=== PATIENT | female | born 1940 | race Caucasian/White ===

== ENCOUNTER 2018-03-11 23:50 | Emergency (ER) | payer OTHER, BC ==
--- OUTSIDE RECORDS SUMMARY | 2018-03-11 23:53 | XMS REPORT | Clinical Summary ---
:1940 Author Organization [facility] Address [address] [place] [address] Phone Care Team Providers Name Role Phone Unavailable Primary Care Provider Unavailable Allergies Active Allergy Reactions Severity Noted Date Comments Lisinopril Other (See Comments) 03/19/2017 Dry cough Current Medications Prescription Sig. Disp. Refills Start End Status Date Date CHOLECALCIFEROL, Take by mouth. Suspended VITAMIN D3, (VITAMIN D3 ORAL) insulin glargine Inject 10 Units Discontinued (LANTUS) 100 subcutaneously 017 unit/mL injection nightly Use as directed . levoFLOXacin Take 500 mg by Discontinued (LEVAQUIN) 500 MG mouth daily. 017 tablet levothyroxine Take 50 mcg by Discontinued (SYNTHROID, mouth Every 018 LEVOTHROID) 50 MCG morning on an tablet empty stomach. magnesium oxide Take 400 mg by Discontinued (MAG-OX) 400 mg mouth daily. 017 tablet sodium bicarbonate Take 1 tablet by Discontinued 650 MG tablet mouth 2 (two) 017 times daily. HYDROcodone-acetami Take 2 tablets by Suspended nophen (NORCO mouth every 6 10-325) 10-325 mg (six) hours as per tablet needed for Pain . anastrozole Take 1 mg by mouth Discontinued (ARIMIDEX) 1 mg daily. 018 tablet fLUoxetine (PROZAC) Take 10 mg by Suspended 10 MG capsule mouth daily. pravastatin Take 20 mg by Suspended (PRAVACHOL) 20 MG mouth nightly. tablet cyclobenzaprine Take 10 mg by Discontinued (FLEXERIL) 5 MG mouth 3 (three) 018 tablet times daily as needed for Muscle spasms . cephalexin (KEFLEX) Take 1 capsule 20 capsule 0 500 MG capsule (500 mg total) by 7 017 mouth 4 (four) times daily for 5 days. furosemide (LASIX) Take 20 mg by Suspended 20 MG tablet mouth 2 (two) times daily. potassium chloride Take 20 mEq by Suspended (KLOR-CON) 20 mEq mouth 2 (two) packet times daily. metoprolol Take 25 mg by Suspended (TOPROL-XL) 25 MG mouth daily. 24 hr tablet cefdinir (OMNICEF) Take 1 capsule 10 capsule 0 300 MG capsule (300 mg total) by 7 017 mouth 2 (two) times daily for 5 days. acetaminophen-codei Take 1 tablet by 15 tablet 0 Discontinued ne (TYLENOL #3) mouth every 6 7 018 300-30 mg per (six) hours as tablet needed for Pain (WARNING CAUSES SEDATION) for up to 15 doses. Max Daily Amount: 4 tablets omeprazole Take 40 mg by Suspended (PRILOSEC) 40 MG mouth daily. capsule levoFLOXacin Take 1 tablet (750 7 tablet 0 (LEVAQUIN) 750 MG mg total) by mouth 8 018 tablet daily for 7 days. Active Problems Problem Noted Date Hydronephrosis 08/06/2017 Nephrostomy tube displaced (HCC) 08/06/2017 Ureteral stricture 03/23/2017 History of cervical cancer 11/02/1987 Encounters Date Type Specialty Care Team Description 02/24/2018 Hospital Encounter Radiology Vince Buchanan HydronephrosisCaeasr MD unspecified hydronephrosis type 02/18/2018 Outside Orders Central Scheduling Vince BuchananphCaesar carvalho MD unspecified hydronephrosis type (Primary Dx) 12/28/2017 Emergency Emergency Medicine Leslie Wiseman Obstructed nephrostomy MD Yaya tube ([facility]) (Primary Dx);Right upper quadrant abdominal pain;Acute right-sided thoracic back pain;Hydronephrosis with ureteral stricture, not elsewhere classified;Nephrostomy tube displaced (HCC) 12/10/2017 Emergency Emergency Medicine Lselie Abraham Nephrostomy tube MD Drake displaced ([facility]) (Primary Dx);Acute pyelonephritis;Control led type 2 diabetes mellitus without complication, unspecified custodial insulin use status ([facility]);History of cervical cancer 11/19/2017 Hospital Encounter Radiology Vince Buchanan HydronephrosisCaesar MD unspecified hydronephrosis type 11/12/2017 Outside Orders Central Scheduling Vince Buchanan HydronephrosisCaesar MD unspecified hydronephrosis type (Primary Dx) 10/31/2017 Emergency Emergency Medicine Henry Barrett Nephlorie Payan MD complication ([facility]) (Primary Dx);Flank pain 08/05/2017 - Emergency General Internal Tj Roberts Hydronephrosis, 08/07/2017 Medicine MD Dilan unspecified Massumi Eneida hydronephrosis type MD Nikunj (Primary Dx);Nephrostomy tube displaced ([facility]) 07/07/2017 Emergency Emergency Medicine Augustine North Malfunction of MD Dilan nephrostomy tube ([facility]) (Primary Dx);Urinary tract infection without hematuria, site unspecified;Dehydratio n 06/16/2017 Procedure Pass 05/06/2017 Hospital Encounter Radiology Vince Buchanan Canceled (Patient) MD Caesar 05/01/2017 Emergency Emergency Medicine Leslie Abraham Nephrostomy tube MD Drake displaced ([facility]) (Primary Dx);Urinary tract infection associated with nephrostomy catheter, initial encounter ([facility]) 03/23/2017 - Hospital Encounter General Internal Vince Buchanan History of cervical 03/24/2017 Medicine MD Caesar cancer 03/23/2017 Procedure Pass 03/23/2017 Surgery Vince Buchanan CYSTOSCOPY,RETROGRADES MD Caesar 03/20/2017 Anesthesia Event Mariama Goff MD 03/19/2017 Orders Only Pre-Admission Lilian Fry Testing L after 03/10/2017 Family History Medical History Relation Name Comments Heart disease Daughter Cancer Father Diabetes Mother Heart disease Mother Diabetes Sister Relation Name Status Comments Daughter Father Mother Sister Social History Tobacco Use Types Packs/Day Years Used Date Never Smoker Smokeless Tobacco: Never Used Alcohol Use Drinks/Week oz/Week Comments Yes 14 Glasses of wine 8.4 Sex Assigned at Date Recorded Not on file Last Filed Vital Signs Vital Sign Reading Time Taken Blood Pressure 145/67 02/24/2018 11:55 AM CDT Pulse 71 02/24/2018 11:55 AM CDT Temperature 36.7 C (98 F) 02/24/2018 10:05 AM CDT Respiratory Rate 18 02/24/2018 11:55 AM CDT Oxygen Saturation 100% 02/24/2018 11:55 AM CDT Inhaled Oxygen Concentration - - Weight 59 kg (130 lb) 12/28/2017 8:41 AM HOOP FLARING MACHINE OPERATOR HELPER Height 157.5 cm (5' 2") 12/28/2017 8:41 AM HOOP FLARING MACHINE OPERATOR HELPER Body Mass Index 23.78 12/28/2017 8:41 AM HOOP FLARING MACHINE OPERATOR HELPER Plan of Treatment Not on file Procedures The patient is currently admitted. The information in this section might not be complete until the patient is discharged. Procedure Name Priority Date/Time Associated Diagnosis Comments CYSTOSCOPY,RETROGRADES 03/23/2017 10:55 AM Hydronephrosis, CDT bilateral after 03/10/2017 Results IR Nephrosotomy Tube Change Right (02/24/2018 11:50 AM)Only the most recent of7 resultswithin the time period is included. Specimen Performing Laboratory GE [facility] Narrative FINAL REPORT Left percutaneous nephroureterostomy and right percutaneous nephrostomy catheter exchange. History: 77-year-old female with history of ureteral strictures presents for routine catheter exchange. Modality: Fluoroscopy Sedation: None Car Wash Attendant:Gerald Baeza MD. Metal Weather Stripper:None. Approach: Bilateral flanks Estimated blood loss:< 5 cc. Specimen: None. Fluoroscopy Time: 1.4 min. Reference Air Kerma (Ka, r): 17.0 mGy. Technique: Informed written consent was obtained. Discussion of risks, benefits, and alternatives were made with the patient. The patient expressed understanding and agreed to proceed.A universal timeout was performed prior to starting the procedure.All elements maximal sterile barrier technique was utilized for this procedure, including utilization of sterile scrub solution for skin prep, a large sterile sheet to cover the areas of the patient that were not prepped, and hand hygiene, mask, head covering, and sterile gown for performing radiologist and scrub technologist. A pressroom foreman image images was obtained. Contrast was injected through the indwelling left percutaneous nephroureterostomy catheter confirming position. 2% lidocaine was used for local anesthesia. The indwelling catheter was cut and a 0.035 Bentson wire was advanced and coiled within the urinary bladder. The existing catheter was removed over wire and a new 8.5 [place] by 22 cm nephroureterostomy was advanced over wire with distal pigtail formed in the urinary bladder and proximal pigtail within the left renal pelvis. Contrast injection confirmed position. The catheter was fixed to the skin with silk suture. A sterile dressing was applied. Next, contrast was injected through the right particularly in his nephrostomy catheter confirming position. 2% lidocaine was used for local anesthesia. The indwelling catheter was cut and a 0.035 Bentson wire was advanced and coiled within the right renal pelvis. The existing catheter was removed the wire and a new 10.2 [place] pigtail catheter was advanced over wire with pigtail formed within the right renal pelvis. The catheter was fixed to the skin with silk suture and dressing was applied. The patient tolerated the procedure well without immediate complication. Impression: Successful fluoroscopic-guided left percutaneous nephroureterostomy and right percutaneous nephrostomy catheter exchange. Signed: Gerald Baeza MD Report Verified Date/Time:02/24/2018 16:05:12 Reading Location: [place] [address] Angio Body Reading Room Procedure Note Interface, External Ris In - 02/24/2018 4:07 PM CDT FINAL REPORT Left percutaneous nephroureterostomy and right percutaneous nephrostomy catheter exchange. History: 77-year-old female with history of ureteral strictures presents for routine catheter exchange. Modality: Fluoroscopy Sedation: None Car Wash Attendant: Gerald Baeza MD. Metal Weather Stripper: None. Approach: Bilateral flanks Estimated blood loss: < 5 cc. Specimen: None. Fluoroscopy Time: 1.4 min. Reference Air Kerma (Ka, r): 17.0 mGy. Technique: Informed written consent was obtained. Discussion of risks, benefits, and alternatives were made with the patient. The patient expressed understanding and agreed to proceed. A universal timeout was performed prior to starting the procedure. All elements maximal sterile barrier technique was utilized for this procedure, including utilization of sterile scrub solution for skin prep, a large sterile sheet to cover the areas of the patient that were not prepped, and hand hygiene, mask, head covering, and sterile gown for performing radiologist and scrub technologist. A pressroom foreman image images was obtained. Contrast was injected through the indwelling left percutaneous nephroureterostomy catheter confirming position. 2% lidocaine was used for local anesthesia. The indwelling catheter was cut and a 0.035 Bentson wire was advanced and coiled within the urinary bladder. The existing catheter was removed over wire and a new 8.5 [place] by 22 cm nephroureterostomy was advanced over wire with distal pigtail formed in the urinary bladder and proximal pigtail within the left renal pelvis. Contrast injection confirmed position. The catheter was fixed to the skin with silk suture. A sterile dressing was applied. Next, contrast was injected through the right particularly in his nephrostomy catheter confirming position. 2% lidocaine was used for local anesthesia. The indwelling catheter was cut and a 0.035 Bentson wire was advanced and coiled within the right renal pelvis. The existing catheter was removed the wire and a new 10.2 [place] pigtail catheter was advanced over wire with pigtail formed within the right renal pelvis. The catheter was fixed to the skin with silk suture and dressing was applied. The patient tolerated the procedure well without immediate complication. Impression: Successful fluoroscopic-guided left percutaneous nephroureterostomy and right percutaneous nephrostomy catheter exchange. Signed: Gerald Baeza MD Report Verified Date/Time: 02/24/2018 16:05:12 Reading Location: [place] [address] Angio Body Reading Room Nephrosotomy Tube Change Left (02/24/2018 11:30 AM)Only the most recent of3 resultswithin the time period is included. Specimen Performing Laboratory GE RIS Narrative FINAL REPORT Left percutaneous nephroureterostomy and right percutaneous nephrostomy catheter exchange. History: 77-year-old female with history of ureteral strictures presents for routine catheter exchange. Modality: Fluoroscopy Sedation: None Car Wash Attendant:Gerald Baeza MD. Metal Weather Stripper:None. Approach: Bilateral flanks Estimated blood loss:< 5 cc. Specimen: None. Fluoroscopy Time: 1.4 min. Reference Air Kerma (Ka, r): 17.0 mGy. Technique: Informed written consent was obtained. Discussion of risks, benefits, and alternatives were made with the patient. The patient expressed understanding and agreed to proceed.A universal timeout was performed prior to starting the procedure.All elements maximal sterile barrier technique was utilized for this procedure, including utilization of sterile scrub solution for skin prep, a large sterile sheet to cover the areas of the patient that were not prepped, and hand hygiene, mask, head covering, and sterile gown for performing radiologist and scrub technologist. A pressroom foreman image images was obtained. Contrast was injected through the indwelling left percutaneous nephroureterostomy catheter confirming position. 2% lidocaine was used for local anesthesia. The indwelling catheter was cut and a 0.035 Bentson wire was advanced and coiled within the urinary bladder. The existing catheter was removed over wire and a new 8.5 [place] by 22 cm nephroureterostomy was advanced over wire with distal pigtail formed in the urinary bladder and proximal pigtail within the left renal pelvis. Contrast injection confirmed position. The catheter was fixed to the skin with silk suture. A sterile dressing was applied. Next, contrast was injected through the right particularly in his nephrostomy catheter confirming position. 2% lidocaine was used for local anesthesia. The indwelling catheter was cut and a 0.035 Bentson wire was advanced and coiled within the right renal pelvis. The existing catheter was removed the wire and a new 10.2 [place] pigtail catheter was advanced over wire with pigtail formed within the right renal pelvis. The catheter was fixed to the skin with silk suture and dressing was applied. The patient tolerated the procedure well without immediate complication. Impression: Successful fluoroscopic-guided left percutaneous nephroureterostomy and right percutaneous nephrostomy catheter exchange. Signed: Gerald Baeza MD Report Verified Date/Time:02/24/2018 16:05:12 Reading Location: [facility] [address] Angio Body Reading Room Procedure Note Interface, External Ris In - 02/24/2018 4:07 PM CDT FINAL REPORT Left percutaneous nephroureterostomy and right percutaneous nephrostomy catheter exchange. History: 77-year-old female with history of ureteral strictures presents for routine catheter exchange. Modality: Fluoroscopy Sedation: None Car Wash Attendant: Gerald Baeza MD. Metal Weather Stripper: None. Approach: Bilateral flanks Estimated blood loss: < 5 cc. Specimen: None. Fluoroscopy Time: 1.4 min. Reference Air Kerma (Ka, r): 17.0 mGy. Technique: Informed written consent was obtained. Discussion of risks, benefits, and alternatives were made with the patient. The patient expressed understanding and agreed to proceed. A universal timeout was performed prior to starting the procedure. All elements maximal sterile barrier technique was utilized for this procedure, including utilization of sterile scrub solution for skin prep, a large sterile sheet to cover the areas of the patient that were not prepped, and hand hygiene, mask, head covering, and sterile gown for performing radiologist and scrub technologist. A pressroom foreman image images was obtained. Contrast was injected through the indwelling left percutaneous nephroureterostomy catheter confirming position. 2% lidocaine was used for local anesthesia. The indwelling catheter was cut and a 0.035 Bentson wire was advanced and coiled within the urinary bladder. The existing catheter was removed over wire and a new 8.5 [place] by 22 cm nephroureterostomy was advanced over wire with distal pigtail formed in the urinary bladder and proximal pigtail within the left renal pelvis. Contrast injection confirmed position. The catheter was fixed to the skin with silk suture. A sterile dressing was applied. Next, contrast was injected through the right particularly in his nephrostomy catheter confirming position. 2% lidocaine was used for local anesthesia. The indwelling catheter was cut and a 0.035 Bentson wire was advanced and coiled within the right renal pelvis. The existing catheter was removed the wire and a new 10.2 [place] pigtail catheter was advanced over wire with pigtail formed within the right renal pelvis. The catheter was fixed to the skin with silk suture and dressing was applied. The patient tolerated the procedure well without immediate complication. Impression: Successful fluoroscopic-guided left percutaneous nephroureterostomy and right percutaneous nephrostomy catheter exchange. Signed: Gerald Baeza MD Report Verified Date/Time: 02/24/2018 16:05:12 Reading Location: [place] [id number] Angio Body Reading Room /aPTT (12/28/2017 9:33 AM)Only the most recent of5 resultswithin the time period is included. Component Value Ref Range Protime 13.0 11.7 - 14.7 seconds INR 1.0 <=5.9 PTT 28.9 22.5 - 36.0 seconds Specimen Performing Laboratory Blood [address] [address] Narrative RECOMMENDED COUMADIN/WARFARIN INR THERAPY RANGES STANDARD DOSE: 2.0 - 3.0 Includes: PROPHYLAXIS for venous thrombosis, systemic embolization; TREATMENT for venous thrombosis and/or pulmonary embolus. HIGH RISK: Target INR is 2.5-3.5 for patients with mechanical heart valves. Urinalysis w/Microscopic (12/28/2017 9:32 AM)Only the most recent of6 resultswithin the time period is included. Component Value Ref Range Color, UA [place] Clarity, UA Cloudy Specific Flom, UA 1.021 1.001 - 1.035 pH, UA 8.5 (H) 5.0 - 8.0 Protein, UA >600 mg/dL (A) Negative Glucose, UA Negative Negative Ketones, UA Negative Negative Bilirubin, UA Positive (A) Negative Blood, UA Negative Negative Nitrite, UA Positive (A) Negative Leukocytes, UA Small (A) Negative Urobilinogen, UA 2.0 (H) 0.2 - 1.0 mg/dL RBC, UA 0 /HPF WBC, UA 94 /HPF Mucus Occasional Triple Phosphate Crystals Moderate Specimen Source Urine, Nephrostomy Specimen Performing Laboratory Urine - Urine, Nephrostomy [address] [address] Urine culture (12/28/2017 9:32 AM)Only the most recent of5 resultswithin the time period is included. Component Value Ref Range Result >100,000 col/mL skin thomas Specimen Performing Laboratory Urine - Urine, Nephrostomy [address] [address] CBC with platelet count + automated diff (12/28/2017 9:31 AM)Only the most recent of8 resultswithin the time period is included. Component Value Ref Range WBC 10.4 3.5 - 10.5 K/L RBC 3.48 (L) 3.93 - 5.22 M/L Hemoglobin 10.8 (L) 11.2 - 15.7 GM/DL Hematocrit 34.4 34.1 - 44.9 % MCV 98.9 (H) 79.4 - 94.8 fL MCH 31.0 25.6 - 32.2 pg MCHC 31.4 (L) 32.2 - 35.5 GM/DL RDW 14.0 11.7 - 14.4 % Platelets 255 150 - 450 K/CU MM MPV 10.6 9.4 - 12.3 fL nRBC 0 0 - 0 /100 WBC % Neutros 82 % % Lymphs 9 % % Monos 8 % % Eos 1 % % Baso 0 % # Neutros 8.58 (H) 1.56 - 6.13 K/L # Lymphs 0.95 (L) 1.18 - 3.74 K/L # Monos 0.79 (H) 0.24 - 0.36 K/L # Eos 0.05 0.04 - 0.36 K/L # Baso 0.02 0.01 - 0.08 K/L Immature Granulocytes-Relative 0 0 - 1 % Specimen Performing Laboratory Blood - Arm, [address] [address] CBC with platelet count + automated diff (12/28/2017 9:31 AM)Only the most recent of8 resultswithin the time period is included. Specimen Performing Laboratory Blood Narrative The following orders were created for panel order CBC with platelet count + automated diff. Procedure Abnormality Status --------- ------ CBC with platelet count ...[[id number]]AbnormalFinal result Please view results for these tests on the individual orders. Basic Metabolic Panel (12/28/2017 9:31 AM)Only the most recent of9 resultswithin the time period is included. Component Value Ref Range Sodium 137 136 - 145 meq/L Potassium 5.0 3.5 - 5.1 meq/L Chloride 104 98 - 107 meq/L CO2 25 22 - 29 meq/L BUN 39 (H) 7 - 21 mg/dL Creatinine 1.13 0.57 - 1.25 mg/dL Glucose 127 (H) 70 - 105 mg/dL Calcium 9.0 8.4 - 10.2 mg/dL EGFR 47Comment: ESTIMATED GFR IS NOT ACCURATE mL/min/1.73 sq m CREATININE CLEARANCE IN PREDICTING GLOMERULAR FILTRATION RATE. ESTIMATED GFR IS NOT APPLICABLE FOR DIALYSIS PATIENTS. Specimen Performing Laboratory Blood - Arm, Right [address] [address] XR abdomen 2 views flat and upright (10/31/2017 2:15 PM) Specimen Performing Laboratory GE [facility] Narrative FINAL REPORT Four views of the abdomen. IMPRESSION: None. IMPRESSION: Right nephrostomy and left nephroureterostomy catheters in position. Postsurgical changes are also seen in the lower lumbar spine and right hip. The bowel gas pattern is nonspecific. There are vascular calcifications. The osseous structures demonstrate degenerative change. No definite free intraperitoneal air. Signed: Haresh Juarez MD Report Verified Date/Time:10/31/2017 14:41:15 Reading Location: [address] Ortho Consult Reading Room Procedure Note Interface, External Ris In - 10/31/2017 2:43 PM HOOP FLARING MACHINE OPERATOR HELPER FINAL REPORT Four views of the abdomen. IMPRESSION: None. IMPRESSION: Right nephrostomy and left nephroureterostomy catheters in position. Postsurgical changes are also seen in the lower lumbar spine and right hip. The bowel gas pattern is nonspecific. There are vascular calcifications. The osseous structures demonstrate degenerative change. No definite free intraperitoneal air. Signed: Haresh Juarez MD Report Verified Date/Time: 10/31/2017 14:41:15 Reading Location: [address] Ortho Consult Reading Room -Glucose meter (08/07/2017 12:36 PM)Only the most recent of10 resultswithin the time period is included. Component Value Ref Range POC-Glucose Meter 120 (H)Comment: TESTED AT [address] 70 - 110 mg/[place] [id number] Specimen Performing Laboratory Blood [address] [address] Magnesium (08/07/2017 4:35 AM) Component Value Ref Range Magnesium 1.4 (L) 1.6 - 2.6 mg/dL Specimen Performing Laboratory Blood - Arm, Left [address] [address] Blood culture #2 (08/06/2017 6:02 AM)Only the most recent of2 resultswithin the time period is included. Component Value Ref Range Result No growth in 5 days Specimen Performing Laboratory Blood - Arm, Right [address] [address] Hemoglobin A1c (08/06/2017 5:54 AM) Component Value Ref Range Hemoglobin A1C 5.7 4.3 - 6.1 % Specimen Performing Laboratory Blood - Central Venous Line [address] [address] US renal complete (08/06/2017 3:32 AM) Specimen Performing Laboratory GE RIS Narrative FINAL REPORT U/S, RENAL, COMPLETE CLINICAL INDICATION:"ABDOMINAL PAIN" COMPARISON: None TECHNIQUE:The kidneys and urinary bladder were evaluated using real time melendez scale and color Doppler sonography. FINDINGS: Right kidney: There is severe hydronephrosis. A percutaneous nephrostomy tube is partially visualized within the renal pelvis. Left kidney: Normal renal morphology without hydronephrosis. A percutaneous nephrostomy tube is present in the left renal pelvis. Renal Vasculature: Doppler interrogation reveals preserved vascular flow in the main renal arteries and veins bilaterally. The visualized portions of the abdominal aorta and IVC are unremarkable. Urinary bladder: The bladder is decompressed and difficult to visualize. No nephroureterostomy tubing is visualized in the bladder. IMPRESSION: Severe right-sided hydronephrosis. Percutaneous nephrostomy tube is positioned in the right renal pelvis however. Correlate with tube output from this side. Decompressed left renal collecting system with a percutaneous nephrostomy tube. No tubes are visualized in the bladder and if the patient has nephroureterostomy tubes, distal positioning cannot be confirmed. CT can be obtained if there is persistent clinical concern. Signed: Sarina Mclean MD Report Verified Date/Time:08/06/2017 03:58:39 Reading Location: [address] Consult Reading Room Procedure Note Interface, External Ris In - 08/06/2017 4:00 AM CDT FINAL REPORT U/S, RENAL, COMPLETE CLINICAL INDICATION: "ABDOMINAL PAIN" COMPARISON: None TECHNIQUE: The kidneys and urinary bladder were evaluated using real time melendez scale and color Doppler sonography. FINDINGS: Right kidney: There is severe hydronephrosis. A percutaneous nephrostomy tube is partially visualized within the renal pelvis. Left kidney: Normal renal morphology without hydronephrosis. A percutaneous nephrostomy tube is present in the left renal pelvis. Renal Vasculature: Doppler interrogation reveals preserved vascular flow in the main renal arteries and veins bilaterally. The visualized portions of the abdominal aorta and IVC are unremarkable. Urinary bladder: The bladder is decompressed and difficult to visualize. No nephroureterostomy tubing is visualized in the bladder. IMPRESSION: Severe right-sided hydronephrosis. Percutaneous nephrostomy tube is positioned in the right renal pelvis however. Correlate with tube output from this side. Decompressed left renal collecting system with a percutaneous nephrostomy tube. No tubes are visualized in the bladder and if the patient has nephroureterostomy tubes, distal positioning cannot be confirmed. CT can be obtained if there is persistent clinical concern. Signed: Sarina Mclean MD Report Verified Date/Time: 08/06/2017 03:58:39 Reading Location: [facility] [id number] Ortho Consult Reading Room Lipase (08/05/2017 10:55 PM) Component Value Ref Range Lipase 31 8 - 78 U/L Specimen Performing Laboratory Blood - [address] [address] Amylase (08/05/2017 10:55 PM) Component Value Ref Range Amylase 71 25 - 125 U/L Specimen Performing Laboratory Blood - [address] [address] Hepatic function panel (08/05/2017 10:55 PM) Component Value Ref Range Protein, Total 7.3 6.0 - 8.3 gm/dL Albumin 3.5 3.5 - 5.0 g/dL Total Bilirubin <0.3 0.2 - 1.2 mg/dL Bilirubin, Direct 0.1 0.1 - 0.5 mg/dL Alkaline Phosphatase 92 40 - 150 U/L AST 17 5 - 34 U/L ALT 12 6 - 55 U/L Specimen Performing Laboratory Blood - [address] [address] IR Nephrostogram (03/24/2017 12:00 PM) Specimen Performing Laboratory [facility] Narrative FINAL REPORT Percutaneous Nephrostomy: Pertinent clinical information: Cervical cancer bilateral hydronephrosis Comparison: No comparison Modality: Sonography and fluoroscopy, 11 images were submitted for interpretation. Conscious Sedation: Versed 1 mg and fentanyl 50 mcg intravenously During the procedure with conscious sedation, the patient was monitored continuously with pulse oximetry and electrocardiography by the attending physician and registered nurse. Patient/Physician face to face intraservice time: 40 minutes Anesthesia:Two percent Lidocaine injected subcutaneously at the insertion site. Approach: Right and left flank Labs sent: Negative Antibiotics: Levaquin 500 mg intravenously For maximum sterile barrier protection a mask, cap, sterile gloves, sterile drape, sterile gown, and a cutaneous antiseptic was utilized. Fluoro time in minutes: 10.0 minutes. Total dose 136.3 mGy.11 images Technique:After informed written consent was obtained, the patient was prepped and draped in the usual sterile manner.Access was obtained using sonographic guidance.A 21-gauge Chiba needle was advanced into each upper collecting system.Subsequently, a wire was advanced through the needle.The tract was dilated to 8.5 Citizen [place]. A small bore catheter was advanced into the upper collecting system. A nephrostogram demonstrated bilateral hydronephrosis. The left upper collecting system was less distended. A left nephroureteral stent was placed measuring 22 cm in length. The right upper collecting system was moderately distended. A percutaneous nephrostomy was placed. Multiple attempts at traversing the UPJ were unsuccessful. Attempting the nephroureteral stent placement after the kidney has drained is recommended if clinically appropriate. A nurse was present and monitored blood pressure measurements, pulse oximetry and ECG tracings. The patient tolerated the procedure well. Impression: Successful, uncomplicated placement of a left nephroureteral stent and a right percutaneous nephrostomy catheter. Signed: Lee Ann Driscoll MD Report Verified Date/Time:03/24/2017 17:49:28 Reading Location: [facility] P048 Angio Body Reading Room Procedure Note Interface, External Ris In - 03/24/2017 5:51 PM CDT FINAL REPORT Percutaneous Nephrostomy: Pertinent clinical information: Cervical cancer bilateral hydronephrosis Comparison: No comparison Modality: Sonography and fluoroscopy, 11 images were submitted for interpretation. Conscious Sedation: Versed 1 mg and fentanyl 50 mcg intravenously During the procedure with conscious sedation, the patient was monitored continuously with pulse oximetry and electrocardiography by the attending physician and registered nurse. Patient/Physician face to face intraservice time: 40 minutes Anesthesia: Two percent Lidocaine injected subcutaneously at the insertion site. Approach: Right and left flank Labs sent: Negative Antibiotics: Levaquin 500 mg intravenously For maximum sterile barrier protection a mask, cap, sterile gloves, sterile drape, sterile gown, and a cutaneous antiseptic was utilized. Fluoro time in minutes: 10.0 minutes. Total dose 136.3 mGy.11 images Technique: After informed written consent was obtained, the patient was prepped and draped in the usual sterile manner. Access was obtained using sonographic guidance. A 21-gauge Chiba needle was advanced into each upper collecting system. Subsequently, a wire was advanced through the needle. The tract was dilated to 8.5 Citizen Of [place]. A small bore catheter was advanced into the upper collecting system. A nephrostogram demonstrated bilateral hydronephrosis. The left upper collecting system was less distended. A left nephroureteral stent was placed measuring 22 cm in length. The right upper collecting system was moderately distended. A percutaneous nephrostomy was placed. Multiple attempts at traversing the UPJ were unsuccessful. Attempting the nephroureteral stent placement after the kidney has drained is recommended if clinically appropriate. A nurse was present and monitored blood pressure measurements, pulse oximetry and ECG tracings. The patient tolerated the procedure well. Impression: Successful, uncomplicated placement of a left nephroureteral stent and a right percutaneous nephrostomy catheter. Signed: Lee Ann Driscoll MD Report Verified Date/Time: 03/24/2017 17:49:28 Reading Location: [facility] P048 Angio Body Reading Room Hemoglobin and hematocrit - in AM (03/24/2017 5:38 AM)Only the most recent of2 resultswithin the time period is included. Component Value Ref Range Hemoglobin 9.1 (L) 12.0 - 15.0 GM/DL Hematocrit 29.3 (L) 36.0 - 45.0 % Specimen Performing Laboratory Blood [facility] [address] [place] [address] Prothrombin time/INR (03/23/2017 2:26 PM) Component Value Ref Range Protime 15.6 (H) 11.7 - 14.7 seconds INR 1.3 <=5.9 Specimen Performing Laboratory Blood [address] [address] Narrative RECOMMENDED COUMADIN/WARFARIN INR THERAPY RANGES STANDARD DOSE: 2.0 - 3.0 Includes: PROPHYLAXIS for venous thrombosis, systemic embolization; TREATMENT for venous thrombosis and/or pulmonary embolus. HIGH RISK: Target INR is 2.5-3.5 for patients with mechanical heart valves. [place] [employer] radio presenter in or 30 minute increments (03/23/2017 1:00 PM) Specimen Performing Laboratory [facility] Narrative FINAL REPORT 16 abdomen images. Fluoroscopy time 0.17 minutes. Fluoroscopy was not performed by the undersigned. Refer to procedure notes for diagnostic and therapeutic detail. Signed: Leslie Morrissey MD Report Verified Date/Time:03/23/2017 16:49:30 Reading Location: [address] Consult Reading Room Procedure Note Interface, External Ris In - 03/23/2017 4:51 PM CDT FINAL REPORT 16 abdomen images. Fluoroscopy time 0.17 minutes. Fluoroscopy was not performed by the undersigned. Refer to procedure notes for diagnostic and therapeutic detail. Signed: Leslie Morrissey MD Report Verified Date/Time: 03/23/2017 16:49:30 Reading Location: [facility] C0[facility] Consult Reading Room and Creatinine (03/23/2017 11:13 AM) Component Value Ref Range BUN 38 (H) 7 - 21 mg/dL Creatinine 1.61 (H) 0.57 - 1.25 mg/dL EGFR 31Comment: ESTIMATED GFR IS NOT ACCURATE mL/min/1.73 sq m CREATININE CLEARANCE IN PREDICTING GLOMERULAR FILTRATION RATE. ESTIMATED GFR IS NOT APPLICABLE FOR DIALYSIS PATIENTS. Specimen Performing Laboratory Blood [address] [address] Electrolytes (03/23/2017 11:13 AM) Component Value Ref Range Sodium 141 136 - 145 meq/L Potassium 3.7 3.5 - 5.1 meq/L Chloride 107 98 - 107 meq/L CO2 24 22 - 29 meq/L Specimen Performing Laboratory Blood [facility] [address] [address] after 03/10/2017
--- OUTSIDE RECORDS SUMMARY | 2018-03-11 23:54 | XMS REPORT ---
:[address] [facility] Address [address] [place] [address] Care Team Providers Name Role Phone JESSICA LESLIE CHAPIN Unavailable Unavailable FRANCHESKALESLIE Ayala Unavailable Unavailable SAMLAURE CASTRO Unavailable Unavailable JOSUEYANA Unavailable Unavailable ARACELI, BRENDA DAYANA Unavailable Unavailable Problems This patient has no known problems. Allergies, Adverse Reactions, Alerts This patient has no known allergies or adverse reactions. Medications This patient has no known medications. Results Test Description Test Time Test Comments Text Results Atomic Results Result Comments CHELSI MULLINS 2018-02-24 Reason for FINAL REPORT PATIENT ID: TUBE CHANGE, LEFT 16:05:00 Exam:->n13.30 [id number] Left percutaneous nephroureterostomy and right percutaneous nephrostomy catheter exchange. History: 77-year-old female with history of ureteral strictures presents for routine catheter exchange. Modality: Fluoroscopy Sedation: None Refinery Operator Helper Cracking Unit: Gerald Baeza MD. Polisher And Sander: None. Approach: Bilateral flanks Estimated blood loss: < 5 cc. Specimen: None. Fluoroscopy Time: 1.4 min.Reference Air Kerma (Ka, r): 17.0 mGy. Technique: [...] for performing radiologist and scrub technologist. A director patient image images was obtained. Contrast was injected through the indwelling left percutaneous nephroureterostomy catheter confirming position. 2% lidocaine was used for local anesthesia. The indwelling catheter was cut and a 0.035 Bentson wire was advanced and coiled within the urinary bladder. The existing catheter was removed over wire and a new 8.5 [place] by 22 cm nephroureterostomy was advanced over [...] removed the wire and a new 10.2 [place] pigtail catheter was advanced over wire with pigtail formed within the right renal pelvis. The catheter was fixed to the skin with silk suture and dressing was applied. The patient tolerated the procedure well without immediate complication. Impression: Successful fluoroscopic-guided left percutaneous nephroureterostomy and right percutaneous nephrostomy catheter exchange. Signed: Gerald Baeza [facility] Verified Date/Time: 02/24/2018 16:05:12 Reading Location: [place] [address] Angio Body Reading Room REET, NEPHROSTOMY 2018-02-24 Reason for FINAL REPORT PATIENT ID: TUBE CHANGE, RIGHT 16:05:00 Exam:->n13.30 [id number] Left percutaneous nephroureterostomy and right percutaneous nephrostomy catheter exchange. History: 77-year-old female with history of ureteral strictures presents for routine catheter exchange. Modality: Fluoroscopy Sedation: None Refinery Operator Helper Cracking Unit: Gerald Baeza MD. Polisher And Sander: None. Approach: Bilateral flanks Estimated blood loss: < 5 cc. Specimen: None. Fluoroscopy Time: 1.4 min.Reference Air Kerma (Ka, r): 17.0 mGy. Technique: [...] for performing radiologist and scrub technologist. A director patient image images was obtained. Contrast was injected through the indwelling left percutaneous nephroureterostomy catheter confirming position. 2% lidocaine was used for local anesthesia. The indwelling catheter was cut and a 0.035 Bentson wire was advanced and coiled within the urinary bladder. The existing catheter was removed over wire and a new 8.5 [place] by 22 cm nephroureterostomy was advanced over [...] removed the wire and a new 10.2 [place] pigtail catheter was advanced over wire with pigtail formed within the right renal pelvis. The catheter was fixed to the skin with silk suture and dressing was applied. The patient tolerated the procedure well without immediate complication. Impression: Successful fluoroscopic-guided left percutaneous nephroureterostomy and right percutaneous nephrostomy catheter exchange. Signed: Gerald Baeza MDReport Verified Date/Time: 02/24/2018 16:05:12 Reading Location: [address] Body Reading Room , NEPHROSTOMY 2017-12-29 Reason for FINAL REPORT PATIENT ID: TUBE CHANGE, RIGHT 17:02:00 exam:->ABDOMINAL [id number] History: PAIN, flank pain, Malfunctioning right blockage nephrostomy tube, renal obstruction. PROCEDURE: Following informed written consent, the patient's existing right external nephrostomy catheter and surrounding skin site were prepped and draped in the usual sterile manner. 2% lidocaine was given locally for anesthesia. No conscious sedation was administered. Vital signs were monitored throughout the procedure by a registered nurse in the attending physician and remained stable. The patient received 500 mg of IV Levaquin prior to the procedure for antibiotic prophylaxis. Nephrostogram was performed through the pre-existing catheter. The catheter was then cut and removed over a Bentson wire. A new 10.2 [place] pigtail nephrostomy catheter was placed over the wire, through the existing access tract and into position under fluoroscopic control. The new catheter was injected with contrast under fluoroscopy, secured to the skin using 2-0 silk suture and placed to external gravity bag drainage. Overall, the patient tolerated the procedure well without immediate complications and was discharged from the department in stable condition. FINDINGS: Images obtained prior to and following nephrostomy tube exchange demonstrate both pre-existing and new nephrostomy catheters to lie in expected position within a moderately dilated right renal collecting system. IMPRESSION: 1. Successful uncomplicated fluoroscopically guided exchange of the patient's right external nephrostomy catheter. Total fluoroscopy time: 1.0 minutes. Estimated total patient dose reported as (Ka,r): 15.1 mGy. Signed: Leslie العراقي MDReport Verified Date/Time: 12/29/2017 17:02:02 Reading Location: [place] [address] Angio Body Reading Room E CULTURE 2017-12-29 12:00:00 Test Item Value Reference Range Comments CULTURE (BEAKER) (test arkf=6504) >100,000 col/mL skin thomas URINALYSIS W/ [id number] 10:15:00 Test Item Value Reference Range Comments COLOR (BEAKER) (test asep=682) [place]ba CLARITY (BEAKER) (test gmsw=838) Cloudy SPECIFIC GRAVITY UA (BEAKER) (test 1.021 1.001-1.035 dfec=896) PH UA (BEAKER) (test nsmq=972) 8.5 5.0-8.0 PROTEIN UA (BEAKER) (test uqnd=062) >600 mg/dL Negative GLUCOSE UA (BEAKER) (test rzlo=390) Negative Negative KETONES UA (BEAKER) (test rypr=332) Negative Negative BILIRUBIN UA (BEAKER) (test izni=602) Positive Negative BLOOD UA (BEAKER) (test rnxf=887) Negative Negative NITRITE UA (BEAKER) (test lghd=122) Positive Negative LEUKOCYTE ESTERASE UA (BEAKER) (test Small Negative nxtv=592) UROBILINOGEN UA (BEAKER) (test txnt=684) 2.0 mg/dL 0.2-1.0 RBC UA (BEAKER) (test totb=666) 0 /HPF WBC UA (BEAKER) (test vmmh=478) 94 /HPF MUCUS (BEAKER) (test tnyh=0064) Occasional TRIPLE PHOSPHATE CRYSTALS (BEAKER) (test Moderate rmqh=3808) SOURCE(BEAKER) (test pqqa=9919) Urine, Nephrostomy BASIC METABOLIC [id number] 10:04:00 Test Item Value Reference Range Comments SODIUM (BEAKER) (test 137 meq/L 136-145 rknn=027) POTASSIUM (BEAKER) (test 5.0 meq/L 3.5-5.1 tzap=924) CHLORIDE (BEAKER) (test 104 meq/L 98-107 yzuk=882) CO2 (BEAKER) (test 25 meq/L 22-29 opkk=486) BLOOD UREA NITROGEN 39 mg/dL 7-21 (BEAKER) (test tmsa=651) CREATININE (BEAKER) (test 1.13 mg/dL 0.57-1.25 nttn=697) GLUCOSE RANDOM (BEAKER) 127 mg/dL 70-105 (test mlkf=467) CALCIUM (BEAKER) (test 9.0 mg/dL 8.4-10.2 avyb=013) EGFR (BEAKER) (test 47 mL/min/1.73 sq m ESTIMATED GFR IS NOT yrts=0448) ACCURATE CREATININE CLEARANCE IN PREDICTING GLOMERULAR FILTRATION RATE. ESTIMATED GFR IS NOT APPLICABLE FOR DIALYSIS PATIENTS. [id number] 09:53:00 Test Item Value Reference Range Comments PROTIME (BEAKER) (test lnhr=789) 13.0 seconds 11.7-14.7 INR (BEAKER) (test hini=325) 1.0 <=5.9 PARTIAL THROMBOPLASTIN TIME (BEAKER) (test 28.9 seconds 22.5-36.0 bkzr=069) RECOMMENDED COUMADIN/WARFARIN INR THERAPY RANGESSTANDARD DOSE: 2.0 - 3.0 Includes: PROPHYLAXIS forvenous thrombosis, systemic embolization; TREATMENT for venous thrombosis and/or pulmonary embolus.HIGH RISK: Target INR is 2.5-3.5 for patients with mechanical heart valves.CBC W/PLT COUNT & AUTO [id number] 09:52:00 Test Item Value Reference Range Comments WHITE BLOOD CELL COUNT (BEAKER) (test gcfw=630) 10.4 K/ L 3.5-10.5 RED BLOOD CELL COUNT (BEAKER) (test jghr=404) 3.48 M/ L 3.93-5.22 HEMOGLOBIN (BEAKER) (test ikbj=458) 10.8 GM/DL 11.2-15.7 HEMATOCRIT (BEAKER) (test aaio=306) 34.4 % 34.1-44.9 MEAN CORPUSCULAR VOLUME (BEAKER) (test accw=689) 98.9 fL 79.4-94.8 MEAN CORPUSCULAR HEMOGLOBIN (BEAKER) (test 31.0 pg 25.6-32.2 bpzr=794) MEAN CORPUSCULAR HEMOGLOBIN CONC (BEAKER) (test 31.4 GM/DL 32.2-35.5 yxib=424) RED CELL DISTRIBUTION WIDTH (BEAKER) (test 14.0 % 11.7-14.4 jams=707) PLATELET COUNT (BEAKER) (test vkwn=272) 255 K/CU MM 150-450 MEAN PLATELET VOLUME (BEAKER) (test pfrc=245) 10.6 fL 9.4-12.3 NUCLEATED RED BLOOD CELLS (BEAKER) (test 0 /100 WBC 0-0 asjw=803) NEUTROPHILS RELATIVE PERCENT (BEAKER) (test 82 % yxep=783) LYMPHOCYTES RELATIVE PERCENT (BEAKER) (test 9 % ieuc=736) MONOCYTES RELATIVE PERCENT (BEAKER) (test 8 % cljr=954) EOSINOPHILS RELATIVE PERCENT (BEAKER) (test 1 % wgmp=642) BASOPHILS RELATIVE PERCENT (BEAKER) (test 0 % kjts=985) NEUTROPHILS ABSOLUTE COUNT (BEAKER) (test 8.58 K/ L 1.56-6.13 wgok=250) LYMPHOCYTES ABSOLUTE COUNT (BEAKER) (test 0.95 K/ L 1.18-3.74 tjdx=403) MONOCYTES ABSOLUTE COUNT (BEAKER) (test 0.79 K/ L 0.24-0.36 riaw=692) EOSINOPHILS ABSOLUTE COUNT (BEAKER) (test 0.05 K/ L 0.04-0.36 fonm=253) BASOPHILS ABSOLUTE COUNT (BEAKER) (test 0.02 K/ L 0.01-0.08 wwme=973) IMMATURE GRANULOCYTES-RELATIVE PERCENT (BEAKER) 0 % 0-1 (test jpoh=6158) URINE [id number] 09:49:00 Test Item Value Reference Range Comments CULTURE (BEAKER) (test hpcx=5787) Amikacin (test code=1) Susceptible 0-16 , Resistant <0 or >16 Aztreonam (test code=32) Susceptible 0-8 , Resistant <0 or >8 Cefepime (test code=51) Susceptible 0-8 , Resistant <0 or >8 Ceftazidime (test code=27) Susceptible 0-8 , Resistant <0 or >8 Ciprofloxacin (test code=7) Susceptible 0-1 , Resistant <0 or >1 Doripenem (test wpen=813) Susceptible 0-2 , Resistant <0 or >2 Gentamicin (test code=18) Susceptible 0-4 , Resistant <0 or >4 Imipenem (test code=19) Susceptible 0-2 , Resistant <0 or >2 Levofloxacin (test code=22) Susceptible 0-2 , Resistant <0 or >2 Meropenem (test code=34) Susceptible 0-2 , Resistant <0 or >2 Piperacillin (test code=24) Susceptible 0-16 , Resistant <0 or >16 Piperacillin + Tazobactam Susceptible 0-16 , (test code=29) Resistant <0 or >16 Tobramycin (test code=25) Susceptible 0-4 , Resistant <0 or >4 CULTURE (BEAKER) (test 80-89,000 col/mL xkip=1036) Pseudomonas aeruginosa >100,000 col/mL skin floraANG, NEPHROSTOMY TUBE CHANGE, [id number] 09:10: 00Reason for exam:->ABDOMINAL PAINFINAL REPORT Fluoroscopic guided bilateral nephrostomy tube exchange ClinicalHistory: Abdominal pain, bilateral percutaneous nephrostomy catheter. Modality: Sonography and fluoroscopy Refinery Operator Helper Cracking Unit: Star Brown MD. Polisher And Sander : None.. SEDATION: None. Estimated Blood Loss: Less than 5 cc. Specimen: None. Number spot images: 4 Fluoroscopy time: 2.6 min Technique: Informed written consent was obtained. Discussion [...] patient that were not prepped, and hand hygiene , mask, head covering,and sterile gown for performing radiologist and scrub technologist. Local anesthesia was achieved with 1% lidocaine. The existing left -sided nephroureteral catheter was injected demonstrating adequate positioning. The catheter was cut and a wire was advanced through the catheter into the bladder. A new 8.5 [place] by 24 cm nephroureteral catheter was placed. The wire was then removed, and the pigtail of the catheter was locked. Contrast injection confirmed positioning. The catheter was then secured onto the skin with 2-0 Prolene. Catheter was connected to bag drainage. Local anesthesia was achieved with 1% lidocaine. The existing right-sided percutaneous nephrostomy catheter was injected demonstrating adequate positioning. The catheter was cut and a wire was advanced through the catheter into the bladder. A new 10 [place] pigtail catheter was placed. The wire was then removed, and the pigtail ofthe catheter was locked. Contrast injection confirmed positioning. The catheter was then secured onto the skin with 2-0 Prolene. Catheter was connected to bag drainage. The patient tolerated the procedure well, without immediate complications. The patient's vital signs remained stable throughout theprocedure. Patient disposition: The patient was discharged from the department in stable condition. Impression: 1. Uncomplicated exchange of left 8.5 [place] by 24 cm nephroureteral catheter. 2. Uncomplicated exchange of right 10 [place] percutaneous nephrostomy catheter. Signed: Star Brown MDReportVerified Date/Time: 12/14/2017 09:10:40 Reading Location: [address] Body Reading Room Electronically signed by: STAR BROWN MD on 10/2018 09:10 AMANG, NEPHROSTOMY TUBE CHANGE, [id number] 09:10:00Reason for exam:->ABDOMINAL PAINFINAL REPORT Fluoroscopic guided bilateral nephrostomy tube exchange ClinicalHistory: Abdominal pain, bilateral percutaneous nephrostomy catheter. Modality: Sonography and fluoroscopy Refinery Operator Helper Cracking Unit: Star Brown MD. Polisher And Sander: None.. SEDATION: None. Estimated Blood Loss: Less than 5 cc. Specimen: None. Number spot images: 4 Fluoroscopy time: 2.6 min Technique: Informed written consent was obtained. Discussion [...] not prepped, and hand hygiene, mask, head covering,and sterile gown for performing radiologist and scrub technologist. Local anesthesia was achieved with 1% lidocaine. The existing left -sided nephroureteral catheter was injected demonstrating adequate positioning. The catheter was cut and a wire was advanced through the catheter into the bladder. A new 8.5 [place] by 24 cm nephroureteral catheter was placed. The wire was then removed, and the pigtail of the catheter was locked. Contrast injection confirmed positioning. The catheter was then secured onto the skin with 2-0 Prolene. Catheter was connected to bag drainage. Local anesthesia was achieved with 1% lidocaine. The existing right-sided percutaneous nephrostomy catheter was injected demonstrating adequate positioning. The catheter was cut and a wire was advanced through the catheter into the bladder. A new 10 [place] pigtail catheter was placed. The wire was then removed, and the pigtail ofthe catheter was locked. Contrast injection confirmed positioning. The catheter was then secured onto the skin with 2-0 Prolene. Catheter was connected to bag drainage. The patient tolerated the procedure well, without immediate complications. The patient's vital signs remained stable throughout theprocedure. Patient disposition: The patient was discharged from the department in stable condition. Impression: 1. Uncomplicated exchange of left 8.5 [place] by 24 cm nephroureteral catheter. 2. Uncomplicated exchange of right 10 [place] percutaneous nephrostomy catheter. Signed: Star Brown MDReportVerified Date/Time: 12/14/2017 09:10:40 Reading Location: [facility] C013Y CT Body Reading Room Electronically signed by: STAR BROWN MD on 10/2018 09:10 AMCBC W/PLT COUNT & AUTO [id number] 15:37:00 Test Item Value Reference Range Comments WHITE BLOOD CELL COUNT (BEAKER) (test selc=697) 11.1 K/ L 3.5-10.5 RED BLOOD CELL COUNT (BEAKER) (test uvku=554) 3.52 M/ L 3.93-5.22 HEMOGLOBIN (BEAKER) (test aukj=307) 11.2 GM/DL 11.2-15.7 HEMATOCRIT (BEAKER) (test uvgb=033) 35.3 % 34.1-44.9 MEAN CORPUSCULAR VOLUME (BEAKER) (test xpkr=637) 100.3 fL 79.4-94.8 MEAN CORPUSCULAR HEMOGLOBIN (BEAKER) (test 31.8 pg 25.6-32.2 stiq=560) MEAN CORPUSCULAR HEMOGLOBIN CONC (BEAKER) (test 31.7 GM/DL 32.2-35.5 wzhp=416) RED CELL DISTRIBUTION WIDTH (BEAKER) (test 13.2 % 11.7-14.4 jalo=343) PLATELET COUNT (BEAKER) (test ffob=897) 353 K/CU MM 150-450 MEAN PLATELET VOLUME (BEAKER) (test oblq=278) 10.6 fL 9.4-12.3 NUCLEATED RED BLOOD CELLS (BEAKER) (test 0 /100 WBC 0-0 vlny=359) NEUTROPHILS RELATIVE PERCENT (BEAKER) (test 83 % pyda=018) LYMPHOCYTES RELATIVE PERCENT (BEAKER) (test 8 % vqmt=462) MONOCYTES RELATIVE PERCENT (BEAKER) (test 8 % wnrm=860) EOSINOPHILS RELATIVE PERCENT (BEAKER) (test 1 % ykuy=030) BASOPHILS RELATIVE PERCENT (BEAKER) (test 0 % iqpg=414) NEUTROPHILS ABSOLUTE COUNT (BEAKER) (test 9.20 K/ L 1.56-6.13 izrf=169) LYMPHOCYTES ABSOLUTE COUNT (BEAKER) (test 0.87 K/ L 1.18-3.74 zimj=818) MONOCYTES ABSOLUTE COUNT (BEAKER) (test 0.91 K/ L 0.24-0.36 xcri=460) EOSINOPHILS ABSOLUTE COUNT (BEAKER) (test 0.07 K/ L 0.04-0.36 lozt=640) BASOPHILS ABSOLUTE COUNT (BEAKER) (test 0.03 K/ L 0.01-0.08 aarh=125) IMMATURE GRANULOCYTES-RELATIVE PERCENT (BEAKER) 1 % 0-1 (test ibsp=6105) BASIC METABOLIC [id number] 15:27:00 Test Item Value Reference Range Comments SODIUM (BEAKER) (test 132 meq/L 136-145 jwkl=992) POTASSIUM (BEAKER) (test 5.1 meq/L 3.5-5.1 piwp=541) CHLORIDE (BEAKER) (test 99 meq/L 98-107 kukt=148) CO2 (BEAKER) (test 24 meq/L 22-29 ghyk=668) BLOOD UREA NITROGEN 36 mg/dL 7-21 (BEAKER) (test prly=077) CREATININE (BEAKER) (test 1.25 mg/dL 0.57-1.25 lvtv=490) GLUCOSE RANDOM (BEAKER) 117 mg/dL 70-105 (test zkjv=182) CALCIUM (BEAKER) (test 9.4 mg/dL 8.4-10.2 sjai=352) EGFR (BEAKER) (test 42 mL/min/1.73 sq m ESTIMATED GFR IS NOT hfny=8167) ACCURATE CREATININE CLEARANCE IN PREDICTING GLOMERULAR FILTRATION RATE. ESTIMATED GFR IS NOT APPLICABLE FOR DIALYSIS PATIENTS. URINALYSIS W/ [id number] 15:22:00 Test Item Value Reference Range Comments COLOR (BEAKER) (test ktyx=715) Light Yellow CLARITY (BEAKER) (test ahzl=591) Hazy SPECIFIC GRAVITY UA (BEAKER) (test 1.007 1.001-1.035 artd=480) PH UA (BEAKER) (test rssl=510) 5.5 5.0-8.0 PROTEIN UA (BEAKER) (test bbik=092) 50 mg/dL Negative GLUCOSE UA (BEAKER) (test jnqj=829) Negative Negative KETONES UA (BEAKER) (test fubl=659) Negative Negative BILIRUBIN UA (BEAKER) (test fddq=178) Negative Negative BLOOD UA (BEAKER) (test ylcq=156) Small Negative NITRITE UA (BEAKER) (test kime=420) Positive Negative LEUKOCYTE ESTERASE UA (BEAKER) (test Large Negative rxtz=438) UROBILINOGEN UA (BEAKER) (test nlsi=853) 0.2 mg/dL 0.2-1.0 RBC UA (BEAKER) (test wtrb=568) 22 /HPF WBC UA (BEAKER) (test tcks=324) 24 /HPF MUCUS (BEAKER) (test zzeq=8962) Rare SQUAMOUS EPITHELIAL (BEAKER) (test < /HPF rxfu=496) HYALINE CASTS (BEAKER) (test bvyw=532) 2 /LPF SOURCE(BEAKER) (test cmgr=1250) Urine, Nephrostomy ANG, NEPHROSTOMY TUBE CHANGE, [id number] 18:37:00Reason for Exam:-> N13.30FINAL REPORT Procedure: Replacement of bilateral nephrostomy catheters, 11/19/2017 HISTORY: Partial obstructed nephrostomy catheters Anesthesia: 2% lidocaine Approach: Both flanksModality: Fluoroscopy, fluoroscopy time: 3.5 minutes, total dose: 47.2 mGy, reference air kerma method Sedation: None This procedure was performed after obtaining written informed consent using all elements maximal sterile barrier technique. The right nephrostomy catheter was evaluated. There was considerable hydronephrosis of right kidney with increased pressure noted related to partial obstruction of the catheter. The catheter was removed over guidewire and replaced with a fresh 8.5 [place] device with its tip in the renal pelvis. Approximately 80 cc of urine were removed. The left nephroureteral stent was removed over guidewire and a fresh 8.5 [place] by 24 cm nephroureteral stent placed with itstip in the bladder. Contrast was injected into each of the nephrostomy catheters confirming satisfactory positioning. CONCLUSION: Replacement of bilateral nephrostomy catheters. Signed: Tha Cheung MDReport Verified Date/Time: 11/19 18:37:20 Reading Location: [address] Body Reading Room ANG, NEPHROSTOMY TUBE CHANGE, [id number] 15:09:00Reason for exam:->FLANK PAINFINAL REPORT Exam: Right nephrostomy tube exchange Clinical History: Right nephrostomy tube occlusion Consent: Benefits and risks were explained to the patient who gave consent to the procedure. Sedation : The procedure was performed with conscious sedation. Continuous cardiorespiratory monitoring was performed by a registered nurse throughout the procedure. The total sedation time is 20 minutes. Fluoro Time: 1.0 Minutes Total Images: 2 Medication: Versed 1 mg IV, fentanyl 15 mcg IV Procedure: Sterile barrier technique was followed including cap, mask, sterile gown, sterile gloves, sterile sheet, hand hygiene and 2% chlorhexidine for cutaneous antisepsis. The right flank was prepped and draped in usual sterile fashion. 2% lidocaine was used as local anesthetic. Under fluoroscopic guidance, the indwelling right nephrostomy tube was exchanged for a new 8.5 [place] nephrostomy tube with the tip advanced to the renal pelvis. The position was confirmed by contrast injection. There is severe hydronephrosis and hydroureter. The catheter was secured using 2-0 silk and left to gravity drainage. Hemostasis was achieved. The patient tolerated the procedure well without any adverse reactions. She left the department in stable condition. Complication: None immediate Impression: 1. Right nephrostomy tube exchange as described. Signed: Manju Grove MDReport Verified Date/Time: 10/31/2017 15:09:40 Reading Location: [facility] P048 Angio Body Reading Room RAD, ABDOMEN, 2 OR MORE [id number] 14:41:00Reason for exam:->FLANK PAINFINAL REPORT Four views of the abdomen. IMPRESSION: None. IMPRESSION: Right nephrostomy and left nephroureterostomy catheters in position. Postsurgical changes are also seen in the lower lumbar spine and right hip. The bowel gas pattern is nonspecific. There are vascular calcifications. The osseous structures demonstrate degenerative change. No definite free intraperitoneal air. Signed: Haresh Juarez MDReport Verified Date/ Time: 10/31/2017 14:41:15 Reading Location: [facility] [id number] Consult Reading Room BASIC METABOLIC [id number] 12:03:00 Test Item Value Reference Range Comments SODIUM (BEAKER) (test 139 meq/L 136-145 dcpe=053) POTASSIUM (BEAKER) (test 4.8 meq/L 3.5-5.1 zspv=775) CHLORIDE (BEAKER) (test 106 meq/L 98-107 owpg=043) CO2 (BEAKER) (test 22 meq/L 22-29 ppnr=512) BLOOD UREA NITROGEN 34 mg/dL 7-21 (BEAKER) (test hyec=295) CREATININE (BEAKER) (test 1.03 mg/dL 0.57-1.25 wjdh=827) GLUCOSE RANDOM (BEAKER) 163 mg/dL 70-105 (test jhqf=058) CALCIUM (BEAKER) (test 9.5 mg/dL 8.4-10.2 afoz=035) EGFR (BEAKER) (test 52 mL/min/1.73 sq m ESTIMATED GFR IS NOT fgnu=7264) ACCURATE CREATININE CLEARANCE IN PREDICTING GLOMERULAR FILTRATION RATE. ESTIMATED GFR IS NOT APPLICABLE FOR DIALYSIS PATIENTS. CBC W/PLT COUNT & AUTO [id number] 11:30:00 Test Item Value Reference Range Comments WHITE BLOOD CELL COUNT (BEAKER) (test gcht=425) 9.1 K/ L 3.5-10.5 RED BLOOD CELL COUNT (BEAKER) (test mjde=445) 3.56 M/ L 3.93-5.22 HEMOGLOBIN (BEAKER) (test vtrh=956) 11.3 GM/DL 11.2-15.7 HEMATOCRIT (BEAKER) (test fyxx=777) 35.6 % 34.1-44.9 MEAN CORPUSCULAR VOLUME (BEAKER) (test loln=992) 100.0 fL 79.4-94.8 MEAN CORPUSCULAR HEMOGLOBIN (BEAKER) (test 31.7 pg 25.6-32.2 mpvp=476) MEAN CORPUSCULAR HEMOGLOBIN CONC (BEAKER) (test 31.7 GM/DL 32.2-35.5 lwas=488) RED CELL DISTRIBUTION WIDTH (BEAKER) (test 14.3 % 11.7-14.4 gwlf=559) PLATELET COUNT (BEAKER) (test xjsc=878) 323 K/CU MM 150-450 MEAN PLATELET VOLUME (BEAKER) (test nwro=171) 10.1 fL 9.4-12.3 NUCLEATED RED BLOOD CELLS (BEAKER) (test 0 /100 WBC 0-0 satu=630) NEUTROPHILS RELATIVE PERCENT (BEAKER) (test 86 % rico=540) LYMPHOCYTES RELATIVE PERCENT (BEAKER) (test 9 % pvsx=144) MONOCYTES RELATIVE PERCENT (BEAKER) (test 5 % wgna=727) EOSINOPHILS RELATIVE PERCENT (BEAKER) (test 0 % iwkw=366) BASOPHILS RELATIVE PERCENT (BEAKER) (test 0 % iemr=596) NEUTROPHILS ABSOLUTE COUNT (BEAKER) (test 7.75 K/ L 1.56-6.13 tjst=437) LYMPHOCYTES ABSOLUTE COUNT (BEAKER) (test 0.78 K/ L 1.18-3.74 vmsg=557) MONOCYTES ABSOLUTE COUNT (BEAKER) (test 0.47 K/ L 0.24-0.36 impp=001) EOSINOPHILS ABSOLUTE COUNT (BEAKER) (test 0.00 K/ L 0.04-0.36 krme=803) BASOPHILS ABSOLUTE COUNT (BEAKER) (test 0.02 K/ L 0.01-0.08 brxy=026) IMMATURE GRANULOCYTES-RELATIVE PERCENT (BEAKER) 0 % 0-1 (test tlcg=1254) [id number] 11:17:00 Test Item Value Reference Range Comments PROTIME (BEAKER) (test qcmk=632) 14.4 seconds 11.7-14.7 INR (BEAKER) (test ucss=224) 1.1 <=5.9 PARTIAL THROMBOPLASTIN TIME (BEAKER) (test 31.3 seconds 22.5-36.0 pbnp=038) RECOMMENDED COUMADIN/WARFARIN INR THERAPY RANGESSTANDARD DOSE: 2.0 - 3.0 Includes: PROPHYLAXIS forvenous thrombosis, systemic embolization; TREATMENT for venous thrombosis and/or pulmonary embolus.HIGH RISK: Target INR is 2.5-3.5 for patients with mechanical heart valves.BLOOD [id number] 11:00:00 Test Item Value Reference Range Comments CULTURE (BEAKER) (test nbpv=7306) No growth in 5 days BLOOD [id number] 11:00:00 Test Item Value Reference Range Comments CULTURE (BEAKER) (test lhyf=4216) No growth in 5 days URINE [id number] 10:04:00 Test Item Value Reference Range Comments CULTURE (BEAKER) (test udwd=2074) See comment >100,000 col/mL enteric organisms of >3 types including Pseudomonas species. No further workupperformed. Multiple organisms suggestive of colonization or contamination. Repeat collection recommended.URINE [id number] 13:38:00 Test Item Value Reference Range Comments CULTURE (BEAKER) (test kkzn=2043) >100,000 col/mL skin thomas POCT-GLUCOSE [id number] 12:45:00 Test Item Value Reference Range Comments POC-GLUCOSE METER (BEAKER) 120 mg/dL 70-[address] [facility] [address] [facility] (test secg=6424) [facility] [address] POCT-GLUCOSE [id number] 07:39:00 Test Item Value Reference Range Comments POC-GLUCOSE METER (BEAKER) 80 mg/dL 70-[address] [facility] [address] [facility] (test daqm=9589) [facility] [address] CBC W/PLT COUNT & AUTO [id number] 06:22:00 Test Item Value Reference Range Comments WHITE BLOOD CELL COUNT (BEAKER) (test sfdx=420) 12.7 K/ L 3.5-10.5 RED BLOOD CELL COUNT (BEAKER) (test sfup=716) 3.13 M/ L 3.93-5.22 HEMOGLOBIN (BEAKER) (test zwkw=942) 10.0 GM/DL 11.2-15.7 HEMATOCRIT (BEAKER) (test jybp=173) 31.2 % 34.1-44.9 MEAN CORPUSCULAR VOLUME (BEAKER) (test ubmb=532) 99.7 fL 79.4-94.8 MEAN CORPUSCULAR HEMOGLOBIN (BEAKER) (test 31.9 pg 25.6-32.2 hzfv=655) MEAN CORPUSCULAR HEMOGLOBIN CONC (BEAKER) (test 32.1 GM/DL 32.2-35.5 pwou=928) RED CELL DISTRIBUTION WIDTH (BEAKER) (test 14.4 % 11.7-14.4 srbj=553) PLATELET COUNT (BEAKER) (test iezx=096) 239 K/CU MM 150-450 MEAN PLATELET VOLUME (BEAKER) (test xadr=305) 10.5 fL 9.4-12.3 NUCLEATED RED BLOOD CELLS (BEAKER) (test 0 /100 WBC 0-0 ropg=848) NEUTROPHILS RELATIVE PERCENT (BEAKER) (test 81 % wmjd=840) LYMPHOCYTES RELATIVE PERCENT (BEAKER) (test 7 % jqqq=495) MONOCYTES RELATIVE PERCENT (BEAKER) (test 9 % avnr=434) EOSINOPHILS RELATIVE PERCENT (BEAKER) (test 1 % jlou=123) BASOPHILS RELATIVE PERCENT (BEAKER) (test 0 % qerx=345) NEUTROPHILS ABSOLUTE COUNT (BEAKER) (test 10.34 K/ L 1.56-6.13 hday=795) LYMPHOCYTES ABSOLUTE COUNT (BEAKER) (test 0.94 K/ L 1.18-3.74 aakc=562) MONOCYTES ABSOLUTE COUNT (BEAKER) (test 1.18 K/ L 0.24-0.36 izim=285) EOSINOPHILS ABSOLUTE COUNT (BEAKER) (test 0.11 K/ L 0.04-0.36 aadl=331) BASOPHILS ABSOLUTE COUNT (BEAKER) (test 0.03 K/ L 0.01-0.08 dcyd=888) IMMATURE GRANULOCYTES-RELATIVE PERCENT (BEAKER) 1 % 0-1 (test pugb=4188) [id number] 05:46:00 Test Item Value Reference Range Comments MAGNESIUM (BEAKER) (test oizp=507) 1.4 mg/dL 1.6-2.6 BASIC METABOLIC [id number] 05:46:00 Test Item Value Reference Range Comments SODIUM (BEAKER) (test 135 meq/L 136-145 wucj=867) POTASSIUM (BEAKER) (test 3.8 meq/L 3.5-5.1 rvxw=951) CHLORIDE (BEAKER) (test 104 meq/L 98-107 inhq=391) CO2 (BEAKER) (test 24 meq/L 22-29 blrm=660) BLOOD UREA NITROGEN 29 mg/dL 7-21 (BEAKER) (test tfdo=600) CREATININE (BEAKER) (test 1.00 mg/dL 0.57-1.25 dfzk=017) GLUCOSE RANDOM (BEAKER) 94 mg/dL 70-105 (test idbx=819) CALCIUM (BEAKER) (test 8.4 mg/dL 8.4-10.2 gqdn=975) EGFR (BEAKER) (test 54 mL/min/1.73 sq m ESTIMATED GFR IS NOT nxrh=3093) ACCURATE CREATININE CLEARANCE IN PREDICTING GLOMERULAR FILTRATION RATE. ESTIMATED GFR IS NOT APPLICABLE FOR DIALYSIS PATIENTS. POCT-GLUCOSE [id number] 21:07:00 Test Item Value Reference Range Comments POC-GLUCOSE METER (BEAKER) 170 mg/dL 70-[address] [facility] [address] [facility] (test nvcz=0006) [facility] [address] ANG, NEPHROSTOMY TUBE CHANGE, [id number] 20:09:00FINAL REPORT Right nephrostomy catheter exchange. History: Malfunctioning right nephrostomy catheter Modality: Fluoroscopy Sedation: Moderate sedation was administered. 0.5 mg of Versed and 25 mcg of fentanyl IV was used for moderate sedation monitored under my direction. Total intra- service time of sedation was 30 minutes.The patient's vital signs were monitored throughout the procedure and recorded in the patient's medical record by the nurse. Refinery Operator Helper Cracking Unit: Gerald Baeza MD. Polisher And Sander: MD Ulysses ( Fellow) Approach: Indwelling right nephrostomy catheter Estimated blood loss: < 5 cc. Specimen: None. Fluoroscopy Time: 0.6 min.Reference Air Kerma (Ka, r): 3.1 mGy. Technique: Informed written consent was obtained. Discussion of risks, benefits , and alternatives were made with the patient. [...] gown for performing radiologist and scrub technologist. 2% lidocaine was used for local anesthesia. Supply Analyst images were obtained demonstrating right nephrostomy catheter retracted to a renal calyx. The indwelling tube was cut and a 0.035 wire was advanced into the right renal pelvis. The existing catheter was removed over wire and a new 8.5 [place] percutaneous nephrostomy catheter was advanced over wire with pigtail formed within the renal pelvis. There was immediate return of urine. Contrast injection confirmed position. The catheter was fixed tothe skin with silk suture. A sterile dressing was applied. The patient tolerated procedure well without immediate complication. IMPRESSION: Successful right percutaneous nephrostomy catheter exchange. Signed: Gerald Baeza MDReport Verified Date/Time: 08/06/2017 20:09:03 Reading Location: [place] [address] Angio Body Reading Room Electronically signed by: GERALD BAEZA MD on 2016 08:09 PMURINALYSIS W/ [id number] 19:55:00 Test Item Value Reference Range Comments COLOR (BEAKER) (test gypa=766) Brittaney CLARITY (BEAKER) (test lcjk=924) Cloudy SPECIFIC GRAVITY UA (BEAKER) (test 1.016 1.001-1.035 etqm=795) PH UA (BEAKER) (test amgf=228) 8.0 5.0-8.0 PROTEIN UA (BEAKER) (test bwyx=256) 300 mg/dL Negative GLUCOSE UA (BEAKER) (test cojf=673) Negative Negative KETONES UA (BEAKER) (test hcmk=171) Negative Negative BILIRUBIN UA (BEAKER) (test sznf=165) Negative Negative BLOOD UA (BEAKER) (test wphw=585) Large Negative NITRITE UA (BEAKER) (test ukkr=131) Negative Negative LEUKOCYTE ESTERASE UA (BEAKER) (test Large Negative jsom=111) UROBILINOGEN UA (BEAKER) (test gueb=890) 0.2 mg/dL 0.2-1.0 RBC UA (BEAKER) (test bglf=817) > /HPF WBC UA (BEAKER) (test nqmc=755) > /HPF MUCUS (BEAKER) (test yqid=0932) Rare SOURCE(BEAKER) (test fckd=6513) Urine, Nephrostomy POCT-GLUCOSE [id number] 12:58:00 Test Item Value Reference Range Comments POC-GLUCOSE METER (BEAKER) 131 mg/dL 70-110 TESTED AT [address] (test kuav=2364) [facility] [address] HEMOGLOBIN [id number] 09:30:00 Test Item Value Reference Range Comments HEMOGLOBIN A1C (BEAKER) (test wiut=289) 5.7 % 4.3-6.1 POCT-GLUCOSE [id number] 07:08:00 Test Item Value Reference Range Comments POC-GLUCOSE METER (BEAKER) 137 mg/dL 70-110 TESTED AT [address] (test jcot=6339) [facility] [address] [id number] 04:00:00 Test Item Value Reference Range Comments PROTIME (BEAKER) (test tzuw=439) 13.4 seconds 11.7-14.7 INR (BEAKER) (test fuph=735) 1.0 <=5.9 PARTIAL THROMBOPLASTIN TIME (BEAKER) (test 30.1 seconds 22.5-36.0 esoj=394) RECOMMENDED COUMADIN/WARFARIN INR THERAPY RANGESSTANDARD DOSE: 2.0 - 3.0 Includes: PROPHYLAXIS forvenous thrombosis, systemic embolization; TREATMENT for venous thrombosis and/or pulmonary embolus.HIGH RISK: Target INR is 2.5-3.5 for patients with mechanical heart valves.U/S, RENAL, [id number] 03:58: 00Abdomen limited area? Add comment if clarification is needed.->Renal Reason for exam:->ABDOMINAL PAINFINAL REPORT U/S, RENAL, COMPLETE CLINICAL INDICATION: "ABDOMINAL PAIN" COMPARISON: None TECHNIQUE: The kidneys and urinary bladder were evaluated using real time melendez scale and color Doppler sonography. FINDINGS:Right kidney: There is severe hydronephrosis. A percutaneous nephrostomy tube is partially visualized within the renal pelvis. Left kidney: Normal renal morphology without hydronephrosis. A percutaneous nephrostomy tube is present in the left renal pelvis.Renal Vasculature: Doppler interrogation reveals preserved vascular flow in the main renal arteries and veins bilaterally. The visualized portions of the abdominal aorta and IVC are unremarkable. Urinary bladder: The bladder is decompressed and difficult to visualize. No nephroureterostomy tubing is visualized in the bladder. IMPRESSION: Severe right-sided hydronephrosis. Percutaneous nephrostomytube is positioned in the right renal pelvis however. Correlate with tube output from this side.Decompressed left renal collecting system with a percutaneous nephrostomy tube. No tubes are visualized in the bladder and if the patient has nephroureterostomy tubes, distal positioning cannot be confirmed. CT can be obtained if there is persistent clinical concern. Signed: Sarina Mclean MDReport Verified Date/Time: 08/06/2017 03:58: 39 Reading Location: [address] Consult Reading Room URINALYSIS W / [id number] 01:01:00 Test Item Value Reference Range Comments COLOR (BEAKER) (test ebtw=055) Light Yellow CLARITY (BEAKER) (test fuwd=108) Hazy SPECIFIC GRAVITY UA (BEAKER) (test fwjj=847) 1.011 1.001-1.035 PH UA (BEAKER) (test xost=880) 7.0 5.0-8.0 PROTEIN UA (BEAKER) (test bdku=102) 200 mg/dL Negative GLUCOSE UA (BEAKER) (test flzf=951) Negative Negative KETONES UA (BEAKER) (test vwru=846) Negative Negative BILIRUBIN UA (BEAKER) (test hmhb=069) Negative Negative BLOOD UA (BEAKER) (test nmsk=218) Moderate Negative NITRITE UA (BEAKER) (test ldyx=153) Negative Negative LEUKOCYTE ESTERASE UA (BEAKER) (test slwh=900) Moderate Negative UROBILINOGEN UA (BEAKER) (test qxex=722) 0.2 mg/dL 0.2-1.0 RBC UA (BEAKER) (test keak=078) 22 /HPF WBC UA (BEAKER) (test gbon=399) 26 /HPF BACTERIA (BEAKER) (test ddms=002) Occasional MUCUS (BEAKER) (test reko=4781) Rare SQUAMOUS EPITHELIAL (BEAKER) (test mddi=658) < /HPF HYALINE CASTS (BEAKER) (test uzqw=404) 6 /LPF TRIPLE PHOSPHATE CRYSTALS (BEAKER) (test Rare tpds=0313) AMORPHOUS CRYSTALS (BEAKER) (test spwb=2524) Rare SOURCE(BEAKER) (test yyyn=8838) Urine, Voided [id number] 23:21:00 Test Item Value Reference Range Comments LIPASE (BEAKER) (test yitc=355) 31 U/L 8-78 [id number] 23:21:00 Test Item Value Reference Range Comments AMYLASE (BEAKER) (test wkee=005) 71 U/L 25-125 BASIC METABOLIC [id number] 23:21:00 Test Item Value Reference Range Comments SODIUM (BEAKER) (test 139 meq/L 136-145 dufd=926) POTASSIUM (BEAKER) (test 3.8 meq/L 3.5-5.1 rsvl=335) CHLORIDE (BEAKER) (test 104 meq/L 98-107 ezye=141) CO2 (BEAKER) (test 22 meq/L 22-29 rovw=380) BLOOD UREA NITROGEN 29 mg/dL 7-21 (BEAKER) (test npba=736) CREATININE (BEAKER) (test 1.01 mg/dL 0.57-1.25 ffmr=655) GLUCOSE RANDOM (BEAKER) 104 mg/dL 70-105 (test tomg=372) CALCIUM (BEAKER) (test 9.2 mg/dL 8.4-10.2 qclu=696) EGFR (BEAKER) (test 54 mL/min/1.73 sq m ESTIMATED GFR IS NOT cvcw=5442) ACCURATE CREATININE CLEARANCE IN PREDICTING GLOMERULAR FILTRATION RATE. ESTIMATED GFR IS NOT APPLICABLE FOR DIALYSIS PATIENTS. HEPATIC FUNCTION [id number] 23:21:00 Test Item Value Reference Range Comments TOTAL PROTEIN (BEAKER) (test wvua=877) 7.3 gm/dL 6.0-8.3 ALBUMIN (BEAKER) (test ebcr=4100) 3.5 g/dL 3.5-5.0 BILIRUBIN TOTAL (BEAKER) (test qlqh=891) < mg/dL 0.2-1.2 BILIRUBIN DIRECT (BEAKER) (test eymc=611) 0.1 mg/dL 0.1-0.5 ALKALINE PHOSPHATASE (BEAKER) (test cxpx=540) 92 U/L 40-150 AST (SGOT) (BEAKER) (test lqfk=561) 17 U/L 5-34 ALT (SGPT) (BEAKER) (test wpxl=518) 12 U/L 6-55 CBC W/PLT COUNT & AUTO [id number] 23:15:00 Test Item Value Reference Range Comments WHITE BLOOD CELL COUNT (BEAKER) (test feqf=323) 13.0 K/ L 3.5-10.5 RED BLOOD CELL COUNT (BEAKER) (test lhlr=543) 3.64 M/ L 3.93-5.22 HEMOGLOBIN (BEAKER) (test ixrg=371) 11.6 GM/DL 11.2-15.7 HEMATOCRIT (BEAKER) (test bjwp=509) 36.0 % 34.1-44.9 MEAN CORPUSCULAR VOLUME (BEAKER) (test mjct=179) 98.9 fL 79.4-94.8 MEAN CORPUSCULAR HEMOGLOBIN (BEAKER) (test 31.9 pg 25.6-32.2 voyu=423) MEAN CORPUSCULAR HEMOGLOBIN CONC (BEAKER) (test 32.2 GM/DL 32.2-35.5 csaa=452) RED CELL DISTRIBUTION WIDTH (BEAKER) (test 13.7 % 11.7-14.4 svnr=155) PLATELET COUNT (BEAKER) (test ivxi=625) 284 K/CU MM 150-450 MEAN PLATELET VOLUME (BEAKER) (test cumj=982) 9.7 fL 9.4-12.3 NUCLEATED RED BLOOD CELLS (BEAKER) (test 0 /100 WBC 0-0 ywoc=377) NEUTROPHILS RELATIVE PERCENT (BEAKER) (test 80 % zudp=067) LYMPHOCYTES RELATIVE PERCENT (BEAKER) (test 10 % xyyo=493) MONOCYTES RELATIVE PERCENT (BEAKER) (test 7 % ecik=150) EOSINOPHILS RELATIVE PERCENT (BEAKER) (test 2 % fjmt=821) BASOPHILS RELATIVE PERCENT (BEAKER) (test 0 % aydp=098) NEUTROPHILS ABSOLUTE COUNT (BEAKER) (test 10.38 K/ L 1.56-6.13 gdui=259) LYMPHOCYTES ABSOLUTE COUNT (BEAKER) (test 1.27 K/ L 1.18-3.74 jiyh=699) MONOCYTES ABSOLUTE COUNT (BEAKER) (test 0.95 K/ L 0.24-0.36 cmlr=249) EOSINOPHILS ABSOLUTE COUNT (BEAKER) (test 0.26 K/ L 0.04-0.36 ixda=610) BASOPHILS ABSOLUTE COUNT (BEAKER) (test 0.05 K/ L 0.01-0.08 vbbg=048) IMMATURE GRANULOCYTES-RELATIVE PERCENT (BEAKER) 0 % 0-1 (test cuhx=8597) ANG, NEPHROSTOMY TUBE CHANGE, [id number] 11:25:00Reason for exam:->BACK PAINReason for exam:->FINAL REPORT Exchange of right percutaneous nephrostomy tube and left percutaneous nephroureteral stent. History: Back pain. Patient presented to the emergency department with a decreased drainage from the right nephrostomy catheter. Modality: Fluoroscopy Sedation: None Refinery Operator Helper Cracking Unit: Star Georges MD. Polisher And Sander: None. Approach: ] Is approximately catheter and left percutaneous nephroureteral stent Estimated blood loss: < 5 cc. Specimen: None. Fluoroscopy Time: 1.7 min.Reference Air Kerma (Ka, r): 20.9 mGy. Technique: Informed written consent was obtained. Discussion of risks, benefits, and alternatives were made with the patient. The patient expressed understanding and agreed to proceed. A universal timeout was performed prior tostarting the procedure. All elements maximal sterile barrier technique was utilized for this procedure, including utilization of sterile scrub solution for skin prep, a large sterile sheet to cover the areas of the patient that were not prepped, and hand hygiene, mask, head covering, and sterile gownfor performing radiologist and scrub technologist. Contrast was 1st injected through the patient's right nephrostomy tube which demonstrated that the pigtail was formed within the renal pelvis. The catheter was then severed and exchanged over guidewire for a new 8.5 [place] nephrostomy catheter. After the new catheter was placed contrast was injected which confirmed proper positioning. The catheter isin superior the patient's skin with 2-0 silk and connected to gravity drainage bag. The left nephroureteral stent was then exchanged over guidewire for a new 8.5 [place] by 22 cm nephroureteral stent. The distal pigtails formed in the bladder and the proximal pigtail was formed within the left renal pelvis. Contrast injection confirms proper positioning. The catheter secured the patient's skin with 2-0 silk and connected to gravity drainage bag. The patient tolerated the procedure well without evidence of immediate complication. Impression: Technically successful and uncomplicated exchange of right percutaneousnephrostomy catheter and left percutaneous left nephroureteral stent. Signed: Star Georges [facility] Verified Date/Time: 07/08/2017 11:25: 07 Reading Location: [place] [address] Angio Body Reading Room URINALYSIS W/ [id number] 09:16:00 Test Item Value Reference Range Comments COLOR (BEAKER) (test sucj=915) Yellow CLARITY (BEAKER) (test aqul=100) Hazy SPECIFIC GRAVITY UA (BEAKER) (test 1.018 1.001-1.035 viya=630) PH UA (BEAKER) (test eqbw=734) 7.5 5.0-8.0 PROTEIN UA (BEAKER) (test fjcl=379) 300 mg/dL Negative GLUCOSE UA (BEAKER) (test tcck=909) Negative Negative KETONES UA (BEAKER) (test hvlh=517) Negative Negative BILIRUBIN UA (BEAKER) (test pleq=914) Negative Negative BLOOD UA (BEAKER) (test caad=558) Small Negative NITRITE UA (BEAKER) (test btsq=489) Negative Negative LEUKOCYTE ESTERASE UA (BEAKER) (test Moderate Negative mrht=324) UROBILINOGEN UA (BEAKER) (test ofic=853) 0.2 mg/dL 0.2-1.0 RBC UA (BEAKER) (test syno=958) > /HPF WBC UA (BEAKER) (test pwyo=898) > /HPF SQUAMOUS EPITHELIAL (BEAKER) (test 1 /HPF qips=251) SOURCE(BEAKER) (test wldq=0309) Urine, Nephrostomy CBC W/PLT COUNT & AUTO [id number] 08:56:00 Test Item Value Reference Range Comments WHITE BLOOD CELL COUNT (BEAKER) (test kjid=317) 10.2 K/ L 3.5-10.5 RED BLOOD CELL COUNT (BEAKER) (test zvoq=213) 3.40 M/ L 3.93-5.22 HEMOGLOBIN (BEAKER) (test oatf=707) 10.9 GM/DL 11.2-15.7 HEMATOCRIT (BEAKER) (test lyvc=063) 33.7 % 34.1-44.9 MEAN CORPUSCULAR VOLUME (BEAKER) (test fmxx=464) 99.1 fL 79.4-94.8 MEAN CORPUSCULAR HEMOGLOBIN (BEAKER) (test 32.1 pg 25.6-32.2 wedp=594) MEAN CORPUSCULAR HEMOGLOBIN CONC (BEAKER) (test 32.3 GM/DL 32.2-35.5 cluq=832) RED CELL DISTRIBUTION WIDTH (BEAKER) (test 15.2 % 11.7-14.4 gcjb=349) PLATELET COUNT (BEAKER) (test ovgi=696) 317 K/CU MM 150-450 MEAN PLATELET VOLUME (BEAKER) (test wbrs=469) 9.8 fL 9.4-12.3 NUCLEATED RED BLOOD CELLS (BEAKER) (test 0 /100 WBC 0-0 nmvr=633) NEUTROPHILS RELATIVE PERCENT (BEAKER) (test 79 % ciml=338) LYMPHOCYTES RELATIVE PERCENT (BEAKER) (test 10 % dwfc=988) MONOCYTES RELATIVE PERCENT (BEAKER) (test 9 % lchn=124) EOSINOPHILS RELATIVE PERCENT (BEAKER) (test 2 % cguw=517) BASOPHILS RELATIVE PERCENT (BEAKER) (test 0 % jrrm=136) NEUTROPHILS ABSOLUTE COUNT (BEAKER) (test 8.07 K/ L 1.56-6.13 kuwr=704) LYMPHOCYTES ABSOLUTE COUNT (BEAKER) (test 1.06 K/ L 1.18-3.74 womx=753) MONOCYTES ABSOLUTE COUNT (BEAKER) (test 0.88 K/ L 0.24-0.36 dpfi=280) EOSINOPHILS ABSOLUTE COUNT (BEAKER) (test 0.16 K/ L 0.04-0.36 dmii=631) BASOPHILS ABSOLUTE COUNT (BEAKER) (test 0.02 K/ L 0.01-0.08 ymho=352) IMMATURE GRANULOCYTES-RELATIVE PERCENT (BEAKER) 1 % 0-1 (test iljl=5512) BASIC METABOLIC [id number] 08:48:00 Test Item Value Reference Range Comments SODIUM (BEAKER) (test 138 meq/L 136-145 hdxj=732) POTASSIUM (BEAKER) (test 4.6 meq/L 3.5-5.1 kibq=096) CHLORIDE (BEAKER) (test 104 meq/L 98-107 gfyb=746) CO2 (BEAKER) (test 23 meq/L 22-29 viox=679) BLOOD UREA NITROGEN 40 mg/dL 7-21 (BEAKER) (test ksma=269) CREATININE (BEAKER) (test 1.03 mg/dL 0.57-1.25 sfjb=178) GLUCOSE RANDOM (BEAKER) 140 mg/dL 70-105 (test dftv=107) CALCIUM (BEAKER) (test 9.1 mg/dL 8.4-10.2 ovfm=692) EGFR (BEAKER) (test 52 mL/min/1.73 sq m ESTIMATED GFR IS NOT yoon=5680) ACCURATE CREATININE CLEARANCE IN PREDICTING GLOMERULAR FILTRATION RATE. ESTIMATED GFR IS NOT APPLICABLE FOR DIALYSIS PATIENTS. URINE [id number] 08:09:00 Test Item Value Reference Range Comments CULTURE (BEAKER) (test STENOTROPHOMONAS >100,000 col/mL gjym=0083) MALTOPHILIA Stenotrophomonas maltophilia Amikacin (test code=1) Ampicillin (test code=26) Ampicillin + Sulbactam (test code=6) Aztreonam (test code=32) Cefazolin (test code=9) Cefepime (test code=51) Ceftazidime (test Susceptible 0-8 , code=27) Resistant <0 or >8 Ceftriaxone (test code=52) Ciprofloxacin (test code=7) Doripenem (test obhm=901) Ertapenem (test code=38) Gentamicin (test code=18) Imipenem (test code=19) Levofloxacin (test Susceptible 0-2 , code=22) Resistant <0 or >2 Meropenem (test code=34) Minocycline (test Susceptible 0-4 , code=35) Resistant <0 or >4 Nitrofurantoin (test code=23) Piperacillin (test code=24) Piperacillin + Tazobactam (test code=29) Tetracycline (test code=2) Ticarcillin + Clavulanic Acid (test code=80) Tigecycline (test jbep=191) Tobramycin (test code=25) Trimethoprim + Susceptible 0-40 Sulfamethoxazole (test , Resistant <0 or code=47) >40 CULTURE (BEAKER) (test COAGULASE NEGATIVE >100,000 col/mL gmab=7219) STAPHYLOCOCCUS Coagulase negative Staphylococcus Ampicillin (test kyzp=473) Ciprofloxacin (test code=72) Clindamycin (test code=10) Daptomycin (test code=59) Erythromycin (test code=4) Gentamicin (test fdmb=563) Gentamicin High Level Synergy (test xgzb=719) Levofloxacin (test code=22) Linezolid (test code=40) Moxifloxacin (test code=36) Nitrofurantoin (test code=23) Oxacillin (test code=14) Rifampin (test code=43) Streptomycin High Level Synergy (test wiho=348) Tetracycline (test code=2) Tigecycline (test vttp=6764) Trimethoprim + Sulfamethoxazole (test code=47) Vancomycin (test code=13) URINALYSIS W/ [id number] 10:28:00 Test Item Value Reference Range Comments COLOR (BEAKER) (test onbi=242) Yellow CLARITY (BEAKER) (test hwgu=732) Clear SPECIFIC GRAVITY UA (BEAKER) (test 1.014 1.001-1.035 byln=189) PH UA (BEAKER) (test idxc=426) 6.0 5.0-8.0 PROTEIN UA (BEAKER) (test acty=046) 50 mg/dL Negative GLUCOSE UA (BEAKER) (test vdon=026) Negative Negative KETONES UA (BEAKER) (test clcv=146) Negative Negative BILIRUBIN UA (BEAKER) (test ooyx=225) Negative Negative BLOOD UA (BEAKER) (test mjgd=576) Trace Negative NITRITE UA (BEAKER) (test ijyh=773) Positive Negative LEUKOCYTE ESTERASE UA (BEAKER) (test Large Negative yash=399) UROBILINOGEN UA (BEAKER) (test uabb=894) 0.2 mg/dL 0.2-1.0 RBC UA (BEAKER) (test trgf=948) 1 /HPF WBC UA (BEAKER) (test iclb=104) 15 /HPF BACTERIA (BEAKER) (test jikq=409) Rare HYALINE CASTS (BEAKER) (test zayn=595) 9 /LPF CRYSTALS, URINE (BEAKER) (test qdjm=3673) Rare SOURCE(BEAKER) (test gguy=0811) Urine, Nephrostomy BASIC METABOLIC [id number] 10:18:00 Test Item Value Reference Range Comments SODIUM (BEAKER) (test 136 meq/L 136-145 gnjb=485) POTASSIUM (BEAKER) (test 3.8 meq/L 3.5-5.1 hcqt=567) CHLORIDE (BEAKER) (test 100 meq/L 98-107 codo=905) CO2 (BEAKER) (test 24 meq/L 22-29 kheu=376) BLOOD UREA NITROGEN 26 mg/dL 7-21 (BEAKER) (test cewv=374) CREATININE (BEAKER) (test 0.89 mg/dL 0.57-1.25 qtnt=248) GLUCOSE RANDOM (BEAKER) 82 mg/dL 70-105 (test xcsf=638) CALCIUM (BEAKER) (test 9.3 mg/dL 8.4-10.2 jrha=250) EGFR (BEAKER) (test 62 mL/min/1.73 sq m ESTIMATED GFR IS NOT jbbr=9576) ACCURATE CREATININE CLEARANCE IN PREDICTING GLOMERULAR FILTRATION RATE. ESTIMATED GFR IS NOT APPLICABLE FOR DIALYSIS PATIENTS. CBC W/PLT COUNT & AUTO [id number] 10:12:00 Test Item Value Reference Range Comments WHITE BLOOD CELL COUNT (BEAKER) (test fnoi=281) 9.6 K/ L 4.0-10.0 RED BLOOD CELL COUNT (BEAKER) (test ydyr=890) 3.48 M/ L 4.00-5.00 HEMOGLOBIN (BEAKER) (test bpzz=631) 10.4 GM/DL 12.0-15.0 HEMATOCRIT (BEAKER) (test yjwb=470) 33.0 % 36.0-45.0 MEAN CORPUSCULAR VOLUME (BEAKER) (test mtuv=453) 94.8 fL 82.0-99.0 MEAN CORPUSCULAR HEMOGLOBIN (BEAKER) (test 29.9 pg 27.0-33.0 xhqy=082) MEAN CORPUSCULAR HEMOGLOBIN CONC (BEAKER) (test 31.5 GM/DL 32.0-36.0 wfck=050) RED CELL DISTRIBUTION WIDTH (BEAKER) (test 15.7 % 10.3-14.2 sjki=055) PLATELET COUNT (BEAKER) (test beem=353) 548 K/CU MM 150-430 MEAN PLATELET VOLUME (BEAKER) (test iluo=548) 6.2 fL 6.5-10.5 NUCLEATED RED BLOOD CELLS (BEAKER) (test 0 /100 WBC 0-0 pssb=517) NEUTROPHILS RELATIVE PERCENT (BEAKER) (test 70 % ulyq=696) LYMPHOCYTES RELATIVE PERCENT (BEAKER) (test 17 % lweg=821) MONOCYTES RELATIVE PERCENT (BEAKER) (test 12 % wgdj=315) EOSINOPHILS RELATIVE PERCENT (BEAKER) (test 2 % dplh=651) BASOPHILS RELATIVE PERCENT (BEAKER) (test 1 % dgna=346) NEUTROPHILS ABSOLUTE COUNT (BEAKER) (test 6.65 K/ L 1.80-8.00 febg=715) LYMPHOCYTES ABSOLUTE COUNT (BEAKER) (test 1.58 K/ L 1.48-4.50 psuq=370) MONOCYTES ABSOLUTE COUNT (BEAKER) (test 1.11 K/ L 0.00-1.30 fwco=863) EOSINOPHILS ABSOLUTE COUNT (BEAKER) (test 0.17 K/ L 0.00-0.50 kedn=483) BASOPHILS ABSOLUTE COUNT (BEAKER) (test 0.06 K/ L 0.00-0.20 abbw=349) 0.00PT/[id number] 10:12:00 Test Item Value Reference Range Comments PROTIME (BEAKER) (test bmuk=631) 13.4 seconds 11.7-14.7 INR (BEAKER) (test jngb=406) 1.0 <=5.9 PARTIAL THROMBOPLASTIN TIME (BEAKER) (test 36.3 seconds 22.5-36.0 gunp=502) RECOMMENDED COUMADIN/WARFARIN INR THERAPY RANGESSTANDARD DOSE: 2.0 - 3.0 Includes: PROPHYLAXIS forvenous thrombosis, systemic embolization; TREATMENT for venous thrombosis and/or pulmonary embolus.HIGH RISK: Target INR is 2.5-3.5 for patients with mechanical heart valves.POCT-GLUCOSE [id number] 13:22:00 Test Item Value Reference Range Comments POC-GLUCOSE METER (BEAKER) 136 mg/dL 70-110 TESTED AT [place] [id number] [facility] (test iaiv=2784) [place] [id number] POCT-GLUCOSE [id number] 07:56:00 Test Item Value Reference Range Comments POC-GLUCOSE METER (BEAKER) 185 mg/dL 70-110 TESTED AT [address] (test xhls=9230) [place] [id number] HEMOGLOBIN AND [id number] 06:36:00 Test Item Value Reference Range Comments HEMOGLOBIN (BEAKER) (test gmyz=091) 9.1 GM/DL 12.0-15.0 HEMATOCRIT (BEAKER) (test alqi=068) 29.3 % 36.0-45.0 BASIC METABOLIC [id number] 06:21:00 Test Item Value Reference Range Comments SODIUM (BEAKER) (test 142 meq/L 136-145 mvul=906) POTASSIUM (BEAKER) (test 3.8 meq/L 3.5-5.1 iaqt=874) CHLORIDE (BEAKER) (test 108 meq/L 98-107 dxaw=701) CO2 (BEAKER) (test 22 meq/L 22-29 pdbv=806) BLOOD UREA NITROGEN 30 mg/dL 7-21 (BEAKER) (test kbyg=700) CREATININE (BEAKER) (test 1.44 mg/dL 0.57-1.25 qldx=233) GLUCOSE RANDOM (BEAKER) 133 mg/dL 70-105 (test kzma=288) CALCIUM (BEAKER) (test 8.3 mg/dL 8.4-10.2 czxd=951) EGFR (BEAKER) (test 36 mL/min/1.73 sq m ESTIMATED GFR IS NOT pnni=4417) ACCURATE CREATININE CLEARANCE IN PREDICTING GLOMERULAR FILTRATION RATE. ESTIMATED GFR IS NOT APPLICABLE FOR DIALYSIS PATIENTS. [id number] 06:05:00 Test Item Value Reference Range Comments PROTIME (BEAKER) (test vdeu=618) 15.8 seconds 11.7-14.7 INR (BEAKER) (test uqtx=810) 1.3 <=5.9 PARTIAL THROMBOPLASTIN TIME (BEAKER) (test 39.7 seconds 22.5-36.0 duah=982) RECOMMENDED COUMADIN/WARFARIN INR THERAPY RANGESSTANDARD DOSE: 2.0 - 3.0 Includes: PROPHYLAXIS forvenous thrombosis, systemic embolization; TREATMENT for venous thrombosis and/or pulmonary embolus.HIGH RISK: Target INR is 2.5-3.5 for patients with mechanical heart valves.POCT-GLUCOSE [id number] 20:59:00 Test Item Value Reference Range Comments POC-GLUCOSE METER (BEAKER) 139 mg/dL 70-110 TESTED AT [address] (test nglo=8301) [place] [address] POCT-GLUCOSE [id number] 17:25:00 Test Item Value Reference Range Comments POC-GLUCOSE METER (BEAKER) 213 mg/dL 70-110 TESTED AT [address] (test zaal=7183) [place] [address] BASIC METABOLIC [id number] 15:09:00 Test Item Value Reference Range Comments SODIUM (BEAKER) (test 140 meq/L 136-145 cmza=333) POTASSIUM (BEAKER) (test 3.8 meq/L 3.5-5.1 ahxq=711) CHLORIDE (BEAKER) (test 106 meq/L 98-107 qdvy=689) CO2 (BEAKER) (test 24 meq/L 22-29 evkb=439) BLOOD UREA NITROGEN 35 mg/dL 7-21 (BEAKER) (test psld=716) CREATININE (BEAKER) (test 1.64 mg/dL 0.57-1.25 jhpa=171) GLUCOSE RANDOM (BEAKER) 181 mg/dL 70-105 (test uqrs=357) CALCIUM (BEAKER) (test 8.2 mg/dL 8.4-10.2 buyq=665) EGFR (BEAKER) (test 31 mL/min/1.73 sq m ESTIMATED GFR IS NOT cajm=2533) ACCURATE CREATININE CLEARANCE IN PREDICTING GLOMERULAR FILTRATION RATE. ESTIMATED GFR IS NOT APPLICABLE FOR DIALYSIS PATIENTS. PROTHROMBIN [id number] 14:53:00 Test Item Value Reference Range Comments PROTIME (BEAKER) (test anhv=466) 15.6 seconds 11.7-14.7 INR (BEAKER) (test scje=663) 1.3 <=5.9 RECOMMENDED COUMADIN/WARFARIN INR THERAPY RANGESSTANDARD DOSE: 2.0 - 3.0 Includes: PROPHYLAXIS forvenous thrombosis, systemic embolization; TREATMENT for venous thrombosis and/or pulmonary embolus.HIGH RISK: Target INR is 2.5-3.5 for patients with mechanical heart valves.HEMOGLOBIN AND [id number] 14 :50:00 Test Item Value Reference Range Comments HEMOGLOBIN (BEAKER) (test jogh=382) 10.4 GM/DL 12.0-15.0 HEMATOCRIT (BEAKER) (test wmry=095) 32.6 % 36.0-45.0 CBC W/PLT COUNT & AUTO [id number] 12:10:00 Test Item Value Reference Range Comments WHITE BLOOD CELL COUNT (BEAKER) (test komq=371) 11.7 K/ L 4.0-10.0 RED BLOOD CELL COUNT (BEAKER) (test leyx=382) 3.31 M/ L 4.00-5.00 HEMOGLOBIN (BEAKER) (test qthx=898) 9.9 GM/DL 12.0-15.0 HEMATOCRIT (BEAKER) (test xxbc=320) 31.3 % 36.0-45.0 MEAN CORPUSCULAR VOLUME (BEAKER) (test biyv=643) 94.5 fL 82.0-99.0 MEAN CORPUSCULAR HEMOGLOBIN (BEAKER) (test 30.0 pg 27.0-33.0 vtiu=282) MEAN CORPUSCULAR HEMOGLOBIN CONC (BEAKER) (test 31.7 GM/DL 32.0-36.0 onxj=517) RED CELL DISTRIBUTION WIDTH (BEAKER) (test 14.6 % 10.3-14.2 fref=155) PLATELET COUNT (BEAKER) (test slfq=068) 393 K/CU MM 150-430 MEAN PLATELET VOLUME (BEAKER) (test dnjw=445) 7.4 fL 6.5-10.5 NUCLEATED RED BLOOD CELLS (BEAKER) (test 0 /100 WBC 0-0 bkfj=336) NEUTROPHILS RELATIVE PERCENT (BEAKER) (test 76 % lbnz=628) LYMPHOCYTES RELATIVE PERCENT (BEAKER) (test 11 % apao=826) MONOCYTES RELATIVE PERCENT (BEAKER) (test 12 % chtu=700) EOSINOPHILS RELATIVE PERCENT (BEAKER) (test 2 % idex=662) BASOPHILS RELATIVE PERCENT (BEAKER) (test 0 % auah=924) NEUTROPHILS ABSOLUTE COUNT (BEAKER) (test 8.83 K/ L 1.80-8.00 fwph=938) LYMPHOCYTES ABSOLUTE COUNT (BEAKER) (test 1.23 K/ L 1.48-4.50 nvtb=437) MONOCYTES ABSOLUTE COUNT (BEAKER) (test 1.42 K/ L 0.00-1.30 wvan=551) EOSINOPHILS ABSOLUTE COUNT (BEAKER) (test 0.19 K/ L 0.00-0.50 hzmv=554) BASOPHILS ABSOLUTE COUNT (BEAKER) (test 0.00 K/ L 0.00-0.20 kpvf=705) [id number] 11:59:00 Test Item Value Reference Range Comments SODIUM (BEAKER) (test fkzd=893) 141 meq/L 136-145 POTASSIUM (BEAKER) (test ujfi=653) 3.7 meq/L 3.5-5.1 CHLORIDE (BEAKER) (test pvvk=379) 107 meq/L 98-107 CO2 (BEAKER) (test dylj=307) 24 meq/L 22-29 BUN AND [id number] 11:53:00 Test Item Value Reference Range Comments BLOOD UREA NITROGEN 38 mg/dL 7-21 (BEAKER) (test xyoa=684) CREATININE (BEAKER) (test 1.61 mg/dL 0.57-1.25 rnpk=623) EGFR (BEAKER) (test 31 mL/min/1.73 sq m ESTIMATED GFR IS NOT hbgb=7764) ACCURATE CREATININE CLEARANCE IN PREDICTING GLOMERULAR FILTRATION RATE. ESTIMATED GFR IS NOT APPLICABLE FOR DIALYSIS PATIENTS. POCT-GLUCOSE [id number] 10:51:00 Test Item Value Reference Range Comments POC-GLUCOSE METER (BEAKER) 52 mg/dL 70-110 Notified TASHA GRECO/TESTED AT [facility] (test mwmg=1640) [address] [facility] [place] [address]
[2018-03-12] MEDS ORDERED: CEFTRIAXONE/SWI 1gm 0 GM/0 ML SYR ONE (01:32)
[2018-03-12] MEDS ORDERED: CEFTRIAXONE 1000 MG/VIAL ONE (01:43)
--- NOTE | 2018-03-12 01:43 | ER ---
Nurse's Notes [facility] Name: Mary Archuleta Age: 77 yrs Sex: Female : 1940 Arrival Date: 03/12/2018 Time: 00:00 Bed 15 Private MD: Diagnosis: Malfunction of Right Urostomy Tube;Urinary tract infection, site not specified Presentation: 03/12 00:01 Presenting complaint: EMS states: "Patient c/o Right Flank pain that radiates to her bs1 right/left upper/lower abdomen, denies any nausea/vomiting, has Bilateral Nephrostomy tubes, vitals 162/78, 70 heart rate, 98% room air.". Transition of care: patient was not received from another setting of care. Onset of symptoms was March 11, 2018. Initial Sepsis Screen: Does the patient meet any 2 criteria? No. Patient's initial sepsis screen is negative. Does the patient have a suspected source of infection? No. Patient's initial sepsis screen is negative. Care prior to arrival: None. 00:01 Method Of Arrival: EMS: [facility] bs1 00:01 Acuity: SILVERIO 3 bs1 Historical: - Allergies: 00:15 Lisinopril; bs1 - Home Meds: 00:15 omeprazole 40 mg Oral cpDR 1 cap once daily [Active]; pravastatin 20 mg Oral tab 1 tab bs1 once daily [Active]; fluoxetine 10 mg Oral cap 1 caps once daily [Active]; metformin 500 mg Oral Tb24 1 tab once daily [Active]; hydrocodone-acetaminophen 10-325 mg Oral tab 2 tab twice a day [Active]; Furosemide Oral [Active]; vit d3 [Active]; metoprolol succinate oral oral [Active]; Potassium Chloride Oral [Active]; - PMHx: 00:15 Diabetes - NIDDM; Hyperlipidemia; Hypertension; Hypothyroidism; breast ca; cervical bs1 cancer; - PSHx: 00:15 back sx; Lumpectomy; Hysterectomy; Knee surgery; hip sx; bs1 00:16 nephrostomy tubes; bs1 - Immunization history:: Adult Immunizations up to date. - Social history:: Smoking status: Patient/guardian denies using tobacco. Screenin:10 Abuse screen: Denies threats or abuse. Denies injuries from another. Nutritional bs1 screening: No deficits noted. Tuberculosis screening: No symptoms or risk factors identified. 02:40 Fall Risk None identified. bs1 Assessment: 00:05 General: Appears uncomfortable, Behavior is calm, cooperative, appropriate for age. bs1 00:05 Pain: Complains of pain in right flank Pain radiates to right/left upper/lower abdomen. bs1 Neuro: Level of Consciousness is awake, alert, obeys commands, Oriented to person, place, time, situation, Appropriate for age Activity Director are equal bilaterally. Cardiovascular: Denies chest pain, palpitations, shortness of breath, Heart tones S1 S2 present Capillary refill < 3 seconds Patient's skin is warm and dry. Cardiovascular: Edema is 2+ to bilateral lower ext pitting to bilateral lower leg. Respiratory: Airway is patent Trachea midline Respiratory effort is even, unlabored, Respiratory pattern is regular, symmetrical, Breath sounds are clear bilaterally. GI: Abdomen is round non-distended, Bowel sounds present X 4 quads. Abdomen is tender to palpation X 4 quads. Reports lower abdominal pain, upper abdominal pain, Patient currently denies nausea, vomiting. : bilateral nephrostomy tubes Urine is cloudy, Reports right nephrostomy being blocked, needs to be flushed. EENT: No deficits noted. No signs and/or symptoms were reported regarding the EENT system. Derm: Skin is intact, Skin is pink, warm \\T\\ dry. Musculoskeletal: Circulation, motion, and sensation intact. Capillary refill < 3 seconds, Range of motion: intact in all extremities, Swelling present in bilateral lower ext. 00:40 Reassessment: Flushed Patients right nephrostomy tube with 10cc NS using sterile bs1 technique. Flushed easily, patient tolerated. Fluid noted to be draining in urine bag. 01:30 Reassessment: Patient and/or family updated on plan of care and expected duration. Pain bs1 level reassessed. Patient is alert, oriented x 3, equal unlabored respirations, skin warm/dry/pink. Patient states feeling better. 02:11 Reassessment: Nurse called for a taxi [phone]. bs1 Vital Signs: 00:07 BP 174 / 94; Pulse 70; Resp 16; Temp 98.2(O); Pulse Ox 99% on R/A; Weight 58.97 kg; bs1 Height 5 ft. 2 in. (157.48 cm); Pain 8/10; 01:00 BP 123 / 83; Pulse 65; Resp 14; Temp 98.0(O); Pulse Ox 100% ; Pain 0/10; bs1 02:00 BP 141 / 66; Pulse 61; Resp 16; Temp 97.8(O); Pulse Ox 99% on R/A; Pain 0/10; bs1 00:07 Body Mass Index 23.78 (58.97 kg, 157.48 cm) bs1 ED Course: 00:00 Patient arrived in ED. jd3 00:01 Ej Fischer PA is PHCP. cp 00:01 Tejas Matamoros MD is Attending Physician. cp 00:01 Emmanuelle Colon, TASHA is Primary Nurse. bs1 00:05 Triage completed. bs1 00:16 Patient has correct armband on for positive identification. Bed in low position. Call bs1 light in reach. Side rails up X 1. Pulse ox on. NIBP on. Warm blanket given. 00:17 Arm band placed on right wrist. bs1 02:40 No provider procedures requiring assistance completed. Patient did not have IV access bs1 during this emergency room visit. Administered Medications: 01:50 Drug: Rocephin (cefTRIAXone) 1 grams Route: IM; Site: right gluteus; bs1 02:45 Follow up: Response: No adverse reaction bs1 Outcome: 01:42 Discharge ordered by MD. cp 02:40 Discharged to taxi called bs1 02:40 Condition: stable 02:40 Discharge instructions given to patient, Instructed on discharge instructions, follow up and referral plans. medication usage, Demonstrated understanding of instructions, follow-up care, medications, Prescriptions given X 1. 02:42 Patient left the ED. bs1 Addendum: 03/15/2018 15:33 Addendum: Culture Results: Positive urine culture. Phone call Attempt #1 at 0934 a a5 Attempt #2 at 1532. 15:37 Addendum: Culture Results: Positive urine culture. Pt called back and notified of need a a5 to follow-up with PCP per Ciera Garcia NP, pt verbalized understanding. Signatures: Julissa Patten RN RN aa5 Ej Fischer PA PA cp Davies, Jonathon, RN RN jEmmanuelle Price RN RN bs1 Corrections: (The following items were deleted from the chart) 03/12 00:06 00:01 Presenting complaint: EMS states: "Patient c/o Right Flank pain that radiates to bs1 her right/left upper/lower abdomen, denies any nausea/vomiting, has Bilateral Nephrostomy tubes." bs1
--- NOTE | 2018-03-12 01:43 | EDPHYS ---
Physician Documentation [facility] Name: Mary Archuleta Age: 77 yrs Sex: Female : 1940 Arrival Date: 03/12/2018 Time: 00:00 Bed 15 Private MD: ED Physician Tejas Matamoros HPI: 03/12 01:00 This 77 yrs old Female presents to ER via EMS with complaints of right flank cp pain. 01:00 The patient complains of pain in the right mid back. The pain radiates to the abdomen. cp Onset: The symptoms/episode began/occurred yesterday. Associated signs and symptoms: Pertinent positives: right urostomy tube not draining, Pertinent negatives: diarrhea, fever, nausea, vomiting. Historical: - Allergies: 00:15 Lisinopril; bs1 - Home Meds: 00:15 omeprazole 40 mg Oral cpDR 1 cap once daily [Active]; pravastatin 20 mg Oral tab 1 tab bs1 once daily [Active]; fluoxetine 10 mg Oral cap 1 caps once daily [Active]; metformin 500 mg Oral Tb24 1 tab once daily [Active]; hydrocodone-acetaminophen 10-325 mg Oral tab 2 tab twice a day [Active]; Furosemide Oral [Active]; vit d3 [Active]; metoprolol succinate oral oral [Active]; Potassium Chloride Oral [Active]; - PMHx: 00:15 Diabetes - NIDDM; Hyperlipidemia; Hypertension; Hypothyroidism; breast ca; cervical bs1 cancer; - PSHx: 00:15 back sx; Lumpectomy; Hysterectomy; Knee surgery; hip sx; bs1 00:16 nephrostomy tubes; bs1 - Immunization history:: Adult Immunizations up to date. - Social history:: Smoking status: Patient/guardian denies using tobacco. ROS: 01:05 Constitutional: Negative for body aches, chills, fever, poor PO intake. cp 01:05 Eyes: Negative for injury, pain, redness, and discharge. cp 01:05 ENT: Negative for drainage from ear(s), ear pain, sore throat, difficulty swallowing, difficulty handling secretions. 01:05 Cardiovascular: Negative for chest pain, edema, palpitations. 01:05 Respiratory: Negative for cough, shortness of breath, wheezing. 01:05 Abdomen/GI: Negative for abdominal pain, nausea, vomiting, and diarrhea, black/tarry stool, rectal bleeding. 01:05 Back: Positive for flank pain, on the right, Negative for injury or acute deformity. 01:05 : Positive for bilateral urostomy tubes. 01:05 Skin: Negative for cellulitis, rash. 01:05 Neuro: Negative for altered mental status, headache, weakness. 01:05 All other systems are negative. Exam: 01:12 Constitutional: The patient appears in no acute distress, alert, awake, cp non-diaphoretic, non-toxic, well developed, well nourished. 01:12 Head/Face: Normocephalic, atraumatic. cp 01:12 Eyes: Periorbital structures: appear normal, Pupils: equal, round, and reactive to cp light and accomodation, Extraocular movements: intact throughout, Conjunctiva: normal, no exudate, no injection, Sclera: no appreciated abnormality, Lids and lashes: appear normal, bilaterally. 01:12 ENT: External ear(s): are unremarkable, Nose: is normal, Mouth: Lips: moist, Oral mucosa: pink and intact, moist, Posterior pharynx: is normal, airway is patent, no erythema, no exudate. 01:12 Neck: ROM/movement: is normal, is supple, without pain, no range of motions limitations, no nuchal rigidity. 01:12 Chest/axilla: Inspection: normal, Palpation: is normal, no crepitus, no tenderness. 01:12 Cardiovascular: Rate: normal, Rhythm: regular. 01:12 Respiratory: the patient does not display signs of respiratory distress, Respirations: cp normal, no use of accessory muscles, no retractions, no splinting, no tachypnea, labored breathing, is not present, Breath sounds: are clear throughout, no decreased breath sounds, no stridor, no wheezing. 01:12 Abdomen/GI: Inspection: abdomen appears normal, Bowel sounds: active, all quadrants, Palpation: abdomen is soft and non-tender, in all quadrants, rebound tenderness, is not appreciated, voluntary guarding, is not appreciated, involuntary guarding, is not appreciated. 01:12 Back: ROM is normal, CVA tenderness, that is moderate, is noted on the right, noted bilateral urostomy tubes in place. 01:12 Skin: cellulitis, is not appreciated, no rash present. 01:12 Neuro: Orientation: to person, place \T\ time. Mentation: is normal. Vital Signs: 00:07 BP 174 / 94; Pulse 70; Resp 16; Temp 98.2(O); Pulse Ox 99% on R/A; Weight 58.97 kg; bs1 Height 5 ft. 2 in. (157.48 cm); Pain 8/10; 01:00 BP 123 / 83; Pulse 65; Resp 14; Temp 98.0(O); Pulse Ox 100% ; Pain 0/10; bs1 02:00 BP 141 / 66; Pulse 61; Resp 16; Temp 97.8(O); Pulse Ox 99% on R/A; Pain 0/10; bs1 00:07 Body Mass Index 23.78 (58.97 kg, 157.48 cm) bs1 MDM: 00:02 Patient medically screened. cp 00:30 Differential diagnosis: nephrolithiasis, pyelonephritis, UTI, sepsis, obstructed cp urostomy tube. 01:40 Data reviewed: vital signs, nurses notes, lab test result(s), and as a result, I will cp discharge patient. 01:40 Counseling: I had a detailed discussion with the patient and/or guardian regarding: the cp historical points, exam findings, and any diagnostic results supporting the discharge/admit diagnosis, to return to the emergency department if symptoms worsen or persist or if there are any questions or concerns that arise at home. ED course: VSS. Right urostomy tube flushed by nursing staff and unobstructed. Will discharge to home for continued monitoring. 03/12 00:02 Order name: Urine Microscopic Only cp 03/12 00:23 Order name: Urine Dipstick--Ancillary (enter results) em1 03/12 00:02 Order name: Urine Dipstick-Ancillary (obtain specimen); Complete Time: 00:18 cp 03/12 00:02 Order name: Misc. Order: flush right urostomy tube; Complete Time: 01:00 cp 03/12 02:18 Order name: Urine Culture EDMS Administered Medications: 01:50 Drug: Rocephin (cefTRIAXone) 1 grams Route: IM; Site: right gluteus; bs1 02:45 Follow up: Response: No adverse reaction bs1 Disposition: 04:46 Co-signature as Attending Physician, Tejas Matamoros MD. rn Disposition: 03/12/18 01:42 Discharged to Home. Impression: Malfunction of Right Urostomy Tube, Urinary tract infection, site not specified. - Condition is Stable. - Discharge Instructions: Urinary Tract Infection. - Prescriptions for cefpodoxime 100 mg Oral Tablet - take 2 tablet by ORAL route every 12 hours for 10 days take with food; 40 tablet. - Medication Reconciliation Form, Thank You Letter, Antibiotic Education, Prescription Opioid Use form. - Follow up: Private Physician; When: 1 - 2 days; Reason: Recheck today's complaints. - Problem is new. - Symptoms have improved. Signatures: Dispatcher [employer] EDMS Tejas Matamoros MD MD rn Ej Fischer PA PA cp Salazar, Brittany RN RN bs1 Corrections: (The following items were deleted from the chart) 01:31 01:27 Constitutional: Negative for cp cp 01:47 01:42 03/12/2018 01:42 Discharged to Home. Impression: Malfunction of Right Urostomy cp Tube. Condition is Stable. Prescriptions for cefpodoxime 100 mg Oral Tablet - take 2 tablet by ORAL route every 12 hours for 10 days take with food; 40 tablet. and Forms are Medication Reconciliation Form, Thank You Letter, Antibiotic Education, Prescription Opioid Use. Follow up: Private Physician; When: 1 - 2 days; Reason: Recheck today's complaints. Problem is new. Symptoms have improved. cp 02:42 01:47 03/12/2018 01:42 Discharged to Home. Impression: Malfunction of Right Urostomy bs1 Tube; Urinary tract infection, site not specified. Condition is Stable. Discharge Instructions: Urinary Tract Infection. Prescriptions for cefpodoxime 100 mg Oral Tablet - take 2 tablet by ORAL route every 12 hours for 10 days take with food; 40 tablet. and Forms are Medication Reconciliation Form, Thank You Letter, Antibiotic Education, Prescription Opioid Use. Follow up: Private Physician; When: 1 - 2 days; Reason: Recheck today's complaints. Problem is new. Symptoms have improved. cp
[2018-03-12 02:17] LABS: Urine Amorphous Sediment 3+ /HPF (NONE SEEN); Urine Bacteria 20-50 /HPF (<20); Urine Culture Reflex Order REFLEXED; Urine Yeast FEW (NONE SEEN)
[2018-03-12 02:18] LABS: Urine Blood 2+ (NEG); Urine Glucose NEGATIVE (NEG); Urine Protein 3+ (NEG); Urine Specific Gravity 1.025 (1.005-1.030)
[2018-03-12 02:54] VITALS: BP 141/66; TEMP 97.8; O2SAT 99
== END 2018-03-12 02:42 | disposition home or self-care (01) ==
LOC: ER 23:50
DX: N39.0 Urinary tract infection, site not specified (principal); T83.098A Other mechanical complication of other urinary catheter, initial encounter; I10 Essential (primary) hypertension; E11.9 Type 2 diabetes mellitus without complications; E03.9 Hypothyroidism, unspecified; Z85.3 Personal history of malignant neoplasm of breast; Z85.41 Personal history of malignant neoplasm of cervix uteri; Z88.8 Allergy status to other drugs, medicaments and biological substances
CPT/HCPCS: 81003; 81015; 87077; 87086; 87088; 87186; 96372; 99284; J0696

== ENCOUNTER 2018-07-09 10:40 | Inpatient (IN) | payer OTHER, BC ==
--- OUTSIDE RECORDS SUMMARY | 2018-07-09 10:44 | XMS REPORT | Clinical Summary ---
:1940 Author Organization [facility] Address [address] [place] [address] Phone Care Team Providers Name Role Phone Unavailable Primary Care Provider Unavailable Allergies Active Allergy Reactions Severity Noted Date Comments Lisinopril Other (See Comments) 03/19/2017 Dry cough Current Medications Prescription Sig. Disp. Refills Start Date End Date Status CHOLECALCIFEROL, Take by Active VITAMIN D3, (VITAMIN mouth. D3 ORAL) HYDROcodone-acetamino Take 2 Active phen (NORCO 10-325) tablets by 10-325 mg per tablet mouth every 6 (six) hours as needed for Pain . fLUoxetine (PROZAC) Take 10 mg by Active 10 MG capsule mouth daily. pravastatin Take 20 mg by Active (PRAVACHOL) 20 MG mouth tablet nightly. furosemide (LASIX) 20 Take 20 mg by Active MG tablet mouth 2 (two) times daily. potassium chloride Take 20 mEq Active (KLOR-CON) 20 mEq by mouth 2 packet (two) times daily. metoprolol Take 25 mg by Active (TOPROL-XL) 25 MG 24 mouth daily. hr tablet omeprazole (PRILOSEC) Take 40 mg by Active 40 MG capsule mouth daily. levoFLOXacin Take 500 mg Discontinued (LEVAQUIN) 500 MG by mouth 7 tablet daily. levothyroxine Take 50 mcg Discontinued (SYNTHROID, by mouth 8 LEVOTHROID) 50 MCG Every morning tablet on an empty stomach. anastrozole Take 1 mg by Discontinued (ARIMIDEX) 1 mg mouth daily. 8 tablet cyclobenzaprine Take 10 mg by Discontinued (FLEXERIL) 5 MG mouth 3 8 tablet (three) times daily as needed for Muscle spasms . cephalexin (KEFLEX) Take 1 20 capsule 0 07/07/2017 500 MG capsule capsule (500 7 mg total) by mouth 4 (four) times daily for 5 days. cefdinir (OMNICEF) Take 1 10 capsule 0 08/07/2017 300 MG capsule capsule (300 7 mg total) by mouth 2 (two) times daily for 5 days. acetaminophen-codeine Take 1 tablet 15 tablet 0 10/31/2017 Discontinued (TYLENOL #3) 300-30 by mouth 8 mg per tablet every 6 (six) hours as needed for Pain (WARNING CAUSES SEDATION) for up to 15 doses. Max Daily Amount: 4 tablets levoFLOXacin Take 1 tablet 7 tablet 0 12/10/2017 (LEVAQUIN) 750 MG (750 mg 8 tablet total) by mouth daily for 7 days. ciprofloxacin HCl Take 1 tablet 20 tablet 0 03/12/2018 (CIPRO) 500 MG tablet (500 mg 8 total) by mouth 2 (two) times daily for 7 days. cefpodoxime (VANTIN) Take 1 tablet 20 tablet 0 05/06/2018 200 MG tablet (200 mg 8 total) by mouth 2 (two) times daily for 10 days. Active Problems Problem Noted Date Hydronephrosis 08/06/2017 Nephrostomy tube displaced (HCC) 08/06/2017 Ureteral stricture 03/23/2017 History of cervical cancer 11/02/1987 Encounters Date Type Specialty Care Team Description 05/06/2018 Emergency Emergency Medicine Ofordeme, Hydronephrosis with Kenechukwu ureteral stricture, MD Elie not elsewhere classified (Primary Dx);Nephrostomy complication (HCC);Urinary tract infection without hematuria, site unspecified 04/09/2018 Emergency Emergency Medicine Jong Abraham Nephrostomy tube MD Drake displaced (HCC) (Primary Dx) 03/12/2018 Emergency Emergency Medicine Shar Messina MD Nephrostomy tube displaced (HCC) (Primary Dx);Right flank pain 02/24/2018 [facility] Radiology Vince Buchanan Hydronephrosis, Encounter MD Caesar unspecified hydronephrosis type 02/18/2018 Outside Orders Central Scheduling Vince Buchanan Hydronephrosis, MD Caesar unspecified hydronephrosis type (Primary Dx) 12/28/2017 Emergency Emergency Medicine Jong Wiseman Obstructed MD Yaya nephrostomy tube (HCC) (Primary Dx);Right upper quadrant abdominal pain;Acute right-sided thoracic back pain;Hydronephrosis with ureteral stricture, not elsewhere classified;Nephrostom y tube displaced (HCC) 12/10/2017 Emergency Emergency Medicine Jong Abraham Nephrostomy tube MD Drake displaced (HCC) (Primary Dx);Acute pyelonephritis;Contro lled type 2 diabetes mellitus without complication, 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 (HCC);History of cervical cancer 11/19/2017 Hospital Radiology Vince Buchanan Hydronephrosis, Encounter MD Caesar unspecified hydronephrosis type 11/12/2017 Outside Orders Central Scheduling Vince Buchanan HydronephrosisCaesar MD unspecified hydronephrosis type (Primary Dx) 10/31/2017 Emergency Emergency Medicine Henry Barrett Nephrostmarianela Payan MD complication (HCC) (Primary Dx);Flank pain 08/05/2017 - Emergency General Internal Tj Roberts Hydronephrosis, 08/07/2017 Medicine MD Dilan unspecified Eneida Lovelace hydronephrosis type MD Nikunj (Primary Dx);Nephrostomy tube displaced (HCC) after 07/08/2017 Family History Medical History Relation Name Comments [...] Vital Sign Reading Time Taken Blood Pressure 154/67 05/06/2018 6:50 PM CDT Pulse 70 05/06/2018 6:50 PM CDT Temperature 36.6 C (97.9 F) 05/06/2018 5:25 PM CDT Respiratory Rate 18 05/06/2018 6:50 PM CDT Oxygen Saturation 98% 05/06/2018 6:50 PM CDT Inhaled Oxygen Concentration - - Weight 60.8 kg (134 lb) 04/09/2018 1:15 PM CDT Height 154.9 cm (5' 1") 04/09/2018 1:15 PM CDT Body Mass Index 25.32 04/09/2018 1:15 PM CDT Plan of Treatment Not on file Results PERMANENT LAB REPORT - SCAN (05/10/2018 2:51 PM)IR Removal of Nephrostomy Tube - Left (05/06/2018 6:50 PM) Specimen Performing Laboratory GE RIS Narrative FINAL REPORT Fluoroscopic guided bilateral nephrostomy tube exchange, 05/06/2018. Clinical History: Ureteral obstruction, clogged right PCN. Modality: Fluoroscopy. Edging Machine Feeder:Jenny. Payroll Auditor:Biju. Sedation: None. Estimated Blood Loss:Less than 5 cc. Specimen: None. Fluoro Time: 4.7 min.Dose (Ka,r): 75.2 mGy. Technique: Informed written consent was obtained. Discussion of risks, benefits, and alternatives were made with the patient. The patient expressed understanding and agreed to proceed.All elements maximal sterile barrier technique was utilized for this procedure, including utilization of sterile scrub solution for skin prep, a large sterile sheet to cover the areas of the patient that were not prepped, and hand hygiene, mask, head covering, and sterile gown for performing radiologist and scrub technologist. Local anesthesia was achieved with 1% lidocaine. Contrast was injected through the left nephroureterostomy catheter. A guidewire was advanced through the catheter and curled within the bladder. The old catheter was removed and a new 8 Armenian 24 cm nephroureterostomy catheter was advanced over the wire into the bladder. Pigtail was locked. Contrast was injected into the right PCN. A Glidewire was advanced through the catheter and curled within the right renal pelvis. The old catheter was removed and a new 12 Armenian pigtail catheter was placed into the right renal pelvis. The wire was then removed, and the pigtail of the catheter was locked. The catheters were then secured onto the skin with 2-0 silk. The patient tolerated the procedure well, without immediate complications. The patient's vital signs remained stable throughout the procedure. Patient disposition: The patient was discharged from the department in stable condition. Impression: Successful and uncomplicated fluoroscopic guided left nephroureterostomy catheter exchange and right nephrostomy catheter upsizing. Signed: Tray Alvarado MD Report Verified Date/Time:05/06/2018 19:42:30 Reading Location: [place] [address] Angio Body Reading Room Procedure Note Interface, External Ris In - 05/06/2018 7:50 PM CDT FINAL REPORT Fluoroscopic guided bilateral nephrostomy tube exchange, 05/06/2018. Clinical History: Ureteral obstruction, clogged right PCN. Modality: Fluoroscopy. Edging Machine Feeder: Jenny. Payroll Auditor: Biju. Sedation: None. Estimated Blood Loss: Less than 5 cc. Specimen: None. Fluoro Time: 4.7 min. Dose (Ka,r): 75.2 mGy. Technique: Informed written consent was obtained. Discussion of risks, benefits, and alternatives were made with the patient. The patient expressed understanding and agreed to proceed. All elements maximal sterile barrier technique was utilized for this procedure, including utilization of sterile scrub solution for skin prep, a large sterile sheet to cover the areas of the patient that were not prepped, and hand hygiene, mask, head covering, and sterile gown for performing radiologist and scrub technologist. Local anesthesia was achieved with 1% lidocaine. Contrast was injected through the left nephroureterostomy catheter. A guidewire was advanced through the catheter and curled within the bladder. The old catheter was removed and a new 8 Armenian 24 cm nephroureterostomy catheter was advanced over the wire into the bladder. Pigtail was locked. Contrast was injected into the right PCN. A Glidewire was advanced through the catheter and curled within the right renal pelvis. The old catheter was removed and a new 12 Armenian pigtail catheter was placed into the right renal pelvis. The wire was then removed, and the pigtail of the catheter was locked. The catheters were then secured onto the skin with 2-0 silk. The patient tolerated the procedure well, without immediate complications. The patient's vital signs remained stable throughout the procedure. Patient disposition: The patient was discharged from the department in stable condition. Impression: Successful and uncomplicated fluoroscopic guided left nephroureterostomy catheter exchange and right nephrostomy catheter upsizing. Signed: Tray Alvarado MD Report Verified Date/Time: 05/06/2018 19:42:30 Reading Location: [place] [id number] Angio Body Reading Room /aPTT (05/06/2018 4:00 PM)Only the most recent of6 resultswithin the time period is included. Component Value Ref Range Protime 13.1 11.7 - 14.7 seconds INR 1.0 <=5.9 PTT 30.4 22.5 - 36.0 seconds Specimen Performing Laboratory Blood [facility] [address] [address] Narrative RECOMMENDED COUMADIN/WARFARIN INR THERAPY RANGES STANDARD DOSE: 2.0 - 3.0 Includes: PROPHYLAXIS for venous thrombosis, systemic embolization; TREATMENT for venous thrombosis and/or pulmonary embolus. HIGH RISK: Target INR is 2.5-3.5 for patients with mechanical heart valves. CBC with platelet count + automated diff (05/06/2018 2:45 PM)Only the most recent of7 resultswithin the time period is included. Component Value Ref Range WBC 8.0 3.5 - 10.5 K/L RBC 3.39 (L) 3.93 - 5.22 M/L Hemoglobin 10.8 (L) 11.2 - 15.7 GM/DL Hematocrit 36.3 34.1 - 44.9 % MCV 107.1 (H) 79.4 - 94.8 fL MCH 31.9 25.6 - 32.2 pg MCHC 29.8 (L) 32.2 - 35.5 GM/DL RDW 15.4 (H) 11.7 - 14.4 % Platelets 237 150 - 450 K/CU MM MPV 11.2 9.4 - 12.3 fL nRBC 0 0 - 0 /100 WBC % Neutros 70 % % Lymphs 18 % % Monos 11 % % Eos 1 % % Baso 0 % # Neutros 5.56 1.56 - 6.13 K/L # Lymphs 1.45 1.18 - 3.74 K/L # Monos 0.85 (H) 0.24 - 0.36 K/L # Eos 0.06 0.04 - 0.36 K/L # Baso 0.03 0.01 - 0.08 K/L Immature Granulocytes-Relative 0 0 - 1 % Specimen Performing Laboratory Blood [address] [address] CBC with platelet count + automated diff (05/06/2018 2:45 PM)Only the most recent of7 resultswithin the time period is included. Specimen Performing Laboratory Blood Narrative The following orders were created for panel order CBC with platelet count + automated diff. Procedure Abnormality Status --------- ------ CBC with platelet count ...[[id number]]AbnormalFinal result Please view results for these tests on the individual orders. Basic Metabolic Panel (05/06/2018 2:45 PM)Only the most recent of7 resultswithin the time period is included. Component Value Ref Range Sodium 138 136 - 145 meq/L Potassium 4.2 3.5 - 5.1 meq/L Chloride 101 98 - 107 meq/L CO2 25 22 - 29 meq/L BUN 36 (H) 7 - 21 mg/dL Creatinine 1.20 0.57 - 1.25 mg/dL Glucose 60 (L) 70 - 105 mg/dL Calcium 9.3 8.4 - 10.2 mg/dL EGFR 44Comment: ESTIMATED GFR IS NOT ACCURATE mL/min/1.73 sq m CREATININE CLEARANCE IN PREDICTING GLOMERULAR FILTRATION RATE. ESTIMATED GFR IS NOT APPLICABLE FOR DIALYSIS PATIENTS. Specimen Performing Laboratory Blood [address] [address] IR Nephrostomy Tube Change - Right (04/09/2018 4:25 PM)Only the most recent of8 resultswithin the time period is included. Specimen Performing Laboratory GE RIS Narrative FINAL REPORT Right nephrostomy catheter exchange. History: Malfunction right nephrostomy catheter Modality: Fluoroscopy Sedation: None Edging Machine Feeder:Gerald Baeza MD. Payroll Auditor:None. Approach: Right flank Estimated blood loss:< 5 cc. Specimen: None. Fluoroscopy Time: 0.5 min. Reference Air Kerma (Ka, r): 6.9 mGy. Technique: Informed written consent was obtained. [...] gown for performing radiologist and scrub technologist. Contrast was injected within the indwelling right nephrostomy catheter confirming intraluminal position within the right collecting system. 2% lidocaine was used for local anesthesia. The existing catheter was cut and a 0.035 Bentson wire was advanced through the catheter and coiled within the right renal pelvis. The existing catheter was removed over wire. A new 10.2 Armenian nephrostomy catheter was advanced over wire with pigtail formed within the right renal pelvis. Contrast injection confirmed positioning. The catheter was fixed to the skin with silk suture. A sterile dressing was applied. The patient tolerated the procedure well without immediate application. Impression: Successful right percutaneous nephrostomy catheter exchange. Signed: Gerald Baeza MD Report Verified Date/Time:04/09/2018 17:42:07 Reading Location: [place] [address] Angio Body Reading Room Procedure Note Interface, External Ris In - 04/09/2018 5:44 PM CDT FINAL REPORT Right nephrostomy catheter exchange. History: Malfunction right nephrostomy catheter Modality: Fluoroscopy Sedation: None Edging Machine Feeder: Gerald Baeza MD. Payroll Auditor: None. Approach: Right flank Estimated blood loss: < 5 cc. Specimen: None. Fluoroscopy Time: 0.5 min. Reference Air Kerma (Ka, r): 6.9 mGy. Technique: Informed written consent was obtained. [...] gown for performing radiologist and scrub technologist. Contrast was injected within the indwelling right nephrostomy catheter confirming intraluminal position within the right collecting system. 2% lidocaine was used for local anesthesia. The existing catheter was cut and a 0.035 Bentson wire was advanced through the catheter and coiled within the right renal pelvis. The existing catheter was removed over wire. A new 10.2 Armenian nephrostomy catheter was advanced over wire with pigtail formed within the right renal pelvis. Contrast injection confirmed positioning. The catheter was fixed to the skin with silk suture. A sterile dressing was applied. The patient tolerated the procedure well without immediate application. Impression: Successful right percutaneous nephrostomy catheter exchange. Signed: Gerald Baeza MD Report Verified Date/Time: 04/09/2018 17:42:07 Reading Location: [address] Body Reading Room Urinalysis w/Microscopic (04/09/2018 1:41 PM)Only the most recent of5 resultswithin the time period is included. Component Value Ref Range Color, UA Yellow Clarity, UA Hazy Specific [place], UA 1.013 1.001 - 1.035 pH, UA 8.5 (H) 5.0 - 8.0 Protein, UA 300 mg/dL (A) Negative Glucose, UA Negative Negative Ketones, UA Negative Negative Bilirubin, UA Negative Negative Blood, UA Trace (A) Negative Nitrite, UA Negative Negative Leukocytes, UA Large (A) Negative Urobilinogen, UA 0.2 0.2 - 1.0 mg/dL RBC, UA 23 /HPF WBC, UA 0 /HPF Mucus Occasional Triple Phosphate Crystals Occasional Specimen Source Urine, [place] Specimen Performing Laboratory Urine - Urine, [address] [address] Urine culture (04/09/2018 1:41 PM)Only the most recent of5 resultswithin the time period is included. Component Value Ref Range Result >100,000 col/mL skin thomas Specimen Performing Laboratory Urine - Urine, [address] [address] IR Nephrosotomy Tube Change Left (02/24/2018 11:30 AM)Only the most recent of2 resultswithin the time period is included. Specimen Performing Laboratory GE RIS Narrative FINAL REPORT Left percutaneous nephroureterostomy and right percutaneous nephrostomy catheter exchange. History: 77-year-old female with history of ureteral strictures presents for routine catheter exchange. Modality: Fluoroscopy Sedation: None Edging Machine Feeder:Gerald Baeza MD. Payroll Auditor:None. Approach: Bilateral flanks Estimated blood loss:< 5 [...] for performing radiologist and scrub technologist. A bender hand image images was obtained. Contrast was injected through the indwelling left percutaneous nephroureterostomy catheter confirming position. 2% lidocaine was used for local anesthesia. The indwelling catheter was cut and a 0.035 Bentson wire was advanced and coiled within the urinary bladder. The existing catheter was removed over wire and a new 8.5 Armenian by 22 cm nephroureterostomy was advanced over [...] removed the wire and a new 10.2 Armenian pigtail catheter was advanced over wire with pigtail formed within the right renal pelvis. The catheter was fixed to the skin with silk suture and dressing was applied. The patient tolerated the procedure well without immediate complication. Impression: Successful fluoroscopic-guided left percutaneous nephroureterostomy and right percutaneous nephrostomy catheter exchange. Signed: Gerald Baeza MD Report Verified Date/Time:02/24/2018 16:05:12 Reading Location: [place] [address] Angio Body Reading Room Procedure Note Interface, External Ris In - 02/24/2018 4:07 PM CDT FINAL REPORT Left percutaneous nephroureterostomy and right percutaneous nephrostomy catheter exchange. History: 77-year-old female with history of ureteral strictures presents for routine catheter exchange. Modality: Fluoroscopy Sedation: None Edging Machine Feeder: Gerald Baeza MD. Payroll Auditor: None. Approach: Bilateral flanks Estimated blood loss: [...] for performing radiologist and scrub technologist. A bender hand image images was obtained. Contrast was injected through the indwelling left percutaneous nephroureterostomy catheter confirming position. 2% lidocaine was used for local anesthesia. The indwelling catheter was cut and a 0.035 Bentson wire was advanced and coiled within the urinary bladder. The existing catheter was removed over wire and a new 8.5 Armenian by 22 cm nephroureterostomy was advanced over [...] removed the wire and a new 10.2 Armenian pigtail catheter was advanced over wire with pigtail formed within the right renal pelvis. The catheter was fixed to the skin with silk suture and dressing was applied. The patient tolerated the procedure well without immediate complication. Impression: Successful fluoroscopic-guided left percutaneous nephroureterostomy and right percutaneous nephrostomy catheter exchange. Signed: Gerald Baeza MD Report Verified Date/Time: 02/24/2018 16:05:12 Reading Location: [facility] P048 Angio Body Reading Room abdomen 2 views flat and upright (10/31/2017 [...] MD Report Verified Date/Time:10/31/2017 14:41:15 Reading Location: [facility] [id number] Ortho Consult Reading Room Procedure Note Interface, External Ris In - 10/31/2017 2:43 PM CORPORATE HUMAN RESOURCES MANAGER FINAL REPORT Four views of the abdomen. IMPRESSION: None. IMPRESSION: Right nephrostomy and left nephroureterostomy catheters in position. Postsurgical changes are also seen in the lower lumbar spine and right hip. The bowel gas pattern is nonspecific. There are vascular calcifications. The osseous structures demonstrate degenerative change. No definite free intraperitoneal air. Signed: Haresh Juarez MD Report Verified Date/Time: 10/31/2017 14:41:15 Reading Location: [facility] [id number] Ortho Consult Reading Room -Glucose meter (08/07/2017 12:36 PM)Only the most recent of5 resultswithin the time period is included. Component Value Ref Range POC-Glucose Meter 120 (H)Comment: TESTED AT [address] 70 - 110 mg/[place] [id number] Specimen Performing Laboratory Blood [address] [address] Magnesium (08/07/2017 4:35 AM) Component Value Ref Range Magnesium 1.4 (L) 1.6 - 2.6 mg/dL Specimen Performing Laboratory Blood - Arm, Left [facility] [address] Blood culture #2 (08/06/2017 6:02 AM)Only the most recent of2 resultswithin the time period is included. Component Value Ref Range Result No growth in 5 days Specimen Performing Laboratory Blood - Arm, Right [address] [address] Hemoglobin A1c (08/06/2017 5:54 AM) Component Value Ref Range Hemoglobin A1C 5.7 4.3 - 6.1 % Specimen Performing Laboratory Blood - Central Venous Line [address] [address] US renal complete (08/06/2017 3:32 AM) Specimen [...] MD Report Verified Date/Time:08/06/2017 03:58:39 Reading Location: [facility] [id number] [facility] Consult Reading Room Procedure Note Interface, External [...] Report Verified Date/Time: 08/06/2017 03:58:39 Reading Location: [facility] B1 [id number] Ortho Consult Reading Room Lipase (08/05/2017 10:55 PM) Component Value Ref Range Lipase 31 8 - 78 U/L Specimen Performing Laboratory Blood - [address] [address] Amylase (08/05/2017 10:55 PM) Component Value Ref Range Amylase 71 25 - 125 U/L Specimen Performing Laboratory Blood - [address] [address] Hepatic function panel (08/05/2017 10:55 PM) Component Value Ref Range Protein, Total 7.3 6.0 - 8.3 gm/dL Albumin 3.5 3.5 - 5.0 g/dL Total Bilirubin <0.3 0.2 - 1.2 mg/dL Bilirubin, Direct 0.1 0.1 - 0.5 mg/dL Alkaline Phosphatase 92 40 - 150 U/L AST 17 5 - 34 U/L ALT 12 6 - 55 U/L Specimen Performing Laboratory Blood - [facility] [address] [place] [address] after 07/08/2017
--- OUTSIDE RECORDS SUMMARY | 2018-07-09 10:45 | XMS REPORT ---
:1940 [facility] Address [address] [place] [address] Care Team Providers Name Role Phone TILA SIMPSONFRANKIE TOLBERT Unavailable Unavailable LESLIE PRITCHARD Unavailable Unavailable LESLIE LOPEZ Unavailable Unavailable SAMLAURE CASTRO Unavailable Unavailable YANA SALAS Unavailable Unavailable ARACELI, BRENDA DAYANA Unavailable Unavailable Problems This patient has no known problems. Allergies, Adverse Reactions, Alerts This patient has no known allergies or adverse reactions. Medications This patient has no known medications. Results Test Description Test Time Test Comments Text Results Atomic Results Result Comments PT/APTT 2018-05-07 12:58:00 Test Item Value Reference Range Comments PROTIME (BEAKER) (test soin=368) 13.3 seconds 11.7-14.7 INR (BEAKER) (test jmte=218) 1.0 <=5.9 PARTIAL THROMBOPLASTIN TIME (BEAKER) (test vopu=992) 29.4 seconds 22.5-36.0 RECOMMENDED COUMADIN/WARFARIN INR THERAPY RANGESSTANDARD DOSE: 2.0 - 3.0 Includes: PROPHYLAXIS forvenous thrombosis, systemic embolization; TREATMENT for venous thrombosis and/or pulmonary embolus.HIGH RISK: Target INR is 2.5-3.5 for patients with mechanical heart valves.BASIC METABOLIC [id number] 12:19: 00 Test Item Value Reference Range Comments SODIUM (BEAKER) (test 138 meq/L 136-145 guvb=636) POTASSIUM (BEAKER) (test 4.2 meq/L 3.5-5.1 zzdh=971) CHLORIDE (BEAKER) (test 101 meq/L 98-107 evle=918) CO2 (BEAKER) (test 25 meq/L 22-29 xsfv=061) BLOOD UREA NITROGEN 36 mg/dL 7-21 (BEAKER) (test biby=448) CREATININE (BEAKER) (test 1.20 mg/dL 0.57-1.25 tnlx=899) GLUCOSE RANDOM (BEAKER) 60 mg/dL 70-105 (test rksi=747) CALCIUM (BEAKER) (test 9.3 mg/dL 8.4-10.2 nlik=662) EGFR (BEAKER) (test 44 mL/min/1.73 sq m ESTIMATED GFR IS NOT cyce=2097) ACCURATE CREATININE CLEARANCE IN PREDICTING GLOMERULAR FILTRATION RATE. ESTIMATED GFR IS NOT APPLICABLE FOR DIALYSIS PATIENTS. [id number] 11:43:00 Test Item Value Reference Range Comments PROTIME (BEAKER) (test zpfa=004) 13.1 seconds 11.7-14.7 INR (BEAKER) (test snxs=616) 1.0 <=5.9 PARTIAL THROMBOPLASTIN TIME (BEAKER) (test 30.4 seconds 22.5-36.0 tqtq=607) RECOMMENDED COUMADIN/WARFARIN INR THERAPY RANGESSTANDARD DOSE: 2.0 - 3.0 Includes: PROPHYLAXIS forvenous thrombosis, systemic embolization; TREATMENT for venous thrombosis and/or pulmonary embolus.HIGH RISK: Target INR is 2.5-3.5 for patients with mechanical heart valves.CBC W/PLT COUNT & AUTO [id number] 11:03:00 Test Item Value Reference Range Comments WHITE BLOOD CELL COUNT (BEAKER) (test sxym=507) 8.0 K/ L 3.5-10.5 RED BLOOD CELL COUNT (BEAKER) (test cfct=433) 3.39 M/ L 3.93-5.22 HEMOGLOBIN (BEAKER) (test jvhf=371) 10.8 GM/DL 11.2-15.7 HEMATOCRIT (BEAKER) (test mnpf=558) 36.3 % 34.1-44.9 MEAN CORPUSCULAR VOLUME (BEAKER) (test ysla=638) 107.1 fL 79.4-94.8 MEAN CORPUSCULAR HEMOGLOBIN (BEAKER) (test 31.9 pg 25.6-32.2 lvgi=369) MEAN CORPUSCULAR HEMOGLOBIN CONC (BEAKER) (test 29.8 GM/DL 32.2-35.5 owrz=312) RED CELL DISTRIBUTION WIDTH (BEAKER) (test 15.4 % 11.7-14.4 wzfl=647) PLATELET COUNT (BEAKER) (test hkxs=691) 237 K/CU MM 150-450 MEAN PLATELET VOLUME (BEAKER) (test inni=819) 11.2 fL 9.4-12.3 NUCLEATED RED BLOOD CELLS (BEAKER) (test 0 /100 WBC 0-0 zftb=540) NEUTROPHILS RELATIVE PERCENT (BEAKER) (test 70 % ngua=916) LYMPHOCYTES RELATIVE PERCENT (BEAKER) (test 18 % cdyo=524) MONOCYTES RELATIVE PERCENT (BEAKER) (test 11 % mkaa=449) EOSINOPHILS RELATIVE PERCENT (BEAKER) (test 1 % kizk=625) BASOPHILS RELATIVE PERCENT (BEAKER) (test 0 % neic=653) NEUTROPHILS ABSOLUTE COUNT (BEAKER) (test 5.56 K/ L 1.56-6.13 urxb=668) LYMPHOCYTES ABSOLUTE COUNT (BEAKER) (test 1.45 K/ L 1.18-3.74 tadv=600) MONOCYTES ABSOLUTE COUNT (BEAKER) (test 0.85 K/ L 0.24-0.36 yykg=826) EOSINOPHILS ABSOLUTE COUNT (BEAKER) (test 0.06 K/ L 0.04-0.36 rofs=718) BASOPHILS ABSOLUTE COUNT (BEAKER) (test 0.03 K/ L 0.01-0.08 cgbm=989) IMMATURE GRANULOCYTES-RELATIVE PERCENT (BEAKER) 0 % 0-1 (test ifib=1296) CLAU MULLINS W/ FLUORO NEPH, TUBE [id number] 19:42:00FINAL REPORT Fluoroscopic guided bilateral nephrostomy tube exchange, 05/06/2018. Clinical History: Ureteral obstruction, clogged right PCN. Modality: Fluoroscopy. Retail Buyer: Jenny. Camera Tuning Engineer: Biju. Sedation: None. Estimated Blood Loss: Less than 5 cc. Specimen: None. Fluoro Time: 4.7 min. Dose (Ka,r): 75.2 mGy. Technique: Informed written consentwas obtained. Discussion of risks, benefits, and alternatives were made with the patient. The patient expressed understanding and agreed to proceed. All elements maximal sterile barrier technique was utilized for this procedure, including utilization of sterile scrub solution for skin prep, a large sterile sheet to cover the areas of the patient that were not prepped, and hand hygiene , mask, head covering, and sterile gown for performing radiologist and scrub technologist. Local anesthesia was achieved with 1% lidocaine. Contrast was injected through the left nephroureterostomy catheter. A guidewire was advanced through the catheter and curled within the bladder. The old catheter was removed and a new 8 Canadian 24 cm nephroureterostomy catheter was advanced over the wire into the bladder. Pigtail was locked. Contrast was injected into the right PCN. A Glidewire was advanced through the catheter and curled within the right renal pelvis. The old catheter was removed and a new 12 Canadian pigtail catheter was placed into the right renal pelvis. The wire was then removed, and the pigtail of the catheter was locked. The catheters were then secured onto the skin with 2-0 silk. The patient tolerated the procedure well, without immediate complications. The patient's vital signs remained stable throughout the procedure. Patient disposition: The patient was discharged from the department in stable condition. Impression:Successful and uncomplicated fluoroscopic guided left nephroureterostomy catheter exchange and right nephrostomy catheter upsizing. Signed: Tray Alvarado MDReport Verified Date/ Time: 05/06/2018 19:42:30 Reading Location: [place] [address] Angio Body Reading Room URINE [id number] 12:31:00 Test Item Value Reference Range Comments CULTURE (BEAKER) (test vxhb=5581) >100,000 col/mL skin thomas ANG, NEPHROSTOMY TUBE CHANGE, [id number] 17:42:00Reason for exam:->Tube not drainingFINAL REPORT Right nephrostomy catheter exchange. History: Malfunction right nephrostomy catheter Modality: Fluoroscopy Sedation:None Retail Buyer: Gerald Baeza MD. Camera Tuning Engineer: None. Approach: Right flank Estimated blood loss: < 5 cc. Specimen: None. Fluoroscopy Time: 0.5 min.Reference Air Kerma (Ka, r): 6.9 mGy. Technique: Informed written consent was obtained. Discussion of risks , benefits, and alternatives were made with the [...] technologist. Contrast was injected within the indwelling rightnephrostomy catheter confirming intraluminal position within the right collecting system. 2% lidocaine was used for local anesthesia. The existing catheter was cut and a 0.035 Bentson wire was advancedthrough the catheter and coiled within the right renal pelvis. The existing catheter was removed over wire. A new 10.2 Canadian nephrostomy catheter was advanced over wire with pigtail formed within the right renal pelvis. Contrast injection confirmed positioning. The catheter was fixed to the skin withsilk suture. A sterile dressing was applied. The patient tolerated the procedure well without immediate application. Impression: Successful right percutaneous nephrostomy catheter exchange. Signed: Greald Baeza MDReport Verified Date/Time: 04/09/2018 17:42:07 Reading Location: [place] [address] Angio Body Reading Room URINALYSIS W/ [id number] 14 :48:00 Test Item Value Reference Range Comments COLOR (BEAKER) (test bnxg=552) Yellow CLARITY (BEAKER) (test mimv=551) Hazy SPECIFIC GRAVITY UA (BEAKER) (test asgw=530) 1.013 1.001-1.035 PH UA (BEAKER) (test cyhf=537) 8.5 5.0-8.0 PROTEIN UA (BEAKER) (test esad=598) 300 mg/dL Negative GLUCOSE UA (BEAKER) (test yaiu=829) Negative Negative KETONES UA (BEAKER) (test ovcc=447) Negative Negative BILIRUBIN UA (BEAKER) (test ldvw=362) Negative Negative BLOOD UA (BEAKER) (test vxug=632) Trace Negative NITRITE UA (BEAKER) (test paah=686) Negative Negative LEUKOCYTE ESTERASE UA (BEAKER) (test wjtt=892) Large Negative UROBILINOGEN UA (BEAKER) (test qkfe=282) 0.2 mg/dL 0.2-1.0 RBC UA (BEAKER) (test cmxp=860) 23 /HPF WBC UA (BEAKER) (test tezt=067) 0 /HPF MUCUS (BEAKER) (test dnms=6881) Occasional TRIPLE PHOSPHATE CRYSTALS (BEAKER) (test Occasional zyxn=7234) SOURCE(BEAKER) (test tdtg=0601) Urine, [place] BASIC METABOLIC [id number] 14:16:00 Test Item Value Reference Range Comments SODIUM (BEAKER) (test 138 meq/L 136-145 wzqv=923) POTASSIUM (BEAKER) (test 3.8 meq/L 3.5-5.1 sjjz=732) CHLORIDE (BEAKER) (test 104 meq/L 98-107 leij=394) CO2 (BEAKER) (test 23 meq/L 22-29 ztaf=371) BLOOD UREA NITROGEN 30 mg/dL 7-21 (BEAKER) (test znsy=292) CREATININE (BEAKER) (test 1.00 mg/dL 0.57-1.25 efyv=882) GLUCOSE RANDOM (BEAKER) 89 mg/dL 70-105 (test thnm=070) CALCIUM (BEAKER) (test 9.6 mg/dL 8.4-10.2 lzaa=277) EGFR (BEAKER) (test 54 mL/min/1.73 sq m ESTIMATED GFR IS NOT srdg=0668) ACCURATE CREATININE CLEARANCE IN PREDICTING GLOMERULAR FILTRATION RATE. ESTIMATED GFR IS NOT APPLICABLE FOR DIALYSIS PATIENTS. [id number] 14:06:00 Test Item Value Reference Range Comments PROTIME (BEAKER) (test ohlm=138) 13.8 seconds 11.7-14.7 INR (BEAKER) (test xehg=814) 1.1 <=5.9 PARTIAL THROMBOPLASTIN TIME (BEAKER) (test 30.3 seconds 22.5-36.0 hyla=067) RECOMMENDED COUMADIN/WARFARIN INR THERAPY RANGESSTANDARD DOSE: 2.0 - 3.0 Includes: PROPHYLAXIS forvenous thrombosis, systemic embolization; TREATMENT for venous thrombosis and/or pulmonary embolus.HIGH RISK: Target INR is 2.5-3.5 for patients with mechanical heart valves.CBC W/PLT COUNT & AUTO [id number] 13:53:00 Test Item Value Reference Range Comments WHITE BLOOD CELL COUNT (BEAKER) (test lgik=484) 7.1 K/ L 3.5-10.5 RED BLOOD CELL COUNT (BEAKER) (test rifq=343) 3.32 M/ L 3.93-5.22 HEMOGLOBIN (BEAKER) (test dgoy=185) 10.5 GM/DL 11.2-15.7 HEMATOCRIT (BEAKER) (test cged=226) 32.0 % 34.1-44.9 MEAN CORPUSCULAR VOLUME (BEAKER) (test hstv=933) 96.4 fL 79.4-94.8 MEAN CORPUSCULAR HEMOGLOBIN (BEAKER) (test 31.6 pg 25.6-32.2 jjhm=796) MEAN CORPUSCULAR HEMOGLOBIN CONC (BEAKER) (test 32.8 GM/DL 32.2-35.5 ruhb=174) RED CELL DISTRIBUTION WIDTH (BEAKER) (test 14.6 % 11.7-14.4 gqye=460) PLATELET COUNT (BEAKER) (test lcbe=424) 228 K/CU MM 150-450 MEAN PLATELET VOLUME (BEAKER) (test oenu=497) 10.8 fL 9.4-12.3 NUCLEATED RED BLOOD CELLS (BEAKER) (test 0 /100 WBC 0-0 chmn=053) NEUTROPHILS RELATIVE PERCENT (BEAKER) (test 68 % diwo=410) LYMPHOCYTES RELATIVE PERCENT (BEAKER) (test 18 % pltj=102) MONOCYTES RELATIVE PERCENT (BEAKER) (test 13 % ylha=008) EOSINOPHILS RELATIVE PERCENT (BEAKER) (test 1 % ijpk=339) BASOPHILS RELATIVE PERCENT (BEAKER) (test 0 % hexo=561) NEUTROPHILS ABSOLUTE COUNT (BEAKER) (test 4.78 K/ L 1.56-6.13 aghl=914) LYMPHOCYTES ABSOLUTE COUNT (BEAKER) (test 1.24 K/ L 1.18-3.74 lerv=408) MONOCYTES ABSOLUTE COUNT (BEAKER) (test 0.91 K/ L 0.24-0.36 ivxl=272) EOSINOPHILS ABSOLUTE COUNT (BEAKER) (test 0.07 K/ L 0.04-0.36 velg=458) BASOPHILS ABSOLUTE COUNT (BEAKER) (test 0.02 K/ L 0.01-0.08 slrl=811) IMMATURE GRANULOCYTES-RELATIVE PERCENT (BEAKER) 0 % 0-1 (test anfl=9384) HARPREET, NEPHROSTOMY TUBE CHANGE, [id number] 09:41:00Reason for exam:-> dysfunction nephrostomy tube on the rightFINAL REPORT History: Malfunctioning right percutaneous nephrostomy catheter.PROCEDURE: Following informed written consent, the patient's existing right external nephrostomy catheter and surrounding skin site were prepped and draped in the usual sterile manner. 2% lidocaine wasgiven locally for anesthesia. No conscious sedation was administered. The patient also received 500 mg of IV Levaquin prior to the procedure for antibiotic prophylaxis. Vital signs were monitored by the attending radiologist and a registered nurse during the procedure and remained stable. Nephrostogram was performed through the existing right percutaneous nephrostomy catheter. The catheter was then cut and removed over a wire. A new 10.2 Canadian pigtail nephrostomy catheter was placed over the wire, through the existing access tract and into position within the right renal pelvis under fluoroscopic control. Repeat contrast injection was performed to confirm position of the catheter. The catheter was then placed to external gravity bag drainage. Overall, the patient tolerated the procedure well without immediate complications and was discharged from the department in stable condition. FINDINGS: Multiple images obtained during the procedure show both pre-existing and new right external nephrostomycatheters to lie in expected positions with their tips coiled in the left renal collecting system. Moderate right-sided hydronephrosis is present. A left nephroureteral stent is also present. IMPRESSION: 1. Successful uncomplicated fluoroscopically guided exchange of the patient's right external nephrostomy catheter. Total fluoroscopy time: 0.8 minutes. Estimated total patient dose reported as (Ka,r): 6.3 mGy Signed: Leslie العراقي [facility] Verified Date/Time: 03/15/2018 09:41:31 Reading Location:[place] [address] Angio Body Reading Room ANG, NEPHROSTOMY TUBE CHANGE, [id number] 16:05:00Reason for Exam:->n13.30FINAL REPORT Left percutaneous nephroureterostomy and right percutaneous nephrostomy catheter exchange. History: 77 -year-old female with history of ureteral strictures presents for routine catheter exchange. Modality: FluoroscopySedation: None Retail Buyer: Gerald Baeza MD. Camera Tuning Engineer: None. Approach: Bilateral flanks Estimated blood loss: <5 cc. Specimen: None. Fluoroscopy Time: 1.4 min.Reference Air Kerma (Ka, r): 17.0 mGy. Technique:Informed written consent was obtained. Discussion of risks, benefits, and alternatives were made with the patient. The patient expressed understanding and agreed to proceed. A universal timeout was performed prior to starting the procedure. All elements maximal sterile barrier technique was utilizedfor this procedure, including utilization of sterile scrub solution for skin prep, a large sterile sheet to cover the areas of the patient that were not prepped, and hand hygiene, mask, head covering, and sterile gown for performing radiologist and scrub technologist. A home advisor image images was obtained. Contrast was injected through the indwelling left percutaneous nephroureterostomy catheter confirming position. 2% lidocaine was used for local anesthesia. The indwelling catheter was cut and a 0.035 Bentson wire was advanced and coiled within the urinary bladder. The existing catheter was removed over wire and a new 8.5 Canadian by 22 cm nephroureterostomy was advanced over [...] renal pelvis. The existing catheter was removed thewire and a new 10.2 Canadian pigtail catheter was advanced over wire with pigtail formed within the right renal pelvis. The catheter was fixed to the skin with silk suture and dressing was applied. The patient tolerated the procedure well without immediate complication. Impression: Successful fluoroscopic-guided left percutaneous nephroureterostomy and right percutaneous nephrostomy catheter exchange. Signed: Gerald Baeza MDReport Verified Date/Time: 02/24/2018 16:05:12 Reading Location: [facility] [address] Angio Body Reading Room Electronically signed by: GERALD BAEZA MD on 2017 04:05 PMANG, NEPHROSTOMY TUBE CHANGE, [id number] 16:05:00Reason for Exam:->n13.30FINAL REPORT Left percutaneous nephroureterostomy and right percutaneous nephrostomy catheter exchange. History: 77-year-old female with history of ureteral strictures presents for routine catheter exchange. Modality: FluoroscopySedation: None Retail Buyer: Gerald Baeza MD. Camera Tuning Engineer: None. Approach: Bilateral flanks Estimated blood loss: <5 cc. Specimen: None. Fluoroscopy Time: 1.4 min.Reference Air Kerma (Ka, r ): 17.0 mGy. Technique:Informed written consent was obtained. Discussion of risks, benefits, and alternatives were made with the patient. The patient expressed understanding and agreed to proceed. A universal timeout was performed prior to starting the procedure. All elements maximal sterile barrier technique was utilizedfor this procedure, including utilization of sterile scrub solution for skin prep, a large sterile sheet to cover the areas of the patient that were not prepped, and hand hygiene, mask, head covering, and sterile gown for performing radiologist and scrub technologist. A home advisor image images was obtained. Contrast was injected through the indwelling left percutaneous nephroureterostomy catheter confirming position. 2% lidocaine was used for local anesthesia. The indwelling catheter was cut and a 0.035 Bentson wire was advanced and coiled within the urinary bladder. The existing catheter was removed over wire and a new 8.5 Canadian by 22 cm nephroureterostomy was advanced over [...] renal pelvis. The existing catheter was removed thewire and a new 10.2 Canadian pigtail catheter was advanced over wire with pigtail formed within the right renal pelvis. The catheter was fixed to the skin with silk suture and dressing was applied. The patient tolerated the procedure well without immediate complication. Impression: Successful fluoroscopic-guided left percutaneous nephroureterostomy and right percutaneous nephrostomy catheter exchange. Signed: Gerald Baeza MDReport Verified Date/Time: 02/24/2018 16:05:12 Reading Location: [place] [address] Angio Body Reading Room Electronically signed by: GERALD BAEZA MD on 2017 04:05 PMANG, NEPHROSTOMY TUBE CHANGE, [id number] 17:02:00Reason for exam:->ABDOMINAL PAIN, flank pain, blockageFINAL REPORT History: Malfunctioning right nephrostomy tube, renal obstruction. PROCEDURE: Following informed [...] was then cut and removed over a Bentsonwire. A new 10.2 Canadian pigtail nephrostomy catheter was placed over the [...] of the patient's right external nephrostomy catheter. Totalfluoroscopy time: 1.0 minutes. Estimated total patient dose reported as (Ka,r): 15.1 mGy. Signed: Leslie العراقي MDReport Verified Date/Time : 12/29/2017 17:02:02 Reading Location: [place] [address] Angio Body Reading Room URINE [id number] 12:00:00 Test Item Value Reference Range Comments CULTURE (BEAKER) (test lpkl=8942) >100,000 col/mL skin thomas URINALYSIS W/ [id number] 10:15:00 Test Item Value Reference Range Comments COLOR (BEAKER) (test fcub=388) [place] CLARITY (BEAKER) (test ugim=609) Cloudy SPECIFIC GRAVITY UA (BEAKER) (test 1.021 1.001-1.035 vgji=198) PH UA (BEAKER) (test nuxz=342) 8.5 5.0-8.0 PROTEIN UA (BEAKER) (test glzl=814) >600 mg/dL Negative GLUCOSE UA (BEAKER) (test acak=497) Negative Negative KETONES UA (BEAKER) (test lylj=793) Negative Negative BILIRUBIN UA (BEAKER) (test cthj=781) Positive Negative BLOOD UA (BEAKER) (test uujb=049) Negative Negative NITRITE UA (BEAKER) (test ylhp=928) Positive Negative LEUKOCYTE ESTERASE UA (BEAKER) (test Small Negative mijr=413) UROBILINOGEN UA (BEAKER) (test mypi=537) 2.0 mg/dL 0.2-1.0 RBC UA (BEAKER) (test qibc=329) 0 /HPF WBC UA (BEAKER) (test abbk=542) 94 /HPF MUCUS (BEAKER) (test ktzr=0465) Occasional TRIPLE PHOSPHATE CRYSTALS (BEAKER) (test Moderate xdxj=3162) SOURCE(BEAKER) (test bpya=9182) Urine, Nephrostomy BASIC METABOLIC [id number] 10:04:00 Test Item Value Reference Range Comments SODIUM (BEAKER) (test 137 meq/L 136-145 yjll=146) POTASSIUM (BEAKER) (test 5.0 meq/L 3.5-5.1 alpc=128) CHLORIDE (BEAKER) (test 104 meq/L 98-107 zfjd=262) CO2 (BEAKER) (test 25 meq/L 22-29 yalz=370) BLOOD UREA NITROGEN 39 mg/dL 7-21 (BEAKER) (test alqz=561) CREATININE (BEAKER) (test 1.13 mg/dL 0.57-1.25 lsps=080) GLUCOSE RANDOM (BEAKER) 127 mg/dL 70-105 (test holb=239) CALCIUM (BEAKER) (test 9.0 mg/dL 8.4-10.2 olqw=130) EGFR (BEAKER) (test 47 mL/min/1.73 sq m ESTIMATED GFR IS NOT cemb=1324) ACCURATE CREATININE CLEARANCE IN PREDICTING GLOMERULAR FILTRATION RATE. ESTIMATED GFR IS NOT APPLICABLE FOR DIALYSIS PATIENTS. [id number] 09:53:00 Test Item Value Reference Range Comments PROTIME (BEAKER) (test tycw=769) 13.0 seconds 11.7-14.7 INR (BEAKER) (test vhdu=199) 1.0 <=5.9 PARTIAL THROMBOPLASTIN TIME (BEAKER) (test 28.9 seconds 22.5-36.0 inpq=173) RECOMMENDED COUMADIN/WARFARIN INR THERAPY RANGESSTANDARD DOSE: 2.0 - 3.0 Includes: PROPHYLAXIS forvenous thrombosis, systemic embolization; TREATMENT for venous thrombosis and/or pulmonary embolus.HIGH RISK: Target INR is 2.5-3.5 for patients with mechanical heart valves.CBC W/PLT COUNT & AUTO [id number] 09:52:00 Test Item Value Reference Range Comments WHITE BLOOD CELL COUNT (BEAKER) (test emga=209) 10.4 K/ L 3.5-10.5 RED BLOOD CELL COUNT (BEAKER) (test fgil=359) 3.48 M/ L 3.93-5.22 HEMOGLOBIN (BEAKER) (test ioqn=183) 10.8 GM/DL 11.2-15.7 HEMATOCRIT (BEAKER) (test aele=326) 34.4 % 34.1-44.9 MEAN CORPUSCULAR VOLUME (BEAKER) (test xjlv=617) 98.9 fL 79.4-94.8 MEAN CORPUSCULAR HEMOGLOBIN (BEAKER) (test 31.0 pg 25.6-32.2 khpb=858) MEAN CORPUSCULAR HEMOGLOBIN CONC (BEAKER) (test 31.4 GM/DL 32.2-35.5 cgfs=164) RED CELL DISTRIBUTION WIDTH (BEAKER) (test 14.0 % 11.7-14.4 avym=177) PLATELET COUNT (BEAKER) (test worz=709) 255 K/CU MM 150-450 MEAN PLATELET VOLUME (BEAKER) (test dfws=067) 10.6 fL 9.4-12.3 NUCLEATED RED BLOOD CELLS (BEAKER) (test 0 /100 WBC 0-0 tgtb=825) NEUTROPHILS RELATIVE PERCENT (BEAKER) (test 82 % stsf=342) LYMPHOCYTES RELATIVE PERCENT (BEAKER) (test 9 % fplf=160) MONOCYTES RELATIVE PERCENT (BEAKER) (test 8 % jksq=675) EOSINOPHILS RELATIVE PERCENT (BEAKER) (test 1 % ncrx=255) BASOPHILS RELATIVE PERCENT (BEAKER) (test 0 % xyyb=083) NEUTROPHILS ABSOLUTE COUNT (BEAKER) (test 8.58 K/ L 1.56-6.13 qmod=217) LYMPHOCYTES ABSOLUTE COUNT (BEAKER) (test 0.95 K/ L 1.18-3.74 xurm=613) MONOCYTES ABSOLUTE COUNT (BEAKER) (test 0.79 K/ L 0.24-0.36 sdca=594) EOSINOPHILS ABSOLUTE COUNT (BEAKER) (test 0.05 K/ L 0.04-0.36 torb=641) BASOPHILS ABSOLUTE COUNT (BEAKER) (test 0.02 K/ L 0.01-0.08 mvxo=637) IMMATURE GRANULOCYTES-RELATIVE PERCENT (BEAKER) 0 % 0-1 (test wvri=5478) URINE [id number] 09:49:00 Test Item Value Reference Range Comments CULTURE (BEAKER) (test kepz=9988) Amikacin (test code=1) Susceptible 0-16 , Resistant <0 or >16 Aztreonam (test code=32) Susceptible 0-8 , Resistant <0 or >8 Cefepime (test code=51) Susceptible 0-8 , Resistant <0 or >8 Ceftazidime (test code=27) Susceptible 0-8 , Resistant <0 or >8 Ciprofloxacin (test code=7) Susceptible 0-1 , Resistant <0 or >1 Doripenem (test uelg=662) Susceptible 0-2 , Resistant <0 or >2 [...] or >4 CULTURE (BEAKER) (test 80-89,000 col/mL azsf=4723) Pseudomonas aeruginosa >100,000 col/mL skin floraANG, NEPHROSTOMY TUBE CHANGE, [id number] 09:10: 00Reason for exam:->ABDOMINAL PAINFINAL REPORT Fluoroscopic guided bilateral nephrostomy tube exchange ClinicalHistory: Abdominal pain, bilateral percutaneous nephrostomy catheter. Modality: Sonography and fluoroscopy Retail Buyer: Star Brown MD. Camera Tuning Engineer : None.. SEDATION: None. Estimated Blood Loss: [...] catheter into the bladder. A new 8.5 Canadian by 24 cm nephroureteral catheter was placed. [...] catheter into the bladder. A new 10 Canadian pigtail catheter was placed. The wire was [...] Impression: 1. Uncomplicated exchange of left 8.5 Canadian by 24 cm nephroureteral catheter. 2. Uncomplicated exchange of right 10 [place] percutaneous nephrostomy catheter. Signed: Star Brown MDReportVerified Date/Time: 12/14/2017 09:10:40 Reading Location: [facility] B1 C013Y CT Body Reading Room Electronically signed by: STAR BROWN MD on 10/2018 09:10 AMANG, NEPHROSTOMY TUBE CHANGE, [id number] 09:10:00Reason for exam:->ABDOMINAL PAINFINAL REPORT Fluoroscopic guided bilateral nephrostomy tube exchange ClinicalHistory: Abdominal pain, bilateral percutaneous nephrostomy catheter. Modality: Sonography and fluoroscopy Retail Buyer: Star Brown MD. Camera Tuning Engineer: None.. SEDATION: None. Estimated Blood Loss: Less [...] catheter into the bladder. A new 8.5 Canadian by 24 cm nephroureteral catheter was placed. [...] catheter into the bladder. A new 10 Canadian pigtail catheter was placed. The wire was [...] Impression: 1. Uncomplicated exchange of left 8.5 Canadian by 24 cm nephroureteral catheter. 2. Uncomplicated exchange of right 10 Canadian percutaneous nephrostomy catheter. Signed: Star Brown MDReportVerified Date/Time: 12/14/2017 09:10:40 Reading Location: [facility] C013Y CT Body Reading Room Electronically signed by: STAR BROWN MD on 10/2018 09:10 AMCBC W/PLT COUNT & AUTO [id number] 15:37:00 Test Item Value Reference Range Comments WHITE BLOOD CELL COUNT (BEAKER) (test alzd=602) 11.1 K/ L 3.5-10.5 RED BLOOD CELL COUNT (BEAKER) (test pfvx=929) 3.52 M/ L 3.93-5.22 HEMOGLOBIN (BEAKER) (test cqbp=661) 11.2 GM/DL 11.2-15.7 HEMATOCRIT (BEAKER) (test jihv=806) 35.3 % 34.1-44.9 MEAN CORPUSCULAR VOLUME (BEAKER) (test bcoh=242) 100.3 fL 79.4-94.8 MEAN CORPUSCULAR HEMOGLOBIN (BEAKER) (test 31.8 pg 25.6-32.2 bavz=917) MEAN CORPUSCULAR HEMOGLOBIN CONC (BEAKER) (test 31.7 GM/DL 32.2-35.5 rpgl=405) RED CELL DISTRIBUTION WIDTH (BEAKER) (test 13.2 % 11.7-14.4 wynq=237) PLATELET COUNT (BEAKER) (test ynjx=906) 353 K/CU MM 150-450 MEAN PLATELET VOLUME (BEAKER) (test hqau=152) 10.6 fL 9.4-12.3 NUCLEATED RED BLOOD CELLS (BEAKER) (test 0 /100 WBC 0-0 eyks=578) NEUTROPHILS RELATIVE PERCENT (BEAKER) (test 83 % sswf=474) LYMPHOCYTES RELATIVE PERCENT (BEAKER) (test 8 % xotp=423) MONOCYTES RELATIVE PERCENT (BEAKER) (test 8 % kcmf=457) EOSINOPHILS RELATIVE PERCENT (BEAKER) (test 1 % eapt=929) BASOPHILS RELATIVE PERCENT (BEAKER) (test 0 % dztf=117) NEUTROPHILS ABSOLUTE COUNT (BEAKER) (test 9.20 K/ L 1.56-6.13 bwtg=192) LYMPHOCYTES ABSOLUTE COUNT (BEAKER) (test 0.87 K/ L 1.18-3.74 oefr=164) MONOCYTES ABSOLUTE COUNT (BEAKER) (test 0.91 K/ L 0.24-0.36 evax=566) EOSINOPHILS ABSOLUTE COUNT (BEAKER) (test 0.07 K/ L 0.04-0.36 zwdh=165) BASOPHILS ABSOLUTE COUNT (BEAKER) (test 0.03 K/ L 0.01-0.08 ndzr=173) IMMATURE GRANULOCYTES-RELATIVE PERCENT (BEAKER) 1 % 0-1 (test rojo=9423) BASIC METABOLIC [id number] 15:27:00 Test Item Value Reference Range Comments SODIUM (BEAKER) (test 132 meq/L 136-145 tilo=513) POTASSIUM (BEAKER) (test 5.1 meq/L 3.5-5.1 jwoc=883) CHLORIDE (BEAKER) (test 99 meq/L 98-107 dmuz=280) CO2 (BEAKER) (test 24 meq/L 22-29 sjsl=443) BLOOD UREA NITROGEN 36 mg/dL 7-21 (BEAKER) (test hqrc=117) CREATININE (BEAKER) (test 1.25 mg/dL 0.57-1.25 ceas=136) GLUCOSE RANDOM (BEAKER) 117 mg/dL 70-105 (test jqmm=240) CALCIUM (BEAKER) (test 9.4 mg/dL 8.4-10.2 krwv=419) EGFR (BEAKER) (test 42 mL/min/1.73 sq m ESTIMATED GFR IS NOT frpv=0695) ACCURATE CREATININE CLEARANCE IN PREDICTING GLOMERULAR FILTRATION RATE. ESTIMATED GFR IS NOT APPLICABLE FOR DIALYSIS PATIENTS. URINALYSIS W/ [id number] 15:22:00 Test Item Value Reference Range Comments COLOR (BEAKER) (test yxhk=802) Light Yellow CLARITY (BEAKER) (test ahyf=325) Hazy SPECIFIC GRAVITY UA (BEAKER) (test 1.007 1.001-1.035 gjui=152) PH UA (BEAKER) (test qiot=572) 5.5 5.0-8.0 PROTEIN UA (BEAKER) (test exus=088) 50 mg/dL Negative GLUCOSE UA (BEAKER) (test epoc=375) Negative Negative KETONES UA (BEAKER) (test lasl=963) Negative Negative BILIRUBIN UA (BEAKER) (test yyxm=971) Negative Negative BLOOD UA (BEAKER) (test yzoc=216) Small Negative NITRITE UA (BEAKER) (test cnzh=004) Positive Negative LEUKOCYTE ESTERASE UA (BEAKER) (test Large Negative tbtq=242) UROBILINOGEN UA (BEAKER) (test gldc=952) 0.2 mg/dL 0.2-1.0 RBC UA (BEAKER) (test axzm=823) 22 /HPF WBC UA (BEAKER) (test jnaj=896) 24 /HPF MUCUS (BEAKER) (test isyy=9384) Rare SQUAMOUS EPITHELIAL (BEAKER) (test < /HPF vhqf=122) HYALINE CASTS (BEAKER) (test gpeu=001) 2 /LPF SOURCE(BEAKER) (test swer=7278) Urine, Nephrostomy ANG, NEPHROSTOMY TUBE CHANGE, [id number] 18:37:00Reason for Exam:-> N13.30FINAL REPORT Procedure: Replacement [...] guidewire and replaced with a fresh 8.5 Canadian device with its tip in the renal pelvis. Approximately 80 cc of urine were removed. The left nephroureteral stent was removed over guidewire and a fresh 8.5 Canadian by 24 cm nephroureteral stent placed with itstip in the bladder. Contrast was injected into each of the nephrostomy catheters confirming satisfactory positioning. CONCLUSION: Replacement of bilateral nephrostomy catheters. Signed: Tha Cheung MDReport Verified Date/Time: 11/19 18:37:20 Reading Location: [facility] P048 Angio Body Reading Room ANG, NEPHROSTOMY TUBE CHANGE, [id number] 15:09:00Reason for exam:->FLANK PAINFINAL REPORT Exam: Right [...] tube was exchanged for a new 8.5 Canadian nephrostomy tube with the tip advanced to [...] MDReport Verified Date/Time: 10/31/2017 15:09:40 Reading Location: [facility] P048 Angio Body Reading Room RAD, ABDOMEN, 2 OR MORE [id number] 14:41:00Reason for exam:->FLANK PAINFINAL REPORT Four views [...] Verified Date/ Time: 10/31/2017 14:41:15 Reading Location: [facility] [id number] Consult Reading Room [facility] METABOLIC [id number] 12:03:00 Test Item Value Reference Range Comments SODIUM (BEAKER) (test 139 meq/L 136-145 kmxt=674) POTASSIUM (BEAKER) (test 4.8 meq/L 3.5-5.1 smma=908) CHLORIDE (BEAKER) (test 106 meq/L 98-107 ccqb=734) CO2 (BEAKER) (test 22 meq/L 22-29 bxqs=936) BLOOD UREA NITROGEN 34 mg/dL 7-21 (BEAKER) (test wwlg=167) CREATININE (BEAKER) (test 1.03 mg/dL 0.57-1.25 wovb=772) GLUCOSE RANDOM (BEAKER) 163 mg/dL 70-105 (test uowp=969) CALCIUM (BEAKER) (test 9.5 mg/dL 8.4-10.2 jszx=481) EGFR (BEAKER) (test 52 mL/min/1.73 sq m ESTIMATED GFR IS NOT kyie=4956) ACCURATE CREATININE CLEARANCE IN PREDICTING GLOMERULAR FILTRATION RATE. ESTIMATED GFR IS NOT APPLICABLE FOR DIALYSIS PATIENTS. CBC W/PLT COUNT & AUTO [id number] 11:30:00 Test Item Value Reference Range Comments WHITE BLOOD CELL COUNT (BEAKER) (test tktm=912) 9.1 K/ L 3.5-10.5 RED BLOOD CELL COUNT (BEAKER) (test xswp=197) 3.56 M/ L 3.93-5.22 HEMOGLOBIN (BEAKER) (test eapi=242) 11.3 GM/DL 11.2-15.7 HEMATOCRIT (BEAKER) (test pilf=381) 35.6 % 34.1-44.9 MEAN CORPUSCULAR VOLUME (BEAKER) (test nzyw=851) 100.0 fL 79.4-94.8 MEAN CORPUSCULAR HEMOGLOBIN (BEAKER) (test 31.7 pg 25.6-32.2 cgae=839) MEAN CORPUSCULAR HEMOGLOBIN CONC (BEAKER) (test 31.7 GM/DL 32.2-35.5 nujh=675) RED CELL DISTRIBUTION WIDTH (BEAKER) (test 14.3 % 11.7-14.4 qiot=664) PLATELET COUNT (BEAKER) (test jqvb=446) 323 K/CU MM 150-450 MEAN PLATELET VOLUME (BEAKER) (test yfin=582) 10.1 fL 9.4-12.3 NUCLEATED RED BLOOD CELLS (BEAKER) (test 0 /100 WBC 0-0 nwqn=667) NEUTROPHILS RELATIVE PERCENT (BEAKER) (test 86 % sfpa=899) LYMPHOCYTES RELATIVE PERCENT (BEAKER) (test 9 % neau=635) MONOCYTES RELATIVE PERCENT (BEAKER) (test 5 % nmvb=912) EOSINOPHILS RELATIVE PERCENT (BEAKER) (test 0 % wgob=460) BASOPHILS RELATIVE PERCENT (BEAKER) (test 0 % gaho=154) NEUTROPHILS ABSOLUTE COUNT (BEAKER) (test 7.75 K/ L 1.56-6.13 bzji=197) LYMPHOCYTES ABSOLUTE COUNT (BEAKER) (test 0.78 K/ L 1.18-3.74 moaj=527) MONOCYTES ABSOLUTE COUNT (BEAKER) (test 0.47 K/ L 0.24-0.36 tdjr=061) EOSINOPHILS ABSOLUTE COUNT (BEAKER) (test 0.00 K/ L 0.04-0.36 iadd=731) BASOPHILS ABSOLUTE COUNT (BEAKER) (test 0.02 K/ L 0.01-0.08 wjhx=234) IMMATURE GRANULOCYTES-RELATIVE PERCENT (BEAKER) 0 % 0-1 (test tqvl=5865) [id number] 11:17:00 Test Item Value Reference Range Comments PROTIME (BEAKER) (test jlib=869) 14.4 seconds 11.7-14.7 INR (BEAKER) (test xkwl=286) 1.1 <=5.9 PARTIAL THROMBOPLASTIN TIME (BEAKER) (test 31.3 seconds 22.5-36.0 vpum=593) RECOMMENDED COUMADIN/WARFARIN INR THERAPY RANGESSTANDARD DOSE: 2.0 - 3.0 Includes: PROPHYLAXIS forvenous thrombosis, systemic embolization; TREATMENT for venous thrombosis and/or pulmonary embolus.HIGH RISK: Target INR is 2.5-3.5 for patients with mechanical heart valves.BLOOD [id number] 11:00:00 Test Item Value Reference Range Comments CULTURE (BEAKER) (test qxks=3461) No growth in 5 days BLOOD [id number] 11:00:00 Test Item Value Reference Range Comments CULTURE (BEAKER) (test nzwm=6062) No growth in 5 days URINE [id number] 10:04:00 Test Item Value Reference Range Comments CULTURE (BEAKER) (test wcya=8692) See comment >100,000 col/mL enteric organisms of >3 types including Pseudomonas species. No further workupperformed. Multiple organisms suggestive of colonization or contamination. Repeat collection recommended.URINE [id number] 13:38:00 Test Item Value Reference Range Comments CULTURE (BEAKER) (test vvdz=9415) >100,000 col/mL skin thomas POCT-GLUCOSE [id number] 12:45:00 Test Item Value Reference Range Comments POC-GLUCOSE METER (BEAKER) 120 mg/dL 70-110 TESTED AT [address] (test jtuz=2662) [facility] [address] POCT-GLUCOSE [id number] 07:39:00 Test Item Value Reference Range Comments POC-GLUCOSE METER (BEAKER) 80 mg/dL 70-110 TESTED AT [address] (test eoxf=1660) [facility] [address] CBC W/PLT COUNT & AUTO [id number] 06:22:00 Test Item Value Reference Range Comments WHITE BLOOD CELL COUNT (BEAKER) (test oggx=335) 12.7 K/ L 3.5-10.5 RED BLOOD CELL COUNT (BEAKER) (test mnge=419) 3.13 M/ L 3.93-5.22 HEMOGLOBIN (BEAKER) (test ruqa=526) 10.0 GM/DL 11.2-15.7 HEMATOCRIT (BEAKER) (test jtnw=801) 31.2 % 34.1-44.9 MEAN CORPUSCULAR VOLUME (BEAKER) (test bsqk=129) 99.7 fL 79.4-94.8 MEAN CORPUSCULAR HEMOGLOBIN (BEAKER) (test 31.9 pg 25.6-32.2 leym=075) MEAN CORPUSCULAR HEMOGLOBIN CONC (BEAKER) (test 32.1 GM/DL 32.2-35.5 bgyd=479) RED CELL DISTRIBUTION WIDTH (BEAKER) (test 14.4 % 11.7-14.4 rxyh=511) PLATELET COUNT (BEAKER) (test gxni=481) 239 K/CU MM 150-450 MEAN PLATELET VOLUME (BEAKER) (test opoy=543) 10.5 fL 9.4-12.3 NUCLEATED RED BLOOD CELLS (BEAKER) (test 0 /100 WBC 0-0 bexc=684) NEUTROPHILS RELATIVE PERCENT (BEAKER) (test 81 % cwau=589) LYMPHOCYTES RELATIVE PERCENT (BEAKER) (test 7 % ygcu=990) MONOCYTES RELATIVE PERCENT (BEAKER) (test 9 % ibvx=522) EOSINOPHILS RELATIVE PERCENT (BEAKER) (test 1 % qjkn=838) BASOPHILS RELATIVE PERCENT (BEAKER) (test 0 % zxnb=017) NEUTROPHILS ABSOLUTE COUNT (BEAKER) (test 10.34 K/ L 1.56-6.13 qgiy=803) LYMPHOCYTES ABSOLUTE COUNT (BEAKER) (test 0.94 K/ L 1.18-3.74 qinf=392) MONOCYTES ABSOLUTE COUNT (BEAKER) (test 1.18 K/ L 0.24-0.36 ckog=920) EOSINOPHILS ABSOLUTE COUNT (BEAKER) (test 0.11 K/ L 0.04-0.36 lxmw=809) BASOPHILS ABSOLUTE COUNT (BEAKER) (test 0.03 K/ L 0.01-0.08 jnlk=312) IMMATURE GRANULOCYTES-RELATIVE PERCENT (BEAKER) 1 % 0-1 (test anse=6895) [id number] 05:46:00 Test Item Value Reference Range Comments MAGNESIUM (BEAKER) (test hkvu=121) 1.4 mg/dL 1.6-2.6 BASIC METABOLIC [id number] 05:46:00 Test Item Value Reference Range Comments SODIUM (BEAKER) (test 135 meq/L 136-145 sckt=415) POTASSIUM (BEAKER) (test 3.8 meq/L 3.5-5.1 ujcu=265) CHLORIDE (BEAKER) (test 104 meq/L 98-107 wmic=601) CO2 (BEAKER) (test 24 meq/L 22-29 dehm=987) BLOOD UREA NITROGEN 29 mg/dL 7-21 (BEAKER) (test synf=515) CREATININE (BEAKER) (test 1.00 mg/dL 0.57-1.25 uurz=100) GLUCOSE RANDOM (BEAKER) 94 mg/dL 70-105 (test smsi=360) CALCIUM (BEAKER) (test 8.4 mg/dL 8.4-10.2 vqdk=666) EGFR (BEAKER) (test 54 mL/min/1.73 sq m ESTIMATED GFR IS NOT pxfr=0610) ACCURATE CREATININE CLEARANCE IN PREDICTING GLOMERULAR FILTRATION RATE. ESTIMATED GFR IS NOT APPLICABLE FOR DIALYSIS PATIENTS. POCT-GLUCOSE [id number] 21:07:00 Test Item Value Reference Range Comments POC-GLUCOSE METER (BEAKER) 170 mg/dL 70-110 TESTED AT [facility] [address] [facility] (test lqws=5082) [facility] [address] ANG, NEPHROSTOMY TUBE CHANGE, [id number] 20:09:00FINAL REPORT Right nephrostomy catheter exchange. History: [...] the patient's medical record by the nurse. Retail Buyer: Gerald Baeza MD. Camera Tuning Engineer: MD Ulysses ( Fellow) Approach: Indwelling right [...] 2% lidocaine was used for local anesthesia. Weaver Wire Loom images were obtained demonstrating right nephrostomy catheter retracted to a renal calyx. The indwelling tube was cut and a 0.035 wire was advanced into the right renal pelvis. The existing catheter was removed over wire and a new 8.5 Canadian percutaneous nephrostomy catheter was advanced over wire with pigtail formed within the renal pelvis. There was immediate return of urine. Contrast injection confirmed position. The catheter was fixed tothe skin with silk suture. A sterile dressing was applied. The patient tolerated procedure well without immediate complication. IMPRESSION: Successful right percutaneous nephrostomy catheter exchange. Signed: Gerald Baezaeport Verified Date/Time: 08/06/2017 20:09:03 Reading Location: [place] [address] Angio Body Reading Room Electronically signed by: GERALD BAEZA MD on 2016 08:09 PMURINALYSIS W/ [id number] 19:55:00 Test Item Value Reference Range Comments COLOR (BEAKER) (test egjc=962) Brittaney CLARITY (BEAKER) (test wsir=806) Cloudy SPECIFIC GRAVITY UA (BEAKER) (test 1.016 1.001-1.035 iqaf=084) PH UA (BEAKER) (test fkdx=387) 8.0 5.0-8.0 PROTEIN UA (BEAKER) (test uebp=423) 300 mg/dL Negative GLUCOSE UA (BEAKER) (test npjg=496) Negative Negative KETONES UA (BEAKER) (test jvvq=749) Negative Negative BILIRUBIN UA (BEAKER) (test yauz=155) Negative Negative BLOOD UA (BEAKER) (test rgpj=315) Large Negative NITRITE UA (BEAKER) (test akbn=938) Negative Negative LEUKOCYTE ESTERASE UA (BEAKER) (test Large Negative xgrf=805) UROBILINOGEN UA (BEAKER) (test dksi=934) 0.2 mg/dL 0.2-1.0 RBC UA (BEAKER) (test bsfy=918) > /HPF WBC UA (BEAKER) (test fdlj=399) > /HPF MUCUS (BEAKER) (test lexy=0590) Rare SOURCE(BEAKER) (test dfed=7629) Urine, Nephrostomy POCT-GLUCOSE [id number] 12:58:00 Test Item Value Reference Range Comments POC-GLUCOSE METER (BEAKER) 131 mg/dL 70-110 TESTED AT [facility] [address] [facility] (test qunv=1856) [facility] [address] HEMOGLOBIN [id number] 09:30:00 Test Item Value Reference Range Comments HEMOGLOBIN A1C (BEAKER) (test akxs=420) 5.7 % 4.3-6.1 POCT-GLUCOSE [id number] 07:08:00 Test Item Value Reference Range Comments POC-GLUCOSE METER (BEAKER) 137 mg/dL 70-110 TESTED AT [facility] [address] [facility] (test nozb=9413) [facility] [address] [id number] 04:00:00 Test Item Value Reference Range Comments PROTIME (BEAKER) (test bpri=786) 13.4 seconds 11.7-14.7 INR (BEAKER) (test vusl=310) 1.0 <=5.9 PARTIAL THROMBOPLASTIN TIME (BEAKER) (test 30.1 seconds 22.5-36.0 trgg=323) RECOMMENDED COUMADIN/WARFARIN INR THERAPY RANGESSTANDARD DOSE: 2.0 - 3.0 Includes: PROPHYLAXIS forvenous thrombosis, systemic embolization; TREATMENT for venous thrombosis and/or pulmonary embolus.HIGH RISK: Target INR is 2.5-3.5 for patients with mechanical heart valves.U/S, RENAL, [id number] 03:58: 00Abdomen limited area? Add comment if [...] Verified Date/Time: 08/06/2017 03:58: 39 Reading Location: [facility] C013X [facility] Consult Reading Room URINALYSIS W / [id number] 01:01:00 Test Item Value Reference Range Comments COLOR (BEAKER) (test tjsa=109) Light Yellow CLARITY (BEAKER) (test fopz=820) Hazy SPECIFIC GRAVITY UA (BEAKER) (test kwyi=322) 1.011 1.001-1.035 PH UA (BEAKER) (test fkyy=106) 7.0 5.0-8.0 PROTEIN UA (BEAKER) (test xfuw=564) 200 mg/dL Negative GLUCOSE UA (BEAKER) (test akaa=575) Negative Negative KETONES UA (BEAKER) (test mlvx=365) Negative Negative BILIRUBIN UA (BEAKER) (test uxpw=682) Negative Negative BLOOD UA (BEAKER) (test lxbp=879) Moderate Negative NITRITE UA (BEAKER) (test syte=187) Negative Negative LEUKOCYTE ESTERASE UA (BEAKER) (test qeck=251) Moderate Negative UROBILINOGEN UA (BEAKER) (test bjda=155) 0.2 mg/dL 0.2-1.0 RBC UA (BEAKER) (test ziov=222) 22 /HPF WBC UA (BEAKER) (test anud=303) 26 /HPF BACTERIA (BEAKER) (test mlln=010) Occasional MUCUS (BEAKER) (test hsjz=8499) Rare SQUAMOUS EPITHELIAL (BEAKER) (test ossw=650) < /HPF HYALINE CASTS (BEAKER) (test rjoa=570) 6 /LPF TRIPLE PHOSPHATE CRYSTALS (BEAKER) (test Rare ucus=9115) AMORPHOUS CRYSTALS (BEAKER) (test uhjc=3823) Rare SOURCE(BEAKER) (test ijge=7160) Urine, Voided [id number] 23:21:00 Test Item Value Reference Range Comments LIPASE (BEAKER) (test xlmp=865) 31 U/L 8-78 [id number] 23:21:00 Test Item Value Reference Range Comments AMYLASE (BEAKER) (test jmnj=872) 71 U/L 25-125 BASIC METABOLIC [id number] 23:21:00 Test Item Value Reference Range Comments SODIUM (BEAKER) (test 139 meq/L 136-145 ynvl=337) POTASSIUM (BEAKER) (test 3.8 meq/L 3.5-5.1 kxhd=142) CHLORIDE (BEAKER) (test 104 meq/L 98-107 zygv=157) CO2 (BEAKER) (test 22 meq/L 22-29 fczt=382) BLOOD UREA NITROGEN 29 mg/dL 7-21 (BEAKER) (test ujev=989) CREATININE (BEAKER) (test 1.01 mg/dL 0.57-1.25 yude=240) GLUCOSE RANDOM (BEAKER) 104 mg/dL 70-105 (test gavy=881) CALCIUM (BEAKER) (test 9.2 mg/dL 8.4-10.2 mipp=428) EGFR (BEAKER) (test 54 mL/min/1.73 sq m ESTIMATED GFR IS NOT nqdr=5234) ACCURATE CREATININE CLEARANCE IN PREDICTING GLOMERULAR FILTRATION RATE. ESTIMATED GFR IS NOT APPLICABLE FOR DIALYSIS PATIENTS. HEPATIC FUNCTION [id number] 23:21:00 Test Item Value Reference Range Comments TOTAL PROTEIN (BEAKER) (test wcte=105) 7.3 gm/dL 6.0-8.3 ALBUMIN (BEAKER) (test jlen=0772) 3.5 g/dL 3.5-5.0 BILIRUBIN TOTAL (BEAKER) (test rppu=722) < mg/dL 0.2-1.2 BILIRUBIN DIRECT (BEAKER) (test pfxc=267) 0.1 mg/dL 0.1-0.5 ALKALINE PHOSPHATASE (BEAKER) (test rtxf=107) 92 U/L 40-150 AST (SGOT) (BEAKER) (test rlwt=824) 17 U/L 5-34 ALT (SGPT) (BEAKER) (test gcos=985) 12 U/L 6-55 CBC W/PLT COUNT & AUTO [id number] 23:15:00 Test Item Value Reference Range Comments WHITE BLOOD CELL COUNT (BEAKER) (test lpet=442) 13.0 K/ L 3.5-10.5 RED BLOOD CELL COUNT (BEAKER) (test seiv=873) 3.64 M/ L 3.93-5.22 HEMOGLOBIN (BEAKER) (test qacz=773) 11.6 GM/DL 11.2-15.7 HEMATOCRIT (BEAKER) (test iagr=641) 36.0 % 34.1-44.9 MEAN CORPUSCULAR VOLUME (BEAKER) (test ixxa=978) 98.9 fL 79.4-94.8 MEAN CORPUSCULAR HEMOGLOBIN (BEAKER) (test 31.9 pg 25.6-32.2 lslp=400) MEAN CORPUSCULAR HEMOGLOBIN CONC (BEAKER) (test 32.2 GM/DL 32.2-35.5 crbl=408) RED CELL DISTRIBUTION WIDTH (BEAKER) (test 13.7 % 11.7-14.4 bfpb=155) PLATELET COUNT (BEAKER) (test xmov=886) 284 K/CU MM 150-450 MEAN PLATELET VOLUME (BEAKER) (test qnkd=651) 9.7 fL 9.4-12.3 NUCLEATED RED BLOOD CELLS (BEAKER) (test 0 /100 WBC 0-0 dtfa=430) NEUTROPHILS RELATIVE PERCENT (BEAKER) (test 80 % loft=907) LYMPHOCYTES RELATIVE PERCENT (BEAKER) (test 10 % hpoq=653) MONOCYTES RELATIVE PERCENT (BEAKER) (test 7 % fxay=673) EOSINOPHILS RELATIVE PERCENT (BEAKER) (test 2 % nnnr=309) BASOPHILS RELATIVE PERCENT (BEAKER) (test 0 % ohii=815) NEUTROPHILS ABSOLUTE COUNT (BEAKER) (test 10.38 K/ L 1.56-6.13 qqox=594) LYMPHOCYTES ABSOLUTE COUNT (BEAKER) (test 1.27 K/ L 1.18-3.74 hzsz=316) MONOCYTES ABSOLUTE COUNT (BEAKER) (test 0.95 K/ L 0.24-0.36 ctmc=918) EOSINOPHILS ABSOLUTE COUNT (BEAKER) (test 0.26 K/ L 0.04-0.36 pamy=985) BASOPHILS ABSOLUTE COUNT (BEAKER) (test 0.05 K/ L 0.01-0.08 lerx=251) IMMATURE GRANULOCYTES-RELATIVE PERCENT (BEAKER) 0 % 0-1 (test fzda=0647) ANG, NEPHROSTOMY TUBE CHANGE, [id number] 11:25:00Reason for exam:->BACK PAINReason for exam:->FINAL REPORT Exchange of right percutaneous nephrostomy tube and left percutaneous nephroureteral stent. History: Back pain. Patient presented to the emergency department with a decreased drainage from the right nephrostomy catheter. Modality: Fluoroscopy Sedation: None Retail Buyer: Star Georges MD. Camera Tuning Engineer: None. Approach: ] Is approximately catheter and [...] exchanged over guidewire for a new 8.5 [place] nephrostomy catheter. After the new catheter was placed contrast was injected which confirmed proper positioning. The catheter isin superior the patient's skin with 2-0 silk and connected to gravity drainage bag. The left nephroureteral stent was then exchanged over guidewire for a new 8.5 [place] by 22 cm nephroureteral stent. The distal [...] percutaneous left nephroureteral stent. Signed: Star Georges MDReport Verified Date/Time: 07/08/2017 11:25: 07 Reading Location: [place] [id number] Angio Body Reading Room URINALYSIS W/ [id number] 09:16:00 Test Item Value Reference Range Comments COLOR (BEAKER) (test fish=937) Yellow CLARITY (BEAKER) (test xfma=006) Hazy SPECIFIC GRAVITY UA (BEAKER) (test 1.018 1.001-1.035 tbvh=357) PH UA (BEAKER) (test ojsw=330) 7.5 5.0-8.0 PROTEIN UA (BEAKER) (test oohc=169) 300 mg/dL Negative GLUCOSE UA (BEAKER) (test hmea=134) Negative Negative KETONES UA (BEAKER) (test fhod=301) Negative Negative BILIRUBIN UA (BEAKER) (test qvfg=263) Negative Negative BLOOD UA (BEAKER) (test hzni=746) Small Negative NITRITE UA (BEAKER) (test spoz=463) Negative Negative LEUKOCYTE ESTERASE UA (BEAKER) (test Moderate Negative auqd=529) UROBILINOGEN UA (BEAKER) (test vdsw=177) 0.2 mg/dL 0.2-1.0 RBC UA (BEAKER) (test htwa=517) > /HPF WBC UA (BEAKER) (test egat=357) > /HPF SQUAMOUS EPITHELIAL (BEAKER) (test 1 /HPF ipsm=150) SOURCE(BEAKER) (test lzkd=6872) Urine, Nephrostomy CBC W/PLT COUNT & AUTO [id number] 08:56:00 Test Item Value Reference Range Comments WHITE BLOOD CELL COUNT (BEAKER) (test vdtm=476) 10.2 K/ L 3.5-10.5 RED BLOOD CELL COUNT (BEAKER) (test vfce=422) 3.40 M/ L 3.93-5.22 HEMOGLOBIN (BEAKER) (test trru=009) 10.9 GM/DL 11.2-15.7 HEMATOCRIT (BEAKER) (test fnas=625) 33.7 % 34.1-44.9 MEAN CORPUSCULAR VOLUME (BEAKER) (test jxgl=359) 99.1 fL 79.4-94.8 MEAN CORPUSCULAR HEMOGLOBIN (BEAKER) (test 32.1 pg 25.6-32.2 jsiv=399) MEAN CORPUSCULAR HEMOGLOBIN CONC (BEAKER) (test 32.3 GM/DL 32.2-35.5 uvnt=590) RED CELL DISTRIBUTION WIDTH (BEAKER) (test 15.2 % 11.7-14.4 vjlt=728) PLATELET COUNT (BEAKER) (test hwgj=095) 317 K/CU MM 150-450 MEAN PLATELET VOLUME (BEAKER) (test eiru=442) 9.8 fL 9.4-12.3 NUCLEATED RED BLOOD CELLS (BEAKER) (test 0 /100 WBC 0-0 bskc=177) NEUTROPHILS RELATIVE PERCENT (BEAKER) (test 79 % pgld=535) LYMPHOCYTES RELATIVE PERCENT (BEAKER) (test 10 % ojxa=868) MONOCYTES RELATIVE PERCENT (BEAKER) (test 9 % expg=527) EOSINOPHILS RELATIVE PERCENT (BEAKER) (test 2 % hjnn=255) BASOPHILS RELATIVE PERCENT (BEAKER) (test 0 % vaaa=163) NEUTROPHILS ABSOLUTE COUNT (BEAKER) (test 8.07 K/ L 1.56-6.13 addk=264) LYMPHOCYTES ABSOLUTE COUNT (BEAKER) (test 1.06 K/ L 1.18-3.74 ikta=753) MONOCYTES ABSOLUTE COUNT (BEAKER) (test 0.88 K/ L 0.24-0.36 aiet=125) EOSINOPHILS ABSOLUTE COUNT (BEAKER) (test 0.16 K/ L 0.04-0.36 kuhd=047) BASOPHILS ABSOLUTE COUNT (BEAKER) (test 0.02 K/ L 0.01-0.08 fhym=546) IMMATURE GRANULOCYTES-RELATIVE PERCENT (BEAKER) 1 % 0-1 (test dsgq=9758) BASIC METABOLIC [id number] 08:48:00 Test Item Value Reference Range Comments SODIUM (BEAKER) (test 138 meq/L 136-145 thts=430) POTASSIUM (BEAKER) (test 4.6 meq/L 3.5-5.1 josk=831) CHLORIDE (BEAKER) (test 104 meq/L 98-107 xszm=822) CO2 (BEAKER) (test 23 meq/L 22-29 nvti=655) BLOOD UREA NITROGEN 40 mg/dL 7-21 (BEAKER) (test eoxh=301) CREATININE (BEAKER) (test 1.03 mg/dL 0.57-1.25 bxxa=558) GLUCOSE RANDOM (BEAKER) 140 mg/dL 70-105 (test rmef=748) CALCIUM (BEAKER) (test 9.1 mg/dL 8.4-10.2 gxnk=809) EGFR ([facility]) (test 52 mL/min/1.73 sq m ESTIMATED GFR IS NOT wxsm=0332) ACCURATE CREATININE CLEARANCE IN PREDICTING GLOMERULAR FILTRATION RATE. ESTIMATED GFR IS NOT APPLICABLE FOR DIALYSIS PATIENTS. URINE [id number] 08:09:00 Test Item Value Reference Range Comments CULTURE (AKER) (test STENOTROPHOMONAS >100,000 col/mL glqm=5060) MALTOPHILIA Stenotrophomonas maltophilia Amikacin (test code=1) Ampicillin (test code=26) Ampicillin + Sulbactam (test code=6) Aztreonam (test code=32) Cefazolin (test code=9) Cefepime (test code=51) Ceftazidime (test Susceptible 0-8 , code=27) Resistant <0 or >8 Ceftriaxone (test code=52) Ciprofloxacin (test code=7) Doripenem (test seat=014) Ertapenem (test code=38) Gentamicin (test code=18) Imipenem (test code=19) Levofloxacin (test Susceptible 0-2 , code=22) Resistant <0 or >2 Meropenem (test code=34) Minocycline (test Susceptible 0-4 , code=35) Resistant <0 or >4 Nitrofurantoin (test code=23) Piperacillin (test code=24) Piperacillin + Tazobactam (test code=29) Tetracycline (test code=2) Ticarcillin + Clavulanic Acid (test code=80) Tigecycline (test sjea=753) Tobramycin (test code=25) Trimethoprim + Susceptible 0-40 Sulfamethoxazole (test , Resistant <0 or code=47) >40 CULTURE ([facility]) (test COAGULASE NEGATIVE >100,000 col/mL mpfd=7849) STAPHYLOCOCCUS Coagulase negative Staphylococcus Ampicillin (test ppmz=863) Ciprofloxacin (test code=72) Clindamycin (test code=10) Daptomycin (test code=59) Erythromycin (test code=4) Gentamicin (test peok=746) Gentamicin High Level Synergy (test rgnj=827) Levofloxacin (test code=22) Linezolid (test code=40) Moxifloxacin (test code=36) Nitrofurantoin (test code=23) Oxacillin (test code=14) Rifampin (test code=43) Streptomycin High Level Synergy (test lqui=873) Tetracycline (test code=2) Tigecycline (test bkwp=6177) Trimethoprim + Sulfamethoxazole (test code=47) Vancomycin (test code=13) URINALYSIS W/ [id number] 10:28:00 Test Item Value Reference Range Comments COLOR (BEAKER) (test djyt=850) Yellow CLARITY (BEAKER) (test jwfo=404) Clear SPECIFIC GRAVITY UA (BEAKER) (test 1.014 1.001-1.035 lasp=651) PH UA (BEAKER) (test mfgc=730) 6.0 5.0-8.0 PROTEIN UA (BEAKER) (test upwm=163) 50 mg/dL Negative GLUCOSE UA (BEAKER) (test fvbp=491) Negative Negative KETONES UA (BEAKER) (test asfx=766) Negative Negative BILIRUBIN UA (BEAKER) (test mwxg=485) Negative Negative BLOOD UA (BEAKER) (test enzk=279) Trace Negative NITRITE UA (BEAKER) (test djsz=039) Positive Negative LEUKOCYTE ESTERASE UA (BEAKER) (test Large Negative cqww=338) UROBILINOGEN UA (BEAKER) (test xunr=269) 0.2 mg/dL 0.2-1.0 RBC UA (BEAKER) (test kbrr=653) 1 /HPF WBC UA (BEAKER) (test vmcx=780) 15 /HPF BACTERIA (BEAKER) (test huct=124) Rare HYALINE CASTS (BEAKER) (test itww=342) 9 /LPF CRYSTALS, URINE (BEAKER) (test wctn=8754) Rare SOURCE(BEAKER) (test glyk=6339) Urine, Nephrostomy BASIC METABOLIC [id number] 10:18:00 Test Item Value Reference Range Comments SODIUM (BEAKER) (test 136 meq/L 136-145 ouke=255) POTASSIUM (BEAKER) (test 3.8 meq/L 3.5-5.1 ogxn=520) CHLORIDE (BEAKER) (test 100 meq/L 98-107 cuxj=045) CO2 (BEAKER) (test 24 meq/L 22-29 ivxj=867) BLOOD UREA NITROGEN 26 mg/dL 7-21 (BEAKER) (test cixo=902) CREATININE (BEAKER) (test 0.89 mg/dL 0.57-1.25 twfm=834) GLUCOSE RANDOM (BEAKER) 82 mg/dL 70-105 (test hlgf=606) CALCIUM (BEAKER) (test 9.3 mg/dL 8.4-10.2 jbvp=874) EGFR (BEAKER) (test 62 mL/min/1.73 sq m ESTIMATED GFR IS NOT ohkm=1697) ACCURATE CREATININE CLEARANCE IN PREDICTING GLOMERULAR FILTRATION RATE. ESTIMATED GFR IS NOT APPLICABLE FOR DIALYSIS PATIENTS. CBC W/PLT COUNT & AUTO [id number] 10:12:00 Test Item Value Reference Range Comments WHITE BLOOD CELL COUNT (BEAKER) (test wrdb=707) 9.6 K/ L 4.0-10.0 RED BLOOD CELL COUNT (BEAKER) (test iefc=664) 3.48 M/ L 4.00-5.00 HEMOGLOBIN (BEAKER) (test wdqs=522) 10.4 GM/DL 12.0-15.0 HEMATOCRIT (BEAKER) (test isrg=730) 33.0 % 36.0-45.0 MEAN CORPUSCULAR VOLUME (BEAKER) (test mvfq=713) 94.8 fL 82.0-99.0 MEAN CORPUSCULAR HEMOGLOBIN (BEAKER) (test 29.9 pg 27.0-33.0 ifjs=291) MEAN CORPUSCULAR HEMOGLOBIN CONC (BEAKER) (test 31.5 GM/DL 32.0-36.0 ukso=470) RED CELL DISTRIBUTION WIDTH (BEAKER) (test 15.7 % 10.3-14.2 qcph=752) PLATELET COUNT (BEAKER) (test ycmy=579) 548 K/CU MM 150-430 MEAN PLATELET VOLUME (BEAKER) (test wkym=405) 6.2 fL 6.5-10.5 NUCLEATED RED BLOOD CELLS (BEAKER) (test 0 /100 WBC 0-0 qbzy=165) NEUTROPHILS RELATIVE PERCENT (BEAKER) (test 70 % fgkj=694) LYMPHOCYTES RELATIVE PERCENT (BEAKER) (test 17 % upor=040) MONOCYTES RELATIVE PERCENT (BEAKER) (test 12 % qwig=826) EOSINOPHILS RELATIVE PERCENT (BEAKER) (test 2 % ioxu=012) BASOPHILS RELATIVE PERCENT (BEAKER) (test 1 % bjbn=478) NEUTROPHILS ABSOLUTE COUNT (BEAKER) (test 6.65 K/ L 1.80-8.00 wsvj=502) LYMPHOCYTES ABSOLUTE COUNT (BEAKER) (test 1.58 K/ L 1.48-4.50 qmnr=719) MONOCYTES ABSOLUTE COUNT (BEAKER) (test 1.11 K/ L 0.00-1.30 focj=532) EOSINOPHILS ABSOLUTE COUNT (BEAKER) (test 0.17 K/ L 0.00-0.50 yngg=517) BASOPHILS ABSOLUTE COUNT (BEAKER) (test 0.06 K/ L 0.00-0.20 oqgl=887) 0.00PT/[id number] 10:12:00 Test Item Value Reference Range Comments PROTIME (BEAKER) (test jpyh=487) 13.4 seconds 11.7-14.7 INR (BEAKER) (test fhco=376) 1.0 <=5.9 PARTIAL THROMBOPLASTIN TIME (BEAKER) (test 36.3 seconds 22.5-36.0 gqln=740) RECOMMENDED COUMADIN/WARFARIN INR THERAPY RANGESSTANDARD DOSE: 2.0 - 3.0 Includes: PROPHYLAXIS forvenous thrombosis, systemic embolization; TREATMENT for venous thrombosis and/or pulmonary embolus.HIGH RISK: Target INR is 2.5-3.5 for patients with mechanical heart valves.POCT-GLUCOSE [id number] 13:22:00 Test Item Value Reference Range Comments POC-GLUCOSE METER (BEAKER) 136 mg/dL 70-110 TESTED AT [address] (test jipl=0915) [place] [address] POCT-GLUCOSE [id number] 07:56:00 Test Item Value Reference Range Comments POC-GLUCOSE METER (BEAKER) 185 mg/dL 70-110 TESTED AT [address] (test clat=4908) [place] [address] HEMOGLOBIN AND [id number] 06:36:00 Test Item Value Reference Range Comments HEMOGLOBIN (BEAKER) (test hwzm=023) 9.1 GM/DL 12.0-15.0 HEMATOCRIT (BEAKER) (test fwsa=512) 29.3 % 36.0-45.0 BASIC METABOLIC [id number] 06:21:00 Test Item Value Reference Range Comments SODIUM (BEAKER) (test 142 meq/L 136-145 orlm=136) POTASSIUM (BEAKER) (test 3.8 meq/L 3.5-5.1 tjaq=693) CHLORIDE (BEAKER) (test 108 meq/L 98-107 ukpx=512) CO2 (BEAKER) (test 22 meq/L 22-29 vlou=192) BLOOD UREA NITROGEN 30 mg/dL 7-21 (BEAKER) (test uskb=810) CREATININE (BEAKER) (test 1.44 mg/dL 0.57-1.25 nuic=109) GLUCOSE RANDOM (BEAKER) 133 mg/dL 70-105 (test pacj=068) CALCIUM (BEAKER) (test 8.3 mg/dL 8.4-10.2 sxst=500) EGFR (BEAKER) (test 36 mL/min/1.73 sq m ESTIMATED GFR IS NOT blua=2016) ACCURATE CREATININE CLEARANCE IN PREDICTING GLOMERULAR FILTRATION RATE. ESTIMATED GFR IS NOT APPLICABLE FOR DIALYSIS PATIENTS. [id number] 06:05:00 Test Item Value Reference Range Comments PROTIME (BEAKER) (test uslp=928) 15.8 seconds 11.7-14.7 INR (BEAKER) (test xzyb=005) 1.3 <=5.9 PARTIAL THROMBOPLASTIN TIME (BEAKER) (test 39.7 seconds 22.5-36.0 cjao=472) RECOMMENDED COUMADIN/WARFARIN INR THERAPY RANGESSTANDARD DOSE: 2.0 - 3.0 Includes: PROPHYLAXIS forvenous thrombosis, systemic embolization; TREATMENT for venous thrombosis and/or pulmonary embolus.HIGH RISK: Target INR is 2.5-3.5 for patients with mechanical heart valves.POCT-GLUCOSE [id number] 20:59:00 Test Item Value Reference Range Comments POC-GLUCOSE METER (BEAKER) 139 mg/dL 70-110 TESTED AT [facility] [address] [facility] (test urgi=9539) [place] [id number] POCT-GLUCOSE [id number] 17:25:00 Test Item Value Reference Range Comments POC-GLUCOSE METER (BEAKER) 213 mg/dL 70-110 TESTED AT [facility] [address] [facility] (test jwpw=8953) [facility] [address] BASIC METABOLIC [id number] 15:09:00 Test Item Value Reference Range Comments SODIUM (BEAKER) (test 140 meq/L 136-145 zggm=936) POTASSIUM (BEAKER) (test 3.8 meq/L 3.5-5.1 qpwy=591) CHLORIDE (BEAKER) (test 106 meq/L 98-107 bvqm=453) CO2 (BEAKER) (test 24 meq/L 22-29 tsvq=845) BLOOD UREA NITROGEN 35 mg/dL 7-21 (BEAKER) (test rxqb=225) CREATININE (BEAKER) (test 1.64 mg/dL 0.57-1.25 lsuo=158) GLUCOSE RANDOM (BEAKER) 181 mg/dL 70-105 (test qucl=551) CALCIUM (BEAKER) (test 8.2 mg/dL 8.4-10.2 blsq=675) EGFR (BEAKER) (test 31 mL/min/1.73 sq m ESTIMATED GFR IS NOT muhy=8420) ACCURATE CREATININE CLEARANCE IN PREDICTING GLOMERULAR FILTRATION RATE. ESTIMATED GFR IS NOT APPLICABLE FOR DIALYSIS PATIENTS. PROTHROMBIN [id number] 14:53:00 Test Item Value Reference Range Comments PROTIME (BEAKER) (test vkhp=651) 15.6 seconds 11.7-14.7 INR (BEAKER) (test ikxr=464) 1.3 <=5.9 RECOMMENDED COUMADIN/WARFARIN INR THERAPY RANGESSTANDARD DOSE: 2.0 - 3.0 Includes: PROPHYLAXIS forvenous thrombosis, systemic embolization; TREATMENT for venous thrombosis and/or pulmonary embolus.HIGH RISK: Target INR is 2.5-3.5 for patients with mechanical heart valves.HEMOGLOBIN AND [id number] 14 :50:00 Test Item Value Reference Range Comments HEMOGLOBIN (BEAKER) (test fdef=414) 10.4 GM/DL 12.0-15.0 HEMATOCRIT (BEAKER) (test qdrz=956) 32.6 % 36.0-45.0 CBC W/PLT COUNT & AUTO [id number] 12:10:00 Test Item Value Reference Range Comments WHITE BLOOD CELL COUNT (BEAKER) (test ffue=274) 11.7 K/ L 4.0-10.0 RED BLOOD CELL COUNT (BEAKER) (test jsyg=143) 3.31 M/ L 4.00-5.00 HEMOGLOBIN (BEAKER) (test lqug=335) 9.9 GM/DL 12.0-15.0 HEMATOCRIT (BEAKER) (test dkve=851) 31.3 % 36.0-45.0 MEAN CORPUSCULAR VOLUME (BEAKER) (test cbtm=925) 94.5 fL 82.0-99.0 MEAN CORPUSCULAR HEMOGLOBIN (BEAKER) (test 30.0 pg 27.0-33.0 sdsp=909) MEAN CORPUSCULAR HEMOGLOBIN CONC (BEAKER) (test 31.7 GM/DL 32.0-36.0 mbks=303) RED CELL DISTRIBUTION WIDTH (BEAKER) (test 14.6 % 10.3-14.2 mxwn=109) PLATELET COUNT (BEAKER) (test txdt=673) 393 K/CU MM 150-430 MEAN PLATELET VOLUME (BEAKER) (test qyfx=192) 7.4 fL 6.5-10.5 NUCLEATED RED BLOOD CELLS (BEAKER) (test 0 /100 WBC 0-0 ozjx=896) NEUTROPHILS RELATIVE PERCENT (BEAKER) (test 76 % zssj=182) LYMPHOCYTES RELATIVE PERCENT (BEAKER) (test 11 % qmfs=795) MONOCYTES RELATIVE PERCENT (BEAKER) (test 12 % rhva=111) EOSINOPHILS RELATIVE PERCENT (BEAKER) (test 2 % triu=031) BASOPHILS RELATIVE PERCENT (BEAKER) (test 0 % nlbu=086) NEUTROPHILS ABSOLUTE COUNT (BEAKER) (test 8.83 K/ L 1.80-8.00 jnxg=598) LYMPHOCYTES ABSOLUTE COUNT (BEAKER) (test 1.23 K/ L 1.48-4.50 rpbh=736) MONOCYTES ABSOLUTE COUNT (BEAKER) (test 1.42 K/ L 0.00-1.30 gwcv=211) EOSINOPHILS ABSOLUTE COUNT (BEAKER) (test 0.19 K/ L 0.00-0.50 buoo=143) BASOPHILS ABSOLUTE COUNT (BEAKER) (test 0.00 K/ L 0.00-0.20 aalo=531) [id number] 11:59:00 Test Item Value Reference Range Comments SODIUM (BEAKER) (test bjbt=743) 141 meq/L 136-145 POTASSIUM (BEAKER) (test gomr=614) 3.7 meq/L 3.5-5.1 CHLORIDE (BEAKER) (test scra=237) 107 meq/L 98-107 CO2 (BEAKER) (test qhng=842) 24 meq/L 22-29 BUN AND [id number] 11:53:00 Test Item Value Reference Range Comments BLOOD UREA NITROGEN 38 mg/dL 7-21 (REXAKER) (test vslq=210) CREATININE (BEAKER) (test 1.61 mg/dL 0.57-1.25 qnkg=373) EGFR (BEAKER) (test 31 mL/min/1.73 sq m ESTIMATED GFR IS NOT wxdo=5491) ACCURATE CREATININE CLEARANCE IN PREDICTING GLOMERULAR FILTRATION RATE. ESTIMATED GFR IS NOT APPLICABLE FOR DIALYSIS PATIENTS. POCT-GLUCOSE [id number] 10:51:00 Test Item Value Reference Range Comments POC-GLUCOSE METER ([employer]) 52 mg/dL 70-110 Notified TASHA GRECO/TESTED AT [facility] (test itvf=8274) [address] [facility] [address]
[2018-07-09] MEDS ORDERED: Ringers Lactate 2,000 ML IV ONE (11:22)
[2018-07-09] MEDS ORDERED: CEFEPIME 1 GM/100 ML BAG IV ONE (11:23)
[2018-07-09 11:41] LABS: Absolute Lymphocytes (CBC) 0.4 K/uL (0.7-4.9); Absolute Monocytes 1.5 K/uL (0.1-1.3); Absolute Neutrophil 12.5 K/uL (1.8-8.0); Basophils % 0.3 % (0-1.3); Eosinophils % 0.1 % (0-4.4); Hematocrit 32.8 % (36.0-45.0); Lymphocytes % 2.8 % (15.3-44.8); MCH 33.4 pg (27.0-35.0); MCV 96.8 fL (80-100); MPV 9.1 fL (7.6-11.3); Monocytes % 10.5 % (3.3-12.3); RBC Red Blood Cell Count 3.39 M/uL (3.86-4.86)
[2018-07-09 11:55] LABS: Bilirubin Direct 0.1 mg/dL (0-0.2); Bilirubin Total 0.3 mg/dL (0.2-1.0); Potassium 3.7 mmol/L (3.5-5.1); Troponin (Emerg Dept Use Only) 0.02 ng/mL (0.0-0.045)
[2018-07-09 12:33] LABS: Urine Bacteria NONE SEEN /HPF (<20); Urine RBC <5 /HPF (NONE SEEN)
[2018-07-09 12:34] LABS: Urine Amorphous Sediment 1+ /HPF (NONE SEEN); Urine Culture Reflex Order NOT NEEDED; Urine Triple Phosphate Crystal MODERATE (NONE SEEN)
[2018-07-09 12:40] LABS: Urine White Blood Cell Casts OK
[2018-07-09 12:41] LABS: Blood Morphology Comment NOT SEEN (NOT SEEN); Platelet Estimate ADEQ
[2018-07-09] MEDS ORDERED: HYDROCODONE/APAP 10/325 TAB ONE (14:18)
--- NOTE | 2018-07-09 15:10 | RAD REPORT ---
EXAM DESCRIPTION: CT - Abdomen Pelvis W Contrast - 07/09/2018 2:55 pm CLINICAL HISTORY: Abdominal pain. Nephrostomy tube placement. Breast cancer COMPARISON: 2014 TECHNIQUE: Computed axial tomography of the abdomen pelvis was obtained. 100 cc Isovue-300 was admin istered intravenously. Oral contrast was not requested which limits evaluation of bowel. All CT scans are performed using dose optimization technique as appropriate and may include automated exposure control or mA/KV adjustment according to patient size. FINDINGS: Bilateral percutaneous nephrostomy tubes are in place without hydronephrosis. A left urete ral stent is in place. A fluid-filled bladder is not identified. A hysterectomy is been performed. There is ill-defined soft tissue at the hysterectomy site. There is no evidence of diverticulitis. The liver, spleen, pancreas and adrenals appear unremarkable. Postsurgical changes involve the spine. Insufficiency sacral fracture is noted. Insufficiency fracture of the left ilium is noted. Bold right pubic bone fracture is present. A moderate amount of stool is present throughout the colon 1 IMPRESSION: Bilateral percutaneous nephrostomy tubes and a left ureteral stent in place. No hydronep hrosis. A hysterectomy has been performed. There is ill-defined soft tissue at the surgical bed. This could r epresent recurrent neoplasm or inflammation. Insufficiency sacral fracture
[2018-07-09 15:20] LABS: Urine Blood NEGATIVE (NEG); Urine Glucose NEGATIVE (NEG); Urine Protein 2+ (NEG); Urine pH >8.5 (5.0-7.0)
--- NOTE | 2018-07-09 15:33 | EDPHYS ---
Physician Documentation [facility] Name: Mary Archuleta Age: 77 yrs Sex: Female : 1940 Arrival Date: 07/09/2018 Time: 10:44 Bed 14 Private MD: Out, [facility] ED Physician Fran Ruvalcaba HPI: 07/09 11:06 This 77 yrs old Female presents to ER via Wheelchair with complaints of Low jmm Back Pain, Chills. 11:06 The patient presents with pain that is acute. The symptoms are located in the low back. jmm The pain does not radiate. Onset: The symptoms/episode began/occurred gradually, this morning. Modifying factors: The patient symptoms are alleviated by hydrocodone, the patient symptoms are aggravated by movement. Associated signs and symptoms: Pertinent positives: fever, Pertinent negatives: vomiting. This is a 77 year old female with a history of DM, cervical cancer that presents to the ED with lower back pain and fever beginning earlier today. patient states recently had urine drawn by home health yesrday. Denies chest pain, shortness of breath. Patient is 1 year s/p bilateral nephrostomy tube insertion. . Historical: - Allergies: 11:02 Lisinopril; aj - Home Meds: 11:02 fluoxetine 10 mg Oral cap 1 caps once daily [Active]; hydrocodone-acetaminophen 10-325 aj mg Oral tab 2 tab twice a day [Active]; Furosemide Oral [Active]; metformin 500 mg Oral Tb24 1 tab once daily [Active]; metoprolol succinate Oral [Active]; omeprazole 40 mg Oral cpDR 1 cap once daily [Active]; Potassium Chloride Oral [Active]; pravastatin 20 mg Oral tab 1 tab once daily [Active]; vit D3 [Active]; - PMHx: 11:02 BREAST CA; cervical cancer; Diabetes - NIDDM; Hyperlipidemia; Hypertension; aj Hypothyroidism; - PSHx: 11:02 back sx; Lumpectomy; Hysterectomy; Knee surgery; hip sx; nephrostomy tubes; aj - Immunization history:: Adult Immunizations up to date. - Social history:: Smoking status: Patient/guardian denies using tobacco. - Ebola Screening: : Patient negative for fever greater than or equal to 101.5 degrees Fahrenheit, and additional compatible Ebola Virus Disease symptoms Patient denies exposure to infectious person Patient denies travel to an Ebola-affected area in the 21 days before illness onset No symptoms or risks identified at this time. ROS: 11:06 Cardiovascular: Negative for chest pain, palpitations, and edema. m 11:06 Abdomen/GI: Negative for abdominal pain, nausea, vomiting, diarrhea, and constipation. 11:06 Constitutional: Positive for fever. 11:06 Respiratory: Positive for shortness of breath. 11:06 Back: Positive for 11:06 Back: Positive for flank pain, bilaterally. [facility] 11:06 Neuro: Negative for headache, weakness, numbness, tingling, and seizure. [facility] 11:06 All other systems are negative. Exam: 11:06 Head/Face: atraumatic. Chest/axilla: Normal chest wall appearance and motion. [facility] Cardiovascular: Regular rate and rhythm. No edema appreciated Respiratory: Normal respirations, no respiratory distress appreciated 11:06 Constitutional: The patient appears alert, awake, uncomfortable. 11:06 Abdomen/GI: Inspection: abdomen appears normal, Bowel sounds: normal, Palpation: abdomen is soft and non-tender. 11:06 Back: CVA tenderness, that is moderate, is noted bilaterally, bilateral nephrostomy tubes noted both containing urine. 11:06 Musculoskeletal/extremity: ROM: intact in all extremities. 11:06 Skin: Appearance: Color: normal in color. 11:06 Neuro: Orientation: is normal, Mentation: is normal, Memory: is normal. Vital Signs: 11:02 BP 135 / 53; Pulse 78; Resp 16; Temp 103.3(O); Pulse Ox 94% on R/A; Weight 53.52 kg; aj Height 5 ft. 2 in. (157.48 cm); 12:22 BP 138 / 66; Pulse 79; Resp 18; Temp 100.5(O); Pulse Ox 95% on R/A; Pain 0/10; em 13:17 BP 137 / 65; Pulse 83; Resp 16; Temp 99.2; Pulse Ox 94% on R/A; Pain 0/10; em 14:15 BP 150 / 83; Pulse 83; Resp 24; Temp 100.3(O); Pulse Ox 88% on R/A; em 15:39 BP 126 / 55; Pulse 81; Resp 20; Temp 101.8(O); Pulse Ox 93% on R/A; Pain 0/10; em 16:56 BP 123 / 54; Pulse 70; Resp 18; Temp 100.4(O); Pulse Ox 97% on R/A; Pain 3/10; ja1 18:14 BP 122 / 53; Pulse 66; Resp 17; Temp 99.7(O); Pulse Ox 97% on R/A; mh5 19:30 BP 120 / 56; Pulse 70; Resp 20; Pulse Ox 97% on R/A; tl2 11:02 Body Mass Index 21.58 (53.52 kg, 157.48 cm) aj MDM: 11:06 Patient medically screened. [facility] 15:27 Data reviewed: vital signs, nurses notes. Counseling: I had a detailed discussion with [facility] the patient and/or guardian regarding: the historical points, exam findings, and any diagnostic results supporting the discharge/admit diagnosis, lab results, radiology results, the need for outpatient follow up, to return to the emergency department if symptoms worsen or persist or if there are any questions or concerns that arise at home. 17:36 ED course: i discussed the patient with Dr. Mcwilliams whom accepted admission. [facility] 07/09 11:08 Order name: Amylase, Serum; Complete Time: 12:13 [facility] 07/09 11:08 Order name: Basic Metabolic Panel; Complete Time: 12:13 [facility] 07/09 11:08 Order name: CBC with Diff; Complete Time: 12:58 [facility] 07/09 11:08 Order name: Creatinine for Radiology; Complete Time: 12:13 [facility] 07/09 11:08 Order name: Hepatic Function; Complete Time: 12:13 [facility] 07/09 11:08 Order name: Lipase; Complete Time: 12:13 [facility] 07/09 11:08 Order name: Urine Microscopic Only; Complete Time: 12:58 [facility] 07/09 11:08 Order name: Blood Culture Adult (2) [facility] 07/09 11:08 Order name: Lactate; Complete Time: 12:13 [facility] 07/09 11:08 Order name: Procalcitonin; Complete Time: 12:13 [facility] 07/09 11:08 Order name: Troponin (emerg Dept Use Only); Complete Time: 12:13 [facility] 07/09 11:42 Order name: CBC Smear Scan; Complete Time: 12:58 [facility] 07/09 12:00 Order name: Urine Dipstick--Ancillary (enter results); Complete Time: 15:23 eb 07/09 13:11 Order name: CT Abd/Pelvis - W/Contrast; Complete Time: 15:14 [facility] 07/09 11:08 Order name: IV Saline Lock; Complete Time: 11:31 [facility] 07/09 11:08 Order name: Labs collected and sent; Complete Time: 11:31 [facility] 07/09 11:08 Order name: Urine Dipstick-Ancillary (obtain specimen); Complete Time: 11:57 [facility] 07/09 15:46 Order name: Chest Pa And Lat (2 Views) XRAY; Complete Time: 17:10 [facility] Administered Medications: 11:57 Drug: Lactated Ringers Solution 1500 ml Route: IV; Rate: 1500 TKO; Site: right forearm; em 13:00 Follow up: IV Status: Completed infusion; IV Intake: 1500ml ja1 12:05 Drug: Cefepime 1 grams Route: IVPB; Rate: 200 ml/hr; Infused Over: 30 mins; Site: right em forearm; 13:00 Follow up: Response: No adverse reaction; IV Status: Completed infusion; IV Intake: ja1 100ml 14:17 Drug: [place] 10 mg-325 mg 2 tabs Route: PO; iw 14:35 Follow up: Response: No adverse reaction; Pain is decreased em 15:54 Drug: Motrin 600 mg Route: PO; em 17:49 Follow up: Response: No adverse reaction; Temperature is decreased em 18:56 Drug: Meropenem 1 grams Route: IV; Rate: calculated rate; Site: right forearm; em 20:22 Follow up: IV Status: Completed infusion tl2 19:00 Drug: FLUoxetine 10 mg Route: PO; em 20:22 Follow up: Response: No adverse reaction tl2 19:00 Drug: Lipitor 10 mg Route: PO; em 20:22 Follow up: Response: No adverse reaction tl2 Disposition: 07/09/18 17:37 Hospitalization ordered by Олег Mcwilliams for Observation. Preliminary diagnosis are Urinary tract infection, site not specified, Fever, unspecified. - Bed requested for Telemetry/MedSurg (observation). - Status is Observation. tl2 - Condition is Stable. - Problem is an acute exacerbation. - Symptoms are unchanged. UTI on Admission? Yes Signatures: Dispatcher [employer] EDMS Ericka Rollins RN RN Danny Mcleod PA PA [facility] Josafat Lion, MOTORSPORTS TECHNICIAN MOTORSPORTS TECHNICIAN em Juju Shelton RN Keren Loyd RN RN tl2 Maria Del Rosario Palacios Jose RN ja1 Corrections: (The following items were deleted from the chart) 15:44 15:32 07/09/2018 15:32 Discharged to Home. Impression: Urinary tract infection, site jmm not specified; Pyelonephritis. Condition is Stable. Forms are Medication Reconciliation Form, Thank You Letter, Antibiotic Education, Prescription Opioid Use. Follow up: Private Physician; When: 2 - 3 days; Reason: Recheck today's complaints, Continuance of care, Re-evaluation by your physician. [facility] 15:45 15:44 07/09/2018 15:32 Discharged to Home. Impression: Pyelonephritis. Condition is [facility] Stable. Discharge Instructions: Pyelonephritis, Adult, Urinary Tract Infection, Adult. Prescriptions for Zofran 4 mg Oral Tablet - take 1 tablet by ORAL route every 12 hours As needed; 20 tablet, cefdinir 300 mg Oral capsule - take 1 capsule by ORAL route every 12 hours for 10 days; 20 capsule. and Forms are Medication Reconciliation Form, Thank You Letter, Antibiotic Education, Prescription Opioid Use. Follow up: Private Physician; When: 2 - 3 days; Reason: Recheck today's complaints, Continuance of care, Re-evaluation by your physician. [facility] 18:13 17:37 Hospitalization Ordered by Олег Mcwilliams DO for Observation. Preliminary eb diagnosis is Urinary tract infection, site not specified; Fever, unspecified. Bed requested for Telemetry/MedSurg (observation). Status is Observation. Condition is Stable. Problem is an acute exacerbation. Symptoms are unchanged. UTI on Admission? Yes. [facility] 20:25 18:13 07/09/2018 17:37 Hospitalization Ordered by Олег Mcwilliams DO for Observation. tl2 Preliminary diagnosis is Urinary tract infection, site not specified; Fever, unspecified. Bed requested for Telemetry/MedSurg (observation). Status is Observation. Condition is Stable. Problem is an acute exacerbation. Symptoms are unchanged. UTI on Admission? Yes. eb
--- NOTE | 2018-07-09 15:33 | ER ---
Nurse's Notes [facility] Name: Mary Archuleta Age: 77 yrs Sex: Female : 1940 Arrival Date: 07/09/2018 Time: 10:44 Bed 14 Private MD: Out, [facility] Diagnosis: Urinary tract infection, site not specified;Fever, unspecified Presentation: 07/09 11:00 Presenting complaint: Patient states: Pain in back at nephrostomy site since this AM. 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 Transition of care: patient was not received from another setting of care. Onset of symptoms was July 09, 2018. Risk Assessment: Do you want to hurt yourself or someone else? Patient reports no desire to harm self or others. Initial Sepsis Screen: Does the patient meet any 2 criteria? RR > 20 per min. Temp <36.0*C (96.8*F)) or > 38.3*C (100.4*F). Yes Does the patient have a suspected source of infection? Yes: Dysuria/Frequency/Urgency/UTI. Care prior to arrival: None. 11:00 Method Of Arrival: Wheelchair aj 11:00 Acuity: SILVERIO 2 aj Triage Assessment: 11:02 General: Appears in no apparent distress. comfortable, Behavior is calm, cooperative, aj appropriate for age. Pain: Complains of pain in mid back area. Neuro: Level of Consciousness is awake, alert, obeys commands, Oriented to person, place, time, situation, Appropriate for age. Respiratory: Airway is patent Respiratory effort is even, unlabored, Respiratory pattern is regular, symmetrical. : Reports pain in lower back. Derm: Skin is intact, is healthy with good turgor, Skin is diaphoretic, Skin is flushed, Skin temperature is hot. Historical: - Allergies: 11: Lisinopril; aj - Home Meds: 11: fluoxetine 10 mg Oral cap 1 caps once daily [Active]; hydrocodone-acetaminophen 10-325 aj mg Oral tab 2 tab twice a day [Active]; Furosemide Oral [Active]; metformin 500 mg Oral Tb24 1 tab once daily [Active]; metoprolol succinate Oral [Active]; omeprazole 40 mg Oral cpDR 1 cap once daily [Active]; Potassium Chloride Oral [Active]; pravastatin 20 mg Oral tab 1 tab once daily [Active]; vit D3 [Active]; - PMHx: 11:02 BREAST CA; cervical cancer; Diabetes - NIDDM; Hyperlipidemia; Hypertension; aj Hypothyroidism; - PSHx: 11:02 back sx; Lumpectomy; Hysterectomy; Knee surgery; hip sx; nephrostomy tubes; aj - Immunization history:: Adult Immunizations up to date. - Social history:: Smoking status: Patient/guardian denies using tobacco. - Ebola Screening: : Patient negative for fever greater than or equal to 101.5 degrees Fahrenheit, and additional compatible Ebola Virus Disease symptoms Patient denies exposure to infectious person Patient denies travel to an Ebola-affected area in the 21 days before illness onset No symptoms or risks identified at this time. Screenin:23 Abuse screen: Denies threats or abuse. Nutritional screening: No deficits noted. em Tuberculosis screening: No symptoms or risk factors identified. Fall Risk None identified. Assessment: 11:30 General: Appears in no apparent distress. comfortable, Behavior is calm, cooperative. em Pain: Denies pain. Neuro: Level of Consciousness is awake, alert, obeys commands, Oriented to person, place, time, situation. Cardiovascular: Denies chest pain, nausea, Capillary refill < 3 seconds. Respiratory: Airway is patent Respiratory effort is even, unlabored, Respiratory pattern is regular, symmetrical. GI: Abdomen is flat, Abd is soft and non tender X 4 quads. : alex. nephrostomy tubes noted, dressing clean, dry and intact, alex. leg bags noted. EENT: No signs and/or symptoms were reported regarding the EENT system. Derm: Skin is intact, Skin is pink, warm \T\ dry. Musculoskeletal: Range of motion: intact in all extremities. 11:50 Reassessment: Patient appears in no apparent distress at this time. I agree with above iw assessment by Josafat Lion LVN. 12:27 Reassessment: Patient appears in no apparent distress at this time. Patient and/or em family updated on plan of care and expected duration. Pain level reassessed. Patient is alert, oriented x 3, equal unlabored respirations, skin warm/dry/pink. Patient denies pain at this time. 13:18 Reassessment: Patient appears in no apparent distress at this time. Patient and/or em family updated on plan of care and expected duration. Pain level reassessed. Patient is alert, oriented x 3, equal unlabored respirations, skin warm/dry/pink. Patient denies pain at this time. Patient states feeling better. 14:14 Reassessment: pt c/o SOB, denies CP, provider at bedside, reports pain in back and em request to take home pain meds, new medication orders received, SPO2 88% placed on 2L. 14:35 Reassessment: Patient appears in no apparent distress at this time. Patient and/or em family updated on plan of care and expected duration. Pain level reassessed. Patient is alert, oriented x 3, equal unlabored respirations, skin warm/dry/pink. pt symptoms improved, will be transported to CT via stretcher Patient states feeling better. 15:37 Reassessment: Patient appears in no apparent distress at this time. Patient and/or em family updated on plan of care and expected duration. Pain level reassessed. Patient is alert, oriented x 3, equal unlabored respirations, skin warm/dry/pink. provider at bedside, pt reports wanting to go home Patient denies pain at this time. Patient states feeling better. 16:30 Reassessment: Patient appears in no apparent distress at this time. Patient and/or em family updated on plan of care and expected duration. Pain level reassessed. Patient is alert, oriented x 3, equal unlabored respirations, skin warm/dry/pink. 17:31 Reassessment: Patient appears in no apparent distress at this time. Patient and/or em family updated on plan of care and expected duration. Pain level reassessed. Patient is alert, oriented x 3, equal unlabored respirations, skin warm/dry/pink. Dr. Mcwilliams at bedside Patient states feeling better. 18:17 Reassessment: Patient appears in no apparent distress at this time. Patient and/or em family updated on plan of care and expected duration. Pain level reassessed. Patient is alert, oriented x 3, equal unlabored respirations, skin warm/dry/pink. attempted to give report floor, unable at this time. 19:20 Reassessment: Patient appears in no apparent distress at this time. Patient and/or tl2 family updated on plan of care and expected duration. Pain level reassessed. Patient is alert, oriented x 3, equal unlabored respirations, skin warm/dry/pink. Awaiting to call report after shift change. 19:51 Reassessment: Report given to TASHA Baeza. Will empty leg bags before taking patient tl2 upstairs. Vital Signs: 11:02 BP 135 / 53; Pulse 78; Resp 16; Temp 103.3(O); Pulse Ox 94% on R/A; Weight 53.52 kg; aj Height 5 ft. 2 in. (157.48 cm); 12:22 BP 138 / 66; Pulse 79; Resp 18; Temp 100.5(O); Pulse Ox 95% on R/A; Pain 0/10; em 13:17 BP 137 / 65; Pulse 83; Resp 16; Temp 99.2; Pulse Ox 94% on R/A; Pain 0/10; em 14:15 BP 150 / 83; Pulse 83; Resp 24; Temp 100.3(O); Pulse Ox 88% on R/A; em 15:39 BP 126 / 55; Pulse 81; Resp 20; Temp 101.8(O); Pulse Ox 93% on R/A; Pain 0/10; em 16:56 BP 123 / 54; Pulse 70; Resp 18; Temp 100.4(O); Pulse Ox 97% on R/A; Pain 3/10; ja1 18:14 BP 122 / 53; Pulse 66; Resp 17; Temp 99.7(O); Pulse Ox 97% on R/A; mh5 19:30 BP 120 / 56; Pulse 70; Resp 20; Pulse Ox 97% on R/A; tl2 11:02 Body Mass Index 21.58 (53.52 kg, 157.48 cm) ED Course: 10:44 Patient arrived in ED. sb2 10:45 Out, [facility] is Private Physician. sb2 11:01 Triage completed. aj 11:01 Danny Lo PA is PHCP. [facility] 11:01 Fran Ruvalcaba MD is Attending Physician. jmm 11:02 Arm band placed on left wrist. Patient placed in an exam room, on a stretcher. aj 11:14 Josafat Lion LVN is Primary Nurse. em 11:20 Initial lab(s) drawn, by me, sent to lab. First set of blood cultures drawn. Inserted em1 saline lock: 20 gauge in right forearm, using aseptic technique. Blood collected. 11:50 Second set of blood cultures drawn. em1 12:23 Patient has correct armband on for positive identification. Placed in gown. Bed in low em position. Call light in reach. Adult w/ patient. 13:30 CT Abd/Pelvis - W/Contrast In Process Unspecified. EDMS 16:06 X-ray completed. Patient tolerated procedure well. az 16:08 Chest Pa And Lat (2 Views) XRAY In Process Unspecified. EDMS 17:17 No provider procedures requiring assistance completed. em 17:37 Олег Mcwilliams DO is Hospitalizing Provider. jmm 19:15 Report given to TASHA Veliz. em 20:21 Patient admitted, IV remains in place. tl2 Administered Medications: 11:57 Drug: Lactated Ringers Solution 1500 ml Route: IV; Rate: 1500 TKO; Site: right forearm; em 13:00 Follow up: IV Status: Completed infusion; IV Intake: 1500ml ja1 12:05 Drug: Cefepime 1 grams Route: IVPB; Rate: 200 ml/hr; Infused Over: 30 mins; Site: right em forearm; 13:00 Follow up: Response: No adverse reaction; IV Status: Completed infusion; IV Intake: ja1 100ml 14:17 Drug: Coburn 10 mg-325 mg 2 tabs Route: PO; iw 14:35 Follow up: Response: No adverse reaction; Pain is decreased em 15:54 Drug: Motrin 600 mg Route: PO; em 17:49 Follow up: Response: No adverse reaction; Temperature is decreased em 18:56 Drug: Meropenem 1 grams Route: IV; Rate: calculated rate; Site: right forearm; em 20:22 Follow up: IV Status: Completed infusion tl2 19:00 Drug: FLUoxetine 10 mg Route: PO; em 20:22 Follow up: Response: No adverse reaction tl2 19:00 Drug: Lipitor 10 mg Route: PO; em 20:22 Follow up: Response: No adverse reaction tl2 Intake: 13:00 IV: 1500ml; Total: 1500ml. ja1 13:00 IV: 100ml; Total: 1600ml. ja1 20:18 leg bags connected to nephrostomy tl2 Output: 20:18 Urine: 600ml (Voided); Total: 600ml. tl2 20:18 leg bags connected to nephrostomy tl2 Outcome: 15:32 Discharge ordered by . mary 17:37 Decision to Hospitalize by Provider. mary 20:20 Admitted to Tele accompanied by tech, family with patient, via stretcher, room 421, tl2 with chart, Report called to Felisha 20:20 Condition: stable 20:20 Discharge instructions given to patient, family, Instructed on the need for admit. 20:25 Patient left the ED. tl2 Signatures: Dispatcher [employer] Ericka Wilson, RN RN Danny Mcleod PA PA Josafat Drew, TOOL GRINDING MACHINE OPERATOR TOOL GRINDING MACHINE OPERATOR em Juju Shelton, RN TASHA iw Luis Alberto Toth1 Keren Cottrell RN RN 2 Fatimah Toth [facility] Moe Moran, RN RN ja1 Sivan Cuevas 2 Lisa Eli Corrections: (The following items were deleted from the chart) 11:03 11:02 Derm: Skin is intact, is healthy with good turgor, Skin is pink, warm \T\ dry. aj normal, aj 14:22 14:14 Reassessment: pt c/o SOB, denies CP, provider at bedside, reports pain in back em and request to take home pain meds, new medication orders received em
[2018-07-09] MEDS ORDERED: IBUPROFEN 200 MG TAB PO ONE (15:49)
[2018-07-09] MEDS ORDERED: IBUPROFEN 400 MG TAB ONE (15:49)
--- NOTE | 2018-07-09 16:55 | RAD REPORT ---
EXAM DESCRIPTION: RAD - Chest Pa And Lat (2 Views) - 07/09/2018 4:08 pm CLINICAL HISTORY: Abdominal pain, back pain, breast cancer history, cervical cancer history COMPARISON: March 2017 TECHNIQUE: PA and lateral views of the chest were obtained. FINDINGS: The lungs are extensively fibrotic. This pattern has not changed significantly over the in terval. No superimposed failure, infiltrate or mass. Given the severity of chronic disease, minimal e frank or infiltrate could be masked. Heart size is normal and central vasculature is within normal limits. No pleural effusion or pneu mothorax seen. No acute bony finding noted. No aortic abnormality. IMPRESSION: Chronic interstitial lung disease not clearly different from comparison.
[2018-07-09] MEDS ORDERED: ONDANSETRON 4 MG/2 ML VIAL IV PRN (17:57)
[2018-07-09] MEDS ORDERED: TRAMADOL HCL 50 MG TAB PO PRN (17:57)
[2018-07-09] MEDS ORDERED: ACETAMINOPHEN 500 MG TAB PO PRN (17:57)
--- NOTE | 2018-07-09 18:10 | P.HP ---
Certification for Inpatient Patient admitted to: Inpatient With expected LOS: >2 Midnights Patient will require the following post-hospital care: Other Practitioner: I am a practitioner with admitting privileges, knowledge of patient current condition, hospital course, and medical plan of care. Services: Services provided to patient in accordance with Admission requirements found in Title 42 Section 412.3 of the Code of Federal Regulations Patient History Date of Service: 07/09/18 Primary Care Provider: Dr. Beltran([place]); Dr. Buchanan(Urology) Reason for admission: Chills History of Present Illness: 77 year old female presented emergency room with chills. Patient is suspected that she had a UTI. Patient with history of cervical cancer, hypertension, depression, hyperlipidemia. She now has percutaneous nephrostomy tubes in place after surgery for cervical cancer in the distant past. Patient has had multiple recurrent UTIs requiring IV antibiotic therapies in the past. She was seen by home health recently. Urine culture was obtained on 2017. Gram negative rods are pending. Prior culture done in March of 2018 showed a multi resistant bacteria. Patient denied any significant chest pain, shortness of breath. Patient did report a fever of 103. In the ER patient was evaluated. White count 14.4, hemoglobin 5th 11.3. Sodium 140, potassium 3.7. Lactic acid and pro calcitonin unremarkable. Chest x-ray showed chronic interstitial changes. CT abdomen showed no hydronephrosis. Bilateral percutaneous nephrostomy tubes in place. Left ureteral stent in place. Chronic changes noted to the pelvic area. Due to the current findings and recent culture patient was admitted for treatment. When I saw the patient ER, she appeared comfortable. Patient has multiple medical problems including hypertension, hyperlipidemia, prior cervical cancer with hysterectomy, radiation. Patient now with percutaneous bilateral nephrostomy tubes. Patient does not smoke. She does drink on a regular basis Allergies lisinopril Allergy (Verified 03/11/17 12:02) coughing Home medications list reviewed: Yes Home Medications: Anastrozole 1 mg PO DAILY 10/11/15 Fluoxetine HCl 10 mg PO DAILY 10/11/15 Hydrocodone/Acetaminophen [Hydrocodon-Acetaminophn 10-325] 2 tab PO BID PRN 08/16 Pravastatin Sodium [Pravachol] 20 mg PO BEDTIME 10/11/15 Oxybutynin Chloride 2 tab PO DAILY 03/10/17 Cholecalciferol (Vitamin D3) [Vitamin D 5,000 IU Cap*] 5,000 unit PO DAILY #30 cap 03/16/17 Insulin Glargine,Hum.rec.anlog [Lantus] 10 unit SQ BEDTIME #10 ml 03/16/17 Levothyroxine [Synthroid*] 0.05 mg PO [id number] #30 03/16/17 Magnesium Oxide [Mag 0X*] 400 mg PO BID #60 tab 03/16/17 Na Bicarb Tab [Sodium Bicarb 325 MG Tab*] 650 mg PO BID #60 tab 03/16/17 levoFLOXacin [Levaquin] 500 mg PO DAILY #14 tab 03/16/17 - Past Medical/Surgical History Diabetic: No -: Hypertension -: Depression -: Arthritis -: Hyperlipidemia -: History of cervical cancer -: History of breast, radiation therapy -: History Recurrent complicated UTIs -: Bilateral nephrostomies in place -: Back surgery -: Right hip surgery -: Right breast lumpectomy -: Hysterectomy -: Bilateral percutaneous nephrostomies -: Left ureteral stent Psychosocial/ Personal History: Patient is a . She has 1 child. - Family History Father -: Heart disease, Diabetes Mother -: Cancer Notes: ovarian Sister -: Stroke - Social History Smoking Status: Never smoker Alcohol use: Yes CD- Drugs: No Caffeine use: Yes Place of Residence: Home Review of Systems General: Fever, Chills, As per HPI Eyes: Unremarkable ENT: Unremarkable Respiratory: Unremarkable Cardiovascular: Unremarkable Gastrointestinal: Unremarkable Genitourinary: As per HPI Musculoskeletal: Unremarkable Integumentary: Unremarkable Neurological: Unremarkable Lymphatics: Unremarkable Physical Examination - Physical Exam General: Alert, In no apparent distress, Oriented x3, Cooperative HEENT: Atraumatic, Normocephalic, PERRLA, Mucous membr. moist/pink Neck: Supple Respiratory: Clear to auscultation bilaterally, Normal air movement Cardiovascular: Normal pulses, Regular rate/rhythm Gastrointestinal: Normal bowel sounds, Soft and benign, Non-distended, Other ( Bilateral percutaneous nephrostomy tubes in place) Integumentary: No erythema, No warmth, No cyanosis, Other (Mild right lower extremity edema) Neurological: Normal speech, Normal strength at 5/5 x4 extr, Normal tone, Normal affect - Studies Laboratory Data (last 24 hrs) 07/09/18 11:20: Creatinine 1.00 07/09/18 11:20: WBC 14.4 H, Hgb 11.3 L, Hct 32.8 L, Plt Count 261 07/09/18 11:20: Sodium 140, Potassium 3.7, BUN 34 H, Creatinine 1.00, Glucose 127 H, Total Bilirubin 0.3, AST 26, ALT 22, Alkaline Phosphatase 69, Amylase 55 , Lipase 126 Assessment and Plan - Plan Impression: Recurrent complicated UTI likely requiring IV antibiotic therapy, likely multi resistant bacteria with history of bilateral percutaneous nephrostomy tubes Hypertension Hyperlipidemia Depression Mild renal insufficiency Plan: Patient will be admitted for IV antibiotic therapy. Await the urine culture results from 07/08/2018. Gram negative rods noted. Will start IV meropenem. Will order PICC line. Anticipate the patient will require IV antibiotic therapy for at least 7-10 days for multi resistant bacteria. services advisor consulted for likely need for IV antibiotic therapy at home. She has done this in the past. Urology has been consulted for further recommendation. Will continue with her prior medications for hypertension, hyperlipidemia, depression. Will provide IV fluids due to renal insufficiency. No hydronephrosis noted. Will provide medication for pain. Will reassess tomorrow. - Advance Directives Does patient have a Living Will: No Does patient have a Durable POA for Healthcare: No - Code Status/Comfort Care Code Status Assessed: Yes (Patient full code.) Time Spent Managing Pts Care (In Minutes): 55
[2018-07-09] MEDS: Meropenem 1,000 MG in NA CHLORIDE 0.9% 100 ML IV SCH (19:00)
[2018-07-09] MEDS: HYDROCODONE/APAP 10/325 TAB PO PRN (21:00)
[2018-07-09] MEDS: ATORVASTATIN 10 MG TAB PO SCH (21:00)
[2018-07-09] MEDS: ENOXAPARIN 40 MG/0.4 ML SQ SCH (21:13)
[2018-07-09] MEDS: NA CHLORIDE 0.9% 1,000 ML IV SCH (21:15)
[2018-07-09 23:22] VITALS: BMI 25.4
[2018-07-10] MEDS: Meropenem 1,000 MG in NA CHLORIDE 0.9% 100 ML IV SCH ×3 (00:45→16:46)
[2018-07-10] MEDS ORDERED: Meropenem 1000 MG/VIAL IV SCH (01:00)
[2018-07-10] MEDS: METOPROLOL TAR 25 MG TAB PO SCH (04:01)
[2018-07-10] MEDS: NA CHLORIDE 0.9% 1,000 ML IV SCH ×2 (04:02→14:26)
[2018-07-10] MEDS: HYDROCODONE/APAP 10/325 TAB PO PRN ×4 (04:02→22:40)
[2018-07-10 04:55] LABS: Absolute Lymphocytes (CBC) 0.8 K/uL (0.7-4.9); Absolute Monocytes 1.3 K/uL (0.1-1.3); Absolute Neutrophil 13.1 K/uL (1.8-8.0); Basophils % 0.2 % (0-1.3); Eosinophils % 0.1 % (0-4.4); Hematocrit 28.2 % (36.0-45.0); Lymphocytes % 5.1 % (15.3-44.8); MCH 34.5 pg (27.0-35.0); MCV 97.7 fL (80-100); MPV 9.5 fL (7.6-11.3); Monocytes % 8.3 % (3.3-12.3); RBC Red Blood Cell Count 2.88 M/uL (3.86-4.86)
[2018-07-10 05:10] LABS: Magnesium 1.7 mg/dL (1.8-2.4); Potassium 3.2 mmol/L (3.5-5.1)
[2018-07-10] MEDS ORDERED: MAGNESIUM SULFATE 1 gm IVPB 1 GM/100 ML BAG IV ONE (08:00)
[2018-07-10] MEDS: PANTOPRAZOLE 40MG TABLET PO SCH (08:25)
[2018-07-10] MEDS ORDERED: FLUOXETINE HCL 10 MG PO SCH (09:00)
--- NOTE | 2018-07-10 09:10 | P.DS ---
Admission Date: 07/09/18 Discharge Date: 07/10/18 Primary Care Provider: Dr. Beltran([place]); Dr. Buchanan(Urology) Disposition: ROUTINE DISCHARGE Discharge Condition: GOOD Reason for Admission: Chills Procedures: CT scan: COMPARISON: 2014 TECHNIQUE: Computed axial tomography of the abdomen pelvis was obtained. 100 cc Isovue-300 was administered intravenously. Oral contrast was not requested which limits evaluation of bowel. All CT scans are performed using dose optimization technique as appropriate and may include automated exposure control or mA/KV adjustment according to patient size. FINDINGS: Bilateral percutaneous nephrostomy tubes are in place without hydronephrosis. A left ureteral stent is in place. A fluid-filled bladder is not identified. A hysterectomy is been performed. There is ill-defined soft tissue at the hysterectomy site. There is no evidence of diverticulitis. The liver, spleen, pancreas and adrenals appear unremarkable. Postsurgical changes involve the spine. Insufficiency sacral fracture is noted. Insufficiency fracture of the left ilium is noted. Bold right pubic bone fracture is present. A moderate amount of stool is present throughout the colon 1 IMPRESSION: Bilateral percutaneous nephrostomy tubes and a left ureteral stent in place. No hydronephrosis. A hysterectomy has been performed. There is ill-defined soft tissue at the surgical bed. This could represent recurrent neoplasm or inflammation. Insufficiency sacral fracture Urine culture(07/08/2018): Positive for Pseudomonas aeruginosa. Multiple sensitivities noted Medical problem list: Complicated recurrent UTI with history of bilateral percutaneous nephrostomies and history of recurrent UTIs in the past requiring IV antibiotic therapy. Urine culture positive for Pseudomonas aeruginosa, multiple sensitivities noted. Mild renal insufficiency, resolved Hypertension Hyperlipidemia Anemia likely of chronic disease Hypokalemia Depression with anxiety History of cervical cancer with prior hysterectomy status post radiation therapy History of ureteral stent left side Insufficiency sacral fracture Chronic pain Brief History of Present Illness: 77 year old female presented emergency room with chills. Patient is suspected that she had a UTI. Patient with history of cervical cancer, hypertension, depression, hyperlipidemia. She now has percutaneous nephrostomy tubes in place after surgery for cervical cancer in the distant past. Patient has had multiple recurrent UTIs requiring IV antibiotic therapies in the past. She was seen by home health recently. Urine culture was obtained on 2017. Gram negative rods are pending. Prior culture done in March of 2018 showed a multi resistant bacteria. Patient denied any significant chest pain, shortness of breath. Patient did report a fever of 103. In the ER patient was evaluated. White count 14.4, hemoglobin 5th 11.3. Sodium 140, potassium 3.7. Lactic acid and pro calcitonin unremarkable. Chest x-ray showed chronic interstitial changes. CT abdomen showed no hydronephrosis. Bilateral percutaneous nephrostomy tubes in place. Left ureteral stent in place. Chronic changes noted to the pelvic area. Due to the current findings and recent culture patient was admitted for treatment. When I saw the patient ER, she appeared comfortable. Patient has multiple medical problems including hypertension, hyperlipidemia, prior cervical cancer with hysterectomy, radiation. Patient now with percutaneous bilateral nephrostomy tubes. Patient does not smoke. She does drink on a regular basis Hospital Course: Patient presented with fever. Patient was evaluated in the emergency room. Patient found to have UTI. Patient had a urine culture done on 07/08 by [facility]. Patient with history of bilateral percutaneous nephrostomies and a left ureteral stent. Patient has also has a history of recurrent UTIs in the past requiring IV antibiotic therapy. Patient is seen by urology at [facility]. Primary physician is in [place]. Patient had elevated white count. Pro calcitonin and lactic acid were within normal range. Patient was admitted for suspected complicated recurrent UTI likely requiring IV antibiotic therapy. During the course of her stay the patient improved. Urine culture was identified as Pseudomonas aeruginosa. Multiple sensitivities were identified. Patient desired to go home. No need for IV antibiotic therapy at this time. At discharge patient will continue with Levaquin 500 mg once daily for 10 days. Recommendation is for the patient follow up with her urologist this week to further monitor and address. Recommendation is to recheck urine culture in 10-14 days to monitor resolution. Prevention of UTIs will need to be enforced. Patient also sees Infectious Disease. Patient may follow up with infectious disease this week to further address as well. No need for IV antibiotic therapy at this time. Patient had mild renal insufficiency likely from UTI. Patient was given IV fluids. This improved. Recommendation is to recheck lab-BMP in 1 week to monitor her progress. Patient has hypertension. Patient will continue with her medication including metoprolol ER 25 mg daily. Recommendation is to maintain blood pressures less 150/80. Further adjustment can be done by her PCP. Patient has diabetes mellitus type 2 without the need for insulin therapy. Patient may continue with metformin 500 mg daily. Recommendation is to maintain blood sugars less than 140 fasting and less than 200 after meals. Further adjustment can be done by her PCP. Patient found to have hypokalemia. Patient is taking Lasix and potassium at home. This was replaced. At discharge she may continue with Lasix 20 mg daily and potassium supplement 20 mEq once daily. Recommendation is to recheck lab- BMP to monitor progress. Further adjustment can be done by her PCP. Patient has anemia likely of chronic disease to recheck lab-CBC in 1-2 weeks to monitor her progress. Patient with history of cervical cancer with prior hysterectomy. She also has received radiation in the past. Patient may follow up with oncology as directed. Patient with depression and anxiety. Patient may continue with her medication fluoxetine 10 mg daily. Patient has hyperlipidemia. Patient will continue with Pravachol 20 mg 1 pill once daily. Patient has GERD. Patient continue with Prilosec 40 mg 1 pill once daily. Patient has chronic pain. Patient will continue with [place] as directed. Vital Signs/Physical Exam: Temp Pulse Resp BP Pulse Ox 98.4 F 65 17 119/56 L 96 07/10/18 08:00 07/10/18 08:00 07/10/18 08:00 07/10/18 08:00 07/10/18 08:00 General: Alert, In no apparent distress, Oriented x3, Cooperative HEENT: Atraumatic Neck: Supple Respiratory: Clear to auscultation bilaterally, Normal air movement Cardiovascular: Normal pulses, Regular rate/rhythm Gastrointestinal: Normal bowel sounds, Soft and benign, Non-distended, No tenderness, No masses, No rebound, No guarding, Other (Bilateral percutaneous nephrostomy tubes in place.) Integumentary: No tenderness/swelling, No erythema, No warmth, No cyanosis Neurological: Normal speech, Normal strength at 5/5 x4 extr, Normal tone, Normal affect Laboratory Data at Discharge: WBC 15.2 K/uL (4.3-10.9) H 07/10/18 04:09 Hgb 9.9 g/dL (12.0-15.0) L 07/10/18 04:09 Hct 28.2 % (36.0-45.0) L 07/10/18 04:09 Plt Count 205 K/uL (152-406) D 07/10/18 04:09 Sodium 140 mmol/L (136-145) 07/10/18 04:09 Potassium 3.2 mmol/L (3.5-5.1) L 07/10/18 04:09 BUN 28 mg/dL (7-18) H 07/10/18 04:09 Creatinine 0.90 mg/dL (0.55-1.3) 07/10/18 04:09 Glucose 93 mg/dL (74-106) 07/10/18 04:09 Magnesium 1.7 mg/dL (1.8-2.4) L 07/10/18 04:09 Total Bilirubin 0.3 mg/dL (0.2-1.0) 07/09/18 11:20 AST 26 U/L (15-37) 07/09/18 11:20 ALT 22 U/L (12-78) 07/09/18 11:20 Alkaline Phosphatase 69 U/L (45-117) 07/09/18 11:20 Amylase 55 U/L (25-115) 07/09/18 11:20 Lipase 126 U/L (73-393) 07/09/18 11:20 Home Medications: Fluoxetine HCl 10 mg PO DAILY 10/11/15 Hydrocodone/Acetaminophen [Hydrocodon-Acetaminophn 10-325] 2 tab PO Q6H PRN 08/16 Pravastatin Sodium [Pravachol] 20 mg PO BEDTIME 10/11/15 Cholecalciferol (Vitamin D3) [Vitamin D3] 2 cap PO DAILY 07/09/18 Furosemide 20 mg PO DAILY 07/09/18 Metformin HCl 500 mg PO DAILY 07/09/18 Metoprolol Succinate 25 mg PO DAILY 07/09/18 Omeprazole [Prilosec] 40 mg PO DAILY 07/09/18 Potassium Chloride 20 meq PO DAILY 07/09/18 Patient Discharge Instructions: 1. Patient will need a follow up with a PCP within 1 week to follow up this hospitalization. 2. Patient presented with fever. Patient was evaluated in the emergency room. Patient found to have UTI. Patient had a urine culture done on 07/[address] scan showed no hydronephrosis. Patient with history of bilateral percutaneous nephrostomies and a left ureteral stent. Patient has also has a history of recurrent, complicated UTIs in the past requiring IV antibiotic therapy. Patient is seen by urology at [facility]. Primary physician is in [place]. Patient had elevated white count. Pro calcitonin and lactic acid were within normal range. Patient was admitted for suspected complicated recurrent UTI likely requiring IV antibiotic therapy. During the course of her stay the patient improved. Urine culture was identified as Pseudomonas aeruginosa. Multiple sensitivities were identified. Patient desired to go home. No need for IV antibiotic therapy at this time. At discharge patient will continue with Levaquin 500 mg once daily for 10 days. Recommendation is for the patient follow up with her urologist this week to further monitor and address. Recommendation is to recheck urine culture in 10-14 days to monitor resolution. Prevention of UTIs will need to be enforced. Patient also sees Infectious Disease. Patient may follow up with infectious disease this week to further address as well. No need for IV antibiotic therapy at this time. 3. Patient had mild renal insufficiency likely from UTI. Patient was given IV fluids. This improved. Recommendation is to recheck lab-BMP in 1 week to monitor her progress. 4. Patient has hypertension. Patient will continue with her medication including metoprolol ER 25 mg daily. Recommendation is to maintain blood pressures less 150/80. Further adjustment can be done by her PCP. 5. Patient has diabetes mellitus type 2 without the need for insulin therapy. Patient may continue with metformin 500 mg daily. Recommendation is to maintain blood sugars less than 140 fasting and less than 200 after meals. Further adjustment can be done by her PCP. 6. Patient found to have hypokalemia. Patient is taking Lasix and potassium at home. This was replaced. At discharge she may continue with Lasix 20 mg daily and potassium supplement 20 mEq once daily. Recommendation is to recheck lab-BMP to monitor progress. Further adjustment can be done by her PCP. 7. Patient has anemia likely of chronic disease to recheck lab-CBC in 1-2 weeks to monitor her progress. 8. Patient with history of cervical cancer with prior hysterectomy. She also has received radiation in the past. Patient may follow up with oncology as directed. 9. Patient with depression and anxiety. Patient may continue with her medication fluoxetine 10 mg daily. 10. Patient has hyperlipidemia. Patient will continue with Pravachol 20 mg 1 pill once daily. 11. Patient has GERD. Patient continue with Prilosec 40 mg 1 pill once daily. 12. Patient has chronic pain. Patient will continue with [place] as directed. Diet: ADA Activity: Fall precautions Time spent managing pt's care (in minutes): 55
[2018-07-10] MEDS: ENOXAPARIN 40 MG/0.4 ML SQ SCH (09:24)
[2018-07-10] MEDS: VITAMIN D 1000 UNIT TAB PO SCH (09:25)
[2018-07-10] MEDS: POTASSIUM CL SA 10 MEQ TAB PO SCH (09:25)
[2018-07-10] MEDS: FUROSEMIDE 20 MG TABLET PO SCH (09:26)
[2018-07-10] MEDS: FLUOXETINE 10 MG CAP PO SCH (11:37)
--- NOTE | 2018-07-10 12:08 | RAD REPORT ---
EXAM DESCRIPTION: RAD - Chest Single View - 07/10/2018 9:37 am CLINICAL HISTORY: PICC line placement COMPARISON: Chest Pa And Lat (2 Views) dated 07/09/2018; Chest Pa And Lat (2 Views) dated 03/20/2017; C HEST SINGLE VIEW dated 10/11/2015 FINDINGS: Portable chest was obtained following placement of a right upper extremity PICC line. The catheter tip projects over the SVC..
[2018-07-10] MEDS: ATORVASTATIN 10 MG TAB PO SCH (20:30)
[2018-07-10] MEDS ORDERED: HOME MED 1 EA UNK (Pravastatin Sodium [Pravachol] 20 MG) PO SCH (21:00)
[2018-07-11] MEDS: NA CHLORIDE 0.9% 1,000 ML IV SCH
[2018-07-11] MEDS: Meropenem 1,000 MG in NA CHLORIDE 0.9% 100 ML IV SCH (00:19)
[2018-07-11] MEDS: METOPROLOL TAR 25 MG TAB PO SCH (04:31)
[2018-07-11] MEDS: HYDROCODONE/APAP 10/325 TAB PO PRN ×4 (04:31→23:37)
[2018-07-11 05:06] LABS: Absolute Monocytes 1.1 K/uL (0.1-1.3); Absolute Neutrophil 8.6 K/uL (1.8-8.0); Basophils % 0.3 % (0-1.3); Eosinophils % 0.6 % (0-4.4); Hematocrit 28.3 % (36.0-45.0); Lymphocytes % 9.5 % (15.3-44.8); MCH 33.7 pg (27.0-35.0); MCV 97.8 fL (80-100); MPV 9.4 fL (7.6-11.3); Monocytes % 10.5 % (3.3-12.3); RBC Red Blood Cell Count 2.89 M/uL (3.86-4.86)
[2018-07-11 05:30] LABS: Magnesium 1.9 mg/dL (1.8-2.4); Potassium 3.7 mmol/L (3.5-5.1)
[2018-07-11] MEDS: FUROSEMIDE 20 MG TABLET PO SCH (09:08)
[2018-07-11] MEDS: PANTOPRAZOLE 40MG TABLET PO SCH (09:08)
[2018-07-11] MEDS: VITAMIN D 1000 UNIT TAB PO SCH (09:09)
[2018-07-11] MEDS: POTASSIUM CL SA 10 MEQ TAB PO SCH (09:09)
[2018-07-11] MEDS: ENOXAPARIN 40 MG/0.4 ML SQ SCH (09:09)
[2018-07-11] MEDS: Levofloxacin500mg IV 500 MG/100 ML BAG IV SCH (09:11)
--- NOTE | 2018-07-11 09:24 | P.PN ---
Subjective Date of Service: 07/11/18 Primary Care Provider: Dr. Beltran([place]); Dr. Buchanan(Urology) Chief Complaint: Chills Subjective: Doing well (Patient doing well. Discharge held yesterday due to the abnormal blood cultures.) Physical Examination - Vital Signs Temperature: 98.7 F Blood Pressure: 145/59 Pulse: 60 Respirations: 28 Pulse Ox (%): 96 - Physical Exam General: Alert, In no apparent distress, Oriented x3, Cooperative HEENT: Atraumatic Neck: Supple Respiratory: Clear to auscultation bilaterally, Normal air movement Cardiovascular: Normal pulses, Regular rate/rhythm Gastrointestinal: Normal bowel sounds, Soft and benign, Non-distended, No tenderness, No masses, No rebound, No guarding, Other (Bilateral percutaneous nephrostomy tubes in place) Musculoskeletal: No erythema, No tenderness, No warmth Integumentary: No erythema, No warmth, No cyanosis Neurological: Normal speech, Normal strength at 5/5 x4 extr, Normal tone, Normal affect - Studies Medications List Reviewed: Yes Assessment & Plan Discharge Plan: Home Plan to discharge in: 24 Hours Physician Review Additional Text: Impression: Complicated recurrent UTI, urine culture positive for enterococcus and Pseudomonas. History of bilateral percutaneous nephrostomies and history of recurrent complicated UTIs in the past requiring IV antibiotic therapy. Blood culture also positive 2/4 cultures pending. Bacteremia with noted 2/4 blood cultures pending. Likely enterococcus and Pseudomonas. Mild renal insufficiency, resolved. Hypertension Hyperlipidemia Anemia likely of chronic disease Hypokalemia, resolved Depression with anxiety History of cervical cancer with prior hysterectomy status post radiation therapy History of ureteral stent, left side Insufficiency sacral fracture Chronic pain Plan: Discharge was held yesterday due to blood culture being positive. 2/4 blood cultures positive at this time. Cultures pending. Urine culture positive for enterococcus and Pseudomonas. IV antibiotic therapy has been narrowed. Patient now on Levaquin IV. Meropenem has been discontinued. PICC line in place. Await blood culture results. Patient will likely require oral antibiotic therapy at discharge for 2 weeks for IV antibiotic therapy. Await results. Renal insufficiency resolved. Will discontinue IV fluids. Will continue with her medications for hypertension, hyperlipidemia, depression with anxiety. Continue with chronic pain medication. Patient sees Urology and Infectious Disease in [place]. Will try to get a hold of them tomorrow to discuss the case further with them. Anticipate discharge likely tomorrow once results of blood cultures have been obtained. Time Spent Managing Pts Care (In Minutes): 55
[2018-07-11] MEDS: FLUOXETINE 10 MG CAP PO SCH (09:59)
[2018-07-11] MEDS: ATORVASTATIN 10 MG TAB PO SCH (20:43)
[2018-07-12 02:06] VITALS: O2SAT 94
[2018-07-12 06:13] LABS: Absolute Lymphocytes (CBC) 0.8 K/uL (0.7-4.9); Absolute Monocytes 0.8 K/uL (0.1-1.3); Absolute Neutrophil 5.2 K/uL (1.8-8.0); Basophils % 0.2 % (0-1.3); Eosinophils % 1.2 % (0-4.4); Hematocrit 27.2 % (36.0-45.0); Lymphocytes % 11.4 % (15.3-44.8); MCV 97.8 fL (80-100); MPV 9.6 fL (7.6-11.3); Monocytes % 11.3 % (3.3-12.3); RBC Red Blood Cell Count 2.79 M/uL (3.86-4.86)
[2018-07-12] MEDS: METOPROLOL TAR 25 MG TAB PO SCH (06:13)
[2018-07-12] MEDS: HYDROCODONE/APAP 10/325 TAB PO PRN ×2 (06:17→12:09)
[2018-07-12] MEDS: Levofloxacin500mg IV 500 MG/100 ML BAG IV SCH (06:17)
[2018-07-12 06:38] LABS: Magnesium 1.8 mg/dL (1.8-2.4); Potassium 3.5 mmol/L (3.5-5.1)
[2018-07-12] MEDS ORDERED: MAGNESIUM SULFATE 1 gm IVPB 1 GM/100 ML BAG IV ONE (09:00)
[2018-07-12] MEDS: FLUOXETINE 10 MG CAP PO SCH (09:10)
[2018-07-12] MEDS: VITAMIN D 1000 UNIT TAB PO SCH (09:10)
[2018-07-12] MEDS: PANTOPRAZOLE 40MG TABLET PO SCH (09:11)
[2018-07-12] MEDS: FUROSEMIDE 20 MG TABLET PO SCH (09:11)
[2018-07-12] MEDS: POTASSIUM CL SA 10 MEQ TAB PO SCH (09:11)
[2018-07-12] MEDS: ENOXAPARIN 40 MG/0.4 ML SQ SCH (09:12)
[2018-07-12 12:32] VITALS: BP 123/61; TEMP 97.9
--- NOTE | 2018-07-12 12:53 | P.PN ---
Subjective Date of Service: 07/12/18 Primary Care Provider: Dr. Beltran([place]); Dr. Buchanan(Urology) Chief Complaint: Chills Subjective: Improving Physical Examination - Vital Signs Temperature: 97.9 F Blood Pressure: 123/61 Pulse: 54 Respirations: 20 Pulse Ox (%): 98 - Physical Exam General: Alert, In no apparent distress, Oriented x3, Cooperative HEENT: Atraumatic Neck: Supple Respiratory: Clear to auscultation bilaterally, Normal air movement Cardiovascular: Normal pulses, Regular rate/rhythm Gastrointestinal: Normal bowel sounds, Soft and benign, Non-distended, No tenderness, No masses, No rebound, No guarding, Other (Bilateral nephrostomy tubes in place) Neurological: Normal speech, Normal strength at 5/5 x4 extr, Normal tone, Normal affect - Studies Medications List Reviewed: Yes Assessment & Plan Discharge Plan: Home Plan to discharge in: 24 Hours Physician Review Additional Text: Impression: Complicated recurrent UTI, urine culture positive for enterococcus and Pseudomonas along with blood culture positive for Pseudomonas. History of bilateral percutaneous nephrostomies and history of recurrent complicated UTIs in the past requiring IV antibiotic therapy. Bacteremia with noted 2/4 blood cultures positive for Pseudomonas. Mild renal insufficiency, resolved. Hypertension Hyperlipidemia Anemia likely of chronic disease Hypokalemia, resolved Depression with anxiety History of cervical cancer with prior hysterectomy status post radiation therapy History of ureteral stent, left side Insufficiency sacral fracture Chronic pain Plan: Discharge continues to be on hold. Sensitivities 2 blood and urine reviewed. [place] sensitivity noted. Anticipate discharge with Levaquin. Anticipate discharge today with oral medication for 2 weeks. Repeat blood culture and urine culture will need to be obtained at that time to monitor resolution. I will try to get a hold of her urologist and infectious disease doctor to confirm plan of care. Likely discharge today. Patient overall stable with multiple medical problems. Time Spent Managing Pts Care (In Minutes): 55
--- NOTE | 2018-07-12 13:10 | P.DS ---
Admission Date: 07/10/18 Discharge Date: 07/12/18 Primary Care Provider: Dr. Beltran([place]); Dr. Buchanan(Urology) Disposition: ROUTINE DISCHARGE Discharge Condition: GOOD Reason for Admission: Chills Procedures: CT scan: CLINICAL HISTORY: Abdominal pain. Nephrostomy tube placement. Breast cancer COMPARISON: 2014 TECHNIQUE: Computed axial tomography of the abdomen pelvis was obtained. 100 cc Isovue-300 was administered intravenously. Oral contrast was not requested which limits evaluation of bowel. All CT scans are performed using dose optimization technique as appropriate and may include automated exposure control or mA/KV adjustment according to patient size. FINDINGS: Bilateral percutaneous nephrostomy tubes are in place without hydronephrosis. A left ureteral stent is in place. A fluid-filled bladder is not identified. A hysterectomy is been performed. There is ill-defined soft tissue at the hysterectomy site. There is no evidence of diverticulitis. The liver, spleen, pancreas and adrenals appear unremarkable. Postsurgical changes involve the spine. Insufficiency sacral fracture is noted. Insufficiency fracture of the left ilium is noted. Bold right pubic bone fracture is present. A moderate amount of stool is present throughout the colon 1 IMPRESSION: Bilateral percutaneous nephrostomy tubes and a left ureteral stent in place. No hydronephrosis. A hysterectomy has been performed. There is ill-defined soft tissue at the surgical bed. This could represent recurrent neoplasm or inflammation. Insufficiency sacral fracture MEDICAL PROBLEM LIST: Complicated recurrent UTI, urine culture positive for Pseudomonas aeruginosa and enterobacter/blood culture positive for Pseudomonas. Multiple sensitivities identified. Patient with history of bilateral percutaneous nephrostomies and history of recurrent UTI in the past requiring IV antibiotic therapy. Bacteremia, blood culture positive for Pseudomonas Mild renal insufficiency, resolved Hypertension, controlled Hyperlipidemia Anemia likely of chronic disease Hypokalemia, resolved Depression with anxiety History of cervical cancer with prior hysterectomy status post radiation therapy in the past History of ureteral stent, left side Insufficiency sacral fracture Chronic pain Brief History of Present Illness: 77 year old female presented emergency room with chills. Patient is suspected that she had a UTI. Patient with history of cervical cancer, hypertension, depression, hyperlipidemia. She now has percutaneous nephrostomy tubes in place after surgery for cervical cancer in the distant past. Patient has had multiple recurrent UTIs requiring IV antibiotic therapies in the past. She was seen by home health recently. Urine culture was obtained on 2017. Gram negative rods are pending. Prior culture done in March of 2018 showed a multi resistant bacteria. Patient denied any significant chest pain, shortness of breath. Patient did report a fever of 103. In the ER patient was evaluated. White count 14.4, hemoglobin 5th 11.3. Sodium 140, potassium 3.7. Lactic acid and pro calcitonin unremarkable. Chest x-ray showed chronic interstitial changes. CT abdomen showed no hydronephrosis. Bilateral percutaneous nephrostomy tubes in place. Left ureteral stent in place. Chronic changes noted to the pelvic area. Due to the current findings and recent culture patient was admitted for treatment. When I saw the patient ER, she appeared comfortable. Patient has multiple medical problems including hypertension, hyperlipidemia, prior cervical cancer with hysterectomy, radiation. Patient now with percutaneous bilateral nephrostomy tubes. Patient does not smoke. She does drink on a regular basis Hospital Course: Patient presented with fever. Patient was evaluated in the emergency room. Patient found to have UTI. Patient had a urine culture done on 07/08 by [facility]. Patient with history of bilateral percutaneous nephrostomies and a left ureteral stent. Patient has also has a history of recurrent UTIs in the past requiring IV antibiotic therapy. Patient is seen by urology at [facility]. Primary physician is in [place]. Patient had elevated white count. Pro calcitonin and lactic acid were within normal range. Patient was admitted for suspected complicated recurrent UTI likely requiring IV antibiotic therapy. During the course of her stay the patient improved. Urine culture was identified as Pseudomonas aeruginosa and enterobacter. Blood culture positive for Pseudomonas. Multiple sensitivities were identified. Patient was switched over from IV meropenem to Levaquin. Case discussed at length with her urologist full recommends to continue with oral medication for 14 days. No need for IV antibiotic therapy at this time. At discharge patient will continue with Levaquin 500 mg once daily for 14 days. Recommendation is for the patient follow up with her urologist this week to further monitor and address. Recommendation is to recheck urine culture in 10-14 days to monitor resolution, this can be done by her urologist or PCP. Prevention of UTIs will need to be enforced. Patient also sees Infectious Disease. Patient may follow up with infectious disease this week to further address as well. No need for IV antibiotic therapy at this time. Patient had mild renal insufficiency likely from UTI. Patient was given IV fluids. This improved. Recommendation is to recheck lab-BMP in 1 week to monitor her progress. Patient has hypertension. Patient will continue with her medication including metoprolol ER 25 mg daily. Recommendation is to maintain blood pressures less 150/80. Further adjustment can be done by her PCP. Patient has diabetes mellitus type 2 without the need for insulin therapy. Patient may continue with metformin 500 mg daily. Recommendation is to maintain blood sugars less than 140 fasting and less than 200 after meals. Further adjustment can be done by her PCP. Patient found to have hypokalemia. Patient is taking Lasix and potassium at home. This was replaced. At discharge she may continue with Lasix 20 mg daily and potassium supplement 20 mEq once daily. Recommendation is to recheck lab- BMP to monitor progress. Further adjustment can be done by her PCP. Patient has anemia likely of chronic disease to recheck lab-CBC in 1-2 weeks to monitor her progress. Patient with history of cervical cancer with prior hysterectomy. She also has received radiation in the past. Patient may follow up with oncology as directed. Patient with depression and anxiety. Patient may continue with her medication fluoxetine 10 mg daily. Patient has hyperlipidemia. Patient will continue with Pravachol 20 mg 1 pill once daily. Patient has GERD. Patient continue with Prilosec 40 mg 1 pill once daily. Patient has chronic pain. Patient will continue with [place] as directed. Vital Signs/Physical Exam: Temp Pulse Resp BP Pulse Ox 97.9 F 54 20 123/61 98 07/12/18 12:53 07/12/18 12:53 07/12/18 12:53 07/12/18 12:53 07/12/18 12:53 General: Alert, In no apparent distress, Oriented x3, Cooperative HEENT: Atraumatic Neck: Supple Respiratory: Clear to auscultation bilaterally, Normal air movement Cardiovascular: Normal pulses, Regular rate/rhythm Gastrointestinal: Normal bowel sounds, Soft and benign, Non-distended, No tenderness, No masses, No rebound, No guarding Musculoskeletal: No erythema, No tenderness, No warmth Integumentary: No tenderness/swelling, No erythema, No warmth, No cyanosis Neurological: Normal speech, Normal strength at 5/5 x4 extr, Normal tone, Normal affect Laboratory Data at Discharge: WBC 6.9 K/uL (4.3-10.9) D 07/12/18 05:05 Hgb 9.5 g/dL (12.0-15.0) L 07/12/18 05:05 Hct 27.2 % (36.0-45.0) L 07/12/18 05:05 Plt Count 218 K/uL (152-406) 07/12/18 05:05 Sodium 142 mmol/L (136-145) 07/12/18 05:05 Potassium 3.5 mmol/L (3.5-5.1) 07/12/18 05:05 BUN 22 mg/dL (7-18) H 07/12/18 05:05 Creatinine 0.70 mg/dL (0.55-1.3) 07/12/18 05:05 Glucose 103 mg/dL (74-106) 07/12/18 05:05 Magnesium 1.8 mg/dL (1.8-2.4) 07/12/18 05:05 Total Bilirubin 0.3 mg/dL (0.2-1.0) 07/09/18 11:20 AST 26 U/L (15-37) 07/09/18 11:20 ALT 22 U/L (12-78) 07/09/18 11:20 Alkaline Phosphatase 69 U/L (45-117) 07/09/18 11:20 Amylase 55 U/L (25-115) 07/09/18 11:20 Lipase 126 U/L (73-393) 07/09/18 11:20 Home Medications: Fluoxetine HCl 10 mg PO DAILY 10/11/15 Hydrocodone/Acetaminophen [Hydrocodon-Acetaminophn 10-325] 2 tab PO Q6H PRN 08/16 Pravastatin Sodium [Pravachol] 20 mg PO BEDTIME 10/11/15 Cholecalciferol (Vitamin D3) [Vitamin D3] 2 cap PO DAILY 07/09/18 Furosemide 20 mg PO DAILY 07/09/18 Metformin HCl 500 mg PO DAILY 07/09/18 Metoprolol Succinate 25 mg PO DAILY 07/09/18 Omeprazole [Prilosec] 40 mg PO DAILY 07/09/18 Potassium Chloride 20 meq PO DAILY 07/09/18 Levofloxacin [Levaquin] 500 mg PO DAILY #14 tablet 07/12/18 New Medications: Levofloxacin [Levaquin] 500 mg PO DAILY #14 tablet Patient Discharge Instructions: 1. Patient will need a follow up with a PCP within 1 week to follow up this hospitalization. 2. Patient presented with fever. Patient was evaluated in the emergency room. Patient found to have UTI. Patient had a urine culture done on 07/08 by [facility]. Iron culture positive for Pseudomonas and enterobacter. Blood cultures positive for Pseudomonas. CT scan showed no hydronephrosis. Patient with history of bilateral percutaneous nephrostomies and a left ureteral stent. Patient has also has a history of recurrent, complicated UTIs in the past requiring IV antibiotic therapy. Patient is seen by urology-Dr. Buchanan at [facility]. Primary physician is in [place]. Patient had elevated white count. Pro calcitonin and lactic acid were within normal range. Patient was admitted for suspected complicated recurrent UTI likely requiring IV antibiotic therapy. During the course of her stay the patient improved. Urine culture was identified as Pseudomonas aeruginosa and enterobacter. Blood culture positive for Pseudomonas. Multiple sensitivities were identified. Case discussed with her urologist. No need for IV antibiotic there At discharge patient will continue with Levaquin 500 mg once daily for 14 days. Recommendation is for the patient follow up with her urologist this week to further monitor and address. Recommendation is to recheck urine culture and blood culture in 10-14 days to monitor resolution. Prevention of UTIs will need to be enforced. Patient also sees Infectious Disease. Patient may follow up with infectious disease this week to further address as well. No need for IV antibiotic therapy at this time. 3. Patient had mild renal insufficiency likely from UTI. Patient was given IV fluids. This improved. Recommendation is to recheck lab-BMP in 1 week to monitor her progress. 4. Patient has hypertension. Patient will continue with her medication including metoprolol ER 25 mg daily. Recommendation is to maintain blood pressures less 150/80. Further adjustment can be done by her PCP. 5. Patient has diabetes mellitus type 2 without the need for insulin therapy. Patient may continue with metformin 500 mg daily. Recommendation is to maintain blood sugars less than 140 fasting and less than 200 after meals. Further adjustment can be done by her PCP. 6. Patient found to have hypokalemia. Patient is taking Lasix and potassium at home. This was replaced. At discharge she may continue with Lasix 20 mg daily and potassium supplement 20 mEq once daily. Recommendation is to recheck lab-BMP to monitor progress. Further adjustment can be done by her PCP. 7. Patient has anemia likely of chronic disease to recheck lab-CBC in 1-2 weeks to monitor her progress. 8. Patient with history of cervical cancer with prior hysterectomy. She also has received radiation in the past. Patient may follow up with oncology as directed. 9. Patient with depression and anxiety. Patient may continue with her medication fluoxetine 10 mg daily. 10. Patient has hyperlipidemia. Patient will continue with Pravachol 20 mg 1 pill once daily. 11. Patient has GERD. Patient continue with Prilosec 40 mg 1 pill once daily. 12. Patient has chronic pain. Patient will continue with [place] as directed. Diet: ADA Activity: Fall precautions Followup: Perry Curtis MD [ACTIVE - CAN ADMIT] - Time spent managing pt's care (in minutes): 55
== END 2018-07-12 14:17 | disposition home or self-care (01) | DRG 690 ==
LOC: ER 10:40 → ERHOLD 17:35 → 4TH 19:27 → OBSVTOIN 07-10 14:01
PROVIDERS: ADMIT Family Medicine; ATTEND Family Medicine
PROC: 02HV33Z Insertion of Infusion Device into Superior Vena Cava, Percutaneous Approach (ICD-10-PCS; principal; 2018-07-09)
DX: N39.0 Urinary tract infection, site not specified (principal); M48.58XA Collapsed vertebra, not elsewhere classified, sacral and sacrococcygeal region, initial encounter for fracture; R78.81 Bacteremia; B96.5 Pseudomonas (aeruginosa) (mallei) (pseudomallei) as the cause of diseases classified elsewhere; B96.89 Other specified bacterial agents as the cause of diseases classified elsewhere; N28.9 Disorder of kidney and ureter, unspecified; I10 Essential (primary) hypertension; E78.5 Hyperlipidemia, unspecified; E87.6 Hypokalemia; F41.8 Other specified anxiety disorders; G89.29 Other chronic pain; E11.9 Type 2 diabetes mellitus without complications; K21.9 Gastro-esophageal reflux disease without esophagitis; D63.8 Anemia in other chronic diseases classified elsewhere; Z79.84 Long term (current) use of oral hypoglycemic drugs; Z92.3 Personal history of irradiation; Z93.6 Other artificial openings of urinary tract status; Z85.41 Personal history of malignant neoplasm of cervix uteri
CPT/HCPCS: 36415; 71045; 71046; 74177; 80048; 80076; 81003; 81015; 82150; 83036; 83605; 83690; 83735; 84145; 84484; 85025; 87040; 87077; 87086; 87088; 87186; 87205; 96365; 96367; 99285; G0378; J0692; J1650; J3475; J7030; Q9967

== ENCOUNTER 2018-09-18 17:38 | Emergency (ER) | payer OTHER, BC ==
--- OUTSIDE RECORDS SUMMARY | 2018-09-18 17:41 | XMS REPORT | Clinical Summary ---
:1940 Author Organization [facility] Address [address] [place] [address] Care Team Providers Name Role Phone Edilma Kenny MD Primary Care Provider Allergies Active Allergy Reactions Severity Noted Date Comments Lisinopril Other (See Comments) 03/19/2017 Dry cough Medications Medication Sig Dispensed Refills Start Date End Date Status CHOLECALCIFEROL, Take by 0 Active VITAMIN D3, (VITAMIN mouth. D3 ORAL) HYDROcodone-acetamino Take 2 0 Active phen (NORCO 10-325) tablets by 10-325 mg per tablet mouth every 6 (six) hours as needed for Pain . fLUoxetine (PROZAC) Take 10 mg by 0 Active 10 MG capsule mouth daily. pravastatin Take 20 mg by 0 Active (PRAVACHOL) 20 MG mouth tablet nightly. potassium chloride Take 20 mEq 0 Active (KLOR-CON) 20 mEq by mouth 2 packet (two) times daily. metoprolol Take 25 mg by 0 Active (TOPROL-XL) 25 MG 24 mouth daily. hr tablet omeprazole (PRILOSEC) Take 40 mg by 0 Active 40 MG capsule mouth daily. levoFLOXacin . 0 08/13/2018 Active (LEVAQUIN) 500 MG tablet phentermine . 0 07/26/2018 Active (ADIPEX-P) 37.5 mg tablet torsemide (DEMADEX) . 0 07/14/2018 Active 10 MG tablet levothyroxine Take 50 mcg 0 Discontinued (SYNTHROID, by mouth 8 LEVOTHROID) 50 MCG Every morning tablet on an empty stomach. anastrozole Take 1 mg by 0 Discontinued (ARIMIDEX) 1 mg mouth daily. 8 tablet cyclobenzaprine Take 10 mg by 0 Discontinued (FLEXERIL) 5 MG mouth 3 8 tablet (three) times daily as needed for Muscle spasms . furosemide (LASIX) 20 Take 20 mg by 0 Discontinued MG tablet mouth 2 (two) 8 times daily. acetaminophen-codeine Take 1 tablet 15 tablet 0 [...] Noted Date Hydronephrosis 08/06/2017 Nephrostomy tube displaced 08/06/2017 Ureteral stricture 03/23/2017 History of cervical cancer 11/02/1987 Encounters Date Type Specialty Care Team Description 08/19/2018 Hospital Radiology Vince Buchanan, Hydronephrosis, Encounter unspecified hydronephrosis type 08/16/2018 Outside Orders Central Scheduling Vince Buchanan Hydronephrosis, unspecified hydronephrosis type (Primary Dx) 05/06/2018 Emergency Emergency Medicine O[place]eme, Hydronephrosis with ureteral stricture, not elsewhere classified (Primary Dx); Carmelo Delgadillo, Nephrostomy complication (HCC); Urinary tract infection without hematuria, site unspecified 04/09/2018 Emergency Emergency Medicine Jong Abraham, Nephrostomy tube displaced (HCC) (Primary Dx) 03/12/2018 Emergency Emergency Medicine Shar Messina MD Nephrostomy tube displaced (HCC) (Primary Dx); Right flank pain 02/24/2018 Hospital Radiology Vince Buchanan, Hydronephrosis, Encounter MD unspecified hydronephrosis type 02/18/2018 Outside Orders Central Scheduling Vince Buchanan Hydronephrosis, unspecified hydronephrosis type (Primary Dx) 12/28/2017 Emergency Emergency Medicine Jong Wiseman Obstructed nephrostomy tube (HCC) (Primary Dx); MD Yaya Right upper quadrant abdominal pain; Acute right-sided thoracic back pain; Hydronephrosis with ureteral stricture, not elsewhere classified; Nephrostomy tube displaced (HCC) 12/10/2017 Emergency Emergency Medicine Jong Abraham, Nephrostomy tube displaced (HCC) (Primary Dx); Acute pyelonephritis; Controlled type 2 diabetes mellitus without complication, unspecified terminal gauger insulin use status (HCC); History of cervical cancer 11/19/2017 Hospital Radiology Vince Buchanan, Hydronephrosis, Encounter unspecified hydronephrosis type 11/12/2017 Outside Orders Central Scheduling Vince Buchanan, Hydronephrosis, unspecified hydronephrosis type (Primary Dx) 10/31/2017 Emergency Emergency Medicine Henry Barrett, Nephrostomy complication (HCC) (Primary Dx); Flank pain after 09/17/2017 Family History Medical History Relation Name Comments Heart disease Daughter Cancer Father Diabetes Mother Heart disease Mother Diabetes Sister Relation Name Status Comments Daughter Father Mother Sister Social History Tobacco Use Types Packs/Day Years Used Date Never Smoker Smokeless Tobacco: Never Used Alcohol Use Drinks/Week oz/Week Comments Yes 14 Glasses of wine 8.4 Sex Assigned at Date Recorded Not on file Job Start Date Occupation Industry Not on file Not on file Not on file Travel History Travel Start Travel End No recent travel history available. Last Filed Vital Signs Vital Sign Reading Time Taken Blood Pressure 154/72 08/19/2018 12:58 PM CDT Pulse 72 08/19/2018 12:58 PM CDT Temperature 36.4 C (97.5 F) 08/19/2018 12:58 PM CDT Respiratory Rate 16 08/19/2018 12:58 PM CDT Oxygen Saturation 97% 08/19/2018 12:58 PM CDT Inhaled Oxygen Concentration - - Weight 60.8 kg (134 lb) 04/09/2018 1:15 PM CDT Height 154.9 cm (5' 1") 04/09/2018 1:15 PM CDT Body Mass Index 25.32 04/09/2018 1:15 PM CDT Plan of Treatment Not on file Procedures Procedure Name Priority Date/Time Associated Diagnosis Comments IR NEPHROSTOMY TUBE Routine 08/19/2018 12:55 Hydronephrosis, Results for this CHANGE - LEFT PM CDT unspecified procedure are in hydronephrosis type the results section. PERMANENT LAB REPORT 05/10/2018 2:51 - SCAN PM CDT IR REMOVAL OF Routine 05/06/2018 6:50 Results for this NEPHROSTOMY TUBE - PM CDT procedure are in LEFT the results section. PT/APTT Routine 05/06/2018 4:00 Results for this PM CDT procedure are in the results section. PT/APTT Routine 05/06/2018 3:15 Results for this PM CDT procedure are in the results section. CBC W/PLT COUNT & Routine 05/06/2018 2:45 Results for this AUTO DIFFERENTIAL PM CDT procedure are in the results section. CBC W/PLT COUNT & Routine 05/06/2018 2:45 Results for this AUTO DIFFERENTIAL PM CDT procedure are in the results section. BASIC METABOLIC Routine 05/06/2018 2:45 Results for this PANEL (7) PM CDT procedure are in the results section. IR NEPHROSTOMY TUBE STAT 04/09/2018 4:25 Results for this CHANGE - RIGHT PM CDT procedure are in the results section. URINALYSIS W/ STAT 04/09/2018 1:41 Results for this MICROSCOPIC PM CDT procedure are in the results section. URINE CULTURE STAT 04/09/2018 1:41 Results for this PM CDT procedure are in the results section. CBC W/PLT COUNT & STAT 04/09/2018 1:39 Results for this AUTO DIFFERENTIAL PM CDT procedure are in the results section. PT/APTT STAT 04/09/2018 1:39 Results for this PM CDT procedure are in the results section. BASIC METABOLIC STAT 04/09/2018 1:39 Results for this PANEL (7) PM CDT procedure are in the results section. CBC W/PLT COUNT & STAT 04/09/2018 1:39 Results for this AUTO DIFFERENTIAL PM CDT procedure are in the results section. IR NEPHROSTOMY TUBE STAT 03/12/2018 7:40 Results for this CHANGE - RIGHT PM CDT procedure are in the results section. IR NEPHROSTOMY TUBE Routine 02/24/2018 11:50 Hydronephrosis, Results for this CHANGE - RIGHT AM CDT unspecified procedure are in hydronephrosis type the results section. IR NEPHROSTOMY TUBE Routine 02/24/2018 11:30 Hydronephrosis, Results for this CHANGE - LEFT AM CDT unspecified procedure are in hydronephrosis type the results section. IR NEPHROSTOMY TUBE STAT 12/28/2017 6:00 Results for this CHANGE - RIGHT PM [employer] procedure are in the results section. PT/APTT STAT 12/28/2017 9:33 Results for this AM [employer] procedure are in the results section. URINALYSIS W/ STAT 12/28/2017 9:32 Results for this MICROSCOPIC AM [employer] procedure are in the results section. URINE CULTURE STAT 12/28/2017 9:32 Results for this AM [employer] procedure are in the results section. CBC W/PLT COUNT & STAT 12/28/2017 9:31 Results for this AUTO DIFFERENTIAL AM [employer] procedure are in the results section. CBC W/PLT COUNT & STAT 12/28/2017 9:31 Results for this AUTO DIFFERENTIAL AM [employer] procedure are in the results section. BASIC METABOLIC STAT 12/28/2017 9:31 Results for this PANEL (7) AM [employer] procedure are in the results section. IR NEPHROSTOMY TUBE STAT 12/10/2017 7:39 Results for this CHANGE - RIGHT PM [employer] procedure are in the results section. IR NEPHROSTOMY TUBE STAT 12/10/2017 7:39 Results for this CHANGE - LEFT PM [employer] procedure are in the results section. URINALYSIS W/ STAT 12/10/2017 2:52 Results for this MICROSCOPIC PM [employer] procedure are in the results section. URINE CULTURE STAT 12/10/2017 2:52 Results for this PM [employer] procedure are in the results section. CBC W/PLT COUNT & STAT 12/10/2017 2:45 Results for this AUTO DIFFERENTIAL PM [employer] procedure are in the results section. BASIC METABOLIC STAT 12/10/2017 2:45 Results for this PANEL (7) PM [employer] procedure are in the results section. CBC W/PLT COUNT & STAT 12/10/2017 2:45 Results for this AUTO DIFFERENTIAL PM [employer] procedure are in the results section. IR NEPHROSTOMY TUBE Routine 11/19/2017 3:00 Hydronephrosis, Results for this CHANGE - RIGHT PM [employer] unspecified procedure are in hydronephrosis type the results section. IR NEPHROSTOMY TUBE STAT 10/31/2017 3:20 Results for this CHANGE - RIGHT PM [employer] procedure are in the results section. XR ABDOMEN 2 VIEWS STAT 10/31/2017 2:15 Results for this FLAT AND UPRIGHT PM [employer] procedure are in the results section. CBC W/PLT COUNT & STAT 10/31/2017 10:41 Results for this AUTO DIFFERENTIAL AM [employer] procedure are in the results section. PT/APTT STAT 10/31/2017 10:41 Results for this AM [employer] procedure are in the results section. BASIC METABOLIC STAT 10/31/2017 10:41 Results for this PANEL (7) AM [employer] procedure are in the results section. CBC W/PLT COUNT & STAT 10/31/2017 10:41 Results for this AUTO DIFFERENTIAL AM [employer] procedure are in the results section. after 09/17/2017 Results IR Nephrosotomy Tube Change Left (08/19/2018 12:55 PM CDT)Only the most recent of3 resultswithin the time period is included. Narrative Performed At FINAL REPORT [facility] Right percutaneous nephrostomy and left percutaneous nephroureterostomy catheter exchange. History: Ureteral obstruction Modality:fluoroscopy. Sedation: None Photo Technician:Gerald Baeza MD. Plastics Engineer:None. Approach: Lashonda Oakes (resident) Estimated blood loss:< 5 cc. Specimen: None. Fluoroscopy Time: 5.8 min. Reference Air Kerma (Ka, r): 49.1 mGy. Technique: Informed written consent was obtained. [...] radiologist and scrub technologist. Contrast was injected via the indwelling right nephrostomy catheter confirming intraluminal location. One percent lidocaine was used for local anesthesia. The existing catheter was cut and a 0.035 wire was advanced through the catheter and coiled within the right renal pelvis. The existing catheter was removed over wire and a new 12 Czech nephrostomy catheter was advanced over wire with pigtail formed within the right renal pelvis. Contrast injection confirmed position. The catheter was fixed to the skin with silk suture. Sterile dressing was applied. Contrast was injected via the indwelling left nephroureterostomy catheter confirming intraluminal position. 1% lidocaine was used for local anesthesia. The existing catheter was cut and a 0.035 wire was advanced through the catheter and coiled within the urinary bladder. The existing catheter was removed and a new 8.5 Czech by 24 cm nephroureterostomy catheter was advanced over wire with distal pigtail formed within the urinary bladder and proximal pigtail formed within the left renal pelvis. Contrast injection confirmed position. The catheter was fixed to the skin with silk suture. A sterile dressing was applied. The patient for the procedure well without immediate complication. Impression: Successful fluoroscopic-guided right nephrostomy and left nephroureterostomy catheter exchange. Signed: Gerald Baeza MD Report Verified Date/Time:08/19/2018 14:10:12 Reading Location: [place] [address] Angio Body Reading Room Procedure Note Interface, External Ris In - 08/19/2018 2:12 PM CDT FINAL REPORT Right percutaneous nephrostomy and left percutaneous nephroureterostomy catheter exchange. History: Ureteral obstruction Modality: fluoroscopy. Sedation: None Photo Technician: Gerald Baeza MD. Plastics Engineer: None. Approach: Lashonda Oakes (resident) Estimated blood loss: < 5 cc. Specimen: None. Fluoroscopy Time: 5.8 min. Reference Air Kerma (Ka, r): 49.1 mGy. Technique: Informed written consent was obtained. [...] radiologist and scrub technologist. Contrast was injected via the indwelling right nephrostomy catheter confirming intraluminal location. One percent lidocaine was used for local anesthesia. The existing catheter was cut and a 0.035 wire was advanced through the catheter and coiled within the right renal pelvis. The existing catheter was removed over wire and a new 12 Czech nephrostomy catheter was advanced over wire with pigtail formed within the right renal pelvis. Contrast injection confirmed position. The catheter was fixed to the skin with silk suture. Sterile dressing was applied. Contrast was injected via the indwelling left nephroureterostomy catheter confirming intraluminal position. 1% lidocaine was used for local anesthesia. The existing catheter was cut and a 0.035 wire was advanced through the catheter and coiled within the urinary bladder. The existing catheter was removed and a new 8.5 Czech by 24 cm nephroureterostomy catheter was advanced over wire with distal pigtail formed within the urinary bladder and proximal pigtail formed within the left renal pelvis. Contrast injection confirmed position. The catheter was fixed to the skin with silk suture. A sterile dressing was applied. The patient for the procedure well without immediate complication. Impression: Successful fluoroscopic-guided right nephrostomy and left nephroureterostomy catheter exchange. Signed: Gerald Baeza MD Report Verified Date/Time: 08/19/2018 14:10:12 Reading Location: [place] [address] Angio Body Reading Room Performing Organization Address City/State/Zipcode Phone Number [facility] PERMANENT LAB REPORT - SCAN (05/10/2018 2:51 PM CDT) Narrative Performed At IR Removal of Nephrostomy Tube - Left (05/06/2018 6:50 PM CDT) Narrative Performed At FINAL REPORT [facility] Fluoroscopic guided bilateral nephrostomy tube exchange, 05/06/2018. Clinical History: Ureteral obstruction, clogged right PCN. Modality: Fluoroscopy. Photo Technician:Jenny. Plastics Engineer:Biju. Sedation: None. Estimated Blood Loss:Less than 5 [...] catheter was removed and a new 8 Czech 24 cm nephroureterostomy catheter was advanced over the wire into the bladder. Pigtail was locked. Contrast was injected into the right PCN. A Glidewire was advanced through the catheter and curled within the right renal pelvis. The old catheter was removed and a new 12 Czech pigtail catheter was placed into the right [...] MD Report Verified Date/Time:05/06/2018 19:42:30 Reading Location: [place] [address] Angio Body Reading Room Procedure Note Interface, External Ris In - 05/06/2018 7:50 PM CDT FINAL REPORT Fluoroscopic guided bilateral nephrostomy tube exchange, 05/06/2018. Clinical History: Ureteral obstruction, clogged right PCN. Modality: Fluoroscopy. Photo Technician: Jenny. Plastics Engineer: Biju. Sedation: None. Estimated Blood Loss: [...] catheter was removed and a new 8 Czech 24 cm nephroureterostomy catheter was advanced over the wire into the bladder. Pigtail was locked. Contrast was injected into the right PCN. A Glidewire was advanced through the catheter and curled within the right renal pelvis. The old catheter was removed and a new 12 Czech pigtail catheter was placed into the right [...] Report Verified Date/Time: 05/06/2018 19:42:30 Reading Location: [place] [address] Angio Body Reading Room Performing Organization Address City/State/Zipcode Phone Number [facility] PT/aPTT (05/06/2018 4:00 PM CDT)Only the most recent of5 resultswithin the time period is included. Protime 13.1 11.7 - 14.7 seconds [facility] INR 1.0 <=5.9 [facility] PTT 30.4 22.5 - 36.0 seconds [facility] Specimen Blood Narrative Performed At [facility] RECOMMENDED COUMADIN/WARFARIN INR THERAPY RANGES STANDARD DOSE: 2.0 - 3.0 Includes: PROPHYLAXIS for venous thrombosis, systemic embolization; TREATMENT for venous thrombosis and/or pulmonary embolus. HIGH RISK: Target INR is 2.5-3.5 for patients with mechanical heart valves. Performing Organization Address City/State/Zipcode Phone Number [facility] [address] [place] [address] CENTER CBC with platelet count + automated diff (05/06/2018 2:45 PM CDT)Only the most recent of5 resultswithin the time period is included. WBC 8.0 3.5 - 10.5 K/L [facility] RBC 3.39 (L) 3.93 - 5.22 M/L [facility] Hemoglobin 10.8 (L) 11.2 - 15.7 GM/DL [facility] Hematocrit 36.3 34.1 - 44.9 % [facility] MCV 107.1 (H) 79.4 - 94.8 fL [facility] MCH 31.9 25.6 - 32.2 pg [facility] MCHC 29.8 (L) 32.2 - 35.5 GM/DL [facility] RDW 15.4 (H) 11.7 - 14.4 % [facility] Platelets 237 150 - 450 K/CU MM [facility] MPV 11.2 9.4 - 12.3 fL [facility] nRBC 0 0 - 0 /100 WBC [facility] % Neutros 70 % [facility] % Lymphs 18 % [facility] % Monos 11 % [facility] % Eos 1 % [facility] % Baso 0 % [facility] # Neutros 5.56 1.56 - 6.13 K/L [facility] # Lymphs 1.45 1.18 - 3.74 K/L [facility] # Monos 0.85 (H) 0.24 - 0.36 K/L [facility] # Eos 0.06 0.04 - 0.36 K/L [facility] # Baso 0.03 0.01 - 0.08 K/L [facility] Immature 0 0 - 1 % [facility] Granulocytes[facility] Specimen Blood Performing Organization Address City/State/Zipcode Phone Number [facility] [address] [place] [address] [facility] Basic Metabolic Panel (05/06/2018 2:45 PM CDT)Only the most recent of5 resultswithin the time period is included. Sodium 138 136 - 145 meq/L [facility] Potassium 4.2 3.5 - 5.1 meq/L [facility] Chloride 101 98 - 107 meq/L [facility] CO2 25 22 - 29 meq/L [facility] BUN 36 (H) 7 - 21 mg/dL [facility] Creatinine 1.20 0.57 - 1.25 mg/dL [facility] Glucose 60 (L) 70 - 105 mg/dL [facility] Calcium 9.3 8.4 - 10.2 mg/dL [facility] EGFR 44Comment: ESTIMATED GFR IS mL/min/1.73 sq m [facility] NOT ACCURATE CREATININE [facility] CLEARANCE IN PREDICTING GLOMERULAR FILTRATION RATE. ESTIMATED GFR IS NOT APPLICABLE FOR DIALYSIS PATIENTS. Specimen Blood Performing Organization Address City/State/Zipcode Phone Number [facility] [address] [place] [phone] [facility] IR Nephrostomy Tube Change - Right (04/09/2018 4:25 PM CDT)Only the most recent of7 resultswithin the time period is included. Narrative Performed At FINAL REPORT [facility] Right nephrostomy catheter exchange. History: Malfunction right nephrostomy catheter Modality: Fluoroscopy Sedation: None Photo Technician:Gerald Baeza MD. Plastics Engineer:None. Approach: Right flank Estimated blood loss:< 5 [...] was removed over wire. A new 10.2 Czech nephrostomy catheter was advanced over wire with pigtail formed within the right renal pelvis. Contrast injection confirmed positioning. The catheter was fixed to the skin with silk suture. A sterile dressing was applied. The patient tolerated the procedure well without immediate application. Impression: Successful right percutaneous nephrostomy catheter exchange. Signed: Gerald Baeza MD Report Verified Date/Time:04/09/2018 17:42:07 Reading Location: [place] [address] Angio Body Reading Room Procedure Note Interface, External Ris In - 04/09/2018 5:44 PM CDT FINAL REPORT Right nephrostomy catheter exchange. History: Malfunction right nephrostomy catheter Modality: Fluoroscopy Sedation: None Photo Technician: Gerald Baeza MD. Plastics Engineer: None. Approach: Right flank Estimated blood [...] was removed over wire. A new 10.2 Czech nephrostomy catheter was advanced over wire with pigtail formed within the right renal pelvis. Contrast injection confirmed positioning. The catheter was fixed to the skin with silk suture. A sterile dressing was applied. The patient tolerated the procedure well without immediate application. Impression: Successful right percutaneous nephrostomy catheter exchange. Signed: Gerald Baeza MD Report Verified Date/Time: 04/09/2018 17:42:07 Reading Location: [place] [address] Angio Body Reading Room Performing Organization Address City/State/Zipcode Phone Number [facility] Urinalysis w/Microscopic (04/09/2018 1:41 PM CDT)Only the most recent of3 resultswithin the time period is included. Color, UA Yellow [facility] Clarity, UA Hazy [facility] Specific [place], UA 1.013 1.001 - 1.035 [facility] pH, UA 8.5 (H) 5.0 - 8.0 [facility] Protein, UA 300 mg/dL (A) Negative [facility] Glucose, UA Negative Negative [facility] Ketones, UA Negative Negative [facility] Bilirubin, UA Negative Negative [facility] Blood, UA Trace (A) Negative [facility] Nitrite, UA Negative Negative [facility] Leukocytes, UA Large (A) Negative [facility] Urobilinogen, UA 0.2 0.2 - 1.0 mg/dL [facility] RBC, UA 23 /HPF [facility] WBC, UA 0 /HPF [facility] Mucus Occasional [facility] Triple Phosphate Crystals Occasional [facility] Specimen Source Urine, [place] [facility] Specimen Urine - Urine, [place] Performing Organization Address City/State/Zipcode Phone Number [facility] [address] [place] [phone] [facility] Urine culture (04/09/2018 1:41 PM CDT)Only the most recent of3 resultswithin the time period is included. Result >100,000 col/mL skin thomas [facility] Specimen Urine - Urine, [place] Performing Organization Address City/State/Zipcode Phone Number [facility] [address] [place] [phone] [facility] XR abdomen 2 views flat and upright (10/31/2017 2:15 PM [employer]) Narrative Performed At FINAL REPORT [facility] Four views of the abdomen. IMPRESSION: None. IMPRESSION: Right nephrostomy and left nephroureterostomy catheters in position. Postsurgical changes are also seen in the lower lumbar spine and right hip. The bowel gas pattern is nonspecific. There are vascular calcifications. The osseous structures demonstrate degenerative change. No definite free intraperitoneal air. Signed: Haresh Juarez MD Report Verified Date/Time:10/31/2017 14:41:15 Reading Location: [facility] C0[facility] Ortho Consult Reading Room Procedure Note Interface, External Ris In - 10/31/2017 2:43 PM [facility] [employer] FINAL REPORT Four views of the abdomen. IMPRESSION: None. IMPRESSION: Right nephrostomy and left nephroureterostomy catheters in position. Postsurgical changes are also seen in the lower lumbar spine and right hip. The bowel gas pattern is nonspecific. There are vascular calcifications. The osseous structures demonstrate degenerative change. No definite free intraperitoneal air. Signed: Haresh Juarez MD Report Verified Date/Time: 10/31/2017 14:41:15 Reading Location: [facility] B1 [id number] Ortho Consult Reading Room Performing Organization Address City/State/Zipcode Phone Number GE RIS after 09/17/2017 Insurance Payer Benefit Plan / Subscriber ID Type Phone Address Group MEDICARE MEDICARE A B xxxxxxxxxxx Medicare BLUE CROSS/BLUE [place]BS INDEMNITY [place] xxxxxxxxxxxx PPO [phone] [address] [place] [address] Advance Directives Patient has advance care planning documents, and code status on file. For more information, please contact:[address] [phone] Code Status Date Activated Date Inactivated Comments Full Code 08/06/2017 5:12 AM 08/07/2017 5:47 PM This code status was determined by: Patient Full Code 03/23/2017 4:58 PM 03/24/2017 8:15 PM This code status was determined by: Patient
--- OUTSIDE RECORDS SUMMARY | 2018-09-18 17:42 | XMS REPORT ---
:1940 [facility] Address [address] [place] [address] [address] [place] [address] Care Team Providers Name Role Phone PILO SIMPSON Unavailable Unavailable FRANCHESKALESLIE Unavailable Unavailable JESSICALESLIE Unavailable Unavailable SAMWAYS, LAURE TALBERT Unavailable Unavailable JOSUE, YANA TALBERT Unavailable Unavailable ARACELI, BRENDA DAYANA Unavailable Unavailable Problems This patient has no known problems. Allergies, Adverse Reactions, Alerts This patient has no known allergies or adverse reactions. Medications This patient has no known medications. Results Test Description Test Time Test Comments Text Results Atomic Results Result Comments HARPREET NEPHROSTOMY 2018-08-19 Reason for FINAL REPORT PATIENT ID: TUBE CHANGE, LEFT 14:10:00 Exam:->hydronephrosis [id number] Right unspecified hydronephrosis percutaneous nephrostomy type and left percutaneous nephroureterostomy catheter exchange. History: Ureteral obstruction Modality: fluoroscopy. Sedation: None Well Control Instructor: Gerald Baeza MD. Pasteurizing Supervisor: None. Approach: Lashonda Oakes (resident) Estimated blood loss: < 5 cc. Specimen: None. Fluoroscopy Time: 5.8 min.Reference Air Kerma (Ka, r): 49.1 mGy. Technique: [...] removed over wire and a new 12 [facility] nephrostomy catheter was advanced over wire with [...] catheter was removed and a new 8.5 [facility] by 24 cm nephroureterostomy catheter was advanced [...] left nephroureterostomy catheter exchange. Signed: Gerald Baeza [facility] Verified Date/Time: 08/19/2018 14:10:12 Reading Location: [place] [id number] Angio Body Reading Room /APTT 2018-05-07 12:58:00 Test Item Value Reference Range Comments PROTIME (BEAKER) (test oemj=053) 13.3 seconds 11.7-14.7 INR (BEAKER) (test cchw=257) 1.0 <=5.9 PARTIAL THROMBOPLASTIN TIME (BEAKER) (test ljtq=455) 29.4 seconds 22.5-36.0 RECOMMENDED COUMADIN/WARFARIN INR THERAPY RANGESSTANDARD DOSE: 2.0 - 3.0 Includes: PROPHYLAXIS forvenous thrombosis, systemic embolization; TREATMENT for venous thrombosis and/or pulmonary embolus.HIGH RISK: Target INR is 2.5-3.5 for patients with mechanical heart valves.BASIC METABOLIC [id number] 12:19: 00 Test Item Value Reference Range Comments SODIUM (BEAKER) (test 138 meq/L 136-145 xehr=318) POTASSIUM (BEAKER) (test 4.2 meq/L 3.5-5.1 kmwm=329) CHLORIDE (BEAKER) (test 101 meq/L 98-107 wivi=282) CO2 (BEAKER) (test 25 meq/L 22-29 xrzg=217) BLOOD UREA NITROGEN 36 mg/dL 7-21 (BEAKER) (test jbkz=796) CREATININE (BEAKER) (test 1.20 mg/dL 0.57-1.25 fqbf=117) GLUCOSE RANDOM (BEAKER) 60 mg/dL 70-105 (test dyxw=242) CALCIUM (BEAKER) (test 9.3 mg/dL 8.4-10.2 raph=378) EGFR (BEAKER) (test 44 mL/min/1.73 sq m ESTIMATED GFR IS NOT ghmd=2555) ACCURATE CREATININE CLEARANCE IN PREDICTING GLOMERULAR FILTRATION RATE. ESTIMATED GFR IS NOT APPLICABLE FOR DIALYSIS PATIENTS. PT/[id number] 11:43:00 Test Item Value Reference Range Comments PROTIME (BEAKER) (test guip=457) 13.1 seconds 11.7-14.7 INR (BEAKER) (test lvob=391) 1.0 <=5.9 PARTIAL THROMBOPLASTIN TIME (BEAKER) (test 30.4 seconds 22.5-36.0 suie=674) RECOMMENDED COUMADIN/WARFARIN INR THERAPY RANGESSTANDARD DOSE: 2.0 - 3.0 Includes: PROPHYLAXIS forvenous thrombosis, systemic embolization; TREATMENT for venous thrombosis and/or pulmonary embolus.HIGH RISK: Target INR is 2.5-3.5 for patients with mechanical heart valves.CBC W/PLT COUNT & AUTO [id number] 11:03:00 Test Item Value Reference Range Comments WHITE BLOOD CELL COUNT (BEAKER) (test bbtp=722) 8.0 K/ L 3.5-10.5 RED BLOOD CELL COUNT (BEAKER) (test fegl=737) 3.39 M/ L 3.93-5.22 HEMOGLOBIN (BEAKER) (test vfix=621) 10.8 GM/DL 11.2-15.7 HEMATOCRIT (BEAKER) (test prnk=183) 36.3 % 34.1-44.9 MEAN CORPUSCULAR VOLUME (BEAKER) (test qfho=502) 107.1 fL 79.4-94.8 MEAN CORPUSCULAR HEMOGLOBIN (BEAKER) (test 31.9 pg 25.6-32.2 lgeo=713) MEAN CORPUSCULAR HEMOGLOBIN CONC (BEAKER) (test 29.8 GM/DL 32.2-35.5 dmen=347) RED CELL DISTRIBUTION WIDTH (BEAKER) (test 15.4 % 11.7-14.4 cxvd=855) PLATELET COUNT (BEAKER) (test livp=265) 237 K/CU MM 150-450 MEAN PLATELET VOLUME (BEAKER) (test emmt=945) 11.2 fL 9.4-12.3 NUCLEATED RED BLOOD CELLS (BEAKER) (test 0 /100 WBC 0-0 vptc=172) NEUTROPHILS RELATIVE PERCENT (BEAKER) (test 70 % xpoc=091) LYMPHOCYTES RELATIVE PERCENT (BEAKER) (test 18 % erzd=464) MONOCYTES RELATIVE PERCENT (BEAKER) (test 11 % ssvl=729) EOSINOPHILS RELATIVE PERCENT (BEAKER) (test 1 % zhqo=160) BASOPHILS RELATIVE PERCENT (BEAKER) (test 0 % adra=656) NEUTROPHILS ABSOLUTE COUNT (BEAKER) (test 5.56 K/ L 1.56-6.13 crzv=070) LYMPHOCYTES ABSOLUTE COUNT (BEAKER) (test 1.45 K/ L 1.18-3.74 yvkc=303) MONOCYTES ABSOLUTE COUNT (BEAKER) (test 0.85 K/ L 0.24-0.36 cixm=750) EOSINOPHILS ABSOLUTE COUNT (BEAKER) (test 0.06 K/ L 0.04-0.36 bort=978) BASOPHILS ABSOLUTE COUNT (BEAKER) (test 0.03 K/ L 0.01-0.08 tmib=729) IMMATURE GRANULOCYTES-RELATIVE PERCENT (BEAKER) 0 % 0-1 (test xpum=2941) CLAU MULLINS W/ FLUORO NEPH, TUBE [id number] 19:42:00FINAL REPORT Fluoroscopic guided bilateral nephrostomy tube exchange, 05/06/2018. Clinical History: Ureteral obstruction, clogged right PCN. Modality: Fluoroscopy. Well Control Instructor: Jenny. Pasteurizing Supervisor: Biju. Sedation: None. Estimated Blood Loss: Less [...] catheter was removed and a new 8 [facility] 24 cm nephroureterostomy catheter was advanced over the wire into the bladder. Pigtail was locked. Contrast was injected into the right PCN. A Glidewire was advanced through the catheter and curled within the right renal pelvis. The old catheter was removed and a new 12 [facility] pigtail catheter was placed into the right [...] Verified Date/ Time: 05/06/2018 19:42:30 Reading Location: [place] [address] Angio Body Reading Room URINE [id number] 12:31:00 Test Item Value Reference Range Comments CULTURE (BEAKER) (test dnce=8314) >100,000 col/mL skin thomas ANG, NEPHROSTOMY TUBE CHANGE, [id number] 17:42:00Reason for exam:->Tube not drainingFINAL REPORT Right nephrostomy catheter exchange. History: Malfunction right nephrostomy catheter Modality: Fluoroscopy Sedation:None Well Control Instructor: Gerald Baeza MD. Pasteurizing Supervisor: None. Approach: Right flank Estimated blood loss: [...] existing catheter was cut and a 0.035 [employer] wire was advancedthrough the catheter and coiled within the right renal pelvis. The existing catheter was removed over wire. A new 10.2 [facility] nephrostomy catheter was advanced over wire with pigtail formed within the right renal pelvis. Contrast injection confirmed positioning. The catheter was fixed to the skin withsilk suture. A sterile dressing was applied. The patient tolerated the procedure well without immediate application. Impression: Successful right percutaneous nephrostomy catheter exchange. Signed: Gerald Baeza MDReport Verified Date/Time: 04/09/2018 17:42:07 Reading Location: [place] [address] Angio Body Reading Room URINALYSIS W/ [id number] 14 :48:00 Test Item Value Reference Range Comments COLOR (BEAKER) (test dxmm=569) Yellow CLARITY (BEAKER) (test hjtj=020) Hazy SPECIFIC GRAVITY UA (BEAKER) (test hnat=846) 1.013 1.001-1.035 PH UA (BEAKER) (test ldrg=367) 8.5 5.0-8.0 PROTEIN UA (BEAKER) (test swdj=566) 300 mg/dL Negative GLUCOSE UA (BEAKER) (test vbna=797) Negative Negative KETONES UA (BEAKER) (test zsww=679) Negative Negative BILIRUBIN UA (BEAKER) (test iwcm=570) Negative Negative BLOOD UA (BEAKER) (test itue=934) Trace Negative NITRITE UA (BEAKER) (test zquv=579) Negative Negative LEUKOCYTE ESTERASE UA (BEAKER) (test wgac=342) Large Negative UROBILINOGEN UA (BEAKER) (test yjoj=964) 0.2 mg/dL 0.2-1.0 RBC UA (BEAKER) (test hzfh=967) 23 /HPF WBC UA (BEAKER) (test llbe=581) 0 /HPF MUCUS (BEAKER) (test zwvq=1245) Occasional TRIPLE PHOSPHATE CRYSTALS (BEAKER) (test Occasional xcnw=5735) SOURCE(BEAKER) (test yvgq=8857) Urine, [place] BASIC METABOLIC [id number] 14:16:00 Test Item Value Reference Range Comments SODIUM (BEAKER) (test 138 meq/L 136-145 lkbd=825) POTASSIUM (BEAKER) (test 3.8 meq/L 3.5-5.1 xgzw=149) CHLORIDE (BEAKER) (test 104 meq/L 98-107 hdkj=547) CO2 (BEAKER) (test 23 meq/L 22-29 twrh=565) BLOOD UREA NITROGEN 30 mg/dL 7-21 (BEAKER) (test xtmo=238) CREATININE (BEAKER) (test 1.00 mg/dL 0.57-1.25 forf=977) GLUCOSE RANDOM (BEAKER) 89 mg/dL 70-105 (test ffjv=057) CALCIUM (BEAKER) (test 9.6 mg/dL 8.4-10.2 ydxf=407) EGFR (BEAKER) (test 54 mL/min/1.73 sq m ESTIMATED GFR IS NOT gijb=2506) ACCURATE CREATININE CLEARANCE IN PREDICTING GLOMERULAR FILTRATION RATE. ESTIMATED GFR IS NOT APPLICABLE FOR DIALYSIS PATIENTS. [id number] 14:06:00 Test Item Value Reference Range Comments PROTIME (BEAKER) (test ygwa=995) 13.8 seconds 11.7-14.7 INR (BEAKER) (test nsgm=372) 1.1 <=5.9 PARTIAL THROMBOPLASTIN TIME (BEAKER) (test 30.3 seconds 22.5-36.0 itrq=372) RECOMMENDED COUMADIN/WARFARIN INR THERAPY RANGESSTANDARD DOSE: 2.0 - 3.0 Includes: PROPHYLAXIS forvenous thrombosis, systemic embolization; TREATMENT for venous thrombosis and/or pulmonary embolus.HIGH RISK: Target INR is 2.5-3.5 for patients with mechanical heart valves.CBC W/PLT COUNT & AUTO [id number] 13:53:00 Test Item Value Reference Range Comments WHITE BLOOD CELL COUNT (BEAKER) (test asgd=507) 7.1 K/ L 3.5-10.5 RED BLOOD CELL COUNT (BEAKER) (test xaxo=235) 3.32 M/ L 3.93-5.22 HEMOGLOBIN (BEAKER) (test xjpk=611) 10.5 GM/DL 11.2-15.7 HEMATOCRIT (BEAKER) (test jpzx=466) 32.0 % 34.1-44.9 MEAN CORPUSCULAR VOLUME (BEAKER) (test tddu=676) 96.4 fL 79.4-94.8 MEAN CORPUSCULAR HEMOGLOBIN (BEAKER) (test 31.6 pg 25.6-32.2 watx=876) MEAN CORPUSCULAR HEMOGLOBIN CONC (BEAKER) (test 32.8 GM/DL 32.2-35.5 zrol=238) RED CELL DISTRIBUTION WIDTH (BEAKER) (test 14.6 % 11.7-14.4 rzjn=940) PLATELET COUNT (BEAKER) (test inrq=322) 228 K/CU MM 150-450 MEAN PLATELET VOLUME (BEAKER) (test oezs=420) 10.8 fL 9.4-12.3 NUCLEATED RED BLOOD CELLS (BEAKER) (test 0 /100 WBC 0-0 lwtw=042) NEUTROPHILS RELATIVE PERCENT (BEAKER) (test 68 % uffd=264) LYMPHOCYTES RELATIVE PERCENT (BEAKER) (test 18 % yqxp=897) MONOCYTES RELATIVE PERCENT (BEAKER) (test 13 % vksp=225) EOSINOPHILS RELATIVE PERCENT (BEAKER) (test 1 % rglv=106) BASOPHILS RELATIVE PERCENT (BEAKER) (test 0 % figy=161) NEUTROPHILS ABSOLUTE COUNT (BEAKER) (test 4.78 K/ L 1.56-6.13 bzps=919) LYMPHOCYTES ABSOLUTE COUNT (BEAKER) (test 1.24 K/ L 1.18-3.74 gvpi=620) MONOCYTES ABSOLUTE COUNT (BEAKER) (test 0.91 K/ L 0.24-0.36 zskz=072) EOSINOPHILS ABSOLUTE COUNT (BEAKER) (test 0.07 K/ L 0.04-0.36 uonw=333) BASOPHILS ABSOLUTE COUNT (BEAKER) (test 0.02 K/ L 0.01-0.08 tikb=798) IMMATURE GRANULOCYTES-RELATIVE PERCENT (BEAKER) 0 % 0-1 (test pinj=5493) HARPREET NEPHROSTOMY TUBE CHANGE, [id number] 09:41:00Reason for exam:-> dysfunction nephrostomy tube on [...] removed over a wire. A new 10.2 [facility] pigtail nephrostomy catheter was placed over the [...] as (Ka,r): 6.3 mGy Signed: Leslie العراقي Verified Date/Time: 03/15/2018 09:41:31 Reading Location:[place] [address] Angio Body Reading Room NEPHROSTOMY TUBE CHANGE, [id number] 16:05:00Reason for Exam:->n13.30FINAL REPORT Left percutaneous nephroureterostomy and right percutaneous nephrostomy catheter exchange. History: 77 -year-old female with history of ureteral strictures presents for routine catheter exchange. Modality: FluoroscopySedation: None Well Control Instructor: Gerald Baeza MD. Pasteurizing Supervisor: None. Approach: Bilateral flanks Estimated blood loss: [...] for performing radiologist and scrub technologist. A office nurse image images was obtained. Contrast was injected through the indwelling left percutaneous nephroureterostomy catheter confirming position. 2% lidocaine was used for local anesthesia. The indwelling catheter was cut and a 0.035 Bentson wire was advanced and coiled within the urinary bladder. The existing catheter was removed over wire and a new 8.5 [facility] by 22 cm nephroureterostomy was advanced over [...] was removed thewire and a new 10.2 [facility] pigtail catheter was advanced over wire with pigtail formed within the right renal pelvis. The catheter was fixed to the skin with silk suture and dressing was applied. The patient tolerated the procedure well without immediate complication. Impression: Successful fluoroscopic-guided left percutaneous nephroureterostomy and right percutaneous nephrostomy catheter exchange. Signed: Gerald Baeza MDReport Verified Date/Time: 02/24/2018 16:05:12 Reading Location: [address] Body Reading Room Electronically signed by: GERALD BAEZA MD on 2017 04:05 PMANG, NEPHROSTOMY TUBE CHANGE, [id number] 16:05:00Reason for Exam:->n13.30FINAL REPORT Left percutaneous nephroureterostomy and right percutaneous nephrostomy catheter exchange. History: 77-year-old female with history of ureteral strictures presents for routine catheter exchange. Modality: FluoroscopySedation: None Well Control Instructor: Gerald Baeza MD. Pasteurizing Supervisor: None. Approach: Bilateral flanks Estimated blood loss: [...] for performing radiologist and scrub technologist. A office nurse image images was obtained. Contrast was injected through the indwelling left percutaneous nephroureterostomy catheter confirming position. 2% lidocaine was used for local anesthesia. The indwelling catheter was cut and a 0.035 Bentson wire was advanced and coiled within the urinary bladder. The existing catheter was removed over wire and a new 8.5 [facility] by 22 cm nephroureterostomy was advanced over [...] was removed thewire and a new 10.2 [facility] pigtail catheter was advanced over wire with pigtail formed within the right renal pelvis. The catheter was fixed to the skin with silk suture and dressing was applied. The patient tolerated the procedure well without immediate complication. Impression: Successful fluoroscopic-guided left percutaneous nephroureterostomy and right percutaneous nephrostomy catheter exchange. Signed: Gerald Baeza MDRjosuéort Verified Date/Time: 02/24/2018 16:05:12 Reading Location: [place] [address] Angio Body Reading Room Electronically signed by: GERALD BAEAZ MD on 2017 04:05 PMANG, NEPHROSTOMY TUBE CHANGE, [id number] 17:02:00Reason for exam:->ABDOMINAL PAIN, flank pain, blockageFINAL [...] removed over a Bentsonwire. A new 10.2 [facility] pigtail nephrostomy catheter was placed over the [...] as (Ka,r): 15.1 mGy. Signed: Leslie العراقي Verified Date/Time : 12/29/2017 17:02:02 Reading Location: [place] [address] Angio Body Reading Room URINE [id number] 12:00:00 Test Item Value Reference Range Comments CULTURE (BEAKER) (test wkxb=5772) >100,000 col/mL skin thomas URINALYSIS W/ [id number] 10:15:00 Test Item Value Reference Range Comments COLOR (BEAKER) (test nnfi=111) Mandan CLARITY (BEAKER) (test kuyy=508) Cloudy SPECIFIC GRAVITY UA (BEAKER) (test 1.021 1.001-1.035 nqmr=426) PH UA (BEAKER) (test cpkt=575) 8.5 5.0-8.0 PROTEIN UA (BEAKER) (test tmpd=352) >600 mg/dL Negative GLUCOSE UA (BEAKER) (test areg=096) Negative Negative KETONES UA (BEAKER) (test jjlb=566) Negative Negative BILIRUBIN UA (BEAKER) (test apcu=090) Positive Negative BLOOD UA (BEAKER) (test hsed=913) Negative Negative NITRITE UA (BEAKER) (test kchz=868) Positive Negative LEUKOCYTE ESTERASE UA (BEAKER) (test Small Negative omuz=217) UROBILINOGEN UA (BEAKER) (test jzrq=970) 2.0 mg/dL 0.2-1.0 RBC UA (BEAKER) (test qnsa=728) 0 /HPF WBC UA (BEAKER) (test zjlv=261) 94 /HPF MUCUS (BEAKER) (test cldp=1556) Occasional TRIPLE PHOSPHATE CRYSTALS (BEAKER) (test Moderate fhqa=8902) SOURCE(BEAKER) (test omui=3936) Urine, Nephrostomy BASIC METABOLIC [id number] 10:04:00 Test Item Value Reference Range Comments SODIUM (BEAKER) (test 137 meq/L 136-145 mror=885) POTASSIUM (BEAKER) (test 5.0 meq/L 3.5-5.1 dghh=145) CHLORIDE (BEAKER) (test 104 meq/L 98-107 zsot=090) CO2 (BEAKER) (test 25 meq/L 22-29 fdtx=078) BLOOD UREA NITROGEN 39 mg/dL 7-21 (BEAKER) (test obxe=931) CREATININE (BEAKER) (test 1.13 mg/dL 0.57-1.25 dgmv=392) GLUCOSE RANDOM (BEAKER) 127 mg/dL 70-105 (test uveg=033) CALCIUM (BEAKER) (test 9.0 mg/dL 8.4-10.2 wppf=786) EGFR (BEAKER) (test 47 mL/min/1.73 sq m ESTIMATED GFR IS NOT afiy=5034) ACCURATE CREATININE CLEARANCE IN PREDICTING GLOMERULAR FILTRATION RATE. ESTIMATED GFR IS NOT APPLICABLE FOR DIALYSIS PATIENTS. [id number] 09:53:00 Test Item Value Reference Range Comments PROTIME (BEAKER) (test cvoo=430) 13.0 seconds 11.7-14.7 INR (BEAKER) (test qetj=492) 1.0 <=5.9 PARTIAL THROMBOPLASTIN TIME (BEAKER) (test 28.9 seconds 22.5-36.0 dggj=638) RECOMMENDED COUMADIN/WARFARIN INR THERAPY RANGESSTANDARD DOSE: 2.0 - 3.0 Includes: PROPHYLAXIS forvenous thrombosis, systemic embolization; TREATMENT for venous thrombosis and/or pulmonary embolus.HIGH RISK: Target INR is 2.5-3.5 for patients with mechanical heart valves.CBC W/PLT COUNT & AUTO [id number] 09:52:00 Test Item Value Reference Range Comments WHITE BLOOD CELL COUNT (BEAKER) (test hsyk=270) 10.4 K/ L 3.5-10.5 RED BLOOD CELL COUNT (BEAKER) (test jqwj=130) 3.48 M/ L 3.93-5.22 HEMOGLOBIN (BEAKER) (test nprm=991) 10.8 GM/DL 11.2-15.7 HEMATOCRIT (BEAKER) (test pcnp=377) 34.4 % 34.1-44.9 MEAN CORPUSCULAR VOLUME (BEAKER) (test rzcp=363) 98.9 fL 79.4-94.8 MEAN CORPUSCULAR HEMOGLOBIN (BEAKER) (test 31.0 pg 25.6-32.2 snwv=721) MEAN CORPUSCULAR HEMOGLOBIN CONC (BEAKER) (test 31.4 GM/DL 32.2-35.5 ewgi=283) RED CELL DISTRIBUTION WIDTH (BEAKER) (test 14.0 % 11.7-14.4 eirn=972) PLATELET COUNT (BEAKER) (test kqrn=309) 255 K/CU MM 150-450 MEAN PLATELET VOLUME (BEAKER) (test xxqw=933) 10.6 fL 9.4-12.3 NUCLEATED RED BLOOD CELLS (BEAKER) (test 0 /100 WBC 0-0 ohqz=944) NEUTROPHILS RELATIVE PERCENT (BEAKER) (test 82 % bxzj=622) LYMPHOCYTES RELATIVE PERCENT (BEAKER) (test 9 % yqmt=500) MONOCYTES RELATIVE PERCENT (BEAKER) (test 8 % fjmz=040) EOSINOPHILS RELATIVE PERCENT (BEAKER) (test 1 % ijoc=192) BASOPHILS RELATIVE PERCENT (BEAKER) (test 0 % mvxy=797) NEUTROPHILS ABSOLUTE COUNT (BEAKER) (test 8.58 K/ L 1.56-6.13 tphv=968) LYMPHOCYTES ABSOLUTE COUNT (BEAKER) (test 0.95 K/ L 1.18-3.74 prom=766) MONOCYTES ABSOLUTE COUNT (BEAKER) (test 0.79 K/ L 0.24-0.36 tvun=601) EOSINOPHILS ABSOLUTE COUNT (BEAKER) (test 0.05 K/ L 0.04-0.36 qbys=550) BASOPHILS ABSOLUTE COUNT (BEAKER) (test 0.02 K/ L 0.01-0.08 vgxj=117) IMMATURE GRANULOCYTES-RELATIVE PERCENT (BEAKER) 0 % 0-1 (test hddp=2267) URINE [id number] 09:49:00 Test Item Value Reference Range Comments CULTURE (BEAKER) (test jsfp=1962) Amikacin (test code=1) Susceptible 0-16 , Resistant <0 or >16 Aztreonam (test code=32) Susceptible 0-8 , Resistant <0 or >8 Cefepime (test code=51) Susceptible 0-8 , Resistant <0 or >8 Ceftazidime (test code=27) Susceptible 0-8 , Resistant <0 or >8 Ciprofloxacin (test code=7) Susceptible 0-1 , Resistant <0 or >1 Doripenem (test ttcw=501) Susceptible 0-2 , Resistant <0 or >2 [...] or >4 CULTURE (BEAKER) (test 80-89,000 col/mL dgac=2938) Pseudomonas aeruginosa >100,000 col/mL skin floraANG, NEPHROSTOMY TUBE CHANGE, [id number] 09:10: 00Reason for exam:->ABDOMINAL PAINFINAL REPORT Fluoroscopic guided bilateral nephrostomy tube exchange ClinicalHistory: Abdominal pain, bilateral percutaneous nephrostomy catheter. Modality: Sonography and fluoroscopy Well Control Instructor: Star Brown MD. Pasteurizing Supervisor : None.. SEDATION: None. Estimated Blood Loss: [...] catheter into the bladder. A new 8.5 [facility] by 24 cm nephroureteral catheter was placed. [...] catheter into the bladder. A new 10 [facility] pigtail catheter was placed. The wire was [...] Impression: 1. Uncomplicated exchange of left 8.5 [facility] by 24 cm nephroureteral catheter. 2. Uncomplicated exchange of right 10 [address] [facility] percutaneous nephrostomy catheter. Signed: Star Brown MDReportVerified Date/Time: 12/14/2017 09:10:40 Reading Location: [facility] C013Y CT Body Reading Room Electronically signed by: STAR BROWN MD on 10/2018 09:10 AMANG, NEPHROSTOMY TUBE CHANGE, [id number] 09:10:00Reason for exam:->ABDOMINAL PAINFINAL REPORT Fluoroscopic guided bilateral nephrostomy tube exchange ClinicalHistory: Abdominal pain, bilateral percutaneous nephrostomy catheter. Modality: Sonography and fluoroscopy Well Control Instructor: Star Brown MD. Pasteurizing Supervisor: None.. SEDATION: None. Estimated Blood Loss: Less [...] catheter into the bladder. A new 8.5 [facility] by 24 cm nephroureteral catheter was placed. [...] catheter into the bladder. A new 10 [address] [facility] pigtail catheter was placed. The wire was [...] Impression: 1. Uncomplicated exchange of left 8.5 [facility] by 24 cm nephroureteral catheter. 2. Uncomplicated exchange of right 10 [facility] percutaneous nephrostomy catheter. Signed: Star Brown MDReportVerified Date/Time: 12/14/2017 09:10:40 Reading Location: [facility] C013Y CT Body Reading Room Electronically signed by: STAR BROWN MD on 10/2018 09:10 AMCBC W/PLT COUNT & AUTO [id number] 15:37:00 Test Item Value Reference Range Comments WHITE BLOOD CELL COUNT (BEAKER) (test mkln=131) 11.1 K/ L 3.5-10.5 RED BLOOD CELL COUNT (BEAKER) (test yltm=484) 3.52 M/ L 3.93-5.22 HEMOGLOBIN (BEAKER) (test mzuv=188) 11.2 GM/DL 11.2-15.7 HEMATOCRIT (BEAKER) (test wwqq=719) 35.3 % 34.1-44.9 MEAN CORPUSCULAR VOLUME (BEAKER) (test cfhm=732) 100.3 fL 79.4-94.8 MEAN CORPUSCULAR HEMOGLOBIN (BEAKER) (test 31.8 pg 25.6-32.2 yubk=465) MEAN CORPUSCULAR HEMOGLOBIN CONC (BEAKER) (test 31.7 GM/DL 32.2-35.5 uqio=174) RED CELL DISTRIBUTION WIDTH (BEAKER) (test 13.2 % 11.7-14.4 aerc=794) PLATELET COUNT (BEAKER) (test hxto=413) 353 K/CU MM 150-450 MEAN PLATELET VOLUME (BEAKER) (test bzfq=584) 10.6 fL 9.4-12.3 NUCLEATED RED BLOOD CELLS (BEAKER) (test 0 /100 WBC 0-0 quaz=972) NEUTROPHILS RELATIVE PERCENT (BEAKER) (test 83 % xwwn=368) LYMPHOCYTES RELATIVE PERCENT (BEAKER) (test 8 % vmnx=819) MONOCYTES RELATIVE PERCENT (BEAKER) (test 8 % qkuz=691) EOSINOPHILS RELATIVE PERCENT (BEAKER) (test 1 % vhjl=668) BASOPHILS RELATIVE PERCENT (BEAKER) (test 0 % cgut=159) NEUTROPHILS ABSOLUTE COUNT (BEAKER) (test 9.20 K/ L 1.56-6.13 xavd=720) LYMPHOCYTES ABSOLUTE COUNT (BEAKER) (test 0.87 K/ L 1.18-3.74 iifx=625) MONOCYTES ABSOLUTE COUNT (BEAKER) (test 0.91 K/ L 0.24-0.36 lfss=704) EOSINOPHILS ABSOLUTE COUNT (BEAKER) (test 0.07 K/ L 0.04-0.36 eoli=476) BASOPHILS ABSOLUTE COUNT (BEAKER) (test 0.03 K/ L 0.01-0.08 xbtc=521) IMMATURE GRANULOCYTES-RELATIVE PERCENT (BEAKER) 1 % 0-1 (test dvge=7418) BASIC METABOLIC [id number] 15:27:00 Test Item Value Reference Range Comments SODIUM (BEAKER) (test 132 meq/L 136-145 pqic=160) POTASSIUM (BEAKER) (test 5.1 meq/L 3.5-5.1 xxvw=123) CHLORIDE (BEAKER) (test 99 meq/L 98-107 spqw=409) CO2 (BEAKER) (test 24 meq/L 22-29 ttkc=134) BLOOD UREA NITROGEN 36 mg/dL 7-21 (BEAKER) (test pigo=234) CREATININE (BEAKER) (test 1.25 mg/dL 0.57-1.25 wrez=406) GLUCOSE RANDOM (BEAKER) 117 mg/dL 70-105 (test wzar=493) CALCIUM (BEAKER) (test 9.4 mg/dL 8.4-10.2 smdl=494) EGFR (BEAKER) (test 42 mL/min/1.73 sq m ESTIMATED GFR IS NOT majv=2190) ACCURATE CREATININE CLEARANCE IN PREDICTING GLOMERULAR FILTRATION RATE. ESTIMATED GFR IS NOT APPLICABLE FOR DIALYSIS PATIENTS. URINALYSIS W/ [id number] 15:22:00 Test Item Value Reference Range Comments COLOR (BEAKER) (test abjp=219) Light Yellow CLARITY (BEAKER) (test ydpr=250) Hazy SPECIFIC GRAVITY UA (BEAKER) (test 1.007 1.001-1.035 mrhx=933) PH UA (BEAKER) (test qnpc=986) 5.5 5.0-8.0 PROTEIN UA (BEAKER) (test rbpq=033) 50 mg/dL Negative GLUCOSE UA (BEAKER) (test ooca=225) Negative Negative KETONES UA (BEAKER) (test iarp=263) Negative Negative BILIRUBIN UA (BEAKER) (test pnqn=663) Negative Negative BLOOD UA (BEAKER) (test ekwt=801) Small Negative NITRITE UA (BEAKER) (test rnmq=252) Positive Negative LEUKOCYTE ESTERASE UA (BEAKER) (test Large Negative pgjm=100) UROBILINOGEN UA (BEAKER) (test math=492) 0.2 mg/dL 0.2-1.0 RBC UA (BEAKER) (test jcmn=599) 22 /HPF WBC UA (BEAKER) (test pnvf=757) 24 /HPF MUCUS (BEAKER) (test gxrd=5505) Rare SQUAMOUS EPITHELIAL (BEAKER) (test < /HPF lfkv=281) HYALINE CASTS (BEAKER) (test wnkd=655) 2 /LPF SOURCE(BEAKER) (test mgky=1586) Urine, Nephrostomy ANG, NEPHROSTOMY TUBE CHANGE, [id number] 18:37:00Reason for Exam:-> N13.30FINAL REPORT Procedure: Replacement [...] guidewire and replaced with a fresh 8.5 [facility] Lucian device with its tip in the renal pelvis. Approximately 80 cc of urine were removed. The left nephroureteral stent was removed over guidewire and a fresh 8.5 [facility] Lucian by 24 cm nephroureteral stent placed with itstip in the bladder. Contrast was injected into each of the nephrostomy catheters confirming satisfactory positioning. CONCLUSION: Replacement of bilateral nephrostomy catheters. Signed: Tha Cheung MDReport Verified Date/Time: 11/19 18:37:20 Reading Location: [place] [address] Angio Body Reading Room ANG, NEPHROSTOMY TUBE CHANGE, [id number] 15:09:00Reason for exam:->FLANK PAINFINAL REPORT Exam: Right [...] tube was exchanged for a new 8.5 [facility] [place]ian nephrostomy tube with the tip advanced to [...] MDReport Verified Date/Time: 10/31/2017 15:09:40 Reading Location: [place] [address] Angio Body Reading Room RAD, ABDOMEN, 2 OR MORE [id number] 14:41:00Reason for exam:->FLANK PAINFINAL REPORT Four views [...] Verified Date/ Time: 10/31/2017 14:41:15 Reading Location: [address] Consult Reading Room [facility] METABOLIC [id number] 12:03:00 Test Item Value Reference Range Comments SODIUM (BEAKER) (test 139 meq/L 136-145 copb=801) POTASSIUM (BEAKER) (test 4.8 meq/L 3.5-5.1 kauw=165) CHLORIDE (BEAKER) (test 106 meq/L 98-107 fmuy=576) CO2 (BEAKER) (test 22 meq/L 22-29 ieoh=998) BLOOD UREA NITROGEN 34 mg/dL 7-21 (BEAKER) (test mrws=695) CREATININE (BEAKER) (test 1.03 mg/dL 0.57-1.25 ibqz=174) GLUCOSE RANDOM (BEAKER) 163 mg/dL 70-105 (test fiea=592) CALCIUM (BEAKER) (test 9.5 mg/dL 8.4-10.2 iubz=585) EGFR (BEAKER) (test 52 mL/min/1.73 sq m ESTIMATED GFR IS NOT ldwt=1680) ACCURATE CREATININE CLEARANCE IN PREDICTING GLOMERULAR FILTRATION RATE. ESTIMATED GFR IS NOT APPLICABLE FOR DIALYSIS PATIENTS. CBC W/PLT COUNT & AUTO [id number] 11:30:00 Test Item Value Reference Range Comments WHITE BLOOD CELL COUNT (BEAKER) (test qrhk=614) 9.1 K/ L 3.5-10.5 RED BLOOD CELL COUNT (BEAKER) (test lwmi=946) 3.56 M/ L 3.93-5.22 HEMOGLOBIN (BEAKER) (test nbpr=293) 11.3 GM/DL 11.2-15.7 HEMATOCRIT (BEAKER) (test ewds=927) 35.6 % 34.1-44.9 MEAN CORPUSCULAR VOLUME (BEAKER) (test xuid=901) 100.0 fL 79.4-94.8 MEAN CORPUSCULAR HEMOGLOBIN (BEAKER) (test 31.7 pg 25.6-32.2 nomc=149) MEAN CORPUSCULAR HEMOGLOBIN CONC (BEAKER) (test 31.7 GM/DL 32.2-35.5 xrcr=697) RED CELL DISTRIBUTION WIDTH (BEAKER) (test 14.3 % 11.7-14.4 davw=079) PLATELET COUNT (BEAKER) (test tqzp=429) 323 K/CU MM 150-450 MEAN PLATELET VOLUME (BEAKER) (test cvqn=084) 10.1 fL 9.4-12.3 NUCLEATED RED BLOOD CELLS (BEAKER) (test 0 /100 WBC 0-0 pgev=528) NEUTROPHILS RELATIVE PERCENT (BEAKER) (test 86 % wpie=980) LYMPHOCYTES RELATIVE PERCENT (BEAKER) (test 9 % qjcc=601) MONOCYTES RELATIVE PERCENT (BEAKER) (test 5 % uzby=265) EOSINOPHILS RELATIVE PERCENT (BEAKER) (test 0 % zpyx=330) BASOPHILS RELATIVE PERCENT (BEAKER) (test 0 % nlko=539) NEUTROPHILS ABSOLUTE COUNT (BEAKER) (test 7.75 K/ L 1.56-6.13 ubsb=538) LYMPHOCYTES ABSOLUTE COUNT (BEAKER) (test 0.78 K/ L 1.18-3.74 rcst=698) MONOCYTES ABSOLUTE COUNT (BEAKER) (test 0.47 K/ L 0.24-0.36 xpmx=515) EOSINOPHILS ABSOLUTE COUNT (BEAKER) (test 0.00 K/ L 0.04-0.36 ygct=128) BASOPHILS ABSOLUTE COUNT (BEAKER) (test 0.02 K/ L 0.01-0.08 kvpm=834) IMMATURE GRANULOCYTES-RELATIVE PERCENT (BEAKER) 0 % 0-1 (test zedy=4896) [id number] 11:17:00 Test Item Value Reference Range Comments PROTIME (BEAKER) (test eggt=335) 14.4 seconds 11.7-14.7 INR (BEAKER) (test ppmw=096) 1.1 <=5.9 PARTIAL THROMBOPLASTIN TIME (BEAKER) (test 31.3 seconds 22.5-36.0 mgzv=288) RECOMMENDED COUMADIN/WARFARIN INR THERAPY RANGESSTANDARD DOSE: 2.0 - 3.0 Includes: PROPHYLAXIS forvenous thrombosis, systemic embolization; TREATMENT for venous thrombosis and/or pulmonary embolus.HIGH RISK: Target INR is 2.5-3.5 for patients with mechanical heart valves.BLOOD [id number] 11:00:00 Test Item Value Reference Range Comments CULTURE (BEAKER) (test klym=7725) No growth in 5 days BLOOD [id number] 11:00:00 Test Item Value Reference Range Comments CULTURE (BEAKER) (test gnis=5512) No growth in 5 days URINE [id number] 10:04:00 Test Item Value Reference Range Comments CULTURE (BEAKER) (test wjsw=7534) See comment >100,000 col/mL enteric organisms of >3 types including Pseudomonas species. No further workupperformed. Multiple organisms suggestive of colonization or contamination. Repeat collection recommended.URINE [id number] 13:38:00 Test Item Value Reference Range Comments CULTURE (BEAKER) (test razp=1994) >100,000 col/mL skin thomas POCT-GLUCOSE [id number] 12:45:00 Test Item Value Reference Range Comments POC-GLUCOSE METER (BEAKER) 120 mg/dL 70-110 TESTED AT [facility] [address] [place] [address] (test anhs=6581) [place] [id number] POCT-GLUCOSE [id number] 07:39:00 Test Item Value Reference Range Comments POC-GLUCOSE METER (BEAKER) 80 mg/dL 70-110 TESTED AT [address] (test qjzv=3742) [facility] [address] CBC W/PLT COUNT & AUTO [id number] 06:22:00 Test Item Value Reference Range Comments WHITE BLOOD CELL COUNT (BEAKER) (test wofe=249) 12.7 K/ L 3.5-10.5 RED BLOOD CELL COUNT (BEAKER) (test rjef=637) 3.13 M/ L 3.93-5.22 HEMOGLOBIN (BEAKER) (test djaf=333) 10.0 GM/DL 11.2-15.7 HEMATOCRIT (BEAKER) (test qudd=061) 31.2 % 34.1-44.9 MEAN CORPUSCULAR VOLUME (BEAKER) (test uxlm=196) 99.7 fL 79.4-94.8 MEAN CORPUSCULAR HEMOGLOBIN (BEAKER) (test 31.9 pg 25.6-32.2 geil=361) MEAN CORPUSCULAR HEMOGLOBIN CONC (BEAKER) (test 32.1 GM/DL 32.2-35.5 hczk=114) RED CELL DISTRIBUTION WIDTH (BEAKER) (test 14.4 % 11.7-14.4 loiz=455) PLATELET COUNT (BEAKER) (test xkzo=799) 239 K/CU MM 150-450 MEAN PLATELET VOLUME (BEAKER) (test pceg=745) 10.5 fL 9.4-12.3 NUCLEATED RED BLOOD CELLS (BEAKER) (test 0 /100 WBC 0-0 pwcw=947) NEUTROPHILS RELATIVE PERCENT (BEAKER) (test 81 % nekp=738) LYMPHOCYTES RELATIVE PERCENT (BEAKER) (test 7 % jtat=022) MONOCYTES RELATIVE PERCENT (BEAKER) (test 9 % hrac=989) EOSINOPHILS RELATIVE PERCENT (BEAKER) (test 1 % ovvj=300) BASOPHILS RELATIVE PERCENT (BEAKER) (test 0 % pkgr=228) NEUTROPHILS ABSOLUTE COUNT (BEAKER) (test 10.34 K/ L 1.56-6.13 plbu=628) LYMPHOCYTES ABSOLUTE COUNT (BEAKER) (test 0.94 K/ L 1.18-3.74 razs=385) MONOCYTES ABSOLUTE COUNT (BEAKER) (test 1.18 K/ L 0.24-0.36 kamq=724) EOSINOPHILS ABSOLUTE COUNT (BEAKER) (test 0.11 K/ L 0.04-0.36 sixd=277) BASOPHILS ABSOLUTE COUNT (BEAKER) (test 0.03 K/ L 0.01-0.08 qnpk=016) IMMATURE GRANULOCYTES-RELATIVE PERCENT (BEAKER) 1 % 0-1 (test ypyc=9801) [id number] 05:46:00 Test Item Value Reference Range Comments MAGNESIUM (BEAKER) (test zjhi=034) 1.4 mg/dL 1.6-2.6 BASIC METABOLIC [id number] 05:46:00 Test Item Value Reference Range Comments SODIUM (BEAKER) (test 135 meq/L 136-145 royi=659) POTASSIUM (BEAKER) (test 3.8 meq/L 3.5-5.1 wzmx=634) CHLORIDE (BEAKER) (test 104 meq/L 98-107 spfv=410) CO2 (BEAKER) (test 24 meq/L 22-29 czhn=452) BLOOD UREA NITROGEN 29 mg/dL 7-21 (BEAKER) (test pdvu=863) CREATININE (BEAKER) (test 1.00 mg/dL 0.57-1.25 jnuf=309) GLUCOSE RANDOM (BEAKER) 94 mg/dL 70-105 (test vgoc=776) CALCIUM (BEAKER) (test 8.4 mg/dL 8.4-10.2 jrnn=443) EGFR (BEAKER) (test 54 mL/min/1.73 sq m ESTIMATED GFR IS NOT akho=3857) ACCURATE CREATININE CLEARANCE IN PREDICTING GLOMERULAR FILTRATION RATE. ESTIMATED GFR IS NOT APPLICABLE FOR DIALYSIS PATIENTS. POCT-GLUCOSE [id number] 21:07:00 Test Item Value Reference Range Comments POC-GLUCOSE METER (BEAKER) 170 mg/dL 70-110 TESTED AT [facility] [address] [place] [address] (test bcai=7881) [facility] [address] ANG, NEPHROSTOMY TUBE CHANGE, [id number] 20:09:00FINAL REPORT Right nephrostomy catheter exchange. History: [...] the patient's medical record by the nurse. Well Control Instructor: Gerald Baeza MD. Pasteurizing Supervisor: MD Ulysses ( Fellow) Approach: Indwelling right [...] 2% lidocaine was used for local anesthesia. Monitor Tech images were obtained demonstrating right nephrostomy catheter retracted to a renal calyx. The indwelling tube was cut and a 0.035 wire was advanced into the right renal pelvis. The existing catheter was removed over wire and a new 8.5 [facility] Lucian percutaneous nephrostomy catheter was advanced over wire with pigtail formed within the renal pelvis. There was immediate return of urine. Contrast injection confirmed position. The catheter was fixed tothe skin with silk suture. A sterile dressing was applied. The patient tolerated procedure well without immediate complication. IMPRESSION: Successful right percutaneous nephrostomy catheter exchange. Signed: Gerald Baeza MDReport Verified Date/Time: 08/06/2017 20:09:03 Reading Location: [place] [address] Angio Body Reading Room Electronically signed by: GERALD BAEZA MD on 2016 08:09 PMURINALYSIS W/ [id number] 19:55:00 Test Item Value Reference Range Comments COLOR (BEAKER) (test ryle=403) Brittaney CLARITY (BEAKER) (test tquz=321) Cloudy SPECIFIC GRAVITY UA (BEAKER) (test 1.016 1.001-1.035 onfq=074) PH UA (BEAKER) (test uhje=045) 8.0 5.0-8.0 PROTEIN UA (BEAKER) (test cbyr=429) 300 mg/dL Negative GLUCOSE UA (BEAKER) (test rcwb=675) Negative Negative KETONES UA (BEAKER) (test nwww=894) Negative Negative BILIRUBIN UA (BEAKER) (test lisb=651) Negative Negative BLOOD UA (BEAKER) (test josl=891) Large Negative NITRITE UA (BEAKER) (test jeze=385) Negative Negative LEUKOCYTE ESTERASE UA (BEAKER) (test Large Negative kjwk=158) UROBILINOGEN UA (BEAKER) (test hlxe=433) 0.2 mg/dL 0.2-1.0 RBC UA (BEAKER) (test qula=235) > /HPF WBC UA (BEAKER) (test ymya=122) > /HPF MUCUS (BEAKER) (test wsfk=5658) Rare SOURCE(BEAKER) (test kila=5550) Urine, Nephrostomy POCT-GLUCOSE [id number] 12:58:00 Test Item Value Reference Range Comments POC-GLUCOSE METER (BEAKER) 131 mg/dL 70-110 TESTED AT [facility] [address] [facility] (test lopl=0375) [facility] [address] HEMOGLOBIN [id number] 09:30:00 Test Item Value Reference Range Comments HEMOGLOBIN A1C (BEAKER) (test ehbz=658) 5.7 % 4.3-6.1 POCT-GLUCOSE [id number] 07:08:00 Test Item Value Reference Range Comments POC-GLUCOSE METER (VERONICA) 137 mg/dL 70-110 TESTED AT [facility] [address] [facility] (test rpkq=0633) [facility] [address] PT/[id number] 04:00:00 Test Item Value Reference Range Comments PROTIME (BEAKER) (test umiq=591) 13.4 seconds 11.7-14.7 INR (BEAKER) (test dhrn=600) 1.0 <=5.9 PARTIAL THROMBOPLASTIN TIME (BEAKER) (test 30.1 seconds 22.5-36.0 hmmh=886) RECOMMENDED COUMADIN/WARFARIN INR THERAPY RANGESSTANDARD DOSE: 2.0 - 3.0 Includes: PROPHYLAXIS forvenous thrombosis, systemic embolization; TREATMENT for venous thrombosis and/or pulmonary embolus.HIGH RISK: Target INR is 2.5-3.5 for patients with mechanical heart valves.U/S, RENAL, [id number] 03:58: 00Abdomen limited area? Add comment if [...] Verified Date/Time: 08/06/2017 03:58: 39 Reading Location: [facility] C013X Ortho Consult Reading Room URINALYSIS W / [id number] 01:01:00 Test Item Value Reference Range Comments COLOR (BEAKER) (test knzy=569) Light Yellow CLARITY (BEAKER) (test gexq=279) Hazy SPECIFIC GRAVITY UA (BEAKER) (test zemm=520) 1.011 1.001-1.035 PH UA (BEAKER) (test unzc=194) 7.0 5.0-8.0 PROTEIN UA (BEAKER) (test jisk=021) 200 mg/dL Negative GLUCOSE UA (BEAKER) (test sink=683) Negative Negative KETONES UA (BEAKER) (test iymw=435) Negative Negative BILIRUBIN UA (BEAKER) (test walc=290) Negative Negative BLOOD UA (BEAKER) (test bgtz=172) Moderate Negative NITRITE UA (BEAKER) (test fzck=860) Negative Negative LEUKOCYTE ESTERASE UA (BEAKER) (test czof=543) Moderate Negative UROBILINOGEN UA (BEAKER) (test ddmf=517) 0.2 mg/dL 0.2-1.0 RBC UA (BEAKER) (test geyt=732) 22 /HPF WBC UA (BEAKER) (test krdi=710) 26 /HPF BACTERIA (BEAKER) (test dozc=796) Occasional MUCUS (BEAKER) (test mmlu=2409) Rare SQUAMOUS EPITHELIAL (BEAKER) (test lpet=698) < /HPF HYALINE CASTS (BEAKER) (test eepw=598) 6 /LPF TRIPLE PHOSPHATE CRYSTALS (BEAKER) (test Rare dzip=4104) AMORPHOUS CRYSTALS (BEAKER) (test quxr=5149) Rare SOURCE(BEAKER) (test sevo=0912) Urine, Voided [id number] 23:21:00 Test Item Value Reference Range Comments LIPASE (BEAKER) (test isvu=787) 31 U/L 8-78 [id number] 23:21:00 Test Item Value Reference Range Comments AMYLASE (BEAKER) (test wpzf=418) 71 U/L 25-125 BASIC METABOLIC [id number] 23:21:00 Test Item Value Reference Range Comments SODIUM (BEAKER) (test 139 meq/L 136-145 ikff=283) POTASSIUM (BEAKER) (test 3.8 meq/L 3.5-5.1 mpog=488) CHLORIDE (BEAKER) (test 104 meq/L 98-107 bdzh=946) CO2 (BEAKER) (test 22 meq/L 22-29 fgvz=781) BLOOD UREA NITROGEN 29 mg/dL 7-21 (BEAKER) (test rokn=557) CREATININE (BEAKER) (test 1.01 mg/dL 0.57-1.25 yyvd=535) GLUCOSE RANDOM (BEAKER) 104 mg/dL 70-105 (test uttz=572) CALCIUM (BEAKER) (test 9.2 mg/dL 8.4-10.2 plne=451) EGFR (BEAKER) (test 54 mL/min/1.73 sq m ESTIMATED GFR IS NOT reqs=1511) ACCURATE CREATININE CLEARANCE IN PREDICTING GLOMERULAR FILTRATION RATE. ESTIMATED GFR IS NOT APPLICABLE FOR DIALYSIS PATIENTS. HEPATIC FUNCTION [id number] 23:21:00 Test Item Value Reference Range Comments TOTAL PROTEIN (BEAKER) (test hqbl=402) 7.3 gm/dL 6.0-8.3 ALBUMIN (BEAKER) (test axmg=5476) 3.5 g/dL 3.5-5.0 BILIRUBIN TOTAL (BEAKER) (test zsek=135) < mg/dL 0.2-1.2 BILIRUBIN DIRECT (BEAKER) (test dvxc=782) 0.1 mg/dL 0.1-0.5 ALKALINE PHOSPHATASE (BEAKER) (test hqzo=125) 92 U/L 40-150 AST (SGOT) (BEAKER) (test svmc=757) 17 U/L 5-34 ALT (SGPT) (BEAKER) (test kdwj=581) 12 U/L 6-55 CBC W/PLT COUNT & AUTO [id number] 23:15:00 Test Item Value Reference Range Comments WHITE BLOOD CELL COUNT (BEAKER) (test ahal=409) 13.0 K/ L 3.5-10.5 RED BLOOD CELL COUNT (BEAKER) (test xpxm=357) 3.64 M/ L 3.93-5.22 HEMOGLOBIN (BEAKER) (test cija=628) 11.6 GM/DL 11.2-15.7 HEMATOCRIT (BEAKER) (test oxvn=954) 36.0 % 34.1-44.9 MEAN CORPUSCULAR VOLUME (BEAKER) (test xxvc=895) 98.9 fL 79.4-94.8 MEAN CORPUSCULAR HEMOGLOBIN (BEAKER) (test 31.9 pg 25.6-32.2 vvhs=447) MEAN CORPUSCULAR HEMOGLOBIN CONC (BEAKER) (test 32.2 GM/DL 32.2-35.5 qzhf=267) RED CELL DISTRIBUTION WIDTH (BEAKER) (test 13.7 % 11.7-14.4 pgab=472) PLATELET COUNT (BEAKER) (test zyhq=286) 284 K/CU MM 150-450 MEAN PLATELET VOLUME (BEAKER) (test bjvv=308) 9.7 fL 9.4-12.3 NUCLEATED RED BLOOD CELLS (BEAKER) (test 0 /100 WBC 0-0 joct=667) NEUTROPHILS RELATIVE PERCENT (BEAKER) (test 80 % gjau=150) LYMPHOCYTES RELATIVE PERCENT (BEAKER) (test 10 % uvla=929) MONOCYTES RELATIVE PERCENT (BEAKER) (test 7 % hvky=706) EOSINOPHILS RELATIVE PERCENT (BEAKER) (test 2 % xstj=462) BASOPHILS RELATIVE PERCENT (BEAKER) (test 0 % ojtn=747) NEUTROPHILS ABSOLUTE COUNT (BEAKER) (test 10.38 K/ L 1.56-6.13 gazk=901) LYMPHOCYTES ABSOLUTE COUNT (BEAKER) (test 1.27 K/ L 1.18-3.74 ltan=780) MONOCYTES ABSOLUTE COUNT (BEAKER) (test 0.95 K/ L 0.24-0.36 gfim=417) EOSINOPHILS ABSOLUTE COUNT (BEAKER) (test 0.26 K/ L 0.04-0.36 dwbr=109) BASOPHILS ABSOLUTE COUNT (BEAKER) (test 0.05 K/ L 0.01-0.08 idfo=940) IMMATURE GRANULOCYTES-RELATIVE PERCENT (BEAKER) 0 % 0-1 (test kqax=4077) ANG, NEPHROSTOMY TUBE CHANGE, [id number] 11:25:00Reason for exam:->BACK PAINReason for exam:->FINAL REPORT Exchange of right percutaneous nephrostomy tube and left percutaneous nephroureteral stent. History: Back pain. Patient presented to the emergency department with a decreased drainage from the right nephrostomy catheter. Modality: Fluoroscopy Sedation: None Well Control Instructor: Star Georges MD. Pasteurizing Supervisor: None. Approach: ] Is approximately catheter and [...] exchanged over guidewire for a new 8.5 [facility] nephrostomy catheter. After the new catheter was placed contrast was injected which confirmed proper positioning. The catheter isin superior the patient's skin with 2-0 silk and connected to gravity drainage bag. The left nephroureteral stent was then exchanged over guidewire for a new 8.5 [facility] Lucian by 22 cm nephroureteral stent. The distal [...] Verified Date/Time: 07/08/2017 11:25: 07 Reading Location: [facility] B1 P048 Angio Body Reading Room URINALYSIS W/ [id number] 09:16:00 Test Item Value Reference Range Comments COLOR (BEAKER) (test tned=835) Yellow CLARITY (BEAKER) (test qffm=515) Hazy SPECIFIC GRAVITY UA (BEAKER) (test 1.018 1.001-1.035 dhlx=192) PH UA (BEAKER) (test rgfl=228) 7.5 5.0-8.0 PROTEIN UA (BEAKER) (test mxkd=191) 300 mg/dL Negative GLUCOSE UA (BEAKER) (test fptf=213) Negative Negative KETONES UA (BEAKER) (test mpnu=393) Negative Negative BILIRUBIN UA (BEAKER) (test mrta=030) Negative Negative BLOOD UA (BEAKER) (test jtmc=527) Small Negative NITRITE UA (BEAKER) (test pdkm=817) Negative Negative LEUKOCYTE ESTERASE UA (BEAKER) (test Moderate Negative eygh=799) UROBILINOGEN UA (BEAKER) (test ndnt=048) 0.2 mg/dL 0.2-1.0 RBC UA (BEAKER) (test qera=218) > /HPF WBC UA (BEAKER) (test kblc=000) > /HPF SQUAMOUS EPITHELIAL (BEAKER) (test 1 /HPF kwsr=163) SOURCE(BEAKER) (test icoe=8820) Urine, Nephrostomy CBC W/PLT COUNT & AUTO [id number] 08:56:00 Test Item Value Reference Range Comments WHITE BLOOD CELL COUNT (BEAKER) (test vgdg=273) 10.2 K/ L 3.5-10.5 RED BLOOD CELL COUNT (BEAKER) (test gatw=188) 3.40 M/ L 3.93-5.22 HEMOGLOBIN (BEAKER) (test sdab=745) 10.9 GM/DL 11.2-15.7 HEMATOCRIT (BEAKER) (test fajs=616) 33.7 % 34.1-44.9 MEAN CORPUSCULAR VOLUME (BEAKER) (test nijt=742) 99.1 fL 79.4-94.8 MEAN CORPUSCULAR HEMOGLOBIN (BEAKER) (test 32.1 pg 25.6-32.2 btoh=366) MEAN CORPUSCULAR HEMOGLOBIN CONC (BEAKER) (test 32.3 GM/DL 32.2-35.5 fojb=164) RED CELL DISTRIBUTION WIDTH (BEAKER) (test 15.2 % 11.7-14.4 xpro=515) PLATELET COUNT (BEAKER) (test cbrw=716) 317 K/CU MM 150-450 MEAN PLATELET VOLUME (BEAKER) (test sgjh=073) 9.8 fL 9.4-12.3 NUCLEATED RED BLOOD CELLS (BEAKER) (test 0 /100 WBC 0-0 amkb=884) NEUTROPHILS RELATIVE PERCENT (BEAKER) (test 79 % gyyz=376) LYMPHOCYTES RELATIVE PERCENT (BEAKER) (test 10 % wmer=727) MONOCYTES RELATIVE PERCENT (BEAKER) (test 9 % mdac=920) EOSINOPHILS RELATIVE PERCENT (BEAKER) (test 2 % kfuf=220) BASOPHILS RELATIVE PERCENT (BEAKER) (test 0 % diwd=463) NEUTROPHILS ABSOLUTE COUNT (BEAKER) (test 8.07 K/ L 1.56-6.13 supc=068) LYMPHOCYTES ABSOLUTE COUNT (BEAKER) (test 1.06 K/ L 1.18-3.74 qroi=135) MONOCYTES ABSOLUTE COUNT (BEAKER) (test 0.88 K/ L 0.24-0.36 dlng=756) EOSINOPHILS ABSOLUTE COUNT (BEAKER) (test 0.16 K/ L 0.04-0.36 fbcc=879) BASOPHILS ABSOLUTE COUNT (BEAKER) (test 0.02 K/ L 0.01-0.08 ibii=169) IMMATURE GRANULOCYTES-RELATIVE PERCENT (BEAKER) 1 % 0-1 (test meqj=7295) BASIC METABOLIC [id number] 08:48:00 Test Item Value Reference Range Comments SODIUM (BEAKER) (test 138 meq/L 136-145 erlg=356) POTASSIUM (BEAKER) (test 4.6 meq/L 3.5-5.1 hspj=350) CHLORIDE (BEAKER) (test 104 meq/L 98-107 ajif=760) CO2 (BEAKER) (test 23 meq/L 22-29 rllo=480) BLOOD UREA NITROGEN 40 mg/dL 7-21 (BEAKER) (test kbhy=129) CREATININE (BEAKER) (test 1.03 mg/dL 0.57-1.25 jvav=121) GLUCOSE RANDOM (BEAKER) 140 mg/dL 70-105 (test znwn=382) CALCIUM (BEAKER) (test 9.1 mg/dL 8.4-10.2 vyzy=969) EGFR (BEAKER) (test 52 mL/min/1.73 sq m ESTIMATED GFR IS NOT chma=8650) ACCURATE CREATININE CLEARANCE IN PREDICTING GLOMERULAR FILTRATION RATE. ESTIMATED GFR IS NOT APPLICABLE FOR DIALYSIS PATIENTS. URINE [id number] 08:09:00 Test Item Value Reference Range Comments CULTURE (BEAKER) (test STENOTROPHOMONAS >100,000 col/mL xfnw=2876) MALTOPHILIA Stenotrophomonas maltophilia Amikacin (test code=1) Ampicillin (test code=26) Ampicillin + Sulbactam (test code=6) Aztreonam (test code=32) Cefazolin (test code=9) Cefepime (test code=51) Ceftazidime (test Susceptible 0-8 , code=27) Resistant <0 or >8 Ceftriaxone (test code=52) Ciprofloxacin (test code=7) Doripenem (test rvlh=239) Ertapenem (test code=38) Gentamicin (test code=18) Imipenem (test code=19) Levofloxacin (test Susceptible 0-2 , code=22) Resistant <0 or >2 Meropenem (test code=34) Minocycline (test Susceptible 0-4 , code=35) Resistant <0 or >4 Nitrofurantoin (test code=23) Piperacillin (test code=24) Piperacillin + Tazobactam (test code=29) Tetracycline (test code=2) Ticarcillin + Clavulanic Acid (test code=80) Tigecycline (test pbma=064) Tobramycin (test code=25) Trimethoprim + Susceptible 0-40 Sulfamethoxazole (test , Resistant <0 or code=47) >40 CULTURE (BEAKER) (test COAGULASE NEGATIVE >100,000 col/mL cymj=9315) STAPHYLOCOCCUS Coagulase negative Staphylococcus Ampicillin (test numo=156) Ciprofloxacin (test code=72) Clindamycin (test code=10) Daptomycin (test code=59) Erythromycin (test code=4) Gentamicin (test fapn=817) Gentamicin High Level Synergy (test sykz=286) Levofloxacin (test code=22) Linezolid (test code=40) Moxifloxacin (test code=36) Nitrofurantoin (test code=23) Oxacillin (test code=14) Rifampin (test code=43) Streptomycin High Level Synergy (test etms=731) Tetracycline (test code=2) Tigecycline (test ajsj=6137) Trimethoprim + Sulfamethoxazole (test code=47) Vancomycin (test code=13) URINALYSIS W/ [id number] 10:28:00 Test Item Value Reference Range Comments COLOR (BEAKER) (test hzxk=496) Yellow CLARITY (BEAKER) (test khkp=394) Clear SPECIFIC GRAVITY UA (BEAKER) (test 1.014 1.001-1.035 sgwh=784) PH UA (BEAKER) (test ghgh=064) 6.0 5.0-8.0 PROTEIN UA (BEAKER) (test rwoh=352) 50 mg/dL Negative GLUCOSE UA (BEAKER) (test vmtg=354) Negative Negative KETONES UA (BEAKER) (test lfkx=129) Negative Negative BILIRUBIN UA (BEAKER) (test uftj=847) Negative Negative BLOOD UA (BEAKER) (test plrh=403) Trace Negative NITRITE UA (BEAKER) (test raib=047) Positive Negative LEUKOCYTE ESTERASE UA (BEAKER) (test Large Negative dlrl=762) UROBILINOGEN UA (BEAKER) (test iylu=277) 0.2 mg/dL 0.2-1.0 RBC UA (BEAKER) (test wckb=398) 1 /HPF WBC UA (BEAKER) (test mtac=446) 15 /HPF BACTERIA (BEAKER) (test xxrm=982) Rare HYALINE CASTS (BEAKER) (test ztna=904) 9 /LPF CRYSTALS, URINE (BEAKER) (test swwj=3022) Rare SOURCE(BEAKER) (test avsw=4460) Urine, Nephrostomy BASIC METABOLIC [id number] 10:18:00 Test Item Value Reference Range Comments SODIUM (BEAKER) (test 136 meq/L 136-145 vezu=197) POTASSIUM (BEAKER) (test 3.8 meq/L 3.5-5.1 nnkb=245) CHLORIDE (BEAKER) (test 100 meq/L 98-107 euyv=315) CO2 (BEAKER) (test 24 meq/L 22-29 wsaw=177) BLOOD UREA NITROGEN 26 mg/dL 7-21 (BEAKER) (test tkpa=160) CREATININE (BEAKER) (test 0.89 mg/dL 0.57-1.25 gcxz=374) GLUCOSE RANDOM (BEAKER) 82 mg/dL 70-105 (test okhp=049) CALCIUM (BEAKER) (test 9.3 mg/dL 8.4-10.2 dpoa=498) EGFR (BEAKER) (test 62 mL/min/1.73 sq m ESTIMATED GFR IS NOT mdaj=9848) ACCURATE CREATININE CLEARANCE IN PREDICTING GLOMERULAR FILTRATION RATE. ESTIMATED GFR IS NOT APPLICABLE FOR DIALYSIS PATIENTS. CBC W/PLT COUNT & AUTO [id number] 10:12:00 Test Item Value Reference Range Comments WHITE BLOOD CELL COUNT (BEAKER) (test qyqr=774) 9.6 K/ L 4.0-10.0 RED BLOOD CELL COUNT (BEAKER) (test cibu=970) 3.48 M/ L 4.00-5.00 HEMOGLOBIN (BEAKER) (test fuoc=525) 10.4 GM/DL 12.0-15.0 HEMATOCRIT (BEAKER) (test bffc=193) 33.0 % 36.0-45.0 MEAN CORPUSCULAR VOLUME (BEAKER) (test tzxx=435) 94.8 fL 82.0-99.0 MEAN CORPUSCULAR HEMOGLOBIN (BEAKER) (test 29.9 pg 27.0-33.0 sbam=010) MEAN CORPUSCULAR HEMOGLOBIN CONC (BEAKER) (test 31.5 GM/DL 32.0-36.0 jwqw=248) RED CELL DISTRIBUTION WIDTH (BEAKER) (test 15.7 % 10.3-14.2 iftt=946) PLATELET COUNT (BEAKER) (test yluy=901) 548 K/CU MM 150-430 MEAN PLATELET VOLUME (BEAKER) (test bvyj=444) 6.2 fL 6.5-10.5 NUCLEATED RED BLOOD CELLS (BEAKER) (test 0 /100 WBC 0-0 qiib=968) NEUTROPHILS RELATIVE PERCENT (BEAKER) (test 70 % onpu=744) LYMPHOCYTES RELATIVE PERCENT (BEAKER) (test 17 % rjgn=767) MONOCYTES RELATIVE PERCENT (BEAKER) (test 12 % mbns=470) EOSINOPHILS RELATIVE PERCENT (BEAKER) (test 2 % tzay=408) BASOPHILS RELATIVE PERCENT (BEAKER) (test 1 % dwjz=620) NEUTROPHILS ABSOLUTE COUNT (BEAKER) (test 6.65 K/ L 1.80-8.00 axtl=364) LYMPHOCYTES ABSOLUTE COUNT (BEAKER) (test 1.58 K/ L 1.48-4.50 rcbr=340) MONOCYTES ABSOLUTE COUNT (BEAKER) (test 1.11 K/ L 0.00-1.30 hlbf=331) EOSINOPHILS ABSOLUTE COUNT (BEAKER) (test 0.17 K/ L 0.00-0.50 wuro=822) BASOPHILS ABSOLUTE COUNT (BEAKER) (test 0.06 K/ L 0.00-0.20 ebgw=242) 0.00PT/[id number] 10:12:00 Test Item Value Reference Range Comments PROTIME (BEAKER) (test roht=124) 13.4 seconds 11.7-14.7 INR (BEAKER) (test bnny=320) 1.0 <=5.9 PARTIAL THROMBOPLASTIN TIME (BEAKER) (test 36.3 seconds 22.5-36.0 aepg=962) RECOMMENDED COUMADIN/WARFARIN INR THERAPY RANGESSTANDARD DOSE: 2.0 - 3.0 Includes: PROPHYLAXIS forvenous thrombosis, systemic embolization; TREATMENT for venous thrombosis and/or pulmonary embolus.HIGH RISK: Target INR is 2.5-3.5 for patients with mechanical heart valves.POCT-GLUCOSE [id number] 13:22:00 Test Item Value Reference Range Comments POC-GLUCOSE METER (BEAKER) 136 mg/dL 70-110 TESTED AT [address] (test uwiw=0166) [facility] [address] POCT-GLUCOSE [id number] 07:56:00 Test Item Value Reference Range Comments POC-GLUCOSE METER (BEAKER) 185 mg/dL 70-110 TESTED AT [address] (test moai=7632) [facility] [address] HEMOGLOBIN AND [id number] 06:36:00 Test Item Value Reference Range Comments HEMOGLOBIN (BEAKER) (test qaeu=830) 9.1 GM/DL 12.0-15.0 HEMATOCRIT (BEAKER) (test lnyh=583) 29.3 % 36.0-45.0 BASIC METABOLIC [id number] 06:21:00 Test Item Value Reference Range Comments SODIUM (BEAKER) (test 142 meq/L 136-145 rvqv=215) POTASSIUM (BEAKER) (test 3.8 meq/L 3.5-5.1 ggiw=797) CHLORIDE (BEAKER) (test 108 meq/L 98-107 wglr=920) CO2 (BEAKER) (test 22 meq/L 22-29 upcp=693) BLOOD UREA NITROGEN 30 mg/dL 7-21 (BEAKER) (test ijmv=418) CREATININE (BEAKER) (test 1.44 mg/dL 0.57-1.25 knaq=168) GLUCOSE RANDOM (BEAKER) 133 mg/dL 70-105 (test rynk=623) CALCIUM (BEAKER) (test 8.3 mg/dL 8.4-10.2 jgtg=040) EGFR (BEAKER) (test 36 mL/min/1.73 sq m ESTIMATED GFR IS NOT cjtr=6599) ACCURATE CREATININE CLEARANCE IN PREDICTING GLOMERULAR FILTRATION RATE. ESTIMATED GFR IS NOT APPLICABLE FOR DIALYSIS PATIENTS. [id number] 06:05:00 Test Item Value Reference Range Comments PROTIME (BEAKER) (test rmwd=053) 15.8 seconds 11.7-14.7 INR (BEAKER) (test kxne=071) 1.3 <=5.9 PARTIAL THROMBOPLASTIN TIME (BEAKER) (test 39.7 seconds 22.5-36.0 tptt=814) RECOMMENDED COUMADIN/WARFARIN INR THERAPY RANGESSTANDARD DOSE: 2.0 - 3.0 Includes: PROPHYLAXIS forvenous thrombosis, systemic embolization; TREATMENT for venous thrombosis and/or pulmonary embolus.HIGH RISK: Target INR is 2.5-3.5 for patients with mechanical heart valves.POCT-GLUCOSE [id number] 20:59:00 Test Item Value Reference Range Comments POC-GLUCOSE METER (BEAKER) 139 mg/dL 70-110 TESTED AT [facility] [address] [facility] (test gvdj=5770) [facility] [address] POCT-GLUCOSE [id number] 17:25:00 Test Item Value Reference Range Comments POC-GLUCOSE METER (BEAKER) 213 mg/dL 70-110 TESTED AT [facility] [address] [facility] (test ezkn=1708) [facility] [address] BASIC METABOLIC [id number] 15:09:00 Test Item Value Reference Range Comments SODIUM (BEAKER) (test 140 meq/L 136-145 qete=254) POTASSIUM (BEAKER) (test 3.8 meq/L 3.5-5.1 gzsv=687) CHLORIDE (BEAKER) (test 106 meq/L 98-107 buwk=953) CO2 (BEAKER) (test 24 meq/L 22-29 feoo=703) BLOOD UREA NITROGEN 35 mg/dL 7-21 (BEAKER) (test iwfn=494) CREATININE (BEAKER) (test 1.64 mg/dL 0.57-1.25 wqyl=171) GLUCOSE RANDOM (BEAKER) 181 mg/dL 70-105 (test ehpn=165) CALCIUM (BEAKER) (test 8.2 mg/dL 8.4-10.2 akpe=690) EGFR (BEAKER) (test 31 mL/min/1.73 sq m ESTIMATED GFR IS NOT zpae=5133) ACCURATE CREATININE CLEARANCE IN PREDICTING GLOMERULAR FILTRATION RATE. ESTIMATED GFR IS NOT APPLICABLE FOR DIALYSIS PATIENTS. PROTHROMBIN [id number] 14:53:00 Test Item Value Reference Range Comments PROTIME (BEAKER) (test xnyo=598) 15.6 seconds 11.7-14.7 INR (BEAKER) (test pfxl=412) 1.3 <=5.9 RECOMMENDED COUMADIN/WARFARIN INR THERAPY RANGESSTANDARD DOSE: 2.0 - 3.0 Includes: PROPHYLAXIS forvenous thrombosis, systemic embolization; TREATMENT for venous thrombosis and/or pulmonary embolus.HIGH RISK: Target INR is 2.5-3.5 for patients with mechanical heart valves.HEMOGLOBIN AND [id number] 14 :50:00 Test Item Value Reference Range Comments HEMOGLOBIN (BEAKER) (test dasj=269) 10.4 GM/DL 12.0-15.0 HEMATOCRIT (BEAKER) (test ueez=991) 32.6 % 36.0-45.0 CBC W/PLT COUNT & AUTO [id number] 12:10:00 Test Item Value Reference Range Comments WHITE BLOOD CELL COUNT (BEAKER) (test oqxl=895) 11.7 K/ L 4.0-10.0 RED BLOOD CELL COUNT (BEAKER) (test bdwv=022) 3.31 M/ L 4.00-5.00 HEMOGLOBIN (BEAKER) (test nady=542) 9.9 GM/DL 12.0-15.0 HEMATOCRIT (BEAKER) (test slrb=838) 31.3 % 36.0-45.0 MEAN CORPUSCULAR VOLUME (BEAKER) (test ajuo=827) 94.5 fL 82.0-99.0 MEAN CORPUSCULAR HEMOGLOBIN (BEAKER) (test 30.0 pg 27.0-33.0 glul=908) MEAN CORPUSCULAR HEMOGLOBIN CONC (BEAKER) (test 31.7 GM/DL 32.0-36.0 tgqe=964) RED CELL DISTRIBUTION WIDTH (BEAKER) (test 14.6 % 10.3-14.2 pvjf=625) PLATELET COUNT (BEAKER) (test oipp=676) 393 K/CU MM 150-430 MEAN PLATELET VOLUME (BEAKER) (test azvs=586) 7.4 fL 6.5-10.5 NUCLEATED RED BLOOD CELLS (BEAKER) (test 0 /100 WBC 0-0 emwd=878) NEUTROPHILS RELATIVE PERCENT (BEAKER) (test 76 % veax=360) LYMPHOCYTES RELATIVE PERCENT (BEAKER) (test 11 % fitw=247) MONOCYTES RELATIVE PERCENT (BEAKER) (test 12 % wdcc=027) EOSINOPHILS RELATIVE PERCENT (BEAKER) (test 2 % ailb=873) BASOPHILS RELATIVE PERCENT (BEAKER) (test 0 % xnkm=130) NEUTROPHILS ABSOLUTE COUNT (BEAKER) (test 8.83 K/ L 1.80-8.00 fsqr=213) LYMPHOCYTES ABSOLUTE COUNT (BEAKER) (test 1.23 K/ L 1.48-4.50 ocim=456) MONOCYTES ABSOLUTE COUNT (BEAKER) (test 1.42 K/ L 0.00-1.30 ercp=011) EOSINOPHILS ABSOLUTE COUNT (BEAKER) (test 0.19 K/ L 0.00-0.50 wxwz=449) BASOPHILS ABSOLUTE COUNT (BEAKER) (test 0.00 K/ L 0.00-0.20 apfz=279) [id number] 11:59:00 Test Item Value Reference Range Comments SODIUM (BEAKER) (test cpuu=594) 141 meq/L 136-145 POTASSIUM (BEAKER) (test lygj=547) 3.7 meq/L 3.5-5.1 CHLORIDE (BEAKER) (test lofx=527) 107 meq/L 98-107 CO2 (BEAKER) (test mvql=171) 24 meq/L 22-29 BUN AND [id number] 11:53:00 Test Item Value Reference Range Comments BLOOD UREA NITROGEN 38 mg/dL 7-21 (BEAKER) (test yscd=450) CREATININE (BEAKER) (test 1.61 mg/dL 0.57-1.25 kcnb=139) EGFR (BEAKER) (test 31 mL/min/1.73 sq m ESTIMATED GFR IS NOT vrmm=7410) ACCURATE CREATININE CLEARANCE IN PREDICTING GLOMERULAR FILTRATION RATE. ESTIMATED GFR IS NOT APPLICABLE FOR DIALYSIS PATIENTS. POCT-GLUCOSE [id number] 10:51:00 Test Item Value Reference Range Comments POC-GLUCOSE METER ([employer]) 52 mg/dL 70-110 Notified TASHA GRECO/TESTED AT [facility] (test wwam=4231) [address] [facility] [id number]
[2018-09-18] MEDS ORDERED: LIDOCAINE VISCOUS 2% SOLN 15 ML UDC ONE (18:24)
--- NOTE | 2018-09-18 19:15 | EDPHYS ---
Physician Documentation [facility] Name: Mary Archuleta Age: 77 yrs Sex: Female : 1940 Arrival Date: 09/18/2018 Time: 17:42 Bed 23 Private MD: Out, [facility] ED Physician Chucho Moralez HPI: 09/18 18:28 This 77 yrs old Female presents to ER via Ambulatory with complaints of Wound jr8 Infection. 18:28 The patient presents with cellulitis of the back. Onset: The symptoms/episode jr8 began/occurred at an unknown time. Possible cause(s): sutures. Associated signs and symptoms: The patient has no apparent associated signs or symptoms. Modifying factors: the symptoms are alleviated by nothing, the symptoms are aggravated by movement. Severity of symptoms: At their worst the symptoms were mild, in the emergency department the symptoms are unchanged. The patient has not experienced similar symptoms in the past. The patient has not recently seen a physician. Patient has permanent bilateral nephrostomy tubes. Her home health nurse stated that right one is looking infected on the skin . Historical: - Allergies: 17:58 Lisinopril; la1 - PMHx: 17:58 BREAST CA; cervical cancer; Diabetes - NIDDM; Hyperlipidemia; Hypertension; la1 Hypothyroidism; - Immunization history:: Adult Immunizations up to date. - Social history:: Smoking status: Patient/guardian denies using tobacco. - Ebola Screening: : No symptoms or risks identified at this time. ROS: 18:36 Eyes: Negative for injury, pain, redness, and discharge, ENT: Negative for injury, jr8 pain, and discharge, Neck: Negative for injury, pain, and swelling, Cardiovascular: Negative for chest pain, palpitations, and edema, Respiratory: Negative for shortness of breath, cough, wheezing, and pleuritic chest pain, Abdomen/GI: Negative for abdominal pain, nausea, vomiting, diarrhea, and constipation, Back: Negative for injury and pain, MS/Extremity: Negative for injury and deformity, Neuro: Negative for headache, weakness, numbness, tingling, and seizure. 18:36 Skin: Positive for erythema, of the back. Exam: 18:36 Cardiovascular: Regular rate and rhythm with a normal S1 and S2. No gallops, murmurs, jr8 or rubs. Normal PMI, no JVD. No pulse deficits. Respiratory: Lungs have equal breath sounds bilaterally, clear to auscultation and percussion. No rales, rhonchi or wheezes noted. No increased work of breathing, no retractions or nasal flaring. Abdomen/GI: Soft, non-tender, with normal bowel sounds. No distension or tympany. No guarding or rebound. No evidence of tenderness throughout. Back: No spinal tenderness. No costovertebral tenderness. Full range of motion. MS/ Extremity: Pulses equal, no cyanosis. Neurovascular intact. Full, normal range of motion. Neuro: Awake and alert, GCS 15, oriented to person, place, time, and situation. Cranial nerves II-XII grossly intact. Motor strength 5/5 in all extremities. Sensory grossly intact. Cerebellar exam normal. Normal gait. 18:36 Skin: Patient has right sided nephrostomy present. The skin where the sutures are is eroding and ulcerative. Erythema surrounds it . Vital Signs: 17:58 BP 133 / 73; Pulse 66; Resp 16; Temp 98.2; Pulse Ox 98% on R/A; Weight 55.79 kg; Height la1 5 ft. 2 in. (157.48 cm); 17:58 Body Mass Index 22.50 (55.79 kg, 157.48 cm) la1 MDM: 18:03 Patient medically screened. [facility] 18:36 Data reviewed: vital signs, nurses notes, and as a result, I will discharge patient. [facility] Data interpreted: Pulse oximetry: on room air is 98 %. Interpretation: normal. Counseling: I had a detailed discussion with the patient and/or guardian regarding: the historical points, exam findings, and any diagnostic results supporting the discharge/admit diagnosis, the need for outpatient follow up, a family practitioner, to return to the emergency department if symptoms worsen or persist or if there are any questions or concerns that arise at home. Administered Medications: No medications were administered Disposition: 09/19 10:27 Co-signature as Attending Physician, Chucho Moralez MD. Disposition: 09/18/18 18:38 Discharged to Home. Impression: Local infection of the skin and subcutaneous tissue, unspecified. - Condition is Stable. - Discharge Instructions: Cellulitis, Adult. - Prescriptions for Bactrim DS 800- 160 mg Oral Tablet - take 1 tablet by ORAL route every 12 hours for 10 days; 20 tablet. - Medication Reconciliation Form, Thank You Letter, Antibiotic Education, Prescription Opioid Use form. - Follow up: Private Physician; When: 1 - 2 days; Reason: Recheck today's complaints, Continuance of care, Re-evaluation by your physician. - Problem is new. - Symptoms have improved. Signatures: William Hernandez PA PA jr8 Quoc Xavier RN RN la1 Chucho Moralez MD MD gs Kati Castañeda RN RN kr2 Corrections: (The following items were deleted from the chart) 09/18 18:49 18:38 09/18/2018 18:38 Discharged to Home. Impression: Local infection of the skin and kr2 subcutaneous tissue, unspecified. Condition is Stable. Forms are Medication Reconciliation Form, Thank You Letter, Antibiotic Education, Prescription Opioid Use. Follow up: Private Physician; When: 1 - 2 days; Reason: Recheck today's complaints, Continuance of care, Re-evaluation by your physician. Problem is new. Symptoms have improved. jr8
--- NOTE | 2018-09-18 19:15 | ER ---
Nurse's Notes [facility] Name: Mary Archuleta Age: 77 yrs Sex: Female : 1940 Arrival Date: 09/18/2018 Time: 17:42 Bed 23 Private MD: Out, [facility] Diagnosis: Local infection of the skin and subcutaneous tissue, unspecified Presentation: 09/18 17:57 Presenting complaint: Patient states: I have permanent nephrostomy tubes and my HH la1 nurse said right site looks infected. Transition of care: patient was not received from another setting of care. Onset of symptoms was September 18, 2018. Risk Assessment: Do you want to hurt yourself or someone else? Patient reports no desire to harm self or others. Initial Sepsis Screen: Does the patient meet any 2 criteria? No. Patient's initial sepsis screen is negative. Does the patient have a suspected source of infection? No. Patient's initial sepsis screen is negative. Care prior to arrival: None. 17:57 Method Of Arrival: Ambulatory la1 17:57 Acuity: SILVERIO 3 la1 Historical: - Allergies: 17:58 Lisinopril; la1 - PMHx: 17:58 BREAST CA; cervical cancer; Diabetes - NIDDM; Hyperlipidemia; Hypertension; la1 Hypothyroidism; - Immunization history:: Adult Immunizations up to date. - Social history:: Smoking status: Patient/guardian denies using tobacco. - Ebola Screening: : No symptoms or risks identified at this time. Screenin:05 Abuse screen: Denies threats or abuse. Denies injuries from another. Nutritional kr2 screening: No deficits noted. Tuberculosis screening: No symptoms or risk factors identified. Fall Risk None identified. Assessment: 18:05 General: Appears in no apparent distress. comfortable, well groomed, well developed, kr2 well nourished, Behavior is calm, cooperative. Pain: Complains of pain in right lower back Pain does not radiate. Pain currently is 1 out of 10 on a pain scale. at worst was 8 out of 10 on a pain scale. Quality of pain is described as tender, Alleviated by rest, Aggravated by touching skin near nephrostomy tube. Neuro: Level of Consciousness is awake, alert, obeys commands, Oriented to person, place, time, situation, Appropriate for age. Cardiovascular: Capillary refill < 3 seconds in bilateral fingers Patient's skin is warm and dry. Respiratory: Airway is patent Respiratory effort is even, unlabored, Respiratory pattern is regular, symmetrical. GI: Abdomen is flat, non-distended. : Patient has nephrostomy tubes. EENT: Oral mucosa is moist. Derm: Skin is fragile, Skin is pink, warm \T\ dry. Insertion site of nephrostomy tube reddened, small open area with scant bloody drainage. Musculoskeletal: Circulation, motion, and sensation intact. Vital Signs: 17:58 BP 133 / 73; Pulse 66; Resp 16; Temp 98.2; Pulse Ox 98% on R/A; Weight 55.79 kg; Height la1 5 ft. 2 in. (157.48 cm); 17:58 Body Mass Index 22.50 (55.79 kg, 157.48 cm) la1 ED Course: 17:42 Patient arrived in ED. sb2 17:42 Out, [facility] is Private Physician. sb2 17:57 Triage completed. la1 17:58 Arm band placed on right wrist. la1 18:03 William Hernandez PA is PHCP. jr8 18:03 Chucho Moralez MD is Attending Physician. jr8 18:05 Patient has correct armband on for positive identification. Bed in low position. Call kr2 light in reach. Side rails up X 1. Pulse ox on. NIBP on. Door closed. Warm blanket given. Head of bed elevated. 18:46 No provider procedures requiring assistance completed. Patient did not have IV access kr2 during this emergency room visit. Administered Medications: No medications were administered Outcome: 18:38 Discharge ordered by . jr8 18:47 Discharged to home ambulatory, with friend. kr2 18:47 Condition: good 18:47 Discharge instructions given to patient, Instructed on discharge instructions, follow up and referral plans. medication usage, Demonstrated understanding of instructions, follow-up care, medications, Prescriptions given X 1. 18:49 Patient left the ED. kr2 Signatures: William Hernandez PA PA jr8 Quoc Xavier RN RN la1 Kati Castañeda RN RN kr2 Sivan Cuevas sb2
[2018-09-18 19:58] VITALS: BP 133/73; TEMP 98.2; O2SAT 98
== END 2018-09-18 18:49 | disposition home or self-care (01) ==
LOC: ER 17:38
DX: L08.9 Local infection of the skin and subcutaneous tissue, unspecified (principal); Z93.6 Other artificial openings of urinary tract status
CPT/HCPCS: 99283

== ENCOUNTER 2019-08-13 15:21 | Emergency (ER) | payer OTHER, BC ==
--- NOTE | 2019-08-13 16:11 | EDPHYS ---
Physician Documentation [facility] Name: Mary Archuleta Age: 78 yrs Sex: Female : 1940 Arrival Date: 08/13/2019 Time: 15:30 Bed 28 Private MD: ED Physician Fran Ruvalcaba HPI: 08/13 16:00 This 78 yrs old Female presents to ER via EMS with complaints of Flank Pain. snw 16:00 The patient complains of pain in the left mid back, . The pain does not radiate. Onset: snw The symptoms/episode began/occurred yesterday. Associated signs and symptoms: The patient has no apparent associated signs or symptoms. Severity of pain: At its worst the pain was mild. The patient has experienced similar episodes in the past. The patient has been recently seen by a physician: yesterday. Historical: - Allergies: 15:37 Lisinopril; aj1 - Home Meds: 15:37 Eliquis oral oral [Active]; fluoxetine 10 mg Oral cap 1 caps once daily [Active]; aj1 metoprolol succinate Oral [Active]; omeprazole 40 mg Oral cpDR 1 cap once daily [Active]; Potassium Chloride Oral [Active]; pravastatin 20 mg Oral tab 1 tab once daily [Active]; torsemide oral oral [Active]; - PMHx: 15:37 BREAST CA; cervical cancer; Diabetes - NIDDM; Hyperlipidemia; Hypertension; aj1 Hypothyroidism; Atrial Fib; Depression; lymphedema; peptic ulcers; - Immunization history:: Flu vaccine is not up to date. - Social history:: Smoking status: Patient/guardian denies using tobacco. - Ebola Screening: : Patient denies travel to an Ebola-affected area in the 21 days before illness onset. ROS: 15:59 Constitutional: Negative for fever, chills, and weight loss, Eyes: Negative for injury, snw pain, redness, and discharge, ENT: Negative for injury, pain, and discharge, Neck: Negative for injury, pain, and swelling, Cardiovascular: Negative for chest pain, palpitations, and edema, Respiratory: Negative for shortness of breath, cough, wheezing, and pleuritic chest pain, Abdomen/GI: Negative for abdominal pain, nausea, vomiting, diarrhea, and constipation, Back: Negative for injury and pain, MS/Extremity: Negative for injury and deformity, Skin: Negative for injury, rash, and discoloration, Neuro: Negative for headache, weakness, numbness, tingling, and seizure. 15:59 : Positive for bilateral nephrostomy tubes, need left side tubing flushed. Exam: 15:57 Constitutional: This is a well developed, well nourished patient who is awake, alert, snw and in no acute distress. Head/Face: Normocephalic, atraumatic. Eyes: Pupils equal round and reactive to light, extra-ocular motions intact. Lids and lashes normal. Conjunctiva and sclera are non-icteric and not injected. Cornea within normal limits. Periorbital areas with no swelling, redness, or edema. ENT: Nares patent. No nasal discharge, no septal abnormalities noted. Tympanic membranes are normal and external auditory canals are clear. Oropharynx with no redness, swelling, or masses, exudates, or evidence of obstruction, uvula midline. Mucous membranes moist. Neck: Trachea midline, no thyromegaly or masses palpated, and no cervical lymphadenopathy. Supple, full range of motion without nuchal rigidity, or vertebral point tenderness. No Meningismus. Chest/axilla: Normal chest wall appearance and motion. Nontender with no deformity. No lesions are appreciated. 15:57 Respiratory: Lungs have equal breath sounds bilaterally, clear to auscultation and percussion. No rales, rhonchi or wheezes noted. No increased work of breathing, no retractions or nasal flaring. Abdomen/GI: Soft, non-tender, with normal bowel sounds. No distension or tympany. No guarding or rebound. No evidence of tenderness throughout. Skin: Warm, dry with normal turgor. Normal color with no rashes, no lesions, and no evidence of cellulitis. MS/ Extremity: Pulses equal, no cyanosis. Neurovascular intact. Full, normal range of motion. Neuro: Awake and alert, GCS 15, oriented to person, place, time, and situation. Cranial nerves II-XII grossly intact. Motor strength 5/5 in all extremities. Sensory grossly intact. Cerebellar exam normal. Normal gait. Psych: Awake, alert, with orientation to person, place and time. Behavior, mood, and affect are within normal limits. 15:57 Cardiovascular: Rate: normal, Rhythm: irregular, Pulses: no pulse deficits are appreciated, Edema: 1+ edema to level of left foot and right foot. 15:57 Back: pain, that is very mild, bilateral nephrostomy tubes, left with dark bloody dc, pt requests flush of tubing or change. Nephrostomy tubes x 2 yrs, changed q 9 weeks, changed yesterday. Vital Signs: 15:37 BP 134 / 66; Pulse 71; Resp 18; Temp 98.1; Pulse Ox 100% on R/A; Weight 56.7 kg (R); aj1 Height 5 ft. 2 in. (157.48 cm) (R); Pain 9/10; 15:37 Body Mass Index 22.86 (56.70 kg, 157.48 cm) aj1 MDM: 15:43 Patient medically screened. snw 16:11 Data reviewed: vital signs, nurses notes. Data interpreted: Pulse oximetry: on room air snw is 100 %. Interpretation: normal. Counseling: I had a detailed discussion with the patient and/or guardian regarding: the historical points, exam findings, and any diagnostic results supporting the discharge/admit diagnosis, the need for outpatient follow up, to return to the emergency department if symptoms worsen or persist or if there are any questions or concerns that arise at home. Special discussion: Based on the history and exam findings, there is no indication for further emergent testing or inpatient evaluation. I discussed with the patient/guardian the need to see the primary care provider for further evaluation of the symptoms. 08/13 16:12 [place] [facility] [place] Please flush neph tube per pt instructions; Complete Time: snw 17:07 Administered Medications: No medications were administered Disposition: 08/14 07:15 Co-signature as Attending Physician, Fran Ruvalcaba MD I agree with the assessment and kdr plan of care. Disposition: 08/13/19 16:11 Discharged to Home. Impression: Encounter for fitting and adjustment of urinary device - nephrostomy tube. - Condition is Stable. - Discharge Instructions: Percutaneous Nephrolithotomy, Care After, Percutaneous Nephrostomy Home Guide. - Medication Reconciliation Form, Thank You Letter, Antibiotic Education, Prescription Opioid Use form. - Follow up: Private Physician; When: 2 - 3 days; Reason: Recheck today's complaints, Continuance of care, Re-evaluation by your physician. Follow up: Emergency Department; When: As needed; Reason: Worsening of condition. Signatures: Dispatcher [employer] Latonia Ruiz RN RN aj1 Fran Ruvalcaba MD MD [facility] Lashaun Morrison, FILEMON-C PATIENT SVCS MGR-Cs[facility] Juju Shelton RN RN iw Corrections: (The following items were deleted from the chart) 08/13 15:44 15:31 [place] ordered. suman will 16:03 15:31 Urine Dipstick-Ancillary ordered. suman dawson1 17:59 16:11 08/13/2019 16:11 Discharged to Home. Impression: Encounter for fitting and iw adjustment of urinary device - nephrostomy tube. Condition is Stable. Discharge Instructions: Percutaneous Nephrolithotomy, Care After, Percutaneous Nephrostomy Home Guide. Forms are Medication Reconciliation Form, Thank You Letter, Antibiotic Education, Prescription Opioid Use. Follow up: Private Physician; When: 2 - 3 days; Reason: Recheck today's complaints, Continuance of care, Re-evaluation by your physician. Follow up: Emergency Department; When: As needed; Reason: Worsening of condition. suman
--- NOTE | 2019-08-13 16:11 | ER ---
Nurse's Notes [facility] Name: Mary Archuleta Age: 78 yrs Sex: Female : 1940 Arrival Date: 08/13/2019 Time: 15:30 Bed 28 Private MD: Diagnosis: Encounter for fitting and adjustment of urinary device-nephrostomy tube Presentation: 08/13 15:30 Presenting complaint: Patient states: She was at [facility] yesterday to have her aj nephrostomy tubes taken care of, and then didn't put on the extension tubing she usually uses so she can flush her left nephrostomy tube. Patient reports having left flank pain that started today that she reports feels similar to when her nephrostomy tube needs to be flushed, but she is unable to reach to flush the left nephrostomy tube without the extension cord. Patient states "I just need to have my tube flushed, that's it". Transition of care: patient was not received from another setting of care. Onset of symptoms was August 13, 2019. Risk Assessment: Do you want to hurt yourself or someone else? Patient reports no desire to harm self or others. Initial Sepsis Screen: Does the patient meet any 2 criteria? No. Patient's initial sepsis screen is negative. Does the patient have a suspected source of infection? No. Patient's initial sepsis screen is negative. Care prior to arrival: None. 15:30 Method Of Arrival: EMS: [facility] aj 15:30 Acuity: SILVERIO 3 aj1 Triage Assessment: 15:37 General: Appears in no apparent distress. comfortable, Behavior is calm, cooperative, aj1 appropriate for age. Pain: Pain currently is 9 out of 10 on a pain scale. Historical: - Allergies: 15:37 Lisinopril; aj1 - Home Meds: 15:37 Eliquis oral oral [Active]; fluoxetine 10 mg Oral cap 1 caps once daily [Active]; aj1 metoprolol succinate Oral [Active]; omeprazole 40 mg Oral cpDR 1 cap once daily [Active]; Potassium Chloride Oral [Active]; pravastatin 20 mg Oral tab 1 tab once daily [Active]; torsemide oral oral [Active]; - PMHx: 15:37 BREAST CA; cervical cancer; Diabetes - NIDDM; Hyperlipidemia; Hypertension; aj1 Hypothyroidism; Atrial Fib; Depression; lymphedema; peptic ulcers; - Immunization history:: Flu vaccine is not up to date. - Social history:: Smoking status: Patient/guardian denies using tobacco. - Ebola Screening: : Patient denies travel to an Ebola-affected area in the 21 days before illness onset. Screenin:39 Abuse screen: Denies threats or abuse. Denies injuries from another. Nutritional aj1 screening: No deficits noted. Tuberculosis screening: No symptoms or risk factors identified. 17:59 Fall Risk None identified. iw Assessment: 15:39 General: Appears in no apparent distress. comfortable, Behavior is calm, cooperative, aj1 appropriate for age. Pain: Complains of pain in posterior aspect of left lateral abdomen Pain currently is 9 out of 10 on a pain scale. Neuro: Level of Consciousness is awake, alert, obeys commands, Oriented to person, place, time, situation. Cardiovascular: Patient's skin is warm and dry. Respiratory: Airway is patent Respiratory effort is even, unlabored, Respiratory pattern is regular, symmetrical. GI: No signs and/or symptoms were reported involving the gastrointestinal system. : patient has bilateral nephrostomy tubes Reports flank pain. EENT: No signs and/or symptoms were reported regarding the EENT system. Derm: No signs and/or symptoms reported regarding the dermatologic system. Skin is pink, warm \\T\\ dry. normal. Musculoskeletal: No signs and/or symptoms reported regarding the musculoskeletal system. Circulation, motion, and sensation intact. 16:40 Reassessment: Attempted to flush nephrostomy tube, was able to get saline in, and aj1 remove amount that was added, but was unable to get urine to start flowing freely from nephrostomy tube. Notified Evelyn Morrison NP. 17:00 Reassessment: Juju Elizabeth RN, charge nurse, at bedside to attempt to flush patient's aj1 nephrostomy tube. Unable to get urine to flow freely to nephrostomy tube. Notified Evelyn Morrison NP. Order received to have patient follow up with underwriting analyst. 17:45 Reassessment: left nephrostomy tube irrigated with 10 mL NS X 6 times, allan blood iw noted in tube, unable to unclog tube, Lashaun EXPORT FREIGHT MANAGER notified, friend of pt has made call to Dr. Curtis and [facility], pt [facility] if unable to get a hold of Dr. Curtis. Pt agrees with POC. Pt sent with physician's notes and d/c papers. Vital Signs: 15:37 BP 134 / 66; Pulse 71; Resp 18; Temp 98.1; Pulse Ox 100% on R/A; Weight 56.7 kg (R); aj1 Height 5 ft. 2 in. (157.48 cm) (R); Pain 9/10; 15:37 Body Mass Index 22.86 (56.70 kg, 157.48 cm) aj1 ED Course: 15:30 Patient arrived in ED. aj1 15:30 Lashaun Morrison FNP-C is PHCP. snw 15:30 Fran Ruvalcaba MD is Attending Physician. snw 15:33 Triage completed. aj1 15:37 Arm band placed on. aj1 15:39 Patient has correct armband on for positive identification. Bed in low position. aj1 15:39 No provider procedures requiring assistance completed. aj1 15:41 Latonia Martin, RN is Primary Nurse. aj1 17:59 Patient did not have IV access during this emergency room visit. iw Administered Medications: No medications were administered Outcome: 16:11 Discharge ordered by . snw 17:59 Discharged to home via wheelchair, with friend. iw 17:59 Condition: good 17:59 Discharge instructions given to patient, family, Instructed on discharge instructions, follow up and referral plans. 17:59 Patient left the ED. iw Signatures: Latonia Martin, RN RN aj1 Lashaun Morrison FNP-C FNP-CsnJuju Small RN RN iw
[2019-08-13 19:19] VITALS: BP 134/66; TEMP 98.1; O2SAT 100
== END 2019-08-13 17:59 | disposition home or self-care (01) ==
LOC: ER 15:21
DX: Z46.6 Encounter for fitting and adjustment of urinary device (principal); I10 Essential (primary) hypertension; E11.9 Type 2 diabetes mellitus without complications; E78.5 Hyperlipidemia, unspecified; I48.91 Unspecified atrial fibrillation; E03.9 Hypothyroidism, unspecified; Z79.01 Long term (current) use of anticoagulants; Z88.8 Allergy status to other drugs, medicaments and biological substances; Z85.3 Personal history of malignant neoplasm of breast; Z85.41 Personal history of malignant neoplasm of cervix uteri
CPT/HCPCS: 99283

== ENCOUNTER 2019-08-18 14:49 | Emergency (ER) | payer OTHER, BC ==
[2019-08-18 15:51] LABS: Protime INR 2.02
[2019-08-18 16:04] LABS: ALT/SGPT 11 U/L (12-78); AST/SGOT 12 U/L (15-37); Albumin 2.3 g/dL (3.4-5.0); Alkaline Phosphatase 79 U/L (45-117); BUN Blood Urea Nitrogen 33 mg/dL (7-18); Bicarbonate 24 mmol/L (21-32); Bilirubin Direct 0.1 mg/dL (0-0.2); Bilirubin Total 0.3 mg/dL (0.2-1.0); Glucose Level 110 mg/dL (74-106); Magnesium 1.8 mg/dL (1.8-2.4); NT PRO-BNP 9543 pg/mL (<450); Potassium 4.2 mmol/L (3.5-5.1); Protein, Total 6.8 g/dL (6.4-8.2); Sodium Level 137 mmol/L (136-145); Troponin (Emerg Dept Use Only) < 0.02 ng/mL (0.0-0.045)
[2019-08-18 16:06] LABS: Absolute Lymphocytes (CBC) 0.8 K/uL (0.7-4.9); Basophils % 0.4 % (0-1.3); Hematocrit 21.8 % (36.0-45.0); Lymphocytes % 6.1 % (15.3-44.8); MPV 7.6 fL (7.6-11.3); RBC Red Blood Cell Count 2.37 M/uL (3.86-4.86)
--- NOTE | 2019-08-18 16:17 | RAD REPORT ---
EXAM DESCRIPTION: CT - Stone Protocol - 08/18/2019 3:50 pm CLINICAL HISTORY: Abdominal pain. COMPARISON: 2018 TECHNIQUE: Computed axial tomography of the abdomen pelvis was obtained without oral or IV contrast. Lack of IV and oral contrast limits evaluation of solid organs, bowel, and vessels. Coronal reformat shanell images were obtained and reviewed. All CT scans are performed using dose optimization technique as appropriate and may include automated exposure control or mA/KV adjustment according to patient size. FINDINGS: Bilateral percutaneous nephrostomy tubes are in place without hydronephrosis. A left ureteral stent is in place. A fluid-filled bladder is not identified.. No hydronephrosis. A genitourinary calculus is not seen The liver, spleen, pancreas and adrenals appear grossly normal There is no evidence of diverticulitis. Hysterectomy. Moderate amount stool throughout the colon. Postsurgical changes involve the spine Insufficiency sacral fracture is noted. Insufficiency fracture of the left ilium is noted IMPRESSION: Negative for a genitourinary calculus
--- NOTE | 2019-08-18 17:08 | ER ---
Nurse's Notes [facility] Name: Mary Archuleta Age: 78 yrs Sex: Female : 1940 Arrival Date: 08/18/2019 Time: 14:52 Bed 2 Private MD: Diagnosis: Anemia in other chronic diseases classified elsewhere Presentation: 08/18 14:56 Presenting complaint: Patient states: "my doctor sent me here because my hemoglobin is aa5 a 7 and he want me to get a CT scan". Pt states "I had my nephrostomy tubes changed out last week at [facility] and I was bleeding but that has cleared up now". Pt reports SOB on exertion and generalized weakness. Transition of care: patient was not received from another setting of care. Onset of symptoms was 2018. Risk Assessment: Do you want to hurt yourself or someone else? Patient reports no desire to harm self or others. Initial Sepsis Screen: Does the patient meet any 2 criteria? No. Patient's initial sepsis screen is negative. Does the patient have a suspected source of infection? No. Patient's initial sepsis screen is negative. Care prior to arrival: None. 14:56 Acuity: SILVERIO 3 aa5 14:56 Method Of Arrival: Ambulatory aa5 Triage Assessment: 17:38 General: Appears in no apparent distress. comfortable, Behavior is calm, cooperative. mg2 17:38 Pain: Denies pain. mg2 Historical: - Allergies: 14:58 Lisinopril; aa5 - Home Meds: 15:04 Eliquis Oral [Active]; fluoxetine 10 mg Oral cap 1 caps once daily [Active]; metoprolol tw2 succinate Oral [Active]; omeprazole 40 mg Oral cpDR 1 cap once daily [Active]; Potassium Chloride Oral [Active]; pravastatin 20 mg Oral tab 1 tab once daily [Active]; torsemide Oral [Active]; - PMHx: 14:58 Atrial Fib; BREAST CA; cervical cancer; Depression; Diabetes - NIDDM; Hyperlipidemia; aa5 Hypertension; Hypothyroidism; lymphedema; peptic ulcers; - Immunization history:: Flu vaccine is not up to date. - Social history:: Smoking status: Patient/guardian denies using tobacco. - Ebola Screening: : No symptoms or risks identified at this time. Screenin:03 Abuse screen: Denies threats or abuse. Nutritional screening: No deficits noted. tw2 Tuberculosis screening: No symptoms or risk factors identified. Fall Risk Secondary diagnosis (15 points) impaired mobility. Assessment: 16:32 Reassessment: Patient appears in no apparent distress at this time. No changes from tw2 previously documented assessment. Patient and/or family updated on plan of care and expected duration. Pain level reassessed. Patient is alert, oriented x 3, equal unlabored respirations, skin warm/dry/pink. Vital Signs: 14:58 BP 115 / 54; Pulse 86; Resp 18 S; Temp 99.0(TE); Pulse Ox 99% on R/A; Pain 0/10; aa5 16:32 BP 97 / 59; Pulse 78; Resp 17; Pulse Ox 98% on R/A; tw2 17:37 BP 115 / 70; Pulse 88; Resp 18; Temp 98; Pulse Ox 100% on R/A; Pain 0/10; mg2 ED Course: 14:52 Patient arrived in ED. mr 14:56 Arm band placed on. aa5 14:57 Triage completed. aa5 15:03 Pavithra Gross, RN is Primary Nurse. tw2 15:04 Bed in low position. Call light in reach. conformal pad former on. Pulse ox on. NIBP on. tw2 Warm blanket given. 15:06 Chucho Moralez MD is Attending Physician. gs 15:09 EKG done, by claim technician. reviewed by Chucho Moralez MD. sm3 15:21 Initial lab(s) drawn, by al, sent to lab. T\\T\\S collected, blood band applied to patient. dh3 Inserted saline lock: 20 gauge in left antecubital area, using aseptic technique. Blood collected. 15:50 CT Stone Protocol In Process Unspecified. EDMS 16:19 X-ray completed. az 16:20 XRAY Chest (1 view) In Process Unspecified. EDMS 17:37 No provider procedures requiring assistance completed. IV discontinued, intact, mg2 bleeding controlled, No redness/swelling at site. Pressure dressing applied. Administered Medications: No medications were administered Outcome: 17:08 Discharge ordered by . gs 17:37 Discharged to home via wheelchair. mg2 17:37 Condition: stable 17:37 Discharge instructions given to family, Instructed on discharge instructions, follow up and referral plans. Demonstrated understanding of instructions, follow-up care. 17:38 Patient left the ED. mg2 Signatures: Dispatcher [employer] EDAR Lee Ann Moore mr Sandor, Julissa, RN RN aa5 Pavithra Gross RN RN tw2 Fani Childs 3 Chucho Moralez MD MD Ubaldo Escobedo RN RN mg2 Aster Armijo 3 Lisa Eli
--- NOTE | 2019-08-18 17:09 | EDPHYS ---
Physician Documentation [facility] Name: Mary Archuleta Age: 78 yrs Sex: Female : 1940 Arrival Date: 08/18/2019 Time: 14:52 Bed 2 Private MD: ED Physician Chucho Moralez HPI: 08/18 18:42 This 78 yrs old Female presents to ER via Ambulatory with complaints of gs Abnormal Lab Results. 18:42 concern for anemia, and issue with nephrostomy tube, sent mainly over for ct scan pt gs states wants to make sure not bleeding internally. Historical: - Allergies: 14:58 Lisinopril; aa5 - Home Meds: 15:04 Eliquis Oral [Active]; fluoxetine 10 mg Oral cap 1 caps once daily [Active]; metoprolol tw2 succinate Oral [Active]; omeprazole 40 mg Oral cpDR 1 cap once daily [Active]; Potassium Chloride Oral [Active]; pravastatin 20 mg Oral tab 1 tab once daily [Active]; torsemide Oral [Active]; - PMHx: 14:58 Atrial Fib; BREAST CA; cervical cancer; Depression; Diabetes - NIDDM; Hyperlipidemia; aa5 Hypertension; Hypothyroidism; lymphedema; peptic ulcers; - Immunization history:: Flu vaccine is not up to date. - Social history:: Smoking status: Patient/guardian denies using tobacco. - Ebola Screening: : No symptoms or risks identified at this time. ROS: 18:42 All other systems are negative. gs Exam: 18:42 Head/Face: Normocephalic, atraumatic. Eyes: Pupils equal round and reactive to light, gs extra-ocular motions intact. Lids and lashes normal. Conjunctiva and sclera are non-icteric and not injected. Cornea within normal limits. Periorbital areas with no swelling, redness, or edema. ENT: Nares patent. No nasal discharge, no septal abnormalities noted. Tympanic membranes are normal and external auditory canals are clear. Oropharynx with no redness, swelling, or masses, exudates, or evidence of obstruction, uvula midline. Mucous membranes moist. Neck: Trachea midline, no thyromegaly or masses palpated, and no cervical lymphadenopathy. Supple, full range of motion without nuchal rigidity, or vertebral point tenderness. No Meningismus. Chest/axilla: Normal chest wall appearance and motion. Nontender with no deformity. No lesions are appreciated. Cardiovascular: Regular rate and rhythm with a normal S1 and S2. No gallops, murmurs, or rubs. Normal PMI, no JVD. No pulse deficits. Respiratory: Lungs have equal breath sounds bilaterally, clear to auscultation and percussion. No rales, rhonchi or wheezes noted. No increased work of breathing, no retractions or nasal flaring. Abdomen/GI: Soft, non-tender, with normal bowel sounds. No distension or tympany. No guarding or rebound. No evidence of tenderness throughout. Back: No spinal tenderness. No costovertebral tenderness. Full range of motion. Skin: Warm, dry with normal turgor. Normal color with no rashes, no lesions, and no evidence of cellulitis. Neuro: Awake and alert, GCS 15, oriented to person, place, time, and situation. Cranial nerves II-XII grossly intact. Motor strength 5/5 in all extremities. Sensory grossly intact. Cerebellar exam normal. Normal gait. 18:42 Constitutional: The patient appears alert, awake. 18:42 Back: nephrostomy tubes in place. 18:42 Musculoskeletal/extremity: Perfusion: the patient is normally perfused throughout, Edema, 1+ to the left ankle and right ankle is noted. Vital Signs: 14:58 BP 115 / 54; Pulse 86; Resp 18 S; Temp 99.0(TE); Pulse Ox 99% on R/A; Pain 0/10; aa5 16:32 BP 97 / 59; Pulse 78; Resp 17; Pulse Ox 98% on R/A; tw2 17:37 BP 115 / 70; Pulse 88; Resp 18; Temp 98; Pulse Ox 100% on R/A; Pain 0/10; mg2 MDM: 15:27 Patient medically screened. gs 18:42 Data reviewed: vital signs, nurses notes, lab test result(s), radiologic studies. gs Response to treatment: the patient's symptoms have markedly improved after treatment, the patient's condition has returned to base line, and as a result, I will discharge patient. Other consultation: discussed blood transfusion guidelines pt ok with plan to take iron as was rx by her doctor monitor hemooglobin. 08/18 15:28 Order name: Basic Metabolic Panel; Complete Time: 16:24 gs 08/18 15:28 Order name: CBC with Diff; Complete Time: 16:24 08/18 15:28 Order name: LFT's; Complete Time: 16:24 08/18 15:28 Order name: Magnesium; Complete Time: 16:24 08/18 15:28 Order name: NT PRO-BNP; Complete Time: 16:24 08/18 15:28 Order name: PT-INR; Complete Time: 16:24 08/18 15:28 Order name: Troponin (emerg Dept Use Only); Complete Time: 16:24 08/18 15:28 Order name: XRAY Chest (1 view); Complete Time: 17:38 08/18 15:28 Order name: EKG; Complete Time: 15:29 08/18 15:28 Order name: Cardiac monitoring; Complete Time: 15:30 08/18 15:28 Order name: EKG - Nurse/Tech; Complete Time: 15:30 08/18 15:28 Order name: IV Saline Lock; Complete Time: 15:30 08/18 15:28 Order name: CT Stone Protocol; Complete Time: 17:05 08/18 15:28 Order name: Type And Screen; Complete Time: 16:24 08/18 15:28 Order name: Labs collected and sent; Complete Time: 15:30 08/18 15:28 Order name: O2 Per Protocol; Complete Time: 15:30 08/18 15:28 Order name: O2 Sat Monitoring; Complete Time: 15:30 gs Administered Medications: No medications were administered Disposition: 08/18/19 17:08 Discharged to Home. Impression: Anemia in other chronic diseases classified elsewhere. - Condition is Stable. - Discharge Instructions: Anemia, Nonspecific. - Medication Reconciliation Form, Thank You Letter, Antibiotic Education, Prescription Opioid Use form. - Follow up: Private Physician; When: 2 - 3 days; Reason: Re-evaluation by your physician. Signatures: Dispatcher [employer] Julisas Schultz RN RN aa5 Pavithra Gross RN RN tw2 Chucho Moralez MD MD gs Gardose, Michele, RN RN mg2 Corrections: (The following items were deleted from the chart) 17:38 17:08 08/18/2019 17:08 Discharged to Home. Impression: Anemia in other chronic diseases mg2 classified elsewhere. Condition is Stable. Forms are Medication Reconciliation Form, Thank You Letter, Antibiotic Education, Prescription Opioid Use. Follow up: Private Physician; When: 2 - 3 days; Reason: Re-evaluation by your physician. gs
--- NOTE | 2019-08-18 17:27 | RAD REPORT ---
EXAM DESCRIPTION: Bhavik Single View08/18/2019 4:20 pm CLINICAL HISTORY: sob COMPARISON: 2018 FINDINGS: The lungs appear clear of acute infiltrate. The heart is mildly enlarged IMPRESSION: No acute abnormalities displayed
[2019-08-18 18:50] VITALS: BP 115/70; TEMP 98; O2SAT 100
--- NOTE | 2019-08-19 12:55 | EKG ---
Test Date: 2019-08-18 Test Time: 15:02:18 Cryptologic Technician: ANIA/S MEASUREMENT RESULTS: Intervals: Rate: 83 MI: QRSD: 90 QT: 372 QTc: 437 [place]: P: MI: QRS: 39 T: 72 INTERPRETIVE STATEMENTS: Atrial fibrillation Low voltage QRS RSR' or QR pattern in V1 suggests right ventricular conduction delay Cannot rule out Anterior infarct, age undetermined Abnormal ECG Compared to ECG 03/20/2017 12:19:35 Low QRS voltage now present RSR' in V1 or V2 now present Myocardial infarct finding now present Sinus rhythm no longer present Electronically Signed On 08-19-19 12:54:43 CDT by Dilan Pineda
== END 2019-08-18 17:38 | disposition home or self-care (01) ==
LOC: ER 14:49
DX: D64.9 Anemia, unspecified (principal); I10 Essential (primary) hypertension; E11.9 Type 2 diabetes mellitus without complications; E03.9 Hypothyroidism, unspecified; I48.91 Unspecified atrial fibrillation; Z79.01 Long term (current) use of anticoagulants; Z85.3 Personal history of malignant neoplasm of breast; Z85.41 Personal history of malignant neoplasm of cervix uteri
CPT/HCPCS: 36415; 71045; 74176; 76377; 80048; 80076; 83735; 83880; 84484; 85025; 85610; 86850; 86900; 86901; 93005; 99284

== ENCOUNTER 2019-12-24 15:43 | Emergency (ER) | payer OTHER, BC ==
--- OUTSIDE RECORDS SUMMARY | 2019-12-24 15:49 | XMS REPORT ---
:1940 [facility] [address] [place] [address] Care Team Providers Name Role Phone LINK, MARCO A LEE Unavailable Unavailable MOLLYCHELSEY CAMPBELL Unavailable Unavailable EDIE CLEMENT Unavailable Unavailable ZUÑIGACASIE NAVARRETE Unavailable Unavailable PILO SIMPSON Unavailable Unavailable LESLIE PRITCHARD Unavailable Unavailable LESLIE LOPEZ Unavailable Unavailable SAMWAYSLAURE Unavailable Unavailable JOSUEYANA REYES Unavailable Unavailable ARACELI, BRENDA DAYANA Unavailable Unavailable Problems This patient has no known problems. Allergies, Adverse Reactions, Alerts This patient has no known allergies or adverse reactions. Medications This patient has no known medications. Results Test Description Test Time Test Comments Text Results Atomic Results Result Comments ANG, NEPHROSTOMY 2019-10-11 Reason for FINAL REPORT PATIENT ID: TUBE CHANGE, LEFT 12:12:00 Exam:->Chronic [id number] Fluoroscopic bilateral nephrostomy guided right nephrostomy tubes for bilateral and left ureteral obstruction. nephroureterostomy catheter exchange. History: Chronic ureteral obstruction Modality: Fluoroscopy Sedation: None Database Management System Specialist: Tutu Kruse MD Insurance Job Titles: None. Approach: Via indwelling bilateral catheters Estimated blood loss: < 5 cc. Specimen: None. Fluoroscopy Time: 2.5 min.Reference Air Kerma (Ka, r): 35.7 mGy. Technique: Informed written consent was obtained. [...] gown for performing radiologist and scrub technologist. 1% lidocaine was used for local anesthesia. Contrast was injected via the indwelling left percutaneous nephroureterostomy catheter confirming intraluminal position. The existing catheter was cut. A 0.035 wire was advanced through the existing catheter into the urinary bladder. The existing catheter was removed over wire. A new 10.2 Dutch by 22 cm nephroureterostomy catheter was advanced over wire with distal pigtail formed within the urinary bladder and proximal pigtail within the left renal pelvis. Contrast injection confirmed position. No external suture was used per patient's preference. A sterile dressing was applied. 1% lidocaine was used for local anesthesia. The indwelling right nephrostomy catheter was found be excluded. A wire was advanced through the indwelling catheter and the existing catheter was removed. A new 12 Dutch nephrostomy catheter was advanced over wire with pigtail formed within the right renal pelvis. No external suture was used per patient's preference. A sterile dressing was applied. The patient tolerated the procedure without immediate complication. Impression: Successful fluoroscopic guided left percutaneous nephroureterostomy and right sided percutaneous nephrostomy catheter exchange. Signed: Tutu Kruse MDReport Verified Date/Time: 10/11/2019 12:12:41 Reading Location: [place] [address] Angio Body Reading Room 2019-10-10 10:56:00 Test Item Value Reference Range Comments PARTIAL THROMBOPLASTIN TIME (BEAKER) (test vhzh=961) 43.6 seconds 22.5-36.0 PROTHROMBIN [id number] 10:55:00 Test Item Value Reference Range Comments PROTIME (BEAKER) (test jtrn=287) 17.4 seconds 11.9-14.2 INR (BEAKER) (test poyy=498) 1.5 <=5.9 Effective 03/30/2019: PT Reference Range ChangeNew: 11.9-14.2 Previous: 11.7- 14.7RECOMMENDED COUMADIN/WARFARIN INR THERAPY RANGESSTANDARD DOSE: 2.0-3.0 Includes: PROPHYLAXIS for venous thrombosis, systemic embolization; TREATMENT for venous thrombosis and/or pulmonary embolus.HIGH RISK: Target INR is2.5-3.5 for patients wiht mechanical heart valves.CBC W/PLT COUNT & AUTO [id number] 10:48:00 Test Item Value Reference Range Comments WHITE BLOOD CELL COUNT (BEAKER) (test tzdx=861) 7.5 K/ L 3.5-10.5 RED BLOOD CELL COUNT (BEAKER) (test ldzn=711) 3.19 M/ L 3.93-5.22 HEMOGLOBIN (BEAKER) (test ttii=543) 9.4 GM/DL 11.2-15.7 HEMATOCRIT (BEAKER) (test cynu=763) 31.3 % 34.1-44.9 MEAN CORPUSCULAR VOLUME (BEAKER) (test gwxp=518) 98.1 fL 79.4-94.8 MEAN CORPUSCULAR HEMOGLOBIN (BEAKER) (test 29.5 pg 25.6-32.2 txzu=233) MEAN CORPUSCULAR HEMOGLOBIN CONC (BEAKER) (test 30.0 GM/DL 32.2-35.5 vfps=323) RED CELL DISTRIBUTION WIDTH (BEAKER) (test 16.1 % 11.7-14.4 zvgn=849) PLATELET COUNT (BEAKER) (test gjax=829) 399 K/CU MM 150-450 MEAN PLATELET VOLUME (BEAKER) (test gzsf=360) 9.0 fL 9.4-12.3 NUCLEATED RED BLOOD CELLS (BEAKER) (test 0 /100 WBC 0-0 sath=460) NEUTROPHILS RELATIVE PERCENT (BEAKER) (test 77 % jmya=161) LYMPHOCYTES RELATIVE PERCENT (BEAKER) (test 11 % atvd=510) MONOCYTES RELATIVE PERCENT (BEAKER) (test 9 % mvgs=947) EOSINOPHILS RELATIVE PERCENT (BEAKER) (test 2 % ifjr=158) BASOPHILS RELATIVE PERCENT (BEAKER) (test 0 % mscz=302) NEUTROPHILS ABSOLUTE COUNT (BEAKER) (test 5.71 K/ L 1.56-6.13 urjd=589) LYMPHOCYTES ABSOLUTE COUNT (BEAKER) (test 0.81 K/ L 1.18-3.74 hvjf=155) MONOCYTES ABSOLUTE COUNT (BEAKER) (test 0.68 K/ L 0.24-0.36 fekx=915) EOSINOPHILS ABSOLUTE COUNT (BEAKER) (test 0.18 K/ L 0.04-0.36 tjyt=265) BASOPHILS ABSOLUTE COUNT (BEAKER) (test 0.03 K/ L 0.01-0.08 unll=818) IMMATURE GRANULOCYTES-RELATIVE PERCENT (BEAKER) 1 % 0-1 (test srpd=4043) PROTHROMBIN [id number] 14:50:00 Test Item Value Reference Range Comments PROTIME (BEAKER) (test gyrt=338) 18.4 seconds 11.9-14.2 INR (BEAKER) (test xiip=913) 1.6 <=5.9 Effective 03/30/2019: PT Reference Range ChangeNew: 11.9-14.2 Previous: 11.7- 14.7RECOMMENDED COUMADIN/WARFARIN INR THERAPY RANGESSTANDARD DOSE: 2.0-3.0 Includes: PROPHYLAXIS for venous thrombosis, systemic embolization; TREATMENT for venous thrombosis and/or pulmonary embolus.HIGH RISK: Target INR is2.5-3.5 for patients wiht mechanical heart valves.URINALYSIS W/ [id number] 14 :42:00 Test Item Value Reference Range Comments COLOR (BEAKER) (test weab=989) Yellow CLARITY (BEAKER) (test lvjj=288) Hazy SPECIFIC GRAVITY UA (BEAKER) (test 1.019 1.001-1.035 ybxq=641) PH UA (BEAKER) (test rkfj=156) 8.0 5.0-8.0 PROTEIN UA (BEAKER) (test tktm=012) 100 mg/dL Negative GLUCOSE UA (BEAKER) (test wwbh=657) Negative Negative KETONES UA (BEAKER) (test kpbi=104) Negative Negative BILIRUBIN UA (BEAKER) (test qsir=482) Negative Negative BLOOD UA (BEAKER) (test qisi=295) Small Negative NITRITE UA (BEAKER) (test xpzg=873) Positive Negative LEUKOCYTE ESTERASE UA (BEAKER) (test Large Negative efcg=432) UROBILINOGEN UA (BEAKER) (test phdj=777) 0.2 mg/dL 0.2-1.0 RBC UA (BEAKER) (test ahah=607) 28 /HPF WBC UA (BEAKER) (test ktbd=150) 53 /HPF BACTERIA (BEAKER) (test oyim=343) Moderate MUCUS (BEAKER) (test omep=1006) Few TRIPLE PHOSPHATE CRYSTALS (BEAKER) (test Few ldhh=4272) YEAST (BEAKER) (test dsyl=4631) Moderate SOURCE(BEAKER) (test obnt=7795) Urine, Nephrostomy BASIC METABOLIC [id number] 14:37:00 Test Item Value Reference Range Comments SODIUM (BEAKER) (test 136 meq/L 136-145 vcyv=824) POTASSIUM (BEAKER) (test 4.4 meq/L 3.5-5.1 lebx=571) CHLORIDE (BEAKER) (test 103 meq/L 98-107 ddqi=095) CO2 (BEAKER) (test 27 meq/L 22-29 meqm=103) BLOOD UREA NITROGEN 23 mg/dL 7-21 (BEAKER) (test kiao=158) CREATININE (BEAKER) (test 0.98 mg/dL 0.57-1.25 dpty=570) GLUCOSE RANDOM (BEAKER) 90 mg/dL 70-105 (test mppm=194) CALCIUM (BEAKER) (test 8.9 mg/dL 8.4-10.2 nuse=929) EGFR (BEAKER) (test 55 mL/min/1.73 sq m ESTIMATED GFR IS NOT fupi=6484) ACCURATE CREATININE CLEARANCE IN PREDICTING GLOMERULAR FILTRATION RATE. ESTIMATED GFR IS NOT APPLICABLE FOR DIALYSIS PATIENTS. CBC W/PLT COUNT & AUTO [id number] 14:22:00 Test Item Value Reference Range Comments WHITE BLOOD CELL COUNT (BEAKER) (test cujs=400) 6.0 K/ L 3.5-10.5 RED BLOOD CELL COUNT (BEAKER) (test uonj=555) 3.34 M/ L 3.93-5.22 HEMOGLOBIN (BEAKER) (test smzu=651) 9.7 GM/DL 11.2-15.7 HEMATOCRIT (BEAKER) (test mgpq=425) 33.0 % 34.1-44.9 MEAN CORPUSCULAR VOLUME (BEAKER) (test pgaq=259) 98.8 fL 79.4-94.8 MEAN CORPUSCULAR HEMOGLOBIN (BEAKER) (test 29.0 pg 25.6-32.2 dvxk=035) MEAN CORPUSCULAR HEMOGLOBIN CONC (BEAKER) (test 29.4 GM/DL 32.2-35.5 anez=235) RED CELL DISTRIBUTION WIDTH (BEAKER) (test 16.2 % 11.7-14.4 blxm=098) PLATELET COUNT (BEAKER) (test ertp=728) 363 K/CU MM 150-450 MEAN PLATELET VOLUME (BEAKER) (test ahjh=116) 9.3 fL 9.4-12.3 NUCLEATED RED BLOOD CELLS (BEAKER) (test 0 /100 WBC 0-0 uteq=466) NEUTROPHILS RELATIVE PERCENT (BEAKER) (test 68 % hqrn=939) LYMPHOCYTES RELATIVE PERCENT (BEAKER) (test 15 % sqrm=137) MONOCYTES RELATIVE PERCENT (BEAKER) (test 14 % lkey=785) EOSINOPHILS RELATIVE PERCENT (BEAKER) (test 2 % dfuf=487) BASOPHILS RELATIVE PERCENT (BEAKER) (test 1 % zbal=952) NEUTROPHILS ABSOLUTE COUNT (BEAKER) (test 4.10 K/ L 1.56-6.13 bqbx=851) LYMPHOCYTES ABSOLUTE COUNT (BEAKER) (test 0.91 K/ L 1.18-3.74 yqjz=503) MONOCYTES ABSOLUTE COUNT (BEAKER) (test 0.82 K/ L 0.24-0.36 ngqh=806) EOSINOPHILS ABSOLUTE COUNT (BEAKER) (test 0.12 K/ L 0.04-0.36 gtxl=020) BASOPHILS ABSOLUTE COUNT (BEAKER) (test 0.03 K/ L 0.01-0.08 pznj=398) IMMATURE GRANULOCYTES-RELATIVE PERCENT (BEAKER) 0 % 0-1 (test ruhk=5926) RAD, ABDOMEN/KUB, 1 VIEW [id number] 18:36:00Reason for exam:->FLANK PAINFINAL REPORT Abdomen. MEDICAL HISTORY: Flank pain. COMPARISON STUDY: 2016. FINDINGS: Two supine views of the abdomen demonstrate no dilated loops of large or small bowel. Multiple catheters project over the abdomen. There are extensive degenerative changes with postsurgical changes in the lower lumbar spine and right hip. Atherosclerosis is seen. This film is insensitive for the detection of free air. IMPRESSION: No definite acute abnormality seen on plain film. Signed: Jose Nicholson MDReport Verified Date/Time: 08/15/2019 18:36:07 Reading Location: [facility] [id number] Consult Reading Room ANG, NEPHROSTOMY TUBE CHANGE, [id number] 18:18:00Reason for Exam:-& gt;hydronephrosisFINAL REPORT Procedure: Right percutaneous nephrostomy catheter exchange. Left percutaneous nephroureterostomy catheter exchange. History: Routine maintenance. . Database Management System Specialist: Yaya Templeton M.D. Insurance Job Titles: None. Modality: Fluoroscopy. DOSE REDUCTION: The examination was performed according to departmental dose-optimization program. Fluoro time: 7.2 minutes Radiation dose: 63.8 mGy Kerma-area product. Sedation: No sedation was used. Vital signs were monitored throughout the procedure by a dedicated RN under direct supervision of Dr. Templeton, and remained stable. Physician intra-service sedation time was not applicable minutes. Anesthesia: Lidocaine local infiltration. Medicines: Not applicable Contrast medium: Jisoca210, 30 cc. Estimated blood loss: < 5 cc. Technique: A discussion of the risks, benefits, and alternatives was carried out with the patient. A written informed consent was obtained. The patient expressed understanding and agreed to proceed. A universal timeout was performed prior to starting the procedure. The procedure room personnel used personal protective equipment. The operators used sterile gowns and gloves. The patient was laid prone on the procedure table. The bilateral percutaneous nephrostomy sites was prepped with chlorhexidine gluconate and draped in the standard sterile fashion. A buckle attaching machine operator radiograph was performed showing the catheter to be in the expected location. Contrast injection through the catheter confirmed the catheter tip location in the collecting system. Afterlocal anesthetic infiltration, the retention suture was removed. The catheter was cut and withdrawn over a wire. It was replaced with an identical catheter. The catheter position was confirmed with contrast injection. The catheter was secured to skin with nonabsorbable suture. The catheter was connected to a gravity drainage bag. An aseptic dressing was applied. The contralateral catheter was exchanged using an identical technique. The patient was transferred to the recovery area and discharged fromthe department in stable condition. Complications: None immediate. Findings:As above. Impression:Successful fluoroscopic guided 12 Dutch right nephrostomy catheter exchange and 10.2 Dutch by 24 cm left nephroureteral stent exchange as described above. Further management dictated by the clinical scenario. The nephrostomycatheter should be exchanged at the latest in three months. Thank you for the opportunity to assist in the care of your patient. Signed: Yaya Templeton Verified Date/Time: 2018 18:18:25 Reading Location: [address] Body Reading Room CBC W/ PLT COUNT & AUTO [id number] 17:21:00 Test Item Value Reference Range Comments WHITE BLOOD CELL COUNT (BEAKER) (test wyhd=886) 13.6 K/ L 3.5-10.5 RED BLOOD CELL COUNT (BEAKER) (test euax=759) 2.91 M/ L 3.93-5.22 HEMOGLOBIN (BEAKER) (test pguy=120) 8.7 GM/DL 11.2-15.7 HEMATOCRIT (BEAKER) (test kapa=061) 27.3 % 34.1-44.9 MEAN CORPUSCULAR VOLUME (BEAKER) (test cqjv=607) 93.8 fL 79.4-94.8 MEAN CORPUSCULAR HEMOGLOBIN (BEAKER) (test 29.9 pg 25.6-32.2 fnpz=037) MEAN CORPUSCULAR HEMOGLOBIN CONC (BEAKER) (test 31.9 GM/DL 32.2-35.5 zozv=883) RED CELL DISTRIBUTION WIDTH (BEAKER) (test 16.2 % 11.7-14.4 hueh=183) PLATELET COUNT (BEAKER) (test rgcu=389) 476 K/CU MM 150-450 MEAN PLATELET VOLUME (BEAKER) (test rayv=048) 9.5 fL 9.4-12.3 NUCLEATED RED BLOOD CELLS (BEAKER) (test 0 /100 WBC 0-0 hdrm=994) (CELLAVISION MANUAL DIFF)2019-08-15 17:21:00 Test Item Value Reference Range Comments NEUTROPHILS - REL (CELLAVISION)(BEAKER) (test 80 % yqtd=9985) LYMPHOCYTES - REL (CELLAVISION)(BEAKER) (test 9 % xhee=6110) MONOCYTES - REL (CELLAVISION)(BEAKER) (test 8 % xoaf=6410) METAMYELOCYTES - REL (CELLAVISION)(BEAKER) (test 1 % 0-0 orer=0284) MYELOCYTES - REL (CELLAVISION)(BEAKER) (test 1 % 0-0 trrq=2527) BANDS - REL (CELLAVISION)(BEAKER) (test 1 % 0-10 cxxl=1875) NEUTROPHILS - ABS (CELLAVISION)(BEAKER) (test 10.88 K/ul 1.56-6.13 ztsg=6374) LYMPHOCYTES - ABS (CELLAVISION)(BEAKER) (test 1.22 K/ul 1.18-3.74 ktnn=5941) MONOCYTES - ABS (CELLAVISION)(BEAKER) (test 1.09 K/uL 0.24-0.36 kpah=5481) METAMYELOCYTES - ABS (CELLAVISION)(BEAKER) (test 0.14 K/uL 0.00-0.00 gwdh=5423) MYELOCYTES-ABS (CELLAVISION)(BEAKER) (test 0.14 K/uL 0.00-0.00 wqwm=0542) BANDS - ABS (CELLAVISION)(BEAKER) (test 0.14 K/uL 0.00-0.80 hvht=2892) TOTAL COUNTED (BEAKER) (test xtbf=5542) 100 WBC MORPHOLOGY (BEAKER) (test xdhr=768) Normal GIANT PLATELETS (BEAKER) (test clfj=843) Present POLYCHROMATOPHILLIC RBCS(BEAKER) (test dtwb=409) 1+ few POIKILOCYTES (BEAKER) (test vbvi=038) 1+ few TARGET CELLS (BEAKER) (test enud=038) 1+ few OVALOCYTES (BEAKER) (test mago=819) 1+ few PLATELET CONCENTRATION (CELLAVISION)(BEAKER) Increased (test fkrb=9235) Received comment: User comments: Slide comments:BASIC METABOLIC [id number] 17:15:00 Test Item Value Reference Range Comments SODIUM (BEAKER) (test 137 meq/L 136-145 wmzu=759) POTASSIUM (BEAKER) (test 4.0 meq/L 3.5-5.1 bvsn=285) CHLORIDE (BEAKER) (test 103 meq/L 98-107 yjzp=035) CO2 (BEAKER) (test 24 meq/L 22-29 nuhu=529) BLOOD UREA NITROGEN 35 mg/dL 7-21 (BEAKER) (test bgpb=245) CREATININE (BEAKER) (test 1.53 mg/dL 0.57-1.25 cgjt=836) GLUCOSE RANDOM (BEAKER) 146 mg/dL 70-105 (test uned=489) CALCIUM (BEAKER) (test 9.2 mg/dL 8.4-10.2 jxzm=836) EGFR (BEAKER) (test 33 mL/min/1.73 sq m ESTIMATED GFR IS NOT nlwr=7720) ACCURATE CREATININE CLEARANCE IN PREDICTING GLOMERULAR FILTRATION RATE. ESTIMATED GFR IS NOT APPLICABLE FOR DIALYSIS PATIENTS. URINALYSIS W/ REFLEX URINE [id number] 17:12:00 Test Item Value Reference Range Comments COLOR (BEAKER) (test tnfl=352) Dark Red CLARITY (BEAKER) (test ryjd=562) Turbid SPECIFIC GRAVITY UA (BEAKER) (test uyhw=014) 1.015 1.001-1.035 PH UA (BEAKER) (test fejf=345) 7.0 5.0-8.0 PROTEIN UA (BEAKER) (test ueqe=422) 200 mg/dL Negative GLUCOSE UA (BEAKER) (test glni=543) Negative Negative KETONES UA (BEAKER) (test htkp=368) Negative Negative BILIRUBIN UA (BEAKER) (test ugzg=471) Negative Negative BLOOD UA (BEAKER) (test osvt=402) Large Negative NITRITE UA (BEAKER) (test whxf=520) Negative Negative LEUKOCYTE ESTERASE UA (BEAKER) (test kdlf=227) Large Negative UROBILINOGEN UA (BEAKER) (test hqjz=718) 0.2 mg/dL 0.2-1.0 RBC UA (BEAKER) (test luqj=978) > /HPF WBC UA (BEAKER) (test tcmz=189) > /HPF SOURCE(BEAKER) (test faku=1719) [id number] 12:26:00 Test Item Value Reference Range Comments MAGNESIUM (BEAKER) (test ycde=694) 1.8 mg/dL 1.6-2.6 BASIC METABOLIC [id number] 12:26:00 Test Item Value Reference Range Comments SODIUM (BEAKER) (test 136 meq/L 136-145 bljx=895) POTASSIUM (BEAKER) (test 3.4 meq/L 3.5-5.1 brlp=508) CHLORIDE (BEAKER) (test 94 meq/L 98-107 cdxr=183) CO2 (BEAKER) (test 31 meq/L 22-29 kfwq=645) BLOOD UREA NITROGEN 38 mg/dL 7-21 (BEAKER) (test jqkg=131) CREATININE (BEAKER) (test 1.25 mg/dL 0.57-1.25 jkke=926) GLUCOSE RANDOM (BEAKER) 105 mg/dL 70-105 (test fcuv=628) CALCIUM (BEAKER) (test 9.5 mg/dL 8.4-10.2 hwol=891) EGFR (BEAKER) (test 42 mL/min/1.73 sq m ESTIMATED GFR IS NOT uhxh=9650) ACCURATE CREATININE CLEARANCE IN PREDICTING GLOMERULAR FILTRATION RATE. ESTIMATED GFR IS NOT APPLICABLE FOR DIALYSIS PATIENTS. ANG, NEPHROSTOMY TUBE CHANGE, [id number] 13:53:00Reason for Exam:-> hydronephrosis unspecifiedFINAL REPORT Fluoroscopic guided right nephrostomy and left nephroureterostomy catheter exchange. History: Chronic ureteral obstruction Modality: Fluoroscopy Sedation: None Database Management System Specialist : Gerald Baeza MD. Insurance Job Titles: None. Approach: Via indwelling bilateral catheters Estimated blood loss: < 5 cc. Specimen: None. Fluoroscopy Time: 5.1 min.Reference Air Kerma (Ka, r): 51.5 mGy. Technique: Informed written consent was obtained. [...] gown for performing radiologist and scrub technologist. 1% lidocaine was used for local anesthesia. Contrast was injected via the indwelling leftpercutaneous nephroureterostomy catheter confirming intraluminal position. The existing catheter wascut. A 0.035 Glidewire was advanced through the existing catheter into the urinary bladder. The existing catheter was removed over wire. The Glidewire was exchanged over a 4 Dutch Walsh catheter for a 0.035 inch Bentson wire. A new 10.2 Dutch by 24 cm nephroureterostomy catheter was advanced over wire with distal pigtail formed within the urinary bladder and proximal pigtail within the left renal pelvis. Contrast injection confirmed position. The catheter was fixed to the skin with silk suture. A sterile dressing was applied. 1% lidocaine was used for local anesthesia. The indwelling right nephrostomy catheter was found be excluded. It would 0.035 wire could not be advanced through the indwelling catheter. Subsequently, a 4 Dutch Walsh catheter and 0.035 angled Glidewire was advanced alongside the catheter and access to the right renal pelvis was obtained. The existing catheter was removed. The Glidewire was exchanged for a 0.035 Bentson wire. A new 12 Dutch nephrostomy catheter wasadvanced over wire with pigtail formed within the right renal pelvis. The catheter was fixed to the skin with silk suture. A sterile dressing was applied. The patient tolerated the procedure without immediate complication. Impression: Successful fluoroscopic guided left percutaneous nephroureterostomy and right sided percutaneous nephrostomy catheter exchange. Signed: Gerald Baeza [facility] Verified Date/Time: 06/02/2019 13:53:40 Reading Location: [place] [address] Angio Body Reading Room Electronically signed by: GERALD BAEZA MD on 2018 01:53 PMANG, NEPHROSTOMY TUBE CHANGE, [id number] 19:15:00Reason for Exam:->hydronephrosis unspecifiedFINAL REPORT History : Chronic renal obstruction for routine nephrostomy catheter exchange. PROCEDURE : Following informed written consent, the patient was placed in a prone position on the angiographic table and both existing nephrostomy catheters were prepped and draped in the usual sterile manner. Maximum sterile barrier techniques were utilized. 2% lidocaine was given locallyfor anesthesia. No conscious sedation was administered. Patient also received 500 mg of IV Levaquin prior to the procedure for antibiotic prophylaxis. Nephrostograms were performed through each of the patient's indwelling catheters to confirm positions. The patient's right external nephrostomy catheter was then cut and removed over a Bentson wire. A new 12 Dutch external nephrostomy catheter was placed over the wire, through the existing tract and into position within the right renal pelvis under fluoroscopic control. Repeat contrast injection was performed to confirm position. The new catheter was then secured to the skin using 2-0 silk suture and placed to external gravity bag drainage. The patient' s indwelling left nephroureteral stent was then cut and removed over a wire. A new 10 Dutch by 24 cm nephroureteral stent was placed over the wire, through the existing tract and into position within the left renal collecting system. Repeat contrast injection was performed to confirm position. The catheter was then secured to the skin using 2-0 silk suture and placed to external gravity bag drainage. Overall, the patient tolerated the procedure well without immediate complications and was discharged from the department in stable condition. FINDINGS: Multiple images obtained during the procedure show both pre -existing and new nephrostomy catheters to lie in expected positions. The right external nephrostomy catheter is coiled within the right renal pelvis. The left nephroureteral stent catheter lies in expected position with its distal tip coiled in the urinary bladder and its proximal tip coiled in the left renal collecting system. Extensive lumbar surgical hardware is also noted. IMPRESSION : 1. Successful uncomplicated fluoroscopically guided exchange of the patient's right external and left internal/external nephrostomy catheters, as described in detail above. Total fluoroscopy time:1.5 minutes. Estimated total patient dose reported as (Ka,r): 45 mGy Signed: Leslie العراقي MDReport Verified Date/ Time: 02/23/2019 19:15:22 Reading Location: [place] [address] Angio Body Reading Room BASI METABOLIC [id number] 11:18:00 Test Item Value Reference Range Comments SODIUM (BEAKER) (test 137 meq/L 136-145 nsmm=106) POTASSIUM (BEAKER) (test 4.4 meq/L 3.5-5.1 yxum=771) CHLORIDE (BEAKER) (test 106 meq/L 98-107 pkxr=325) CO2 (BEAKER) (test 23 meq/L 22-29 sisb=145) BLOOD UREA NITROGEN 32 mg/dL 7-21 (BEAKER) (test cual=609) CREATININE (BEAKER) (test 1.10 mg/dL 0.57-1.25 upmw=372) GLUCOSE RANDOM (BEAKER) 128 mg/dL 70-105 (test ekev=452) CALCIUM (BEAKER) (test 9.2 mg/dL 8.4-10.2 ofmw=323) EGFR (VERONICA) (test 48 mL/min/1.73 sq m ESTIMATED GFR IS NOT etrs=2080) ACCURATE CREATININE CLEARANCE IN PREDICTING GLOMERULAR FILTRATION RATE. ESTIMATED GFR IS NOT APPLICABLE FOR DIALYSIS PATIENTS. HARPREET, NEPHROSTOMY TUBE CHANGE, [id number] 17:38:00Reason for Exam:-> n13.30FINAL REPORT Fluoroscopic guided right nephrostomy tube and left nephroureterostomy catheter replacement, 11/25/2018. Clinical History: Ureteral obstruction. Modality: Fluoroscopy. Database Management System Specialist : Jenny. Insurance Job Titles: [employer]. Sedation: None. Estimated Blood Loss: Less than 5 cc. Specimen: None. Fluoro Time: 4.5 min. Dose (Ka,r): 46.7 mGy. Technique: Informed written consent was obtained. [...] for performing radiologist and scrub technologist. A Bentson wire was advanced through the existing left-sided nephroureteral catheter and curled within the bladder. The old catheter was removed and a new 10.2 Dutch x 24 cm nephrostomy catheter was advancedover the wire through the kidney until the tip was in the bladder. The wire was then removed, and the pigtail of the catheter was locked. The catheter was then secured onto the skin with 2-0 silk. A Bentson wire was then advanced through the existing right-sided nephrostomy catheter and curled withinthe right renal pelvis. The old catheter was removed and a new 12 Dutch drainage catheter was advanced over the wire into the right renal pelvis. The patient tolerated the procedure well, without immediate complications. The patient's vital signs remained stable throughout the procedure. Patient disposition: The patient was discharged from the department in stable condition. Impression:Successful and uncomplicated fluoroscopic guided right nephrostomy tube and left nephroureterostomy catheter replacement. Signed: Tray Alvaradoeport Verified Date/Time: 11/25/2018 17: 38:15 Reading Location: [facility] B1 P048 Angio Body Reading Room 05:38 PMANG, NEPHROSTOMY TUBE CHANGE, [id number] 14:10:00Reason for Exam:->hydronephrosis unspecified hydronephrosis typeFINAL REPORT Right percutaneous nephrostomy and left percutaneous nephroureterostomy catheter exchange. History: Ureteral obstruction Modality: fluoroscopy. Sedation: None Database Management System Specialist: Gerald Baeza MD. Insurance Job Titles: None. Approach: Lashonda Oakes (resident) Estimated blood [...] sterile gown for performing radiologist and scrub technologist.Contrast was injected via the indwelling right nephrostomy catheter confirming intraluminal location. One percent lidocaine was used for local anesthesia. The existing catheter was cut and a 0.035 wirewas advanced through the catheter and coiled within the right renal pelvis. The existing catheter was removed over wire and a new 12 Dutch nephrostomy catheter was advanced over wire with [...] catheter was removed and a new 8.5 Dutch by 24 cm nephroureterostomy catheter was advanced over wire with distal pigtail formed within the urinary bladder and proximal pigtail formed within the left renal pelvis. Contrast injection confirmed position. The catheter was fixed to the skin with silk suture. A sterile dressing was applied. The patient for the procedurewell without immediate complication. Impression: Successful fluoroscopic-guided right nephrostomy and left nephroureterostomy catheter exchange. Signed: Gerald Baezaort Verified Date/Time: 2017 14:10:12 Reading Location: [facility] P048 Angio Body Reading Room [id number] 12:58:00 Test Item Value Reference Range Comments PROTIME (BEAKER) (test myqo=965) 13.3 seconds 11.7-14.7 INR (BEAKER) (test awiu=493) 1.0 <=5.9 PARTIAL THROMBOPLASTIN TIME (BEAKER) (test 29.4 seconds 22.5-36.0 gtxu=781) RECOMMENDED COUMADIN/WARFARIN INR THERAPY RANGESSTANDARD DOSE: 2.0 - 3.0 Includes: PROPHYLAXIS forvenous thrombosis, systemic embolization; TREATMENT for venous thrombosis and/or pulmonary embolus.HIGH RISK: Target INR is 2.5-3.5 for patients with mechanical heart valves.BASIC METABOLIC [id number] 12:19: 00 Test Item Value Reference Range Comments SODIUM (BEAKER) (test 138 meq/L 136-145 qfrf=586) POTASSIUM (BEAKER) (test 4.2 meq/L 3.5-5.1 qvsb=439) CHLORIDE (BEAKER) (test 101 meq/L 98-107 efls=949) CO2 (BEAKER) (test 25 meq/L 22-29 zkiq=344) BLOOD UREA NITROGEN 36 mg/dL 7-21 (BEAKER) (test wkuk=470) CREATININE (BEAKER) (test 1.20 mg/dL 0.57-1.25 ffpq=706) GLUCOSE RANDOM (BEAKER) 60 mg/dL 70-105 (test znre=315) CALCIUM (BEAKER) (test 9.3 mg/dL 8.4-10.2 nmgy=003) EGFR (BEAKER) (test 44 mL/min/1.73 sq m ESTIMATED GFR IS NOT inca=0660) ACCURATE CREATININE CLEARANCE IN PREDICTING GLOMERULAR FILTRATION RATE. ESTIMATED GFR IS NOT APPLICABLE FOR DIALYSIS PATIENTS. [id number] 11:43:00 Test Item Value Reference Range Comments PROTIME (BEAKER) (test vnyi=310) 13.1 seconds 11.7-14.7 INR (BEAKER) (test fsrd=514) 1.0 <=5.9 PARTIAL THROMBOPLASTIN TIME (BEAKER) (test 30.4 seconds 22.5-36.0 iayy=375) RECOMMENDED COUMADIN/WARFARIN INR THERAPY RANGESSTANDARD DOSE: 2.0 - 3.0 Includes: PROPHYLAXIS forvenous thrombosis, systemic embolization; TREATMENT for venous thrombosis and/or pulmonary embolus.HIGH RISK: Target INR is 2.5-3.5 for patients with mechanical heart valves.CBC W/PLT COUNT & AUTO [id number] 11:03:00 Test Item Value Reference Range Comments WHITE BLOOD CELL COUNT (BEAKER) (test lbqp=841) 8.0 K/ L 3.5-10.5 RED BLOOD CELL COUNT (BEAKER) (test frro=105) 3.39 M/ L 3.93-5.22 HEMOGLOBIN (BEAKER) (test ildw=170) 10.8 GM/DL 11.2-15.7 HEMATOCRIT (BEAKER) (test fpim=628) 36.3 % 34.1-44.9 MEAN CORPUSCULAR VOLUME (BEAKER) (test qauj=553) 107.1 fL 79.4-94.8 MEAN CORPUSCULAR HEMOGLOBIN (BEAKER) (test 31.9 pg 25.6-32.2 ateb=170) MEAN CORPUSCULAR HEMOGLOBIN CONC (BEAKER) (test 29.8 GM/DL 32.2-35.5 zyix=560) RED CELL DISTRIBUTION WIDTH (BEAKER) (test 15.4 % 11.7-14.4 ssxp=286) PLATELET COUNT (BEAKER) (test hyhj=059) 237 K/CU MM 150-450 MEAN PLATELET VOLUME (BEAKER) (test mszu=968) 11.2 fL 9.4-12.3 NUCLEATED RED BLOOD CELLS (BEAKER) (test 0 /100 WBC 0-0 xjng=820) NEUTROPHILS RELATIVE PERCENT (BEAKER) (test 70 % hbix=666) LYMPHOCYTES RELATIVE PERCENT (BEAKER) (test 18 % ejnh=523) MONOCYTES RELATIVE PERCENT (BEAKER) (test 11 % attz=364) EOSINOPHILS RELATIVE PERCENT (BEAKER) (test 1 % wpxo=857) BASOPHILS RELATIVE PERCENT (BEAKER) (test 0 % hyos=762) NEUTROPHILS ABSOLUTE COUNT (BEAKER) (test 5.56 K/ L 1.56-6.13 kphh=848) LYMPHOCYTES ABSOLUTE COUNT (BEAKER) (test 1.45 K/ L 1.18-3.74 xdob=625) MONOCYTES ABSOLUTE COUNT (BEAKER) (test 0.85 K/ L 0.24-0.36 hrpd=208) EOSINOPHILS ABSOLUTE COUNT (BEAKER) (test 0.06 K/ L 0.04-0.36 xxgc=117) BASOPHILS ABSOLUTE COUNT (BEAKER) (test 0.03 K/ L 0.01-0.08 gxup=584) IMMATURE GRANULOCYTES-RELATIVE PERCENT (BEAKER) 0 % 0-1 (test qmbu=8932) CLAU MULLINS W/ FLUORO NEPH, TUBE [id number] 19:42:00FINAL REPORT Fluoroscopic guided bilateral nephrostomy tube exchange, 05/06/2018. Clinical History: Ureteral obstruction, clogged right PCN. Modality: Fluoroscopy. Database Management System Specialist: Jenny. Insurance Job Titles: Biju. Sedation: None. Estimated Blood Loss: Less [...] catheter was removed and a new 8 Dutch 24 cm nephroureterostomy catheter was advanced over the wire into the bladder. Pigtail was locked. Contrast was injected into the right PCN. A Glidewire was advanced through the catheter and curled within the right renal pelvis. The old catheter was removed and a new 12 Dutch pigtail catheter was placed into the right [...] Verified Date/ Time: 05/06/2018 19:42:30 Reading Location: [facility] P048 Angio Body Reading Room URINE [id number] 12:31:00 Test Item Value Reference Range Comments CULTURE (BEAKER) (test brpp=7283) >100,000 col/mL skin thomas ANG, NEPHROSTOMY TUBE CHANGE, [id number] 17:42:00Reason for exam:->Tube not drainingFINAL REPORT Right nephrostomy catheter exchange. History: Malfunction right nephrostomy catheter Modality: Fluoroscopy Sedation:None Database Management System Specialist: Gerald Baeza MD. Insurance Job Titles: None. Approach: Right flank Estimated blood loss: [...] was removed over wire. A new 10.2 Dutch nephrostomy catheter was advanced over wire with pigtail formed within the right renal pelvis. Contrast injection confirmed positioning. The catheter was fixed to the skin withsilk suture. A sterile dressing was applied. The patient tolerated the procedure well without immediate application. Impression: Successful right percutaneous nephrostomy catheter exchange. Signed: Gerald Baezaeport Verified Date/Time: 04/09/2018 17:42:07 Reading Location: [place] [address] Angio Body Reading Room URINALYSIS W/ [id number] 14 :48:00 Test Item Value Reference Range Comments COLOR (BEAKER) (test jnyd=014) Yellow CLARITY (BEAKER) (test ysce=266) Hazy SPECIFIC GRAVITY UA (BEAKER) (test mjeh=180) 1.013 1.001-1.035 PH UA (BEAKER) (test ugmb=648) 8.5 5.0-8.0 PROTEIN UA (BEAKER) (test jagx=051) 300 mg/dL Negative GLUCOSE UA (BEAKER) (test lxcp=028) Negative Negative KETONES UA (BEAKER) (test qzeh=384) Negative Negative BILIRUBIN UA (BEAKER) (test dntw=816) Negative Negative BLOOD UA (BEAKER) (test uulq=713) Trace Negative NITRITE UA (BEAKER) (test wjzw=769) Negative Negative LEUKOCYTE ESTERASE UA (BEAKER) (test vynx=477) Large Negative UROBILINOGEN UA (BEAKER) (test zokn=487) 0.2 mg/dL 0.2-1.0 RBC UA (BEAKER) (test phek=644) 23 /HPF WBC UA (BEAKER) (test vonc=161) 0 /HPF MUCUS (BEAKER) (test qevc=0883) Occasional TRIPLE PHOSPHATE CRYSTALS (BEAKER) (test Occasional nkvm=7947) SOURCE(BEAKER) (test uokh=7774) Urine, [place] BASIC METABOLIC [id number] 14:16:00 Test Item Value Reference Range Comments SODIUM (BEAKER) (test 138 meq/L 136-145 bpuo=582) POTASSIUM (BEAKER) (test 3.8 meq/L 3.5-5.1 aztc=581) CHLORIDE (BEAKER) (test 104 meq/L 98-107 yapl=626) CO2 (BEAKER) (test 23 meq/L 22-29 fiew=672) BLOOD UREA NITROGEN 30 mg/dL 7-21 (BEAKER) (test nkgl=787) CREATININE (BEAKER) (test 1.00 mg/dL 0.57-1.25 pxbs=339) GLUCOSE RANDOM (BEAKER) 89 mg/dL 70-105 (test zhpp=868) CALCIUM (BEAKER) (test 9.6 mg/dL 8.4-10.2 nthp=842) EGFR (BEAKER) (test 54 mL/min/1.73 sq m ESTIMATED GFR IS NOT mgkr=4514) ACCURATE CREATININE CLEARANCE IN PREDICTING GLOMERULAR FILTRATION RATE. ESTIMATED GFR IS NOT APPLICABLE FOR DIALYSIS PATIENTS. [id number] 14:06:00 Test Item Value Reference Range Comments PROTIME (BEAKER) (test jnix=406) 13.8 seconds 11.7-14.7 INR (BEAKER) (test fzad=293) 1.1 <=5.9 PARTIAL THROMBOPLASTIN TIME (BEAKER) (test 30.3 seconds 22.5-36.0 dpht=000) RECOMMENDED COUMADIN/WARFARIN INR THERAPY RANGESSTANDARD DOSE: 2.0 - 3.0 Includes: PROPHYLAXIS forvenous thrombosis, systemic embolization; TREATMENT for venous thrombosis and/or pulmonary embolus.HIGH RISK: Target INR is 2.5-3.5 for patients with mechanical heart valves.CBC W/PLT COUNT & AUTO [id number] 13:53:00 Test Item Value Reference Range Comments WHITE BLOOD CELL COUNT (BEAKER) (test rmrq=807) 7.1 K/ L 3.5-10.5 RED BLOOD CELL COUNT (BEAKER) (test ovqy=575) 3.32 M/ L 3.93-5.22 HEMOGLOBIN (BEAKER) (test cxka=482) 10.5 GM/DL 11.2-15.7 HEMATOCRIT (BEAKER) (test bcfa=143) 32.0 % 34.1-44.9 MEAN CORPUSCULAR VOLUME (BEAKER) (test myqt=386) 96.4 fL 79.4-94.8 MEAN CORPUSCULAR HEMOGLOBIN (BEAKER) (test 31.6 pg 25.6-32.2 howx=004) MEAN CORPUSCULAR HEMOGLOBIN CONC (BEAKER) (test 32.8 GM/DL 32.2-35.5 ahuo=865) RED CELL DISTRIBUTION WIDTH (BEAKER) (test 14.6 % 11.7-14.4 zbpe=300) PLATELET COUNT (BEAKER) (test prdx=613) 228 K/CU MM 150-450 MEAN PLATELET VOLUME (BEAKER) (test qzfz=623) 10.8 fL 9.4-12.3 NUCLEATED RED BLOOD CELLS (BEAKER) (test 0 /100 WBC 0-0 yzmh=369) NEUTROPHILS RELATIVE PERCENT (BEAKER) (test 68 % oevi=452) LYMPHOCYTES RELATIVE PERCENT (BEAKER) (test 18 % najl=189) MONOCYTES RELATIVE PERCENT (BEAKER) (test 13 % rsru=445) EOSINOPHILS RELATIVE PERCENT (BEAKER) (test 1 % noay=019) BASOPHILS RELATIVE PERCENT (BEAKER) (test 0 % giot=024) NEUTROPHILS ABSOLUTE COUNT (BEAKER) (test 4.78 K/ L 1.56-6.13 ercf=026) LYMPHOCYTES ABSOLUTE COUNT (BEAKER) (test 1.24 K/ L 1.18-3.74 juhr=514) MONOCYTES ABSOLUTE COUNT (BEAKER) (test 0.91 K/ L 0.24-0.36 tkrw=370) EOSINOPHILS ABSOLUTE COUNT (BEAKER) (test 0.07 K/ L 0.04-0.36 cckd=339) BASOPHILS ABSOLUTE COUNT (BEAKER) (test 0.02 K/ L 0.01-0.08 uteb=299) IMMATURE GRANULOCYTES-RELATIVE PERCENT (BEAKER) 0 % 0-1 (test lrve=4879) ANG, NEPHROSTOMY TUBE CHANGE, [id number] 09:41:00Reason for exam:-> dysfunction nephrostomy tube on [...] removed over a wire. A new 10.2 Dutch pigtail nephrostomy catheter was placed over the [...] as (Ka,r): 6.3 mGy Signed: Leslie العراقي JEFF[facility] HOSPITALeport Verified Date/Time: 03/15/2018 09:41:31 Reading Location:[place] [address] Angio Body Reading Room ANG, NEPHROSTOMY TUBE CHANGE, [id number] 16:05:00Reason for Exam:->n13.30FINAL REPORT Left percutaneous nephroureterostomy and right percutaneous nephrostomy catheter exchange. History: 77 -year-old female with history of ureteral strictures presents for routine catheter exchange. Modality: FluoroscopySedation: None Database Management System Specialist: Gerald Baeza MD. Insurance Job Titles: None. Approach: Bilateral flanks Estimated blood loss: [...] for performing radiologist and scrub technologist. A buckle attaching machine operator image images was obtained. Contrast was injected through the indwelling left percutaneous nephroureterostomy catheter confirming position. 2% lidocaine was used for local anesthesia. The indwelling catheter was cut and a 0.035 Bentson wire was advanced and coiled within the urinary bladder. The existing catheter was removed over wire and a new 8.5 Dutch by 22 cm nephroureterostomy was advanced over [...] was removed thewire and a new 10.2 Dutch pigtail catheter was advanced over wire with pigtail formed within the right renal pelvis. The catheter was fixed to the skin with silk suture and dressing was applied. The patient tolerated the procedure well without immediate complication. Impression: Successful fluoroscopic-guided left percutaneous nephroureterostomy and right percutaneous nephrostomy catheter exchange. Signed: Gerald Baeza MDReport Verified Date/Time: 02/24/2018 16:05:12 Reading Location: [address] Body Reading Room Electronically signed by: GERALD BAEZA MD on 2017 04:05 PMANG, NEPHROSTOMY TUBE CHANGE, [id number] 16:05:00Reason for Exam:->n13.30FINAL REPORT Left percutaneous nephroureterostomy and right percutaneous nephrostomy catheter exchange. History: 77-year-old female with history of ureteral strictures presents for routine catheter exchange. Modality: FluoroscopySedation: None Database Management System Specialist: Gerald Baeza MD. Insurance Job Titles: None. Approach: Bilateral flanks Estimated blood loss: [...] for performing radiologist and scrub technologist. A buckle attaching machine operator image images was obtained. Contrast was injected through the indwelling left percutaneous nephroureterostomy catheter confirming position. 2% lidocaine was used for local anesthesia. The indwelling catheter was cut and a 0.035 Bentson wire was advanced and coiled within the urinary bladder. The existing catheter was removed over wire and a new 8.5 Dutch by 22 cm nephroureterostomy was advanced over [...] was removed thewire and a new 10.2 Dutch pigtail catheter was advanced over wire with pigtail formed within the right renal pelvis. The catheter was fixed to the skin with silk suture and dressing was applied. The patient tolerated the procedure well without immediate complication. Impression: Successful fluoroscopic-guided left percutaneous nephroureterostomy and right percutaneous nephrostomy catheter exchange. Signed: Gerald Baeza MDReport Verified Date/Time: 02/24/2018 16:05:12 Reading Location: [facility] P048 Angio Body Reading Room Electronically signed by: GERALD BAEZA MD on 2017 04:05 PMANG, NEPHROSTOMY TUBE CHANGE, [id number] 17:02:00Reason for exam:->ABDOMINAL PAIN, flank pain, blockageFINAL [...] removed over a Bentsonwire. A new 10.2 Dutch pigtail nephrostomy catheter was placed over the [...] Verified Date/Time : 12/29/2017 17:02:02 Reading Location: [place] [address] Angio Body Reading Room URINE [id number] 12:00:00 Test Item Value Reference Range Comments CULTURE (BEAKER) (test whys=0589) >100,000 col/mL skin thomas URINALYSIS W/ [id number] 10:15:00 Test Item Value Reference Range Comments COLOR (BEAKER) (test sewy=969) [place] CLARITY (BEAKER) (test bamo=132) Cloudy SPECIFIC GRAVITY UA (BEAKER) (test 1.021 1.001-1.035 vlsi=109) PH UA (BEAKER) (test cfcb=408) 8.5 5.0-8.0 PROTEIN UA (BEAKER) (test ffdo=639) >600 mg/dL Negative GLUCOSE UA (BEAKER) (test hsrl=553) Negative Negative KETONES UA (BEAKER) (test rbnp=572) Negative Negative BILIRUBIN UA (BEAKER) (test utqb=395) Positive Negative BLOOD UA (BEAKER) (test qrzk=012) Negative Negative NITRITE UA (BEAKER) (test yhqn=257) Positive Negative LEUKOCYTE ESTERASE UA (BEAKER) (test Small Negative gvpb=429) UROBILINOGEN UA (BEAKER) (test yvcq=753) 2.0 mg/dL 0.2-1.0 RBC UA (BEAKER) (test mbuq=361) 0 /HPF WBC UA (BEAKER) (test ouen=749) 94 /HPF MUCUS (BEAKER) (test itdb=3340) Occasional TRIPLE PHOSPHATE CRYSTALS (BEAKER) (test Moderate dxrr=9709) SOURCE(BEAKER) (test gqzy=3089) Urine, Nephrostomy BASIC METABOLIC [id number] 10:04:00 Test Item Value Reference Range Comments SODIUM (BEAKER) (test 137 meq/L 136-145 hjqu=755) POTASSIUM (BEAKER) (test 5.0 meq/L 3.5-5.1 cumv=571) CHLORIDE (BEAKER) (test 104 meq/L 98-107 dcyd=758) CO2 (BEAKER) (test 25 meq/L 22-29 qzlp=315) BLOOD UREA NITROGEN 39 mg/dL 7-21 (BEAKER) (test vnqs=340) CREATININE (BEAKER) (test 1.13 mg/dL 0.57-1.25 nioj=329) GLUCOSE RANDOM (BEAKER) 127 mg/dL 70-105 (test zxdg=964) CALCIUM (BEAKER) (test 9.0 mg/dL 8.4-10.2 xylm=562) EGFR (BEAKER) (test 47 mL/min/1.73 sq m ESTIMATED GFR IS NOT ydpj=2073) ACCURATE CREATININE CLEARANCE IN PREDICTING GLOMERULAR FILTRATION RATE. ESTIMATED GFR IS NOT APPLICABLE FOR DIALYSIS PATIENTS. [id number] 09:53:00 Test Item Value Reference Range Comments PROTIME (BEAKER) (test dxkv=835) 13.0 seconds 11.7-14.7 INR (BEAKER) (test vvnw=845) 1.0 <=5.9 PARTIAL THROMBOPLASTIN TIME (BEAKER) (test 28.9 seconds 22.5-36.0 dhwo=356) RECOMMENDED COUMADIN/WARFARIN INR THERAPY RANGESSTANDARD DOSE: 2.0 - 3.0 Includes: PROPHYLAXIS forvenous thrombosis, systemic embolization; TREATMENT for venous thrombosis and/or pulmonary embolus.HIGH RISK: Target INR is 2.5-3.5 for patients with mechanical heart valves.CBC W/PLT COUNT & AUTO [id number] 09:52:00 Test Item Value Reference Range Comments WHITE BLOOD CELL COUNT (BEAKER) (test ouix=641) 10.4 K/ L 3.5-10.5 RED BLOOD CELL COUNT (BEAKER) (test nxbd=204) 3.48 M/ L 3.93-5.22 HEMOGLOBIN (BEAKER) (test ksuf=314) 10.8 GM/DL 11.2-15.7 HEMATOCRIT (BEAKER) (test gmng=918) 34.4 % 34.1-44.9 MEAN CORPUSCULAR VOLUME (BEAKER) (test tpzo=321) 98.9 fL 79.4-94.8 MEAN CORPUSCULAR HEMOGLOBIN (BEAKER) (test 31.0 pg 25.6-32.2 oknp=291) MEAN CORPUSCULAR HEMOGLOBIN CONC (BEAKER) (test 31.4 GM/DL 32.2-35.5 eyhf=584) RED CELL DISTRIBUTION WIDTH (BEAKER) (test 14.0 % 11.7-14.4 zfxj=084) PLATELET COUNT (BEAKER) (test apdd=810) 255 K/CU MM 150-450 MEAN PLATELET VOLUME (BEAKER) (test awwn=299) 10.6 fL 9.4-12.3 NUCLEATED RED BLOOD CELLS (BEAKER) (test 0 /100 WBC 0-0 qcmw=150) NEUTROPHILS RELATIVE PERCENT (BEAKER) (test 82 % cfnd=059) LYMPHOCYTES RELATIVE PERCENT (BEAKER) (test 9 % ttyw=215) MONOCYTES RELATIVE PERCENT (BEAKER) (test 8 % mjer=546) EOSINOPHILS RELATIVE PERCENT (BEAKER) (test 1 % nhio=688) BASOPHILS RELATIVE PERCENT (BEAKER) (test 0 % mhej=492) NEUTROPHILS ABSOLUTE COUNT (BEAKER) (test 8.58 K/ L 1.56-6.13 snha=681) LYMPHOCYTES ABSOLUTE COUNT (BEAKER) (test 0.95 K/ L 1.18-3.74 yjpu=641) MONOCYTES ABSOLUTE COUNT (BEAKER) (test 0.79 K/ L 0.24-0.36 igap=502) EOSINOPHILS ABSOLUTE COUNT (BEAKER) (test 0.05 K/ L 0.04-0.36 pydd=654) BASOPHILS ABSOLUTE COUNT (BEAKER) (test 0.02 K/ L 0.01-0.08 suhx=078) IMMATURE GRANULOCYTES-RELATIVE PERCENT (BEAKER) 0 % 0-1 (test kiwb=7319) URINE [id number] 09:49:00 Test Item Value Reference Range Comments CULTURE (BEAKER) (test lhcx=3038) Amikacin (test code=1) Susceptible 0-16 , Resistant <0 or >16 Aztreonam (test code=32) Susceptible 0-8 , Resistant <0 or >8 Cefepime (test code=51) Susceptible 0-8 , Resistant <0 or >8 Ceftazidime (test code=27) Susceptible 0-8 , Resistant <0 or >8 Ciprofloxacin (test code=7) Susceptible 0-1 , Resistant <0 or >1 Doripenem (test ibcw=924) Susceptible 0-2 , Resistant <0 or >2 [...] or >4 CULTURE (BEAKER) (test 80-89,000 col/mL lxzg=3192) Pseudomonas aeruginosa >100,000 col/mL skin floraANG, NEPHROSTOMY TUBE CHANGE, [id number] 09:10: 00Reason for exam:->ABDOMINAL PAINFINAL REPORT Fluoroscopic guided bilateral nephrostomy tube exchange ClinicalHistory: Abdominal pain, bilateral percutaneous nephrostomy catheter. Modality: Sonography and fluoroscopy Database Management System Specialist: Star Brown MD. Insurance Job Titles : None.. SEDATION: None. Estimated Blood Loss: [...] catheter into the bladder. A new 8.5 Dutch by 24 cm nephroureteral catheter was placed. [...] catheter into the bladder. A new 10 Dutch pigtail catheter was placed. The wire was [...] Impression: 1. Uncomplicated exchange of left 8.5 Dutch by 24 cm nephroureteral catheter. 2. Uncomplicated exchange of right 10 Dutch percutaneous nephrostomy catheter. Signed: Star Brown MDReportVerified Date/Time: 12/14/2017 09:10:40 Reading Location: [facility] C013Y CT Body Reading Room Electronically signed by: STAR BROWN MD on 10/2018 09:10 AMANG, NEPHROSTOMY TUBE CHANGE, [id number] 09:10:00Reason for exam:->ABDOMINAL PAINFINAL REPORT Fluoroscopic guided bilateral nephrostomy tube exchange ClinicalHistory: Abdominal pain, bilateral percutaneous nephrostomy catheter. Modality: Sonography and fluoroscopy Database Management System Specialist: Star Brown MD. Insurance Job Titles: None.. SEDATION: None. Estimated Blood Loss: Less [...] catheter into the bladder. A new 8.5 Dutch by 24 cm nephroureteral catheter was placed. [...] catheter into the bladder. A new 10 Dutch pigtail catheter was placed. The wire was [...] Impression: 1. Uncomplicated exchange of left 8.5 Dutch by 24 cm nephroureteral catheter. 2. Uncomplicated exchange of right 10 Dutch percutaneous nephrostomy catheter. Signed: Star Brown MDReportVerified Date/Time: 12/14/2017 09:10:40 Reading Location: [facility] C013Y CT Body Reading Room Electronically signed by: STAR BROWN MD on 10/2018 09:10 [facility] W/PLT COUNT & AUTO [id number] 15:37:00 Test Item Value Reference Range Comments WHITE BLOOD CELL COUNT (BEAKER) (test eult=908) 11.1 K/ L 3.5-10.5 RED BLOOD CELL COUNT (BEAKER) (test ywzp=781) 3.52 M/ L 3.93-5.22 HEMOGLOBIN (BEAKER) (test iyyu=166) 11.2 GM/DL 11.2-15.7 HEMATOCRIT (BEAKER) (test tuyn=701) 35.3 % 34.1-44.9 MEAN CORPUSCULAR VOLUME (BEAKER) (test hqpd=445) 100.3 fL 79.4-94.8 MEAN CORPUSCULAR HEMOGLOBIN (BEAKER) (test 31.8 pg 25.6-32.2 ysfu=172) MEAN CORPUSCULAR HEMOGLOBIN CONC (BEAKER) (test 31.7 GM/DL 32.2-35.5 pwbx=151) RED CELL DISTRIBUTION WIDTH (BEAKER) (test 13.2 % 11.7-14.4 dima=843) PLATELET COUNT (BEAKER) (test pgud=693) 353 K/CU MM 150-450 MEAN PLATELET VOLUME (BEAKER) (test rufu=376) 10.6 fL 9.4-12.3 NUCLEATED RED BLOOD CELLS (BEAKER) (test 0 /100 WBC 0-0 bjjs=318) NEUTROPHILS RELATIVE PERCENT (BEAKER) (test 83 % aren=633) LYMPHOCYTES RELATIVE PERCENT (BEAKER) (test 8 % tzro=794) MONOCYTES RELATIVE PERCENT (BEAKER) (test 8 % oiou=337) EOSINOPHILS RELATIVE PERCENT (BEAKER) (test 1 % njxo=982) BASOPHILS RELATIVE PERCENT (BEAKER) (test 0 % mzwd=276) NEUTROPHILS ABSOLUTE COUNT (BEAKER) (test 9.20 K/ L 1.56-6.13 tuvw=301) LYMPHOCYTES ABSOLUTE COUNT (BEAKER) (test 0.87 K/ L 1.18-3.74 ujke=195) MONOCYTES ABSOLUTE COUNT (BEAKER) (test 0.91 K/ L 0.24-0.36 etaq=612) EOSINOPHILS ABSOLUTE COUNT (BEAKER) (test 0.07 K/ L 0.04-0.36 yzlc=619) BASOPHILS ABSOLUTE COUNT (BEAKER) (test 0.03 K/ L 0.01-0.08 nwfd=692) IMMATURE GRANULOCYTES-RELATIVE PERCENT (BEAKER) 1 % 0-1 (test wadz=4137) BASIC METABOLIC [id number] 15:27:00 Test Item Value Reference Range Comments SODIUM (BEAKER) (test 132 meq/L 136-145 wkdy=681) POTASSIUM (BEAKER) (test 5.1 meq/L 3.5-5.1 kyzt=264) CHLORIDE (BEAKER) (test 99 meq/L 98-107 dwfo=736) CO2 (BEAKER) (test 24 meq/L 22-29 tggh=304) BLOOD UREA NITROGEN 36 mg/dL 7-21 (BEAKER) (test kypq=966) CREATININE (BEAKER) (test 1.25 mg/dL 0.57-1.25 zaax=484) GLUCOSE RANDOM (BEAKER) 117 mg/dL 70-105 (test yrxp=384) CALCIUM (BEAKER) (test 9.4 mg/dL 8.4-10.2 zudk=850) EGFR (BEAKER) (test 42 mL/min/1.73 sq m ESTIMATED GFR IS NOT jpsf=3773) ACCURATE CREATININE CLEARANCE IN PREDICTING GLOMERULAR FILTRATION RATE. ESTIMATED GFR IS NOT APPLICABLE FOR DIALYSIS PATIENTS. URINALYSIS W/ [id number] 15:22:00 Test Item Value Reference Range Comments COLOR (BEAKER) (test fdct=122) Light Yellow CLARITY (BEAKER) (test csip=903) Hazy SPECIFIC GRAVITY UA (BEAKER) (test 1.007 1.001-1.035 nexo=740) PH UA (BEAKER) (test jdir=307) 5.5 5.0-8.0 PROTEIN UA (BEAKER) (test vsho=203) 50 mg/dL Negative GLUCOSE UA (BEAKER) (test dqvn=810) Negative Negative KETONES UA (BEAKER) (test lipb=459) Negative Negative BILIRUBIN UA (BEAKER) (test pszs=603) Negative Negative BLOOD UA (BEAKER) (test aruj=926) Small Negative NITRITE UA (BEAKER) (test gjjq=459) Positive Negative LEUKOCYTE ESTERASE UA (BEAKER) (test Large Negative zbyw=449) UROBILINOGEN UA (BEAKER) (test otli=294) 0.2 mg/dL 0.2-1.0 RBC UA (BEAKER) (test gclb=961) 22 /HPF WBC UA (BEAKER) (test rjoc=043) 24 /HPF MUCUS (BEAKER) (test acjr=8791) Rare SQUAMOUS EPITHELIAL (BEAKER) (test < /HPF awlc=854) HYALINE CASTS (BEAKER) (test kxgv=588) 2 /LPF SOURCE(BEAKER) (test nckg=4068) Urine, Nephrostomy ANG, NEPHROSTOMY TUBE CHANGE, [id number] 18:37:00Reason for Exam:-> N13.30FINAL REPORT Procedure: Replacement [...] guidewire and replaced with a fresh 8.5 Dutch device with its tip in the renal pelvis. Approximately 80 cc of urine were removed. The left nephroureteral stent was removed over guidewire and a fresh 8.5 Dutch by 24 cm nephroureteral stent placed with itstip in the bladder. Contrast was injected into each of the nephrostomy catheters confirming satisfactory positioning. CONCLUSION: Replacement of bilateral nephrostomy catheters. Signed: Tha Cheung MDReport Verified Date/Time: 11/19 18:37:20 Reading Location: [place] [address] Angio Body Reading Room ANG, NEPHROSTOMY TUBE CHANGE, [id number] 15:09:00Reason for exam:->FLANK PAINFINAL REPORT Exam: Right [...] tube was exchanged for a new 8.5 Dutch nephrostomy tube with the tip advanced to [...] nephrostomy tube exchange as described. Signed: Manju Groveort Verified Date/Time: 10/31/2017 15:09:40 Reading Location: [facility] P048 Angio Body Reading Room RAD, ABDOMEN, 2 OR MORE [id number] 14:41:00Reason for exam:->FLANK PAINFINAL REPORT Four views of the abdomen. IMPRESSION: None. IMPRESSION: Right nephrostomy and left nephroureterostomy catheters in position. Postsurgical changes are also seen in the lower lumbar spine and right hip. The bowel gas pattern is nonspecific. There are vascular calcifications. The osseous structures demonstrate degenerative change. No definite free intraperitoneal air. Signed: Haresh Scruggs MDRjosuéort Verified Date/ Time: 10/31/2017 14:41:15 Reading Location: [facility] [id number] Consult Reading Room BASIC METABOLIC [id number] 12:03:00 Test Item Value Reference Range Comments SODIUM (BEAKER) (test 139 meq/L 136-145 kmle=455) POTASSIUM (BEAKER) (test 4.8 meq/L 3.5-5.1 xawd=659) CHLORIDE (BEAKER) (test 106 meq/L 98-107 vqwx=072) CO2 (BEAKER) (test 22 meq/L 22-29 cegk=149) BLOOD UREA NITROGEN 34 mg/dL 7-21 (BEAKER) (test dzxa=788) CREATININE (BEAKER) (test 1.03 mg/dL 0.57-1.25 cndw=065) GLUCOSE RANDOM (BEAKER) 163 mg/dL 70-105 (test irpi=026) CALCIUM (BEAKER) (test 9.5 mg/dL 8.4-10.2 ixda=564) EGFR (BEAKER) (test 52 mL/min/1.73 sq m ESTIMATED GFR IS NOT cbez=6455) ACCURATE CREATININE CLEARANCE IN PREDICTING GLOMERULAR FILTRATION RATE. ESTIMATED GFR IS NOT APPLICABLE FOR DIALYSIS PATIENTS. CBC W/PLT COUNT & AUTO [id number] 11:30:00 Test Item Value Reference Range Comments WHITE BLOOD CELL COUNT (BEAKER) (test jddw=332) 9.1 K/ L 3.5-10.5 RED BLOOD CELL COUNT (BEAKER) (test aaac=030) 3.56 M/ L 3.93-5.22 HEMOGLOBIN (BEAKER) (test jhyu=344) 11.3 GM/DL 11.2-15.7 HEMATOCRIT (BEAKER) (test aard=056) 35.6 % 34.1-44.9 MEAN CORPUSCULAR VOLUME (BEAKER) (test gbsj=805) 100.0 fL 79.4-94.8 MEAN CORPUSCULAR HEMOGLOBIN (BEAKER) (test 31.7 pg 25.6-32.2 bkkc=954) MEAN CORPUSCULAR HEMOGLOBIN CONC (BEAKER) (test 31.7 GM/DL 32.2-35.5 cmwl=199) RED CELL DISTRIBUTION WIDTH (BEAKER) (test 14.3 % 11.7-14.4 hywb=763) PLATELET COUNT (BEAKER) (test fyhs=488) 323 K/CU MM 150-450 MEAN PLATELET VOLUME (BEAKER) (test hply=775) 10.1 fL 9.4-12.3 NUCLEATED RED BLOOD CELLS (BEAKER) (test 0 /100 WBC 0-0 ljcu=503) NEUTROPHILS RELATIVE PERCENT (BEAKER) (test 86 % aqkt=701) LYMPHOCYTES RELATIVE PERCENT (BEAKER) (test 9 % hmgf=739) MONOCYTES RELATIVE PERCENT (BEAKER) (test 5 % lewt=004) EOSINOPHILS RELATIVE PERCENT (BEAKER) (test 0 % ijha=746) BASOPHILS RELATIVE PERCENT (BEAKER) (test 0 % dmpy=801) NEUTROPHILS ABSOLUTE COUNT (BEAKER) (test 7.75 K/ L 1.56-6.13 bacp=535) LYMPHOCYTES ABSOLUTE COUNT (BEAKER) (test 0.78 K/ L 1.18-3.74 qxwd=165) MONOCYTES ABSOLUTE COUNT (BEAKER) (test 0.47 K/ L 0.24-0.36 tijw=155) EOSINOPHILS ABSOLUTE COUNT (BEAKER) (test 0.00 K/ L 0.04-0.36 zhjm=664) BASOPHILS ABSOLUTE COUNT (BEAKER) (test 0.02 K/ L 0.01-0.08 xpmt=900) IMMATURE GRANULOCYTES-RELATIVE PERCENT (BEAKER) 0 % 0-1 (test jrhd=7735) [id number] 11:17:00 Test Item Value Reference Range Comments PROTIME (BEAKER) (test pkji=851) 14.4 seconds 11.7-14.7 INR (BEAKER) (test sclk=359) 1.1 <=5.9 PARTIAL THROMBOPLASTIN TIME (BEAKER) (test 31.3 seconds 22.5-36.0 teza=372) RECOMMENDED COUMADIN/WARFARIN INR THERAPY RANGESSTANDARD DOSE: 2.0 - 3.0 Includes: PROPHYLAXIS forvenous thrombosis, systemic embolization; TREATMENT for venous thrombosis and/or pulmonary embolus.HIGH RISK: Target INR is 2.5-3.5 for patients with mechanical heart valves.BLOOD [id number] 11:00:00 Test Item Value Reference Range Comments CULTURE (BEAKER) (test aclw=8386) No growth in 5 days BLOOD [id number] 11:00:00 Test Item Value Reference Range Comments CULTURE (BEAKER) (test bsav=4533) No growth in 5 days URINE [id number] 10:04:00 Test Item Value Reference Range Comments CULTURE (BEAKER) (test nauu=0901) See comment >100,000 col/mL enteric organisms of >3 types including Pseudomonas species. No further workupperformed. Multiple organisms suggestive of colonization or contamination. Repeat collection recommended.URINE [id number] 13:38:00 Test Item Value Reference Range Comments CULTURE (BEAKER) (test rxno=7793) >100,000 col/mL skin thomas POCT-GLUCOSE [id number] 12:45:00 Test Item Value Reference Range Comments POC-GLUCOSE METER (BEAKER) 120 mg/dL 70-110 TESTED AT [place] [id number] [facility] (test gxrj=6921) [employer] [address] POCT-GLUCOSE [id number] 07:39:00 Test Item Value Reference Range Comments POC-GLUCOSE METER (BEAKER) 80 mg/dL 70-110 TESTED AT [address] (test oprn=7811) [employer] [address] CBC W/PLT COUNT & AUTO [id number] 06:22:00 Test Item Value Reference Range Comments WHITE BLOOD CELL COUNT (BEAKER) (test frwo=950) 12.7 K/ L 3.5-10.5 RED BLOOD CELL COUNT (BEAKER) (test ctbh=084) 3.13 M/ L 3.93-5.22 HEMOGLOBIN (BEAKER) (test kkqs=406) 10.0 GM/DL 11.2-15.7 HEMATOCRIT (BEAKER) (test tpzm=180) 31.2 % 34.1-44.9 MEAN CORPUSCULAR VOLUME (BEAKER) (test fqlj=856) 99.7 fL 79.4-94.8 MEAN CORPUSCULAR HEMOGLOBIN (BEAKER) (test 31.9 pg 25.6-32.2 jbtx=342) MEAN CORPUSCULAR HEMOGLOBIN CONC (BEAKER) (test 32.1 GM/DL 32.2-35.5 gfaa=173) RED CELL DISTRIBUTION WIDTH (BEAKER) (test 14.4 % 11.7-14.4 uint=294) PLATELET COUNT (BEAKER) (test ezkd=980) 239 K/CU MM 150-450 MEAN PLATELET VOLUME (BEAKER) (test wsaz=244) 10.5 fL 9.4-12.3 NUCLEATED RED BLOOD CELLS (BEAKER) (test 0 /100 WBC 0-0 efhw=374) NEUTROPHILS RELATIVE PERCENT (BEAKER) (test 81 % damj=345) LYMPHOCYTES RELATIVE PERCENT (BEAKER) (test 7 % ikzm=454) MONOCYTES RELATIVE PERCENT (BEAKER) (test 9 % knhm=001) EOSINOPHILS RELATIVE PERCENT (BEAKER) (test 1 % phit=713) BASOPHILS RELATIVE PERCENT (BEAKER) (test 0 % ague=668) NEUTROPHILS ABSOLUTE COUNT (BEAKER) (test 10.34 K/ L 1.56-6.13 nzop=999) LYMPHOCYTES ABSOLUTE COUNT (BEAKER) (test 0.94 K/ L 1.18-3.74 slrt=584) MONOCYTES ABSOLUTE COUNT (BEAKER) (test 1.18 K/ L 0.24-0.36 vwto=536) EOSINOPHILS ABSOLUTE COUNT (BEAKER) (test 0.11 K/ L 0.04-0.36 xmlk=935) BASOPHILS ABSOLUTE COUNT (BEAKER) (test 0.03 K/ L 0.01-0.08 qbzd=664) IMMATURE GRANULOCYTES-RELATIVE PERCENT (BEAKER) 1 % 0-1 (test musx=7089) [id number] 05:46:00 Test Item Value Reference Range Comments MAGNESIUM (BEAKER) (test oiki=807) 1.4 mg/dL 1.6-2.6 BASIC METABOLIC [id number] 05:46:00 Test Item Value Reference Range Comments SODIUM (BEAKER) (test 135 meq/L 136-145 ptob=935) POTASSIUM (BEAKER) (test 3.8 meq/L 3.5-5.1 tdgm=452) CHLORIDE (BEAKER) (test 104 meq/L 98-107 cykb=843) CO2 (BEAKER) (test 24 meq/L 22-29 hffg=268) BLOOD UREA NITROGEN 29 mg/dL 7-21 (BEAKER) (test llgv=387) CREATININE (BEAKER) (test 1.00 mg/dL 0.57-1.25 dqmq=662) GLUCOSE RANDOM (BEAKER) 94 mg/dL 70-105 (test zjzv=057) CALCIUM (BEAKER) (test 8.4 mg/dL 8.4-10.2 arsh=491) EGFR (BEAKER) (test 54 mL/min/1.73 sq m ESTIMATED GFR IS NOT znjo=2481) ACCURATE CREATININE CLEARANCE IN PREDICTING GLOMERULAR FILTRATION RATE. ESTIMATED GFR IS NOT APPLICABLE FOR DIALYSIS PATIENTS. POCT-GLUCOSE [id number] 21:07:00 Test Item Value Reference Range Comments POC-GLUCOSE METER (BEAKER) 170 mg/dL 70-110 TESTED AT [facility] [address] (test qhzp=8636) [employer] [address] ANG, NEPHROSTOMY TUBE CHANGE, [id number] 20:09:00FINAL REPORT Right nephrostomy catheter exchange. History: [...] the patient's medical record by the nurse. Database Management System Specialist: Gerald Baeza MD. Insurance Job Titles: MD [employer] ( Fellow) Approach: Indwelling right [...] 2% lidocaine was used for local anesthesia. Printing Roller Polisher images were obtained demonstrating right nephrostomy catheter retracted to a renal calyx. The indwelling tube was cut and a 0.035 wire was advanced into the right renal pelvis. The existing catheter was removed over wire and a new 8.5 Dutch percutaneous nephrostomy catheter was advanced over wire with pigtail formed within the renal pelvis. There was immediate return of urine. Contrast injection confirmed position. The catheter was fixed tothe skin with silk suture. A sterile dressing was applied. The patient tolerated procedure well without immediate complication. IMPRESSION: Successful right percutaneous nephrostomy catheter exchange. Signed: Gerald Baeza MDReport Verified Date/Time: 08/06/2017 20:09:03 Reading Location: [place] [address] Angio Body Reading Room Electronically signed by: GERALD BAEZA MD on 2016 08:09 PMURINALYSIS W/ [id number] 19:55:00 Test Item Value Reference Range Comments COLOR (BEAKER) (test bgfn=321) Brittaney CLARITY (BEAKER) (test caiy=573) Cloudy SPECIFIC GRAVITY UA (BEAKER) (test 1.016 1.001-1.035 zmgg=528) PH UA (BEAKER) (test mrqc=940) 8.0 5.0-8.0 PROTEIN UA (BEAKER) (test qxse=710) 300 mg/dL Negative GLUCOSE UA (BEAKER) (test xhbu=905) Negative Negative KETONES UA (BEAKER) (test wphj=889) Negative Negative BILIRUBIN UA (BEAKER) (test ovdl=083) Negative Negative BLOOD UA (BEAKER) (test mbtc=429) Large Negative NITRITE UA (BEAKER) (test dpsc=206) Negative Negative LEUKOCYTE ESTERASE UA (BEAKER) (test Large Negative lfgb=320) UROBILINOGEN UA (BEAKER) (test xvrh=171) 0.2 mg/dL 0.2-1.0 RBC UA (BEAKER) (test pkwy=031) > /HPF WBC UA (BEAKER) (test vkre=651) > /HPF MUCUS (BEAKER) (test pvsq=1280) Rare SOURCE(BEAKER) (test btou=3176) Urine, Nephrostomy POCT-GLUCOSE [id number] 12:58:00 Test Item Value Reference Range Comments POC-GLUCOSE METER (BEAKER) 131 mg/dL 70-110 TESTED AT [address] (test ponl=0323) [place] [id number] HEMOGLOBIN [id number] 09:30:00 Test Item Value Reference Range Comments HEMOGLOBIN A1C (BEAKER) (test lwpr=761) 5.7 % 4.3-6.1 POCT-GLUCOSE [id number] 07:08:00 Test Item Value Reference Range Comments POC-GLUCOSE METER (BEAKER) 137 mg/dL 70-110 TESTED AT [address] (test hkix=5107) [employer] [address] [id number] 04:00:00 Test Item Value Reference Range Comments PROTIME (BEAKER) (test dken=060) 13.4 seconds 11.7-14.7 INR (BEAKER) (test zjba=683) 1.0 <=5.9 PARTIAL THROMBOPLASTIN TIME (BEAKER) (test 30.1 seconds 22.5-36.0 kpqi=816) RECOMMENDED COUMADIN/WARFARIN INR THERAPY RANGESSTANDARD DOSE: 2.0 - 3.0 Includes: PROPHYLAXIS forvenous thrombosis, systemic embolization; TREATMENT for venous thrombosis and/or pulmonary embolus.HIGH RISK: Target INR is 2.5-3.5 for patients with mechanical heart valves.U/S, RENAL, [id number] 03:58: 00Abdomen limited area? Add comment if [...] Verified Date/Time: 08/06/2017 03:58: 39 Reading Location: [address] Consult Reading Room URINALYSIS W / [id number] 01:01:00 Test Item Value Reference Range Comments COLOR (BEAKER) (test vsxk=516) Light Yellow CLARITY (BEAKER) (test hrlf=424) Hazy SPECIFIC GRAVITY UA (BEAKER) (test bpzg=776) 1.011 1.001-1.035 PH UA (BEAKER) (test sfvc=335) 7.0 5.0-8.0 PROTEIN UA (BEAKER) (test oxdl=728) 200 mg/dL Negative GLUCOSE UA (BEAKER) (test fsgk=855) Negative Negative KETONES UA (BEAKER) (test vvay=605) Negative Negative BILIRUBIN UA (BEAKER) (test tvet=527) Negative Negative BLOOD UA (BEAKER) (test bzzd=975) Moderate Negative NITRITE UA (BEAKER) (test ofej=708) Negative Negative LEUKOCYTE ESTERASE UA (BEAKER) (test lvkg=464) Moderate Negative UROBILINOGEN UA (BEAKER) (test nhkn=742) 0.2 mg/dL 0.2-1.0 RBC UA (BEAKER) (test twpw=762) 22 /HPF WBC UA (BEAKER) (test xjgp=800) 26 /HPF BACTERIA (BEAKER) (test cxus=871) Occasional MUCUS (BEAKER) (test iacn=0464) Rare SQUAMOUS EPITHELIAL (BEAKER) (test uosw=004) < /HPF HYALINE CASTS (BEAKER) (test mstg=604) 6 /LPF TRIPLE PHOSPHATE CRYSTALS (BEAKER) (test Rare pykz=6481) AMORPHOUS CRYSTALS (BEAKER) (test ykfn=7504) Rare SOURCE(BEAKER) (test msjq=6759) Urine, Voided [id number] 23:21:00 Test Item Value Reference Range Comments LIPASE (BEAKER) (test ywfw=752) 31 U/L 8-78 [id number] 23:21:00 Test Item Value Reference Range Comments AMYLASE (BEAKER) (test gzdt=080) 71 U/L 25-125 BASIC METABOLIC [id number] 23:21:00 Test Item Value Reference Range Comments SODIUM (BEAKER) (test 139 meq/L 136-145 jzdi=660) POTASSIUM (BEAKER) (test 3.8 meq/L 3.5-5.1 tcud=102) CHLORIDE (BEAKER) (test 104 meq/L 98-107 uxgv=835) CO2 (BEAKER) (test 22 meq/L 22-29 qiim=883) BLOOD UREA NITROGEN 29 mg/dL 7-21 (BEAKER) (test mnbd=593) CREATININE (BEAKER) (test 1.01 mg/dL 0.57-1.25 mxfo=605) GLUCOSE RANDOM (BEAKER) 104 mg/dL 70-105 (test hoce=320) CALCIUM (BEAKER) (test 9.2 mg/dL 8.4-10.2 ievm=682) EGFR (BEAKER) (test 54 mL/min/1.73 sq m ESTIMATED GFR IS NOT yoxd=0201) ACCURATE CREATININE CLEARANCE IN PREDICTING GLOMERULAR FILTRATION RATE. ESTIMATED GFR IS NOT APPLICABLE FOR DIALYSIS PATIENTS. HEPATIC FUNCTION [id number] 23:21:00 Test Item Value Reference Range Comments TOTAL PROTEIN (BEAKER) (test leck=823) 7.3 gm/dL 6.0-8.3 ALBUMIN (BEAKER) (test kfpf=7805) 3.5 g/dL 3.5-5.0 BILIRUBIN TOTAL (BEAKER) (test aiqq=062) < mg/dL 0.2-1.2 BILIRUBIN DIRECT (BEAKER) (test hsno=699) 0.1 mg/dL 0.1-0.5 ALKALINE PHOSPHATASE (BEAKER) (test nmkf=304) 92 U/L 40-150 AST (SGOT) (BEAKER) (test slrm=384) 17 U/L 5-34 ALT (SGPT) (BEAKER) (test lalm=368) 12 U/L 6-55 CBC W/PLT COUNT & AUTO [id number] 23:15:00 Test Item Value Reference Range Comments WHITE BLOOD CELL COUNT (BEAKER) (test hebg=146) 13.0 K/ L 3.5-10.5 RED BLOOD CELL COUNT (BEAKER) (test lmbv=437) 3.64 M/ L 3.93-5.22 HEMOGLOBIN (BEAKER) (test lwie=742) 11.6 GM/DL 11.2-15.7 HEMATOCRIT (BEAKER) (test utlv=809) 36.0 % 34.1-44.9 MEAN CORPUSCULAR VOLUME (BEAKER) (test aqmd=430) 98.9 fL 79.4-94.8 MEAN CORPUSCULAR HEMOGLOBIN (BEAKER) (test 31.9 pg 25.6-32.2 sydj=237) MEAN CORPUSCULAR HEMOGLOBIN CONC (BEAKER) (test 32.2 GM/DL 32.2-35.5 jnze=869) RED CELL DISTRIBUTION WIDTH (BEAKER) (test 13.7 % 11.7-14.4 bkjr=939) PLATELET COUNT (BEAKER) (test vtpi=054) 284 K/CU MM 150-450 MEAN PLATELET VOLUME (BEAKER) (test ldqr=528) 9.7 fL 9.4-12.3 NUCLEATED RED BLOOD CELLS (BEAKER) (test 0 /100 WBC 0-0 jidf=559) NEUTROPHILS RELATIVE PERCENT (BEAKER) (test 80 % fbjb=319) LYMPHOCYTES RELATIVE PERCENT (BEAKER) (test 10 % owwc=349) MONOCYTES RELATIVE PERCENT (BEAKER) (test 7 % egbk=261) EOSINOPHILS RELATIVE PERCENT (BEAKER) (test 2 % mcjd=219) BASOPHILS RELATIVE PERCENT (BEAKER) (test 0 % zwra=409) NEUTROPHILS ABSOLUTE COUNT (BEAKER) (test 10.38 K/ L 1.56-6.13 xelq=373) LYMPHOCYTES ABSOLUTE COUNT (BEAKER) (test 1.27 K/ L 1.18-3.74 lwjl=029) MONOCYTES ABSOLUTE COUNT (BEAKER) (test 0.95 K/ L 0.24-0.36 xfhf=697) EOSINOPHILS ABSOLUTE COUNT (BEAKER) (test 0.26 K/ L 0.04-0.36 xxtl=237) BASOPHILS ABSOLUTE COUNT (BEAKER) (test 0.05 K/ L 0.01-0.08 jige=076) IMMATURE GRANULOCYTES-RELATIVE PERCENT (BEAKER) 0 % 0-1 (test ekkq=7831) ANG, NEPHROSTOMY TUBE CHANGE, [id number] 11:25:00Reason for exam:->BACK PAINReason for exam:->FINAL REPORT Exchange of right percutaneous nephrostomy tube and left percutaneous nephroureteral stent. History: Back pain. Patient presented to the emergency department with a decreased drainage from the right nephrostomy catheter. Modality: Fluoroscopy Sedation: None Database Management System Specialist: Star Georges MD. Insurance Job Titles: None. Approach: ] Is approximately catheter and [...] exchanged over guidewire for a new 8.5 Dutch nephrostomy catheter. After the new catheter was placed contrast was injected which confirmed proper positioning. The catheter isin superior the patient's skin with 2-0 silk and connected to gravity drainage bag. The left nephroureteral stent was then exchanged over guidewire for a new 8.5 Dutch by 22 cm nephroureteral stent. The distal [...] Verified Date/Time: 07/08/2017 11:25: 07 Reading Location: [place] [address] Angio Body Reading Room URINALYSIS W/ [id number] 09:16:00 Test Item Value Reference Range Comments COLOR (BEAKER) (test tzai=173) Yellow CLARITY (BEAKER) (test sqqo=003) Hazy SPECIFIC GRAVITY UA (BEAKER) (test 1.018 1.001-1.035 lrur=323) PH UA (BEAKER) (test rcjs=943) 7.5 5.0-8.0 PROTEIN UA (BEAKER) (test zzga=811) 300 mg/dL Negative GLUCOSE UA (BEAKER) (test oyjz=864) Negative Negative KETONES UA (BEAKER) (test wlwo=554) Negative Negative BILIRUBIN UA (BEAKER) (test cabg=753) Negative Negative BLOOD UA (BEAKER) (test nybc=858) Small Negative NITRITE UA (BEAKER) (test ijzm=318) Negative Negative LEUKOCYTE ESTERASE UA (BEAKER) (test Moderate Negative nmqe=702) UROBILINOGEN UA (BEAKER) (test nbjv=776) 0.2 mg/dL 0.2-1.0 RBC UA (BEAKER) (test gjvc=087) > /HPF WBC UA (BEAKER) (test gowq=857) > /HPF SQUAMOUS EPITHELIAL (BEAKER) (test 1 /HPF rjlx=288) SOURCE(BEAKER) (test ueni=5834) Urine, Nephrostomy CBC W/PLT COUNT & AUTO [id number] 08:56:00 Test Item Value Reference Range Comments WHITE BLOOD CELL COUNT (BEAKER) (test uzxc=920) 10.2 K/ L 3.5-10.5 RED BLOOD CELL COUNT (BEAKER) (test twek=624) 3.40 M/ L 3.93-5.22 HEMOGLOBIN (BEAKER) (test qhff=691) 10.9 GM/DL 11.2-15.7 HEMATOCRIT (BEAKER) (test hcra=924) 33.7 % 34.1-44.9 MEAN CORPUSCULAR VOLUME (BEAKER) (test kyfh=334) 99.1 fL 79.4-94.8 MEAN CORPUSCULAR HEMOGLOBIN (BEAKER) (test 32.1 pg 25.6-32.2 pilc=581) MEAN CORPUSCULAR HEMOGLOBIN CONC (BEAKER) (test 32.3 GM/DL 32.2-35.5 nste=730) RED CELL DISTRIBUTION WIDTH (BEAKER) (test 15.2 % 11.7-14.4 ligh=354) PLATELET COUNT (BEAKER) (test mohe=571) 317 K/CU MM 150-450 MEAN PLATELET VOLUME (BEAKER) (test scvp=859) 9.8 fL 9.4-12.3 NUCLEATED RED BLOOD CELLS (BEAKER) (test 0 /100 WBC 0-0 ndho=496) NEUTROPHILS RELATIVE PERCENT (BEAKER) (test 79 % ytrd=254) LYMPHOCYTES RELATIVE PERCENT (BEAKER) (test 10 % zvmm=157) MONOCYTES RELATIVE PERCENT (BEAKER) (test 9 % xktr=317) EOSINOPHILS RELATIVE PERCENT (BEAKER) (test 2 % hveu=825) BASOPHILS RELATIVE PERCENT (BEAKER) (test 0 % efqg=246) NEUTROPHILS ABSOLUTE COUNT (BEAKER) (test 8.07 K/ L 1.56-6.13 jppc=281) LYMPHOCYTES ABSOLUTE COUNT (BEAKER) (test 1.06 K/ L 1.18-3.74 eqys=781) MONOCYTES ABSOLUTE COUNT (BEAKER) (test 0.88 K/ L 0.24-0.36 sjzn=021) EOSINOPHILS ABSOLUTE COUNT (BEAKER) (test 0.16 K/ L 0.04-0.36 dqhe=813) BASOPHILS ABSOLUTE COUNT (BEAKER) (test 0.02 K/ L 0.01-0.08 xplj=391) IMMATURE GRANULOCYTES-RELATIVE PERCENT (BEAKER) 1 % 0-1 (test whsn=5393) BASIC METABOLIC [id number] 08:48:00 Test Item Value Reference Range Comments SODIUM (BEAKER) (test 138 meq/L 136-145 ldhp=223) POTASSIUM (BEAKER) (test 4.6 meq/L 3.5-5.1 cddd=782) CHLORIDE (BEAKER) (test 104 meq/L 98-107 jayq=791) CO2 (BEAKER) (test 23 meq/L 22-29 uhof=843) BLOOD UREA NITROGEN 40 mg/dL 7-21 (BEAKER) (test iwfm=161) CREATININE (BEAKER) (test 1.03 mg/dL 0.57-1.25 xiai=149) GLUCOSE RANDOM (BEAKER) 140 mg/dL 70-105 (test cvhs=589) CALCIUM (BEAKER) (test 9.1 mg/dL 8.4-10.2 rtpf=719) EGFR (BEAKER) (test 52 mL/min/1.73 sq m ESTIMATED GFR IS NOT tcvx=1195) ACCURATE CREATININE CLEARANCE IN PREDICTING GLOMERULAR FILTRATION RATE. ESTIMATED GFR IS NOT APPLICABLE FOR DIALYSIS PATIENTS. URINE [id number] 08:09:00 Test Item Value Reference Range Comments CULTURE (BEAKER) (test STENOTROPHOMONAS >100,000 col/mL atqe=9840) MALTOPHILIA Stenotrophomonas maltophilia Amikacin (test code=1) Ampicillin (test code=26) Ampicillin + Sulbactam (test code=6) Aztreonam (test code=32) Cefazolin (test code=9) Cefepime (test code=51) Ceftazidime (test Susceptible 0-8 , code=27) Resistant <0 or >8 Ceftriaxone (test code=52) Ciprofloxacin (test code=7) Doripenem (test licz=117) Ertapenem (test code=38) Gentamicin (test code=18) Imipenem (test code=19) Levofloxacin (test Susceptible 0-2 , code=22) Resistant <0 or >2 Meropenem (test code=34) Minocycline (test Susceptible 0-4 , code=35) Resistant <0 or >4 Nitrofurantoin (test code=23) Piperacillin (test code=24) Piperacillin + Tazobactam (test code=29) Tetracycline (test code=2) Ticarcillin + Clavulanic Acid (test code=80) Tigecycline (test xcoc=983) Tobramycin (test code=25) Trimethoprim + Susceptible 0-40 Sulfamethoxazole (test , Resistant <0 or code=47) >40 CULTURE (BEAKER) (test COAGULASE NEGATIVE >100,000 col/mL vkdb=6301) STAPHYLOCOCCUS Coagulase negative Staphylococcus Ampicillin (test zqdk=265) Ciprofloxacin (test code=72) Clindamycin (test code=10) Daptomycin (test code=59) Erythromycin (test code=4) Gentamicin (test uoqr=362) Gentamicin High Level Synergy (test laaj=040) Levofloxacin (test code=22) Linezolid (test code=40) Moxifloxacin (test code=36) Nitrofurantoin (test code=23) Oxacillin (test code=14) Rifampin (test code=43) Streptomycin High Level Synergy (test acvm=839) Tetracycline (test code=2) Tigecycline (test htdd=4166) Trimethoprim + Sulfamethoxazole (test code=47) Vancomycin (test code=13) URINALYSIS W/ [id number] 10:28:00 Test Item Value Reference Range Comments COLOR (BEAKER) (test xejg=483) Yellow CLARITY (BEAKER) (test shxm=436) Clear SPECIFIC GRAVITY UA (BEAKER) (test 1.014 1.001-1.035 ldco=287) PH UA (BEAKER) (test hdbc=076) 6.0 5.0-8.0 PROTEIN UA (BEAKER) (test zvgn=794) 50 mg/dL Negative GLUCOSE UA (BEAKER) (test qzin=303) Negative Negative KETONES UA (BEAKER) (test xmsh=221) Negative Negative BILIRUBIN UA (BEAKER) (test vtmg=372) Negative Negative BLOOD UA (BEAKER) (test krnr=861) Trace Negative NITRITE UA (BEAKER) (test pany=311) Positive Negative LEUKOCYTE ESTERASE UA (BEAKER) (test Large Negative qbth=324) UROBILINOGEN UA (BEAKER) (test rdbu=923) 0.2 mg/dL 0.2-1.0 RBC UA (BEAKER) (test dfxw=842) 1 /HPF WBC UA (BEAKER) (test mumu=900) 15 /HPF BACTERIA (BEAKER) (test ecoh=823) Rare HYALINE CASTS (BEAKER) (test dgfg=436) 9 /LPF CRYSTALS, URINE (BEAKER) (test mtii=4901) Rare SOURCE(BEAKER) (test jhpq=9744) Urine, Nephrostomy BASIC METABOLIC [id number] 10:18:00 Test Item Value Reference Range Comments SODIUM (BEAKER) (test 136 meq/L 136-145 jjbg=228) POTASSIUM (BEAKER) (test 3.8 meq/L 3.5-5.1 toyd=032) CHLORIDE (BEAKER) (test 100 meq/L 98-107 rgcg=330) CO2 (BEAKER) (test 24 meq/L 22-29 uqdo=630) BLOOD UREA NITROGEN 26 mg/dL 7-21 (BEAKER) (test frtm=360) CREATININE (BEAKER) (test 0.89 mg/dL 0.57-1.25 vkbq=515) GLUCOSE RANDOM (BEAKER) 82 mg/dL 70-105 (test nptw=371) CALCIUM (BEAKER) (test 9.3 mg/dL 8.4-10.2 kpna=579) EGFR (BEAKER) (test 62 mL/min/1.73 sq m ESTIMATED GFR IS NOT bzml=6647) ACCURATE CREATININE CLEARANCE IN PREDICTING GLOMERULAR FILTRATION RATE. ESTIMATED GFR IS NOT APPLICABLE FOR DIALYSIS PATIENTS. CBC W/PLT COUNT & AUTO [id number] 10:12:00 Test Item Value Reference Range Comments WHITE BLOOD CELL COUNT (BEAKER) (test rzuv=588) 9.6 K/ L 4.0-10.0 RED BLOOD CELL COUNT (BEAKER) (test weqq=777) 3.48 M/ L 4.00-5.00 HEMOGLOBIN (BEAKER) (test qpva=957) 10.4 GM/DL 12.0-15.0 HEMATOCRIT (BEAKER) (test cdvt=269) 33.0 % 36.0-45.0 MEAN CORPUSCULAR VOLUME (BEAKER) (test dmtc=816) 94.8 fL 82.0-99.0 MEAN CORPUSCULAR HEMOGLOBIN (BEAKER) (test 29.9 pg 27.0-33.0 rjvm=598) MEAN CORPUSCULAR HEMOGLOBIN CONC (BEAKER) (test 31.5 GM/DL 32.0-36.0 ftss=325) RED CELL DISTRIBUTION WIDTH (BEAKER) (test 15.7 % 10.3-14.2 iijj=034) PLATELET COUNT (BEAKER) (test zrie=604) 548 K/CU MM 150-430 MEAN PLATELET VOLUME (BEAKER) (test hnct=247) 6.2 fL 6.5-10.5 NUCLEATED RED BLOOD CELLS (BEAKER) (test 0 /100 WBC 0-0 vfwg=276) NEUTROPHILS RELATIVE PERCENT (BEAKER) (test 70 % gdum=982) LYMPHOCYTES RELATIVE PERCENT (BEAKER) (test 17 % rdix=562) MONOCYTES RELATIVE PERCENT (BEAKER) (test 12 % upvx=484) EOSINOPHILS RELATIVE PERCENT (BEAKER) (test 2 % jjvg=193) BASOPHILS RELATIVE PERCENT (BEAKER) (test 1 % vfxh=255) NEUTROPHILS ABSOLUTE COUNT (BEAKER) (test 6.65 K/ L 1.80-8.00 enzz=858) LYMPHOCYTES ABSOLUTE COUNT (BEAKER) (test 1.58 K/ L 1.48-4.50 crea=883) MONOCYTES ABSOLUTE COUNT (BEAKER) (test 1.11 K/ L 0.00-1.30 ypxf=190) EOSINOPHILS ABSOLUTE COUNT (BEAKER) (test 0.17 K/ L 0.00-0.50 xzbh=001) BASOPHILS ABSOLUTE COUNT (BEAKER) (test 0.06 K/ L 0.00-0.20 kvjp=450) 0.00PT/[id number] 10:12:00 Test Item Value Reference Range Comments PROTIME (BEAKER) (test cqqk=950) 13.4 seconds 11.7-14.7 INR (BEAKER) (test jeba=480) 1.0 <=5.9 PARTIAL THROMBOPLASTIN TIME (BEAKER) (test 36.3 seconds 22.5-36.0 jzsi=703) RECOMMENDED COUMADIN/WARFARIN INR THERAPY RANGESSTANDARD DOSE: 2.0 - 3.0 Includes: PROPHYLAXIS forvenous thrombosis, systemic embolization; TREATMENT for venous thrombosis and/or pulmonary embolus.HIGH RISK: Target INR is 2.5-3.5 for patients with mechanical heart valves.POCT-GLUCOSE [id number] 13:22:00 Test Item Value Reference Range Comments POC-GLUCOSE METER (BEAKER) 136 mg/dL 70-110 TESTED AT [address] (test hxar=5169) [place] [address] POCT-GLUCOSE [id number] 07:56:00 Test Item Value Reference Range Comments POC-GLUCOSE METER (BEAKER) 185 mg/dL 70-110 TESTED AT [address] (test mtgr=4895) [place] [address] HEMOGLOBIN AND [id number] 06:36:00 Test Item Value Reference Range Comments HEMOGLOBIN (BEAKER) (test dxwv=050) 9.1 GM/DL 12.0-15.0 HEMATOCRIT (BEAKER) (test swbn=352) 29.3 % 36.0-45.0 BASIC METABOLIC [id number] 06:21:00 Test Item Value Reference Range Comments SODIUM (BEAKER) (test 142 meq/L 136-145 atxb=203) POTASSIUM (BEAKER) (test 3.8 meq/L 3.5-5.1 hpaq=563) CHLORIDE (BEAKER) (test 108 meq/L 98-107 rvis=688) CO2 (BEAKER) (test 22 meq/L 22-29 bajn=550) BLOOD UREA NITROGEN 30 mg/dL 7-21 (BEAKER) (test swmq=879) CREATININE (BEAKER) (test 1.44 mg/dL 0.57-1.25 vwsk=202) GLUCOSE RANDOM (BEAKER) 133 mg/dL 70-105 (test mylb=401) CALCIUM (BEAKER) (test 8.3 mg/dL 8.4-10.2 chsa=665) EGFR (BEAKER) (test 36 mL/min/1.73 sq m ESTIMATED GFR IS NOT jtst=9338) ACCURATE CREATININE CLEARANCE IN PREDICTING GLOMERULAR FILTRATION RATE. ESTIMATED GFR IS NOT APPLICABLE FOR DIALYSIS PATIENTS. [id number] 06:05:00 Test Item Value Reference Range Comments PROTIME (BEAKER) (test azjg=435) 15.8 seconds 11.7-14.7 INR (BEAKER) (test eavg=643) 1.3 <=5.9 PARTIAL THROMBOPLASTIN TIME (BEAKER) (test 39.7 seconds 22.5-36.0 vorz=097) RECOMMENDED COUMADIN/WARFARIN INR THERAPY RANGESSTANDARD DOSE: 2.0 - 3.0 Includes: PROPHYLAXIS forvenous thrombosis, systemic embolization; TREATMENT for venous thrombosis and/or pulmonary embolus.HIGH RISK: Target INR is 2.5-3.5 for patients with mechanical heart valves.POCT-GLUCOSE [id number] 20:59:00 Test Item Value Reference Range Comments POC-GLUCOSE METER (BEAKER) 139 mg/dL 70-110 TESTED AT [address] (test szom=9852) [place] [id number] POCT-GLUCOSE [id number] 17:25:00 Test Item Value Reference Range Comments POC-GLUCOSE METER (BEAKER) 213 mg/dL 70-110 TESTED AT [address] (test yhor=4734) [employer] [address] BASIC METABOLIC [id number] 15:09:00 Test Item Value Reference Range Comments SODIUM (BEAKER) (test 140 meq/L 136-145 tsvp=399) POTASSIUM (BEAKER) (test 3.8 meq/L 3.5-5.1 hfmw=773) CHLORIDE (BEAKER) (test 106 meq/L 98-107 pydn=082) CO2 (BEAKER) (test 24 meq/L 22-29 gdyd=228) BLOOD UREA NITROGEN 35 mg/dL 7-21 (BEAKER) (test fvyt=506) CREATININE (BEAKER) (test 1.64 mg/dL 0.57-1.25 umzc=597) GLUCOSE RANDOM (BEAKER) 181 mg/dL 70-105 (test xtgf=361) CALCIUM (BEAKER) (test 8.2 mg/dL 8.4-10.2 jkan=105) EGFR (BEAKER) (test 31 mL/min/1.73 sq m ESTIMATED GFR IS NOT xjcd=2304) ACCURATE CREATININE CLEARANCE IN PREDICTING GLOMERULAR FILTRATION RATE. ESTIMATED GFR IS NOT APPLICABLE FOR DIALYSIS PATIENTS. PROTHROMBIN [id number] 14:53:00 Test Item Value Reference Range Comments PROTIME (BEAKER) (test bybl=338) 15.6 seconds 11.7-14.7 INR (BEAKER) (test gupg=634) 1.3 <=5.9 RECOMMENDED COUMADIN/WARFARIN INR THERAPY RANGESSTANDARD DOSE: 2.0 - 3.0 Includes: PROPHYLAXIS forvenous thrombosis, systemic embolization; TREATMENT for venous thrombosis and/or pulmonary embolus.HIGH RISK: Target INR is 2.5-3.5 for patients with mechanical heart valves.HEMOGLOBIN AND [id number] 14 :50:00 Test Item Value Reference Range Comments HEMOGLOBIN (BEAKER) (test bdth=687) 10.4 GM/DL 12.0-15.0 HEMATOCRIT (BEAKER) (test talq=218) 32.6 % 36.0-45.0 CBC W/PLT COUNT & AUTO [id number] 12:10:00 Test Item Value Reference Range Comments WHITE BLOOD CELL COUNT (BEAKER) (test mhhu=425) 11.7 K/ L 4.0-10.0 RED BLOOD CELL COUNT (BEAKER) (test bohz=644) 3.31 M/ L 4.00-5.00 HEMOGLOBIN (BEAKER) (test xcsm=407) 9.9 GM/DL 12.0-15.0 HEMATOCRIT (BEAKER) (test aljs=100) 31.3 % 36.0-45.0 MEAN CORPUSCULAR VOLUME (BEAKER) (test iutb=782) 94.5 fL 82.0-99.0 MEAN CORPUSCULAR HEMOGLOBIN (BEAKER) (test 30.0 pg 27.0-33.0 yifm=189) MEAN CORPUSCULAR HEMOGLOBIN CONC (BEAKER) (test 31.7 GM/DL 32.0-36.0 rxau=297) RED CELL DISTRIBUTION WIDTH (BEAKER) (test 14.6 % 10.3-14.2 yqhd=955) PLATELET COUNT (BEAKER) (test cceo=884) 393 K/CU MM 150-430 MEAN PLATELET VOLUME (BEAKER) (test fafj=629) 7.4 fL 6.5-10.5 NUCLEATED RED BLOOD CELLS (BEAKER) (test 0 /100 WBC 0-0 hora=925) NEUTROPHILS RELATIVE PERCENT (BEAKER) (test 76 % ogqf=515) LYMPHOCYTES RELATIVE PERCENT (BEAKER) (test 11 % tzpj=627) MONOCYTES RELATIVE PERCENT (BEAKER) (test 12 % wpje=588) EOSINOPHILS RELATIVE PERCENT (BEAKER) (test 2 % swzv=842) BASOPHILS RELATIVE PERCENT (BEAKER) (test 0 % jwlq=243) NEUTROPHILS ABSOLUTE COUNT (BEAKER) (test 8.83 K/ L 1.80-8.00 oatn=094) LYMPHOCYTES ABSOLUTE COUNT (BEAKER) (test 1.23 K/ L 1.48-4.50 fzvv=205) MONOCYTES ABSOLUTE COUNT (BEAKER) (test 1.42 K/ L 0.00-1.30 izas=610) EOSINOPHILS ABSOLUTE COUNT (BEAKER) (test 0.19 K/ L 0.00-0.50 nomn=193) BASOPHILS ABSOLUTE COUNT (BEAKER) (test 0.00 K/ L 0.00-0.20 fobh=649) [id number] 11:59:00 Test Item Value Reference Range Comments SODIUM (BEAKER) (test qhds=886) 141 meq/L 136-145 POTASSIUM (BEAKER) (test rtvk=051) 3.7 meq/L 3.5-5.1 CHLORIDE (BEAKER) (test dkfd=707) 107 meq/L 98-107 CO2 (BEAKER) (test ihmg=710) 24 meq/L 22-29 BUN AND [id number] 11:53:00 Test Item Value Reference Range Comments BLOOD UREA NITROGEN 38 mg/dL 7-21 (BEAKER) (test snqa=579) CREATININE (BEAKER) (test 1.61 mg/dL 0.57-1.25 qixx=369) EGFR (BEAKER) (test 31 mL/min/1.73 sq m ESTIMATED GFR IS NOT psnm=3647) ACCURATE CREATININE CLEARANCE IN PREDICTING GLOMERULAR FILTRATION RATE. ESTIMATED GFR IS NOT APPLICABLE FOR DIALYSIS PATIENTS. POCT-GLUCOSE [id number] 10:51:00 Test Item Value Reference Range Comments POC-GLUCOSE METER (BEAKER) 52 mg/dL 70-110 Notified TASHA GRECO/TESTED AT [facility] (test bmpt=0225) [address] [employer] [address]
[2019-12-24] MEDS ORDERED: ONDANSETRON 4 MG/2 ML VIAL ONE ×2 (16:40→18:34)
[2019-12-24] MEDS ORDERED: FENTANYL CITR 100 MCG/2 ML ONE ×2 (16:40→18:30)
--- NOTE | 2019-12-24 18:00 | RAD REPORT ---
EXAM DESCRIPTION: RAD - Hip Right 2 View - 12/24/2019 5:01 pm CLINICAL HISTORY: possible dislocation, hip pain COMPARISON: No comparisons FINDINGS: AP and frog-leg views of the right hip were obtained. AP projection shows dislocation of the left femoral prosthesis from the acetabular component. On the lateral/ frog-leg view femoral head is superimposed on the acetabulum. This is probably self reductio n of the component when position for the frog-leg view. No loosening of the femoral component. No fra cture of the proximal femur. No acute bony pelvis finding. IMPRESSION: Dislocation of the right femoral hip component from the acetabular component. On the frog-leg view the femoral head is superimposed on the acetabular component which may indicate self reduction with maneuvering for the frog-leg image. No acute bone finding.
[2019-12-24] MEDS ORDERED: propofoL 200 MG/20 ML VIAL IV ONE (18:31)
[2019-12-24] MEDS ORDERED: NA CHLORIDE 0.9% 2,000 ML ONE (18:34)
--- NOTE | 2019-12-24 20:05 | ER ---
Nurse's Notes [facility] Name: Mary Archuleta Age: 79 yrs Sex: Female : 1940 Arrival Date: 12/24/2019 Time: 15:45 Bed 24 Private MD: Diagnosis: Posterior dislocation of right hip Presentation: 12/24 15:46 Presenting complaint: Patient states: "I BENT OVER AND FELT MY HIP POP OUT, I WAS ABLE vc TO STAND UP AND IT POPPED AGAIN. WHEN I SAT IN MY CHAIR IT FELT LIKE IT POPPED OUT AGAIN. LONG I AM BEING STILL IT DOESN'T HURT THAT MUCH.". Transition of care: patient was not received from another setting of care. Onset of symptoms was December 24, 2019. Risk Assessment: Do you want to hurt yourself or someone else? Patient reports no desire to harm self or others. Initial Sepsis Screen: Does the patient meet any 2 criteria? No. Patient's initial sepsis screen is negative. Does the patient have a suspected source of infection? No. Patient's initial sepsis screen is negative. Care prior to arrival: None. 15:46 Method Of Arrival: EMS: [facility] vc 15:46 Acuity: SILVERIO 3 vc Triage Assessment: 16:06 General: Appears in no apparent distress. comfortable, Behavior is calm, cooperative, vc appropriate for age. Pain: Complains of pain in right leg and right hip. Historical: - Allergies: 16:04 Lisinopril; vc - Home Meds: 16:04 Eliquis Oral [Active]; metoprolol succinate Oral [Active]; pravastatin 20 mg Oral tab 1 vc tab once daily [Active]; torsemide Oral [Active]; omeprazole 40 mg Oral cpDR 1 cap once daily [Active]; Hydrocodone-Acetaminophen Oral [Active]; Potassium Chloride Oral [Active]; - PMHx: 16:04 Atrial Fib; BREAST CA; cervical cancer; Depression; Diabetes - NIDDM; Hyperlipidemia; vc Hypertension; Hypothyroidism; lymphedema; peptic ulcers; - PSHx: 16:04 RIGHT HIP REPLACEMENT; RIGHT KNEE REPLACEMENT; vc - Immunization history:: Adult Immunizations up to date. - Coronavirus screen:: The patient has NOT traveled to [place] in the past 14 days. - Social history:: Smoking status: Patient denies any tobacco usage or history of. - Ebola Screening: : No symptoms or risks identified at this time. Screenin:06 Abuse screen: Denies threats or abuse. Nutritional screening: No deficits noted. vc Tuberculosis screening: No symptoms or risk factors identified. Fall Risk None identified. Assessment: 17:00 General: Appears in no apparent distress. uncomfortable, Behavior is calm, cooperative, vc appropriate for age. Pain: Complains of pain in right hip Pain does not radiate. Pain currently is 2 out of 10 on a pain scale. at worst was 8 out of 10 on a pain scale. 17:00 Neuro: Level of Consciousness is awake, alert, obeys commands, Oriented to person, vc place, time, situation. Cardiovascular: Capillary refill < 3 seconds Patient's skin is warm and dry. Respiratory: Respiratory effort is even, unlabored. GI: No signs and/or symptoms were reported involving the gastrointestinal system. : No signs and/or symptoms were reported regarding the genitourinary system. EENT: No signs and/or symptoms were reported regarding the EENT system. Derm: Skin temperature is warm. Musculoskeletal: Circulation, motion, and sensation intact. Range of motion: intact in all extremities. 18:00 Reassessment: Patient and/or family updated on plan of care and expected duration. Pain vc level reassessed. Patient is alert, oriented x 3, equal unlabored respirations, skin warm/dry/pink. 18:30 Reassessment: pt has been consented for moderate sedation and reduction of right hip, iw pt set up for sedation, suction set up. 18:39 Reassessment: PLEASE SEE CONSCIOUS SEDATION FLOW SHEET FOR FURTHER DETAILS IN REGARDS vc TO MEDICATION ADMIN AND VITALS DURING SEDATION. 19:00 Reassessment: Patient and/or family updated on plan of care and expected duration. Pain vc level reassessed. Patient is alert, oriented x 3, equal unlabored respirations, skin warm/dry/pink. 20:00 Reassessment: Patient and/or family updated on plan of care and expected duration. Pain vc level reassessed. Patient is alert, oriented x 3, equal unlabored respirations, skin warm/dry/pink. Patient states feeling better. 21:00 Reassessment: Patient and/or family updated on plan of care and expected duration. Pain vc level reassessed. Patient is alert, oriented x 3, equal unlabored respirations, skin warm/dry/pink. Patient denies pain at this time. Patient states feeling better. Patient states symptoms have improved. Vital Signs: 15:48 BP 122 / 80; Pulse 70; Resp 17; Temp 97.9(T); Pulse Ox 95% on R/A; Weight 58.97 kg; vc Height 5 ft. 1 in. (154.94 cm); Pain 2/10; 17:00 BP 124 / 82; Pulse 72; Resp 15; Pulse Ox 96% on R/A; vc 18:28 BP 119 / 63; Pulse 76; Resp 17; Pulse Ox 100% on 2 lpm NC; lt1 19:00 BP 104 / 68; Pulse 81; Resp 20; Pulse Ox 100% on 2 lpm NC; vc 20:00 BP 110 / 72; Pulse 73; Resp 18; Pulse Ox 100% on 2 lpm NC; vc 21:00 BP 118 / 78; Pulse 76; Resp 18; Pulse Ox 100% on R/A; vc 15:48 Body Mass Index 24.56 (58.97 kg, 154.94 cm) vc ED Course: 15:45 Patient arrived in ED. vc 15:48 Triage completed. vc 15:50 Phoenix Rankin NP is PHCP. pm1 15:50 Tejas Matamoros MD is Attending Physician. pm1 16:07 Arm band placed on. vc 16:07 Patient has correct armband on for positive identification. vc 16:09 Iliana Cifuentes, RN is Primary Nurse. vc 16:45 Missed attempt(s): 22 gauge in right antecubital area. lt1 16:45 Inserted saline lock: 22 gauge in left antecubital area, using aseptic technique. lt1 17:00 Hip Right 2 View XRAY Sent. vc 18:39 Assist provider with reduction of right pathologic or non traumatic hip using vc manipulation, Set up for procedure. Performed by Phoenix Rankin NP. Assist provider with reduction Performed by Tejas Matamoros MD Patient tolerated well. 19:30 Hip Right 1 View XRAY Sent. vc 21:15 Assist provider with reduction. IV discontinued, intact, bleeding controlled, No vc redness/swelling at site. Pressure dressing applied. Administered Medications: 16:48 Drug: fentaNYL (PF) 50 mcg Route: IVP; Site: left antecubital; vc 17:48 Follow up: Response: No adverse reaction; Pain is decreased vc 16:48 Drug: Zofran 4 mg Route: IVP; Site: left antecubital; vc 17:48 Follow up: Response: No adverse reaction vc 18:30 Drug: fentaNYL (PF) 25 mcg Route: IVP; Site: left antecubital; vc 19:00 Follow up: Response: No adverse reaction; Pain is decreased vc 18:33 Drug: Propofol 0.5 mg/kg {Note: administered 6ml .} Route: IVP; Site: left antecubital; vc 19:00 Follow up: Response: No adverse reaction; Blood pressure is lowered vc Outcome: 20:04 Discharge ordered by MD. pm1 21:15 Discharged to home via wheelchair, with friend. vc 21:15 Condition: improved 21:15 Discharge instructions given to patient, Instructed on discharge instructions, follow up and referral plans. Demonstrated understanding of instructions, follow-up care. 21:21 Patient left the ED. lt1 Signatures: Juju Shelton RN RN iw Phoenix Rankin NP TELEMARKETING SUPERVISOR pm1 Kaitlin Oakley lt1 Iliana Cifuentes RN RN vc Corrections: (The following items were deleted from the chart) 12/25 00:51 00:42 To radiology for Hip Right 2 View+RAD.RAD.BRZ. vc vc 00:51 00:42 To radiology for Hip Right 1 View+RAD.RAD.BRZ. vc vc 00:55 12/24 18:39 Assist provider with reduction Performed by Tejas Matamoros MD Patient vc tolerated well. vc
--- NOTE | 2019-12-24 20:06 | EDPHYS ---
Physician Documentation [facility] Name: Mary Archuleta Age: 79 yrs Sex: Female : 1940 Arrival Date: 12/24/2019 Time: 15:45 Bed 24 Private MD: ED Physician Tejas Matamoros HPI: 12/24 15:57 This 79 yrs old Female presents to ER via EMS with complaints of Right hip pm1 pain. 15:57 The patient or guardian reports possible dislocation. that occurred at home, sustained pm1 from bending over. The complaints affect the right hip. Onset: The symptoms/episode began/occurred today. Modifying factors: The symptoms are alleviated by remaining still, the symptoms are aggravated by any movement. Associated signs and symptoms: Pertinent negatives: abdominal pain, fever, nausea, vomiting. Severity of symptoms: in the emergency department the symptoms are unchanged, a " 1" out of "10". The patient has not experienced similar symptoms in the past. Hip surgery in 2005. Patient was bending over to put some dishes away and felt her right hip pop. Stood up, pulling on the cabinet and felt her right hip pop again. Historical: - Allergies: 16:04 Lisinopril; vc - Home Meds: 16:04 Eliquis Oral [Active]; metoprolol succinate Oral [Active]; pravastatin 20 mg Oral tab 1 vc tab once daily [Active]; torsemide Oral [Active]; omeprazole 40 mg Oral cpDR 1 cap once daily [Active]; Hydrocodone-Acetaminophen Oral [Active]; Potassium Chloride Oral [Active]; - PMHx: 16:04 Atrial Fib; BREAST CA; cervical cancer; Depression; Diabetes - NIDDM; Hyperlipidemia; vc Hypertension; Hypothyroidism; lymphedema; peptic ulcers; - PSHx: 16:04 RIGHT HIP REPLACEMENT; RIGHT KNEE REPLACEMENT; vc - Immunization history:: Adult Immunizations up to date. - Coronavirus screen:: The patient has NOT traveled to [place] in the past 14 days. - Social history:: Smoking status: Patient denies any tobacco usage or history of. - Ebola Screening: : No symptoms or risks identified at this time. ROS: 16:04 Constitutional: Negative for fever, chills, and weight loss, Neck: Negative for injury, pm1 pain, and swelling, Cardiovascular: Negative for chest pain, palpitations, and edema, Respiratory: Negative for shortness of breath, cough, wheezing, and pleuritic chest pain, Abdomen/GI: Negative for abdominal pain, nausea, vomiting, diarrhea, and constipation, Back: Negative for injury and pain. 16:04 Skin: Negative for injury, rash, and discoloration, Neuro: Negative for headache, weakness, numbness, tingling, and seizure. 16:04 MS/extremity: Positive for decreased range of motion, pain, of the right hip. Exam: 16:04 Constitutional: This is a well developed, well nourished patient who is awake, alert, pm1 and in no acute distress. Head/Face: Normocephalic, atraumatic. Neck: Trachea midline, no thyromegaly or masses palpated, and no cervical lymphadenopathy. Supple, full range of motion without nuchal rigidity, or vertebral point tenderness. No Meningismus. Chest/axilla: Normal chest wall appearance and motion. Nontender with no deformity. No lesions are appreciated. Cardiovascular: Regular rate and rhythm with a normal S1 and S2. No gallops, murmurs, or rubs. Normal PMI, no JVD. No pulse deficits. Respiratory: Lungs have equal breath sounds bilaterally, clear to auscultation and percussion. No rales, rhonchi or wheezes noted. No increased work of breathing, no retractions or nasal flaring. Abdomen/GI: Soft, non-tender, with normal bowel sounds. No distension or tympany. No guarding or rebound. No evidence of tenderness throughout. Skin: Warm, dry with normal turgor. Normal color with no rashes, no lesions, and no evidence of cellulitis. 16:04 Musculoskeletal/extremity: Extremities: grossly normal except: noted in the right hip: pain, tenderness, Pulses: noted to be 2+ in the right dorsalis pedis artery, the right foot Sensation intact. 16:04 Neuro: Orientation: is normal, Sensation: Vital Signs: 15:48 BP 122 / 80; Pulse 70; Resp 17; Temp 97.9(T); Pulse Ox 95% on R/A; Weight 58.97 kg; vc Height 5 ft. 1 in. (154.94 cm); Pain 2/10; 17:00 BP 124 / 82; Pulse 72; Resp 15; Pulse Ox 96% on R/A; vc 18:28 BP 119 / 63; Pulse 76; Resp 17; Pulse Ox 100% on 2 lpm NC; lt1 19:00 BP 104 / 68; Pulse 81; Resp 20; Pulse Ox 100% on 2 lpm NC; vc 20:00 BP 110 / 72; Pulse 73; Resp 18; Pulse Ox 100% on 2 lpm NC; vc 21:00 BP 118 / 78; Pulse 76; Resp 18; Pulse Ox 100% on R/A; vc 15:48 Body Mass Index 24.56 (58.97 kg, 154.94 cm) vc Procedures: 18:40 Reduction: of the right hip, using traction, manipulation, Patient tolerated well. Post rn reduction film - reveals normal alignment. Moderate sedation: Pre-procedure assessment: the patient has been NPO 8 hour(s) prior to arrival, ASA physical classification: I - healthy, no underlying organic disease, Airway assessment: able to hyperextend neck, able to maintain airway, can open mouth without difficulty, Monitoring during procedure: monitor and storage bin tender, continuous pulse oximetry, nurse at bedside at all times, Medications employed: propofol, Post-procedure assessment: the patient is not sedated, Respiratory status: even and unlabored, a reversal agent was not used. MDM: 15:56 Patient medically screened. pm1 15:57 ED course: Patient refused pain medications since she was 11/11. pm1 16:19 Data reviewed: vital signs. Data interpreted: Pulse oximetry: on room air is 95 %. pm1 Interpretation: normal. 17:44 Counseling: I had a detailed discussion with the patient and/or guardian regarding: the pm1 historical points, exam findings, and any diagnostic results supporting the discharge/admit diagnosis, radiology results, need for conscious sedation with closed reduction of right hip. 12/24 15:56 Order name: Hip Right 2 View XRAY pm1 12/24 19:04 Order name: Hip Right 1 View XRAY pm1 12/24 21:11 Order name: RAD EDVT 12/24 16:19 Order name: IV Saline Lock; Complete Time: 16:46 pm1 12/24 17:43 Order name: Conscious Sedation; Complete Time: 19:42 pm1 Administered Medications: 16:48 Drug: fentaNYL (PF) 50 mcg Route: IVP; Site: left antecubital; vc 17:48 Follow up: Response: No adverse reaction; Pain is decreased vc 16:48 Drug: Zofran 4 mg Route: IVP; Site: left antecubital; vc 17:48 Follow up: Response: No adverse reaction vc 18:30 Drug: fentaNYL (PF) 25 mcg Route: IVP; Site: left antecubital; vc 19:00 Follow up: Response: No adverse reaction; Pain is decreased vc 18:33 Drug: Propofol 0.5 mg/kg {Note: administered 6ml .} Route: IVP; Site: left antecubital; vc 19:00 Follow up: Response: No adverse reaction; Blood pressure is lowered vc Disposition: 12/25 07:03 Co-signature as Attending Physician, Tejas Matamoros MD. rn Disposition: 12/24/19 20:04 Discharged to Home. Impression: Posterior dislocation of right hip. - Condition is Stable. - Medication Reconciliation Form, Thank You Letter, Antibiotic Education, Prescription Opioid Use form. - Follow up: Emergency Department; When: As needed; Reason: Worsening of condition. Follow up: Private Physician; When: 2 - 3 days; Reason: Recheck today's complaints, Continuance of care, Re-evaluation by your physician. - Problem is new. - Symptoms have improved. Signatures: Dispatcher [employer] EDMS Tejas Matamoros MD MD rn Marinas, Patrick, [employer]UM[employer] DYEING MACHINE TENDER pm1 Oakley, Kaitlin 1 Iliana Cifuentes RN RN vc Corrections: (The following items were deleted from the chart) 12/24 21:21 20:04 12/24/2019 20:04 Discharged to Home. Impression: Posterior dislocation of right lt1 hip. Condition is Stable. Forms are Medication Reconciliation Form, Thank You Letter, Antibiotic Education, Prescription Opioid Use. Follow up: Emergency Department; When: As needed; Reason: Worsening of condition. Follow up: Private Physician; When: 2 - 3 days; Reason: Recheck today's complaints, Continuance of care, Re-evaluation by your physician. Problem is new. Symptoms have improved. pm1
--- NOTE | 2019-12-24 20:40 | RAD REPORT ---
EXAM DESCRIPTION: RAD - Hip Right 1 View - 12/24/2019 8:01 pm FINDINGS: Single AP projection obtained labeled post reduction. Femoral component is normally positioned in the acetabular cup. No acute napaim[place] bone finding identifiable. Bones are osteopenic which limits pelvic detail. Patient h as distorted superior and inferior pubic rami from chronic fracture deformities.
[2019-12-24 21:36] VITALS: TEMP 97.9
[2019-12-24 21:43] VITALS: BP 119/63; O2SAT 100
== END 2019-12-24 21:21 | disposition home or self-care (01) ==
LOC: ER 15:43
PROC: 0SS9XZZ Reposition Right Hip Joint, External Approach (ICD-10-PCS; principal; 2019-12-24)
DX: S73.014A Posterior dislocation of right hip, initial encounter (principal); X50.1XXA Overexertion from prolonged static or awkward postures, initial encounter; Y93.9 Activity, unspecified; Y92.9 Unspecified place or not applicable
CPT/HCPCS: 73502; 73501; 96375; 96374; 99285; 27250; J2704; J3010 ×2; J7030; J2405 ×2

== ENCOUNTER 2019-12-28 16:26 | Emergency (ER) | payer OTHER, BC ==
--- OUTSIDE RECORDS SUMMARY | 2019-12-28 16:31 | XMS REPORT ---
:1940 [facility] [address] [place] [address] Care Team Providers Name Role Phone LINK, MARCO A LEE Unavailable Unavailable MOLLYCHELSEY CAMPBELL Unavailable Unavailable EDIE CLEMENT Unavailable Unavailable ZUÑIGACASIE NAVARRETE Unavailable Unavailable PILO SIMPSON Unavailable Unavailable LESLIE PRITCHADR Unavailable Unavailable LESLIE LOPEZ Unavailable Unavailable SAMWAYSLAURE [...] PATIENT ID: TUBE CHANGE, LEFT 12:12:00 Exam:->Chronic [id number] Fluoroscopic bilateral nephrostomy guided right nephrostomy tubes for bilateral and left ureteral obstruction. nephroureterostomy catheter exchange. History: Chronic ureteral obstruction Modality: Fluoroscopy Sedation: None Dean Of Graduate Studies: Tutu Kruse MD Temporary Office Assistant: None. Approach: Via indwelling bilateral catheters Estimated [...] was removed over wire. A new 10.2 Afghan by 22 cm nephroureterostomy catheter was advanced [...] existing catheter was removed. A new 12 Afghan nephrostomy catheter was advanced over wire with pigtail formed within the right renal pelvis. No external suture was used per patient's preference. A sterile dressing was applied. The patient tolerated the procedure without immediate complication. Impression: Successful fluoroscopic guided left percutaneous nephroureterostomy and right sided percutaneous nephrostomy catheter exchange. Signed: Tutu Kruse MDReport Verified Date/Time: 10/11/2019 12:12:41 Reading Location: [place] [address] Angio Body Reading Room 2019-10-10 10:56:00 Test Item Value Reference Range Comments PARTIAL THROMBOPLASTIN TIME (BEAKER) (test vewz=199) 43.6 seconds 22.5-36.0 PROTHROMBIN [id number] 10:55:00 Test Item Value Reference Range Comments PROTIME (BEAKER) (test zmkv=215) 17.4 seconds 11.9-14.2 INR (BEAKER) (test uhxi=178) 1.5 <=5.9 Effective 03/30/2019: PT Reference Range ChangeNew: 11.9-14.2 Previous: 11.7- 14.7RECOMMENDED COUMADIN/WARFARIN INR THERAPY RANGESSTANDARD DOSE: 2.0-3.0 Includes: PROPHYLAXIS for venous thrombosis, systemic embolization; TREATMENT for venous thrombosis and/or pulmonary embolus.HIGH RISK: Target INR is2.5-3.5 for patients wiht mechanical heart valves.CBC W/PLT COUNT & AUTO [id number] 10:48:00 Test Item Value Reference Range Comments WHITE BLOOD CELL COUNT (BEAKER) (test lfzh=943) 7.5 K/ L 3.5-10.5 RED BLOOD CELL COUNT (BEAKER) (test kipm=056) 3.19 M/ L 3.93-5.22 HEMOGLOBIN (BEAKER) (test xfbu=560) 9.4 GM/DL 11.2-15.7 HEMATOCRIT (BEAKER) (test fagu=803) 31.3 % 34.1-44.9 MEAN CORPUSCULAR VOLUME (BEAKER) (test kxwm=924) 98.1 fL 79.4-94.8 MEAN CORPUSCULAR HEMOGLOBIN (BEAKER) (test 29.5 pg 25.6-32.2 mjse=101) MEAN CORPUSCULAR HEMOGLOBIN CONC (BEAKER) (test 30.0 GM/DL 32.2-35.5 rjup=746) RED CELL DISTRIBUTION WIDTH (BEAKER) (test 16.1 % 11.7-14.4 ufmk=951) PLATELET COUNT (BEAKER) (test zsgf=920) 399 K/CU MM 150-450 MEAN PLATELET VOLUME (BEAKER) (test ktzx=538) 9.0 fL 9.4-12.3 NUCLEATED RED BLOOD CELLS (BEAKER) (test 0 /100 WBC 0-0 hfut=176) NEUTROPHILS RELATIVE PERCENT (BEAKER) (test 77 % bygj=251) LYMPHOCYTES RELATIVE PERCENT (BEAKER) (test 11 % iznf=144) MONOCYTES RELATIVE PERCENT (BEAKER) (test 9 % assq=931) EOSINOPHILS RELATIVE PERCENT (BEAKER) (test 2 % uqpn=991) BASOPHILS RELATIVE PERCENT (BEAKER) (test 0 % uqel=246) NEUTROPHILS ABSOLUTE COUNT (BEAKER) (test 5.71 K/ L 1.56-6.13 jsul=968) LYMPHOCYTES ABSOLUTE COUNT (BEAKER) (test 0.81 K/ L 1.18-3.74 qkiu=816) MONOCYTES ABSOLUTE COUNT (BEAKER) (test 0.68 K/ L 0.24-0.36 phnm=198) EOSINOPHILS ABSOLUTE COUNT (BEAKER) (test 0.18 K/ L 0.04-0.36 lyuz=648) BASOPHILS ABSOLUTE COUNT (BEAKER) (test 0.03 K/ L 0.01-0.08 tfsj=015) IMMATURE GRANULOCYTES-RELATIVE PERCENT (BEAKER) 1 % 0-1 (test yzyr=4079) PROTHROMBIN [id number] 14:50:00 Test Item Value Reference Range Comments PROTIME (BEAKER) (test owfv=532) 18.4 seconds 11.9-14.2 INR (BEAKER) (test wkop=808) 1.6 <=5.9 Effective 03/30/2019: PT Reference Range ChangeNew: 11.9-14.2 Previous: 11.7- 14.7RECOMMENDED COUMADIN/WARFARIN INR THERAPY RANGESSTANDARD DOSE: 2.0-3.0 Includes: PROPHYLAXIS for venous thrombosis, systemic embolization; TREATMENT for venous thrombosis and/or pulmonary embolus.HIGH RISK: Target INR is2.5-3.5 for patients wiht mechanical heart valves.URINALYSIS W/ [id number] 14 :42:00 Test Item Value Reference Range Comments COLOR (BEAKER) (test gnpv=957) Yellow CLARITY (BEAKER) (test mifh=750) Hazy SPECIFIC GRAVITY UA (BEAKER) (test 1.019 1.001-1.035 lscj=834) PH UA (BEAKER) (test hekx=267) 8.0 5.0-8.0 PROTEIN UA (BEAKER) (test hhcc=544) 100 mg/dL Negative GLUCOSE UA (BEAKER) (test oomc=512) Negative Negative KETONES UA (BEAKER) (test ggoj=799) Negative Negative BILIRUBIN UA (BEAKER) (test tkeh=239) Negative Negative BLOOD UA (BEAKER) (test kgxx=370) Small Negative NITRITE UA (BEAKER) (test lmwq=846) Positive Negative LEUKOCYTE ESTERASE UA (BEAKER) (test Large Negative yycs=040) UROBILINOGEN UA (BEAKER) (test vzyt=543) 0.2 mg/dL 0.2-1.0 RBC UA (BEAKER) (test ijqs=620) 28 /HPF WBC UA (BEAKER) (test ncbl=421) 53 /HPF BACTERIA (BEAKER) (test aked=452) Moderate MUCUS (BEAKER) (test ranj=8636) Few TRIPLE PHOSPHATE CRYSTALS (BEAKER) (test Few tnlb=7190) YEAST (BEAKER) (test dspy=5619) Moderate SOURCE(BEAKER) (test hwek=9154) Urine, Nephrostomy BASIC METABOLIC [id number] 14:37:00 Test Item Value Reference Range Comments SODIUM (BEAKER) (test 136 meq/L 136-145 dwee=419) POTASSIUM (BEAKER) (test 4.4 meq/L 3.5-5.1 kynv=915) CHLORIDE (BEAKER) (test 103 meq/L 98-107 zsqm=029) CO2 (BEAKER) (test 27 meq/L 22-29 kgms=030) BLOOD UREA NITROGEN 23 mg/dL 7-21 (BEAKER) (test zyvg=367) CREATININE (BEAKER) (test 0.98 mg/dL 0.57-1.25 hget=215) GLUCOSE RANDOM (BEAKER) 90 mg/dL 70-105 (test sjit=079) CALCIUM (BEAKER) (test 8.9 mg/dL 8.4-10.2 txiv=946) EGFR (BEAKER) (test 55 mL/min/1.73 sq m ESTIMATED GFR IS NOT jhkk=2461) ACCURATE CREATININE CLEARANCE IN PREDICTING GLOMERULAR FILTRATION RATE. ESTIMATED GFR IS NOT APPLICABLE FOR DIALYSIS PATIENTS. CBC W/PLT COUNT & AUTO [id number] 14:22:00 Test Item Value Reference Range Comments WHITE BLOOD CELL COUNT (BEAKER) (test acmv=429) 6.0 K/ L 3.5-10.5 RED BLOOD CELL COUNT (BEAKER) (test yaeu=132) 3.34 M/ L 3.93-5.22 HEMOGLOBIN (BEAKER) (test dfpr=666) 9.7 GM/DL 11.2-15.7 HEMATOCRIT (BEAKER) (test medf=147) 33.0 % 34.1-44.9 MEAN CORPUSCULAR VOLUME (BEAKER) (test egpy=379) 98.8 fL 79.4-94.8 MEAN CORPUSCULAR HEMOGLOBIN (BEAKER) (test 29.0 pg 25.6-32.2 vzss=700) MEAN CORPUSCULAR HEMOGLOBIN CONC (BEAKER) (test 29.4 GM/DL 32.2-35.5 xqme=372) RED CELL DISTRIBUTION WIDTH (BEAKER) (test 16.2 % 11.7-14.4 jtse=388) PLATELET COUNT (BEAKER) (test htkj=443) 363 K/CU MM 150-450 MEAN PLATELET VOLUME (BEAKER) (test fepf=254) 9.3 fL 9.4-12.3 NUCLEATED RED BLOOD CELLS (BEAKER) (test 0 /100 WBC 0-0 typk=459) NEUTROPHILS RELATIVE PERCENT (BEAKER) (test 68 % ldhn=781) LYMPHOCYTES RELATIVE PERCENT (BEAKER) (test 15 % maxe=750) MONOCYTES RELATIVE PERCENT (BEAKER) (test 14 % esqr=891) EOSINOPHILS RELATIVE PERCENT (BEAKER) (test 2 % kyto=993) BASOPHILS RELATIVE PERCENT (BEAKER) (test 1 % pysb=120) NEUTROPHILS ABSOLUTE COUNT (BEAKER) (test 4.10 K/ L 1.56-6.13 qnde=670) LYMPHOCYTES ABSOLUTE COUNT (BEAKER) (test 0.91 K/ L 1.18-3.74 lzrv=980) MONOCYTES ABSOLUTE COUNT (BEAKER) (test 0.82 K/ L 0.24-0.36 vofh=470) EOSINOPHILS ABSOLUTE COUNT (BEAKER) (test 0.12 K/ L 0.04-0.36 tfhe=739) BASOPHILS ABSOLUTE COUNT (BEAKER) (test 0.03 K/ L 0.01-0.08 hefr=913) IMMATURE GRANULOCYTES-RELATIVE PERCENT (BEAKER) 0 % 0-1 (test upww=8308) RAD, ABDOMEN/KUB, 1 VIEW [id number] 18:36:00Reason for exam:->FLANK PAINFINAL REPORT Abdomen. MEDICAL [...] MDReport Verified Date/Time: 08/15/2019 18:36:07 Reading Location: [facility] [id number] Consult Reading Room ANG, NEPHROSTOMY TUBE CHANGE, [id number] 18:18:00Reason for Exam:-& gt;hydronephrosisFINAL REPORT Procedure: Right percutaneous nephrostomy catheter exchange. Left percutaneous nephroureterostomy catheter exchange. History: Routine maintenance. . Dean Of Graduate Studies: Yaya Templeton M.D. Temporary Office Assistant: None. Modality: Fluoroscopy. DOSE REDUCTION: The examination [...] local infiltration. Medicines: Not applicable Contrast medium: [id number], 30 cc. Estimated blood loss: < 5 [...] draped in the standard sterile fashion. A shear operator radiograph was performed showing the catheter [...] immediate. Findings:As above. Impression:Successful fluoroscopic guided 12 Afghan right nephrostomy catheter exchange and 10.2 Afghan by 24 cm left nephroureteral stent exchange as described above. Further management dictated by the clinical scenario. The nephrostomycatheter should be exchanged at the latest in three months. Thank you for the opportunity to assist in the care of your patient. Signed: Yaya Templeton Verified Date/Time: 2018 18:18:25 Reading Location: [address] Body Reading Room CBC W/ PLT COUNT & AUTO [id number] 17:21:00 Test Item Value Reference Range Comments WHITE BLOOD CELL COUNT (BEAKER) (test mgnw=246) 13.6 K/ L 3.5-10.5 RED BLOOD CELL COUNT (BEAKER) (test qerf=741) 2.91 M/ L 3.93-5.22 HEMOGLOBIN (BEAKER) (test rrsm=442) 8.7 GM/DL 11.2-15.7 HEMATOCRIT (BEAKER) (test glmg=289) 27.3 % 34.1-44.9 MEAN CORPUSCULAR VOLUME (BEAKER) (test miva=358) 93.8 fL 79.4-94.8 MEAN CORPUSCULAR HEMOGLOBIN (BEAKER) (test 29.9 pg 25.6-32.2 sjrn=578) MEAN CORPUSCULAR HEMOGLOBIN CONC (BEAKER) (test 31.9 GM/DL 32.2-35.5 wzay=213) RED CELL DISTRIBUTION WIDTH (BEAKER) (test 16.2 % 11.7-14.4 xpyv=737) PLATELET COUNT (BEAKER) (test jqlj=762) 476 K/CU MM 150-450 MEAN PLATELET VOLUME (BEAKER) (test vvhu=796) 9.5 fL 9.4-12.3 NUCLEATED RED BLOOD CELLS (BEAKER) (test 0 /100 WBC 0-0 gccg=282) (CELLAVISION MANUAL DIFF)2019-08-15 17:21:00 Test Item Value Reference Range Comments NEUTROPHILS - REL (CELLAVISION)(BEAKER) (test 80 % dzap=2911) LYMPHOCYTES - REL (CELLAVISION)(BEAKER) (test 9 % xfyq=0582) MONOCYTES - REL (CELLAVISION)(BEAKER) (test 8 % paik=8258) METAMYELOCYTES - REL (CELLAVISION)(BEAKER) (test 1 % 0-0 lmkc=3895) MYELOCYTES - REL (CELLAVISION)(BEAKER) (test 1 % 0-0 qrvf=1708) BANDS - REL (CELLAVISION)(BEAKER) (test 1 % 0-10 sned=9261) NEUTROPHILS - ABS (CELLAVISION)(BEAKER) (test 10.88 K/ul 1.56-6.13 mdjw=7176) LYMPHOCYTES - ABS (CELLAVISION)(BEAKER) (test 1.22 K/ul 1.18-3.74 bsrs=0719) MONOCYTES - ABS (CELLAVISION)(BEAKER) (test 1.09 K/uL 0.24-0.36 wbow=1986) METAMYELOCYTES - ABS (CELLAVISION)(BEAKER) (test 0.14 K/uL 0.00-0.00 dodp=0915) MYELOCYTES-ABS (CELLAVISION)(BEAKER) (test 0.14 K/uL 0.00-0.00 wfzw=1365) BANDS - ABS (CELLAVISION)(BEAKER) (test 0.14 K/uL 0.00-0.80 fwkx=8264) TOTAL COUNTED (BEAKER) (test dqff=8717) 100 WBC MORPHOLOGY (BEAKER) (test xziw=324) Normal GIANT PLATELETS (BEAKER) (test dhbp=583) Present POLYCHROMATOPHILLIC RBCS(BEAKER) (test jltr=023) 1+ few POIKILOCYTES (BEAKER) (test qvzs=708) 1+ few TARGET CELLS (BEAKER) (test xatw=802) 1+ few OVALOCYTES (BEAKER) (test uyvm=352) 1+ few PLATELET CONCENTRATION (CELLAVISION)(BEAKER) Increased (test ghix=0518) Received comment: User comments: Slide comments:BASIC METABOLIC [id number] 17:15:00 Test Item Value Reference Range Comments SODIUM (BEAKER) (test 137 meq/L 136-145 zjgn=083) POTASSIUM (BEAKER) (test 4.0 meq/L 3.5-5.1 tdcd=090) CHLORIDE (BEAKER) (test 103 meq/L 98-107 sejy=223) CO2 (BEAKER) (test 24 meq/L 22-29 llhw=699) BLOOD UREA NITROGEN 35 mg/dL 7-21 (BEAKER) (test iigo=424) CREATININE (BEAKER) (test 1.53 mg/dL 0.57-1.25 bvxn=512) GLUCOSE RANDOM (BEAKER) 146 mg/dL 70-105 (test hnrt=666) CALCIUM (BEAKER) (test 9.2 mg/dL 8.4-10.2 whsi=028) EGFR (BEAKER) (test 33 mL/min/1.73 sq m ESTIMATED GFR IS NOT hsld=3737) ACCURATE CREATININE CLEARANCE IN PREDICTING GLOMERULAR FILTRATION RATE. ESTIMATED GFR IS NOT APPLICABLE FOR DIALYSIS PATIENTS. URINALYSIS W/ REFLEX URINE [id number] 17:12:00 Test Item Value Reference Range Comments COLOR (BEAKER) (test pioz=255) Dark Red CLARITY (BEAKER) (test dxoi=921) Turbid SPECIFIC GRAVITY UA (BEAKER) (test yjhz=673) 1.015 1.001-1.035 PH UA (BEAKER) (test mrie=389) 7.0 5.0-8.0 PROTEIN UA (BEAKER) (test oztj=108) 200 mg/dL Negative GLUCOSE UA (BEAKER) (test wvtv=078) Negative Negative KETONES UA (BEAKER) (test enfc=963) Negative Negative BILIRUBIN UA (BEAKER) (test zdfd=307) Negative Negative BLOOD UA (BEAKER) (test oumg=994) Large Negative NITRITE UA (BEAKER) (test xrak=089) Negative Negative LEUKOCYTE ESTERASE UA (BEAKER) (test kdtk=595) Large Negative UROBILINOGEN UA (BEAKER) (test vctj=410) 0.2 mg/dL 0.2-1.0 RBC UA (BEAKER) (test hoeu=906) > /HPF WBC UA (BEAKER) (test tdwp=184) > /HPF SOURCE(BEAKER) (test jkwg=9792) [id number] 12:26:00 Test Item Value Reference Range Comments MAGNESIUM (BEAKER) (test ebde=479) 1.8 mg/dL 1.6-2.6 BASIC METABOLIC [id number] 12:26:00 Test Item Value Reference Range Comments SODIUM (BEAKER) (test 136 meq/L 136-145 wsqc=977) POTASSIUM (BEAKER) (test 3.4 meq/L 3.5-5.1 ruvi=862) CHLORIDE (BEAKER) (test 94 meq/L 98-107 rkfj=384) CO2 (BEAKER) (test 31 meq/L 22-29 inoh=154) BLOOD UREA NITROGEN 38 mg/dL 7-21 (BEAKER) (test xdgh=770) CREATININE (BEAKER) (test 1.25 mg/dL 0.57-1.25 ekaj=794) GLUCOSE RANDOM (BEAKER) 105 mg/dL 70-105 (test qnml=818) CALCIUM (BEAKER) (test 9.5 mg/dL 8.4-10.2 ggpq=104) EGFR (BEAKER) (test 42 mL/min/1.73 sq m ESTIMATED GFR IS NOT funo=4397) ACCURATE CREATININE CLEARANCE IN PREDICTING GLOMERULAR FILTRATION RATE. ESTIMATED GFR IS NOT APPLICABLE FOR DIALYSIS PATIENTS. ANG, NEPHROSTOMY TUBE CHANGE, [id number] 13:53:00Reason for Exam:-> hydronephrosis unspecifiedFINAL REPORT Fluoroscopic guided right nephrostomy and left nephroureterostomy catheter exchange. History: Chronic ureteral obstruction Modality: Fluoroscopy Sedation: None Dean Of Graduate Studies : Gerald Baeza MD. Temporary Office Assistant: None. Approach: Via indwelling bilateral catheters Estimated [...] The Glidewire was exchanged over a 4 Afghan Walsh catheter for a 0.035 inch Bentson wire. A new 10.2 Afghan by 24 cm nephroureterostomy catheter was advanced [...] through the indwelling catheter. Subsequently, a 4 Afghan Walsh catheter and 0.035 angled Glidewire was advanced alongside the catheter and access to the right renal pelvis was obtained. The existing catheter was removed. The Glidewire was exchanged for a 0.035 Bentson wire. A new 12 Afghan nephrostomy catheter wasadvanced over wire with pigtail formed within the right renal pelvis. The catheter was fixed to the skin with silk suture. A sterile dressing was applied. The patient tolerated the procedure without immediate complication. Impression: Successful fluoroscopic guided left percutaneous nephroureterostomy and right sided percutaneous nephrostomy catheter exchange. Signed: Gerald Baeza [facility] Verified Date/Time: 06/02/2019 13:53:40 Reading Location: [place] [address] Angio Body Reading Room Electronically signed by: GERALD BAEZA MD on 2018 01:53 PMANG, NEPHROSTOMY TUBE CHANGE, [id number] 19:15:00Reason for Exam:->hydronephrosis unspecifiedFINAL REPORT History : [...] over a Bentson wire. A new 12 Afghan external nephrostomy catheter was placed over the [...] removed over a wire. A new 10 Afghan by 24 cm nephroureteral stent was placed [...] Verified Date/ Time: 02/23/2019 19:15:22 Reading Location: [place] [address] Angio Body Reading Room BASI METABOLIC [id number] 11:18:00 Test Item Value Reference Range Comments SODIUM (BEAKER) (test 137 meq/L 136-145 lylf=619) POTASSIUM (BEAKER) (test 4.4 meq/L 3.5-5.1 fhtf=738) CHLORIDE (BEAKER) (test 106 meq/L 98-107 ceac=937) CO2 (BEAKER) (test 23 meq/L 22-29 dolz=641) BLOOD UREA NITROGEN 32 mg/dL 7-21 (BEAKER) (test mntu=137) CREATININE (BEAKER) (test 1.10 mg/dL 0.57-1.25 tqnq=928) GLUCOSE RANDOM (BEAKER) 128 mg/dL 70-105 (test xoge=047) CALCIUM (BEAKER) (test 9.2 mg/dL 8.4-10.2 gzqi=400) EGFR (VERONICA) (test 48 mL/min/1.73 sq m ESTIMATED GFR IS NOT clyt=3855) ACCURATE CREATININE CLEARANCE IN PREDICTING GLOMERULAR FILTRATION RATE. ESTIMATED GFR IS NOT APPLICABLE FOR DIALYSIS PATIENTS. HARPREET, NEPHROSTOMY TUBE CHANGE, [id number] 17:38:00Reason for Exam:-> n13.30FINAL REPORT Fluoroscopic guided right nephrostomy tube and left nephroureterostomy catheter replacement, 11/25/2018. Clinical History: Ureteral obstruction. Modality: Fluoroscopy. Dean Of Graduate Studies : Jenny. Temporary Office Assistant: Macario. Sedation: None. Estimated Blood Loss: Less [...] catheter was removed and a new 10.2 Afghan x 24 cm nephrostomy catheter was advancedover [...] catheter was removed and a new 12 Afghan drainage catheter was advanced over the wire [...] Verified Date/Time: 11/25/2018 17: 38:15 Reading Location: [facility] B1 P048 Angio Body Reading Room 05:38 PMANG, NEPHROSTOMY TUBE CHANGE, [id number] 14:10:00Reason for Exam:->hydronephrosis unspecified hydronephrosis typeFINAL REPORT Right percutaneous nephrostomy and left percutaneous nephroureterostomy catheter exchange. History: Ureteral obstruction Modality: fluoroscopy. Sedation: None Dean Of Graduate Studies: Gerald Baeza MD. Temporary Office Assistant: None. Approach: Lashonda Oakes (resident) Estimated blood [...] removed over wire and a new 12 Afghan nephrostomy catheter was advanced over wire with [...] catheter was removed and a new 8.5 Afghan by 24 cm nephroureterostomy catheter was advanced [...] Baezaort Verified Date/Time: 2017 14:10:12 Reading Location: [facility] P048 Angio Body Reading Room [id number] 12:58:00 Test Item Value Reference Range Comments PROTIME (BEAKER) (test qbhk=283) 13.3 seconds 11.7-14.7 INR (BEAKER) (test qfzg=657) 1.0 <=5.9 PARTIAL THROMBOPLASTIN TIME (BEAKER) (test 29.4 seconds 22.5-36.0 fcsd=646) RECOMMENDED COUMADIN/WARFARIN INR THERAPY RANGESSTANDARD DOSE: 2.0 - 3.0 Includes: PROPHYLAXIS forvenous thrombosis, systemic embolization; TREATMENT for venous thrombosis and/or pulmonary embolus.HIGH RISK: Target INR is 2.5-3.5 for patients with mechanical heart valves.BASIC METABOLIC [id number] 12:19: 00 Test Item Value Reference Range Comments SODIUM (BEAKER) (test 138 meq/L 136-145 thtt=615) POTASSIUM (BEAKER) (test 4.2 meq/L 3.5-5.1 ytyf=839) CHLORIDE (BEAKER) (test 101 meq/L 98-107 iqvv=350) CO2 (BEAKER) (test 25 meq/L 22-29 ctjy=728) BLOOD UREA NITROGEN 36 mg/dL 7-21 (BEAKER) (test fcrn=286) CREATININE (BEAKER) (test 1.20 mg/dL 0.57-1.25 vodm=324) GLUCOSE RANDOM (BEAKER) 60 mg/dL 70-105 (test hdhd=511) CALCIUM (BEAKER) (test 9.3 mg/dL 8.4-10.2 ttxu=536) EGFR (BEAKER) (test 44 mL/min/1.73 sq m ESTIMATED GFR IS NOT sbpr=2478) ACCURATE CREATININE CLEARANCE IN PREDICTING GLOMERULAR FILTRATION RATE. ESTIMATED GFR IS NOT APPLICABLE FOR DIALYSIS PATIENTS. [id number] 11:43:00 Test Item Value Reference Range Comments PROTIME (BEAKER) (test jdgt=172) 13.1 seconds 11.7-14.7 INR (BEAKER) (test vhzl=795) 1.0 <=5.9 PARTIAL THROMBOPLASTIN TIME (BEAKER) (test 30.4 seconds 22.5-36.0 nnax=907) RECOMMENDED COUMADIN/WARFARIN INR THERAPY RANGESSTANDARD DOSE: 2.0 - 3.0 Includes: PROPHYLAXIS forvenous thrombosis, systemic embolization; TREATMENT for venous thrombosis and/or pulmonary embolus.HIGH RISK: Target INR is 2.5-3.5 for patients with mechanical heart valves.CBC W/PLT COUNT & AUTO [id number] 11:03:00 Test Item Value Reference Range Comments WHITE BLOOD CELL COUNT (BEAKER) (test qnju=527) 8.0 K/ L 3.5-10.5 RED BLOOD CELL COUNT (BEAKER) (test oyek=620) 3.39 M/ L 3.93-5.22 HEMOGLOBIN (BEAKER) (test bruc=889) 10.8 GM/DL 11.2-15.7 HEMATOCRIT (BEAKER) (test epzt=504) 36.3 % 34.1-44.9 MEAN CORPUSCULAR VOLUME (BEAKER) (test ioph=929) 107.1 fL 79.4-94.8 MEAN CORPUSCULAR HEMOGLOBIN (BEAKER) (test 31.9 pg 25.6-32.2 vsoi=649) MEAN CORPUSCULAR HEMOGLOBIN CONC (BEAKER) (test 29.8 GM/DL 32.2-35.5 apcy=656) RED CELL DISTRIBUTION WIDTH (BEAKER) (test 15.4 % 11.7-14.4 bfoa=631) PLATELET COUNT (BEAKER) (test amak=050) 237 K/CU MM 150-450 MEAN PLATELET VOLUME (BEAKER) (test eneb=081) 11.2 fL 9.4-12.3 NUCLEATED RED BLOOD CELLS (BEAKER) (test 0 /100 WBC 0-0 yefd=014) NEUTROPHILS RELATIVE PERCENT (BEAKER) (test 70 % qwux=718) LYMPHOCYTES RELATIVE PERCENT (BEAKER) (test 18 % uylc=482) MONOCYTES RELATIVE PERCENT (BEAKER) (test 11 % heib=791) EOSINOPHILS RELATIVE PERCENT (BEAKER) (test 1 % nbdh=899) BASOPHILS RELATIVE PERCENT (BEAKER) (test 0 % irhw=324) NEUTROPHILS ABSOLUTE COUNT (BEAKER) (test 5.56 K/ L 1.56-6.13 amyf=283) LYMPHOCYTES ABSOLUTE COUNT (BEAKER) (test 1.45 K/ L 1.18-3.74 vesg=484) MONOCYTES ABSOLUTE COUNT (BEAKER) (test 0.85 K/ L 0.24-0.36 cxsb=516) EOSINOPHILS ABSOLUTE COUNT (BEAKER) (test 0.06 K/ L 0.04-0.36 uvch=607) BASOPHILS ABSOLUTE COUNT (BEAKER) (test 0.03 K/ L 0.01-0.08 kycs=521) IMMATURE GRANULOCYTES-RELATIVE PERCENT (BEAKER) 0 % 0-1 (test rfis=5801) CLAU MULLINS W/ FLUORO NEPH, TUBE [id number] 19:42:00FINAL REPORT Fluoroscopic guided bilateral nephrostomy tube exchange, 05/06/2018. Clinical History: Ureteral obstruction, clogged right PCN. Modality: Fluoroscopy. Dean Of Graduate Studies: Jenny. Temporary Office Assistant: Biju. Sedation: None. Estimated Blood Loss: Less [...] catheter was removed and a new 8 Afghan 24 cm nephroureterostomy catheter was advanced over the wire into the bladder. Pigtail was locked. Contrast was injected into the right PCN. A Glidewire was advanced through the catheter and curled within the right renal pelvis. The old catheter was removed and a new 12 Afghan pigtail catheter was placed into the right [...] Verified Date/ Time: 05/06/2018 19:42:30 Reading Location: [facility] P048 Angio Body Reading Room URINE [id number] 12:31:00 Test Item Value Reference Range Comments CULTURE (BEAKER) (test wlzc=6794) >100,000 col/mL skin thomas ANG, NEPHROSTOMY TUBE CHANGE, [id number] 17:42:00Reason for exam:->Tube not drainingFINAL REPORT Right nephrostomy catheter exchange. History: Malfunction right nephrostomy catheter Modality: Fluoroscopy Sedation:None Dean Of Graduate Studies: Gerald Baeza MD. Temporary Office Assistant: None. Approach: Right flank Estimated blood loss: [...] was removed over wire. A new 10.2 Afghan nephrostomy catheter was advanced over wire with pigtail formed within the right renal pelvis. Contrast injection confirmed positioning. The catheter was fixed to the skin withsilk suture. A sterile dressing was applied. The patient tolerated the procedure well without immediate application. Impression: Successful right percutaneous nephrostomy catheter exchange. Signed: Gerald Baezaeport Verified Date/Time: 04/09/2018 17:42:07 Reading Location: [place] [address] Angio Body Reading Room URINALYSIS W/ [id number] 14 :48:00 Test Item Value Reference Range Comments COLOR (BEAKER) (test mqzv=580) Yellow CLARITY (BEAKER) (test iala=038) Hazy SPECIFIC GRAVITY UA (BEAKER) (test dgre=772) 1.013 1.001-1.035 PH UA (BEAKER) (test clfo=252) 8.5 5.0-8.0 PROTEIN UA (BEAKER) (test ljyk=850) 300 mg/dL Negative GLUCOSE UA (BEAKER) (test mnlp=667) Negative Negative KETONES UA (BEAKER) (test uewj=462) Negative Negative BILIRUBIN UA (BEAKER) (test ihdv=659) Negative Negative BLOOD UA (BEAKER) (test wqct=298) Trace Negative NITRITE UA (BEAKER) (test jeme=334) Negative Negative LEUKOCYTE ESTERASE UA (BEAKER) (test eubr=038) Large Negative UROBILINOGEN UA (BEAKER) (test doic=979) 0.2 mg/dL 0.2-1.0 RBC UA (BEAKER) (test avwf=757) 23 /HPF WBC UA (BEAKER) (test sacy=016) 0 /HPF MUCUS (BEAKER) (test zxoe=4399) Occasional TRIPLE PHOSPHATE CRYSTALS (BEAKER) (test Occasional owqe=8792) SOURCE(BEAKER) (test lcas=0596) Urine, [place] BASIC METABOLIC [id number] 14:16:00 Test Item Value Reference Range Comments SODIUM (BEAKER) (test 138 meq/L 136-145 xvip=428) POTASSIUM (BEAKER) (test 3.8 meq/L 3.5-5.1 ssep=433) CHLORIDE (BEAKER) (test 104 meq/L 98-107 ncmo=884) CO2 (BEAKER) (test 23 meq/L 22-29 uqqf=999) BLOOD UREA NITROGEN 30 mg/dL 7-21 (BEAKER) (test umzn=186) CREATININE (BEAKER) (test 1.00 mg/dL 0.57-1.25 krro=168) GLUCOSE RANDOM (BEAKER) 89 mg/dL 70-105 (test humr=598) CALCIUM (BEAKER) (test 9.6 mg/dL 8.4-10.2 jnge=210) EGFR (BEAKER) (test 54 mL/min/1.73 sq m ESTIMATED GFR IS NOT ucmr=2167) ACCURATE CREATININE CLEARANCE IN PREDICTING GLOMERULAR FILTRATION RATE. ESTIMATED GFR IS NOT APPLICABLE FOR DIALYSIS PATIENTS. [id number] 14:06:00 Test Item Value Reference Range Comments PROTIME (BEAKER) (test urtm=710) 13.8 seconds 11.7-14.7 INR (BEAKER) (test zvwq=369) 1.1 <=5.9 PARTIAL THROMBOPLASTIN TIME (BEAKER) (test 30.3 seconds 22.5-36.0 uiuw=976) RECOMMENDED COUMADIN/WARFARIN INR THERAPY RANGESSTANDARD DOSE: 2.0 - 3.0 Includes: PROPHYLAXIS forvenous thrombosis, systemic embolization; TREATMENT for venous thrombosis and/or pulmonary embolus.HIGH RISK: Target INR is 2.5-3.5 for patients with mechanical heart valves.CBC W/PLT COUNT & AUTO [id number] 13:53:00 Test Item Value Reference Range Comments WHITE BLOOD CELL COUNT (BEAKER) (test zecj=076) 7.1 K/ L 3.5-10.5 RED BLOOD CELL COUNT (BEAKER) (test muvz=631) 3.32 M/ L 3.93-5.22 HEMOGLOBIN (BEAKER) (test tjxg=471) 10.5 GM/DL 11.2-15.7 HEMATOCRIT (BEAKER) (test nrnl=253) 32.0 % 34.1-44.9 MEAN CORPUSCULAR VOLUME (BEAKER) (test gmpy=759) 96.4 fL 79.4-94.8 MEAN CORPUSCULAR HEMOGLOBIN (BEAKER) (test 31.6 pg 25.6-32.2 ubse=968) MEAN CORPUSCULAR HEMOGLOBIN CONC (BEAKER) (test 32.8 GM/DL 32.2-35.5 zwyz=492) RED CELL DISTRIBUTION WIDTH (BEAKER) (test 14.6 % 11.7-14.4 ztcm=167) PLATELET COUNT (BEAKER) (test xqqf=472) 228 K/CU MM 150-450 MEAN PLATELET VOLUME (BEAKER) (test rwwk=253) 10.8 fL 9.4-12.3 NUCLEATED RED BLOOD CELLS (BEAKER) (test 0 /100 WBC 0-0 xhnd=288) NEUTROPHILS RELATIVE PERCENT (BEAKER) (test 68 % vfqm=589) LYMPHOCYTES RELATIVE PERCENT (BEAKER) (test 18 % qofm=712) MONOCYTES RELATIVE PERCENT (BEAKER) (test 13 % yhln=799) EOSINOPHILS RELATIVE PERCENT (BEAKER) (test 1 % vruk=186) BASOPHILS RELATIVE PERCENT (BEAKER) (test 0 % cwgz=796) NEUTROPHILS ABSOLUTE COUNT (BEAKER) (test 4.78 K/ L 1.56-6.13 tkic=847) LYMPHOCYTES ABSOLUTE COUNT (BEAKER) (test 1.24 K/ L 1.18-3.74 adhg=808) MONOCYTES ABSOLUTE COUNT (BEAKER) (test 0.91 K/ L 0.24-0.36 edhr=055) EOSINOPHILS ABSOLUTE COUNT (BEAKER) (test 0.07 K/ L 0.04-0.36 lfzh=065) BASOPHILS ABSOLUTE COUNT (BEAKER) (test 0.02 K/ L 0.01-0.08 upvs=592) IMMATURE GRANULOCYTES-RELATIVE PERCENT (BEAKER) 0 % 0-1 (test bkij=4943) ANG, NEPHROSTOMY TUBE CHANGE, [id number] 09:41:00Reason for exam:-> dysfunction nephrostomy tube on [...] removed over a wire. A new 10.2 Afghan pigtail nephrostomy catheter was placed over the [...] as (Ka,r): 6.3 mGy Signed: Leslie العراقي SH[facility]PITALS FOR CHILDRENeport Verified Date/Time: 03/15/2018 09:41:31 Reading Location:[place] [address] Angio Body Reading Room ANG, NEPHROSTOMY TUBE CHANGE, [id number] 16:05:00Reason for Exam:->n13.30FINAL REPORT Left percutaneous nephroureterostomy and right percutaneous nephrostomy catheter exchange. History: 77 -year-old female with history of ureteral strictures presents for routine catheter exchange. Modality: FluoroscopySedation: None Dean Of Graduate Studies: Gerald Baeza MD. Temporary Office Assistant: None. Approach: Bilateral flanks Estimated blood loss: [...] for performing radiologist and scrub technologist. A shear operator image images was obtained. Contrast was injected through the indwelling left percutaneous nephroureterostomy catheter confirming position. 2% lidocaine was used for local anesthesia. The indwelling catheter was cut and a 0.035 Bentson wire was advanced and coiled within the urinary bladder. The existing catheter was removed over wire and a new 8.5 Afghan by 22 cm nephroureterostomy was advanced over [...] was removed thewire and a new 10.2 Afghan pigtail catheter was advanced over wire with pigtail formed within the right renal pelvis. The catheter was fixed to the skin with silk suture and dressing was applied. The patient tolerated the procedure well without immediate complication. Impression: Successful fluoroscopic-guided left percutaneous nephroureterostomy and right percutaneous nephrostomy catheter exchange. Signed: Gerald Baeza MDReport Verified Date/Time: 02/24/2018 16:05:12 Reading Location: [address] Body Reading Room Electronically signed by: GERALD BAEZA MD on 2017 04:05 PMANG, NEPHROSTOMY TUBE CHANGE, [id number] 16:05:00Reason for Exam:->n13.30FINAL REPORT Left percutaneous nephroureterostomy and right percutaneous nephrostomy catheter exchange. History: 77-year-old female with history of ureteral strictures presents for routine catheter exchange. Modality: FluoroscopySedation: None Dean Of Graduate Studies: Gerald Baeza MD. Temporary Office Assistant: None. Approach: Bilateral flanks Estimated blood loss: [...] for performing radiologist and scrub technologist. A shear operator image images was obtained. Contrast was injected through the indwelling left percutaneous nephroureterostomy catheter confirming position. 2% lidocaine was used for local anesthesia. The indwelling catheter was cut and a 0.035 Bentson wire was advanced and coiled within the urinary bladder. The existing catheter was removed over wire and a new 8.5 Afghan by 22 cm nephroureterostomy was advanced over [...] was removed thewire and a new 10.2 Afghan pigtail catheter was advanced over wire with pigtail formed within the right renal pelvis. The catheter was fixed to the skin with silk suture and dressing was applied. The patient tolerated the procedure well without immediate complication. Impression: Successful fluoroscopic-guided left percutaneous nephroureterostomy and right percutaneous nephrostomy catheter exchange. Signed: Gerald Baeza MDReport Verified Date/Time: 02/24/2018 16:05:12 Reading Location: [facility] P048 Angio Body Reading Room Electronically signed by: GERALD BAEZA MD on 2017 04:05 PMANG, NEPHROSTOMY TUBE CHANGE, [id number] 17:02:00Reason for exam:->ABDOMINAL PAIN, flank pain, blockageFINAL [...] removed over a Bentsonwire. A new 10.2 Afghan pigtail nephrostomy catheter was placed over the [...] Verified Date/Time : 12/29/2017 17:02:02 Reading Location: [place] [address] Angio Body Reading Room URINE [id number] 12:00:00 Test Item Value Reference Range Comments CULTURE (BEAKER) (test xapk=9740) >100,000 col/mL skin thomas URINALYSIS W/ [id number] 10:15:00 Test Item Value Reference Range Comments COLOR (BEAKER) (test zlgt=971) [place] CLARITY (BEAKER) (test vmhn=547) Cloudy SPECIFIC GRAVITY UA (BEAKER) (test 1.021 1.001-1.035 krec=182) PH UA (BEAKER) (test gaew=758) 8.5 5.0-8.0 PROTEIN UA (BEAKER) (test bgkg=075) >600 mg/dL Negative GLUCOSE UA (BEAKER) (test nlzt=873) Negative Negative KETONES UA (BEAKER) (test ywnz=215) Negative Negative BILIRUBIN UA (BEAKER) (test lohg=934) Positive Negative BLOOD UA (BEAKER) (test clyu=649) Negative Negative NITRITE UA (BEAKER) (test gbsu=239) Positive Negative LEUKOCYTE ESTERASE UA (BEAKER) (test Small Negative glag=575) UROBILINOGEN UA (BEAKER) (test bxzf=457) 2.0 mg/dL 0.2-1.0 RBC UA (BEAKER) (test yayu=735) 0 /HPF WBC UA (BEAKER) (test scwf=355) 94 /HPF MUCUS (BEAKER) (test gjey=2045) Occasional TRIPLE PHOSPHATE CRYSTALS (BEAKER) (test Moderate faff=4487) SOURCE(BEAKER) (test lvhp=2116) Urine, Nephrostomy BASIC METABOLIC [id number] 10:04:00 Test Item Value Reference Range Comments SODIUM (BEAKER) (test 137 meq/L 136-145 hpwa=934) POTASSIUM (BEAKER) (test 5.0 meq/L 3.5-5.1 qjqw=510) CHLORIDE (BEAKER) (test 104 meq/L 98-107 fbhs=911) CO2 (BEAKER) (test 25 meq/L 22-29 ktfz=458) BLOOD UREA NITROGEN 39 mg/dL 7-21 (BEAKER) (test ugnz=336) CREATININE (BEAKER) (test 1.13 mg/dL 0.57-1.25 llmi=932) GLUCOSE RANDOM (BEAKER) 127 mg/dL 70-105 (test qciz=429) CALCIUM (BEAKER) (test 9.0 mg/dL 8.4-10.2 edcg=036) EGFR (BEAKER) (test 47 mL/min/1.73 sq m ESTIMATED GFR IS NOT ubku=1206) ACCURATE CREATININE CLEARANCE IN PREDICTING GLOMERULAR FILTRATION RATE. ESTIMATED GFR IS NOT APPLICABLE FOR DIALYSIS PATIENTS. [id number] 09:53:00 Test Item Value Reference Range Comments PROTIME (BEAKER) (test omek=079) 13.0 seconds 11.7-14.7 INR (BEAKER) (test srkr=194) 1.0 <=5.9 PARTIAL THROMBOPLASTIN TIME (BEAKER) (test 28.9 seconds 22.5-36.0 xmwz=252) RECOMMENDED COUMADIN/WARFARIN INR THERAPY RANGESSTANDARD DOSE: 2.0 - 3.0 Includes: PROPHYLAXIS forvenous thrombosis, systemic embolization; TREATMENT for venous thrombosis and/or pulmonary embolus.HIGH RISK: Target INR is 2.5-3.5 for patients with mechanical heart valves.CBC W/PLT COUNT & AUTO [id number] 09:52:00 Test Item Value Reference Range Comments WHITE BLOOD CELL COUNT (BEAKER) (test kiym=623) 10.4 K/ L 3.5-10.5 RED BLOOD CELL COUNT (BEAKER) (test ibeo=214) 3.48 M/ L 3.93-5.22 HEMOGLOBIN (BEAKER) (test hubj=477) 10.8 GM/DL 11.2-15.7 HEMATOCRIT (BEAKER) (test rvcz=673) 34.4 % 34.1-44.9 MEAN CORPUSCULAR VOLUME (BEAKER) (test jvzc=285) 98.9 fL 79.4-94.8 MEAN CORPUSCULAR HEMOGLOBIN (BEAKER) (test 31.0 pg 25.6-32.2 dton=350) MEAN CORPUSCULAR HEMOGLOBIN CONC (BEAKER) (test 31.4 GM/DL 32.2-35.5 ixpj=897) RED CELL DISTRIBUTION WIDTH (BEAKER) (test 14.0 % 11.7-14.4 czge=331) PLATELET COUNT (BEAKER) (test dhxw=917) 255 K/CU MM 150-450 MEAN PLATELET VOLUME (BEAKER) (test sfjz=071) 10.6 fL 9.4-12.3 NUCLEATED RED BLOOD CELLS (BEAKER) (test 0 /100 WBC 0-0 vejr=346) NEUTROPHILS RELATIVE PERCENT (BEAKER) (test 82 % zavj=960) LYMPHOCYTES RELATIVE PERCENT (BEAKER) (test 9 % vspt=711) MONOCYTES RELATIVE PERCENT (BEAKER) (test 8 % hfge=874) EOSINOPHILS RELATIVE PERCENT (BEAKER) (test 1 % ykbv=029) BASOPHILS RELATIVE PERCENT (BEAKER) (test 0 % ilub=408) NEUTROPHILS ABSOLUTE COUNT (BEAKER) (test 8.58 K/ L 1.56-6.13 seyc=847) LYMPHOCYTES ABSOLUTE COUNT (BEAKER) (test 0.95 K/ L 1.18-3.74 qlqf=309) MONOCYTES ABSOLUTE COUNT (BEAKER) (test 0.79 K/ L 0.24-0.36 jdst=436) EOSINOPHILS ABSOLUTE COUNT (BEAKER) (test 0.05 K/ L 0.04-0.36 jflc=858) BASOPHILS ABSOLUTE COUNT (BEAKER) (test 0.02 K/ L 0.01-0.08 qhet=952) IMMATURE GRANULOCYTES-RELATIVE PERCENT (BEAKER) 0 % 0-1 (test esdd=9745) URINE [id number] 09:49:00 Test Item Value Reference Range Comments CULTURE (BEAKER) (test kxmo=6126) Amikacin (test code=1) Susceptible 0-16 , Resistant <0 or >16 Aztreonam (test code=32) Susceptible 0-8 , Resistant <0 or >8 Cefepime (test code=51) Susceptible 0-8 , Resistant <0 or >8 Ceftazidime (test code=27) Susceptible 0-8 , Resistant <0 or >8 Ciprofloxacin (test code=7) Susceptible 0-1 , Resistant <0 or >1 Doripenem (test eruy=836) Susceptible 0-2 , Resistant <0 or >2 [...] or >4 CULTURE (BEAKER) (test 80-89,000 col/mL yrzi=0786) Pseudomonas aeruginosa >100,000 col/mL skin floraANG, NEPHROSTOMY TUBE CHANGE, [id number] 09:10: 00Reason for exam:->ABDOMINAL PAINFINAL REPORT Fluoroscopic guided bilateral nephrostomy tube exchange ClinicalHistory: Abdominal pain, bilateral percutaneous nephrostomy catheter. Modality: Sonography and fluoroscopy Dean Of Graduate Studies: Star Brown MD. Temporary Office Assistant : None.. SEDATION: None. Estimated Blood Loss: [...] catheter into the bladder. A new 8.5 Afghan by 24 cm nephroureteral catheter was placed. [...] catheter into the bladder. A new 10 Afghan pigtail catheter was placed. The wire was [...] Impression: 1. Uncomplicated exchange of left 8.5 Afghan by 24 cm nephroureteral catheter. 2. Uncomplicated exchange of right 10 Afghan percutaneous nephrostomy catheter. Signed: Star Brown MDReportVerified Date/Time: 12/14/2017 09:10:40 Reading Location: [facility] C013Y CT Body Reading Room Electronically signed by: STAR BROWN MD on 10/2018 09:10 AMANG, NEPHROSTOMY TUBE CHANGE, [id number] 09:10:00Reason for exam:->ABDOMINAL PAINFINAL REPORT Fluoroscopic guided bilateral nephrostomy tube exchange ClinicalHistory: Abdominal pain, bilateral percutaneous nephrostomy catheter. Modality: Sonography and fluoroscopy Dean Of Graduate Studies: Star Brown MD. Temporary Office Assistant: None.. SEDATION: None. Estimated Blood Loss: Less [...] catheter into the bladder. A new 8.5 Afghan by 24 cm nephroureteral catheter was placed. [...] catheter into the bladder. A new 10 Afghan pigtail catheter was placed. The wire was [...] Impression: 1. Uncomplicated exchange of left 8.5 Afghan by 24 cm nephroureteral catheter. 2. Uncomplicated exchange of right 10 Afghan percutaneous nephrostomy catheter. Signed: Star Brown MDReportVerified Date/Time: 12/14/2017 09:10:40 Reading Location: [facility] C013Y CT Body Reading Room Electronically signed by: STAR BROWN MD on 10/2018 09:10 [facility] W/PLT COUNT & AUTO [id number] 15:37:00 Test Item Value Reference Range Comments WHITE BLOOD CELL COUNT (BEAKER) (test pgje=834) 11.1 K/ L 3.5-10.5 RED BLOOD CELL COUNT (BEAKER) (test mikg=135) 3.52 M/ L 3.93-5.22 HEMOGLOBIN (BEAKER) (test xxkv=461) 11.2 GM/DL 11.2-15.7 HEMATOCRIT (BEAKER) (test lcdp=260) 35.3 % 34.1-44.9 MEAN CORPUSCULAR VOLUME (BEAKER) (test ncav=434) 100.3 fL 79.4-94.8 MEAN CORPUSCULAR HEMOGLOBIN (BEAKER) (test 31.8 pg 25.6-32.2 ogoc=222) MEAN CORPUSCULAR HEMOGLOBIN CONC (BEAKER) (test 31.7 GM/DL 32.2-35.5 zbje=562) RED CELL DISTRIBUTION WIDTH (BEAKER) (test 13.2 % 11.7-14.4 ubje=471) PLATELET COUNT (BEAKER) (test bivb=965) 353 K/CU MM 150-450 MEAN PLATELET VOLUME (BEAKER) (test jyft=181) 10.6 fL 9.4-12.3 NUCLEATED RED BLOOD CELLS (BEAKER) (test 0 /100 WBC 0-0 fyfb=784) NEUTROPHILS RELATIVE PERCENT (BEAKER) (test 83 % ofob=695) LYMPHOCYTES RELATIVE PERCENT (BEAKER) (test 8 % xchw=179) MONOCYTES RELATIVE PERCENT (BEAKER) (test 8 % vaqi=428) EOSINOPHILS RELATIVE PERCENT (BEAKER) (test 1 % neie=099) BASOPHILS RELATIVE PERCENT (BEAKER) (test 0 % ophr=277) NEUTROPHILS ABSOLUTE COUNT (BEAKER) (test 9.20 K/ L 1.56-6.13 wekl=597) LYMPHOCYTES ABSOLUTE COUNT (BEAKER) (test 0.87 K/ L 1.18-3.74 fivt=577) MONOCYTES ABSOLUTE COUNT (BEAKER) (test 0.91 K/ L 0.24-0.36 ubdj=154) EOSINOPHILS ABSOLUTE COUNT (BEAKER) (test 0.07 K/ L 0.04-0.36 nziq=437) BASOPHILS ABSOLUTE COUNT (BEAKER) (test 0.03 K/ L 0.01-0.08 bbmn=674) IMMATURE GRANULOCYTES-RELATIVE PERCENT (BEAKER) 1 % 0-1 (test llpk=1700) BASIC METABOLIC [id number] 15:27:00 Test Item Value Reference Range Comments SODIUM (BEAKER) (test 132 meq/L 136-145 eiqq=580) POTASSIUM (BEAKER) (test 5.1 meq/L 3.5-5.1 mpoe=474) CHLORIDE (BEAKER) (test 99 meq/L 98-107 yzdj=916) CO2 (BEAKER) (test 24 meq/L 22-29 mepp=939) BLOOD UREA NITROGEN 36 mg/dL 7-21 (BEAKER) (test fsyx=047) CREATININE (BEAKER) (test 1.25 mg/dL 0.57-1.25 ezcp=661) GLUCOSE RANDOM (BEAKER) 117 mg/dL 70-105 (test ulhe=840) CALCIUM (BEAKER) (test 9.4 mg/dL 8.4-10.2 tuws=337) EGFR (BEAKER) (test 42 mL/min/1.73 sq m ESTIMATED GFR IS NOT zhwt=6163) ACCURATE CREATININE CLEARANCE IN PREDICTING GLOMERULAR FILTRATION RATE. ESTIMATED GFR IS NOT APPLICABLE FOR DIALYSIS PATIENTS. URINALYSIS W/ [id number] 15:22:00 Test Item Value Reference Range Comments COLOR (BEAKER) (test kzxw=710) Light Yellow CLARITY (BEAKER) (test kikb=392) Hazy SPECIFIC GRAVITY UA (BEAKER) (test 1.007 1.001-1.035 gfkm=745) PH UA (BEAKER) (test wlwx=451) 5.5 5.0-8.0 PROTEIN UA (BEAKER) (test beju=990) 50 mg/dL Negative GLUCOSE UA (BEAKER) (test xmzz=993) Negative Negative KETONES UA (BEAKER) (test wkpj=233) Negative Negative BILIRUBIN UA (BEAKER) (test amly=543) Negative Negative BLOOD UA (BEAKER) (test bpzj=150) Small Negative NITRITE UA (BEAKER) (test eqoc=101) Positive Negative LEUKOCYTE ESTERASE UA (BEAKER) (test Large Negative bynt=063) UROBILINOGEN UA (BEAKER) (test sewg=675) 0.2 mg/dL 0.2-1.0 RBC UA (BEAKER) (test cvty=869) 22 /HPF WBC UA (BEAKER) (test luhc=044) 24 /HPF MUCUS (BEAKER) (test tlso=7349) Rare SQUAMOUS EPITHELIAL (BEAKER) (test < /HPF dghd=714) HYALINE CASTS (BEAKER) (test ljys=757) 2 /LPF SOURCE(BEAKER) (test ztcl=0999) Urine, Nephrostomy ANG, NEPHROSTOMY TUBE CHANGE, [id number] 18:37:00Reason for Exam:-> N13.30FINAL REPORT Procedure: Replacement [...] guidewire and replaced with a fresh 8.5 Afghan device with its tip in the renal pelvis. Approximately 80 cc of urine were removed. The left nephroureteral stent was removed over guidewire and a fresh 8.5 Afghan by 24 cm nephroureteral stent placed with itstip in the bladder. Contrast was injected into each of the nephrostomy catheters confirming satisfactory positioning. CONCLUSION: Replacement of bilateral nephrostomy catheters. Signed: Tha Cheung MDReport Verified Date/Time: 11/19 18:37:20 Reading Location: [place] [address] Angio Body Reading Room ANG, NEPHROSTOMY TUBE CHANGE, [id number] 15:09:00Reason for exam:->FLANK PAINFINAL REPORT Exam: Right [...] tube was exchanged for a new 8.5 Afghan nephrostomy tube with the tip advanced to [...] [place] Verified Date/Time: 10/31/2017 15:09:40 Reading Location: [facility] P048 Angio Body Reading Room RAD, ABDOMEN, 2 OR MORE [id number] 14:41:00Reason for exam:->FLANK PAINFINAL REPORT Four views [...] Verified Date/ Time: 10/31/2017 14:41:15 Reading Location: [facility] [id number] Consult Reading Room BASIC METABOLIC [id number] 12:03:00 Test Item Value Reference Range Comments SODIUM (BEAKER) (test 139 meq/L 136-145 jhbz=901) POTASSIUM (BEAKER) (test 4.8 meq/L 3.5-5.1 hbeb=539) CHLORIDE (BEAKER) (test 106 meq/L 98-107 fxnb=187) CO2 (BEAKER) (test 22 meq/L 22-29 rghp=276) BLOOD UREA NITROGEN 34 mg/dL 7-21 (BEAKER) (test jins=980) CREATININE (BEAKER) (test 1.03 mg/dL 0.57-1.25 ebah=508) GLUCOSE RANDOM (BEAKER) 163 mg/dL 70-105 (test dqzm=517) CALCIUM (BEAKER) (test 9.5 mg/dL 8.4-10.2 bbie=952) EGFR (BEAKER) (test 52 mL/min/1.73 sq m ESTIMATED GFR IS NOT epki=3046) ACCURATE CREATININE CLEARANCE IN PREDICTING GLOMERULAR FILTRATION RATE. ESTIMATED GFR IS NOT APPLICABLE FOR DIALYSIS PATIENTS. CBC W/PLT COUNT & AUTO [id number] 11:30:00 Test Item Value Reference Range Comments WHITE BLOOD CELL COUNT (BEAKER) (test bewe=458) 9.1 K/ L 3.5-10.5 RED BLOOD CELL COUNT (BEAKER) (test ebxv=650) 3.56 M/ L 3.93-5.22 HEMOGLOBIN (BEAKER) (test xkia=302) 11.3 GM/DL 11.2-15.7 HEMATOCRIT (BEAKER) (test fvdm=421) 35.6 % 34.1-44.9 MEAN CORPUSCULAR VOLUME (BEAKER) (test pzht=409) 100.0 fL 79.4-94.8 MEAN CORPUSCULAR HEMOGLOBIN (BEAKER) (test 31.7 pg 25.6-32.2 atkx=340) MEAN CORPUSCULAR HEMOGLOBIN CONC (BEAKER) (test 31.7 GM/DL 32.2-35.5 cgzp=019) RED CELL DISTRIBUTION WIDTH (BEAKER) (test 14.3 % 11.7-14.4 alud=693) PLATELET COUNT (BEAKER) (test gvqa=518) 323 K/CU MM 150-450 MEAN PLATELET VOLUME (BEAKER) (test xjpo=026) 10.1 fL 9.4-12.3 NUCLEATED RED BLOOD CELLS (BEAKER) (test 0 /100 WBC 0-0 fkoa=801) NEUTROPHILS RELATIVE PERCENT (BEAKER) (test 86 % euki=347) LYMPHOCYTES RELATIVE PERCENT (BEAKER) (test 9 % oqxz=102) MONOCYTES RELATIVE PERCENT (BEAKER) (test 5 % fafd=213) EOSINOPHILS RELATIVE PERCENT (BEAKER) (test 0 % xoat=459) BASOPHILS RELATIVE PERCENT (BEAKER) (test 0 % edyh=822) NEUTROPHILS ABSOLUTE COUNT (BEAKER) (test 7.75 K/ L 1.56-6.13 ayep=186) LYMPHOCYTES ABSOLUTE COUNT (BEAKER) (test 0.78 K/ L 1.18-3.74 notk=004) MONOCYTES ABSOLUTE COUNT (BEAKER) (test 0.47 K/ L 0.24-0.36 auhg=903) EOSINOPHILS ABSOLUTE COUNT (BEAKER) (test 0.00 K/ L 0.04-0.36 kugg=967) BASOPHILS ABSOLUTE COUNT (BEAKER) (test 0.02 K/ L 0.01-0.08 wggv=851) IMMATURE GRANULOCYTES-RELATIVE PERCENT (BEAKER) 0 % 0-1 (test gigc=0551) [id number] 11:17:00 Test Item Value Reference Range Comments PROTIME (BEAKER) (test kdwb=726) 14.4 seconds 11.7-14.7 INR (BEAKER) (test hzoi=501) 1.1 <=5.9 PARTIAL THROMBOPLASTIN TIME (BEAKER) (test 31.3 seconds 22.5-36.0 bjtk=418) RECOMMENDED COUMADIN/WARFARIN INR THERAPY RANGESSTANDARD DOSE: 2.0 - 3.0 Includes: PROPHYLAXIS forvenous thrombosis, systemic embolization; TREATMENT for venous thrombosis and/or pulmonary embolus.HIGH RISK: Target INR is 2.5-3.5 for patients with mechanical heart valves.BLOOD [id number] 11:00:00 Test Item Value Reference Range Comments CULTURE (BEAKER) (test ghec=9172) No growth in 5 days BLOOD [id number] 11:00:00 Test Item Value Reference Range Comments CULTURE (BEAKER) (test gqgi=8975) No growth in 5 days URINE [id number] 10:04:00 Test Item Value Reference Range Comments CULTURE (BEAKER) (test fuxc=5030) See comment >100,000 col/mL enteric organisms of >3 types including Pseudomonas species. No further workupperformed. Multiple organisms suggestive of colonization or contamination. Repeat collection recommended.URINE [id number] 13:38:00 Test Item Value Reference Range Comments CULTURE (BEAKER) (test cubv=9715) >100,000 col/mL skin thomas POCT-GLUCOSE [id number] 12:45:00 Test Item Value Reference Range Comments POC-GLUCOSE METER (BEAKER) 120 mg/dL 70-110 TESTED AT [place] [id number] [facility] (test evko=5016) [facility] [address] POCT-GLUCOSE [id number] 07:39:00 Test Item Value Reference Range Comments POC-GLUCOSE METER (BEAKER) 80 mg/dL 70-110 TESTED AT [address] (test ztdp=0286) [facility] [address] CBC W/PLT COUNT & AUTO [id number] 06:22:00 Test Item Value Reference Range Comments WHITE BLOOD CELL COUNT (BEAKER) (test vstm=182) 12.7 K/ L 3.5-10.5 RED BLOOD CELL COUNT (BEAKER) (test isko=575) 3.13 M/ L 3.93-5.22 HEMOGLOBIN (BEAKER) (test dmhh=018) 10.0 GM/DL 11.2-15.7 HEMATOCRIT (BEAKER) (test jesh=247) 31.2 % 34.1-44.9 MEAN CORPUSCULAR VOLUME (BEAKER) (test wbne=130) 99.7 fL 79.4-94.8 MEAN CORPUSCULAR HEMOGLOBIN (BEAKER) (test 31.9 pg 25.6-32.2 btpu=463) MEAN CORPUSCULAR HEMOGLOBIN CONC (BEAKER) (test 32.1 GM/DL 32.2-35.5 mose=916) RED CELL DISTRIBUTION WIDTH (BEAKER) (test 14.4 % 11.7-14.4 pjyb=530) PLATELET COUNT (BEAKER) (test opmq=562) 239 K/CU MM 150-450 MEAN PLATELET VOLUME (BEAKER) (test gqdp=953) 10.5 fL 9.4-12.3 NUCLEATED RED BLOOD CELLS (BEAKER) (test 0 /100 WBC 0-0 umxk=117) NEUTROPHILS RELATIVE PERCENT (BEAKER) (test 81 % prug=194) LYMPHOCYTES RELATIVE PERCENT (BEAKER) (test 7 % kmfq=208) MONOCYTES RELATIVE PERCENT (BEAKER) (test 9 % gvvp=827) EOSINOPHILS RELATIVE PERCENT (BEAKER) (test 1 % pbmy=233) BASOPHILS RELATIVE PERCENT (BEAKER) (test 0 % oadd=589) NEUTROPHILS ABSOLUTE COUNT (BEAKER) (test 10.34 K/ L 1.56-6.13 jmtq=133) LYMPHOCYTES ABSOLUTE COUNT (BEAKER) (test 0.94 K/ L 1.18-3.74 rutb=305) MONOCYTES ABSOLUTE COUNT (BEAKER) (test 1.18 K/ L 0.24-0.36 dpff=005) EOSINOPHILS ABSOLUTE COUNT (BEAKER) (test 0.11 K/ L 0.04-0.36 ylvd=769) BASOPHILS ABSOLUTE COUNT (BEAKER) (test 0.03 K/ L 0.01-0.08 lkjr=728) IMMATURE GRANULOCYTES-RELATIVE PERCENT (BEAKER) 1 % 0-1 (test isky=4563) [id number] 05:46:00 Test Item Value Reference Range Comments MAGNESIUM (BEAKER) (test xpai=101) 1.4 mg/dL 1.6-2.6 BASIC METABOLIC [id number] 05:46:00 Test Item Value Reference Range Comments SODIUM (BEAKER) (test 135 meq/L 136-145 pnux=225) POTASSIUM (BEAKER) (test 3.8 meq/L 3.5-5.1 oehh=981) CHLORIDE (BEAKER) (test 104 meq/L 98-107 jtxr=602) CO2 (BEAKER) (test 24 meq/L 22-29 epdh=664) BLOOD UREA NITROGEN 29 mg/dL 7-21 (BEAKER) (test obnr=942) CREATININE (BEAKER) (test 1.00 mg/dL 0.57-1.25 yfkb=279) GLUCOSE RANDOM (BEAKER) 94 mg/dL 70-105 (test jofy=913) CALCIUM (BEAKER) (test 8.4 mg/dL 8.4-10.2 aajz=683) EGFR (BEAKER) (test 54 mL/min/1.73 sq m ESTIMATED GFR IS NOT splb=2717) ACCURATE CREATININE CLEARANCE IN PREDICTING GLOMERULAR FILTRATION RATE. ESTIMATED GFR IS NOT APPLICABLE FOR DIALYSIS PATIENTS. POCT-GLUCOSE [id number] 21:07:00 Test Item Value Reference Range Comments POC-GLUCOSE METER (BEAKER) 170 mg/dL 70-110 TESTED AT [facility] [address] (test anab=1195) [facility] [address] ANG, NEPHROSTOMY TUBE CHANGE, [id number] 20:09:00FINAL REPORT Right nephrostomy catheter exchange. History: [...] the patient's medical record by the nurse. Dean Of Graduate Studies: Gerald Baeza MD. Temporary Office Assistant: MD Ulysses ( Fellow) Approach: Indwelling right [...] 2% lidocaine was used for local anesthesia. Electrical Laboratory Technician images were obtained demonstrating right nephrostomy catheter retracted to a renal calyx. The indwelling tube was cut and a 0.035 wire was advanced into the right renal pelvis. The existing catheter was removed over wire and a new 8.5 [place] percutaneous nephrostomy catheter was advanced over wire with pigtail formed within the renal pelvis. There was immediate return of urine. Contrast injection confirmed position. The catheter was fixed tothe skin with silk suture. A sterile dressing was applied. The patient tolerated procedure well without immediate complication. IMPRESSION: Successful right percutaneous nephrostomy catheter exchange. Signed: Gerald Baeza MDReport Verified Date/Time: 08/06/2017 20:09:03 Reading Location: [place] [address] Angio Body Reading Room Electronically signed by: GERALD BAEZA MD on 2016 08:09 PMURINALYSIS W/ [id number] 19:55:00 Test Item Value Reference Range Comments COLOR (BEAKER) (test knla=821) Brittaney CLARITY (BEAKER) (test qpaf=371) Cloudy SPECIFIC GRAVITY UA (BEAKER) (test 1.016 1.001-1.035 kmkl=932) PH UA (BEAKER) (test kaxu=320) 8.0 5.0-8.0 PROTEIN UA (BEAKER) (test oukd=975) 300 mg/dL Negative GLUCOSE UA (BEAKER) (test pqto=354) Negative Negative KETONES UA (BEAKER) (test jsgz=536) Negative Negative BILIRUBIN UA (BEAKER) (test wkxf=178) Negative Negative BLOOD UA (BEAKER) (test ljii=613) Large Negative NITRITE UA (BEAKER) (test hzjq=196) Negative Negative LEUKOCYTE ESTERASE UA (BEAKER) (test Large Negative ojdy=159) UROBILINOGEN UA (BEAKER) (test qlno=367) 0.2 mg/dL 0.2-1.0 RBC UA (BEAKER) (test pcly=777) > /HPF WBC UA (BEAKER) (test ijng=705) > /HPF MUCUS (BEAKER) (test jtwj=3658) Rare SOURCE(BEAKER) (test opyg=0006) Urine, Nephrostomy POCT-GLUCOSE [id number] 12:58:00 Test Item Value Reference Range Comments POC-GLUCOSE METER (BEAKER) 131 mg/dL 70-110 TESTED AT [address] (test pxeo=0155) [place] [id number] HEMOGLOBIN [id number] 09:30:00 Test Item Value Reference Range Comments HEMOGLOBIN A1C (BEAKER) (test mnqq=114) 5.7 % 4.3-6.1 POCT-GLUCOSE [id number] 07:08:00 Test Item Value Reference Range Comments POC-GLUCOSE METER (BEAKER) 137 mg/dL 70-110 TESTED AT [address] (test peio=0809) [facility] [id number] [id number] 04:00:00 Test Item Value Reference Range Comments PROTIME (BEAKER) (test aufc=492) 13.4 seconds 11.7-14.7 INR (BEAKER) (test gfah=227) 1.0 <=5.9 PARTIAL THROMBOPLASTIN TIME (BEAKER) (test 30.1 seconds 22.5-36.0 vutt=666) RECOMMENDED COUMADIN/WARFARIN INR THERAPY RANGESSTANDARD DOSE: 2.0 - 3.0 Includes: PROPHYLAXIS forvenous thrombosis, systemic embolization; TREATMENT for venous thrombosis and/or pulmonary embolus.HIGH RISK: Target INR is 2.5-3.5 for patients with mechanical heart valves.U/S, RENAL, [id number] 03:58: 00Abdomen limited area? Add comment if [...] Verified Date/Time: 08/06/2017 03:58: 39 Reading Location: [address] Consult Reading Room URINALYSIS W / [id number] 01:01:00 Test Item Value Reference Range Comments COLOR (BEAKER) (test rqdd=807) Light Yellow CLARITY (BEAKER) (test mqru=425) Hazy SPECIFIC GRAVITY UA (BEAKER) (test hfis=301) 1.011 1.001-1.035 PH UA (BEAKER) (test gpur=162) 7.0 5.0-8.0 PROTEIN UA (BEAKER) (test rbqz=596) 200 mg/dL Negative GLUCOSE UA (BEAKER) (test uxyv=650) Negative Negative KETONES UA (BEAKER) (test ohqu=011) Negative Negative BILIRUBIN UA (BEAKER) (test jrsa=201) Negative Negative BLOOD UA (BEAKER) (test umkr=569) Moderate Negative NITRITE UA (BEAKER) (test cllg=658) Negative Negative LEUKOCYTE ESTERASE UA (BEAKER) (test iwbc=145) Moderate Negative UROBILINOGEN UA (BEAKER) (test iolg=206) 0.2 mg/dL 0.2-1.0 RBC UA (BEAKER) (test mewk=943) 22 /HPF WBC UA (BEAKER) (test olhm=544) 26 /HPF BACTERIA (BEAKER) (test ppsf=952) Occasional MUCUS (BEAKER) (test hhmn=2736) Rare SQUAMOUS EPITHELIAL (BEAKER) (test ugak=924) < /HPF HYALINE CASTS (BEAKER) (test ldja=966) 6 /LPF TRIPLE PHOSPHATE CRYSTALS (BEAKER) (test Rare uywp=8767) AMORPHOUS CRYSTALS (BEAKER) (test ygte=9472) Rare SOURCE(BEAKER) (test emns=5926) Urine, Voided [id number] 23:21:00 Test Item Value Reference Range Comments LIPASE (BEAKER) (test soda=480) 31 U/L 8-78 [id number] 23:21:00 Test Item Value Reference Range Comments AMYLASE (BEAKER) (test djbf=577) 71 U/L 25-125 BASIC METABOLIC [id number] 23:21:00 Test Item Value Reference Range Comments SODIUM (BEAKER) (test 139 meq/L 136-145 zetl=633) POTASSIUM (BEAKER) (test 3.8 meq/L 3.5-5.1 gyyh=249) CHLORIDE (BEAKER) (test 104 meq/L 98-107 dokv=785) CO2 (BEAKER) (test 22 meq/L 22-29 pcco=324) BLOOD UREA NITROGEN 29 mg/dL 7-21 (BEAKER) (test nirl=172) CREATININE (BEAKER) (test 1.01 mg/dL 0.57-1.25 zzdr=795) GLUCOSE RANDOM (BEAKER) 104 mg/dL 70-105 (test rqfx=493) CALCIUM (BEAKER) (test 9.2 mg/dL 8.4-10.2 fkwr=918) EGFR (BEAKER) (test 54 mL/min/1.73 sq m ESTIMATED GFR IS NOT wjpw=7396) ACCURATE CREATININE CLEARANCE IN PREDICTING GLOMERULAR FILTRATION RATE. ESTIMATED GFR IS NOT APPLICABLE FOR DIALYSIS PATIENTS. HEPATIC FUNCTION [id number] 23:21:00 Test Item Value Reference Range Comments TOTAL PROTEIN (BEAKER) (test ywux=475) 7.3 gm/dL 6.0-8.3 ALBUMIN (BEAKER) (test rexg=4420) 3.5 g/dL 3.5-5.0 BILIRUBIN TOTAL (BEAKER) (test autx=389) < mg/dL 0.2-1.2 BILIRUBIN DIRECT (BEAKER) (test swkn=747) 0.1 mg/dL 0.1-0.5 ALKALINE PHOSPHATASE (BEAKER) (test diyr=505) 92 U/L 40-150 AST (SGOT) (BEAKER) (test sjnh=834) 17 U/L 5-34 ALT (SGPT) (BEAKER) (test luso=935) 12 U/L 6-55 CBC W/PLT COUNT & AUTO [id number] 23:15:00 Test Item Value Reference Range Comments WHITE BLOOD CELL COUNT (BEAKER) (test grto=189) 13.0 K/ L 3.5-10.5 RED BLOOD CELL COUNT (BEAKER) (test albb=692) 3.64 M/ L 3.93-5.22 HEMOGLOBIN (BEAKER) (test nufl=350) 11.6 GM/DL 11.2-15.7 HEMATOCRIT (BEAKER) (test tzcn=976) 36.0 % 34.1-44.9 MEAN CORPUSCULAR VOLUME (BEAKER) (test kciz=685) 98.9 fL 79.4-94.8 MEAN CORPUSCULAR HEMOGLOBIN (BEAKER) (test 31.9 pg 25.6-32.2 nsrl=692) MEAN CORPUSCULAR HEMOGLOBIN CONC (BEAKER) (test 32.2 GM/DL 32.2-35.5 coio=225) RED CELL DISTRIBUTION WIDTH (BEAKER) (test 13.7 % 11.7-14.4 qbth=050) PLATELET COUNT (BEAKER) (test mgps=545) 284 K/CU MM 150-450 MEAN PLATELET VOLUME (BEAKER) (test dsdv=316) 9.7 fL 9.4-12.3 NUCLEATED RED BLOOD CELLS (BEAKER) (test 0 /100 WBC 0-0 iews=990) NEUTROPHILS RELATIVE PERCENT (BEAKER) (test 80 % muht=475) LYMPHOCYTES RELATIVE PERCENT (BEAKER) (test 10 % muvz=389) MONOCYTES RELATIVE PERCENT (BEAKER) (test 7 % xczm=952) EOSINOPHILS RELATIVE PERCENT (BEAKER) (test 2 % zmur=074) BASOPHILS RELATIVE PERCENT (BEAKER) (test 0 % vcae=779) NEUTROPHILS ABSOLUTE COUNT (BEAKER) (test 10.38 K/ L 1.56-6.13 wrjy=507) LYMPHOCYTES ABSOLUTE COUNT (BEAKER) (test 1.27 K/ L 1.18-3.74 iaat=207) MONOCYTES ABSOLUTE COUNT (BEAKER) (test 0.95 K/ L 0.24-0.36 cvqg=209) EOSINOPHILS ABSOLUTE COUNT (BEAKER) (test 0.26 K/ L 0.04-0.36 sbvk=439) BASOPHILS ABSOLUTE COUNT (BEAKER) (test 0.05 K/ L 0.01-0.08 jafq=278) IMMATURE GRANULOCYTES-RELATIVE PERCENT (BEAKER) 0 % 0-1 (test cskw=8697) ANG, NEPHROSTOMY TUBE CHANGE, [id number] 11:25:00Reason for exam:->BACK PAINReason for exam:->FINAL REPORT Exchange of right percutaneous nephrostomy tube and left percutaneous nephroureteral stent. History: Back pain. Patient presented to the emergency department with a decreased drainage from the right nephrostomy catheter. Modality: Fluoroscopy Sedation: None Dean Of Graduate Studies: Star Georges MD. Temporary Office Assistant: None. Approach: ] Is approximately catheter and [...] exchanged over guidewire for a new 8.5 Afghan nephrostomy catheter. After the new catheter was placed contrast was injected which confirmed proper positioning. The catheter isin superior the patient's skin with 2-0 silk and connected to gravity drainage bag. The left nephroureteral stent was then exchanged over guidewire for a new 8.5 Afghan by 22 cm nephroureteral stent. The distal [...] Verified Date/Time: 07/08/2017 11:25: 07 Reading Location: [place] [address] Angio Body Reading Room URINALYSIS W/ [id number] 09:16:00 Test Item Value Reference Range Comments COLOR (BEAKER) (test ubhe=587) Yellow CLARITY (BEAKER) (test pjbz=153) Hazy SPECIFIC GRAVITY UA (BEAKER) (test 1.018 1.001-1.035 leqd=299) PH UA (BEAKER) (test ngep=594) 7.5 5.0-8.0 PROTEIN UA (BEAKER) (test ltqu=217) 300 mg/dL Negative GLUCOSE UA (BEAKER) (test kdgq=269) Negative Negative KETONES UA (BEAKER) (test khul=960) Negative Negative BILIRUBIN UA (BEAKER) (test qfxo=434) Negative Negative BLOOD UA (BEAKER) (test amwj=100) Small Negative NITRITE UA (BEAKER) (test ntik=775) Negative Negative LEUKOCYTE ESTERASE UA (BEAKER) (test Moderate Negative fuun=700) UROBILINOGEN UA (BEAKER) (test jmyf=133) 0.2 mg/dL 0.2-1.0 RBC UA (BEAKER) (test xjaq=995) > /HPF WBC UA (BEAKER) (test dawq=625) > /HPF SQUAMOUS EPITHELIAL (BEAKER) (test 1 /HPF mutu=691) SOURCE(BEAKER) (test hgct=8316) Urine, Nephrostomy CBC W/PLT COUNT & AUTO [id number] 08:56:00 Test Item Value Reference Range Comments WHITE BLOOD CELL COUNT (BEAKER) (test vygx=802) 10.2 K/ L 3.5-10.5 RED BLOOD CELL COUNT (BEAKER) (test bzns=103) 3.40 M/ L 3.93-5.22 HEMOGLOBIN (BEAKER) (test nchv=343) 10.9 GM/DL 11.2-15.7 HEMATOCRIT (BEAKER) (test dmmc=508) 33.7 % 34.1-44.9 MEAN CORPUSCULAR VOLUME (BEAKER) (test fcaj=722) 99.1 fL 79.4-94.8 MEAN CORPUSCULAR HEMOGLOBIN (BEAKER) (test 32.1 pg 25.6-32.2 sgqc=993) MEAN CORPUSCULAR HEMOGLOBIN CONC (BEAKER) (test 32.3 GM/DL 32.2-35.5 zdqm=059) RED CELL DISTRIBUTION WIDTH (BEAKER) (test 15.2 % 11.7-14.4 hbom=239) PLATELET COUNT (BEAKER) (test gahk=872) 317 K/CU MM 150-450 MEAN PLATELET VOLUME (BEAKER) (test eytw=082) 9.8 fL 9.4-12.3 NUCLEATED RED BLOOD CELLS (BEAKER) (test 0 /100 WBC 0-0 sdev=295) NEUTROPHILS RELATIVE PERCENT (BEAKER) (test 79 % magz=556) LYMPHOCYTES RELATIVE PERCENT (BEAKER) (test 10 % nroe=851) MONOCYTES RELATIVE PERCENT (BEAKER) (test 9 % adom=962) EOSINOPHILS RELATIVE PERCENT (BEAKER) (test 2 % swji=253) BASOPHILS RELATIVE PERCENT (BEAKER) (test 0 % dqoe=575) NEUTROPHILS ABSOLUTE COUNT (BEAKER) (test 8.07 K/ L 1.56-6.13 hcdj=432) LYMPHOCYTES ABSOLUTE COUNT (BEAKER) (test 1.06 K/ L 1.18-3.74 jqsx=543) MONOCYTES ABSOLUTE COUNT (BEAKER) (test 0.88 K/ L 0.24-0.36 snej=115) EOSINOPHILS ABSOLUTE COUNT (BEAKER) (test 0.16 K/ L 0.04-0.36 tyzu=163) BASOPHILS ABSOLUTE COUNT (BEAKER) (test 0.02 K/ L 0.01-0.08 dmqh=904) IMMATURE GRANULOCYTES-RELATIVE PERCENT (BEAKER) 1 % 0-1 (test gdqy=9735) BASIC METABOLIC [id number] 08:48:00 Test Item Value Reference Range Comments SODIUM (BEAKER) (test 138 meq/L 136-145 ccix=686) POTASSIUM (BEAKER) (test 4.6 meq/L 3.5-5.1 nvxq=217) CHLORIDE (BEAKER) (test 104 meq/L 98-107 yevf=144) CO2 (BEAKER) (test 23 meq/L 22-29 ixxh=561) BLOOD UREA NITROGEN 40 mg/dL 7-21 (BEAKER) (test ydpx=355) CREATININE (BEAKER) (test 1.03 mg/dL 0.57-1.25 jxxi=209) GLUCOSE RANDOM (BEAKER) 140 mg/dL 70-105 (test aaro=540) CALCIUM (BEAKER) (test 9.1 mg/dL 8.4-10.2 vdte=667) EGFR (BEAKER) (test 52 mL/min/1.73 sq m ESTIMATED GFR IS NOT kaeu=9863) ACCURATE CREATININE CLEARANCE IN PREDICTING GLOMERULAR FILTRATION RATE. ESTIMATED GFR IS NOT APPLICABLE FOR DIALYSIS PATIENTS. URINE [id number] 08:09:00 Test Item Value Reference Range Comments CULTURE (BEAKER) (test STENOTROPHOMONAS >100,000 col/mL qjnx=0942) MALTOPHILIA Stenotrophomonas maltophilia Amikacin (test code=1) Ampicillin (test code=26) Ampicillin + Sulbactam (test code=6) Aztreonam (test code=32) Cefazolin (test code=9) Cefepime (test code=51) Ceftazidime (test Susceptible 0-8 , code=27) Resistant <0 or >8 Ceftriaxone (test code=52) Ciprofloxacin (test code=7) Doripenem (test zvzb=637) Ertapenem (test code=38) Gentamicin (test code=18) Imipenem (test code=19) Levofloxacin (test Susceptible 0-2 , code=22) Resistant <0 or >2 Meropenem (test code=34) Minocycline (test Susceptible 0-4 , code=35) Resistant <0 or >4 Nitrofurantoin (test code=23) Piperacillin (test code=24) Piperacillin + Tazobactam (test code=29) Tetracycline (test code=2) Ticarcillin + Clavulanic Acid (test code=80) Tigecycline (test oits=536) Tobramycin (test code=25) Trimethoprim + Susceptible 0-40 Sulfamethoxazole (test , Resistant <0 or code=47) >40 CULTURE (BEAKER) (test COAGULASE NEGATIVE >100,000 col/mL joix=1501) STAPHYLOCOCCUS Coagulase negative Staphylococcus Ampicillin (test tkug=135) Ciprofloxacin (test code=72) Clindamycin (test code=10) Daptomycin (test code=59) Erythromycin (test code=4) Gentamicin (test isvj=523) Gentamicin High Level Synergy (test zkkh=529) Levofloxacin (test code=22) Linezolid (test code=40) Moxifloxacin (test code=36) Nitrofurantoin (test code=23) Oxacillin (test code=14) Rifampin (test code=43) Streptomycin High Level Synergy (test rkow=611) Tetracycline (test code=2) Tigecycline (test skki=3001) Trimethoprim + Sulfamethoxazole (test code=47) Vancomycin (test code=13) URINALYSIS W/ [id number] 10:28:00 Test Item Value Reference Range Comments COLOR (BEAKER) (test tjwz=258) Yellow CLARITY (BEAKER) (test wedc=478) Clear SPECIFIC GRAVITY UA (BEAKER) (test 1.014 1.001-1.035 hoda=567) PH UA (BEAKER) (test xzss=957) 6.0 5.0-8.0 PROTEIN UA (BEAKER) (test aele=543) 50 mg/dL Negative GLUCOSE UA (BEAKER) (test oyse=575) Negative Negative KETONES UA (BEAKER) (test afwq=926) Negative Negative BILIRUBIN UA (BEAKER) (test jctb=642) Negative Negative BLOOD UA (BEAKER) (test toqv=691) Trace Negative NITRITE UA (BEAKER) (test zemc=954) Positive Negative LEUKOCYTE ESTERASE UA (BEAKER) (test Large Negative uiex=675) UROBILINOGEN UA (BEAKER) (test mwqh=021) 0.2 mg/dL 0.2-1.0 RBC UA (BEAKER) (test ymec=540) 1 /HPF WBC UA (BEAKER) (test fprx=074) 15 /HPF BACTERIA (BEAKER) (test xocz=377) Rare HYALINE CASTS (BEAKER) (test jkap=577) 9 /LPF CRYSTALS, URINE (BEAKER) (test orpa=7319) Rare SOURCE(BEAKER) (test qhdp=5891) Urine, Nephrostomy BASIC METABOLIC [id number] 10:18:00 Test Item Value Reference Range Comments SODIUM (BEAKER) (test 136 meq/L 136-145 eylw=996) POTASSIUM (BEAKER) (test 3.8 meq/L 3.5-5.1 eion=686) CHLORIDE (BEAKER) (test 100 meq/L 98-107 uncw=058) CO2 (BEAKER) (test 24 meq/L 22-29 qunt=282) BLOOD UREA NITROGEN 26 mg/dL 7-21 (BEAKER) (test ndiw=600) CREATININE (BEAKER) (test 0.89 mg/dL 0.57-1.25 bjie=078) GLUCOSE RANDOM (BEAKER) 82 mg/dL 70-105 (test zssm=461) CALCIUM (BEAKER) (test 9.3 mg/dL 8.4-10.2 eugr=994) EGFR (BEAKER) (test 62 mL/min/1.73 sq m ESTIMATED GFR IS NOT pzwy=8896) ACCURATE CREATININE CLEARANCE IN PREDICTING GLOMERULAR FILTRATION RATE. ESTIMATED GFR IS NOT APPLICABLE FOR DIALYSIS PATIENTS. CBC W/PLT COUNT & AUTO [id number] 10:12:00 Test Item Value Reference Range Comments WHITE BLOOD CELL COUNT (BEAKER) (test yqxe=947) 9.6 K/ L 4.0-10.0 RED BLOOD CELL COUNT (BEAKER) (test razp=557) 3.48 M/ L 4.00-5.00 HEMOGLOBIN (BEAKER) (test agao=944) 10.4 GM/DL 12.0-15.0 HEMATOCRIT (BEAKER) (test ynuq=027) 33.0 % 36.0-45.0 MEAN CORPUSCULAR VOLUME (BEAKER) (test bupd=076) 94.8 fL 82.0-99.0 MEAN CORPUSCULAR HEMOGLOBIN (BEAKER) (test 29.9 pg 27.0-33.0 ylsj=353) MEAN CORPUSCULAR HEMOGLOBIN CONC (BEAKER) (test 31.5 GM/DL 32.0-36.0 ajev=597) RED CELL DISTRIBUTION WIDTH (BEAKER) (test 15.7 % 10.3-14.2 alkj=830) PLATELET COUNT (BEAKER) (test ulpv=810) 548 K/CU MM 150-430 MEAN PLATELET VOLUME (BEAKER) (test gwtz=263) 6.2 fL 6.5-10.5 NUCLEATED RED BLOOD CELLS (BEAKER) (test 0 /100 WBC 0-0 gmvy=008) NEUTROPHILS RELATIVE PERCENT (BEAKER) (test 70 % txyl=973) LYMPHOCYTES RELATIVE PERCENT (BEAKER) (test 17 % plon=087) MONOCYTES RELATIVE PERCENT (BEAKER) (test 12 % eysv=736) EOSINOPHILS RELATIVE PERCENT (BEAKER) (test 2 % hoyn=359) BASOPHILS RELATIVE PERCENT (BEAKER) (test 1 % ojbd=550) NEUTROPHILS ABSOLUTE COUNT (BEAKER) (test 6.65 K/ L 1.80-8.00 hzep=731) LYMPHOCYTES ABSOLUTE COUNT (BEAKER) (test 1.58 K/ L 1.48-4.50 gvww=429) MONOCYTES ABSOLUTE COUNT (BEAKER) (test 1.11 K/ L 0.00-1.30 part=634) EOSINOPHILS ABSOLUTE COUNT (BEAKER) (test 0.17 K/ L 0.00-0.50 gcwh=466) BASOPHILS ABSOLUTE COUNT (BEAKER) (test 0.06 K/ L 0.00-0.20 rvot=386) 0.00PT/[id number] 10:12:00 Test Item Value Reference Range Comments PROTIME (BEAKER) (test ugpw=440) 13.4 seconds 11.7-14.7 INR (BEAKER) (test ukzq=082) 1.0 <=5.9 PARTIAL THROMBOPLASTIN TIME (BEAKER) (test 36.3 seconds 22.5-36.0 rohw=969) RECOMMENDED COUMADIN/WARFARIN INR THERAPY RANGESSTANDARD DOSE: 2.0 - 3.0 Includes: PROPHYLAXIS forvenous thrombosis, systemic embolization; TREATMENT for venous thrombosis and/or pulmonary embolus.HIGH RISK: Target INR is 2.5-3.5 for patients with mechanical heart valves.POCT-GLUCOSE [id number] 13:22:00 Test Item Value Reference Range Comments POC-GLUCOSE METER (BEAKER) 136 mg/dL 70-110 TESTED AT [address] (test fbfi=4132) [place] [address] POCT-GLUCOSE [id number] 07:56:00 Test Item Value Reference Range Comments POC-GLUCOSE METER (BEAKER) 185 mg/dL 70-110 TESTED AT [address] (test cnbx=3315) [place] [address] HEMOGLOBIN AND [id number] 06:36:00 Test Item Value Reference Range Comments HEMOGLOBIN (BEAKER) (test nnzl=554) 9.1 GM/DL 12.0-15.0 HEMATOCRIT (BEAKER) (test vate=739) 29.3 % 36.0-45.0 BASIC METABOLIC [id number] 06:21:00 Test Item Value Reference Range Comments SODIUM (BEAKER) (test 142 meq/L 136-145 frui=272) POTASSIUM (BEAKER) (test 3.8 meq/L 3.5-5.1 ixhe=981) CHLORIDE (BEAKER) (test 108 meq/L 98-107 tcxg=606) CO2 (BEAKER) (test 22 meq/L 22-29 dyux=296) BLOOD UREA NITROGEN 30 mg/dL 7-21 (BEAKER) (test onqf=537) CREATININE (BEAKER) (test 1.44 mg/dL 0.57-1.25 isyu=757) GLUCOSE RANDOM (BEAKER) 133 mg/dL 70-105 (test npun=642) CALCIUM (BEAKER) (test 8.3 mg/dL 8.4-10.2 guqn=478) EGFR (BEAKER) (test 36 mL/min/1.73 sq m ESTIMATED GFR IS NOT vvmw=9902) ACCURATE CREATININE CLEARANCE IN PREDICTING GLOMERULAR FILTRATION RATE. ESTIMATED GFR IS NOT APPLICABLE FOR DIALYSIS PATIENTS. [id number] 06:05:00 Test Item Value Reference Range Comments PROTIME (BEAKER) (test pbyb=672) 15.8 seconds 11.7-14.7 INR (BEAKER) (test hjhs=503) 1.3 <=5.9 PARTIAL THROMBOPLASTIN TIME (BEAKER) (test 39.7 seconds 22.5-36.0 ygsn=032) RECOMMENDED COUMADIN/WARFARIN INR THERAPY RANGESSTANDARD DOSE: 2.0 - 3.0 Includes: PROPHYLAXIS forvenous thrombosis, systemic embolization; TREATMENT for venous thrombosis and/or pulmonary embolus.HIGH RISK: Target INR is 2.5-3.5 for patients with mechanical heart valves.POCT-GLUCOSE [id number] 20:59:00 Test Item Value Reference Range Comments POC-GLUCOSE METER (BEAKER) 139 mg/dL 70-110 TESTED AT [address] (test yhmo=2096) [place] [id number] POCT-GLUCOSE [id number] 17:25:00 Test Item Value Reference Range Comments POC-GLUCOSE METER (BEAKER) 213 mg/dL 70-110 TESTED AT [address] (test wyfh=7507) [facility] [address] BASIC METABOLIC [id number] 15:09:00 Test Item Value Reference Range Comments SODIUM (BEAKER) (test 140 meq/L 136-145 jxdb=287) POTASSIUM (BEAKER) (test 3.8 meq/L 3.5-5.1 cpqr=917) CHLORIDE (BEAKER) (test 106 meq/L 98-107 vkak=757) CO2 (BEAKER) (test 24 meq/L 22-29 tmyb=092) BLOOD UREA NITROGEN 35 mg/dL 7-21 (BEAKER) (test bqmf=890) CREATININE (BEAKER) (test 1.64 mg/dL 0.57-1.25 odtk=868) GLUCOSE RANDOM (BEAKER) 181 mg/dL 70-105 (test dagp=795) CALCIUM (BEAKER) (test 8.2 mg/dL 8.4-10.2 znan=927) EGFR (BEAKER) (test 31 mL/min/1.73 sq m ESTIMATED GFR IS NOT knaw=5791) ACCURATE CREATININE CLEARANCE IN PREDICTING GLOMERULAR FILTRATION RATE. ESTIMATED GFR IS NOT APPLICABLE FOR DIALYSIS PATIENTS. PROTHROMBIN [id number] 14:53:00 Test Item Value Reference Range Comments PROTIME (BEAKER) (test tqdy=887) 15.6 seconds 11.7-14.7 INR (BEAKER) (test xqgw=899) 1.3 <=5.9 RECOMMENDED COUMADIN/WARFARIN INR THERAPY RANGESSTANDARD DOSE: 2.0 - 3.0 Includes: PROPHYLAXIS forvenous thrombosis, systemic embolization; TREATMENT for venous thrombosis and/or pulmonary embolus.HIGH RISK: Target INR is 2.5-3.5 for patients with mechanical heart valves.HEMOGLOBIN AND [id number] 14 :50:00 Test Item Value Reference Range Comments HEMOGLOBIN (BEAKER) (test ttue=497) 10.4 GM/DL 12.0-15.0 HEMATOCRIT (BEAKER) (test zjsy=637) 32.6 % 36.0-45.0 CBC W/PLT COUNT & AUTO [id number] 12:10:00 Test Item Value Reference Range Comments WHITE BLOOD CELL COUNT (BEAKER) (test tlzv=734) 11.7 K/ L 4.0-10.0 RED BLOOD CELL COUNT (BEAKER) (test glbh=878) 3.31 M/ L 4.00-5.00 HEMOGLOBIN (BEAKER) (test tmaj=461) 9.9 GM/DL 12.0-15.0 HEMATOCRIT (BEAKER) (test npjo=529) 31.3 % 36.0-45.0 MEAN CORPUSCULAR VOLUME (BEAKER) (test snwd=814) 94.5 fL 82.0-99.0 MEAN CORPUSCULAR HEMOGLOBIN (BEAKER) (test 30.0 pg 27.0-33.0 nheu=883) MEAN CORPUSCULAR HEMOGLOBIN CONC (BEAKER) (test 31.7 GM/DL 32.0-36.0 rupj=623) RED CELL DISTRIBUTION WIDTH (BEAKER) (test 14.6 % 10.3-14.2 wvib=819) PLATELET COUNT (BEAKER) (test ukbw=103) 393 K/CU MM 150-430 MEAN PLATELET VOLUME (BEAKER) (test uyyk=975) 7.4 fL 6.5-10.5 NUCLEATED RED BLOOD CELLS (BEAKER) (test 0 /100 WBC 0-0 irrp=074) NEUTROPHILS RELATIVE PERCENT (BEAKER) (test 76 % zbnz=203) LYMPHOCYTES RELATIVE PERCENT (BEAKER) (test 11 % fwdi=260) MONOCYTES RELATIVE PERCENT (BEAKER) (test 12 % wftx=998) EOSINOPHILS RELATIVE PERCENT (BEAKER) (test 2 % laxo=102) BASOPHILS RELATIVE PERCENT (BEAKER) (test 0 % wdjs=354) NEUTROPHILS ABSOLUTE COUNT (BEAKER) (test 8.83 K/ L 1.80-8.00 faex=276) LYMPHOCYTES ABSOLUTE COUNT (BEAKER) (test 1.23 K/ L 1.48-4.50 wxyr=787) MONOCYTES ABSOLUTE COUNT (BEAKER) (test 1.42 K/ L 0.00-1.30 ulvu=555) EOSINOPHILS ABSOLUTE COUNT (BEAKER) (test 0.19 K/ L 0.00-0.50 gjgo=892) BASOPHILS ABSOLUTE COUNT (BEAKER) (test 0.00 K/ L 0.00-0.20 bbfu=003) [id number] 11:59:00 Test Item Value Reference Range Comments SODIUM (BEAKER) (test ubcx=193) 141 meq/L 136-145 POTASSIUM (BEAKER) (test atlm=629) 3.7 meq/L 3.5-5.1 CHLORIDE (BEAKER) (test kdiq=070) 107 meq/L 98-107 CO2 (BEAKER) (test ptgc=080) 24 meq/L 22-29 BUN AND [id number] 11:53:00 Test Item Value Reference Range Comments BLOOD UREA NITROGEN 38 mg/dL 7-21 (BEAKER) (test qnrj=640) CREATININE (BEAKER) (test 1.61 mg/dL 0.57-1.25 lngb=062) EGFR (BEAKER) (test 31 mL/min/1.73 sq m ESTIMATED GFR IS NOT wcuz=4657) ACCURATE CREATININE CLEARANCE IN PREDICTING GLOMERULAR FILTRATION RATE. ESTIMATED GFR IS NOT APPLICABLE FOR DIALYSIS PATIENTS. POCT-GLUCOSE [id number] 10:51:00 Test Item Value Reference Range Comments POC-GLUCOSE METER (BEAKER) 52 mg/dL 70-110 Notified TASHA GRECO/TESTED AT [facility] (test nlcd=1748) [address] [facility] [id number]
[2019-12-28] MEDS ORDERED: FENTANYL CITR 100 MCG/2 ML ONE (16:57)
[2019-12-28] MEDS ORDERED: ONDANSETRON 4 MG/2 ML VIAL ONE (16:57)
[2019-12-28] MEDS ORDERED: propofoL 200 MG/20 ML VIAL IV ONE (17:39)
[2019-12-28] MEDS ORDERED: NA CHLORIDE 0.9% 250 ML ONE (17:40)
--- NOTE | 2019-12-28 18:03 | ER ---
Nurse's Notes [facility] Name: Mary Archuleta Age: 79 yrs Sex: Female : 1940 Arrival Date: 12/28/2019 Time: 16:29 Bed 6 Private MD: Diagnosis: Dislocation of internal right hip prosthesis Presentation: 12/28 16:30 Presenting complaint: Patient states: Right hip pain. Possible dislocation. Here on ll1 Thursday for the same. States she was sitting in a chair, bent over and it just popped out of place. Transition of care: patient was not received from another setting of care. Onset of symptoms was December 28, 2019 at 15:50. Risk Assessment: Do you want to hurt yourself or someone else? Patient reports no desire to harm self or others. Initial Sepsis Screen: Does the patient meet any 2 criteria? No. Patient's initial sepsis screen is negative. Does the patient have a suspected source of infection? No. Patient's initial sepsis screen is negative. Care prior to arrival: None. 16:30 Method Of Arrival: EMS: [facility] 16:30 Acuity: SILVERIO 3 ll1 Triage Assessment: 16:37 General: Appears in no apparent distress. Behavior is calm, cooperative. Pain: 1 Complains of pain in right hip Pain currently is 3 out of 10 on a pain scale. Quality of pain is described as aching, Pain began suddenly, Alleviated by repositioning. Neuro: No deficits noted. Cardiovascular: No deficits noted. Respiratory: No deficits noted. Musculoskeletal: Circulation, motion, and sensation intact. Capillary refill < 3 seconds, Range of motion: limited in right hip right hip pain. Historical: - Allergies: 16:36 Lisinopril; ll1 - Home Meds: 16:36 Eliquis Oral [Active]; Hydrocodone-Acetaminophen Oral [Active]; fluoxetine 10 mg Oral ll1 cap 1 caps once daily [Active]; metoprolol succinate Oral [Active]; omeprazole 40 mg Oral cpDR 1 cap once daily [Active]; torsemide Oral [Active]; - PMHx: 16:36 Atrial Fib; BREAST CA; Depression; Diabetes - NIDDM; Hyperlipidemia; Hypertension; ll1 Hypothyroidism; cervical cancer; peptic ulcers; lymphedema; - Immunization history:: Adult Immunizations up to date, Last tetanus immunization: up to date. - Coronavirus screen:: The patient has NOT traveled to [place] in the past 14 days. Proceed with normal triage process as indicated. - Social history:: Smoking status: Patient denies any tobacco usage or history of. - Ebola Screening: : No symptoms or risks identified at this time. Screenin:43 Abuse screen: Denies threats or abuse. Nutritional screening: No deficits noted. ll1 Tuberculosis screening: No symptoms or risk factors identified. Fall Risk Fall in past 12 months (25 points). No secondary diagnosis (0 pts). Ambulatory Aid- Crutches/Cane/Walker (15 pts). Gait- Normal/Bed Rest/Wheelchair (0 pts) Mental Status- Oriented to own ability (0 pts). Total Potter Fall Scale indicates Low Risk Score (25-44 pts). Assessment: 16:41 General: Appears in no apparent distress. Behavior is calm, cooperative, see triage for ll1 further details. Musculoskeletal: Reports pain in right hip. Vital Signs: 16:39 BP 126 / 67; Pulse 72; Resp 17; Temp 98.5; Pulse Ox 96% ; Pain 3/10; ll1 17:45 BP 132 / 87; Pulse 83; Resp 17; Pulse Ox 100% on 2 lpm NC; Pain 4/10; ll1 17:45 BP 132 / 87; Pulse 83; Resp 17; Temp 97.5; Pulse Ox 100% on 2 lpm NC; Pain 5/10; ll1 17:56 BP 109 / 60; Pulse 82; Resp 17; Pulse Ox 99% ; ll1 17:59 Weight 59.87 kg; ll1 18:42 BP 136 / 70; Pulse 84; Resp 18; Pulse Ox 100% ; Pain 3/10; ll1 17:45 See conscious sedation flow sheet for procedural details. ll1 Vitals: 17:45 Cardiac Rhythm Assessment Atrial fibrillation W/PVC's. ll1 ED Course: 16:29 Patient arrived in ED. ll1 16:31 William Hernandez PA is PHCP. jr8 16:31 Fran Ruvalcaba MD is Attending Physician. jr8 16:32 Triage completed. ll1 16:41 Arm band placed on right wrist. ll1 16:45 Patient has correct armband on for positive identification. Allergy band placed. Fall ll1 risk band placed. Bed in low position. Call light in reach. Side rails up X2. Pulse ox on. NIBP on. 16:46 Bhumika Mercado, RN is Primary Nurse. ll1 17:51 Assist provider with reduction of right pathologic or non traumatic hip using traction, ll1 manipulation, Set up for procedure. Performed by William MILLS Patient tolerated well. Relocated RLE within 2 minutes. 18:59 IV discontinued, intact, bleeding controlled, No redness/swelling at site. Pressure ll1 dressing applied. 19:03 Hip Right 2 View In Process Unspecified. EDMS Administered Medications: 17:02 Drug: fentaNYL (PF) 25 mcg Route: IVP; Site: right antecubital; ll1 18:02 Follow up: Response: No adverse reaction; Pain is decreased ll1 17:02 Drug: Zofran 4 mg Route: IVP; Site: right antecubital; ll1 18:02 Follow up: Response: No adverse reaction ll1 18:00 Drug: Propofol 0.5 mg/kg Route: IVP; Site: right antecubital; ll1 18:01 Drug: Propofol 0.5 mg/kg {Note: Propofol 30 mg IV at 1751, Propofol 20 mg IV at 1752.} ll1 Route: IVP; Site: right antecubital; 18:11 Follow up: Response: No adverse reaction; RASS: Drowsy (-1) ll1 Outcome: 18:02 Discharge ordered by MD. green 18:50 Discharge instructions given to patient, significant other, Instructed on discharge ll1 instructions, follow up and referral plans. Demonstrated understanding of instructions, follow-up care. 19:01 Discharged to home via wheelchair, with significant other. ll1 19:01 Condition: improved 19:03 Patient left the ED. ll1 Signatures: Dispatcher [employer] EDMS William Hernandez PA PA jr8 Bhumika Mercado, RN RN ll1
--- NOTE | 2019-12-28 18:03 | EDPHYS ---
Physician Documentation [facility] Name: Mary Archuleta Age: 79 yrs Sex: Female : 1940 Arrival Date: 12/28/2019 Time: 16:29 Bed 6 Private MD: ED Physician Fran Ruvalcaba HPI: 12/28 16:59 This 79 yrs old Female presents to ER via EMS with complaints of Hip Pain. jr8 16:59 The patient or guardian reports decreased range of motion, pain. that occurred at home, jr8 sustained from twisting motion the right leg is internally rotated, The patient is not able to ambulate. Patient is not able to bear weight. There is no radiation of the patient's discomfort. The complaints affect the right hip. Onset: The symptoms/episode began/occurred acutely, today. Modifying factors: The symptoms are alleviated by nothing, the symptoms are aggravated by any movement. Associated signs and symptoms: Pertinent positives: None. Severity of symptoms: At their worst the symptoms were moderate, in the emergency department the symptoms are unchanged. The patient has experienced a previous episode. The patient has been recently seen by a physician:. Patient stated that her prosthetic hip came out this past Thursday. While bending over today to undo a strap felt it come out again. Denies any other trauma . Historical: - Allergies: 16:36 Lisinopril; ll1 - Home Meds: 16:36 Eliquis Oral [Active]; Hydrocodone-Acetaminophen Oral [Active]; fluoxetine 10 mg Oral ll1 cap 1 caps once daily [Active]; metoprolol succinate Oral [Active]; omeprazole 40 mg Oral cpDR 1 cap once daily [Active]; torsemide Oral [Active]; - PMHx: 16:36 Atrial Fib; BREAST CA; Depression; Diabetes - NIDDM; Hyperlipidemia; Hypertension; ll1 Hypothyroidism; cervical cancer; peptic ulcers; lymphedema; - Immunization history:: Adult Immunizations up to date, Last tetanus immunization: up to date. - Coronavirus screen:: The patient has NOT traveled to [place] in the past 14 days. Proceed with normal triage process as indicated. - Social history:: Smoking status: Patient denies any tobacco usage or history of. - Ebola Screening: : No symptoms or risks identified at this time. ROS: 16:59 Eyes: Negative for injury, pain, redness, and discharge, ENT: Negative for injury, jr8 pain, and discharge, Neck: Negative for injury, pain, and swelling, Cardiovascular: Negative for chest pain, palpitations, and edema, Respiratory: Negative for shortness of breath, cough, wheezing, and pleuritic chest pain, Abdomen/GI: Negative for abdominal pain, nausea, vomiting, diarrhea, and constipation, Back: Negative for injury and pain, Skin: Negative for injury, rash, and discoloration, Neuro: Negative for headache, weakness, numbness, tingling, and seizure. 16:59 MS/extremity: Positive for injury or acute deformity, decreased range of motion, pain, of the right hip. Exam: 16:59 Eyes: Pupils equal round and reactive to light, extra-ocular motions intact. Lids and jr8 lashes normal. Conjunctiva and sclera are non-icteric and not injected. Cornea within normal limits. Periorbital areas with no swelling, redness, or edema. ENT: Nares patent. No nasal discharge, no septal abnormalities noted. Tympanic membranes are normal and external auditory canals are clear. Oropharynx with no redness, swelling, or masses, exudates, or evidence of obstruction, uvula midline. Mucous membranes moist. Neck: Trachea midline, no thyromegaly or masses palpated, and no cervical lymphadenopathy. Supple, full range of motion without nuchal rigidity, or vertebral point tenderness. No Meningismus. Cardiovascular: Regular rate and rhythm with a normal S1 and S2. No gallops, murmurs, or rubs. Normal PMI, no JVD. No pulse deficits. Respiratory: Lungs have equal breath sounds bilaterally, clear to auscultation and percussion. No rales, rhonchi or wheezes noted. No increased work of breathing, no retractions or nasal flaring. Abdomen/GI: Soft, non-tender, with normal bowel sounds. No distension or tympany. No guarding or rebound. No evidence of tenderness throughout. Back: No spinal tenderness. No costovertebral tenderness. Full range of motion. Skin: Warm, dry with normal turgor. Normal color with no rashes, no lesions, and no evidence of cellulitis. Neuro: Awake and alert, GCS 15, oriented to person, place, time, and situation. Cranial nerves II-XII grossly intact. Motor strength 5/5 in all extremities. Sensory grossly intact. Cerebellar exam normal. Normal gait. 16:59 Musculoskeletal/extremity: Extremities: grossly normal except: noted in the right hip: pain, tenderness, right leg turned inward , ROM: limited active range of motion, in the right leg, limited passive range of motion, in the right leg, Circulation is intact in all extremities. Sensation intact. Vital Signs: 16:39 BP 126 / 67; Pulse 72; Resp 17; Temp 98.5; Pulse Ox 96% ; Pain 3/10; ll1 17:45 BP 132 / 87; Pulse 83; Resp 17; Pulse Ox 100% on 2 lpm NC; Pain 4/10; ll1 17:45 BP 132 / 87; Pulse 83; Resp 17; Temp 97.5; Pulse Ox 100% on 2 lpm NC; Pain 5/10; ll1 17:56 BP 109 / 60; Pulse 82; Resp 17; Pulse Ox 99% ; ll1 17:59 Weight 59.87 kg; ll1 18:42 BP 136 / 70; Pulse 84; Resp 18; Pulse Ox 100% ; Pain 3/10; ll1 17:45 See conscious sedation flow sheet for procedural details. ll1 Procedures: 17:50 Reduction: of the right hip, using traction, manipulation, Patient tolerated well. Post jr8 reduction film - reveals normal alignment. Moderate sedation: Pre-procedure assessment: the patient has been NPO 4 hour(s) prior to arrival, ASA physical classification: III - organic disease with definite functional impairment, Airway assessment: able to hyperextend neck, able to maintain airway, can open mouth without difficulty, Mallampati classification of tongue size: II - faucial pillars and soft palate can be visualized, but uvula is masked by the base of the tongue, Monitoring during procedure: jewelry coater, continuous pulse oximetry, nurse at bedside at all times, Medications employed: propofol, Post-procedure assessment: the patient is moderately sedated, [place] sedation score: 5 - sluggish response to a light glabellar tap, Respiratory status: even and unlabored, a reversal agent was not used. MDM: 16:31 Patient medically screened. jr8 17:50 Data reviewed: vital signs, nurses notes, radiologic studies, plain films. Data jr8 interpreted: Pulse oximetry: on room air is 100 %. Interpretation: normal. Counseling: I had a detailed discussion with the patient and/or guardian regarding: the historical points, exam findings, and any diagnostic results supporting the discharge/admit diagnosis, radiology results, the need for outpatient follow up, a orthopedic surgeon, to return to the emergency department if symptoms worsen or persist or if there are any questions or concerns that arise at home. Response to treatment: the patient's symptoms have resolved after treatment. 12/28 16:31 Order name: XRAY Hip RIGHT 2 view jr8 12/28 17:53 Order name: Hip Right 2 View XRAY iw 12/28 18:30 Order name: RAD EDMS 12/28 19:03 Order name: Hip Right 2 View [facility] 12/28 16:49 Order name: IV; Complete Time: 17:02 jr8 Administered Medications: 17:02 Drug: fentaNYL (PF) 25 mcg Route: IVP; Site: right antecubital; ll1 18:02 Follow up: Response: No adverse reaction; Pain is decreased ll1 17:02 Drug: Zofran 4 mg Route: IVP; Site: right antecubital; ll1 18:02 Follow up: Response: No adverse reaction ll1 18:00 Drug: Propofol 0.5 mg/kg Route: IVP; Site: right antecubital; ll1 18:01 Drug: Propofol 0.5 mg/kg {Note: Propofol 30 mg IV at 1751, Propofol 20 mg IV at 1752.} ll1 Route: IVP; Site: right antecubital; 18:11 Follow up: Response: No adverse reaction; RASS: Drowsy (-1) ll1 Disposition: 19:12 Co-signature as Attending Physician, Fran Ruvalcaba MD I agree with the assessment and kdr plan of care. Disposition: 12/28/19 18:02 Discharged to Home. Impression: Dislocation of internal right hip prosthesis. - Condition is Stable. - Discharge Instructions: Closed Reduction for Artificial Hip Dislocation, Closed Reduction for Artificial Hip Dislocation, Care After. - Medication Reconciliation Form, Thank You Letter, Antibiotic Education, Prescription Opioid Use form. - Follow up: Private Physician; When: 2 - 3 days; Reason: Recheck today's complaints, Continuance of care, Re-evaluation by your physician. - Problem is new. - Symptoms are resolved. Signatures: Dispatcher [employer] [facility] Fran Ruvalcaba MD MD kdr Roszak, Josh, PA PA jr8 Bhumika Mercado RN RN ll1 Corrections: (The following items were deleted from the chart) 19:03 18:02 12/28/2019 18:02 Discharged to Home. Impression: Dislocation of internal right ll1 hip prosthesis. Condition is Stable. Forms are Medication Reconciliation Form, Thank You Letter, Antibiotic Education, Prescription Opioid Use. Follow up: Private Physician; When: 2 - 3 days; Reason: Recheck today's complaints, Continuance of care, Re-evaluation by your physician. Problem is new. Symptoms are resolved. jr8
--- NOTE | 2019-12-28 18:18 | RAD REPORT ---
EXAM DESCRIPTION: RAD - Hip Right 2 View - 12/28/2019 5:15 pm CLINICAL HISTORY: Right hip pain FINDINGS: A right femoral prosthesis is dislocated superior laterally. No fracture seen
--- NOTE | 2019-12-28 19:08 | RAD REPORT ---
EXAM DESCRIPTION: RAD - Hip Right 2 View - 12/28/2019 6:45 pm CLINICAL HISTORY: Right hip pain FINDINGS: Right femoral prosthesis dislocation has been reduced
[2019-12-28 19:11] VITALS: TEMP 97.5
[2019-12-28 19:14] VITALS: BP 136/70; O2SAT 100
== END 2019-12-28 19:03 | disposition home or self-care (01) ==
LOC: ER 16:26
PROC: 0SS9XZZ Reposition Right Hip Joint, External Approach (ICD-10-PCS; principal; 2019-12-28)
DX: T84.020A Dislocation of internal right hip prosthesis, initial encounter (principal); I10 Essential (primary) hypertension; E78.5 Hyperlipidemia, unspecified; E11.9 Type 2 diabetes mellitus without complications; F32.9 Major depressive disorder, single episode, unspecified; I48.91 Unspecified atrial fibrillation; Z85.3 Personal history of malignant neoplasm of breast; Z79.01 Long term (current) use of anticoagulants; Z88.8 Allergy status to other drugs, medicaments and biological substances
CPT/HCPCS: 73502 ×2; 96375; 96374; 99285; 27252; J2704; J3010; J7030; J2405

== ENCOUNTER 2019-12-31 14:09 | Emergency (ER) | payer OTHER, BC ==
--- OUTSIDE RECORDS SUMMARY | 2019-12-31 14:14 | XMS REPORT ---
:1940 [facility] [address] [place] [address] Care Team Providers Name Role Phone LINK, MARCO A LEE Unavailable Unavailable MOLLYCHELSEY Unavailable Unavailable EDIE CLEMENT Unavailable Unavailable ZUÑIGACASIE [...] Results Atomic Results Result Comments ANG, NEPHROSTOMY 2019-12-26 Reason for Exam:->uti FINAL REPORT PATIENT ID: TUBE CHANGE, LEFT 16:06:00 w/o hematuria site [id number] PROCEDURE: unspecified, Percutaneous nephrostomy hydrohephrosis catheter placement CLINICAL HISTORY: uti w/o hematuria site unspecified, hydronephrosis unspecified DIRECTOR EPIDEMIOLOGY: Damian Quiros DO, JD ANESTHESIA: Local lidocaine. DEVICE: On the right 12 Kenyan pigtail catheter, on the left 10.2 Kenyan 22 cm nephroureteral stent DOSE INFORMATION - Ka,r: 118 mGy Estimated Blood Loss: <5 mL Samples: None. PROCEDURE: The risks, benefits, and alternatives to the procedure were discussed with the patient. All questions were answered and written informed consent was obtained. A universal timeout was performed prior to starting the procedure. For the prevention of infection all elements of maximal sterile barrier technique, hand hygiene, skin preparation and sterile techniques were followed. After local anesthesia with lidocaine, the left catheter was exchanged over a wire. Contrast injection confirmed appropriate location. The contralateral side with change in the same fashion. Per patient request a suture was used to secure the catheter to the skin site. The patient tolerated procedure well without immediate complication and was transported to the floor/recovery area in stable condition. IMPRESSION: Successful right percutaneous nephrostomy catheter exchange and left percutaneous nephroureteral stent exchange. Routine exchange recommended. Signed: Damian Quiros MDRjosuéort Verified Date/Time: 12/26/2019 16:06:22 Reading Location: [place] [address] Angio Body Reading Room , NEPHROSTOMY 2019-12-26 Reason for Exam:->uti FINAL REPORT PATIENT ID: TUBE CHANGE, RIGHT 16:06:00 w/o hematuria site [id number] PROCEDURE: unspecified, Percutaneous nephrostomy hydronephrosis catheter placement unspecified CLINICAL HISTORY: uti w/o hematuria site unspecified, hydronephrosis unspecified DIRECTOR EPIDEMIOLOGY: Damian Quiros DO, JD ANESTHESIA: Local lidocaine. DEVICE: On the right 12 Kenyan pigtail catheter, on the left 10.2 Kenyan 22 cm nephroureteral stent DOSE INFORMATION - Ka,r: 118 mGy Estimated Blood Loss: <5 mL Samples: None. PROCEDURE: The risks, benefits, and alternatives to the procedure were discussed with the patient. All questions were answered and written informed consent was obtained. A universal timeout was performed prior to starting the procedure. For the prevention of infection all elements of maximal sterile barrier technique, hand hygiene, skin preparation and sterile techniques were followed. After local anesthesia with lidocaine, the left catheter was exchanged over a wire. Contrast injection confirmed appropriate location. The contralateral side with change in the same fashion. Per patient request a suture was used to secure the catheter to the skin site. The patient tolerated procedure well without immediate complication and was transported to the floor/recovery area in stable condition. IMPRESSION: Successful right percutaneous nephrostomy catheter exchange and left percutaneous nephroureteral stent exchange. Routine exchange recommended. Signed: Damian Quiros MDRjosuéort Verified Date/Time: 12/26/2019 16:06:22 Reading Location: [place] [address] Angio Body Reading Room , NEPHROSTOMY 2019-10-11 Reason for FINAL REPORT PATIENT ID: TUBE CHANGE, LEFT 12:12:00 Exam:->Chronic [id number] Fluoroscopic bilateral nephrostomy guided right nephrostomy tubes for bilateral and left ureteral obstruction. nephroureterostomy catheter exchange. History: Chronic ureteral obstruction Modality: Fluoroscopy Sedation: None Product Marketing Coordinator: Tutu Kruse MD Press Clippings Cutter And Paster: None. Approach: Via indwelling bilateral catheters Estimated [...] was removed over wire. A new 10.2 Kenyan by 22 cm nephroureterostomy catheter was advanced [...] existing catheter was removed. A new 12 Kenyan nephrostomy catheter was advanced over wire with pigtail formed within the right renal pelvis. No external suture was used per patient's preference. A sterile dressing was applied. The patient tolerated the procedure without immediate complication. Impression: Successful fluoroscopic guided left percutaneous nephroureterostomy and right sided percutaneous nephrostomy catheter exchange. Signed: Tutu Kruse MDReport Verified Date/Time: 10/11/2019 12:12:41 Reading Location: [place] [address] Angio Body Reading Room 2019-10-10 10:56:00 Test Item Value Reference Range Comments PARTIAL THROMBOPLASTIN TIME (BEAKER) (test ybyp=990) 43.6 seconds 22.5-36.0 PROTHROMBIN [id number] 10:55:00 Test Item Value Reference Range Comments PROTIME (BEAKER) (test oexv=819) 17.4 seconds 11.9-14.2 INR (BEAKER) (test dsip=457) 1.5 <=5.9 Effective 03/30/2019: PT Reference Range ChangeNew: 11.9-14.2 Previous: 11.7- 14.7RECOMMENDED COUMADIN/WARFARIN INR THERAPY RANGESSTANDARD DOSE: 2.0-3.0 Includes: PROPHYLAXIS for venous thrombosis, systemic embolization; TREATMENT for venous thrombosis and/or pulmonary embolus.HIGH RISK: Target INR is2.5-3.5 for patients wiht mechanical heart valves.CBC W/PLT COUNT & AUTO [id number] 10:48:00 Test Item Value Reference Range Comments WHITE BLOOD CELL COUNT (BEAKER) (test xris=246) 7.5 K/ L 3.5-10.5 RED BLOOD CELL COUNT (BEAKER) (test kdup=927) 3.19 M/ L 3.93-5.22 HEMOGLOBIN (BEAKER) (test uyqy=692) 9.4 GM/DL 11.2-15.7 HEMATOCRIT (BEAKER) (test rqhm=636) 31.3 % 34.1-44.9 MEAN CORPUSCULAR VOLUME (BEAKER) (test ybia=595) 98.1 fL 79.4-94.8 MEAN CORPUSCULAR HEMOGLOBIN (BEAKER) (test 29.5 pg 25.6-32.2 prjw=169) MEAN CORPUSCULAR HEMOGLOBIN CONC (BEAKER) (test 30.0 GM/DL 32.2-35.5 qxyz=821) RED CELL DISTRIBUTION WIDTH (BEAKER) (test 16.1 % 11.7-14.4 cipi=179) PLATELET COUNT (BEAKER) (test gzjo=058) 399 K/CU MM 150-450 MEAN PLATELET VOLUME (BEAKER) (test awro=925) 9.0 fL 9.4-12.3 NUCLEATED RED BLOOD CELLS (BEAKER) (test 0 /100 WBC 0-0 kqhu=132) NEUTROPHILS RELATIVE PERCENT (BEAKER) (test 77 % igfa=920) LYMPHOCYTES RELATIVE PERCENT (BEAKER) (test 11 % qcqn=860) MONOCYTES RELATIVE PERCENT (BEAKER) (test 9 % lpzn=174) EOSINOPHILS RELATIVE PERCENT (BEAKER) (test 2 % zetc=088) BASOPHILS RELATIVE PERCENT (BEAKER) (test 0 % ykgr=279) NEUTROPHILS ABSOLUTE COUNT (BEAKER) (test 5.71 K/ L 1.56-6.13 fgrs=155) LYMPHOCYTES ABSOLUTE COUNT (BEAKER) (test 0.81 K/ L 1.18-3.74 xsrk=586) MONOCYTES ABSOLUTE COUNT (BEAKER) (test 0.68 K/ L 0.24-0.36 tlfp=660) EOSINOPHILS ABSOLUTE COUNT (BEAKER) (test 0.18 K/ L 0.04-0.36 xkqk=087) BASOPHILS ABSOLUTE COUNT (BEAKER) (test 0.03 K/ L 0.01-0.08 bzdv=766) IMMATURE GRANULOCYTES-RELATIVE PERCENT (BEAKER) 1 % 0-1 (test wijn=4566) PROTHROMBIN [id number] 14:50:00 Test Item Value Reference Range Comments PROTIME (BEAKER) (test nisa=494) 18.4 seconds 11.9-14.2 INR (BEAKER) (test sxub=962) 1.6 <=5.9 Effective 03/30/2019: PT Reference Range ChangeNew: 11.9-14.2 Previous: 11.7- 14.7RECOMMENDED COUMADIN/WARFARIN INR THERAPY RANGESSTANDARD DOSE: 2.0-3.0 Includes: PROPHYLAXIS for venous thrombosis, systemic embolization; TREATMENT for venous thrombosis and/or pulmonary embolus.HIGH RISK: Target INR is2.5-3.5 for patients wiht mechanical heart valves.URINALYSIS W/ [id number] 14 :42:00 Test Item Value Reference Range Comments COLOR (BEAKER) (test hvun=929) Yellow CLARITY (BEAKER) (test asav=093) Hazy SPECIFIC GRAVITY UA (BEAKER) (test 1.019 1.001-1.035 jyug=231) PH UA (BEAKER) (test vqwy=860) 8.0 5.0-8.0 PROTEIN UA (BEAKER) (test hehx=521) 100 mg/dL Negative GLUCOSE UA (BEAKER) (test rlfd=433) Negative Negative KETONES UA (BEAKER) (test lvhd=669) Negative Negative BILIRUBIN UA (BEAKER) (test iuza=650) Negative Negative BLOOD UA (BEAKER) (test mnpm=642) Small Negative NITRITE UA (BEAKER) (test olwf=011) Positive Negative LEUKOCYTE ESTERASE UA (BEAKER) (test Large Negative klve=548) UROBILINOGEN UA (BEAKER) (test uzfs=863) 0.2 mg/dL 0.2-1.0 RBC UA (BEAKER) (test hcyr=110) 28 /HPF WBC UA (BEAKER) (test yhyr=922) 53 /HPF BACTERIA (BEAKER) (test pjqk=698) Moderate MUCUS (BEAKER) (test ruqx=0712) Few TRIPLE PHOSPHATE CRYSTALS (BEAKER) (test Few mjpu=3212) YEAST (BEAKER) (test ixnm=0473) Moderate SOURCE(BEAKER) (test iaru=1953) Urine, Nephrostomy BASIC METABOLIC [id number] 14:37:00 Test Item Value Reference Range Comments SODIUM (BEAKER) (test 136 meq/L 136-145 swrl=162) POTASSIUM (BEAKER) (test 4.4 meq/L 3.5-5.1 vhns=700) CHLORIDE (BEAKER) (test 103 meq/L 98-107 esqv=448) CO2 (BEAKER) (test 27 meq/L 22-29 jntn=990) BLOOD UREA NITROGEN 23 mg/dL 7-21 (BEAKER) (test kaks=799) CREATININE (BEAKER) (test 0.98 mg/dL 0.57-1.25 ycxs=727) GLUCOSE RANDOM (BEAKER) 90 mg/dL 70-105 (test snxr=206) CALCIUM (BEAKER) (test 8.9 mg/dL 8.4-10.2 ogxq=025) EGFR (BEAKER) (test 55 mL/min/1.73 sq m ESTIMATED GFR IS NOT luqu=5313) ACCURATE CREATININE CLEARANCE IN PREDICTING GLOMERULAR FILTRATION RATE. ESTIMATED GFR IS NOT APPLICABLE FOR DIALYSIS PATIENTS. CBC W/PLT COUNT & AUTO [id number] 14:22:00 Test Item Value Reference Range Comments WHITE BLOOD CELL COUNT (BEAKER) (test tutw=908) 6.0 K/ L 3.5-10.5 RED BLOOD CELL COUNT (BEAKER) (test raxg=186) 3.34 M/ L 3.93-5.22 HEMOGLOBIN (BEAKER) (test kuiw=196) 9.7 GM/DL 11.2-15.7 HEMATOCRIT (BEAKER) (test eqsr=950) 33.0 % 34.1-44.9 MEAN CORPUSCULAR VOLUME (BEAKER) (test ymjb=749) 98.8 fL 79.4-94.8 MEAN CORPUSCULAR HEMOGLOBIN (BEAKER) (test 29.0 pg 25.6-32.2 kcwk=550) MEAN CORPUSCULAR HEMOGLOBIN CONC (BEAKER) (test 29.4 GM/DL 32.2-35.5 rmgv=795) RED CELL DISTRIBUTION WIDTH (BEAKER) (test 16.2 % 11.7-14.4 sdcu=841) PLATELET COUNT (BEAKER) (test vzqr=074) 363 K/CU MM 150-450 MEAN PLATELET VOLUME (BEAKER) (test beex=156) 9.3 fL 9.4-12.3 NUCLEATED RED BLOOD CELLS (BEAKER) (test 0 /100 WBC 0-0 xpwh=862) NEUTROPHILS RELATIVE PERCENT (BEAKER) (test 68 % rkda=187) LYMPHOCYTES RELATIVE PERCENT (BEAKER) (test 15 % nphs=850) MONOCYTES RELATIVE PERCENT (BEAKER) (test 14 % sfiq=419) EOSINOPHILS RELATIVE PERCENT (BEAKER) (test 2 % ztmf=180) BASOPHILS RELATIVE PERCENT (BEAKER) (test 1 % orsp=437) NEUTROPHILS ABSOLUTE COUNT (BEAKER) (test 4.10 K/ L 1.56-6.13 ojdl=061) LYMPHOCYTES ABSOLUTE COUNT (BEAKER) (test 0.91 K/ L 1.18-3.74 afnw=315) MONOCYTES ABSOLUTE COUNT (BEAKER) (test 0.82 K/ L 0.24-0.36 xvfn=172) EOSINOPHILS ABSOLUTE COUNT (BEAKER) (test 0.12 K/ L 0.04-0.36 qgyt=943) BASOPHILS ABSOLUTE COUNT (BEAKER) (test 0.03 K/ L 0.01-0.08 qkxu=606) IMMATURE GRANULOCYTES-RELATIVE PERCENT (BEAKER) 0 % 0-1 (test qtlh=3127) RAD, ABDOMEN/KUB, 1 VIEW [id number] 18:36:00Reason for exam:->FLANK PAINFINAL REPORT Abdomen. MEDICAL [...] MDReport Verified Date/Time: 08/15/2019 18:36:07 Reading Location: [address] Consult Reading Room ANG, NEPHROSTOMY TUBE CHANGE, [id number] 18:18:00Reason for Exam:-& gt;hydronephrosisFINAL REPORT Procedure: Right percutaneous nephrostomy catheter exchange. Left percutaneous nephroureterostomy catheter exchange. History: Routine maintenance. . Product Marketing Coordinator: Yaya Templeton M.D. Press Clippings Cutter And Paster: None. Modality: Fluoroscopy. DOSE REDUCTION: The examination [...] local infiltration. Medicines: Not applicable Contrast medium: [id number], 30 cc. Estimated blood loss: < 5 [...] draped in the standard sterile fashion. A hearing therapy director radiograph was performed showing the catheter to [...] immediate. Findings:As above. Impression:Successful fluoroscopic guided 12 Kenyan right nephrostomy catheter exchange and 10.2 Kenyan by 24 cm left nephroureteral stent exchange as described above. Further management dictated by the clinical scenario. The nephrostomycatheter should be exchanged at the latest in three months. Thank you for the opportunity to assist in the care of your patient. Signed: Yaya Templeton MDReport Verified Date/Time: 2018 18:18:25 Reading Location: [place] [address] Angio Body Reading Room CBC W/ PLT COUNT & AUTO [id number] 17:21:00 Test Item Value Reference Range Comments WHITE BLOOD CELL COUNT (BEAKER) (test rauf=957) 13.6 K/ L 3.5-10.5 RED BLOOD CELL COUNT (BEAKER) (test lras=673) 2.91 M/ L 3.93-5.22 HEMOGLOBIN (BEAKER) (test ycah=789) 8.7 GM/DL 11.2-15.7 HEMATOCRIT (BEAKER) (test sdgi=009) 27.3 % 34.1-44.9 MEAN CORPUSCULAR VOLUME (BEAKER) (test jqua=624) 93.8 fL 79.4-94.8 MEAN CORPUSCULAR HEMOGLOBIN (BEAKER) (test 29.9 pg 25.6-32.2 dilf=395) MEAN CORPUSCULAR HEMOGLOBIN CONC (BEAKER) (test 31.9 GM/DL 32.2-35.5 rsrj=612) RED CELL DISTRIBUTION WIDTH (BEAKER) (test 16.2 % 11.7-14.4 rvrj=860) PLATELET COUNT (BEAKER) (test zfnk=549) 476 K/CU MM 150-450 MEAN PLATELET VOLUME (BEAKER) (test yadl=543) 9.5 fL 9.4-12.3 NUCLEATED RED BLOOD CELLS (BEAKER) (test 0 /100 WBC 0-0 hmgf=880) (CELLAVISION MANUAL DIFF)2019-08-15 17:21:00 Test Item Value Reference Range Comments NEUTROPHILS - REL (CELLAVISION)(BEAKER) (test 80 % eiec=3677) LYMPHOCYTES - REL (CELLAVISION)(BEAKER) (test 9 % ijgk=4712) MONOCYTES - REL (CELLAVISION)(BEAKER) (test 8 % hfef=7161) METAMYELOCYTES - REL (CELLAVISION)(BEAKER) (test 1 % 0-0 cxpw=9556) MYELOCYTES - REL (CELLAVISION)(BEAKER) (test 1 % 0-0 znpe=4541) BANDS - REL (CELLAVISION)(BEAKER) (test 1 % 0-10 owqy=4907) NEUTROPHILS - ABS (CELLAVISION)(BEAKER) (test 10.88 K/ul 1.56-6.13 rkhw=9235) LYMPHOCYTES - ABS (CELLAVISION)(BEAKER) (test 1.22 K/ul 1.18-3.74 ukmr=5013) MONOCYTES - ABS (CELLAVISION)(BEAKER) (test 1.09 K/uL 0.24-0.36 mpwl=7992) METAMYELOCYTES - ABS (CELLAVISION)(BEAKER) (test 0.14 K/uL 0.00-0.00 ekrx=4363) MYELOCYTES-ABS (CELLAVISION)(BEAKER) (test 0.14 K/uL 0.00-0.00 wblj=5755) BANDS - ABS (CELLAVISION)(BEAKER) (test 0.14 K/uL 0.00-0.80 ajdy=4310) TOTAL COUNTED (BEAKER) (test edtf=4042) 100 WBC MORPHOLOGY (BEAKER) (test uzer=831) Normal GIANT PLATELETS (BEAKER) (test ailc=550) Present POLYCHROMATOPHILLIC RBCS(BEAKER) (test elid=516) 1+ few POIKILOCYTES (BEAKER) (test uozp=304) 1+ few TARGET CELLS (BEAKER) (test lsrh=859) 1+ few OVALOCYTES (BEAKER) (test clyj=264) 1+ few PLATELET CONCENTRATION (CELLAVISION)(BEAKER) Increased (test pqtr=1725) Received comment: User comments: Slide comments:BASIC METABOLIC [id number] 17:15:00 Test Item Value Reference Range Comments SODIUM (BEAKER) (test 137 meq/L 136-145 hudw=468) POTASSIUM (BEAKER) (test 4.0 meq/L 3.5-5.1 pvxo=915) CHLORIDE (BEAKER) (test 103 meq/L 98-107 enuz=524) CO2 (BEAKER) (test 24 meq/L 22-29 rhvw=650) BLOOD UREA NITROGEN 35 mg/dL 7-21 (BEAKER) (test umfc=999) CREATININE (BEAKER) (test 1.53 mg/dL 0.57-1.25 mfvw=852) GLUCOSE RANDOM (BEAKER) 146 mg/dL 70-105 (test pqno=146) CALCIUM (BEAKER) (test 9.2 mg/dL 8.4-10.2 blhy=502) EGFR (BEAKER) (test 33 mL/min/1.73 sq m ESTIMATED GFR IS NOT efia=8757) ACCURATE CREATININE CLEARANCE IN PREDICTING GLOMERULAR FILTRATION RATE. ESTIMATED GFR IS NOT APPLICABLE FOR DIALYSIS PATIENTS. URINALYSIS W/ REFLEX URINE [id number] 17:12:00 Test Item Value Reference Range Comments COLOR (BEAKER) (test wijo=760) Dark Red CLARITY (BEAKER) (test omfk=997) Turbid SPECIFIC GRAVITY UA (BEAKER) (test jnqv=601) 1.015 1.001-1.035 PH UA (BEAKER) (test vhqh=608) 7.0 5.0-8.0 PROTEIN UA (BEAKER) (test uali=705) 200 mg/dL Negative GLUCOSE UA (BEAKER) (test byuu=314) Negative Negative KETONES UA (BEAKER) (test mzur=441) Negative Negative BILIRUBIN UA (BEAKER) (test cxcl=805) Negative Negative BLOOD UA (BEAKER) (test wntc=886) Large Negative NITRITE UA (BEAKER) (test pyhj=846) Negative Negative LEUKOCYTE ESTERASE UA (BEAKER) (test fukg=638) Large Negative UROBILINOGEN UA (BEAKER) (test glhq=835) 0.2 mg/dL 0.2-1.0 RBC UA (BEAKER) (test rxjh=056) > /HPF WBC UA (BEAKER) (test xkqg=125) > /HPF SOURCE(BEAKER) (test zmmw=9376) [id number] 12:26:00 Test Item Value Reference Range Comments MAGNESIUM (BEAKER) (test cxux=254) 1.8 mg/dL 1.6-2.6 BASIC METABOLIC [id number] 12:26:00 Test Item Value Reference Range Comments SODIUM (BEAKER) (test 136 meq/L 136-145 fhro=601) POTASSIUM (BEAKER) (test 3.4 meq/L 3.5-5.1 btcc=591) CHLORIDE (BEAKER) (test 94 meq/L 98-107 rkkt=736) CO2 (BEAKER) (test 31 meq/L 22-29 sjhe=568) BLOOD UREA NITROGEN 38 mg/dL 7-21 (BEAKER) (test vwzs=465) CREATININE (BEAKER) (test 1.25 mg/dL 0.57-1.25 qzeg=951) GLUCOSE RANDOM (BEAKER) 105 mg/dL 70-105 (test moym=741) CALCIUM (BEAKER) (test 9.5 mg/dL 8.4-10.2 hitj=139) EGFR (BEAKER) (test 42 mL/min/1.73 sq m ESTIMATED GFR IS NOT mcyn=8086) ACCURATE CREATININE CLEARANCE IN PREDICTING GLOMERULAR FILTRATION RATE. ESTIMATED GFR IS NOT APPLICABLE FOR DIALYSIS PATIENTS. ANG, NEPHROSTOMY TUBE CHANGE, [id number] 13:53:00Reason for Exam:-> hydronephrosis unspecifiedFINAL REPORT Fluoroscopic guided right nephrostomy and left nephroureterostomy catheter exchange. History: Chronic ureteral obstruction Modality: Fluoroscopy Sedation: None Product Marketing Coordinator : Gerald Baeza MD. Press Clippings Cutter And Paster: None. Approach: Via indwelling bilateral catheters Estimated [...] The Glidewire was exchanged over a 4 Kenyan Walsh catheter for a 0.035 inch Bentson wire. A new 10.2 Kenyan by 24 cm nephroureterostomy catheter was advanced [...] through the indwelling catheter. Subsequently, a 4 Kenyan Walsh catheter and 0.035 angled Glidewire was advanced alongside the catheter and access to the right renal pelvis was obtained. The existing catheter was removed. The Glidewire was exchanged for a 0.035 Bentson wire. A new 12 Kenyan nephrostomy catheter wasadvanced over wire with pigtail formed within the right renal pelvis. The catheter was fixed to the skin with silk suture. A sterile dressing was applied. The patient tolerated the procedure without immediate complication. Impression: Successful fluoroscopic guided left percutaneous nephroureterostomy and right sided percutaneous nephrostomy catheter exchange. Signed: Gerald Baeza Verified Date/Time: 06/02/2019 13:53:40 Reading Location: [place] [address] Angio Body Reading Room Electronically signed by: GERALD BAEZA MD on 2018 01:53 PMANG, NEPHROSTOMY TUBE CHANGE, [id number] 19:15:00Reason for Exam:->hydronephrosis unspecifiedFINAL REPORT History : [...] was then cut and removed over a Geniuzz wire. A new 12 Kenyan external nephrostomy catheter was placed over the [...] removed over a wire. A new 10 Kenyan by 24 cm nephroureteral stent was placed [...] as (Ka,r): 45 mGy Signed: Leslie العراقي Verified Date/ Time: 02/23/2019 19:15:22 Reading Location: [facility] P048 Angio Body Reading Room BASI METABOLIC [id number] 11:18:00 Test Item Value Reference Range Comments SODIUM (BEAKER) (test 137 meq/L 136-145 ulnf=972) POTASSIUM (BEAKER) (test 4.4 meq/L 3.5-5.1 bwwn=963) CHLORIDE (BEAKER) (test 106 meq/L 98-107 yobg=292) CO2 (BEAKER) (test 23 meq/L 22-29 quzk=367) BLOOD UREA NITROGEN 32 mg/dL 7-21 (BEAKER) (test mhfb=570) CREATININE (BEAKER) (test 1.10 mg/dL 0.57-1.25 mfyw=810) GLUCOSE RANDOM (BEAKER) 128 mg/dL 70-105 (test oboo=745) CALCIUM (BEAKER) (test 9.2 mg/dL 8.4-10.2 wymx=762) EGFR (BEAKER) (test 48 mL/min/1.73 sq m ESTIMATED GFR IS NOT lisk=4138) ACCURATE CREATININE CLEARANCE IN PREDICTING GLOMERULAR FILTRATION RATE. ESTIMATED GFR IS NOT APPLICABLE FOR DIALYSIS PATIENTS. ANG, NEPHROSTOMY TUBE CHANGE, [id number] 17:38:00Reason for Exam:-> n13.30FINAL REPORT Fluoroscopic guided right nephrostomy tube and left nephroureterostomy catheter replacement, 11/25/2018. Clinical History: Ureteral obstruction. Modality: Fluoroscopy. Product Marketing Coordinator : Jenny. Press Clippings Cutter And Paster: Macario. Sedation: None. Estimated Blood Loss: Less [...] catheter was removed and a new 10.2 Kenyan x 24 cm nephrostomy catheter was advancedover [...] catheter was removed and a new 12 Kenyan drainage catheter was advanced over the wire [...] Verified Date/Time: 11/25/2018 17: 38:15 Reading Location: [place] [address] Angio Body Reading Room 05:38 PMANG, NEPHROSTOMY TUBE CHANGE, [id number] 14:10:00Reason for Exam:->hydronephrosis unspecified hydronephrosis typeFINAL REPORT Right percutaneous nephrostomy and left percutaneous nephroureterostomy catheter exchange. History: Ureteral obstruction Modality: fluoroscopy. Sedation: None Product Marketing Coordinator: Gerald Baeza MD. Press Clippings Cutter And Paster: None. Approach: Lashonda Oakes (resident) Estimated blood [...] removed over wire and a new 12 Kenyan nephrostomy catheter was advanced over wire with [...] catheter was removed and a new 8.5 Kenyan by 24 cm nephroureterostomy catheter was advanced [...] left nephroureterostomy catheter exchange. Signed: Gerald Baeza MDReport Verified Date/Time: 2017 14:10:12 Reading Location: [place] [address] Angio Body Reading Room [id number] 12:58:00 Test Item Value Reference Range Comments PROTIME (BEAKER) (test ncbx=364) 13.3 seconds 11.7-14.7 INR (BEAKER) (test jthx=585) 1.0 <=5.9 PARTIAL THROMBOPLASTIN TIME (BEAKER) (test 29.4 seconds 22.5-36.0 spcr=599) RECOMMENDED COUMADIN/WARFARIN INR THERAPY RANGESSTANDARD DOSE: 2.0 - 3.0 Includes: PROPHYLAXIS forvenous thrombosis, systemic embolization; TREATMENT for venous thrombosis and/or pulmonary embolus.HIGH RISK: Target INR is 2.5-3.5 for patients with mechanical heart valves.BASIC METABOLIC [id number] 12:19: 00 Test Item Value Reference Range Comments SODIUM (BEAKER) (test 138 meq/L 136-145 tmri=687) POTASSIUM (BEAKER) (test 4.2 meq/L 3.5-5.1 rfcz=525) CHLORIDE (BEAKER) (test 101 meq/L 98-107 qsyz=634) CO2 (BEAKER) (test 25 meq/L 22-29 wwoz=613) BLOOD UREA NITROGEN 36 mg/dL 7-21 (BEAKER) (test xosu=319) CREATININE (BEAKER) (test 1.20 mg/dL 0.57-1.25 yvhu=670) GLUCOSE RANDOM (BEAKER) 60 mg/dL 70-105 (test mgdi=740) CALCIUM (BEAKER) (test 9.3 mg/dL 8.4-10.2 qcnx=103) EGFR (BEAKER) (test 44 mL/min/1.73 sq m ESTIMATED GFR IS NOT ilxg=9963) ACCURATE CREATININE CLEARANCE IN PREDICTING GLOMERULAR FILTRATION RATE. ESTIMATED GFR IS NOT APPLICABLE FOR DIALYSIS PATIENTS. [id number] 11:43:00 Test Item Value Reference Range Comments PROTIME (BEAKER) (test bqiy=873) 13.1 seconds 11.7-14.7 INR (BEAKER) (test zzqf=295) 1.0 <=5.9 PARTIAL THROMBOPLASTIN TIME (BEAKER) (test 30.4 seconds 22.5-36.0 jhcv=814) RECOMMENDED COUMADIN/WARFARIN INR THERAPY RANGESSTANDARD DOSE: 2.0 - 3.0 Includes: PROPHYLAXIS forvenous thrombosis, systemic embolization; TREATMENT for venous thrombosis and/or pulmonary embolus.HIGH RISK: Target INR is 2.5-3.5 for patients with mechanical heart valves.CBC W/PLT COUNT & AUTO [id number] 11:03:00 Test Item Value Reference Range Comments WHITE BLOOD CELL COUNT (BEAKER) (test vvrx=879) 8.0 K/ L 3.5-10.5 RED BLOOD CELL COUNT (BEAKER) (test liaz=602) 3.39 M/ L 3.93-5.22 HEMOGLOBIN (BEAKER) (test zwgj=253) 10.8 GM/DL 11.2-15.7 HEMATOCRIT (BEAKER) (test xszm=012) 36.3 % 34.1-44.9 MEAN CORPUSCULAR VOLUME (BEAKER) (test stmy=917) 107.1 fL 79.4-94.8 MEAN CORPUSCULAR HEMOGLOBIN (BEAKER) (test 31.9 pg 25.6-32.2 vvhw=579) MEAN CORPUSCULAR HEMOGLOBIN CONC (BEAKER) (test 29.8 GM/DL 32.2-35.5 urei=917) RED CELL DISTRIBUTION WIDTH (BEAKER) (test 15.4 % 11.7-14.4 jrmx=363) PLATELET COUNT (BEAKER) (test bpyd=817) 237 K/CU MM 150-450 MEAN PLATELET VOLUME (BEAKER) (test empk=164) 11.2 fL 9.4-12.3 NUCLEATED RED BLOOD CELLS (BEAKER) (test 0 /100 WBC 0-0 yhdz=657) NEUTROPHILS RELATIVE PERCENT (BEAKER) (test 70 % txsf=461) LYMPHOCYTES RELATIVE PERCENT (BEAKER) (test 18 % sgba=944) MONOCYTES RELATIVE PERCENT (BEAKER) (test 11 % gwqz=063) EOSINOPHILS RELATIVE PERCENT (BEAKER) (test 1 % xhud=980) BASOPHILS RELATIVE PERCENT (BEAKER) (test 0 % glun=706) NEUTROPHILS ABSOLUTE COUNT (BEAKER) (test 5.56 K/ L 1.56-6.13 pctt=480) LYMPHOCYTES ABSOLUTE COUNT (BEAKER) (test 1.45 K/ L 1.18-3.74 kpbu=044) MONOCYTES ABSOLUTE COUNT (BEAKER) (test 0.85 K/ L 0.24-0.36 mprp=676) EOSINOPHILS ABSOLUTE COUNT (BEAKER) (test 0.06 K/ L 0.04-0.36 ceig=603) BASOPHILS ABSOLUTE COUNT (BEAKER) (test 0.03 K/ L 0.01-0.08 jcmr=989) IMMATURE GRANULOCYTES-RELATIVE PERCENT (BEAKER) 0 % 0-1 (test dtlu=1510) HARPREET, REM W/ FLUORO NEPH, TUBE [id number] 19:42:00FINAL REPORT Fluoroscopic guided bilateral nephrostomy tube exchange, 05/06/2018. Clinical History: Ureteral obstruction, clogged right PCN. Modality: Fluoroscopy. Product Marketing Coordinator: Jenny. Press Clippings Cutter And Paster: Biju. Sedation: None. Estimated Blood Loss: Less [...] catheter was removed and a new 8 Kenyan 24 cm nephroureterostomy catheter was advanced over the wire into the bladder. Pigtail was locked. Contrast was injected into the right PCN. A Glidewire was advanced through the catheter and curled within the right renal pelvis. The old catheter was removed and a new 12 Kenyan pigtail catheter was placed into the right [...] Verified Date/ Time: 05/06/2018 19:42:30 Reading Location: [place] [address] Angio Body Reading Room URINE [id number] 12:31:00 Test Item Value Reference Range Comments CULTURE (BEAKER) (test yetd=6393) >100,000 col/mL skin thomas ANG, NEPHROSTOMY TUBE CHANGE, [id number] 17:42:00Reason for exam:->Tube not drainingFINAL REPORT Right nephrostomy catheter exchange. History: Malfunction right nephrostomy catheter Modality: Fluoroscopy Sedation:None Product Marketing Coordinator: Gerald Baeza MD. Press Clippings Cutter And Paster: None. Approach: Right flank Estimated blood loss: [...] was removed over wire. A new 10.2 Kenyan nephrostomy catheter was advanced over wire with pigtail formed within the right renal pelvis. Contrast injection confirmed positioning. The catheter was fixed to the skin withsilk suture. A sterile dressing was applied. The patient tolerated the procedure well without immediate application. Impression: Successful right percutaneous nephrostomy catheter exchange. Signed: Gerald Baeza MDReport Verified Date/Time: 04/09/2018 17:42:07 Reading Location: [place] [address] Angio Body Reading Room URINALYSIS W/ [id number] 14 :48:00 Test Item Value Reference Range Comments COLOR (BEAKER) (test zcci=138) Yellow CLARITY (BEAKER) (test mpfh=312) Hazy SPECIFIC GRAVITY UA (BEAKER) (test pikm=676) 1.013 1.001-1.035 PH UA (BEAKER) (test kpmb=573) 8.5 5.0-8.0 PROTEIN UA (BEAKER) (test xfal=432) 300 mg/dL Negative GLUCOSE UA (BEAKER) (test xnje=075) Negative Negative KETONES UA (BEAKER) (test qqkt=865) Negative Negative BILIRUBIN UA (BEAKER) (test urlf=564) Negative Negative BLOOD UA (BEAKER) (test qgqk=081) Trace Negative NITRITE UA (BEAKER) (test perv=314) Negative Negative LEUKOCYTE ESTERASE UA (BEAKER) (test qyfc=239) Large Negative UROBILINOGEN UA (BEAKER) (test exgk=608) 0.2 mg/dL 0.2-1.0 RBC UA (BEAKER) (test cors=138) 23 /HPF WBC UA (BEAKER) (test yqts=593) 0 /HPF MUCUS (BEAKER) (test plxi=1986) Occasional TRIPLE PHOSPHATE CRYSTALS (BEAKER) (test Occasional ytlw=1854) SOURCE(BEAKER) (test cako=6564) Urine, [place] BASIC METABOLIC [id number] 14:16:00 Test Item Value Reference Range Comments SODIUM (BEAKER) (test 138 meq/L 136-145 olcu=748) POTASSIUM (BEAKER) (test 3.8 meq/L 3.5-5.1 bmes=543) CHLORIDE (BEAKER) (test 104 meq/L 98-107 cslo=923) CO2 (BEAKER) (test 23 meq/L 22-29 vszq=301) BLOOD UREA NITROGEN 30 mg/dL 7-21 (BEAKER) (test zccy=632) CREATININE (BEAKER) (test 1.00 mg/dL 0.57-1.25 uebb=814) GLUCOSE RANDOM (BEAKER) 89 mg/dL 70-105 (test uonl=687) CALCIUM (BEAKER) (test 9.6 mg/dL 8.4-10.2 weop=911) EGFR (BEAKER) (test 54 mL/min/1.73 sq m ESTIMATED GFR IS NOT lbic=5216) ACCURATE CREATININE CLEARANCE IN PREDICTING GLOMERULAR FILTRATION RATE. ESTIMATED GFR IS NOT APPLICABLE FOR DIALYSIS PATIENTS. [id number] 14:06:00 Test Item Value Reference Range Comments PROTIME (BEAKER) (test zobd=878) 13.8 seconds 11.7-14.7 INR (BEAKER) (test odxr=142) 1.1 <=5.9 PARTIAL THROMBOPLASTIN TIME (BEAKER) (test 30.3 seconds 22.5-36.0 znur=465) RECOMMENDED COUMADIN/WARFARIN INR THERAPY RANGESSTANDARD DOSE: 2.0 - 3.0 Includes: PROPHYLAXIS forvenous thrombosis, systemic embolization; TREATMENT for venous thrombosis and/or pulmonary embolus.HIGH RISK: Target INR is 2.5-3.5 for patients with mechanical heart valves.CBC W/PLT COUNT & AUTO [id number] 13:53:00 Test Item Value Reference Range Comments WHITE BLOOD CELL COUNT (BEAKER) (test eoxa=023) 7.1 K/ L 3.5-10.5 RED BLOOD CELL COUNT (BEAKER) (test ftlw=988) 3.32 M/ L 3.93-5.22 HEMOGLOBIN (BEAKER) (test ztwa=010) 10.5 GM/DL 11.2-15.7 HEMATOCRIT (BEAKER) (test tzsq=291) 32.0 % 34.1-44.9 MEAN CORPUSCULAR VOLUME (BEAKER) (test rhnf=615) 96.4 fL 79.4-94.8 MEAN CORPUSCULAR HEMOGLOBIN (BEAKER) (test 31.6 pg 25.6-32.2 hvhy=457) MEAN CORPUSCULAR HEMOGLOBIN CONC (BEAKER) (test 32.8 GM/DL 32.2-35.5 mclr=004) RED CELL DISTRIBUTION WIDTH (BEAKER) (test 14.6 % 11.7-14.4 nznx=386) PLATELET COUNT (BEAKER) (test rqeb=826) 228 K/CU MM 150-450 MEAN PLATELET VOLUME (BEAKER) (test jitf=225) 10.8 fL 9.4-12.3 NUCLEATED RED BLOOD CELLS (BEAKER) (test 0 /100 WBC 0-0 daca=124) NEUTROPHILS RELATIVE PERCENT (BEAKER) (test 68 % wqav=914) LYMPHOCYTES RELATIVE PERCENT (BEAKER) (test 18 % guly=487) MONOCYTES RELATIVE PERCENT (BEAKER) (test 13 % vtbf=972) EOSINOPHILS RELATIVE PERCENT (BEAKER) (test 1 % llmw=794) BASOPHILS RELATIVE PERCENT (BEAKER) (test 0 % ngda=026) NEUTROPHILS ABSOLUTE COUNT (BEAKER) (test 4.78 K/ L 1.56-6.13 cryh=301) LYMPHOCYTES ABSOLUTE COUNT (BEAKER) (test 1.24 K/ L 1.18-3.74 chjo=862) MONOCYTES ABSOLUTE COUNT (BEAKER) (test 0.91 K/ L 0.24-0.36 jimr=192) EOSINOPHILS ABSOLUTE COUNT (BEAKER) (test 0.07 K/ L 0.04-0.36 hnin=347) BASOPHILS ABSOLUTE COUNT (BEAKER) (test 0.02 K/ L 0.01-0.08 retr=430) IMMATURE GRANULOCYTES-RELATIVE PERCENT (BEAKER) 0 % 0-1 (test jcjm=9351) HARPREET NEPHROSTOMY TUBE CHANGE, [id number] 09:41:00Reason for exam:-> dysfunction nephrostomy tube on [...] removed over a wire. A new 10.2 Kenyan pigtail nephrostomy catheter was placed over the [...] Leslie العراقي Verified Date/Time: 03/15/2018 09:41:31 Reading Location:[facility] P048 Angio Body Reading Room ANG, NEPHROSTOMY TUBE CHANGE, [id number] 16:05:00Reason for Exam:->n13.30FINAL REPORT Left percutaneous nephroureterostomy and right percutaneous nephrostomy catheter exchange. History: 77 -year-old female with history of ureteral strictures presents for routine catheter exchange. Modality: FluoroscopySedation: None Product Marketing Coordinator: Gerald Baeza MD. Press Clippings Cutter And Paster: None. Approach: Bilateral flanks Estimated blood loss: [...] for performing radiologist and scrub technologist. A hearing therapy director image images was obtained. Contrast was injected through the indwelling left percutaneous nephroureterostomy catheter confirming position. 2% lidocaine was used for local anesthesia. The indwelling catheter was cut and a 0.035 Bentson wire was advanced and coiled within the urinary bladder. The existing catheter was removed over wire and a new 8.5 Kenyan by 22 cm nephroureterostomy was advanced over [...] was removed thewire and a new 10.2 Kenyan pigtail catheter was advanced over wire with pigtail formed within the right renal pelvis. The catheter was fixed to the skin with silk suture and dressing was applied. The patient tolerated the procedure well without immediate complication. Impression: Successful fluoroscopic-guided left percutaneous nephroureterostomy and right percutaneous nephrostomy catheter exchange. Signed: Gerald Baeza MDReport Verified Date/Time: 02/24/2018 16:05:12 Reading Location: [facility] P048 Angio Body Reading Room Electronically signed by: GERALD BAEZA MD on 2017 04:05 PMANG, NEPHROSTOMY TUBE CHANGE, [id number] 16:05:00Reason for Exam:->n13.30FINAL REPORT Left percutaneous nephroureterostomy and right percutaneous nephrostomy catheter exchange. History: 77-year-old female with history of ureteral strictures presents for routine catheter exchange. Modality: FluoroscopySedation: None Product Marketing Coordinator: Gerald Baeza MD. Press Clippings Cutter And Paster: None. Approach: Bilateral flanks Estimated blood loss: [...] for performing radiologist and scrub technologist. A hearing therapy director image images was obtained. Contrast was injected through the indwelling left percutaneous nephroureterostomy catheter confirming position. 2% lidocaine was used for local anesthesia. The indwelling catheter was cut and a 0.035 Bentson wire was advanced and coiled within the urinary bladder. The existing catheter was removed over wire and a new 8.5 Kenyan by 22 cm nephroureterostomy was advanced over [...] was removed thewire and a new 10.2 Kenyan pigtail catheter was advanced over wire with pigtail formed within the right renal pelvis. The catheter was fixed to the skin with silk suture and dressing was applied. The patient tolerated the procedure well without immediate complication. Impression: Successful fluoroscopic-guided left percutaneous nephroureterostomy and right percutaneous nephrostomy catheter exchange. Signed: Gerald Baezaort Verified Date/Time: 02/24/2018 16:05:12 Reading Location: [place] [address] Angio Body Reading Room Electronically signed by: GERALD BAEZA MD on 2017 04:05 PMANG, NEPHROSTOMY TUBE CHANGE, [id number] 17:02:00Reason for exam:->ABDOMINAL PAIN, flank pain, blockageFINAL [...] removed over a Bentsonwire. A new 10.2 Kenyan pigtail nephrostomy catheter was placed over the [...] Verified Date/Time : 12/29/2017 17:02:02 Reading Location: [place] [address] Angio Body Reading Room URINE [id number] 12:00:00 Test Item Value Reference Range Comments CULTURE (BEAKER) (test mwom=0112) >100,000 col/mL skin thomas URINALYSIS W/ [id number] 10:15:00 Test Item Value Reference Range Comments COLOR (BEAKER) (test sbef=939) Mulat CLARITY (BEAKER) (test zlsc=268) Cloudy SPECIFIC GRAVITY UA (BEAKER) (test 1.021 1.001-1.035 xgkh=839) PH UA (BEAKER) (test spjd=782) 8.5 5.0-8.0 PROTEIN UA (BEAKER) (test gfwm=608) >600 mg/dL Negative GLUCOSE UA (BEAKER) (test bnub=009) Negative Negative KETONES UA (BEAKER) (test ghfi=314) Negative Negative BILIRUBIN UA (BEAKER) (test rbsa=457) Positive Negative BLOOD UA (BEAKER) (test tvka=918) Negative Negative NITRITE UA (BEAKER) (test yxgr=936) Positive Negative LEUKOCYTE ESTERASE UA (BEAKER) (test Small Negative dvpo=955) UROBILINOGEN UA (BEAKER) (test fhpn=804) 2.0 mg/dL 0.2-1.0 RBC UA (BEAKER) (test xudv=030) 0 /HPF WBC UA (BEAKER) (test mfrn=192) 94 /HPF MUCUS (BEAKER) (test bjqa=0963) Occasional TRIPLE PHOSPHATE CRYSTALS (BEAKER) (test Moderate tjuk=8882) SOURCE(BEAKER) (test rmqw=2229) Urine, Nephrostomy BASIC METABOLIC [id number] 10:04:00 Test Item Value Reference Range Comments SODIUM (BEAKER) (test 137 meq/L 136-145 etmf=937) POTASSIUM (BEAKER) (test 5.0 meq/L 3.5-5.1 mgud=006) CHLORIDE (BEAKER) (test 104 meq/L 98-107 siqv=243) CO2 (BEAKER) (test 25 meq/L 22-29 gvcx=205) BLOOD UREA NITROGEN 39 mg/dL 7-21 (BEAKER) (test fhbe=690) CREATININE (BEAKER) (test 1.13 mg/dL 0.57-1.25 qfar=964) GLUCOSE RANDOM (BEAKER) 127 mg/dL 70-105 (test akcw=283) CALCIUM (BEAKER) (test 9.0 mg/dL 8.4-10.2 atwf=249) EGFR (BEAKER) (test 47 mL/min/1.73 sq m ESTIMATED GFR IS NOT dwbw=3136) ACCURATE CREATININE CLEARANCE IN PREDICTING GLOMERULAR FILTRATION RATE. ESTIMATED GFR IS NOT APPLICABLE FOR DIALYSIS PATIENTS. [id number] 09:53:00 Test Item Value Reference Range Comments PROTIME (BEAKER) (test aimc=556) 13.0 seconds 11.7-14.7 INR (BEAKER) (test qomm=171) 1.0 <=5.9 PARTIAL THROMBOPLASTIN TIME (BEAKER) (test 28.9 seconds 22.5-36.0 wjos=727) RECOMMENDED COUMADIN/WARFARIN INR THERAPY RANGESSTANDARD DOSE: 2.0 - 3.0 Includes: PROPHYLAXIS forvenous thrombosis, systemic embolization; TREATMENT for venous thrombosis and/or pulmonary embolus.HIGH RISK: Target INR is 2.5-3.5 for patients with mechanical heart valves.CBC W/PLT COUNT & AUTO [id number] 09:52:00 Test Item Value Reference Range Comments WHITE BLOOD CELL COUNT (BEAKER) (test zehb=983) 10.4 K/ L 3.5-10.5 RED BLOOD CELL COUNT (BEAKER) (test qnub=757) 3.48 M/ L 3.93-5.22 HEMOGLOBIN (BEAKER) (test omkx=872) 10.8 GM/DL 11.2-15.7 HEMATOCRIT (BEAKER) (test ctiq=676) 34.4 % 34.1-44.9 MEAN CORPUSCULAR VOLUME (BEAKER) (test wyik=230) 98.9 fL 79.4-94.8 MEAN CORPUSCULAR HEMOGLOBIN (BEAKER) (test 31.0 pg 25.6-32.2 jcdw=556) MEAN CORPUSCULAR HEMOGLOBIN CONC (BEAKER) (test 31.4 GM/DL 32.2-35.5 cheb=730) RED CELL DISTRIBUTION WIDTH (BEAKER) (test 14.0 % 11.7-14.4 wrsa=023) PLATELET COUNT (BEAKER) (test ctkq=699) 255 K/CU MM 150-450 MEAN PLATELET VOLUME (BEAKER) (test vgmf=745) 10.6 fL 9.4-12.3 NUCLEATED RED BLOOD CELLS (BEAKER) (test 0 /100 WBC 0-0 nnkj=950) NEUTROPHILS RELATIVE PERCENT (BEAKER) (test 82 % bktl=032) LYMPHOCYTES RELATIVE PERCENT (BEAKER) (test 9 % vgtq=561) MONOCYTES RELATIVE PERCENT (BEAKER) (test 8 % hado=657) EOSINOPHILS RELATIVE PERCENT (BEAKER) (test 1 % jbzz=177) BASOPHILS RELATIVE PERCENT (BEAKER) (test 0 % uyyn=107) NEUTROPHILS ABSOLUTE COUNT (BEAKER) (test 8.58 K/ L 1.56-6.13 yjtn=625) LYMPHOCYTES ABSOLUTE COUNT (BEAKER) (test 0.95 K/ L 1.18-3.74 nwla=705) MONOCYTES ABSOLUTE COUNT (BEAKER) (test 0.79 K/ L 0.24-0.36 rrer=604) EOSINOPHILS ABSOLUTE COUNT (BEAKER) (test 0.05 K/ L 0.04-0.36 gtqs=173) BASOPHILS ABSOLUTE COUNT (BEAKER) (test 0.02 K/ L 0.01-0.08 vlud=784) IMMATURE GRANULOCYTES-RELATIVE PERCENT (BEAKER) 0 % 0-1 (test mcph=8732) URINE [id number] 09:49:00 Test Item Value Reference Range Comments CULTURE (BEAKER) (test vxhe=3300) Amikacin (test code=1) Susceptible 0-16 , Resistant <0 or >16 Aztreonam (test code=32) Susceptible 0-8 , Resistant <0 or >8 Cefepime (test code=51) Susceptible 0-8 , Resistant <0 or >8 Ceftazidime (test code=27) Susceptible 0-8 , Resistant <0 or >8 Ciprofloxacin (test code=7) Susceptible 0-1 , Resistant <0 or >1 Doripenem (test pdui=480) Susceptible 0-2 , Resistant <0 or >2 [...] or >4 CULTURE (BEAKER) (test 80-89,000 col/mL whta=6288) Pseudomonas aeruginosa >100,000 col/mL skin floraANG, NEPHROSTOMY TUBE CHANGE, [id number] 09:10: 00Reason for exam:->ABDOMINAL PAINFINAL REPORT Fluoroscopic guided bilateral nephrostomy tube exchange ClinicalHistory: Abdominal pain, bilateral percutaneous nephrostomy catheter. Modality: Sonography and fluoroscopy Product Marketing Coordinator: Star Brown MD. Press Clippings Cutter And Paster : None.. SEDATION: None. Estimated Blood Loss: [...] catheter into the bladder. A new 8.5 Kenyan by 24 cm nephroureteral catheter was placed. [...] catheter into the bladder. A new 10 Kenyan pigtail catheter was placed. The wire was [...] Impression: 1. Uncomplicated exchange of left 8.5 Kenyan by 24 cm nephroureteral catheter. 2. Uncomplicated exchange of right 10 Kenyan percutaneous nephrostomy catheter. Signed: Star Brown MDReportVerified Date/Time: 12/14/2017 09:10:40 Reading Location: [facility] B1 C013Y CT Body Reading Room Electronically signed by: STAR BROWN MD on 10/2018 09:10 AMANG, NEPHROSTOMY TUBE CHANGE, [id number] 09:10:00Reason for exam:->ABDOMINAL PAINFINAL REPORT Fluoroscopic guided bilateral nephrostomy tube exchange ClinicalHistory: Abdominal pain, bilateral percutaneous nephrostomy catheter. Modality: Sonography and fluoroscopy Product Marketing Coordinator: Star Brown MD. Press Clippings Cutter And Paster: None.. SEDATION: None. Estimated Blood Loss: Less [...] catheter into the bladder. A new 8.5 Kenyan by 24 cm nephroureteral catheter was placed. [...] catheter into the bladder. A new 10 Kenyan pigtail catheter was placed. The wire was [...] Impression: 1. Uncomplicated exchange of left 8.5 Kenyan by 24 cm nephroureteral catheter. 2. Uncomplicated exchange of right 10 Kenyan percutaneous nephrostomy catheter. Signed: Star Brown MDReportVerified Date/Time: 12/14/2017 09:10:40 Reading Location: [facility] B1 C013Y CT Body Reading Room Electronically signed by: STAR BROWN MD on 10/2018 09:10 AMCBC W/PLT COUNT & AUTO [id number] 15:37:00 Test Item Value Reference Range Comments WHITE BLOOD CELL COUNT (BEAKER) (test mpnp=641) 11.1 K/ L 3.5-10.5 RED BLOOD CELL COUNT (BEAKER) (test aeha=551) 3.52 M/ L 3.93-5.22 HEMOGLOBIN (BEAKER) (test coas=313) 11.2 GM/DL 11.2-15.7 HEMATOCRIT (BEAKER) (test gidp=791) 35.3 % 34.1-44.9 MEAN CORPUSCULAR VOLUME (BEAKER) (test hjfs=933) 100.3 fL 79.4-94.8 MEAN CORPUSCULAR HEMOGLOBIN (BEAKER) (test 31.8 pg 25.6-32.2 lwuj=524) MEAN CORPUSCULAR HEMOGLOBIN CONC (BEAKER) (test 31.7 GM/DL 32.2-35.5 hyrw=488) RED CELL DISTRIBUTION WIDTH (BEAKER) (test 13.2 % 11.7-14.4 jyxy=208) PLATELET COUNT (BEAKER) (test noru=715) 353 K/CU MM 150-450 MEAN PLATELET VOLUME (BEAKER) (test dxph=531) 10.6 fL 9.4-12.3 NUCLEATED RED BLOOD CELLS (BEAKER) (test 0 /100 WBC 0-0 vxuq=294) NEUTROPHILS RELATIVE PERCENT (BEAKER) (test 83 % bjmb=371) LYMPHOCYTES RELATIVE PERCENT (BEAKER) (test 8 % itbg=468) MONOCYTES RELATIVE PERCENT (BEAKER) (test 8 % byus=736) EOSINOPHILS RELATIVE PERCENT (BEAKER) (test 1 % uyls=047) BASOPHILS RELATIVE PERCENT (BEAKER) (test 0 % zfqx=753) NEUTROPHILS ABSOLUTE COUNT (BEAKER) (test 9.20 K/ L 1.56-6.13 gafr=856) LYMPHOCYTES ABSOLUTE COUNT (BEAKER) (test 0.87 K/ L 1.18-3.74 omci=508) MONOCYTES ABSOLUTE COUNT (BEAKER) (test 0.91 K/ L 0.24-0.36 zjlz=701) EOSINOPHILS ABSOLUTE COUNT (BEAKER) (test 0.07 K/ L 0.04-0.36 imzk=951) BASOPHILS ABSOLUTE COUNT (BEAKER) (test 0.03 K/ L 0.01-0.08 cgoa=244) IMMATURE GRANULOCYTES-RELATIVE PERCENT (BEAKER) 1 % 0-1 (test cnry=4786) BASIC METABOLIC [id number] 15:27:00 Test Item Value Reference Range Comments SODIUM (BEAKER) (test 132 meq/L 136-145 naqr=094) POTASSIUM (BEAKER) (test 5.1 meq/L 3.5-5.1 smyp=049) CHLORIDE (BEAKER) (test 99 meq/L 98-107 ajqh=630) CO2 (BEAKER) (test 24 meq/L 22-29 ttuk=858) BLOOD UREA NITROGEN 36 mg/dL 7-21 (BEAKER) (test ciyj=017) CREATININE (BEAKER) (test 1.25 mg/dL 0.57-1.25 sqak=171) GLUCOSE RANDOM (BEAKER) 117 mg/dL 70-105 (test npxo=534) CALCIUM (BEAKER) (test 9.4 mg/dL 8.4-10.2 vpnh=450) EGFR (BEAKER) (test 42 mL/min/1.73 sq m ESTIMATED GFR IS NOT dcnd=2388) ACCURATE CREATININE CLEARANCE IN PREDICTING GLOMERULAR FILTRATION RATE. ESTIMATED GFR IS NOT APPLICABLE FOR DIALYSIS PATIENTS. URINALYSIS W/ [id number] 15:22:00 Test Item Value Reference Range Comments COLOR (BEAKER) (test misq=835) Light Yellow CLARITY (BEAKER) (test dtku=229) Hazy SPECIFIC GRAVITY UA (BEAKER) (test 1.007 1.001-1.035 wuvu=020) PH UA (BEAKER) (test oacf=829) 5.5 5.0-8.0 PROTEIN UA (BEAKER) (test eayn=396) 50 mg/dL Negative GLUCOSE UA (BEAKER) (test xzlq=543) Negative Negative KETONES UA (BEAKER) (test gypz=918) Negative Negative BILIRUBIN UA (BEAKER) (test ikgl=742) Negative Negative BLOOD UA (BEAKER) (test ghsf=461) Small Negative NITRITE UA (BEAKER) (test xpim=558) Positive Negative LEUKOCYTE ESTERASE UA (BEAKER) (test Large Negative ekaj=564) UROBILINOGEN UA (BEAKER) (test vukg=828) 0.2 mg/dL 0.2-1.0 RBC UA (BEAKER) (test rwbw=415) 22 /HPF WBC UA (BEAKER) (test qtey=998) 24 /HPF MUCUS (BEAKER) (test bmph=1206) Rare SQUAMOUS EPITHELIAL (BEAKER) (test < /HPF ollq=811) HYALINE CASTS (BEAKER) (test tdvk=970) 2 /LPF SOURCE(BEAKER) (test zlpt=4152) Urine, Nephrostomy ANG, NEPHROSTOMY TUBE CHANGE, [id number] 18:37:00Reason for Exam:-> N13.30FINAL REPORT Procedure: Replacement [...] guidewire and replaced with a fresh 8.5 Kenyan device with its tip in the renal pelvis. Approximately 80 cc of urine were removed. The left nephroureteral stent was removed over guidewire and a fresh 8.5 Kenyan by 24 cm nephroureteral stent placed with itstip in the bladder. Contrast was injected into each of the nephrostomy catheters confirming satisfactory positioning. CONCLUSION: Replacement of bilateral nephrostomy catheters. Signed: Tha Cheung MDRjosuéort Verified Date/Time: 11/19 18:37:20 Reading Location: [place] [address] Angio Body Reading Room ANG, NEPHROSTOMY TUBE CHANGE, [id number] 15:09:00Reason for exam:->FLANK PAINFINAL REPORT Exam: Right [...] tube was exchanged for a new 8.5 Kenyan nephrostomy tube with the tip advanced to [...] MDReport Verified Date/Time: 10/31/2017 15:09:40 Reading Location: [place] [address] Angio Body Reading Room RAD, ABDOMEN, 2 OR MORE [id number] 14:41:00Reason for exam:->FLANK PAINFINAL REPORT Four views of the abdomen. IMPRESSION: None. IMPRESSION: Right nephrostomy and left nephroureterostomy catheters in position. Postsurgical changes are also seen in the lower lumbar spine and right hip. The bowel gas pattern is nonspecific. There are vascular calcifications. The osseous structures demonstrate degenerative change. No definite free intraperitoneal air. Signed: Haresh Scruggs MDReport Verified Date/ Time: 10/31/2017 14:41:15 Reading Location: [facility] [id number] Consult Reading Room BASI METABOLIC [id number] 12:03:00 Test Item Value Reference Range Comments SODIUM (BEAKER) (test 139 meq/L 136-145 ougd=196) POTASSIUM (BEAKER) (test 4.8 meq/L 3.5-5.1 fnjd=975) CHLORIDE (BEAKER) (test 106 meq/L 98-107 ytjl=756) CO2 (BEAKER) (test 22 meq/L 22-29 wjjv=751) BLOOD UREA NITROGEN 34 mg/dL 7-21 (BEAKER) (test tjna=864) CREATININE (BEAKER) (test 1.03 mg/dL 0.57-1.25 vehs=881) GLUCOSE RANDOM (BEAKER) 163 mg/dL 70-105 (test ehir=793) CALCIUM (BEAKER) (test 9.5 mg/dL 8.4-10.2 wfdc=377) EGFR (BEAKER) (test 52 mL/min/1.73 sq m ESTIMATED GFR IS NOT apoy=7978) ACCURATE CREATININE CLEARANCE IN PREDICTING GLOMERULAR FILTRATION RATE. ESTIMATED GFR IS NOT APPLICABLE FOR DIALYSIS PATIENTS. CBC W/PLT COUNT & AUTO [id number] 11:30:00 Test Item Value Reference Range Comments WHITE BLOOD CELL COUNT (BEAKER) (test ters=713) 9.1 K/ L 3.5-10.5 RED BLOOD CELL COUNT (BEAKER) (test oxmy=858) 3.56 M/ L 3.93-5.22 HEMOGLOBIN (BEAKER) (test exvu=104) 11.3 GM/DL 11.2-15.7 HEMATOCRIT (BEAKER) (test ouio=652) 35.6 % 34.1-44.9 MEAN CORPUSCULAR VOLUME (BEAKER) (test bydi=540) 100.0 fL 79.4-94.8 MEAN CORPUSCULAR HEMOGLOBIN (BEAKER) (test 31.7 pg 25.6-32.2 zshz=493) MEAN CORPUSCULAR HEMOGLOBIN CONC (BEAKER) (test 31.7 GM/DL 32.2-35.5 lqah=149) RED CELL DISTRIBUTION WIDTH (BEAKER) (test 14.3 % 11.7-14.4 xdhp=633) PLATELET COUNT (BEAKER) (test qsdc=557) 323 K/CU MM 150-450 MEAN PLATELET VOLUME (BEAKER) (test pzmm=010) 10.1 fL 9.4-12.3 NUCLEATED RED BLOOD CELLS (BEAKER) (test 0 /100 WBC 0-0 wbrs=427) NEUTROPHILS RELATIVE PERCENT (BEAKER) (test 86 % izst=574) LYMPHOCYTES RELATIVE PERCENT (BEAKER) (test 9 % ijvk=410) MONOCYTES RELATIVE PERCENT (BEAKER) (test 5 % jrgr=545) EOSINOPHILS RELATIVE PERCENT (BEAKER) (test 0 % xqrv=724) BASOPHILS RELATIVE PERCENT (BEAKER) (test 0 % yvvz=549) NEUTROPHILS ABSOLUTE COUNT (BEAKER) (test 7.75 K/ L 1.56-6.13 sitl=276) LYMPHOCYTES ABSOLUTE COUNT (BEAKER) (test 0.78 K/ L 1.18-3.74 dgfp=865) MONOCYTES ABSOLUTE COUNT (BEAKER) (test 0.47 K/ L 0.24-0.36 tzry=161) EOSINOPHILS ABSOLUTE COUNT (BEAKER) (test 0.00 K/ L 0.04-0.36 cujm=932) BASOPHILS ABSOLUTE COUNT (BEAKER) (test 0.02 K/ L 0.01-0.08 micu=380) IMMATURE GRANULOCYTES-RELATIVE PERCENT (BEAKER) 0 % 0-1 (test uogb=0346) [id number] 11:17:00 Test Item Value Reference Range Comments PROTIME (BEAKER) (test pvgd=099) 14.4 seconds 11.7-14.7 INR (BEAKER) (test vctj=520) 1.1 <=5.9 PARTIAL THROMBOPLASTIN TIME (BEAKER) (test 31.3 seconds 22.5-36.0 zsgq=677) RECOMMENDED COUMADIN/WARFARIN INR THERAPY RANGESSTANDARD DOSE: 2.0 - 3.0 Includes: PROPHYLAXIS forvenous thrombosis, systemic embolization; TREATMENT for venous thrombosis and/or pulmonary embolus.HIGH RISK: Target INR is 2.5-3.5 for patients with mechanical heart valves.BLOOD [id number] 11:00:00 Test Item Value Reference Range Comments CULTURE (BEAKER) (test iudh=3778) No growth in 5 days BLOOD [id number] 11:00:00 Test Item Value Reference Range Comments CULTURE (BEAKER) (test drrc=0579) No growth in 5 days URINE [id number] 10:04:00 Test Item Value Reference Range Comments CULTURE (BEAKER) (test asgl=7208) See comment >100,000 col/mL enteric organisms of >3 types including Pseudomonas species. No further workupperformed. Multiple organisms suggestive of colonization or contamination. Repeat collection recommended.URINE [id number] 13:38:00 Test Item Value Reference Range Comments CULTURE (BEAKER) (test uuec=9749) >100,000 col/mL skin thomas POCT-GLUCOSE [id number] 12:45:00 Test Item Value Reference Range Comments POC-GLUCOSE METER (BEAKER) 120 mg/dL 70-110 TESTED AT [address] (test evvz=6014) [place] [id number] POCT-GLUCOSE [id number] 07:39:00 Test Item Value Reference Range Comments POC-GLUCOSE METER (BEAKER) 80 mg/dL 70-110 TESTED AT [address] (test qqsr=9999) [facility] [address] CBC W/PLT COUNT & AUTO [id number] 06:22:00 Test Item Value Reference Range Comments WHITE BLOOD CELL COUNT (BEAKER) (test jwms=198) 12.7 K/ L 3.5-10.5 RED BLOOD CELL COUNT (BEAKER) (test wymb=083) 3.13 M/ L 3.93-5.22 HEMOGLOBIN (BEAKER) (test syak=563) 10.0 GM/DL 11.2-15.7 HEMATOCRIT (BEAKER) (test agwg=064) 31.2 % 34.1-44.9 MEAN CORPUSCULAR VOLUME (BEAKER) (test srdy=244) 99.7 fL 79.4-94.8 MEAN CORPUSCULAR HEMOGLOBIN (BEAKER) (test 31.9 pg 25.6-32.2 huwx=993) MEAN CORPUSCULAR HEMOGLOBIN CONC (BEAKER) (test 32.1 GM/DL 32.2-35.5 fnmh=184) RED CELL DISTRIBUTION WIDTH (BEAKER) (test 14.4 % 11.7-14.4 dhds=465) PLATELET COUNT (BEAKER) (test uefz=303) 239 K/CU MM 150-450 MEAN PLATELET VOLUME (BEAKER) (test wrxj=365) 10.5 fL 9.4-12.3 NUCLEATED RED BLOOD CELLS (BEAKER) (test 0 /100 WBC 0-0 xyau=709) NEUTROPHILS RELATIVE PERCENT (BEAKER) (test 81 % btuy=838) LYMPHOCYTES RELATIVE PERCENT (BEAKER) (test 7 % ebpg=963) MONOCYTES RELATIVE PERCENT (BEAKER) (test 9 % nteo=738) EOSINOPHILS RELATIVE PERCENT (BEAKER) (test 1 % qoeh=376) BASOPHILS RELATIVE PERCENT (BEAKER) (test 0 % esua=576) NEUTROPHILS ABSOLUTE COUNT (BEAKER) (test 10.34 K/ L 1.56-6.13 cfcn=096) LYMPHOCYTES ABSOLUTE COUNT (BEAKER) (test 0.94 K/ L 1.18-3.74 kqya=410) MONOCYTES ABSOLUTE COUNT (BEAKER) (test 1.18 K/ L 0.24-0.36 dznz=020) EOSINOPHILS ABSOLUTE COUNT (BEAKER) (test 0.11 K/ L 0.04-0.36 etgn=704) BASOPHILS ABSOLUTE COUNT (BEAKER) (test 0.03 K/ L 0.01-0.08 pndb=383) IMMATURE GRANULOCYTES-RELATIVE PERCENT (BEAKER) 1 % 0-1 (test jsnc=9217) [id number] 05:46:00 Test Item Value Reference Range Comments MAGNESIUM (BEAKER) (test qmvy=539) 1.4 mg/dL 1.6-2.6 BASIC METABOLIC [id number] 05:46:00 Test Item Value Reference Range Comments SODIUM (BEAKER) (test 135 meq/L 136-145 pdwk=607) POTASSIUM (BEAKER) (test 3.8 meq/L 3.5-5.1 nopv=988) CHLORIDE (BEAKER) (test 104 meq/L 98-107 xdqn=363) CO2 (BEAKER) (test 24 meq/L 22-29 czzc=747) BLOOD UREA NITROGEN 29 mg/dL 7-21 (BEAKER) (test esou=242) CREATININE (BEAKER) (test 1.00 mg/dL 0.57-1.25 xsvw=753) GLUCOSE RANDOM (BEAKER) 94 mg/dL 70-105 (test dldn=798) CALCIUM (BEAKER) (test 8.4 mg/dL 8.4-10.2 kcon=264) EGFR (BEAKER) (test 54 mL/min/1.73 sq m ESTIMATED GFR IS NOT ffex=7547) ACCURATE CREATININE CLEARANCE IN PREDICTING GLOMERULAR FILTRATION RATE. ESTIMATED GFR IS NOT APPLICABLE FOR DIALYSIS PATIENTS. POCT-GLUCOSE [id number] 21:07:00 Test Item Value Reference Range Comments POC-GLUCOSE METER (BEAKER) 170 mg/dL 70-110 TESTED AT [facility] [address] [place] [address] (test iavj=6468) [facility] [address] ANG, NEPHROSTOMY TUBE CHANGE, [id number] 20:09:00FINAL REPORT Right nephrostomy catheter exchange. History: [...] the patient's medical record by the nurse. Product Marketing Coordinator: Gerald Baeza MD. Press Clippings Cutter And Paster: MD Ulysses ( Fellow) Approach: Indwelling right [...] 2% lidocaine was used for local anesthesia. Logging Rafter Laborer images were obtained demonstrating right nephrostomy catheter retracted to a renal calyx. The indwelling tube was cut and a 0.035 wire was advanced into the right renal pelvis. The existing catheter was removed over wire and a new 8.5 Kenyan percutaneous nephrostomy catheter was advanced over wire with pigtail formed within the renal pelvis. There was immediate return of urine. Contrast injection confirmed position. The catheter was fixed tothe skin with silk suture. A sterile dressing was applied. The patient tolerated procedure well without immediate complication. IMPRESSION: Successful right percutaneous nephrostomy catheter exchange. Signed: Gerald Baezaeport Verified Date/Time: 08/06/2017 20:09:03 Reading Location: [place] [id number] Angio Body Reading Room Electronically signed by: GERALD BAEZA MD on 2016 08:09 PMURINALYSIS W/ [id number] 19:55:00 Test Item Value Reference Range Comments COLOR (BEAKER) (test elhh=868) Brittaney CLARITY (BEAKER) (test pmwi=781) Cloudy SPECIFIC GRAVITY UA (BEAKER) (test 1.016 1.001-1.035 oici=008) PH UA (BEAKER) (test sqyd=734) 8.0 5.0-8.0 PROTEIN UA (BEAKER) (test nvge=362) 300 mg/dL Negative GLUCOSE UA (BEAKER) (test pgyu=099) Negative Negative KETONES UA (BEAKER) (test pmah=080) Negative Negative BILIRUBIN UA (BEAKER) (test ncdx=017) Negative Negative BLOOD UA (BEAKER) (test qxvn=142) Large Negative NITRITE UA (BEAKER) (test mwdf=805) Negative Negative LEUKOCYTE ESTERASE UA (BEAKER) (test Large Negative hkzu=671) UROBILINOGEN UA (BEAKER) (test gobi=982) 0.2 mg/dL 0.2-1.0 RBC UA (BEAKER) (test ksjr=324) > /HPF WBC UA (BEAKER) (test ferv=993) > /HPF MUCUS (BEAKER) (test oxdg=4803) Rare SOURCE(BEAKER) (test vdzq=8396) Urine, Nephrostomy POCT-GLUCOSE [id number] 12:58:00 Test Item Value Reference Range Comments POC-GLUCOSE METER (BEAKER) 131 mg/dL 70-110 TESTED AT [place] [id number] [facility] (test tssz=4244) [facility] [address] HEMOGLOBIN [id number] 09:30:00 Test Item Value Reference Range Comments HEMOGLOBIN A1C (BEAKER) (test scer=725) 5.7 % 4.3-6.1 POCT-GLUCOSE [id number] 07:08:00 Test Item Value Reference Range Comments POC-GLUCOSE METER (BEAKER) 137 mg/dL 70-110 TESTED AT [facility] [address] [place] [address] (test rtsb=6830) [facility] [address] [id number] 04:00:00 Test Item Value Reference Range Comments PROTIME (BEAKER) (test zscx=080) 13.4 seconds 11.7-14.7 INR (BEAKER) (test anix=263) 1.0 <=5.9 PARTIAL THROMBOPLASTIN TIME (BEAKER) (test 30.1 seconds 22.5-36.0 fsfe=051) RECOMMENDED COUMADIN/WARFARIN INR THERAPY RANGESSTANDARD DOSE: 2.0 - 3.0 Includes: PROPHYLAXIS forvenous thrombosis, systemic embolization; TREATMENT for venous thrombosis and/or pulmonary embolus.HIGH RISK: Target INR is 2.5-3.5 for patients with mechanical heart valves.U/S, RENAL, [id number] 03:58: 00Abdomen limited area? Add comment if [...] Verified Date/Time: 08/06/2017 03:58: 39 Reading Location: [facility] B1 C013X Ortho Consult Reading Room URINALYSIS W / [id number] 01:01:00 Test Item Value Reference Range Comments COLOR (BEAKER) (test cgzc=463) Light Yellow CLARITY (BEAKER) (test fbap=725) Hazy SPECIFIC GRAVITY UA (BEAKER) (test mocv=001) 1.011 1.001-1.035 PH UA (BEAKER) (test uutx=753) 7.0 5.0-8.0 PROTEIN UA (BEAKER) (test laoz=707) 200 mg/dL Negative GLUCOSE UA (BEAKER) (test taqn=958) Negative Negative KETONES UA (BEAKER) (test ycsa=780) Negative Negative BILIRUBIN UA (BEAKER) (test pwkv=853) Negative Negative BLOOD UA (BEAKER) (test uzdk=586) Moderate Negative NITRITE UA (BEAKER) (test eoqv=968) Negative Negative LEUKOCYTE ESTERASE UA (BEAKER) (test yqod=759) Moderate Negative UROBILINOGEN UA (BEAKER) (test kjzo=743) 0.2 mg/dL 0.2-1.0 RBC UA (BEAKER) (test qfyz=274) 22 /HPF WBC UA (BEAKER) (test gbnd=360) 26 /HPF BACTERIA (BEAKER) (test hvrv=411) Occasional MUCUS (BEAKER) (test lktv=2017) Rare SQUAMOUS EPITHELIAL (BEAKER) (test xrgl=669) < /HPF HYALINE CASTS (BEAKER) (test vcjt=798) 6 /LPF TRIPLE PHOSPHATE CRYSTALS (BEAKER) (test Rare aplr=5011) AMORPHOUS CRYSTALS (BEAKER) (test aohd=5005) Rare SOURCE(BEAKER) (test lghe=4287) Urine, Voided [id number] 23:21:00 Test Item Value Reference Range Comments LIPASE (BEAKER) (test lnzq=842) 31 U/L 8-78 [id number] 23:21:00 Test Item Value Reference Range Comments AMYLASE (BEAKER) (test xdmg=148) 71 U/L 25-125 BASIC METABOLIC [id number] 23:21:00 Test Item Value Reference Range Comments SODIUM (BEAKER) (test 139 meq/L 136-145 muvx=830) POTASSIUM (BEAKER) (test 3.8 meq/L 3.5-5.1 eagd=800) CHLORIDE (BEAKER) (test 104 meq/L 98-107 gwei=406) CO2 (BEAKER) (test 22 meq/L 22-29 zemu=333) BLOOD UREA NITROGEN 29 mg/dL 7-21 (BEAKER) (test pvfl=287) CREATININE (BEAKER) (test 1.01 mg/dL 0.57-1.25 sgjk=747) GLUCOSE RANDOM (BEAKER) 104 mg/dL 70-105 (test uhkf=522) CALCIUM (BEAKER) (test 9.2 mg/dL 8.4-10.2 hzrq=160) EGFR (BEAKER) (test 54 mL/min/1.73 sq m ESTIMATED GFR IS NOT zqwk=4727) ACCURATE CREATININE CLEARANCE IN PREDICTING GLOMERULAR FILTRATION RATE. ESTIMATED GFR IS NOT APPLICABLE FOR DIALYSIS PATIENTS. HEPATIC FUNCTION [id number] 23:21:00 Test Item Value Reference Range Comments TOTAL PROTEIN (BEAKER) (test elin=993) 7.3 gm/dL 6.0-8.3 ALBUMIN (BEAKER) (test arna=2247) 3.5 g/dL 3.5-5.0 BILIRUBIN TOTAL (BEAKER) (test bpak=002) < mg/dL 0.2-1.2 BILIRUBIN DIRECT (BEAKER) (test bety=071) 0.1 mg/dL 0.1-0.5 ALKALINE PHOSPHATASE (BEAKER) (test sqbt=223) 92 U/L 40-150 AST (SGOT) (BEAKER) (test nxlz=103) 17 U/L 5-34 ALT (SGPT) (BEAKER) (test ofed=160) 12 U/L 6-55 CBC W/PLT COUNT & AUTO [id number] 23:15:00 Test Item Value Reference Range Comments WHITE BLOOD CELL COUNT (BEAKER) (test zaiy=086) 13.0 K/ L 3.5-10.5 RED BLOOD CELL COUNT (BEAKER) (test xdbn=926) 3.64 M/ L 3.93-5.22 HEMOGLOBIN (BEAKER) (test gkji=494) 11.6 GM/DL 11.2-15.7 HEMATOCRIT (BEAKER) (test qltv=274) 36.0 % 34.1-44.9 MEAN CORPUSCULAR VOLUME (BEAKER) (test pfdk=583) 98.9 fL 79.4-94.8 MEAN CORPUSCULAR HEMOGLOBIN (BEAKER) (test 31.9 pg 25.6-32.2 yziw=795) MEAN CORPUSCULAR HEMOGLOBIN CONC (BEAKER) (test 32.2 GM/DL 32.2-35.5 xvhx=316) RED CELL DISTRIBUTION WIDTH (BEAKER) (test 13.7 % 11.7-14.4 hnjp=438) PLATELET COUNT (BEAKER) (test piqt=255) 284 K/CU MM 150-450 MEAN PLATELET VOLUME (BEAKER) (test muwz=263) 9.7 fL 9.4-12.3 NUCLEATED RED BLOOD CELLS (BEAKER) (test 0 /100 WBC 0-0 dbtf=303) NEUTROPHILS RELATIVE PERCENT (BEAKER) (test 80 % bpec=880) LYMPHOCYTES RELATIVE PERCENT (BEAKER) (test 10 % xmie=765) MONOCYTES RELATIVE PERCENT (BEAKER) (test 7 % mgcz=922) EOSINOPHILS RELATIVE PERCENT (BEAKER) (test 2 % eusi=169) BASOPHILS RELATIVE PERCENT (BEAKER) (test 0 % obut=829) NEUTROPHILS ABSOLUTE COUNT (BEAKER) (test 10.38 K/ L 1.56-6.13 bhnk=170) LYMPHOCYTES ABSOLUTE COUNT (BEAKER) (test 1.27 K/ L 1.18-3.74 ubtj=967) MONOCYTES ABSOLUTE COUNT (BEAKER) (test 0.95 K/ L 0.24-0.36 fidl=898) EOSINOPHILS ABSOLUTE COUNT (BEAKER) (test 0.26 K/ L 0.04-0.36 ipmp=997) BASOPHILS ABSOLUTE COUNT (BEAKER) (test 0.05 K/ L 0.01-0.08 bzzt=598) IMMATURE GRANULOCYTES-RELATIVE PERCENT (BEAKER) 0 % 0-1 (test qyst=3564) HARPREET NEPHROSTOMY TUBE CHANGE, [id number] 11:25:00Reason for exam:->BACK PAINReason for exam:->FINAL REPORT Exchange of right percutaneous nephrostomy tube and left percutaneous nephroureteral stent. History: Back pain. Patient presented to the emergency department with a decreased drainage from the right nephrostomy catheter. Modality: Fluoroscopy Sedation: None Product Marketing Coordinator: Star Georges MD. Press Clippings Cutter And Paster: None. Approach: ] Is approximately catheter and [...] exchanged over guidewire for a new 8.5 Kenyan nephrostomy catheter. After the new catheter was placed contrast was injected which confirmed proper positioning. The catheter isin superior the patient's skin with 2-0 silk and connected to gravity drainage bag. The left nephroureteral stent was then exchanged over guidewire for a new 8.5 Kenyan by 22 cm nephroureteral stent. The distal [...] 07/08/2017 11:25: 07 Reading Location: [place] [id number] Angio Body Reading Room URINALYSIS W/ [id number] 09:16:00 Test Item Value Reference Range Comments COLOR (BEAKER) (test ufjv=733) Yellow CLARITY (BEAKER) (test zkjo=760) Hazy SPECIFIC GRAVITY UA (BEAKER) (test 1.018 1.001-1.035 nbyl=400) PH UA (BEAKER) (test adrd=141) 7.5 5.0-8.0 PROTEIN UA (BEAKER) (test zdfo=242) 300 mg/dL Negative GLUCOSE UA (BEAKER) (test bkuo=907) Negative Negative KETONES UA (BEAKER) (test hfxx=020) Negative Negative BILIRUBIN UA (BEAKER) (test vsiy=389) Negative Negative BLOOD UA (BEAKER) (test vhjb=884) Small Negative NITRITE UA (BEAKER) (test rqlr=142) Negative Negative LEUKOCYTE ESTERASE UA (BEAKER) (test Moderate Negative ztxq=952) UROBILINOGEN UA (BEAKER) (test jldq=303) 0.2 mg/dL 0.2-1.0 RBC UA (BEAKER) (test huom=424) > /HPF WBC UA (BEAKER) (test fyui=899) > /HPF SQUAMOUS EPITHELIAL (BEAKER) (test 1 /HPF cvtk=186) SOURCE(BEAKER) (test rxqe=5407) Urine, Nephrostomy CBC W/PLT COUNT & AUTO [id number] 08:56:00 Test Item Value Reference Range Comments WHITE BLOOD CELL COUNT (BEAKER) (test ytmz=689) 10.2 K/ L 3.5-10.5 RED BLOOD CELL COUNT (BEAKER) (test swny=672) 3.40 M/ L 3.93-5.22 HEMOGLOBIN (BEAKER) (test kvjx=023) 10.9 GM/DL 11.2-15.7 HEMATOCRIT (BEAKER) (test cxoo=191) 33.7 % 34.1-44.9 MEAN CORPUSCULAR VOLUME (BEAKER) (test xyhl=572) 99.1 fL 79.4-94.8 MEAN CORPUSCULAR HEMOGLOBIN (BEAKER) (test 32.1 pg 25.6-32.2 oeyh=653) MEAN CORPUSCULAR HEMOGLOBIN CONC (BEAKER) (test 32.3 GM/DL 32.2-35.5 wtnj=281) RED CELL DISTRIBUTION WIDTH (BEAKER) (test 15.2 % 11.7-14.4 amoq=031) PLATELET COUNT (BEAKER) (test dilg=397) 317 K/CU MM 150-450 MEAN PLATELET VOLUME (BEAKER) (test dwhe=256) 9.8 fL 9.4-12.3 NUCLEATED RED BLOOD CELLS (BEAKER) (test 0 /100 WBC 0-0 nmzp=057) NEUTROPHILS RELATIVE PERCENT (BEAKER) (test 79 % dgmw=799) LYMPHOCYTES RELATIVE PERCENT (BEAKER) (test 10 % iktl=260) MONOCYTES RELATIVE PERCENT (BEAKER) (test 9 % qmul=300) EOSINOPHILS RELATIVE PERCENT (BEAKER) (test 2 % fifl=692) BASOPHILS RELATIVE PERCENT (BEAKER) (test 0 % vvee=625) NEUTROPHILS ABSOLUTE COUNT (BEAKER) (test 8.07 K/ L 1.56-6.13 pfhh=052) LYMPHOCYTES ABSOLUTE COUNT (BEAKER) (test 1.06 K/ L 1.18-3.74 lykp=545) MONOCYTES ABSOLUTE COUNT (BEAKER) (test 0.88 K/ L 0.24-0.36 exhn=768) EOSINOPHILS ABSOLUTE COUNT (BEAKER) (test 0.16 K/ L 0.04-0.36 xlsj=034) BASOPHILS ABSOLUTE COUNT (BEAKER) (test 0.02 K/ L 0.01-0.08 irxi=250) IMMATURE GRANULOCYTES-RELATIVE PERCENT (BEAKER) 1 % 0-1 (test rbkr=8567) BASIC METABOLIC [id number] 08:48:00 Test Item Value Reference Range Comments SODIUM (BEAKER) (test 138 meq/L 136-145 rieq=935) POTASSIUM (BEAKER) (test 4.6 meq/L 3.5-5.1 kjme=997) CHLORIDE (BEAKER) (test 104 meq/L 98-107 lpdf=452) CO2 (BEAKER) (test 23 meq/L 22-29 gypo=868) BLOOD UREA NITROGEN 40 mg/dL 7-21 (BEAKER) (test mrlm=050) CREATININE (BEAKER) (test 1.03 mg/dL 0.57-1.25 toyn=516) GLUCOSE RANDOM (BEAKER) 140 mg/dL 70-105 (test toxi=417) CALCIUM (BEAKER) (test 9.1 mg/dL 8.4-10.2 pfhh=777) EGFR (BEAKER) (test 52 mL/min/1.73 sq m ESTIMATED GFR IS NOT apas=4504) ACCURATE CREATININE CLEARANCE IN PREDICTING GLOMERULAR FILTRATION RATE. ESTIMATED GFR IS NOT APPLICABLE FOR DIALYSIS PATIENTS. URINE [id number] 08:09:00 Test Item Value Reference Range Comments CULTURE (BEAKER) (test STENOTROPHOMONAS >100,000 col/mL heak=6706) MALTOPHILIA Stenotrophomonas maltophilia Amikacin (test code=1) Ampicillin (test code=26) Ampicillin + Sulbactam (test code=6) Aztreonam (test code=32) Cefazolin (test code=9) Cefepime (test code=51) Ceftazidime (test Susceptible 0-8 , code=27) Resistant <0 or >8 Ceftriaxone (test code=52) Ciprofloxacin (test code=7) Doripenem (test ppzt=219) Ertapenem (test code=38) Gentamicin (test code=18) Imipenem (test code=19) Levofloxacin (test Susceptible 0-2 , code=22) Resistant <0 or >2 Meropenem (test code=34) Minocycline (test Susceptible 0-4 , code=35) Resistant <0 or >4 Nitrofurantoin (test code=23) Piperacillin (test code=24) Piperacillin + Tazobactam (test code=29) Tetracycline (test code=2) Ticarcillin + Clavulanic Acid (test code=80) Tigecycline (test sqzj=024) Tobramycin (test code=25) Trimethoprim + Susceptible 0-40 Sulfamethoxazole (test , Resistant <0 or code=47) >40 CULTURE (BEAKER) (test COAGULASE NEGATIVE >100,000 col/mL vahb=5959) STAPHYLOCOCCUS Coagulase negative Staphylococcus Ampicillin (test dhib=018) Ciprofloxacin (test code=72) Clindamycin (test code=10) Daptomycin (test code=59) Erythromycin (test code=4) Gentamicin (test wqpb=199) Gentamicin High Level Synergy (test flgc=990) Levofloxacin (test code=22) Linezolid (test code=40) Moxifloxacin (test code=36) Nitrofurantoin (test code=23) Oxacillin (test code=14) Rifampin (test code=43) Streptomycin High Level Synergy (test xopo=356) Tetracycline (test code=2) Tigecycline (test xcew=9874) Trimethoprim + Sulfamethoxazole (test code=47) Vancomycin (test code=13) URINALYSIS W/ [id number] 10:28:00 Test Item Value Reference Range Comments COLOR (BEAKER) (test asod=204) Yellow CLARITY (BEAKER) (test jphp=883) Clear SPECIFIC GRAVITY UA (BEAKER) (test 1.014 1.001-1.035 gwca=318) PH UA (BEAKER) (test stwm=976) 6.0 5.0-8.0 PROTEIN UA (BEAKER) (test vyuc=103) 50 mg/dL Negative GLUCOSE UA (BEAKER) (test kxha=673) Negative Negative KETONES UA (BEAKER) (test ftgu=962) Negative Negative BILIRUBIN UA (BEAKER) (test qmzh=104) Negative Negative BLOOD UA (BEAKER) (test juwm=548) Trace Negative NITRITE UA (BEAKER) (test zhkw=178) Positive Negative LEUKOCYTE ESTERASE UA (BEAKER) (test Large Negative dbpt=548) UROBILINOGEN UA (BEAKER) (test tnhk=962) 0.2 mg/dL 0.2-1.0 RBC UA (BEAKER) (test ztcs=381) 1 /HPF WBC UA (BEAKER) (test mlbs=413) 15 /HPF BACTERIA (BEAKER) (test wbuf=067) Rare HYALINE CASTS (BEAKER) (test snkn=628) 9 /LPF CRYSTALS, URINE (BEAKER) (test fogx=0413) Rare SOURCE(BEAKER) (test gwsn=0297) Urine, Nephrostomy BASIC METABOLIC [id number] 10:18:00 Test Item Value Reference Range Comments SODIUM (BEAKER) (test 136 meq/L 136-145 cojk=572) POTASSIUM (BEAKER) (test 3.8 meq/L 3.5-5.1 vubw=105) CHLORIDE (BEAKER) (test 100 meq/L 98-107 cutz=260) CO2 (BEAKER) (test 24 meq/L 22-29 vfnc=767) BLOOD UREA NITROGEN 26 mg/dL 7-21 (BEAKER) (test jdei=593) CREATININE (BEAKER) (test 0.89 mg/dL 0.57-1.25 wtoq=406) GLUCOSE RANDOM (BEAKER) 82 mg/dL 70-105 (test cshd=677) CALCIUM (BEAKER) (test 9.3 mg/dL 8.4-10.2 sqiw=420) EGFR (BEAKER) (test 62 mL/min/1.73 sq m ESTIMATED GFR IS NOT uziw=6085) ACCURATE CREATININE CLEARANCE IN PREDICTING GLOMERULAR FILTRATION RATE. ESTIMATED GFR IS NOT APPLICABLE FOR DIALYSIS PATIENTS. CBC W/PLT COUNT & AUTO [id number] 10:12:00 Test Item Value Reference Range Comments WHITE BLOOD CELL COUNT (BEAKER) (test cmoo=055) 9.6 K/ L 4.0-10.0 RED BLOOD CELL COUNT (BEAKER) (test wzjm=037) 3.48 M/ L 4.00-5.00 HEMOGLOBIN (BEAKER) (test vijh=924) 10.4 GM/DL 12.0-15.0 HEMATOCRIT (BEAKER) (test uinr=233) 33.0 % 36.0-45.0 MEAN CORPUSCULAR VOLUME (BEAKER) (test xyhb=674) 94.8 fL 82.0-99.0 MEAN CORPUSCULAR HEMOGLOBIN (BEAKER) (test 29.9 pg 27.0-33.0 vrod=866) MEAN CORPUSCULAR HEMOGLOBIN CONC (BEAKER) (test 31.5 GM/DL 32.0-36.0 oklf=760) RED CELL DISTRIBUTION WIDTH (BEAKER) (test 15.7 % 10.3-14.2 jxoz=069) PLATELET COUNT (BEAKER) (test gzcd=893) 548 K/CU MM 150-430 MEAN PLATELET VOLUME (BEAKER) (test gfmf=692) 6.2 fL 6.5-10.5 NUCLEATED RED BLOOD CELLS (BEAKER) (test 0 /100 WBC 0-0 eije=769) NEUTROPHILS RELATIVE PERCENT (BEAKER) (test 70 % dtkm=628) LYMPHOCYTES RELATIVE PERCENT (BEAKER) (test 17 % bich=802) MONOCYTES RELATIVE PERCENT (BEAKER) (test 12 % cyne=124) EOSINOPHILS RELATIVE PERCENT (BEAKER) (test 2 % ddlr=423) BASOPHILS RELATIVE PERCENT (BEAKER) (test 1 % tkhz=944) NEUTROPHILS ABSOLUTE COUNT (BEAKER) (test 6.65 K/ L 1.80-8.00 qnci=255) LYMPHOCYTES ABSOLUTE COUNT (BEAKER) (test 1.58 K/ L 1.48-4.50 fxaf=838) MONOCYTES ABSOLUTE COUNT (BEAKER) (test 1.11 K/ L 0.00-1.30 uxeu=471) EOSINOPHILS ABSOLUTE COUNT (BEAKER) (test 0.17 K/ L 0.00-0.50 ouxt=263) BASOPHILS ABSOLUTE COUNT (BEAKER) (test 0.06 K/ L 0.00-0.20 yutb=049) 0.00PT/[id number] 10:12:00 Test Item Value Reference Range Comments PROTIME (BEAKER) (test rbvl=609) 13.4 seconds 11.7-14.7 INR (BEAKER) (test sfux=572) 1.0 <=5.9 PARTIAL THROMBOPLASTIN TIME (BEAKER) (test 36.3 seconds 22.5-36.0 ybgw=034) RECOMMENDED COUMADIN/WARFARIN INR THERAPY RANGESSTANDARD DOSE: 2.0 - 3.0 Includes: PROPHYLAXIS forvenous thrombosis, systemic embolization; TREATMENT for venous thrombosis and/or pulmonary embolus.HIGH RISK: Target INR is 2.5-3.5 for patients with mechanical heart valves.POCT-GLUCOSE [id number] 13:22:00 Test Item Value Reference Range Comments POC-GLUCOSE METER (BEAKER) 136 mg/dL 70-110 TESTED AT [address] (test rxnv=8468) [facility] [id number] POCT-GLUCOSE [id number] 07:56:00 Test Item Value Reference Range Comments POC-GLUCOSE METER (BEAKER) 185 mg/dL 70-110 TESTED AT [address] (test vkwg=7849) [place] [id number] HEMOGLOBIN AND [id number] 06:36:00 Test Item Value Reference Range Comments HEMOGLOBIN (BEAKER) (test xivu=350) 9.1 GM/DL 12.0-15.0 HEMATOCRIT (BEAKER) (test mxja=521) 29.3 % 36.0-45.0 BASIC METABOLIC [id number] 06:21:00 Test Item Value Reference Range Comments SODIUM (BEAKER) (test 142 meq/L 136-145 vcca=226) POTASSIUM (BEAKER) (test 3.8 meq/L 3.5-5.1 ypwx=387) CHLORIDE (BEAKER) (test 108 meq/L 98-107 apko=136) CO2 (BEAKER) (test 22 meq/L 22-29 epll=683) BLOOD UREA NITROGEN 30 mg/dL 7-21 (BEAKER) (test pqbl=343) CREATININE (BEAKER) (test 1.44 mg/dL 0.57-1.25 avcu=113) GLUCOSE RANDOM (BEAKER) 133 mg/dL 70-105 (test kton=608) CALCIUM (BEAKER) (test 8.3 mg/dL 8.4-10.2 faiv=224) EGFR (BEAKER) (test 36 mL/min/1.73 sq m ESTIMATED GFR IS NOT tjye=1611) ACCURATE CREATININE CLEARANCE IN PREDICTING GLOMERULAR FILTRATION RATE. ESTIMATED GFR IS NOT APPLICABLE FOR DIALYSIS PATIENTS. [id number] 06:05:00 Test Item Value Reference Range Comments PROTIME (BEAKER) (test hfhe=545) 15.8 seconds 11.7-14.7 INR (BEAKER) (test zutg=856) 1.3 <=5.9 PARTIAL THROMBOPLASTIN TIME (BEAKER) (test 39.7 seconds 22.5-36.0 auww=397) RECOMMENDED COUMADIN/WARFARIN INR THERAPY RANGESSTANDARD DOSE: 2.0 - 3.0 Includes: PROPHYLAXIS forvenous thrombosis, systemic embolization; TREATMENT for venous thrombosis and/or pulmonary embolus.HIGH RISK: Target INR is 2.5-3.5 for patients with mechanical heart valves.POCT-GLUCOSE [id number] 20:59:00 Test Item Value Reference Range Comments POC-GLUCOSE METER (BEAKER) 139 mg/dL 70-110 TESTED AT [facility] [address] (test knlx=4668) [facility] [address] POCT-GLUCOSE [id number] 17:25:00 Test Item Value Reference Range Comments POC-GLUCOSE METER (BEAKER) 213 mg/dL 70-110 TESTED AT [facility] [address] (test tjkn=9975) [facility] [address] BASIC METABOLIC [id number] 15:09:00 Test Item Value Reference Range Comments SODIUM (BEAKER) (test 140 meq/L 136-145 kmtz=033) POTASSIUM (BEAKER) (test 3.8 meq/L 3.5-5.1 joos=147) CHLORIDE (BEAKER) (test 106 meq/L 98-107 dquk=159) CO2 (BEAKER) (test 24 meq/L 22-29 igsq=479) BLOOD UREA NITROGEN 35 mg/dL 7-21 (BEAKER) (test ejjl=332) CREATININE (BEAKER) (test 1.64 mg/dL 0.57-1.25 jpux=611) GLUCOSE RANDOM (BEAKER) 181 mg/dL 70-105 (test qmcc=879) CALCIUM (BEAKER) (test 8.2 mg/dL 8.4-10.2 ukmg=528) EGFR (BEAKER) (test 31 mL/min/1.73 sq m ESTIMATED GFR IS NOT joyo=5329) ACCURATE CREATININE CLEARANCE IN PREDICTING GLOMERULAR FILTRATION RATE. ESTIMATED GFR IS NOT APPLICABLE FOR DIALYSIS PATIENTS. PROTHROMBIN [id number] 14:53:00 Test Item Value Reference Range Comments PROTIME (BEAKER) (test ltqv=345) 15.6 seconds 11.7-14.7 INR (BEAKER) (test xcdt=771) 1.3 <=5.9 RECOMMENDED COUMADIN/WARFARIN INR THERAPY RANGESSTANDARD DOSE: 2.0 - 3.0 Includes: PROPHYLAXIS forvenous thrombosis, systemic embolization; TREATMENT for venous thrombosis and/or pulmonary embolus.HIGH RISK: Target INR is 2.5-3.5 for patients with mechanical heart valves.HEMOGLOBIN AND [id number] 14 :50:00 Test Item Value Reference Range Comments HEMOGLOBIN (BEAKER) (test xuxw=020) 10.4 GM/DL 12.0-15.0 HEMATOCRIT (BEAKER) (test limc=662) 32.6 % 36.0-45.0 CBC W/PLT COUNT & AUTO [id number] 12:10:00 Test Item Value Reference Range Comments WHITE BLOOD CELL COUNT (BEAKER) (test fagh=629) 11.7 K/ L 4.0-10.0 RED BLOOD CELL COUNT (BEAKER) (test akvc=706) 3.31 M/ L 4.00-5.00 HEMOGLOBIN (BEAKER) (test haji=489) 9.9 GM/DL 12.0-15.0 HEMATOCRIT (BEAKER) (test doip=806) 31.3 % 36.0-45.0 MEAN CORPUSCULAR VOLUME (BEAKER) (test xdjw=749) 94.5 fL 82.0-99.0 MEAN CORPUSCULAR HEMOGLOBIN (BEAKER) (test 30.0 pg 27.0-33.0 hskh=196) MEAN CORPUSCULAR HEMOGLOBIN CONC (BEAKER) (test 31.7 GM/DL 32.0-36.0 ilgz=199) RED CELL DISTRIBUTION WIDTH (BEAKER) (test 14.6 % 10.3-14.2 jcyo=416) PLATELET COUNT (BEAKER) (test ndel=892) 393 K/CU MM 150-430 MEAN PLATELET VOLUME (BEAKER) (test wkjf=583) 7.4 fL 6.5-10.5 NUCLEATED RED BLOOD CELLS (BEAKER) (test 0 /100 WBC 0-0 yltz=306) NEUTROPHILS RELATIVE PERCENT (BEAKER) (test 76 % rgxn=448) LYMPHOCYTES RELATIVE PERCENT (BEAKER) (test 11 % ixbq=899) MONOCYTES RELATIVE PERCENT (BEAKER) (test 12 % vfky=876) EOSINOPHILS RELATIVE PERCENT (BEAKER) (test 2 % ubtm=702) BASOPHILS RELATIVE PERCENT (BEAKER) (test 0 % aioq=282) NEUTROPHILS ABSOLUTE COUNT (BEAKER) (test 8.83 K/ L 1.80-8.00 obaq=130) LYMPHOCYTES ABSOLUTE COUNT (BEAKER) (test 1.23 K/ L 1.48-4.50 owvv=544) MONOCYTES ABSOLUTE COUNT (BEAKER) (test 1.42 K/ L 0.00-1.30 yaxp=648) EOSINOPHILS ABSOLUTE COUNT (BEAKER) (test 0.19 K/ L 0.00-0.50 fnri=341) BASOPHILS ABSOLUTE COUNT (BEAKER) (test 0.00 K/ L 0.00-0.20 sptx=974) [id number] 11:59:00 Test Item Value Reference Range Comments SODIUM (BEAKER) (test nzfb=875) 141 meq/L 136-145 POTASSIUM (BEAKER) (test zwhu=086) 3.7 meq/L 3.5-5.1 CHLORIDE (BEAKER) (test qniq=782) 107 meq/L 98-107 CO2 (BEAKER) (test uvsb=347) 24 meq/L 22-29 BUN AND [id number] 11:53:00 Test Item Value Reference Range Comments BLOOD UREA NITROGEN 38 mg/dL 7-21 (BEAKER) (test fxci=023) CREATININE (BEAKER) (test 1.61 mg/dL 0.57-1.25 jiwz=369) EGFR (BEAKER) (test 31 mL/min/1.73 sq m ESTIMATED GFR IS NOT omcn=2719) ACCURATE CREATININE CLEARANCE IN PREDICTING GLOMERULAR FILTRATION RATE. ESTIMATED GFR IS NOT APPLICABLE FOR DIALYSIS PATIENTS. POCT-GLUCOSE [id number] 10:51:00 Test Item Value Reference Range Comments POC-GLUCOSE METER (BEAKER) 52 mg/dL 70-110 Notified TASHA GRECO/TESTED AT [facility] (test bztv=2862) [id number] [facility] [id number]
--- NOTE | 2019-12-31 14:54 | RAD REPORT ---
EXAM DESCRIPTION: RAD - Hip Right 2 View - 12/31/2019 2:45 pm CLINICAL HISTORY: Dislocation Pain, hip COMPARISON: Hip Right 2 View dated 12/28/2019; Hip Right 2 View dated 12/28/2019 FINDINGS: A dislocated right total hip arthroplasty is noted. No fracture is seen.
[2019-12-31] MEDS ORDERED: ONDANSETRON 4 MG/2 ML VIAL ONE (15:06)
[2019-12-31] MEDS ORDERED: FENTANYL CITR 100 MCG/2 ML ONE (15:06)
[2019-12-31] MEDS ORDERED: propofoL 200 MG/20 ML VIAL IV ONE (15:30)
[2019-12-31] MEDS ORDERED: NA CHLORIDE 0.9% 1,000 ML ONE (15:36)
--- NOTE | 2019-12-31 16:57 | EDPHYS ---
Physician Documentation [facility] Name: Mary Archuleta Age: 79 yrs Sex: Female : 1940 Arrival Date: 12/31/2019 Time: 14:14 Bed 14 Private MD: ED Physician Ej Archuleta HPI: 14:35 This 79 yrs old Female presents to ER via EMS with complaints of Hip Injury. pm1 14:35 The patient or guardian reports possible dislocation. that occurred at home, sustained pm1 from sitting down and bending over to unwrap latonya wraps on her foot. The complaints affect the right hip. Onset: The symptoms/episode began/occurred just prior to arrival. Modifying factors: The symptoms are alleviated by nothing, the symptoms are aggravated by nothing. Associated signs and symptoms: Pertinent negatives: chest pain, fever, headache, shortness of breath. The patient has experienced similar episodes in the past, a few times, and the symptoms today are exactly the same, to previous dislocated prosthetic hip 3 days ago. The patient has been recently seen at the [facility] Emergency Department, last week, for similar complaints right hip reduced. Historical: - Allergies: 14:33 Lisinopril; ca1 - Home Meds: 14:33 Eliquis Oral [Active]; fluoxetine 10 mg Oral cap 1 caps once daily [Active]; ca1 Hydrocodone-Acetaminophen Oral [Active]; metoprolol succinate Oral [Active]; omeprazole 40 mg Oral cpDR 1 cap once daily [Active]; Potassium Chloride Oral [Active]; pravastatin 20 mg Oral tab 1 tab once daily [Active]; torsemide Oral [Active]; - PMHx: 14:33 Atrial Fib; BREAST CA; cervical cancer; Depression; Diabetes - NIDDM; Hyperlipidemia; ca1 Hypertension; Hypothyroidism; lymphedema; peptic ulcers; - Immunization history:: Adult Immunizations up to date. - Social history:: Smoking status: Patient denies any tobacco usage or history of. ROS: 14:35 Constitutional: Negative for fever, chills, and weight loss, Cardiovascular: Negative pm1 for chest pain, palpitations, and edema, Respiratory: Negative for shortness of breath, cough, wheezing, and pleuritic chest pain, Back: Negative for injury and pain. 14:35 Skin: Negative for injury, rash, and discoloration. 14:35 MS/extremity: Positive for pain, of the right hip. 14:35 Neuro: Negative for numbness, tingling. 14:35 All other systems are negative. Exam: 14:35 Constitutional: This is a well developed, well nourished patient who is awake, alert, pm1 and in no acute distress. Head/Face: Normocephalic, atraumatic. Neck: Trachea midline, no thyromegaly or masses palpated, and no cervical lymphadenopathy. Supple, full range of motion without nuchal rigidity, or vertebral point tenderness. No Meningismus. Chest/axilla: Normal chest wall appearance and motion. Nontender with no deformity. No lesions are appreciated. Cardiovascular: Regular rate and rhythm with a normal S1 and S2. No gallops, murmurs, or rubs. Normal PMI, no JVD. No pulse deficits. Respiratory: Lungs have equal breath sounds bilaterally, clear to auscultation and percussion. No rales, rhonchi or wheezes noted. No increased work of breathing, no retractions or nasal flaring. Back: No spinal tenderness. No costovertebral tenderness. Full range of motion. Skin: Warm, dry with normal turgor. Normal color with no rashes, no lesions, and no evidence of cellulitis. 14:35 Musculoskeletal/extremity: Extremities: grossly normal except: noted in the right hip: tenderness, Circulation is intact in all extremities. Pulses: noted to be 2+ in the right dorsalis pedis artery, the right foot Sensation intact. Vital Signs: 14:15 BP 132 / 61; Pulse 69; Resp 17 S; Temp 97.1; Pulse Ox 98% on R/A; Weight 60.78 kg (R); ca1 Height 5 ft. 1 in. (154.94 cm); Pain 8/10; 15:18 BP 124 / 74; Pulse 84; Resp 16 S; Pulse Ox 98% on R/A; ca1 16:00 BP 131 / 77; Pulse 78; Resp 19 S; Pulse Ox 100% on 5 lpm NC; ca1 16:30 BP 129 / 65; Pulse 81; Resp 15 S; Pulse Ox 98% on 2 lpm NC; ca1 17:00 BP 128 / 80; Pulse 80; Resp 15; Pulse Ox 100% on R/A; ca1 14:15 Body Mass Index 25.32 (60.78 kg, 154.94 cm) ca1 15:18 See Conscious Sedation Flow Sheet for VS monitoring ca1 Procedures: 17:15 Reduction: of the right hip, using traction, manipulation, Patient tolerated well. Post pm1 reduction film - reveals normal alignment. Moderate sedation: Pre-procedure assessment: the patient has been NPO 4 hour(s) prior to arrival, Airway assessment: able to hyperextend neck, able to maintain airway, Monitoring during procedure: threat monitoring analyst, continuous pulse oximetry, nurse at bedside at all times, Medications employed: propofol, Post-procedure assessment: the patient is not sedated, Respiratory status: even and unlabored, a reversal agent was not used. MDM: 14:29 Patient medically screened. danish 16:55 Data reviewed: vital signs. Data interpreted: Pulse oximetry: on room air is 98 %. pm1 Interpretation: normal. Counseling: I had a detailed discussion with the patient and/or guardian regarding: the historical points, exam findings, and any diagnostic results supporting the discharge/admit diagnosis, radiology results, the need for outpatient follow up, for definitive care, a orthopedic surgeon, to return to the emergency department if symptoms worsen or persist or if there are any questions or concerns that arise at home. 14:22 Order name: Hip Right 2 View XRAY; Complete Time: 14:56 pm1 16:39 Order name: Hip Joint Unilat One View EDMS 14:22 Order name: IV Saline Lock; Complete Time: 14:52 pm1 15:12 Order name: Conscious Sedation; Complete Time: 15:51 pm1 Administered Medications: 15:00 Drug: Zofran (Ondansetron) 4 mg Route: IVP; Site: right antecubital; ca1 15:30 Follow up: Response: No adverse reaction; Nausea is decreased ca1 15:02 Drug: fentaNYL (PF) 50 mcg Route: IVP; Site: right antecubital; ca1 15:25 Follow up: Response: No adverse reaction; Pain is decreased; RASS: Alert and Calm (0) ca1 15:33 Drug: Propofol 0.5 mg/kg {Note: BY PA. William} Route: IVP; Site: right antecubital; ca1 16:30 Follow up: Response: No adverse reaction; Pain is decreased; RASS: Alert and Calm (0) ca1 17:07 Drug: [place] 10 mg-325 mg 1 tabs {Note: RASS - 0.} Route: PO; ca1 17:22 Follow up: Response: No adverse reaction; Medication administered at discharge.; RASS: ca1 Alert and Calm (0) Disposition: 12/31/19 16:57 Discharged to Home. Impression: Recurrent dislocation, right hip - prosthetic hip. - Condition is Stable. - Discharge Instructions: Hip Dislocation. - Medication Reconciliation Form, Thank You Letter, Antibiotic Education, Prescription Opioid Use form. - Follow up: Emergency Department; When: As needed; Reason: Worsening of condition. Follow up: Private Physician; When: 2 - 3 days; Reason: Recheck today's complaints, Continuance of care, Re-evaluation by your physician. - Problem is new. - Symptoms are resolved. Addendum: 01/01/2020 18:02 Co-signature as Attending Physician, Ej Archuleta MD I agree with the assessment and c vera plan of care. Signatures: Dispatcher [employer] [facility] Ej Archuleta MD MD cha Marinas, Patrick, DIRECT MAIL CLERK DIRECT MAIL CLERK pm1 Daniele, Izabella RN RN ca1 Corrections: (The following items were deleted from the chart) 16:39 16:25 Hip Right 2 View+RAD.RAD.BRZ ordered. [facility] 16:57 16:57 12/31/2019 16:57 Discharged to Home. Impression: Recurrent dislocation, right hip pm1 - prosthetic hip. Condition is Stable. Forms are Medication Reconciliation Form, Thank You Letter, Antibiotic Education, Prescription Opioid Use. Follow up: Emergency Department; When: As needed; Reason: Worsening of condition. Follow up: Private Physician; When: 2 - 3 days; Reason: Recheck today's complaints, Continuance of care, Re-evaluation by your physician. Problem is new. Symptoms have improved. pm1 17:25 16:57 12/31/2019 16:57 Discharged to Home. Impression: Recurrent dislocation, right hip ca1 - prosthetic hip. Condition is Stable. Forms are Medication Reconciliation Form, Thank You Letter, Antibiotic Education, Prescription Opioid Use. Follow up: Emergency Department; When: As needed; Reason: Worsening of condition. Follow up: Private Physician; When: 2 - 3 days; Reason: Recheck today's complaints, Continuance of care, Re-evaluation by your physician. Problem is new. Symptoms are resolved. pm1
--- NOTE | 2019-12-31 16:57 | ER ---
Nurse's Notes [facility] Name: Mary Archuleta Age: 79 yrs Sex: Female : 1940 Arrival Date: 12/31/2019 Time: 14:14 Bed 14 Private MD: Diagnosis: Recurrent dislocation, right hip-prosthetic hip Presentation: 14:15 Chief complaint: Patient states: Was sitting, bent over and heard a pop on her R hip. ca1 Previous history of R hip dislocation without fall. Coronavirus screen: The patient has NOT traveled to [place] in the past 14 days. The patient has NOT had contact with known and/or suspected case of Coronavirus. Ebola Screen: Patient negative for fever greater than or equal to 101.5 degrees Fahrenheit, and additional compatible Ebola Virus Disease symptoms Patient denies exposure to infectious person. Patient denies travel to an Ebola-affected area in the 21 days before illness onset. No symptoms or risks identified at this time. Initial Sepsis Screen: Does the patient meet any 2 criteria? No. Patient's initial sepsis screen is negative. Does the patient have a suspected source of infection? No. Patient's initial sepsis screen is negative. Risk Assessment: Do you want to hurt yourself or someone else? Patient reports no desire to harm self or others. 14:15 Method Of Arrival: EMS: [facility] ca1 14:15 Acuity: SILVERIO 3 ca1 14:16 Onset of symptoms was December 31, 2019. ca1 Historical: - Allergies: 14:33 Lisinopril; ca1 - Home Meds: 14:33 Eliquis Oral [Active]; fluoxetine 10 mg Oral cap 1 caps once daily [Active]; ca1 Hydrocodone-Acetaminophen Oral [Active]; metoprolol succinate Oral [Active]; omeprazole 40 mg Oral cpDR 1 cap once daily [Active]; Potassium Chloride Oral [Active]; pravastatin 20 mg Oral tab 1 tab once daily [Active]; torsemide Oral [Active]; - PMHx: 14:33 Atrial Fib; BREAST CA; cervical cancer; Depression; Diabetes - NIDDM; Hyperlipidemia; ca1 Hypertension; Hypothyroidism; lymphedema; peptic ulcers; - Immunization history:: Adult Immunizations up to date. - Social history:: Smoking status: Patient denies any tobacco usage or history of. Screenin:47 Abuse screen: Denies threats or abuse. Denies injuries from another. Nutritional ca1 screening: No deficits noted. Tuberculosis screening: No symptoms or risk factors identified. Fall Risk Secondary diagnosis (15 points) impaired mobility, IV access (20 points). Ambulatory Aid- Crutches/Cane/Walker (15 pts). Total Potter Fall Scale indicates Low Risk Score (25-44 pts). Fall prevention measures have been instituted. Side Rails Up X 2 Family Present and informed to notify staff if they need to leave bedside As available Patient and Family Educated on Fall Prevention Program and strategies. Assessment: 14:47 General: Appears in no apparent distress. comfortable, Behavior is calm, cooperative, ca1 appropriate for age. Pain: Complains of pain in right hip. Neuro: Level of Consciousness is awake, alert, obeys commands, Oriented to person, place, time, situation, Appropriate for age. Cardiovascular: Heart tones S1 S2 present Capillary refill < 3 seconds Patient's skin is warm and dry. Respiratory: Airway is patent Respiratory effort is even, unlabored, Respiratory pattern is regular, symmetrical. GI: Abdomen is flat, non-distended, Bowel sounds present X 4 quads. Abd is soft and non tender X 4 quads. : No signs and/or symptoms were reported regarding the genitourinary system. EENT: No signs and/or symptoms were reported regarding the EENT system. Derm: Skin is intact, is healthy with good turgor, Skin is pink, warm \T\ dry. Musculoskeletal: Circulation, motion, and sensation intact. Capillary refill < 3 seconds, Range of motion: limited in right hip Swelling present in right leg. 15:18 Reassessment: Patient appears in no apparent distress at this time. Patient and/or ca1 family updated on plan of care and expected duration. Pain level reassessed. Patient is alert, oriented x 3, equal unlabored respirations, skin warm/dry/pink. 15:30 Reassessment: Conscious sedation done. At bedside for monitoring. ca1 16:30 Reassessment: Patient appears in no apparent distress at this time. Patient and/or ca1 family updated on plan of care and expected duration. Pain level reassessed. Patient is alert, oriented x 3, equal unlabored respirations, skin warm/dry/pink. 17:23 Reassessment: Patient appears in no apparent distress at this time. Patient is alert, ca1 oriented x 3, equal unlabored respirations, skin warm/dry/pink. Vital Signs: 14:15 BP 132 / 61; Pulse 69; Resp 17 S; Temp 97.1; Pulse Ox 98% on R/A; Weight 60.78 kg (R); ca1 Height 5 ft. 1 in. (154.94 cm); Pain 8/10; 15:18 BP 124 / 74; Pulse 84; Resp 16 S; Pulse Ox 98% on R/A; ca1 16:00 BP 131 / 77; Pulse 78; Resp 19 S; Pulse Ox 100% on 5 lpm NC; ca1 16:30 BP 129 / 65; Pulse 81; Resp 15 S; Pulse Ox 98% on 2 lpm NC; ca1 17:00 BP 128 / 80; Pulse 80; Resp 15; Pulse Ox 100% on R/A; ca1 14:15 Body Mass Index 25.32 (60.78 kg, 154.94 cm) ca1 15:18 See Conscious Sedation Flow Sheet for VS monitoring ca1 ED Course: 14:14 Patient arrived in ED. ca1 14:21 Phoenix Rankin NP is PHCP. pm1 14:21 Ej Archuleta MD is Attending Physician. pm1 14:26 Triage completed. ca1 14:33 Arm band placed on right wrist. ca1 14:46 Izabella Sanabria, TASHA is Primary Nurse. ca1 14:47 Patient has correct armband on for positive identification. Bed in low position. Call ca1 light in reach. Side rails up X2. Pulse ox on. NIBP on. Warm blanket given. 14:49 Hip Right 2 View XRAY In Process Unspecified. EDMS 14:51 Inserted saline lock: 22 gauge in right antecubital area, using aseptic technique. jb1 15:18 Consent for conscious sedation explained by physician, signed by patient. ca1 15:30 Assist provider with reduction of right pathologic or non traumatic hip using ca1 manipulation, Set up for procedure. Performed by William MILLS Patient tolerated well. under conscious sedation. 16:44 Hip Joint Unilat One View In Process Unspecified. EDMS 17:24 IV discontinued, intact, bleeding controlled, No redness/swelling at site. Pressure ca1 dressing applied. Administered Medications: 15:00 Drug: Zofran (Ondansetron) 4 mg Route: IVP; Site: right antecubital; ca1 15:30 Follow up: Response: No adverse reaction; Nausea is decreased ca1 15:02 Drug: fentaNYL (PF) 50 mcg Route: IVP; Site: right antecubital; ca1 15:25 Follow up: Response: No adverse reaction; Pain is decreased; RASS: Alert and Calm (0) ca1 15:33 Drug: Propofol 0.5 mg/kg {Note: BY PA. William} Route: IVP; Site: right antecubital; ca1 16:30 Follow up: Response: No adverse reaction; Pain is decreased; RASS: Alert and Calm (0) ca1 17:07 Drug: [place] 10 mg-325 mg 1 tabs {Note: RASS - 0.} Route: PO; ca1 17:22 Follow up: Response: No adverse reaction; Medication administered at discharge.; RASS: ca1 Alert and Calm (0) Outcome: 16:57 Discharge ordered by MD. pm1 17:24 Discharged to home via wheelchair, with friend. ca1 17:24 Condition: stable 17:24 Discharge instructions given to patient, Instructed on discharge instructions, follow up and referral plans. Demonstrated understanding of instructions, follow-up care. 17:25 Patient left the ED. ca1 Signatures: Dispatcher [employer] EDMS Jogn Chavira jb1 Phoenix Rankin, [employer] GRADUATE STUDENT pm1 Izabella Sanabria RN RN ca1 Corrections: (The following items were deleted from the chart) 15:19 14:15 BP 132 / 61; Pulse 69bpm; Resp 17bpm; Spontaneous; Pulse Ox 98% RA; ca1 ca1
[2019-12-31] MEDS ORDERED: HYDROCODONE/APAP 10/325 TAB ONE (17:13)
[2019-12-31 17:31] VITALS: TEMP 97.1
--- NOTE | 2019-12-31 17:33 | RAD REPORT ---
EXAM DESCRIPTION: RAD - Hip Joint Unilat One View - 12/31/2019 4:44 pm CLINICAL HISTORY: POST REDUCTION ONE VIEW ONLY PER PROVIDER Pain, swelling COMPARISON: No comparisons FINDINGS: Previously noted dislocated right total hip arthroplasty has been reduced. No fracture casey ntified.
[2019-12-31 17:37] VITALS: BP 128/80; O2SAT 100
== END 2019-12-31 17:25 | disposition home or self-care (01) ==
LOC: ER 14:09
PROC: 0SW9XJZ Revision of Synthetic Substitute in Right Hip Joint, External Approach (ICD-10-PCS; principal; 2019-12-31)
DX: M24.451 Recurrent dislocation, right hip (principal); Z96.641 Presence of right artificial hip joint; Z88.8 Allergy status to other drugs, medicaments and biological substances; Z85.3 Personal history of malignant neoplasm of breast; Z85.41 Personal history of malignant neoplasm of cervix uteri
CPT/HCPCS: 73500; 73502; 96375; 96374; 99285; 27266; J2704; J3010; J7030; J2405

== ENCOUNTER 2021-02-06 14:49 | Emergency (ER) | payer OTHER, BC ==
--- OUTSIDE RECORDS SUMMARY | 2021-02-06 14:55 | XMS REPORT | Continuity of Care Document ---
:1940 Author Organization [facility] t Address [address] [place] [address] Care Team Providers Name Role Phone Aniya Kenny MD Primary Care Physician [phone] SHALINI Attending Clinician Unavailable Anthony Ambrose MD Attending Clinician ANTHONY AMBROSE Attending Clinician Unavailable ANAT Attending Clinician Unavailable RADHA Attending Clinician Unavailable FESTUS Attending Clinician Unavailable Schuyler BARNES Attending Clinician Unavailable KAMRYN CLEMENT Attending Clinician Unavailable BELLE ZUÑIGA Attending Clinician Unavailable DIDI SIMPSON Attending Clinician Unavailable MARGRET PRITCHARD Attending Clinician Unavailable TAVARES LOPEZ Attending Clinician Unavailable NITISH KEITA Attending Clinician Unavailable NITISH SALAS Attending Clinician Unavailable DAYANA CHARLES Attending Clinician Unavailable RFANCISCA Attending Clinician Unavailable FABY Attending Clinician Unavailable ANAT Admitting Clinician Unavailable ANTHONY AMBROSE Admitting Clinician Unavailable MIREYA Admitting Clinician Unavailable DAYANA CHARLES Admitting Clinician Unavailable MALDONADO MICHELE Admitting Clinician Unavailable FRANCISCA Admitting Clinician Unavailable FABY Admitting Clinician Unavailable Payers Payer Name Policy Type Policy Effective Date Expiration Date Sour ce Number MEDICAREMEDICARE A [id number] 2007 GAURAV Taylor [id number] 2007-P 00:00:00 - Medical resentMedicare Center BLUE CROSS/BLUE [id number] [facility] [facility] SHIELDBCBS INDEMNITY 2 00:00:00 - Sc dical Formerly [facility] [id number] 2015 -[id number], [place] [address] Problems Condition Condition Condition Status Onset Resolution Last Treating Co mments Source Name Details Category Date Date Treatment Clinician Date Hydronephr Hydronephr Disease Active 2016-[address] [facility]sis osis 0-05 [facility] - 00:[facility] Medical 00 [place] Nephrostom Nephrostom Disease Active 2016-[address] y tube y tube 0-05 [facility] - displaced displaced 00:00: Medi yesica 00 [place] Ureteral Ureteral Disease [facility] - 00:00: Medical 00 [place] History of History of Disease Active [facility] cervical cervical 11-02 [facility] - cancer cancer 00:00: Medical 00 Center Allergies, Adverse Reactions, Alerts Allergy Allergy Status Severity Reaction(s) Onset Inactive Treating Comm ents Source Name Type Date Date Clinician Lisinopr Drug Active Other (See Dry cough [facility] il Intolera Comments) 03-19 [facility] - nce 00:00: Medical 00 [place] Family History Family Member Diagnosis Comments Start Date Stop Date Source Natural daughter Heart disease [facility] Natural father Cancer [facility] Natural mother Diabetes [facility] Natural mother Heart disease [facility] Natural sister Diabetes [facility] Social History Social Habit Start Date Stop Date Quantity Comments Source Sex Assigned At [facility] Exposure to Not sure [facility] SARS-CoV2 [facility] (event) Tobacco use and 2020-10-10 2020-10-10 Never used [facility] - exposure 00:00:00 00:00:00 Medical [place] Alcohol intake 2020-10-10 2020-10-[address] [facility] 00:00:00 00:00:00 of alcohol [facility] (finding) Smoking Status Start Date Stop Date Source Never smoker [facility] edical [place] Medications Ordered Filled Start Stop Current Ordering Indication Dosage Frequency Signature Comments Components Source Medication Medication Date Date Medication? Clinician (SIG) Name Name aspirin 81 2021-0 Yes 81mg QD Take [address] MG EC 3-09 by mouth [facility] - tablet 11:59: daily. Medical 10 Center ferrous 2019- Yes 650mg Take 650 [facility] sulfate 325 2-09 mg by [facility] - (65 FE) MG 11:37: mouth Medica l tablet 39 daily with Center breakfast. rOPINIRole 2019-11 Yes restless .25mg Q.5D Take 0.[address] (REQUIP) 2-09 leg mg by [facility] - 0.25 MG 11:28: syndrome mouth 2 Med ical tablet 45 (two) Center times daily. apixaban 2019-11 2020- No 5mg Q.5D Take [address] (ELIQUIS) 5 2-02 12-02 by mouth 2 [facility] - mg Tab 10:37: 00:00 (two) Medical tablet 23 :00 times Center daily. CHOLECALCIF 2019- Yes 1000U Q.5D Take 1,[address] PAO, 6-04 Units by [facility] - VITAMIN D3, 15:24: mouth 2 Med ical (VITAMIN D3 09 (two) Center ORAL) times daily . HYDROcodone 2019-0 Yes 2{tbl} Take [address] -acetaminop 6-04 tablets by Keysha washington (NORCO 15:24: mouth Medica l 10-325) 09 every 6 Center 10-325 mg (six) per tablet hours as needed for Pain . fLUoxetine 2019-0 Yes 10mg QD Take [address] (PROZAC) 10 6-04 by mouth [facility] - MG capsule 15:24: daily. Medic al 09 Center pravastatin 2020-0 Yes 20mg QD Take [address] (PRAVACHOL) 6-04 by mouth [facility] - 20 MG 15:24: nightly. Medical tablet 09 Center potassium 2020-0 Yes 20meq QD Take [address] chloride 6-04 mEq by [facility] - (KLOR-CON) 15:24: mouth Medica l 20 mEq 09 daily . Center packet metoprolol 2020-0 Yes 25mg QD Take [address] (TOPROL-XL) 6-04 by mouth [facility] - 25 MG 24 hr 15:24: daily. Medi yesica tablet 09 Center torsemide 2020-0 Yes 20mg QD Take [address] (DEMADEX) 6-04 by mouth [facility] - 20 MG 15:24: daily. Medical tablet 09 [place] omeprazole Yes 20mg QD Take [address] (PRILOSEC) 6-04 by mouth [facility] - 20 MG 15:24: daily . Medical capsule 09 [place] nystatin 2018-11- No Q.25D Apply [facility] (MYCOSTATIN 0-15 10-14 topically Keysha kes - ) 100,000 00:00: 23:59 4 (four) Med ical unit/gram 00 :00 times Center powder daily. ferrous 2018-11- No 325mg Take [address] sulfate 325 0-15 10-14 tablet [facility] - (65 FE) MG 00:00: 23:59 (325 mg Med ical tablet 00 :00 total) by [place] mouth daily with breakfast. phentermine Yes . [facility] (ADIPEX-P) 9-24 [facility] - 37.5 mg 00:00: Medical tablet 00 [place] metFORMIN Yes 1{tbl} QD Take [address] (GLUCOPHAGE 7-06 tablet by Manda es - ) 500 MG 00:00: mouth Medical tablet 00 daily . [place] Vital Signs Vital Name Observation Time Observation Value Comments Source Systolic blood 2021-01-09 15:43:00 120 mm[Hg] [facility] pressure [facility] Diastolic blood 2021-01-09 15:43:00 72 mm[Hg] [facility] S [facility] pressure [facility] Heart rate 2021-01-09 15:43:00 54 /min [facility] Body temperature 2021-01-09 15:43:00 36.5 Stormy [facility] Respiratory rate 2021-01-09 15:43:00 18 /min [facility] Oxygen saturation in 2021-01-09 15:43:00 100 /min [facility] Arterial blood by Medical Ce nter Pulse oximetry Body height 2021-01-09 13:11:00 157.5 cm [facility] Body weight 2021-01-09 13:11:00 60.782 kg [facility] BMI 2021-01-09 13:11:00 24.51 kg/m2 [facility] Procedures Procedure Date / Time Performed Performing Clinician Sourc e IR NEPHROSTOMY TUBE 2021-01-09 15:23:[address] [facility] CHANGE - LEFT [facility] IR PERCUTANEOUS 2020-10-10 15:20:00 Cy Santo Cruz [facility] - NEPHROSTOMY TUBE [facility] Center PLACEMENT PROTHROMBIN TIME/INR 2020-10-10 10:38:00 Betsy Samson [facility] APTT 2020-10-10 10:38:00 Betsy Samson [facility] s [facility] CBC W/PLT COUNT & AUTO 2020-10-10 10:37:00 Betsy Samson [facility] DIFFERENTIAL [facility] BASIC METABOLIC PANEL 2020-10-10 10:37:00 Betsy Samson [facility] - (7) [facility] IR PERC NEPHROSTOMY - 2020-07-16 13:35:00 Santo Ambrose [facility] - [facility] CBC W/PLT COUNT & AUTO 2020-07-16 10:43:00 Rina Luis [facility] PROTHROMBIN TIME/INR 2020-07-16 10:43:00 Rina Luis [facility] APTT 2020-07-16 10:43:00 Rina Luis [facility] IR NEPHROSTOMY TUBE 2020-04-04 15:51:[address] [facility] CHANGE - RIGHT [facility] APTT 2020-04-04 12:31:00 Rina Luis [facility] CBC W/PLT COUNT & AUTO 2020-04-04 12:31:00 Rina Luis [facility] PROTHROMBIN TIME/INR 2020-04-04 12:31:00 Rina Luis [facility] Plan of Care Planned Activity Planned Date Details Comments Source Future Scheduled 2020-11-[address] [facility] - Test 00:00:00 (12+) [code = Medical Center DEPRESSION SCREENING (12+)] Future Scheduled 2020-07-03 INFLUENZA VACCINE (#1) [facility] Test 00:00:00 [code = INFLUENZA Medical Ce nter VACCINE (#1)] Future Scheduled 2008-11-[address] [facility] [address] [facility] - Test 00:00:00 WELLNESS (YEAR 2 or Medical Center FIRST YEAR if no IPPE) [code = MEDICARE ANNUAL WELLNESS (YEAR 2 or FIRST YEAR if no IPPE)] Future Scheduled 2007 PNEUMOCOCCAL 65+ YRS [facility] - Test 00:00:00 (1 of 1 - Medical Center [id number] PCV13) [code = PNEUMOCOCCAL 65+ YRS (1 of 1 - [id number] PCV13)] Future Scheduled 1992 SHINGLES VACCINES ([address] [facility] - Test 00:00:00 of 2) [code = SHINGLES Medic al Center VACCINES (1 of 2)] Future Scheduled 1961 DTAP/TDAP/TD VACCINES [facility] - Test 00:00:00 (1 - Tdap) [code = Medical C enter DTAP/TDAP/TD VACCINES (1 - Tdap)] Future Scheduled 1960 HEPATITIS C SCREENING [facility] - Test 00:00:00 [code = HEPATITIS C Medical Center SCREENING] Encounters Start End Encounter Admission Attending Care Care Encounter Source Date/Time Date/Time Type Type Clinicians Facility Department ID 2021-01-15 2021-01-15 Outpatient SHALINI [facility] [id number] [place] 00:00:00 00:00:00 AMARI [address] 2020-12-25 2020-12-25 Outpatient [facility] [id number] [place] 00:00:00 00:00:[address] 2020-10-05 2020-10-05 Outpatient ANAT [facility] 2100 [id number] [place] 00:00:00 00:00:[address] 2020-10-05 2020-10-05 Outpatient [facility] [id number] [place] 00:00:00 00:00:[address] 2020-08-03 2020-08-03 Outpatient [facility] [id number] [place] 00:00:00 00:00:[address] 2020-08-03 2020-08-03 Outpatient [facility] [id number] [place] 00:00:00 00:00:[address] 2020-06-12 2020-06-12 Outpatient PARK, DEBBI [facility] 2100 [id number] [place] 00:00:00 00:00:[address] 2020-06-12 2020-06-12 Outpatient PARK, DEBBI [facility] 2100 [id number] [place] 00:00:00 00:00:[address] 2020-05-31 2020-06-03 Inpatient PARK, [facility] 021 [id number] [place] 00:00:00 00:00:[address] 2020-05-28 2020-05-28 Outpatient PARK, DEBBI [facility] [id number] [id number] [place] 00:00:00 00:00:[address] 2020-05-25 2020-05-25 Outpatient NEW, GAGE [facility] [id number] [place] 00:00:00 00:00:[address] 2020-05-25 2020-05-25 Outpatient PARK, DEBBI [facility] 2100 [id number] [place] 00:00:00 00:00:[address] 2020-04-18 2020-04-18 Outpatient PARK, DEBBI [facility] [id number] [place] 00:00:00 00:00:[address] 2020-03-13 2020-03-13 Outpatient PARK, DEBBI [facility] [id number] [place] 00:00:00 00:00:[address] 2020-03-13 2020-03-13 Outpatient PARK, DEBBI [facility] [id number] [id number] [place] 00:00:00 00:00:[address] 2020-03-13 2020-03-13 Outpatient PARK, DEBBI [facility] [id number] [place] 00:00:00 00:00:[address] 2020-02-07 2020-02-07 Outpatient PARK, DEBBI [facility] [id number] [place] 00:00:00 00:00:[address] 2020-02-07 2020-02-07 Outpatient PARK, DEBBI [facility] 2100 [id number] [place] 00:00:00 00:00:[address] 2020-01-26 2020-01-26 Outpatient PARK, DEBBI [facility] [id number] [place] 00:00:00 00:00:[address] 2020-01-16 2020-01-21 Inpatient FESTUS, [facility] [id number] [place] 00:00:00 00:00:00 MARGRTE [address] 2020-01-06 2020-01-06 Outpatient DEBBI COPPOLA [facility] [id number] [place] 00:00:00 00:00:[address] 2020-01-06 2020-01-06 Outpatient DEBBI COPPOLA [facility] 2100 [id number] [place] 00:00:00 00:00:[address] 2020-01-06 2020-01-06 Outpatient DEBBI COPPOLA [facility] [id number] [id number] [place] 00:00:00 00:00:[address] 2020-01-06 2020-01-06 Outpatient DEBBI COPPOLA [facility] [id number] [place] 00:00:00 00:00:[address] 2020-01-06 2020-01-06 Outpatient ANAT DEBBI [facility] [id number] [place] 00:00:00 00:00:[address] 2020-01-06 2020-01-06 Outpatient DEBBI COPPOLA [facility] [id number] [place] 00:00:00 00:00:[address] 2020-01-06 2020-01-06 Outpatient DEBBI COPPOLA [facility] [id number] [place] 00:00:00 00:00:[address] 2020-01-06 2020-01-06 Outpatient ANAT DEBBI [facility] [id number] [place] 00:00:00 00:00:[address] 2020-01-06 2020-01-06 Outpatient DEBBI COPPOLA [facility] [id number] [place] 00:00:00 00:00:[address] 2016-02-07 2016-02-07 Outpatient BLACKBIANCA, [facility] [id number] [place] 00:00:00 00:00:00 ELIO [address] 2015-12-18 2015-12-19 Inpatient FABY, [facility] [id number] [place] 00:00:00 00:00:00 JACKI [address] 2015-12-06 2015-12-06 Outpatient FABY, [facility] [id number] [place] 00:00:00 00:00:00 JACKI [facility] Results Test Test Test Comments Results Result Source Description Time Comments 2020-12 Reason for NEPHROSTOMY -11 Exam:->HYDRONEPHR TUBE CHANGE, 11:34:0 OSIS, UNSPECIFIED [facility] - LEFT 0 [facility]PHROSIS [facility]ENTERName: TYPE (N13.30) LEROY ROBERTS : 1940 Sex: F Addendum BeginsREPORT STATUS:A ADDENDUM:Please note that the amount and type of contrast administered was not correct. Instead Isovue 300 was administered and 40 mL total was given. Signed: Sukhi Oakes MDReport Verified Date/Time: 01/10/2021 11:34:23 Reading Location: [address] Body Reading RoomAddendum EndsFINAL REPORT PROCEDURE: Genitourinary catheter exchange Procedural PersonnelAttending physician(s): Yamila Peguero physician(s): NoneResident physician(s): NoneAdvanced practice provider(s): None Pre-procedure diagnosis: Indwelling right percutaneous nephrostomy and left percutaneous nephroureteral tubesPost-procedure diagnosis: SameIndication: Routine scheduled exchangeAdditional clinical history: None Complications: No immediate complications. IMPRESSION: Successful right 12 -Macedonian PCN exchange and left 10 Macedonian PCNU exchange.Right antegrade nephrostogram demonstrates complete occlusion of the distal right ureter, unable to cross with a Glidewire. Plan: Successful exchange. Routine exchange every 8-10 weeks as long as urinary diversion is required. PROCEDURE SUMMARY- Target organ: Bilateral [place] kidneys- Antegrade nephrostogram(s) via the existing access- Left nephroureteral and right nephrostomy tube exchange- Additional procedure(s): None PROCEDURE DETAILS: Pre-procedureConsent: Informed consent for the procedure including risks, benefits and alternatives was obtained and time-out was performed prior to the procedure.Preparation: The site was prepared and draped using maximal sterile barrier technique including cutaneous antisepsis. Anesthesia/sedationLevel of anesthesia/sedation: No sedationAnesthesia/sedation administered by: Not applicableTotal intra-service sedation time (minutes): Not applicable Right genitourinary catheter exchangeLocal anesthesia was administered. Initial nephrostogram was performed. A wire was placed through the existing tube and it was removed. A Kumpe catheter and Glidewire were used to catheterize the right ureter however distal obstruction was encountered which is unable to be crossed. The new tube was advanced over the wire and position was confirmed with contrast injection.Pre-existing genitourinary catheter: 12 Macedonian multipurpose drainage catheterGenitourinary catheter(s) placed: 12 [place] multipurpose drainage catheter Findings: Complete obstruction of the distal right ureter, unable to be crossed. Successful right percutaneous nephrostomy tube exchange.External catheter securement: Non-absorbable suture Left genitourinary catheter exchangeLocal anesthesia was administered. Initial nephrostogram was performed. A wire was placed through the existing tube and it was removed. The new tube was advanced over the wire and position was confirmed with contrast injection.Pre-existing genitourinary catheter: 10 Macedonian 22 cm nephroureteral catheterGenitourinary catheter(s) placed: 10 Macedonian 22 cm no catheter Findings: Successful exchangeExternal catheter securement: None Additional genitourinary system interventionGenitourinary intervention: NoneLocation of intervention: Not applicableDevice used: Not applicableDescription of intervention: Not applicablePost-intervention findings: Not applicable ContrastContrast agent: Omnipaque 300Contrast volume (mL): 20 Radiation DoseFluoroscopy time (minutes): 9.0 Reference air kerma (mGy): 114 Additional DetailsAdditional description of procedure: NoneEquipment details: NoneSpecimens removed: NoneEstimated blood loss (mL): Less than 10Standardized report: [email or web address] AttestationSigner name: MARKUS Gracia attest that I was present for the entire procedure. I reviewed the stored images and agree with the report as written. Signed: Sukhi Oakes MDReport Verified Date/Time: 01/09/2021 16:21:59 Reading Location: [place] [address] Angio Body Reading Room Nephrosotomy 2020-12 Interface, External Ris In [facility] Tube Change - - 01/10/2021 11:36 AM Keysha kes - Left 16:21:0 CSTAddendum BeginsREPORT Medical 0 STATUS:A PATIENT ID: [facility] [id number] ADDENDUM:Please note that the amount and type of contrast administered was not correct. Instead Isovue 300 was administered and 40 mL total was given. Signed: Sukhi Oakes MDReport Verified Date/Time: 01/10/2021 11:34:23 Reading Location: [place] [address] Angio Body Reading RoomAddendum EndsFINAL REPORT PROCEDURE: Genitourinary catheter exchange Procedural PersonnelAttending physician(s): Yamila Peguero physician(s): NoneResident physician(s): NoneAdvanced practice provider(s): None Pre-procedure diagnosis: Indwelling right percutaneous nephrostomy and left percutaneous nephroureteral tubesPost-procedure diagnosis: SameIndication: Routine scheduled exchangeAdditional clinical history: None Complications: No immediate complications. IMPRESSION: Successful right 12 -Macedonian PCN exchange and left 10 Macedonian PCNU exchange.Right antegrade nephrostogram demonstrates complete occlusion of the distal right ureter, unable to cross with a Glidewire. Plan: Successful exchange. Routine exchange every 8-10 weeks as long as urinary diversion is required. PROCEDURE SUMMARY- Target organ: Bilateral [place] kidneys- Antegrade nephrostogram(s) via the existing access- Left nephroureteral and right nephrostomy tube exchange- Additional procedure(s): None PROCEDURE DETAILS: Pre-procedureConsent: Informed consent for the procedure including risks, benefits and alternatives was obtained and time-out was performed prior to the procedure.Preparation: The site was prepared and draped using maximal sterile barrier technique including cutaneous antisepsis. Anesthesia/sedationLevel of anesthesia/sedation: No sedationAnesthesia/sedation administered by: Not applicableTotal intra-service sedation time (minutes): Not applicable Right genitourinary catheter exchangeLocal anesthesia was administered. Initial nephrostogram was performed. A wire was placed through the existing tube and it was removed. A Kumpe catheter and Glidewire were used to catheterize the right ureter however distal obstruction was encountered which is unable to be crossed. The new tube was advanced over the wire and position was confirmed with contrast injection.Pre-existing genitourinary catheter: 12 Macedonian multipurpose drainage catheterGenitourinary catheter(s) placed: 12 Macedonian multipurpose drainage catheter Findings: Complete obstruction of the distal right ureter, unable to be crossed. Successful right percutaneous nephrostomy tube exchange.External catheter securement: Non-absorbable suture Left genitourinary catheter exchangeLocal anesthesia was administered. Initial nephrostogram was performed. A wire was placed through the existing tube and it was removed. The new tube was advanced over the wire and position was confirmed with contrast injection.Pre-existing genitourinary catheter: 10 Macedonian 22 cm nephroureteral catheterGenitourinary catheter(s) placed: 10 Macedonian 22 cm no catheter Findings: Successful exchangeExternal catheter securement: None Additional genitourinary system interventionGenitourinary intervention: NoneLocation of intervention: Not applicableDevice used: Not applicableDescription of intervention: Not applicablePost-intervention findings: Not applicable ContrastContrast agent: Omnipaque 300Contrast volume (mL): 20 Radiation DoseFluoroscopy time (minutes): 9.0 Reference air kerma (mGy): 114 Additional DetailsAdditional description of procedure: NoneEquipment details: NoneSpecimens removed: NoneEstimated blood loss (mL): Less than 10Standardized report: [email or web address] AttestationSigner name: MARKUS Gracia attest that I was present for the entire procedure. I reviewed the stored images and agree with the report as written. Signed: Sukhi Oakes MDReport Verified Date/Time: 01/09/2021 16:21:59 Reading Location: [place] [address] Angio Body Reading Room , 2020-10 NEPHROSTOMY, -09 PERC, EXTERNAL 17:38:[address] [facility] - DRAIN 0 MEDICAL CENTERName: LEROY ROBERTS : 1940 Sex: F FINAL REPORT Left percutaneous nephroureterostomy and right percutaneous nephrostomy catheter exchange History: Chronic renal obstruction, patient presents for routine exchange of bilateral catheters Modality: Fluoroscopy Sedation: None. Stave Cutting Supervisor: Gerald Baeza MD. Host/Hostess Ground: MD Merrick (fellow) Approach: Via indwelling bilateral nephrostomy catheters Estimated blood loss: < 5 cc. Specimen: None. Fluoroscopy Time: 4.2 min.Reference Air Kerma (Ka, r): 43.7 mGy. Technique: Informed written consent was obtained. [...] Contrast was injected via the indwelling right percutaneous nephrostomy catheter confirming intraluminal position. 2% lidocaine was used for local anesthesia. The existing catheter was cut and a 0.035 wire advanced through the indwelling catheter and coiled within the right renal pelvis. The existing catheter was removed over wire and a new 12 Macedonian nephrostomy catheter was advanced over wire with pigtail formed within the right renal pelvis. Contrast injection confirmed positioning. The catheter spaces skin with silk suture. A sterile dressing was applied. Contrast was injected via the indwelling right percutaneous nephroureteral ostomy catheter confirming intraluminal position. 2% lidocaine was used for local anesthesia. The existing catheter was cut and a 0.035 wire advanced through the catheter and coiled within the urinary bladder. The existing catheter is was removed and a new 10.2 Macedonian by 22 cm nephroureteral ureterostomy catheter was advanced over wire with distal tip terminating within the urinary bladder and proximal pigtail within the left renal pelvis. Contrast injection confirmed positioning. The catheter spaces skin with silk suture. A sterile dressing was applied. The patient tolerated the procedure without immediate complication. Impression: Successful fluoroscopic guided right percutaneous nephrostomy and left percutaneous nephroureterostomy exchange as detailed above. Signed: Gerald Baeza MDReport Verified Date/Time: 10/10/2020 17:38:32 Reading Location: [place] [address] Angio Body Reading Room Percutaneous 2020-10 Interface, External Ris In [facility] Nephrostomy - - - 10/10/2020 5:40 PM [facility] - Ext. Drain 17:38:0 CSTFINAL REPORT PATIENT ID: Medical Placement 0 [id number] Left Center percutaneous nephroureterostomy and right percutaneous nephrostomy catheter exchange History: Chronic renal obstruction, patient presents for routine exchange of bilateral catheters Modality: Fluoroscopy Sedation: None. Stave Cutting Supervisor: Gerald Baeza MD. Host/Hostess Ground: MD Merrick (fellow) Approach: Via indwelling bilateral nephrostomy catheters Estimated blood loss: < 5 cc. Specimen: None. Fluoroscopy Time: 4.2 min.Reference Air Kerma (Ka, r): 43.7 mGy. Technique: Informed written consent was obtained. [...] Contrast was injected via the indwelling right percutaneous nephrostomy catheter confirming intraluminal position. 2% lidocaine was used for local anesthesia. The existing catheter was cut and a 0.035 wire advanced through the indwelling catheter and coiled within the right renal pelvis. The existing catheter was removed over wire and a new 12 Macedonian nephrostomy catheter was advanced over wire with pigtail formed within the right renal pelvis. Contrast injection confirmed positioning. The catheter spaces skin with silk suture. A sterile dressing was applied. Contrast was injected via the indwelling right percutaneous nephroureteral ostomy catheter confirming intraluminal position. 2% lidocaine was used for local anesthesia. The existing catheter was cut and a 0.035 wire advanced through the catheter and coiled within the urinary bladder. The existing catheter is was removed and a new 10.2 Macedonian by 22 cm nephroureteral ureterostomy catheter was advanced over wire with distal tip terminating within the urinary bladder and proximal pigtail within the left renal pelvis. Contrast injection confirmed positioning. The catheter spaces skin with silk suture. A sterile dressing was applied. The patient tolerated the procedure without immediate complication. Impression: Successful fluoroscopic guided right percutaneous nephrostomy and left percutaneous nephroureterostomy exchange as detailed above. Signed: Gerald Baeza MDReport Verified Date/Time: 10/10/2020 17:38:32 Reading Location: [place] [address] Angio Body Reading Room Prothrombin time/INR 2020-10-10 11:04:00 Test Item Value Reference Range Interpretation Comme nts Protime (test code = 13.8 See_Comment [Autom ated message] The 5902-2) system which nerated this result tra nsmitted reference range : 11.9 - 14.2 seconds. T he reference range was not used to interpr et this result as normal/abnormal . INR (test code = 1.09 See_Comment [Automated message] The 8641-6) system which nerated this result tra nsmitted reference range : <=5.90. The reference r earline was not used to int erpret this result as normal/abnormal . EDIL (test code = EDIL) Effective 03/30/2019: PT Reference Range ChangeNew: 11.9-14.2 Previous: 11.7-14.7 RECOMMENDED COUMADIN/WARFARIN INR THERAPY RANGESSTANDARD DOSE: 2.0-3.0 Includes: PROPHYLAXIS for venous thrombosis, systemic embolization; TREATMENT for venous thrombosis and/or pulmonary embolus.HIGH RISK: Target INR is 2.5-3.5 for patients wiht mechanical heart valves. Lab Interpretation Normal (test code = 78766-7) [facility][id number] 11:04:00 Test Item Value Reference Range Interpretation Comments PROTIME (BEAKER) (test code = 13.8 seconds 11.9-14.2 759) INR (BEAKER) (test code = 370) 1.09 <=5.90 Effective 03/30/2019: PT Reference Range ChangeNew: 11.9-14.2 Previous: 11.7- 14.7RECOMMENDED COUMADIN/WARFARIN INR THERAPY RANGESSTANDARD DOSE: 2.0-3.0 Includes: PROPHYLAXIS for venous thrombosis, systemic embolization; TREATMENT for venous thrombosis and/or pulmonary embolus.HIGH RISK: Target INR is2.5-3.5 for patients wiht mechanical heart valves.Basic Metabolic [id number] 11:03:00 Test Item Value Reference Range Interpretation Comments Sodium (test code = 138 meq/L 429-414 8805-2) Potassium (test code = 4.6 meq/L 3.5-5.1 2823-3) Chloride (test code = 106 meq/L 98-107 2075-0) CO2 (test code = 25 meq/L 22-29 8-9) BUN (test code = 29 mg/dL 7-21 H 3094-0) Creatinine (test code 1.00 mg/dL 0.57-1.25 = 2160-0) Glucose (test code = 90 mg/dL 70-105 2345-7) Calcium (test code = 8.5 mg/dL 8.4-10.2 78283-7) EGFR (test code = 54 mL/min/1.73 [place] [address]-2) NOT ACCURATE CREATININE CLEARANCE IN PREDICTING GLOMERULAR FILTRATION RATE . ESTIMATED GFR I S NOT APPLICABLE FOR DIALYSIS PATIENTS. EDIL (test code = EDIL) Through Freight Engineer ID - REID C Lab Interpretation Abnormal (test code = 49777-5) [facility] [id number] 11:03:00 Test Item Value Reference Range Interpretation Comments SODIUM (BEAKER) 138 meq/L 136-145 (test code = 381) POTASSIUM (BEAKER) 4.6 meq/L 3.5-5.1 (test code = 379) CHLORIDE (BEAKER) 106 meq/L 98-107 (test code = 382) CO2 (BEAKER) (test 25 meq/L 22-29 code = 355) BLOOD UREA NITROGEN 29 mg/dL 7-21 H (BEAKER) (test code = 354) CREATININE (BEAKER) 1.00 mg/dL 0.57-1.25 (test code = 358) GLUCOSE RANDOM 90 mg/dL 70-105 (BEAKER) (test code = 652) CALCIUM (BEAKER) 8.5 mg/dL 8.4-10.2 (test code = 697) EGFR (BEAKER) (test 54 mL/min/1.73 ESTIMA AGUSTÍN GFR IS code = 1092) sq m NOT ACCURATE CREATININE CLEARANCE IN PREDICTING GLOMERULAR FILTRATION RATE . ESTIMATED GFR I S NOT APPLICABLE FOR DIALYSIS PATIEN TS. Through Freight Engineer ID - REID [id number] 11:01:00 Test Item Value Reference Range Interpretation Comments PTT (test code = 15857-3) 34.1 See_Comment [ Automated message] The system [employer] generated this result transmitted ref erence range: 22.5 - 3 6.0 seconds. The re ference range was not u sed to interpret this result as normal/abnor mal. Lab Interpretation (test Normal code = 61334-4) [facility] 11:01:00 Test Item Value Reference Range Interpretation Comments PARTIAL THROMBOPLASTIN TIME 34.1 seconds 22.5-36.0 (BEAKER) (test code = 760) CBC with platelet count + automated [id number] 10:55:00 Test Item Value Reference Range Interpretation Comments WBC (test code = 6690-2) 4.6 See_Comment [A utomated message] The system [employer] generated this result transmitted ref erence range: 3.5 - 10 .5 K/L. The refe rence range was not u sed to interpret this result as normal/abnor mal. RBC (test code = 789-8) 3.32 See_Comment L [Au tomated message] The system [employer] generated this result transmitted ref erence range: 3.93 - 5 .22 M/L. The refe rence range was not u sed to interpret this result as normal/abnor mal. MCHC (test code = 786-4) 30.5 See_Comment L [A utomated message] The system [employer] generated this result transmitted ref erence range: 32.2 - 3 5.5 GM/DL. The refe rence range was not u sed to interpret this result as normal/abnor mal. Hematocrit (test code = 34.7 % 34.1-44.9 4544-3) MCV (test code = 787-2) 104.5 fL 79.4-94.8 H MCH (test code = 785-6) 31.9 pg 25.6-32.2 RDW (test code = 788-0) 13.7 % 11.7-14.4 Platelets (test code = 241 See_Comment [Aut omated message] 777-3) The system [employer] generated this result transmitted ref erence range: 150 - 45 0 K/CU MM. The referen ce range was not u sed to interpret this result as normal/abnor mal. MPV (test code = 9.9 fL 9.4-12.3 70161-1) nRBC (test code = 413) 0 See_Comment [Aut omated message] The system [employer] generated this result transmitted ref erence range: 0 - 0 /1 00 WBC. The refere nce range was not u sed to interpret this result as normal/abnor mal. % Neutros (test code = 70 % 429) % Lymphs (test code = 13 % 430) % Monos (test code = 13 % 431) % Eos (test code = 432) 3 % % Baso (test code = 437) 0 % # Neutros (test code = 3.22 See_Comment [Aut omated message] 670) The system [employer] generated this result transmitted ref erence range: 1.56 - 6 .13 K/L. The refe rence range was not u sed to interpret this result as normal/abnor mal. # Lymphs (test code = 0.62 See_Comment L [Auto mated message] 414) The system [employer] generated this result transmitted ref erence range: 1.18 - 3 .74 K/L. The refe rence range was not u sed to interpret this result as normal/abnor mal. # Monos (test code = 0.61 See_Comment H [Autom ated message] 415) The system [employer] generated this result transmitted ref erence range: 0.24 - 0 .36 K/L. The refe rence range was not u sed to interpret this result as normal/abnor mal. # Eos (test code = 416) 0.15 See_Comment [Au tomated message] The system [employer] generated this result transmitted ref erence range: 0.04 - 0 .36 K/L. The refe rence range was not u sed to interpret this result as normal/abnor mal. # Baso (test code = 417) 0.01 See_Comment [A utomated message] The system [employer] generated this result transmitted ref erence range: 0.01 - 0 .08 K/L. The refe rence range was not u sed to interpret this result as normal/abnor mal. Immature 0 % 0-1 Granulocytes-Relative (test code = 2801) Lab Interpretation (test Abnormal code = 01210-2) [facility] W/PLT COUNT & AUTO [id number] 10:55:00 Test Item Value Reference Range Interpretation Comments WHITE BLOOD CELL COUNT (BEAKER) 4.6 K/ L 3.5-10.5 (test code = 775) RED BLOOD CELL COUNT (BEAKER) 3.32 M/ L 3.93-5.22 L (test code = 761) HEMOGLOBIN (BEAKER) (test code = 10.6 GM/DL 11.2-15.7 L 410) HEMATOCRIT (BEAKER) (test code = 34.7 % 34.1-44.9 411) MEAN CORPUSCULAR VOLUME (BEAKER) 104.5 fL 79.4-94.8 H (test code = 753) MEAN CORPUSCULAR HEMOGLOBIN 31.9 pg 25.6-32.2 (BEAKER) (test code = 751) MEAN CORPUSCULAR HEMOGLOBIN CONC 30.5 GM/DL 32.2-35.5 L (BEAKER) (test code = 752) RED CELL DISTRIBUTION WIDTH 13.7 % 11.7-14.4 (BEAKER) (test code = 412) PLATELET COUNT (BEAKER) (test 241 K/CU MM 150-450 code = 756) MEAN PLATELET VOLUME (BEAKER) 9.9 fL 9.4-12.3 (test code = 754) NUCLEATED RED BLOOD CELLS 0 /100 WBC 0-0 (BEAKER) (test code = 413) NEUTROPHILS RELATIVE PERCENT 70 % (BEAKER) (test code = 429) LYMPHOCYTES RELATIVE PERCENT 13 % (BEAKER) (test code = 430) MONOCYTES RELATIVE PERCENT 13 % (BEAKER) (test code = 431) EOSINOPHILS RELATIVE PERCENT 3 % (BEAKER) (test code = 432) BASOPHILS RELATIVE PERCENT 0 % (BEAKER) (test code = 437) NEUTROPHILS ABSOLUTE COUNT 3.22 K/ L 1.56-6.13 (BEAKER) (test code = 670) LYMPHOCYTES ABSOLUTE COUNT 0.62 K/ L 1.18-3.74 L (BEAKER) (test code = 414) MONOCYTES ABSOLUTE COUNT (BEAKER) 0.61 K/ L 0.24-0.36 H (test code = 415) EOSINOPHILS ABSOLUTE COUNT 0.15 K/ L 0.04-0.36 (BEAKER) (test code = 416) BASOPHILS ABSOLUTE COUNT (BEAKER) 0.01 K/ L 0.01-0.08 (test code = 417) IMMATURE GRANULOCYTES-RELATIVE 0 % 0-1 PERCENT (BEAKER) (test code = 2801) ANG, NEPHROSTOMY, PERC, INTERNAL [id number] 17:28:00Reason for Exam:->N13.30FINAL REPORT History: Chronic renal obstruction, patient for routine nephrostomy tube exchange. PROCEDURE: Following informed written consent, the patient's bilateral nephrostomycatheters and surrounding skin sites were prepped and draped in the usual sterile manner. 2% lidocaine was given locally for anesthesia. No conscious sedation was administered. Nephrostogram were performed through the existing catheters to confirm their positions. The catheters were then cut and removed over wires. A new 12 Macedonian right external percutaneous nephrostomy catheter was placed over the wire through the existing tract and into position within the right renal pelvis under fluoroscopic guidance. Repeat contrast injection was performed to confirm position of this catheter. A new 10 Macedonian 22 cm left nephroureterostomy catheter was then placed over the wire and into position within the left renal collecting system again using fluoroscopic guidance. Repeat contrast injection was performed through the catheter was placed to confirm its position. Overall, the patient tolerated the procedurewell without immediate complications and was discharged from the department in stable condition. FINDINGS: Multiple images obtained during the procedure show both pre-existing and new left nephrouretero stomy catheter and right external nephrostomy catheter in expected positions. IMPRESSION: 1. Technically successful uncomplicated fluoroscopically guided exchange of patient's bilateral nephrostomy catheters as described above. Total fluoroscopy time: 2.2 minutes. Estimated total patient dose reported as (Ka,r): 18.3 mGy Signed: Leslie العراقي MDReport Verified Date/Time: 07/18/2020 17:28:56 Reading Location: [place] [address] Angio Body Reading Room IR Percutaneous Nephrostomy - Int. Drain [id number] 17:28:00Interface, External Ris In - 07/18/2020 5:31 PM CDTFINAL REPORT History: Chronic renal obstruction, patient for routine nephrostomy tube exchange. PROCEDURE: Following informed written consent, the patient's bilateral nephrostomy catheters and surrounding skin sites were prepped and draped in the usual sterile manner. 2% lidocaine was given locally for anesthesia. No conscioussedation was administered. Nephrostogram were performed through the existing catheters to confirm their positions. The catheters were then cut and removed over wires. A new 12 Macedonian right external percutaneous nephrostomy catheter was placed over the wire through the existing tract and into position w ithin the right renal pelvis under fluoroscopic guidance. Repeat contrast injection was performed toconfirm position of this catheter. A new 10 Macedonian 22 cm left nephroureterostomy catheter was then placed over the wire and into position within the left renal collecting system again using fluoroscopic guidance. Repeat contrast injection was performed through the catheter was placed to confirm its position. Overall, the patient tolerated the procedure well without immediate complications and was discharged from the department in stable condition. FINDINGS: Multiple images obtained during the procedure show both pre-existing and new left nephroureterostomy catheter and right external nephrostomy catheter in expected positions. IMPRESSION: 1. Technically successful uncomplicated fluoroscopically guided exchange of patient's bilateral nephrostomy catheters as described above. Total fluoroscopy time: 2.2 minutes. Estimated total patient dose reported as (Ka,r): 18.3 mGy Signed: Leslie العراقيeport Verified Date/Time: 07/18/2020 17:28:56 Reading Location: [place] [address] Angio Body [facility] Test Item Value Reference Range Interpretation Comments PARTIAL THROMBOPLASTIN TIME 34.3 seconds 22.5-36.0 (BEAKER) (test code = 760) PROTHROMBIN TIME/[id number] 11:07:00 Test Item Value Reference Range Interpretation Comments PROTIME (BEAKER) (test code = 13.7 seconds 11.9-14.2 759) INR (BEAKER) (test code = 370) 1.08 <=5.90 Effective 03/30/2019: PT Reference Range ChangeNew: 11.9-14.2 Previous: 11.7- 14.7RECOMMENDED COUMADIN/WARFARIN INR THERAPY RANGESSTANDARD DOSE: 2.0-3.0 Includes: PROPHYLAXIS for venous thrombosis, systemic embolization; TREATMENT for venous thrombosis and/or pulmonary embolus.HIGH RISK: Target INR is2.5-3.5 for patients wiht mechanical heart valves.CBC W/PLT COUNT & AUTO [id number] 10:55:00 Test Item Value Reference Range Interpretation Comments WHITE BLOOD CELL COUNT (BEAKER) 5.2 K/ L 3.5-10.5 (test code = 775) RED BLOOD CELL COUNT (BEAKER) 3.06 M/ L 3.93-5.22 L (test code = 761) HEMOGLOBIN (BEAKER) (test code = 9.9 GM/DL 11.2-15.7 L 410) HEMATOCRIT (BEAKER) (test code = 31.5 % 34.1-44.9 L 411) MEAN CORPUSCULAR VOLUME (BEAKER) 102.9 fL 79.4-94.8 H (test code = 753) MEAN CORPUSCULAR HEMOGLOBIN 32.4 pg 25.6-32.2 H (BEAKER) (test code = 751) MEAN CORPUSCULAR HEMOGLOBIN CONC 31.4 GM/DL 32.2-35.5 L (BEAKER) (test code = 752) RED CELL DISTRIBUTION WIDTH 17.5 % 11.7-14.4 H (BEAKER) (test code = 412) PLATELET COUNT (BEAKER) (test 319 K/CU MM 150-450 code = 756) MEAN PLATELET VOLUME (BEAKER) 9.0 fL 9.4-12.3 L (test code = 754) NUCLEATED RED BLOOD CELLS 0 /100 WBC 0-0 (BEAKER) (test code = 413) NEUTROPHILS RELATIVE PERCENT 77 % (BEAKER) (test code = 429) LYMPHOCYTES RELATIVE PERCENT 10 % (BEAKER) (test code = 430) MONOCYTES RELATIVE PERCENT 12 % (BEAKER) (test code = 431) EOSINOPHILS RELATIVE PERCENT 1 % (BEAKER) (test code = 432) BASOPHILS RELATIVE PERCENT 0 % (BEAKER) (test code = 437) NEUTROPHILS ABSOLUTE COUNT 4.00 K/ L 1.56-6.13 (BEAKER) (test code = 670) LYMPHOCYTES ABSOLUTE COUNT 0.51 K/ L 1.18-3.74 L (BEAKER) (test code = 414) MONOCYTES ABSOLUTE COUNT (BEAKER) 0.60 K/ L 0.24-0.36 H (test code = 415) EOSINOPHILS ABSOLUTE COUNT 0.05 K/ L 0.04-0.36 (BEAKER) (test code = 416) BASOPHILS ABSOLUTE COUNT (BEAKER) 0.02 K/ L 0.01-0.08 (test code = 417) IMMATURE GRANULOCYTES-RELATIVE 1 % 0-1 PERCENT (BEAKER) (test code = 2801) ANG, NEPHROSTOMY TUBE CHANGE, [id number] 20:05:00Reason for Exam:->N13.30FINAL REPORT History: Chronic renal obstruction, bilateral cutaneous nephrostomy catheters for routine exchange. PROCEDURE: Following informed written consent, both patient's percutaneous nephrostomy catheters and surrounding skin sites were prepped and draped in the usual sterile manner. Maximum sterile barrier techniques were utilized. 2% lidocaine was given locally for anesthesia. No conscious sedation was administered. Position of both existing catheters was confirmed by injecting a small amount of contrast under fluoroscopy. The catheters were then cut and removed over wires. The patient's left nephroureteral stent was removed over an 035 angled Glidewire and replaced over the same with a new 10.2 Macedonian nephroureteral stent using fluoroscopic guidance and the existingaccess site. Repeat contrast injection was performed to confirm position of the new catheter. The patient's right external nephrostomy catheter was removed and replaced over a JobHorecason wire with a similar size 12 Macedonian external nephrostomy catheter again using the existing access site and fluoroscopicguidance. Once placed, position of the new catheter was confirmed using a small contrast injection under fluoroscopy. Both catheters were placed to external gravity bag drainage. Overall, the patient tolerated the procedure well without immediate complications and was discharged from the department instable condition. FINDINGS: Multiple images obtained during the procedure show both pre-existing andnew percutaneous nephrostomy catheters to lie in expected positions. The right external nephrostomy catheter tip is coiled in the right renal pelvis. The left nephroureteral ureteral stent is also present in expected position, its proximal coil in the renal pelvis and its distal coil in the urinary bladder. Both renal collecting systems are mildly moderately dilated. IMPRESSION: 1. Successful uncomplicated fluoroscopically guided exchange of the patient's percutaneous nephrostomy catheters as described in detail above. Total fluoroscopy time: 4.2 minutes. Estimated total patient dose reported as (Ka,r): 74 mGy Signed: Leslie العراقيeport Verified Date/Time: 04/04/2020 20:05:30 Reading Location: [place] [address] Angio Body Reading Room IR Nephrosotomy Tube Change Right 2020-04-04 20:05:00Interface, External Ris In - 04/04/2020 8:07 PM CDTFINAL REPORT History: Chronic renal obstruction, bilateral cutaneous nephrostomy catheters for routine exchange. PROCEDURE: Following informed written consent, both patient's percutaneous nephrostomy catheters and surrounding skin sites were prepped and draped in the usual sterile manner. Maximum sterile barrier techniques were utilized. 2% lidocaine was given locally for anesthesia. No conscious sedation was administered. Position of both existing catheters was confirmed by injecting a small amount of contrast under fluoroscopy. The catheters were then cut and removed over wires. The patient's left nephroureteral stent wasremoved over an 035 angled Glidewire and replaced over the same with a new 10.2 Macedonian nephroureteral stent using fluoroscopic guidance and the existing access site. Repeat contrast injection was performed to confirm position of the new catheter. The patient's right external nephrostomy catheter was removed and replaced over a JobHorecason wire with a similar size 12 Macedonian external nephrostomy catheter again using the existing access site and fluoroscopic guidance. Once placed, position of the new catheter was confirmed using a small contrast injection under fluoroscopy. Both catheters were placed to external gravity bag drainage. Overall, the patient tolerated the procedure well without immediate complications and was discharged from the department in stable condition. FINDINGS: Multiple images obtained during the procedure show both pre-existing and new percutaneous nephrostomy catheters to lie inexpected positions. The right external nephrostomy catheter tip is coiled in the right renal pelvis.The left nephroureteral ureteral stent is also present in expected position, its proximal coil in the renal pelvis and its distal coil in the urinary bladder. Both renal collecting systems are mildly moderately dilated. IMPRESSION: 1. Successful uncomplicated fluoroscopically guided exchange of the patient's percutaneous nephrostomy catheters as described in detail above. Total fluoroscopy time: 4.2 minutes. Estimated total patient dose reported as (Ka,r): 74 mGy Signed: Leslie العراقي MDReport Verified Date/Time: 04/04/2020 20:05:30 Reading Location: [place] [address] Angio Body Reading [facility] 12:53:00 Test Item Value Reference Range Interpretation Comments PARTIAL THROMBOPLASTIN TIME 34.5 seconds 22.5-36.0 (BEAKER) (test code = 760) PROTHROMBIN [id number] 12:52:00 Test Item Value Reference Range Interpretation Comments PROTIME (BEAKER) (test code = 14.2 seconds 11.9-14.2 759) INR (BEAKER) (test code = 370) 1.1 <=5.9 Effective 03/30/2019: PT Reference Range ChangeNew: 11.9-14.2 Previous: 11.7- 14.7RECOMMENDED COUMADIN/WARFARIN INR THERAPY RANGESSTANDARD DOSE: 2.0-3.0 Includes: PROPHYLAXIS for venous thrombosis, systemic embolization; TREATMENT for venous thrombosis and/or pulmonary embolus.HIGH RISK: Target INR is2.5-3.5 for patients wiht mechanical heart valves.CBC W/PLT COUNT & AUTO [id number] 12:47:00 Test Item Value Reference Range Interpretation Comments WHITE BLOOD CELL COUNT (BEAKER) 5.2 K/ L 3.5-10.5 (test code = 775) RED BLOOD CELL COUNT (BEAKER) 3.06 M/ L 3.93-5.22 L (test code = 761) HEMOGLOBIN (BEAKER) (test code = 9.2 GM/DL 11.2-15.7 L 410) HEMATOCRIT (BEAKER) (test code = 30.2 % 34.1-44.9 L 411) MEAN CORPUSCULAR VOLUME (BEAKER) 98.7 fL 79.4-94.8 H (test code = 753) MEAN CORPUSCULAR HEMOGLOBIN 30.1 pg 25.6-32.2 (BEAKER) (test code = 751) MEAN CORPUSCULAR HEMOGLOBIN CONC 30.5 GM/DL 32.2-35.5 L (BEAKER) (test code = 752) RED CELL DISTRIBUTION WIDTH 18.6 % 11.7-14.4 H (BEAKER) (test code = 412) PLATELET COUNT (BEAKER) (test 282 K/CU MM 150-450 code = 756) MEAN PLATELET VOLUME (BEAKER) 9.4 fL 9.4-12.3 (test code = 754) NUCLEATED RED BLOOD CELLS 0 /100 WBC 0-0 (BEAKER) (test code = 413) NEUTROPHILS RELATIVE PERCENT 72 % (BEAKER) (test code = 429) LYMPHOCYTES RELATIVE PERCENT 12 % (BEAKER) (test code = 430) MONOCYTES RELATIVE PERCENT 13 % (BEAKER) (test code = 431) EOSINOPHILS RELATIVE PERCENT 2 % (BEAKER) (test code = 432) BASOPHILS RELATIVE PERCENT 0 % (BEAKER) (test code = 437) NEUTROPHILS ABSOLUTE COUNT 3.72 K/ L 1.56-6.13 (BEAKER) (test code = 670) LYMPHOCYTES ABSOLUTE COUNT 0.64 K/ L 1.18-3.74 L (BEAKER) (test code = 414) MONOCYTES ABSOLUTE COUNT (BEAKER) 0.66 K/ L 0.24-0.36 H (test code = 415) EOSINOPHILS ABSOLUTE COUNT 0.09 K/ L 0.04-0.36 (BEAKER) (test code = 416) BASOPHILS ABSOLUTE COUNT (BEAKER) 0.02 K/ L 0.01-0.08 (test code = 417) IMMATURE GRANULOCYTES-RELATIVE 0 % 0-1 PERCENT (BEAKER) (test code = 2801) ANG, NEPHROSTOMY TUBE CHANGE, [id number] 16:06:00Reason for Exam:->uti w/o hematuria site unspecified, hydrohephrosisFINAL REPORT PROCEDURE: Percutaneous nephrostomy catheter placement CLINICAL H ISTORY: uti w/o hematuria site unspecified, hydronephrosis unspecified BEEF SELECTOR: Damian Quiros DO, JD ANESTHESIA: Local lidocaine. DEVICE: On the right 12 Macedonian pigtail catheter, on the left 10.2 Macedonian 22 cm nephroureteral stent DOSE INFORMATION - [...] with change in the same fashion. Per patientrequest a suture was used to secure the catheter to the skin site. The patient tolerated procedure well without immediate complication and was transported to the floor/recovery area in stable condition. IMPRESSION: Successful right percutaneous nephrostomy catheter exchange and left percutaneous nephroureteral stent exchange. Routine exchange recommended. Signed: Damian Quiros MDReport Verified Date/Time: 12/26/2019 16:06:22 Reading Location: [place] [address] Angio Body Reading Room ANG, NEPHROSTOMY TUBE CHANGE, [id number] 16:06:00Reason for Exam:->uti w/o hematuria site unspecified, hydronephrosis unspecifiedFINAL REPORT PROCEDURE: Percutaneous nephrostomy catheter placement CLINICAL HISTORY: uti w/o hematuria site unspecified, hydronephrosis unspecified BEEF SELECTOR: Damian Quiros DO, JD ANESTHESIA: Local lidocaine. DEVICE: On the right 12 Macedonian pigtail catheter, on the left 10.2 Macedonian 22 cm nephroureteral stent DOSE INFORMATION - [...] with change in the same fashion. Per patientrequest a suture was used to secure the catheter to the skin site. The patient tolerated procedure well without immediate complication and was transported to the floor/recovery area in stable condition. IMPRESSION: Successful right percutaneous nephrostomy catheter exchange and left percutaneous nephroureteral stent exchange. Routine exchange recommended. Signed: Damian Quiros MDReport Verified Date/Time: 12/26/2019 16:06:22 Reading Location: [place] [address] Angio Body Reading Room ANG, NEPHROSTOMY TUBE CHANGE, [id number] 12:12:00Reason for Exam:->Chronic bilateral nephrostomy tubes for bilateral ureteral obstruction.FINAL REPORT Fluoroscopic guided right nephrostomy and left nephroureterostomy catheter exchange. History: Chronic ureteral obstruction Modality: Fluoroscopy Sedation: None Stave Cutting Supervisor: Tutu Kruse MD Host/Hostess Ground: None. Approach: Via indwelling bilateral catheters Estimated [...] for this procedure, including utilization of sterile scrubsolution for skin prep, a large sterile sheet to cover the areas of the patient that were not prepped, and hand hygiene, mask, head covering, and sterile gown for performing radiologist and scrub technologist. 1% lidocaine was used for local anesthesia. Contrast was injected via the indwelling left per cutaneous nephroureterostomy catheter confirming intraluminal position. The existing catheter was cut. A 0.035 wire was advanced through the existing catheter into the urinary bladder. The existing catheter was removed over wire. A new 10.2 Macedonian by 22 cm nephroureterostomy catheter was advanced overwire with distal pigtail formed within the urinary bladder and proximal pigtail within the left renal pelvis. Contrast injection confirmed position. No external suture was used per patient's preference. A sterile dressing was applied. 1% lidocaine was used for local anesthesia. The indwelling right nephrostomy catheter was found be excluded. A wire was advanced through the indwelling catheter and theexisting catheter was removed. A new 12 Macedonian nephrostomy catheter was advanced over wire with pigtail formed within the right renal pelvis. No external suture was used per patient's preference. A sterile dressing was applied. The patient tolerated the procedure without immediate complication. Impression: Successful fluoroscopic guided left percutaneous nephroureterostomy and right sided percutaneous nephrostomy catheter exchange. Signed: Tutu KruseMDReport Verified Date/Time: 10/11/2019 12:12:41 Reading Location: [place] [address] Angio Body Reading Room APTT 2019-10-10 10:56:00 Test Item Value Reference Range Interpretation Comments PARTIAL THROMBOPLASTIN TIME 43.6 seconds 22.5-36.0 H (BEAKER) (test code = 760) PROTHROMBIN [id number] 10:55:00 Test Item Value Reference Range Interpretation Comments PROTIME (BEAKER) (test code = 17.4 seconds 11.9-14.2 H 759) INR (BEAKER) (test code = 370) 1.5 <=5.9 Effective 03/30/2019: PT Reference Range ChangeNew: 11.9-14.2 Previous: 11.7- 14.7RECOMMENDED COUMADIN/WARFARIN INR THERAPY RANGESSTANDARD DOSE: 2.0-3.0 Includes: PROPHYLAXIS for venous thrombosis, systemic embolization; TREATMENT for venous thrombosis and/or pulmonary embolus.HIGH RISK: Target INR is2.5-3.5 for patients wiht mechanical heart valves.CBC W/PLT COUNT & AUTO [id number] 10:48:00 Test Item Value Reference Range Interpretation Comments WHITE BLOOD CELL COUNT (BEAKER) 7.5 K/ L 3.5-10.5 (test code = 775) RED BLOOD CELL COUNT (BEAKER) 3.19 M/ L 3.93-5.22 L (test code = 761) HEMOGLOBIN (BEAKER) (test code = 9.4 GM/DL 11.2-15.7 L 410) HEMATOCRIT (BEAKER) (test code = 31.3 % 34.1-44.9 L 411) MEAN CORPUSCULAR VOLUME (BEAKER) 98.1 fL 79.4-94.8 H (test code = 753) MEAN CORPUSCULAR HEMOGLOBIN 29.5 pg 25.6-32.2 (BEAKER) (test code = 751) MEAN CORPUSCULAR HEMOGLOBIN CONC 30.0 GM/DL 32.2-35.5 L (BEAKER) (test code = 752) RED CELL DISTRIBUTION WIDTH 16.1 % 11.7-14.4 H (BEAKER) (test code = 412) PLATELET COUNT (BEAKER) (test 399 K/CU MM 150-450 code = 756) MEAN PLATELET VOLUME (BEAKER) 9.0 fL 9.4-12.3 L (test code = 754) NUCLEATED RED BLOOD CELLS 0 /100 WBC 0-0 (BEAKER) (test code = 413) NEUTROPHILS RELATIVE PERCENT 77 % (BEAKER) (test code = 429) LYMPHOCYTES RELATIVE PERCENT 11 % (BEAKER) (test code = 430) MONOCYTES RELATIVE PERCENT 9 % (BEAKER) (test code = 431) EOSINOPHILS RELATIVE PERCENT 2 % (BEAKER) (test code = 432) BASOPHILS RELATIVE PERCENT 0 % (BEAKER) (test code = 437) NEUTROPHILS ABSOLUTE COUNT 5.71 K/ L 1.56-6.13 (BEAKER) (test code = 670) LYMPHOCYTES ABSOLUTE COUNT 0.81 K/ L 1.18-3.74 L (BEAKER) (test code = 414) MONOCYTES ABSOLUTE COUNT (BEAKER) 0.68 K/ L 0.24-0.36 H (test code = 415) EOSINOPHILS ABSOLUTE COUNT 0.18 K/ L 0.04-0.36 (BEAKER) (test code = 416) BASOPHILS ABSOLUTE COUNT (BEAKER) 0.03 K/ L 0.01-0.08 (test code = 417) IMMATURE GRANULOCYTES-RELATIVE 1 % 0-1 PERCENT (BEAKER) (test code = 2801) PROTHROMBIN [id number] 14:50:00 Test Item Value Reference Range Interpretation Comments PROTIME (BEAKER) (test code = 18.4 seconds 11.9-14.2 H 759) INR (BEAKER) (test code = 370) 1.6 <=5.9 Effective 03/30/2019: PT Reference Range ChangeNew: 11.9-14.2 Previous: 11.7- 14.7RECOMMENDED COUMADIN/WARFARIN INR THERAPY RANGESSTANDARD DOSE: 2.0-3.0 Includes: PROPHYLAXIS for venous thrombosis, systemic embolization; TREATMENT for venous thrombosis and/or pulmonary embolus.HIGH RISK: Target INR is2.5-3.5 for patients wiht mechanical heart valves.URINALYSIS W/ [id number] 14:42:00 Test Item Value Reference Range Interpretation Comments COLOR (BEAKER) (test code Yellow = 470) CLARITY (BEAKER) (test Hazy code = 469) SPECIFIC GRAVITY UA 1.019 1.001-1.035 (BEAKER) (test code = 468) PH UA (BEAKER) (test code 8.0 5.0-8.0 = 467) PROTEIN UA (BEAKER) (test 100 mg/dL Negative A code = 464) GLUCOSE UA (BEAKER) (test Negative Negative code = 365) KETONES UA (BEAKER) (test Negative Negative code = 371) BILIRUBIN UA (BEAKER) Negative Negative (test code = 462) BLOOD UA (BEAKER) (test Small Negative A code = 461) NITRITE UA (BEAKER) (test Positive Negative A code = 465) LEUKOCYTE ESTERASE UA Large Negative A (BEAKER) (test code = 466) UROBILINOGEN UA (BEAKER) 0.2 mg/dL 0.2-1.0 (test code = 463) RBC UA (BEAKER) (test code 28 /HPF = 519) WBC UA (BEAKER) (test code 53 /HPF = 520) BACTERIA (BEAKER) (test Moderate code = 517) MUCUS (BEAKER) (test code Few = 1574) TRIPLE PHOSPHATE CRYSTALS Few (BEAKER) (test code = 1582) YEAST (BEAKER) (test code Moderate = 1585) SOURCE(BEAKER) (test code Urine, Nephrostomy = 5795) BASIC METABOLIC [id number] 14:37:00 Test Item Value Reference Range Interpretation Comments SODIUM (BEAKER) 136 meq/L 136-145 (test code = 381) POTASSIUM (BEAKER) 4.4 meq/L 3.5-5.1 (test code = 379) CHLORIDE (BEAKER) 103 meq/L 98-107 (test code = 382) CO2 (BEAKER) (test 27 meq/L 22-29 code = 355) BLOOD UREA NITROGEN 23 mg/dL 7-21 H (BEAKER) (test code = 354) CREATININE (BEAKER) 0.98 mg/dL 0.57-1.25 (test code = 358) GLUCOSE RANDOM 90 mg/dL 70-105 (BEAKER) (test code = 652) CALCIUM (BEAKER) 8.9 mg/dL 8.4-10.2 (test code = 697) EGFR (BEAKER) (test 55 mL/min/1.73 ESTIMA AGUSTÍN GFR IS code = 1092) sq m NOT ACCURATE CREATININE CLEARANCE IN PREDICTING GLOMERULAR FILTRATION RATE . ESTIMATED GFR I S NOT APPLICABLE FOR DIALYSIS PATIEN TS. CBC W/PLT COUNT & AUTO [id number] 14:22:00 Test Item Value Reference Range Interpretation Comments WHITE BLOOD CELL COUNT (BEAKER) 6.0 K/ L 3.5-10.5 (test code = 775) RED BLOOD CELL COUNT (BEAKER) 3.34 M/ L 3.93-5.22 L (test code = 761) HEMOGLOBIN (BEAKER) (test code = 9.7 GM/DL 11.2-15.7 L 410) HEMATOCRIT (BEAKER) (test code = 33.0 % 34.1-44.9 L 411) MEAN CORPUSCULAR VOLUME (BEAKER) 98.8 fL 79.4-94.8 H (test code = 753) MEAN CORPUSCULAR HEMOGLOBIN 29.0 pg 25.6-32.2 (BEAKER) (test code = 751) MEAN CORPUSCULAR HEMOGLOBIN CONC 29.4 GM/DL 32.2-35.5 L (BEAKER) (test code = 752) RED CELL DISTRIBUTION WIDTH 16.2 % 11.7-14.4 H (BEAKER) (test code = 412) PLATELET COUNT (BEAKER) (test 363 K/CU MM 150-450 code = 756) MEAN PLATELET VOLUME (BEAKER) 9.3 fL 9.4-12.3 L (test code = 754) NUCLEATED RED BLOOD CELLS 0 /100 WBC 0-0 (BEAKER) (test code = 413) NEUTROPHILS RELATIVE PERCENT 68 % (BEAKER) (test code = 429) LYMPHOCYTES RELATIVE PERCENT 15 % (BEAKER) (test code = 430) MONOCYTES RELATIVE PERCENT 14 % (BEAKER) (test code = 431) EOSINOPHILS RELATIVE PERCENT 2 % (BEAKER) (test code = 432) BASOPHILS RELATIVE PERCENT 1 % (BEAKER) (test code = 437) NEUTROPHILS ABSOLUTE COUNT 4.10 K/ L 1.56-6.13 (BEAKER) (test code = 670) LYMPHOCYTES ABSOLUTE COUNT 0.91 K/ L 1.18-3.74 L (BEAKER) (test code = 414) MONOCYTES ABSOLUTE COUNT (BEAKER) 0.82 K/ L 0.24-0.36 H (test code = 415) EOSINOPHILS ABSOLUTE COUNT 0.12 K/ L 0.04-0.36 (BEAKER) (test code = 416) BASOPHILS ABSOLUTE COUNT (BEAKER) 0.03 K/ L 0.01-0.08 (test code = 417) IMMATURE GRANULOCYTES-RELATIVE 0 % 0-1 PERCENT (BEAKER) (test code = 2801) RAD, ABDOMEN/KUB, 1 VIEW [id number] 18:36:00Reason for exam:->FLANK PAIN FINAL REPORT Abdomen. MEDICAL HISTORY: Flank pain. COMPARISON [...] acute abnormality seen on plain film. Signed: Everett Nicholson MDReport Verified Date/Time: 08/15/2019 18:36:07 Reading Location: [address] Consult Reading Room , NEPHROSTOMY TUBE CHANGE, [id number] 18:18:00Reason for Exam:->hydronephrosisFINAL REPORT Procedure: Right percutaneous nephrostomy catheter exchange. Left percutaneous nephroureterostomy catheter exchange. History: Routine maintenance. . Stave Cutting Supervisor: Yaya Templetno M.D. Host/Hostess Ground: None. Modality: Fluoroscopy. DOSE REDUCTION: The examination [...] local infiltration. Medicines: Not applicable Contrast medium: [id number], 30 cc. Estimated blood loss: < 5 [...] draped in the standard sterile fashion. A pizzamaker radiograph was performed showing the catheter to [...] Complications: None immediate. Findings:As above. Impression:Successful fluoroscopic g uided 12 Macedonian right nephrostomy catheter exchange and 10.2 Macedonian by 24 cm left nephroureteral stent exchange as described above. Further management dictated by the clinical scenario. The nephrostomycatheter should be exchanged at the latest in three months. Thank you for the opportunity to assist in the care of your patient. Signed: Yaya Templeton MDReport Verified Date/Time: 08/15/2019 18:18:25 Reading Location: [place] [address] Angio Body Reading Room CBC W/PLT COUNT & AUTO [id number] 17:21:00 Test Item Value Reference Range Interpretation Comments WHITE BLOOD CELL COUNT (BEAKER) 13.6 K/ L 3.5-10.5 H (test code = 775) RED BLOOD CELL COUNT (BEAKER) 2.91 M/ L 3.93-5.22 L (test code = 761) HEMOGLOBIN (BEAKER) (test code = 8.7 GM/DL 11.2-15.7 L 410) HEMATOCRIT (BEAKER) (test code = 27.3 % 34.1-44.9 L 411) MEAN CORPUSCULAR VOLUME (BEAKER) 93.8 fL 79.4-94.8 (test code = 753) MEAN CORPUSCULAR HEMOGLOBIN 29.9 pg 25.6-32.2 (BEAKER) (test code = 751) MEAN CORPUSCULAR HEMOGLOBIN CONC 31.9 GM/DL 32.2-35.5 L (BEAKER) (test code = 752) RED CELL DISTRIBUTION WIDTH 16.2 % 11.7-14.4 H (BEAKER) (test code = 412) PLATELET COUNT (BEAKER) (test 476 K/CU MM 150-450 H code = 756) MEAN PLATELET VOLUME (BEAKER) 9.5 fL 9.4-12.3 (test code = 754) NUCLEATED RED BLOOD CELLS 0 /100 WBC 0-0 (BEAKER) (test code = 413) (CELLAVISION MANUAL DIFF)2019-08-15 17:21:00 Test Item Value Reference Range Interpretation Comments NEUTROPHILS - REL 80 % (CELLAVISION)(BEAKER) (test code = 2816) LYMPHOCYTES - REL 9 % (CELLAVISION)(BEAKER) (test code = 2817) MONOCYTES - REL 8 % (CELLAVISION)(BEAKER) (test code = 2818) METAMYELOCYTES - REL 1 % 0-0 H (CELLAVISION)(BEAKER) (test code = 2821) MYELOCYTES - REL 1 % 0-0 H (CELLAVISION)(BEAKER) (test code = 2822) BANDS - REL (CELLAVISION)(BEAKER) 1 % 0-10 (test code = 2826) NEUTROPHILS - ABS 10.88 K/ul 1.56-6.13 H (CELLAVISION)(BEAKER) (test code = 2830) LYMPHOCYTES - ABS 1.22 K/ul 1.18-3.74 (CELLAVISION)(BEAKER) (test code = 2831) MONOCYTES - ABS 1.09 K/uL 0.24-0.36 H (CELLAVISION)(BEAKER) (test code = 2832) METAMYELOCYTES - ABS 0.14 K/uL 0.00-0.00 H (CELLAVISION)(BEAKER) (test code = 2836) MYELOCYTES-ABS 0.14 K/uL 0.00-0.00 H (CELLAVISION)(BEAKER) (test code = 2837) BANDS - ABS (CELLAVISION)(BEAKER) 0.14 K/uL 0.00-0.80 (test code = 2840) TOTAL COUNTED (BEAKER) (test code 100 = 1351) WBC MORPHOLOGY (BEAKER) (test code Normal = 487) GIANT PLATELETS (BEAKER) (test Present code = 313) POLYCHROMATOPHILLIC RBCS(BEAKER) 1+ few (test code = 478) POIKILOCYTES (BEAKER) (test code = 1+ few 966) TARGET CELLS (BEAKER) (test code = 1+ few 480) OVALOCYTES (BEAKER) (test code = 1+ few 477) PLATELET CONCENTRATION Increased (CELLAVISION)(BEAKER) (test code = 3438) Received comment: User comments: Slide comments:BASIC METABOLIC [id number] 17:15:00 Test Item Value Reference Range Interpretation Comments SODIUM (BEAKER) 137 meq/L 136-145 (test code = 381) POTASSIUM (BEAKER) 4.0 meq/L 3.5-5.1 (test code = 379) CHLORIDE (BEAKER) 103 meq/L 98-107 (test code = 382) CO2 (BEAKER) (test 24 meq/L 22-29 code = 355) BLOOD UREA NITROGEN 35 mg/dL 7-21 H (BEAKER) (test code = 354) CREATININE (BEAKER) 1.53 mg/dL 0.57-1.25 H (test code = 358) GLUCOSE RANDOM 146 mg/dL 70-105 H (BEAKER) (test code = 652) CALCIUM (BEAKER) 9.2 mg/dL 8.4-10.2 (test code = 697) EGFR (BEAKER) (test 33 mL/min/1.73 ESTIMA AGUSTÍN GFR IS code = 1092) sq m NOT ACCURATE CREATININE CLEARANCE IN PREDICTING GLOMERULAR FILTRATION RATE . ESTIMATED GFR I S NOT APPLICABLE FOR DIALYSIS PATIEN TS. URINALYSIS W/ REFLEX URINE [id number] 17:12:00 Test Item Value Reference Range Interpretation Comments COLOR (BEAKER) (test code = 470) Dark Red CLARITY (BEAKER) (test code = 469) Turbid SPECIFIC GRAVITY UA (BEAKER) (test 1.015 1.001-1.035 code = 468) PH UA (BEAKER) (test code = 467) 7.0 5.0-8.0 PROTEIN UA (BEAKER) (test code = 200 mg/dL Negative A 464) GLUCOSE UA (BEAKER) (test code = Negative Negative 365) KETONES UA (BEAKER) (test code = Negative Negative 371) BILIRUBIN UA (BEAKER) (test code = Negative Negative 462) BLOOD UA (BEAKER) (test code = 461) Large Negative A NITRITE UA (BEAKER) (test code = Negative Negative 465) LEUKOCYTE ESTERASE UA (BEAKER) Large Negative A (test code = 466) UROBILINOGEN UA (BEAKER) (test code 0.2 mg/dL 0.2-1.0 = 463) RBC UA (BEAKER) (test code = 519) > /HPF WBC UA (BEAKER) (test code = 520) > /HPF SOURCE(BEAKER) (test code = 2795) [id number] 12:26:00 Test Item Value Reference Range Interpretation Comments MAGNESIUM (BEAKER) (test code = 1.8 mg/dL 1.6-2.6 627) BASIC METABOLIC [id number] 12:26:00 Test Item Value Reference Range Interpretation Comments SODIUM (BEAKER) 136 meq/L 136-145 (test code = 381) POTASSIUM (BEAKER) 3.4 meq/L 3.5-5.1 L (test code = 379) CHLORIDE (BEAKER) 94 meq/L 98-107 L (test code = 382) CO2 (BEAKER) (test 31 meq/L 22-29 H code = 355) BLOOD UREA NITROGEN 38 mg/dL 7-21 H (BEAKER) (test code = 354) CREATININE (BEAKER) 1.25 mg/dL 0.57-1.25 (test code = 358) GLUCOSE RANDOM 105 mg/dL 70-105 (BEAKER) (test code = 652) CALCIUM (BEAKER) 9.5 mg/dL 8.4-10.2 (test code = 697) EGFR (BEAKER) (test 42 mL/min/1.73 ESTIMA AGUSTÍN GFR IS code = 1092) sq m NOT ACCURATE CREATININE CLEARANCE IN PREDICTING GLOMERULAR FILTRATION RATE . ESTIMATED GFR I S NOT APPLICABLE FOR DIALYSIS PATIEN TSMelvin MULLINS, NEPHROSTOMY TUBE CHANGE, [id number] 13:53:00Reason for Exam:- >hydronephrosis unspecifiedFINAL REPORT Fluoroscopic guided right nephrostomy and left nephroureterostomy catheter exchange. History: Chronic ureteral obstruction Modality: Fluoroscopy Sedation: None Stave Cutting Supervisor: Gerald Baeza MD. Host/Hostess Ground: None. Approach: Via indwelling bilateral catheters Estimated [...] for this procedure, including utilization of sterile scr ub solution for skin prep, a large sterile [...] The Glidewire was exchanged over a 4 Macedonian Walsh catheter for a 0.035 inch Bentson wire. A new 10.2 Macedonian by 24 cm nephroureterostomy catheter was advanced [...] through the indwelling catheter. Subsequently, a 4 Macedonian Walsh catheter and 0.035 angled Glidewire was advanced alongside the catheter and access to the right renal pelvis was obtained. The existing catheter was rem mitchel. The Glidewire was exchanged for a 0.035 Bentson wire. A new 12 Macedonian nephrostomy catheter wasadvanced over wire with pigtail formed within the right renal pelvis. The catheter was fixed to the skin with silk suture. A sterile dressing was applied. The patient tolerated the procedure without immediate complication. Impression: Successful fluoroscopic guided left percutaneous nephroureterostomy and right sided percutaneous nephrostomy catheter exchange. Signed: Gerald Baeza MDReport Verified Date/Time: 06/02/2019 13:53:40 Reading Location: [place] [address] Angio Body Reading Room ANG, NEPHROSTOMY TUBE CHANGE, LEFT 2019-02-23 19:15:00Reason for Exam:->hydronephrosis unspecifiedFINAL REPORT History: Chronic renal obstruction for routine nephrostomy catheter exchange. PROCEDURE: Following informed written consent, the patient was [...] was then cut and removed over a [employer] wire. A new 12 Macedonian external nephrostomy catheter was placed over the wire, through the existing tract and into position within the right renal pelvis under fl uoroscopic control. Repeat contrast injection was performed to confirm position. The new catheter was then secured to the skin using 2-0 silk suture and placed to external gravity bag drainage. The patient's indwelling left nephroureteral stent was then cut and removed over a wire. A new 10 Macedonian by 24 cm nephroureteral stent was placed [...] the procedure show both pre-existing and new nephrostomy catheters to lie in expected positions. The right external nephrostomy catheter is coiled within the right renal pelvis. The left nephroureteral stent catheter lies in expected position with its distal tip coiled in the urinary bladder and its proximal tip coiled in the left renal collecting system. Extensive lumbar surgical hardware is also noted. IMPRESSION: 1. Successful uncomplicated fluoroscopically guided exchange of the patient's right external and left internal/external nephrostomy catheters, as described in detail above. Total fluoroscopy time:1.5 minutes. Estimated total patient dose reported as (Ka,r): 45 mGy Signed: العراقي, Leslie MDReport Verified Date/Time: 02/23/2019 19:15:22 Reading Location: [facility] B1 P048 Angio Body Reading Room [facility] METABOLIC [id number] 11:18:00 Test Item Value Reference Range Interpretation Comments SODIUM (BEAKER) 137 meq/L 136-145 (test code = 381) POTASSIUM (BEAKER) 4.4 meq/L 3.5-5.1 (test code = 379) CHLORIDE (BEAKER) 106 meq/L 98-107 (test code = 382) CO2 (BEAKER) (test 23 meq/L 22-29 code = 355) BLOOD UREA NITROGEN 32 mg/dL 7-21 H (BEAKER) (test code = 354) CREATININE (BEAKER) 1.10 mg/dL 0.57-1.25 (test code = 358) GLUCOSE RANDOM 128 mg/dL 70-105 H (BEAKER) (test code = 652) CALCIUM (BEAKER) 9.2 mg/dL 8.4-10.2 (test code = 697) EGFR (BEAKER) (test 48 mL/min/1.73 ESTIMA AGUSTÍN GFR IS code = 1092) sq m NOT ACCURATE CREATININE CLEARANCE IN PREDICTING GLOMERULAR FILTRATION RATE . ESTIMATED GFR I S NOT APPLICABLE FOR DIALYSIS PATIEN TS. MULLINS, NEPHROSTOMY TUBE CHANGE, [id number] 17:38:00Reason for Exam:->[id number] FINAL REPORT Fluoroscopic guided right nephrostomy tube and left nephroureterostomy catheter replacement, 11/25/2018. Clinical History: Ureteral obstruction. Modality: Fluoroscopy. Stave Cutting Supervisor: Jenny. Host/Hostess Ground: Macario. Sedation: None. Estimated Blood Loss: Less [...] catheter was removed and a new 10.2 Macedonian x 24 cm nephrostomy catheter was advancedover [...] catheter was removed and a new 12 Macedonian drainage catheter was advanced over the wire into the right renal pelvis. The patient tolerated the procedure well, without immediate complications. The patient's vital signs remained stable throughout the procedure. Patient disposition: The patient was discharged from the department in stable condition. Impression:Successful and uncomplicated fluoroscopic guided right nephrostomy tube and left nephroureterostomy catheter replacement. Signed: Tray Alvarado [facility] H[facility]PITALeport Verified Date/Time: 11/25/2018 17:38:15 Reading Location: [place] [address] Angio Body Reading Room 05:38 PMANG, NEPHROSTOMY TUBE CHANGE, [id number] 14:10:00Reason for Exam:->hydronephrosis unspecified hydronephrosis typeFINAL REPORT Right percutaneous nephrostomy and left percutaneous nephroureter ostomy catheter exchange. History: Ureteral obstruction Modality: fluoroscopy. Sedation: None Stave Cutting Supervisor: Gerald Baeza MD. Host/Hostess Ground: None. Approach: Lashonda Oakes (resident) Estimated blood [...] removed over wire and a new 12 Macedonian nephrostomy catheter was advanced over wire with [...] catheter was removed and a new 8.5 Macedonian by 24 cm nephroureterostomy catheter was advanced [...] left nephroureterostomy catheter exchange. Signed: Gerald Baeza Verified Date/Time: 08/19/2018 14:10:12 Reading Location: [place] [address] Angio Body Reading Room /[id number] 12:58:00 Test Item Value Reference Range Interpretation Comments PROTIME (BEAKER) (test code = 13.3 seconds 11.7-14.7 759) INR (BEAKER) (test code = 370) 1.0 <=5.9 PARTIAL THROMBOPLASTIN TIME 29.4 seconds 22.5-36.0 (BEAKER) (test code = 760) RECOMMENDED COUMADIN/WARFARIN INR THERAPY RANGESSTANDARD DOSE: 2.0 - 3.0 Includes: PROPHYLAXIS forvenous thrombosis, systemic embolization; TREATMENT for venous thrombosis and/or pulmonary embolus.HIGH RISK: Target INR is 2.5-3.5 for patients with mechanical heart valves.BASIC METABOLIC [id number] 12:19:00 Test Item Value Reference Range Interpretation Comments SODIUM (BEAKER) 138 meq/L 136-145 (test code = 381) POTASSIUM (BEAKER) 4.2 meq/L 3.5-5.1 (test code = 379) CHLORIDE (BEAKER) 101 meq/L 98-107 (test code = 382) CO2 (BEAKER) (test 25 meq/L 22-29 code = 355) BLOOD UREA NITROGEN 36 mg/dL 7-21 H (BEAKER) (test code = 354) CREATININE (BEAKER) 1.20 mg/dL 0.57-1.25 (test code = 358) GLUCOSE RANDOM 60 mg/dL 70-105 L (BEAKER) (test code = 652) CALCIUM (BEAKER) 9.3 mg/dL 8.4-10.2 (test code = 697) EGFR (BEAKER) (test 44 mL/min/1.73 ESTIMA AGUSTÍN GFR IS code = 1092) sq m NOT ACCURATE CREATININE CLEARANCE IN PREDICTING GLOMERULAR FILTRATION RATE . ESTIMATED GFR I S NOT APPLICABLE FOR DIALYSIS PATIEN TS. PT/[id number] 11:43:00 Test Item Value Reference Range Interpretation Comments PROTIME (BEAKER) (test code = 13.1 seconds 11.7-14.7 759) INR (BEAKER) (test code = 370) 1.0 <=5.9 PARTIAL THROMBOPLASTIN TIME 30.4 seconds 22.5-36.0 (BEAKER) (test code = 760) RECOMMENDED COUMADIN/WARFARIN INR THERAPY RANGESSTANDARD DOSE: 2.0 - 3.0 Includes: PROPHYLAXIS forvenous thrombosis, systemic embolization; TREATMENT for venous thrombosis and/or pulmonary embolus.HIGH RISK: Target INR is 2.5-3.5 for patients with mechanical heart valves.CBC W/PLT COUNT & AUTO DIFFERENTIAL 2018-05-07 11:03:00 Test Item Value Reference Range Interpretation Comments WHITE BLOOD CELL COUNT (BEAKER) 8.0 K/ L 3.5-10.5 (test code = 775) RED BLOOD CELL COUNT (BEAKER) 3.39 M/ L 3.93-5.22 L (test code = 761) HEMOGLOBIN (BEAKER) (test code = 10.8 GM/DL 11.2-15.7 L 410) HEMATOCRIT (BEAKER) (test code = 36.3 % 34.1-44.9 411) MEAN CORPUSCULAR VOLUME (BEAKER) 107.1 fL 79.4-94.8 H (test code = 753) MEAN CORPUSCULAR HEMOGLOBIN 31.9 pg 25.6-32.2 (BEAKER) (test code = 751) MEAN CORPUSCULAR HEMOGLOBIN CONC 29.8 GM/DL 32.2-35.5 L (BEAKER) (test code = 752) RED CELL DISTRIBUTION WIDTH 15.4 % 11.7-14.4 H (BEAKER) (test code = 412) PLATELET COUNT (BEAKER) (test 237 K/CU MM 150-450 code = 756) MEAN PLATELET VOLUME (BEAKER) 11.2 fL 9.4-12.3 (test code = 754) NUCLEATED RED BLOOD CELLS 0 /100 WBC 0-0 (BEAKER) (test code = 413) NEUTROPHILS RELATIVE PERCENT 70 % (BEAKER) (test code = 429) LYMPHOCYTES RELATIVE PERCENT 18 % (BEAKER) (test code = 430) MONOCYTES RELATIVE PERCENT 11 % (BEAKER) (test code = 431) EOSINOPHILS RELATIVE PERCENT 1 % (BEAKER) (test code = 432) BASOPHILS RELATIVE PERCENT 0 % (BEAKER) (test code = 437) NEUTROPHILS ABSOLUTE COUNT 5.56 K/ L 1.56-6.13 (BEAKER) (test code = 670) LYMPHOCYTES ABSOLUTE COUNT 1.45 K/ L 1.18-3.74 (BEAKER) (test code = 414) MONOCYTES ABSOLUTE COUNT (BEAKER) 0.85 K/ L 0.24-0.36 H (test code = 415) EOSINOPHILS ABSOLUTE COUNT 0.06 K/ L 0.04-0.36 (BEAKER) (test code = 416) BASOPHILS ABSOLUTE COUNT (BEAKER) 0.03 K/ L 0.01-0.08 (test code = 417) IMMATURE GRANULOCYTES-RELATIVE 0 % 0-1 PERCENT (BEAKER) (test code = 2801) CLAU MULLINS/ FLUORO NEPH, TUBE [id number] 19:42:00FINAL REPORT Fluoroscopic guided bilateral nephrostomy tube exchange, 05/06/2018. Clinical History: Ureteral obstruction, clogged right PCN. Modality: Fluoroscopy. Stave Cutting Supervisor: Jenny. Host/Hostess Ground: Biju. Sedation: None. Estimated Blood Loss: Less [...] not prepped, and hand hygiene, mask, head cov ering, and sterile gown for performing radiologist and scrub technologist. Local anesthesia was achieved with 1% lidocaine. Contrast was injected through the left nephroureterostomy catheter. A guidewire was advanced through the catheter and curled within the bladder. The old catheter was removed and a new 8 Macedonian 24 cm nephroureterostomy catheter was advanced over the wire into the bladder. Pigtail was locked. Contrast was injected into the right PCN. A Glidewire was advanced through the catheter and curled within the right renal pelvis. The old catheter was removed and a new 12 Macedonian pigtail catheter was placed into the right [...] catheter upsizing. Signed: Tray Alvarado MDReport Verified Date/Time: 05/06/2018 19:42:30 Reading Location: [facility] P048 Angio Body Reading Room URINE [id number] 12:31:00 Test Item Value Reference Range Interpretation Comments CULTURE (BEAKER) (test >100,000 col/mL skin code = 1095) thomas ANG, NEPHROSTOMY TUBE CHANGE, [id number] 17:42:00Reason for exam:->Tube not drainingFINAL REPORT Right nephrostomy catheter exchange. History: Malfunction right nephrostomy catheter Modality: Fluoroscopy Sedation:None Stave Cutting Supervisor: Gerald Baeza MD. Host/Hostess Ground: None. Approach: Right flank Estimated blood loss: [...] was removed over wire. A new 10.2 Macedonian nephrostomy catheter was advanced over wire with pigtail formed within the right renal pelvis. Contrast injection confirmed positioning. The catheter was fixed to the skin withsilk suture. A sterile dressing was applied. The patient tolerated the procedure well without immediate application. Impression: Successful right percutaneous nephrostomy catheter exchange. Signed: Gerald Baeza MDReport Verified Date/Time: 04/09/2018 17:42:07 Reading Location: [place] [address] Angio Body Reading Room URINALYSIS W/ [id number] 14:48:00 Test Item Value Reference Range Interpretation Comments COLOR (BEAKER) (test code = 470) Yellow CLARITY (BEAKER) (test code = Hazy 469) SPECIFIC GRAVITY UA (BEAKER) 1.013 1.001-1.035 (test code = 468) PH UA (BEAKER) (test code = 467) 8.5 5.0-8.0 H PROTEIN UA (BEAKER) (test code = 300 mg/dL Negative A 464) GLUCOSE UA (BEAKER) (test code = Negative Negative 365) KETONES UA (BEAKER) (test code = Negative Negative 371) BILIRUBIN UA (BEAKER) (test code Negative Negative = 462) BLOOD UA (BEAKER) (test code = Trace Negative A 461) NITRITE UA (BEAKER) (test code = Negative Negative 465) LEUKOCYTE ESTERASE UA (BEAKER) Large Negative A (test code = 466) UROBILINOGEN UA (BEAKER) (test 0.2 mg/dL 0.2-1.0 code = 463) RBC UA (BEAKER) (test code = 23 /HPF 519) WBC UA (BEAKER) (test code = 0 /HPF 520) MUCUS (BEAKER) (test code = Occasional 1574) TRIPLE PHOSPHATE CRYSTALS Occasional (BEAKER) (test code = 1582) SOURCE(BEAKER) (test code = Urine, Ballard 6889) BASIC METABOLIC [id number] 14:16:00 Test Item Value Reference Range Interpretation Comments SODIUM (BEAKER) 138 meq/L 136-145 (test code = 381) POTASSIUM (BEAKER) 3.8 meq/L 3.5-5.1 (test code = 379) CHLORIDE (BEAKER) 104 meq/L 98-107 (test code = 382) CO2 (BEAKER) (test 23 meq/L 22-29 code = 355) BLOOD UREA NITROGEN 30 mg/dL 7-21 H (BEAKER) (test code = 354) CREATININE (BEAKER) 1.00 mg/dL 0.57-1.25 (test code = 358) GLUCOSE RANDOM 89 mg/dL 70-105 (BEAKER) (test code = 652) CALCIUM (BEAKER) 9.6 mg/dL 8.4-10.2 (test code = 697) EGFR (BEAKER) (test 54 mL/min/1.73 ESTIMA AGUSTÍN GFR IS code = 1092) sq m NOT ACCURATE CREATININE CLEARANCE IN PREDICTING GLOMERULAR FILTRATION RATE . ESTIMATED GFR I S NOT APPLICABLE FOR DIALYSIS PATIEN TS. [id number] 14:06:00 Test Item Value Reference Range Interpretation Comments PROTIME (BEAKER) (test code = 13.8 seconds 11.7-14.7 759) INR (BEAKER) (test code = 370) 1.1 <=5.9 PARTIAL THROMBOPLASTIN TIME 30.3 seconds 22.5-36.0 (BEAKER) (test code = 760) RECOMMENDED COUMADIN/WARFARIN INR THERAPY RANGESSTANDARD DOSE: 2.0 - 3.0 Includes: PROPHYLAXIS forvenous thrombosis, systemic embolization; TREATMENT for venous thrombosis and/or pulmonary embolus.HIGH RISK: Target INR is 2.5-3.5 for patients with mechanical heart valves.CBC W/PLT COUNT & AUTO DIFFERENTIAL 2018-04-09 13:53:00 Test Item Value Reference Range Interpretation Comments WHITE BLOOD CELL COUNT (BEAKER) 7.1 K/ L 3.5-10.5 (test code = 775) RED BLOOD CELL COUNT (BEAKER) 3.32 M/ L 3.93-5.22 L (test code = 761) HEMOGLOBIN (BEAKER) (test code = 10.5 GM/DL 11.2-15.7 L 410) HEMATOCRIT (BEAKER) (test code = 32.0 % 34.1-44.9 L 411) MEAN CORPUSCULAR VOLUME (BEAKER) 96.4 fL 79.4-94.8 H (test code = 753) MEAN CORPUSCULAR HEMOGLOBIN 31.6 pg 25.6-32.2 (BEAKER) (test code = 751) MEAN CORPUSCULAR HEMOGLOBIN CONC 32.8 GM/DL 32.2-35.5 (BEAKER) (test code = 752) RED CELL DISTRIBUTION WIDTH 14.6 % 11.7-14.4 H (BEAKER) (test code = 412) PLATELET COUNT (BEAKER) (test 228 K/CU MM 150-450 code = 756) MEAN PLATELET VOLUME (BEAKER) 10.8 fL 9.4-12.3 (test code = 754) NUCLEATED RED BLOOD CELLS 0 /100 WBC 0-0 (BEAKER) (test code = 413) NEUTROPHILS RELATIVE PERCENT 68 % (BEAKER) (test code = 429) LYMPHOCYTES RELATIVE PERCENT 18 % (BEAKER) (test code = 430) MONOCYTES RELATIVE PERCENT 13 % (BEAKER) (test code = 431) EOSINOPHILS RELATIVE PERCENT 1 % (BEAKER) (test code = 432) BASOPHILS RELATIVE PERCENT 0 % (BEAKER) (test code = 437) NEUTROPHILS ABSOLUTE COUNT 4.78 K/ L 1.56-6.13 (BEAKER) (test code = 670) LYMPHOCYTES ABSOLUTE COUNT 1.24 K/ L 1.18-3.74 (BEAKER) (test code = 414) MONOCYTES ABSOLUTE COUNT (BEAKER) 0.91 K/ L 0.24-0.36 H (test code = 415) EOSINOPHILS ABSOLUTE COUNT 0.07 K/ L 0.04-0.36 (BEAKER) (test code = 416) BASOPHILS ABSOLUTE COUNT (BEAKER) 0.02 K/ L 0.01-0.08 (test code = 417) IMMATURE GRANULOCYTES-RELATIVE 0 % 0-1 PERCENT (BEAKER) (test code = 2801) ANG, NEPHROSTOMY TUBE CHANGE, [id number] 09:41:00Reason for exam:- >dysfunction nephrostomy tube on the rightFINAL REPORT History: [...] removed over a wire. A new 10.2 Macedonian pigtail nephrostomy catheter was placed over the [...] Leslie العراقي Verified Date/Time: 03/15/2018 09:41:31 Reading Location:[facility] B1 P048 Angio Body Reading Room , NEPHROSTOMY TUBE CHANGE, LEFT 2018-02-24 16:05:00Reason for Exam:->n13.30FINAL REPORT Left percutaneous nephroureterostomy and right percutaneous nephrostomy catheter exchange. History: 77-year-old female with history of ureteral strictures presents for routine catheter exchange. Modality: FluoroscopySedation: None Stave Cutting Supervisor: Gerald Baeza MD. Host/Hostess Ground: None. Approach: Bilateral flanks Estimated blood loss: [...] for performing radiologist and scrub technologist. A pizzamaker image images was obtained. Contrast was injected through the indwelling left percutaneous nephroureterostomy catheter confirming position. 2% lidocaine was used for local anesthesia. The indwelling catheter was cut and a 0.035 Bentson wire was advanced and coiled within the urinary bladder. The existing catheter was removed over wire and a new 8.5 Macedonian by 22 cm nephroureterostomy was advanced over [...] indwelling catheter was cut and a 0.035 Bents on wire was advanced and coiled within the right renal pelvis. The existing catheter was removed thewire and a new 10.2 Macedonian pigtail catheter was advanced over wire with pigtail formed within the right renal pelvis. The catheter was fixed to the skin with silk suture and dressing was applied. The patient tolerated the procedure well without immediate complication. Impression: Successful fluoroscopic-guided left percutaneous nephroureterostomy and right percutaneous nephrostomy catheter exchange. Signed: Gerald Baeza MDReport Verified Date/Time: 02/24/2018 16:05:12 Reading Location: [place] [address] Angio Body Reading Room , NEPHROSTOMY TUBE CHANGE, [id number] 16:05:00Reason for Exam:->n13.30FINAL REPORT Left percutaneous nephroureterostomy and right percutaneous nephrostomy catheter exchange. History: 77-year-old female with history of ureteral strictures presents for routine catheter exchange. Modality: FluoroscopySedation: None Stave Cutting Supervisor: Gerald Baeza MD. Host/Hostess Ground: None. Approach: Bilateral flanks Estimated blood loss: [...] for performing radiologist and scrub technologist. A pizzamaker image images was obtained. Contrast was injected through the indwelling left percutaneous nephroureterostomy catheter confirming position. 2% lidocaine was used for local anesthesia. The indwelling catheter was cut and a 0.035 Bentson wire was advanced and coiled within the urinary bladder. The existing catheter was removed over wire and a new 8.5 Macedonian by 22 cm nephroureterostomy was advanced over [...] was removed thewire and a new 10.2 Macedonian pigtail catheter was advanced over wire with pigtail formed within the right renal pelvis. The catheter was fixed to the skin with silk suture and dressing was applied. The patient tolerated the procedure well without immediate complication. Impression: Successful fluoroscopic-guided left percutaneous nephroureterostomy and right percutaneous nephrostomy catheter exchange. Signed: Gerald Baeza MDReport Verified Date/Time: 02/24/2018 16:05:12 Reading Location: [place] [address] Angio Body Reading Room ANG, NEPHROSTOMY TUBE CHANGE, RIGHT 2017-12-29 17:02:00Reason for exam:->ABDOMINAL PAIN, flank pain, blockage FINAL REPORT History: Malfunctioning right nephrostomy tube, renal [...] over a Bentson wire. A new 10.2 Macedonian pigtail nephrostomy catheter was placed over the [...] MDReport Verified Date/Time: 12/29/2017 17:02:02 Reading Location: [facility] P048 Angio Body Reading Room URINE [id number] 12:00:00 Test Item Value Reference Range Interpretation Comments CULTURE (BEAKER) (test >100,000 col/mL skin code = 1095) thomas URINALYSIS W/ [id number] 10:15:00 Test Item Value Reference Range Interpretation Comments COLOR (BEAKER) (test code Hamler = 470) CLARITY (BEAKER) (test Cloudy code = 469) SPECIFIC GRAVITY UA 1.021 1.001-1.035 (BEAKER) (test code = 468) PH UA (BEAKER) (test code 8.5 5.0-8.0 H = 467) PROTEIN UA (BEAKER) (test >600 mg/dL Negative A code = 464) GLUCOSE UA (BEAKER) (test Negative Negative code = 365) KETONES UA (BEAKER) (test Negative Negative code = 371) BILIRUBIN UA (BEAKER) Positive Negative A (test code = 462) BLOOD UA (BEAKER) (test Negative Negative code = 461) NITRITE UA (BEAKER) (test Positive Negative A code = 465) LEUKOCYTE ESTERASE UA Small Negative A (BEAKER) (test code = 466) UROBILINOGEN UA (BEAKER) 2.0 mg/dL 0.2-1.0 H (test code = 463) RBC UA (BEAKER) (test code 0 /HPF = 519) WBC UA (BEAKER) (test code 94 /HPF = 520) MUCUS (BEAKER) (test code Occasional = 1574) TRIPLE PHOSPHATE CRYSTALS Moderate (BEAKER) (test code = 1582) SOURCE(BEAKER) (test code Urine, Nephrostomy = 0936) BASIC METABOLIC [id number] 10:04:00 Test Item Value Reference Range Interpretation Comments SODIUM (BEAKER) 137 meq/L 136-145 (test code = 381) POTASSIUM (BEAKER) 5.0 meq/L 3.5-5.1 (test code = 379) CHLORIDE (BEAKER) 104 meq/L 98-107 (test code = 382) CO2 (BEAKER) (test 25 meq/L 22-29 code = 355) BLOOD UREA NITROGEN 39 mg/dL 7-21 H (BEAKER) (test code = 354) CREATININE (BEAKER) 1.13 mg/dL 0.57-1.25 (test code = 358) GLUCOSE RANDOM 127 mg/dL 70-105 H (BEAKER) (test code = 652) CALCIUM (BEAKER) 9.0 mg/dL 8.4-10.2 (test code = 697) EGFR (BEAKER) (test 47 mL/min/1.73 ESTIMA AGUSTNÍ GFR IS code = 1092) sq m NOT ACCURATE CREATININE CLEARANCE IN PREDICTING GLOMERULAR FILTRATION RATE . ESTIMATED GFR I S NOT APPLICABLE FOR DIALYSIS PATIEN TS. [id number] 09:53:00 Test Item Value Reference Range Interpretation Comments PROTIME (BEAKER) (test code = 13.0 seconds 11.7-14.7 759) INR (BEAKER) (test code = 370) 1.0 <=5.9 PARTIAL THROMBOPLASTIN TIME 28.9 seconds 22.5-36.0 (BEAKER) (test code = 760) RECOMMENDED COUMADIN/WARFARIN INR THERAPY RANGESSTANDARD DOSE: 2.0 - 3.0 Includes: PROPHYLAXIS forvenous thrombosis, systemic embolization; TREATMENT for venous thrombosis and/or pulmonary embolus.HIGH RISK: Target INR is 2.5-3.5 for patients with mechanical heart valves.CBC W/PLT COUNT & AUTO DIFFERENTIAL 2017-12-28 09:52:00 Test Item Value Reference Range Interpretation Comments WHITE BLOOD CELL COUNT (BEAKER) 10.4 K/ L 3.5-10.5 (test code = 775) RED BLOOD CELL COUNT (BEAKER) 3.48 M/ L 3.93-5.22 L (test code = 761) HEMOGLOBIN (BEAKER) (test code = 10.8 GM/DL 11.2-15.7 L 410) HEMATOCRIT (BEAKER) (test code = 34.4 % 34.1-44.9 411) MEAN CORPUSCULAR VOLUME (BEAKER) 98.9 fL 79.4-94.8 H (test code = 753) MEAN CORPUSCULAR HEMOGLOBIN 31.0 pg 25.6-32.2 (BEAKER) (test code = 751) MEAN CORPUSCULAR HEMOGLOBIN CONC 31.4 GM/DL 32.2-35.5 L (BEAKER) (test code = 752) RED CELL DISTRIBUTION WIDTH 14.0 % 11.7-14.4 (BEAKER) (test code = 412) PLATELET COUNT (BEAKER) (test 255 K/CU MM 150-450 code = 756) MEAN PLATELET VOLUME (BEAKER) 10.6 fL 9.4-12.3 (test code = 754) NUCLEATED RED BLOOD CELLS 0 /100 WBC 0-0 (BEAKER) (test code = 413) NEUTROPHILS RELATIVE PERCENT 82 % (BEAKER) (test code = 429) LYMPHOCYTES RELATIVE PERCENT 9 % (BEAKER) (test code = 430) MONOCYTES RELATIVE PERCENT 8 % (BEAKER) (test code = 431) EOSINOPHILS RELATIVE PERCENT 1 % (BEAKER) (test code = 432) BASOPHILS RELATIVE PERCENT 0 % (BEAKER) (test code = 437) NEUTROPHILS ABSOLUTE COUNT 8.58 K/ L 1.56-6.13 H (BEAKER) (test code = 670) LYMPHOCYTES ABSOLUTE COUNT 0.95 K/ L 1.18-3.74 L (BEAKER) (test code = 414) MONOCYTES ABSOLUTE COUNT (BEAKER) 0.79 K/ L 0.24-0.36 H (test code = 415) EOSINOPHILS ABSOLUTE COUNT 0.05 K/ L 0.04-0.36 (BEAKER) (test code = 416) BASOPHILS ABSOLUTE COUNT (BEAKER) 0.02 K/ L 0.01-0.08 (test code = 417) IMMATURE GRANULOCYTES-RELATIVE 0 % 0-1 PERCENT (BEAKER) (test code = 2801) URINE [id number] 09:49:00 Test Item Value Reference Range Interpretation Comments CULTURE (BEAKER) (test code = 1095) Amikacin (test code = Susceptible 0-16 , S 1) Resistant <0 or >16 Aztreonam (test code = Susceptible 0-8 , R 32) Resistant <0 or >8 Cefepime (test code = Susceptible 0-8 , R 51) Resistant <0 or >8 Ceftazidime (test code Susceptible 0-8 , R = 27) Resistant <0 or >8 Ciprofloxacin (test Susceptible 0-1 , R code = 7) Resistant <0 or >1 Doripenem (test code = Susceptible 0-2 , S 100) Resistant <0 or >2 Gentamicin (test code = Susceptible 0-4 , S 18) Resistant <0 or >4 Imipenem (test code = Susceptible 0-2 , S 19) Resistant <0 or >2 Levofloxacin (test code Susceptible 0-2 , R = 22) Resistant <0 or >2 Meropenem (test code = Susceptible 0-2 , R 34) Resistant <0 or >2 Piperacillin (test code Susceptible 0-16 , R = 24) Resistant <0 or >16 Piperacillin + Susceptible 0-16 , R Tazobactam (test code = Resistant <0 or >16 29) Tobramycin (test code = Susceptible 0-4 , S 25) Resistant <0 or >4 CULTURE (BEAKER) (test A 80-89 ,000 col/mL code = 1095) Pseudomonas aeruginosa >100,000 col/mL skin floraANG, NEPHROSTOMY TUBE CHANGE, [id number] 09:10:00Reason for exam:->ABDOMINAL PAINFINAL REPORT Fluoroscopic guided bilateral nephrostomy tube exchange ClinicalHistory: Abdominal pain, bilateral percutaneous nephrostomy catheter. Modality: Sonography and fluoroscopy Stave Cutting Supervisor: Star Brown MD. Host/Hostess Ground: None.. SEDATION: None. Estimated Blood Loss: Less [...] was achieved with 1% lidocaine. The existing left-sided nephroureteral catheter was injected demonstrating adequate positioning. The catheter was cut and a wire was advanced through the catheter into the bladder. A new 8.5 Macedonian by 24 cm nephroureteral catheter was placed. [...] catheter into the bladder. A new 10 Macedonian pigtail catheter was placed. The wire was [...] Impression: 1. Uncomplicated exchange of left 8.5 Macedonian by 24 cm nephroureteral catheter. 2. Uncomplicated exchange of right 10 Macedonian percutaneous nephrostomy catheter. Signed: Star Brown MDReportVerified Date/Time: 12/14/2017 09:10:40 Reading Location: [address] Body Reading Room , NEPHROSTOMY TUBE CHANGE, [id number] 09:10:00Reason for exam:- >ABDOMINAL PAINFINAL REPORT Fluoroscopic guided bilateral nephrostomy tube exchange ClinicalHistory: Abdominal pain, bilateral percutaneous nephrostomy catheter. Modality: Sonography and fluoroscopy Stave Cutting Supervisor: Star Brown MD. Host/Hostess Ground: None.. SEDATION: None. Estimated Blood Loss: Less [...] was achieved with 1% lidocaine. The existing left-sided nephroureteral catheter was injected demonstrating adequate positioning. The catheter was cut and a wire was advanced through the catheter into the bladder. A new 8.5 Macedonian by 24 cm nephroureteral catheter was placed. The wire was then removed, and the pigtail o f the catheter was locked. Contrast injection confirmed positioning. The catheter was then secured onto the skin with 2-0 Prolene. Catheter was connected to bag drainage. Local anesthesia was achieved with 1% lidocaine. The existing right-sided percutaneous nephrostomy catheter was injected demonstrating adequate positioning. The catheter was cut and a wire was advanced through the catheter into the bladder. A new 10 Macedonian pigtail catheter was placed. The wire was [...] Impression: 1. Uncomplicated exchange of left 8.5 Macedonian by 24 cm nephroureteral catheter. 2. Uncomplicated exchange of right 10 Macedonian percutaneous nephrostomy catheter. Signed: Star Brown MDReportVerified Date/Time: 12/14/2017 09:10:40 Reading Location: [facility] [id number] CT Body Reading Room CBC W/PLT COUNT & AUTO [id number] 15:37:00 Test Item Value Reference Range Interpretation Comments WHITE BLOOD CELL COUNT (BEAKER) 11.1 K/ L 3.5-10.5 H (test code = 775) RED BLOOD CELL COUNT (BEAKER) 3.52 M/ L 3.93-5.22 L (test code = 761) HEMOGLOBIN (BEAKER) (test code = 11.2 GM/DL 11.2-15.7 410) HEMATOCRIT (BEAKER) (test code = 35.3 % 34.1-44.9 411) MEAN CORPUSCULAR VOLUME (BEAKER) 100.3 fL 79.4-94.8 H (test code = 753) MEAN CORPUSCULAR HEMOGLOBIN 31.8 pg 25.6-32.2 (BEAKER) (test code = 751) MEAN CORPUSCULAR HEMOGLOBIN CONC 31.7 GM/DL 32.2-35.5 L (BEAKER) (test code = 752) RED CELL DISTRIBUTION WIDTH 13.2 % 11.7-14.4 (BEAKER) (test code = 412) PLATELET COUNT (BEAKER) (test 353 K/CU MM 150-450 code = 756) MEAN PLATELET VOLUME (BEAKER) 10.6 fL 9.4-12.3 (test code = 754) NUCLEATED RED BLOOD CELLS 0 /100 WBC 0-0 (BEAKER) (test code = 413) NEUTROPHILS RELATIVE PERCENT 83 % (BEAKER) (test code = 429) LYMPHOCYTES RELATIVE PERCENT 8 % (BEAKER) (test code = 430) MONOCYTES RELATIVE PERCENT 8 % (BEAKER) (test code = 431) EOSINOPHILS RELATIVE PERCENT 1 % (BEAKER) (test code = 432) BASOPHILS RELATIVE PERCENT 0 % (BEAKER) (test code = 437) NEUTROPHILS ABSOLUTE COUNT 9.20 K/ L 1.56-6.13 H (BEAKER) (test code = 670) LYMPHOCYTES ABSOLUTE COUNT 0.87 K/ L 1.18-3.74 L (BEAKER) (test code = 414) MONOCYTES ABSOLUTE COUNT (BEAKER) 0.91 K/ L 0.24-0.36 H (test code = 415) EOSINOPHILS ABSOLUTE COUNT 0.07 K/ L 0.04-0.36 (BEAKER) (test code = 416) BASOPHILS ABSOLUTE COUNT (BEAKER) 0.03 K/ L 0.01-0.08 (test code = 417) IMMATURE GRANULOCYTES-RELATIVE 1 % 0-1 PERCENT (BEAKER) (test code = 2801) BASIC METABOLIC [id number] 15:27:00 Test Item Value Reference Range Interpretation Comments SODIUM (BEAKER) 132 meq/L 136-145 L (test code = 381) POTASSIUM (BEAKER) 5.1 meq/L 3.5-5.1 (test code = 379) CHLORIDE (BEAKER) 99 meq/L 98-107 (test code = 382) CO2 (BEAKER) (test 24 meq/L 22-29 code = 355) BLOOD UREA NITROGEN 36 mg/dL 7-21 H (BEAKER) (test code = 354) CREATININE (BEAKER) 1.25 mg/dL 0.57-1.25 (test code = 358) GLUCOSE RANDOM 117 mg/dL 70-105 H (BEAKER) (test code = 652) CALCIUM (BEAKER) 9.4 mg/dL 8.4-10.2 (test code = 697) EGFR (BEAKER) (test 42 mL/min/1.73 ESTIMA AGUSTÍN GFR IS code = 1092) sq m NOT ACCURATE CREATININE CLEARANCE IN PREDICTING GLOMERULAR FILTRATION RATE . ESTIMATED GFR I S NOT APPLICABLE FOR DIALYSIS PATIEN TS. URINALYSIS W/ [id number] 15:22:00 Test Item Value Reference Range Interpretation Comments COLOR (BEAKER) (test code Light Yellow = 470) CLARITY (BEAKER) (test Hazy code = 469) SPECIFIC GRAVITY UA 1.007 1.001-1.035 (BEAKER) (test code = 468) PH UA (BEAKER) (test code 5.5 5.0-8.0 = 467) PROTEIN UA (BEAKER) (test 50 mg/dL Negative A code = 464) GLUCOSE UA (BEAKER) (test Negative Negative code = 365) KETONES UA (BEAKER) (test Negative Negative code = 371) BILIRUBIN UA (BEAKER) Negative Negative (test code = 462) BLOOD UA (BEAKER) (test Small Negative A code = 461) NITRITE UA (BEAKER) (test Positive Negative A code = 465) LEUKOCYTE ESTERASE UA Large Negative A (BEAKER) (test code = 466) UROBILINOGEN UA (BEAKER) 0.2 mg/dL 0.2-1.0 (test code = 463) RBC UA (BEAKER) (test code 22 /HPF = 519) WBC UA (BEAKER) (test code 24 /HPF = 520) MUCUS (BEAKER) (test code Rare = 1574) SQUAMOUS EPITHELIAL < /HPF (BEAKER) (test code = 516) HYALINE CASTS (BEAKER) 2 /LPF (test code = 514) SOURCE(BEAKER) (test code Urine, Nephrostomy = 2795) ANG, NEPHROSTOMY TUBE CHANGE, [id number] 18:37:00Reason for Exam:->N13.30FINAL REPORT Procedure: Replacement of bilateral nephrostomy catheters, [...] guidewire and replaced with a fresh 8.5 Macedonian device with its tip in the renal pelvis. Approximately 80 cc of urine were removed. The left nephroureteral stent was removed over guidewire and a fresh 8.5 Macedonian by 24 cm nephroureteral stent placed with itstip in the bladder. Contrast was injected into each of the nephrostomy catheters confirming satisfactory positioning. CONCLUSION: Replacement of bilateral nephrostomy catheters. Signed: Tha Cheung MDReport Verified Date/Time: 11/19/2017 18:37:20 Reading Location: [place] [id number] Angio Body Reading Room ANG, NEPHROSTOMY TUBE CHANGE, [id number] 15:09:00Reason for exam:->FLANK PAIN FINAL REPORT Exam: Right nephrostomy tube exchange Clinical History: Right nephrostomy tube occlusion Consent: Benefits and risks were explained to the patient who gave consent to the procedure. Sedation: The procedure was performed with conscious sedation. [...] tube was exchanged for a new 8.5 Macedonian nephrostomy tube with the tip advanced to the renal pelvis. The position was confirmed by contrast inject ion. There is severe hydronephrosis and hydroureter. The catheter was secured using 2-0 silk and left to gravity drainage. Hemostasis was achieved. The patient tolerated the procedure well without any adverse reactions. She left the department in stable condition. Complication: None immediate Impression: 1. Right nephrostomy tube exchange as described. Signed: Manju Grove MDReport Verified Date/Time: 10/31/2017 15:09:40 Reading Location: [facility] P048 Angio Body Reading Room RAD, ABDOMEN, 2 OR MORE [id number] 14:41:00Reason for exam:->FLANK PAINFINAL REPORT Four views of the abdomen. IMPRESSION: None. IMPRESSION: Right nephrostomy and left nephroureterostomy catheters in position. Postsurgical changes are also seen in the lower lumbar spine and right hip. The bowel gas pattern is nonspecific. There are vascular calcifications. The osseous structures demonstrate degenerative change. No definite free intraperitoneal air. Signed: Haresh Scruggs MDReport Verified Date/Time: 10/31/2017 14:41:15 Reading Location: [facility] [id number] Ortho Consult Reading Room BASIC METABOLIC [id number] 12:03:00 Test Item Value Reference Range Interpretation Comments SODIUM (BEAKER) 139 meq/L 136-145 (test code = 381) POTASSIUM (BEAKER) 4.8 meq/L 3.5-5.1 (test code = 379) CHLORIDE (BEAKER) 106 meq/L 98-107 (test code = 382) CO2 (BEAKER) (test 22 meq/L 22-29 code = 355) BLOOD UREA NITROGEN 34 mg/dL 7-21 H (BEAKER) (test code = 354) CREATININE (BEAKER) 1.03 mg/dL 0.57-1.25 (test code = 358) GLUCOSE RANDOM 163 mg/dL 70-105 H (BEAKER) (test code = 652) CALCIUM (BEAKER) 9.5 mg/dL 8.4-10.2 (test code = 697) EGFR (BEAKER) (test 52 mL/min/1.73 ESTIMA AGUSTÍN GFR IS code = 1092) sq m NOT ACCURATE CREATININE CLEARANCE IN PREDICTING GLOMERULAR FILTRATION RATE . ESTIMATED GFR I S NOT APPLICABLE FOR DIALYSIS PATIEN TS. CBC W/PLT COUNT & AUTO [id number] 11:30:00 Test Item Value Reference Range Interpretation Comments WHITE BLOOD CELL COUNT (BEAKER) 9.1 K/ L 3.5-10.5 (test code = 775) RED BLOOD CELL COUNT (BEAKER) 3.56 M/ L 3.93-5.22 L (test code = 761) HEMOGLOBIN (BEAKER) (test code = 11.3 GM/DL 11.2-15.7 410) HEMATOCRIT (BEAKER) (test code = 35.6 % 34.1-44.9 411) MEAN CORPUSCULAR VOLUME (BEAKER) 100.0 fL 79.4-94.8 H (test code = 753) MEAN CORPUSCULAR HEMOGLOBIN 31.7 pg 25.6-32.2 (BEAKER) (test code = 751) MEAN CORPUSCULAR HEMOGLOBIN CONC 31.7 GM/DL 32.2-35.5 L (BEAKER) (test code = 752) RED CELL DISTRIBUTION WIDTH 14.3 % 11.7-14.4 (BEAKER) (test code = 412) PLATELET COUNT (BEAKER) (test 323 K/CU MM 150-450 code = 756) MEAN PLATELET VOLUME (BEAKER) 10.1 fL 9.4-12.3 (test code = 754) NUCLEATED RED BLOOD CELLS 0 /100 WBC 0-0 (BEAKER) (test code = 413) NEUTROPHILS RELATIVE PERCENT 86 % (BEAKER) (test code = 429) LYMPHOCYTES RELATIVE PERCENT 9 % (BEAKER) (test code = 430) MONOCYTES RELATIVE PERCENT 5 % (BEAKER) (test code = 431) EOSINOPHILS RELATIVE PERCENT 0 % (BEAKER) (test code = 432) BASOPHILS RELATIVE PERCENT 0 % (BEAKER) (test code = 437) NEUTROPHILS ABSOLUTE COUNT 7.75 K/ L 1.56-6.13 H (BEAKER) (test code = 670) LYMPHOCYTES ABSOLUTE COUNT 0.78 K/ L 1.18-3.74 L (BEAKER) (test code = 414) MONOCYTES ABSOLUTE COUNT (BEAKER) 0.47 K/ L 0.24-0.36 H (test code = 415) EOSINOPHILS ABSOLUTE COUNT 0.00 K/ L 0.04-0.36 L (BEAKER) (test code = 416) BASOPHILS ABSOLUTE COUNT (BEAKER) 0.02 K/ L 0.01-0.08 (test code = 417) IMMATURE GRANULOCYTES-RELATIVE 0 % 0-1 PERCENT (BEAKER) (test code = 2801) [id number] 11:17:00 Test Item Value Reference Range Interpretation Comments PROTIME (BEAKER) (test code = 14.4 seconds 11.7-14.7 759) INR (BEAKER) (test code = 370) 1.1 <=5.9 PARTIAL THROMBOPLASTIN TIME 31.3 seconds 22.5-36.0 (BEAKER) (test code = 760) RECOMMENDED COUMADIN/WARFARIN INR THERAPY RANGESSTANDARD DOSE: 2.0 - 3.0 Includes: PROPHYLAXIS forvenous thrombosis, systemic embolization; TREATMENT for venous thrombosis and/or pulmonary embolus.HIGH RISK: Target INR is 2.5-3.5 for patients with mechanical heart valves.BLOOD [id number] 11:00:00 Test Item Value Reference Range Interpretation Comments CULTURE (BEAKER) (test No growth in 5 days code = 1095) BLOOD [id number] 11:00:00 Test Item Value Reference Range Interpretation Comments CULTURE (BEAKER) (test No growth in 5 days code = 1095) URINE [id number] 10:04:00 Test Item Value Reference Range Interpretation Comments CULTURE (BEAKER) (test code = See comment 1095) >100,000 col/mL enteric organisms of >3 types including Pseudomonas species. No further workupperformed. Multiple organisms suggestive of colonization or contamination. Repeat collection recommended.URINE CULTURE 2017-08-07 13:38:00 Test Item Value Reference Range Interpretation Comments CULTURE (BEAKER) (test >100,000 col/mL skin code = 1095) thomas POCT-GLUCOSE [id number] 12:45:00 Test Item Value Reference Range Interpretation Comments POC-GLUCOSE METER 120 mg/dL 70-110 H TESTED AT [facility] [address] (SnapMyAd) (test code = [place] 1538) [id number] POCT-GLUCOSE [id number] 07:39:00 Test Item Value Reference Range Interpretation Comments POC-GLUCOSE METER 80 mg/dL 70-110 TESTED AT [facility] [address] (BEAKER) (test code = [place] [address] 1538) CBC W/PLT COUNT & AUTO [id number] 06:22:00 Test Item Value Reference Range Interpretation Comments WHITE BLOOD CELL COUNT (BEAKER) 12.7 K/ L 3.5-10.5 H (test code = 775) RED BLOOD CELL COUNT (BEAKER) 3.13 M/ L 3.93-5.22 L (test code = 761) HEMOGLOBIN (BEAKER) (test code = 10.0 GM/DL 11.2-15.7 L 410) HEMATOCRIT (BEAKER) (test code = 31.2 % 34.1-44.9 L 411) MEAN CORPUSCULAR VOLUME (BEAKER) 99.7 fL 79.4-94.8 H (test code = 753) MEAN CORPUSCULAR HEMOGLOBIN 31.9 pg 25.6-32.2 (BEAKER) (test code = 751) MEAN CORPUSCULAR HEMOGLOBIN CONC 32.1 GM/DL 32.2-35.5 L (BEAKER) (test code = 752) RED CELL DISTRIBUTION WIDTH 14.4 % 11.7-14.4 (BEAKER) (test code = 412) PLATELET COUNT (BEAKER) (test 239 K/CU MM 150-450 code = 756) MEAN PLATELET VOLUME (BEAKER) 10.5 fL 9.4-12.3 (test code = 754) NUCLEATED RED BLOOD CELLS 0 /100 WBC 0-0 (BEAKER) (test code = 413) NEUTROPHILS RELATIVE PERCENT 81 % (BEAKER) (test code = 429) LYMPHOCYTES RELATIVE PERCENT 7 % (BEAKER) (test code = 430) MONOCYTES RELATIVE PERCENT 9 % (BEAKER) (test code = 431) EOSINOPHILS RELATIVE PERCENT 1 % (BEAKER) (test code = 432) BASOPHILS RELATIVE PERCENT 0 % (BEAKER) (test code = 437) NEUTROPHILS ABSOLUTE COUNT 10.34 K/ L 1.56-6.13 H (BEAKER) (test code = 670) LYMPHOCYTES ABSOLUTE COUNT 0.94 K/ L 1.18-3.74 L (BEAKER) (test code = 414) MONOCYTES ABSOLUTE COUNT (BEAKER) 1.18 K/ L 0.24-0.36 H (test code = 415) EOSINOPHILS ABSOLUTE COUNT 0.11 K/ L 0.04-0.36 (BEAKER) (test code = 416) BASOPHILS ABSOLUTE COUNT (BEAKER) 0.03 K/ L 0.01-0.08 (test code = 417) IMMATURE GRANULOCYTES-RELATIVE 1 % 0-1 PERCENT (BEAKER) (test code = 2801) [id number] 05:46:00 Test Item Value Reference Range Interpretation Comments MAGNESIUM (BEAKER) (test code = 1.4 mg/dL 1.6-2.6 L 627) BASIC METABOLIC [id number] 05:46:00 Test Item Value Reference Range Interpretation Comments SODIUM (BEAKER) 135 meq/L 136-145 L (test code = 381) POTASSIUM (BEAKER) 3.8 meq/L 3.5-5.1 (test code = 379) CHLORIDE (BEAKER) 104 meq/L 98-107 (test code = 382) CO2 (BEAKER) (test 24 meq/L 22-29 code = 355) BLOOD UREA NITROGEN 29 mg/dL 7-21 H (BEAKER) (test code = 354) CREATININE (BEAKER) 1.00 mg/dL 0.57-1.25 (test code = 358) GLUCOSE RANDOM 94 mg/dL 70-105 (BEAKER) (test code = 652) CALCIUM (BEAKER) 8.4 mg/dL 8.4-10.2 (test code = 697) EGFR (BEAKER) (test 54 mL/min/1.73 ESTIMA AGUSTÍN GFR IS code = 1092) sq m NOT ACCURATE CREATININE CLEARANCE IN PREDICTING GLOMERULAR FILTRATION RATE . ESTIMATED GFR I S NOT APPLICABLE FOR DIALYSIS PATIEN TS. POCT-GLUCOSE [id number] 21:07:00 Test Item Value Reference Range Interpretation Comments POC-GLUCOSE METER 170 mg/dL 70-110 H TESTED AT [facility] [address] (BEAKER) (test code = [place] 15[address]) [id number] ANG, NEPHROSTOMY TUBE CHANGE, [id number] 20:09:00FINAL REPORT Right nephrostomy catheter exchange. History: Malfunctioning right nephrostomy catheter Modality: Fluoroscopy Sedation: Moderate sedation was administered. 0.5 mg of Versed and 25 mcg of fentanyl IV was used for moderate sedation monitored under my direction. Total intra-service time of sedation was 30 minutes.The patient's vital signs were monitored throughout the procedure and recorded in the patient's medical record by the nurse. Stave Cutting Supervisor: Gerald Baeza MD. Host/Hostess Ground: MD Ulysses (Fellow) Approach: Indwelling right nephrostomy catheter Estimated blood [...] 2% lidocaine was used for local anesthesia. Pricer images were obtained demonstrating right n ephrostomy catheter retracted to a renal calyx. The indwelling tube was cut and a 0.035 wire was advanced into the right renal pelvis. The existing catheter was removed over wire and a new 8.5 Macedonian percutaneous nephrostomy catheter was advanced over wire with pigtail formed within the renal pelvis. There was immediate return of urine. Contrast injection confirmed position. The catheter was fixed tothe skin with silk suture. A sterile dressing was applied. The patient tolerated procedure well without immediate complication. IMPRESSION: Successful right percutaneous nephrostomy catheter exchange. Signed: Gerald Baeza MDReport Verified Date/Time: 08/06/2017 20:09:03 Reading Location: [place] [address] Angio Body Reading Room URINALYSIS W/ [id number] 19:55:00 Test Item Value Reference Range Interpretation Comments COLOR (BEAKER) (test code Brittaney = 470) CLARITY (BEAKER) (test Cloudy code = 469) SPECIFIC GRAVITY UA 1.016 1.001-1.035 (BEAKER) (test code = 468) PH UA (BEAKER) (test code 8.0 5.0-8.0 = 467) PROTEIN UA (BEAKER) (test 300 mg/dL Negative A code = 464) GLUCOSE UA (BEAKER) (test Negative Negative code = 365) KETONES UA (BEAKER) (test Negative Negative code = 371) BILIRUBIN UA (BEAKER) Negative Negative (test code = 462) BLOOD UA (BEAKER) (test Large Negative A code = 461) NITRITE UA (BEAKER) (test Negative Negative code = 465) LEUKOCYTE ESTERASE UA Large Negative A (BEAKER) (test code = 466) UROBILINOGEN UA (BEAKER) 0.2 mg/dL 0.2-1.0 (test code = 463) RBC UA (BEAKER) (test code > /HPF = 519) WBC UA (BEAKER) (test code > /HPF = 520) MUCUS (BEAKER) (test code Rare = 1574) SOURCE(BEAKER) (test code Urine, Nephrostomy = 2795) POCT-GLUCOSE [id number] 12:58:00 Test Item Value Reference Range Interpretation Comments POC-GLUCOSE METER 131 mg/dL 70-110 H TESTED AT [place] [address] ([facility] ([facility]38) [address] HEMOGLOBIN [id number] 09:30:00 Test Item Value Reference Range Interpretation Comments HEMOGLOBIN A1C (BEAKER) (test code = 5.7 % 4.3-6.1 368) POCT-GLUCOSE [id number] 07:08:00 Test Item Value Reference Range Interpretation Comments POC-GLUCOSE METER 137 mg/dL 70-110 H TESTED AT [place] [address] (BEAKER) (test code = AM[place] [facility] 1538) [id number] 04:00:00 Test Item Value Reference Range Interpretation Comments PROTIME (BEAKER) (test code = 13.4 seconds 11.7-14.7 759) INR (BEAKER) (test code = 370) 1.0 <=5.9 PARTIAL THROMBOPLASTIN TIME 30.1 seconds 22.5-36.0 (BEAKER) (test code = 760) RECOMMENDED COUMADIN/WARFARIN INR THERAPY RANGESSTANDARD DOSE: 2.0 - 3.0 Includes: PROPHYLAXIS forvenous thrombosis, systemic embolization; TREATMENT for venous thrombosis and/or pulmonary embolus.HIGH RISK: Target INR is 2.5-3.5 for patients with mechanical heart valves.U/S, RENAL, [id number] 03:58:00 Abdomen limited area? Add comment if clarification is [...] Signed: Sarina Mclean MDReport Verified Date/Time: 08/06/2017 03:58:39 Reading Location: [facility] C013X [facility] Consult Reading Room URINALYSIS W/ [id number] 01:01:00 Test Item Value Reference Range Interpretation Comments COLOR (BEAKER) (test code = Light Yellow 470) CLARITY (BEAKER) (test code = Hazy 469) SPECIFIC GRAVITY UA (BEAKER) 1.011 1.001-1.035 (test code = 468) PH UA (BEAKER) (test code = 7.0 5.0-8.0 467) PROTEIN UA (BEAKER) (test code 200 mg/dL Negative A = 464) GLUCOSE UA (BEAKER) (test code Negative Negative = 365) KETONES UA (BEAKER) (test code Negative Negative = 371) BILIRUBIN UA (BEAKER) (test Negative Negative code = 462) BLOOD UA (BEAKER) (test code = Moderate Negative A 461) NITRITE UA (BEAKER) (test code Negative Negative = 465) LEUKOCYTE ESTERASE UA (BEAKER) Moderate Negative A (test code = 466) UROBILINOGEN UA (BEAKER) (test 0.2 mg/dL 0.2-1.0 code = 463) RBC UA (BEAKER) (test code = 22 /HPF 519) WBC UA (BEAKER) (test code = 26 /HPF 520) BACTERIA (BEAKER) (test code = Occasional 517) MUCUS (BEAKER) (test code = Rare 1574) SQUAMOUS EPITHELIAL (BEAKER) < /HPF (test code = 516) HYALINE CASTS (BEAKER) (test 6 /LPF code = 514) TRIPLE PHOSPHATE CRYSTALS Rare (BEAKER) (test code = 1582) AMORPHOUS CRYSTALS (BEAKER) Rare (test code = 1584) SOURCE(BEAKER) (test code = Urine, Voided 5519) [id number] 23:21:00 Test Item Value Reference Range Interpretation Comments LIPASE (BEAKER) (test code = 749) 31 U/L 8-78 [id number] 23:21:00 Test Item Value Reference Range Interpretation Comments AMYLASE (BEAKER) (test code = 349) 71 U/L 25-125 BASIC METABOLIC [id number] 23:21:00 Test Item Value Reference Range Interpretation Comments SODIUM (BEAKER) 139 meq/L 136-145 (test code = 381) POTASSIUM (BEAKER) 3.8 meq/L 3.5-5.1 (test code = 379) CHLORIDE (BEAKER) 104 meq/L 98-107 (test code = 382) CO2 (BEAKER) (test 22 meq/L 22-29 code = 355) BLOOD UREA NITROGEN 29 mg/dL 7-21 H (BEAKER) (test code = 354) CREATININE (BEAKER) 1.01 mg/dL 0.57-1.25 (test code = 358) GLUCOSE RANDOM 104 mg/dL 70-105 (BEAKER) (test code = 652) CALCIUM (BEAKER) 9.2 mg/dL 8.4-10.2 (test code = 697) EGFR (BEAKER) (test 54 mL/min/1.73 ESTIMA AGUSTÍN GFR IS code = 1092) sq m NOT ACCURATE CREATININE CLEARANCE IN PREDICTING GLOMERULAR FILTRATION RATE . ESTIMATED GFR I S NOT APPLICABLE FOR DIALYSIS PATIEN TS. HEPATIC FUNCTION [id number] 23:21:00 Test Item Value Reference Range Interpretation Comments TOTAL PROTEIN (BEAKER) (test code = 7.3 gm/dL 6.0-8.3 770) ALBUMIN (BEAKER) (test code = 1145) 3.5 g/dL 3.5-5.0 BILIRUBIN TOTAL (BEAKER) (test code < mg/dL 0.2-1.2 = 377) BILIRUBIN DIRECT (BEAKER) (test 0.1 mg/dL 0.1-0.5 code = 706) ALKALINE PHOSPHATASE (BEAKER) (test 92 U/L 40-150 code = 346) AST (SGOT) (BEAKER) (test code = 17 U/L 5-34 353) ALT (SGPT) (BEAKER) (test code = 12 U/L 6-55 347) CBC W/PLT COUNT & AUTO [id number] 23:15:00 Test Item Value Reference Range Interpretation Comments WHITE BLOOD CELL COUNT (BEAKER) 13.0 K/ L 3.5-10.5 H (test code = 775) RED BLOOD CELL COUNT (BEAKER) 3.64 M/ L 3.93-5.22 L (test code = 761) HEMOGLOBIN (BEAKER) (test code = 11.6 GM/DL 11.2-15.7 410) HEMATOCRIT (BEAKER) (test code = 36.0 % 34.1-44.9 411) MEAN CORPUSCULAR VOLUME (BEAKER) 98.9 fL 79.4-94.8 H (test code = 753) MEAN CORPUSCULAR HEMOGLOBIN 31.9 pg 25.6-32.2 (BEAKER) (test code = 751) MEAN CORPUSCULAR HEMOGLOBIN CONC 32.2 GM/DL 32.2-35.5 (BEAKER) (test code = 752) RED CELL DISTRIBUTION WIDTH 13.7 % 11.7-14.4 (BEAKER) (test code = 412) PLATELET COUNT (BEAKER) (test 284 K/CU MM 150-450 code = 756) MEAN PLATELET VOLUME (BEAKER) 9.7 fL 9.4-12.3 (test code = 754) NUCLEATED RED BLOOD CELLS 0 /100 WBC 0-0 (BEAKER) (test code = 413) NEUTROPHILS RELATIVE PERCENT 80 % (BEAKER) (test code = 429) LYMPHOCYTES RELATIVE PERCENT 10 % (BEAKER) (test code = 430) MONOCYTES RELATIVE PERCENT 7 % (BEAKER) (test code = 431) EOSINOPHILS RELATIVE PERCENT 2 % (BEAKER) (test code = 432) BASOPHILS RELATIVE PERCENT 0 % (BEAKER) (test code = 437) NEUTROPHILS ABSOLUTE COUNT 10.38 K/ L 1.56-6.13 H (BEAKER) (test code = 670) LYMPHOCYTES ABSOLUTE COUNT 1.27 K/ L 1.18-3.74 (BEAKER) (test code = 414) MONOCYTES ABSOLUTE COUNT (BEAKER) 0.95 K/ L 0.24-0.36 H (test code = 415) EOSINOPHILS ABSOLUTE COUNT 0.26 K/ L 0.04-0.36 (BEAKER) (test code = 416) BASOPHILS ABSOLUTE COUNT (BEAKER) 0.05 K/ L 0.01-0.08 (test code = 417) IMMATURE GRANULOCYTES-RELATIVE 0 % 0-1 PERCENT (BEAKER) (test code = 2801) ANG, NEPHROSTOMY TUBE CHANGE, [id number] 11:25:00Reason for exam:->BACK PAINReason for exam:->FINAL REPORT Exchange of right percutaneous nephrostomy tube and left percutaneous nephroureteral stent. History: Back pain. Patient presented to the emergency department with a decreased drainage from the right nephrostomy catheter. Modality: Fluoroscopy Sedation: None Stave Cutting Supervisor: Star Georges MD. Host/Hostess Ground: None. Approach: ] Is approximately catheter and [...] exchanged over guidewire for a new 8.5 Macedonian nephrostomy catheter. After t he new catheter was placed contrast was injected which confirmed proper positioning. The catheter isin superior the patient's skin with 2-0 silk and connected to gravity drainage bag. The left nephroureteral stent was then exchanged over guidewire for a new 8.5 Macedonian by 22 cm nephroureteral stent. The distal [...] percutaneous left nephroureteral stent. Signed: Star Georges [facility] Verified Date/Time: 07/08/2017 11:25:07 Reading Location: [place] [address] Angio Body Reading Room URINALYSIS W/ [id number] 09:16:00 Test Item Value Reference Range Interpretation Comments COLOR (BEAKER) (test code Yellow = 470) CLARITY (BEAKER) (test Hazy code = 469) SPECIFIC GRAVITY UA 1.018 1.001-1.035 (BEAKER) (test code = 468) PH UA (BEAKER) (test code 7.5 5.0-8.0 = 467) PROTEIN UA (BEAKER) (test 300 mg/dL Negative A code = 464) GLUCOSE UA (BEAKER) (test Negative Negative code = 365) KETONES UA (BEAKER) (test Negative Negative code = 371) BILIRUBIN UA (BEAKER) Negative Negative (test code = 462) BLOOD UA (BEAKER) (test Small Negative A code = 461) NITRITE UA (BEAKER) (test Negative Negative code = 465) LEUKOCYTE ESTERASE UA Moderate Negative A (BEAKER) (test code = 466) UROBILINOGEN UA (BEAKER) 0.2 mg/dL 0.2-1.0 (test code = 463) RBC UA (BEAKER) (test code > /HPF = 519) WBC UA (BEAKER) (test code > /HPF = 520) SQUAMOUS EPITHELIAL 1 /HPF (BEAKER) (test code = 516) SOURCE(BEAKER) (test code Urine, Nephrostomy = 5075) CBC W/PLT COUNT & AUTO [id number] 08:56:00 Test Item Value Reference Range Interpretation Comments WHITE BLOOD CELL COUNT (BEAKER) 10.2 K/ L 3.5-10.5 (test code = 775) RED BLOOD CELL COUNT (BEAKER) 3.40 M/ L 3.93-5.22 L (test code = 761) HEMOGLOBIN (BEAKER) (test code = 10.9 GM/DL 11.2-15.7 L 410) HEMATOCRIT (BEAKER) (test code = 33.7 % 34.1-44.9 L 411) MEAN CORPUSCULAR VOLUME (BEAKER) 99.1 fL 79.4-94.8 H (test code = 753) MEAN CORPUSCULAR HEMOGLOBIN 32.1 pg 25.6-32.2 (BEAKER) (test code = 751) MEAN CORPUSCULAR HEMOGLOBIN CONC 32.3 GM/DL 32.2-35.5 (BEAKER) (test code = 752) RED CELL DISTRIBUTION WIDTH 15.2 % 11.7-14.4 H (BEAKER) (test code = 412) PLATELET COUNT (BEAKER) (test 317 K/CU MM 150-450 code = 756) MEAN PLATELET VOLUME (BEAKER) 9.8 fL 9.4-12.3 (test code = 754) NUCLEATED RED BLOOD CELLS 0 /100 WBC 0-0 (BEAKER) (test code = 413) NEUTROPHILS RELATIVE PERCENT 79 % (BEAKER) (test code = 429) LYMPHOCYTES RELATIVE PERCENT 10 % (BEAKER) (test code = 430) MONOCYTES RELATIVE PERCENT 9 % (BEAKER) (test code = 431) EOSINOPHILS RELATIVE PERCENT 2 % (BEAKER) (test code = 432) BASOPHILS RELATIVE PERCENT 0 % (BEAKER) (test code = 437) NEUTROPHILS ABSOLUTE COUNT 8.07 K/ L 1.56-6.13 H (BEAKER) (test code = 670) LYMPHOCYTES ABSOLUTE COUNT 1.06 K/ L 1.18-3.74 L (BEAKER) (test code = 414) MONOCYTES ABSOLUTE COUNT (BEAKER) 0.88 K/ L 0.24-0.36 H (test code = 415) EOSINOPHILS ABSOLUTE COUNT 0.16 K/ L 0.04-0.36 (BEAKER) (test code = 416) BASOPHILS ABSOLUTE COUNT (BEAKER) 0.02 K/ L 0.01-0.08 (test code = 417) IMMATURE GRANULOCYTES-RELATIVE 1 % 0-1 PERCENT (BEAKER) (test code = 2801) BASIC METABOLIC [id number] 08:48:00 Test Item Value Reference Range Interpretation Comments SODIUM (BEAKER) 138 meq/L 136-145 (test code = 381) POTASSIUM (BEAKER) 4.6 meq/L 3.5-5.1 (test code = 379) CHLORIDE (BEAKER) 104 meq/L 98-107 (test code = 382) CO2 (BEAKER) (test 23 meq/L 22-29 code = 355) BLOOD UREA NITROGEN 40 mg/dL 7-21 H (BEAKER) (test code = 354) CREATININE (BEAKER) 1.03 mg/dL 0.57-1.25 (test code = 358) GLUCOSE RANDOM 140 mg/dL 70-105 H (BEAKER) (test code = 652) CALCIUM (BEAKER) 9.1 mg/dL 8.4-10.2 (test code = 697) EGFR (BEAKER) (test 52 mL/min/1.73 ESTIMA AGUSTÍN GFR IS code = 1092) sq m NOT ACCURATE CREATININE CLEARANCE IN PREDICTING GLOMERULAR FILTRATION RATE . ESTIMATED GFR I S NOT APPLICABLE FOR DIALYSIS PATIEN TS. URINE [id number] 08:09:00 Test Item Value Reference Interpretation Comments Range CULTURE (BEAKER) STENOTROPHOMONAS A >100,00 0 col/mL (test code = 1095) MALTOPHILIA Stenotrop homonas maltophilia Amikacin (test code = 1) Ampicillin (test code = 26) Ampicillin + Sulbactam (test code = 6) Aztreonam (test code = 32) Cefazolin (test code = 9) Cefepime (test code = 51) Ceftazidime (test Susceptible S code = 27) 0-8 , Resistant <0 or >8 Ceftriaxone (test code = 52) Ciprofloxacin (test code = 7) Doripenem (test code = 100) Ertapenem (test code = 38) Gentamicin (test code = 18) Imipenem (test code = 19) Levofloxacin (test Susceptible R code = 22) 0-2 , Resistant <0 or >2 Meropenem (test code = 34) Minocycline (test Susceptible S code = 35) 0-4 , Resistant <0 or >4 Nitrofurantoin (test code = 23) Piperacillin (test code = 24) Piperacillin + Tazobactam (test code = 29) Tetracycline (test code = 2) Ticarcillin + Clavulanic Acid (test code = 80) Tigecycline (test code = 133) Tobramycin (test code = 25) Trimethoprim + Susceptible S Sulfamethoxazole 0-40 , (test code = 47) Resistant <0 or >40 CULTURE (BEAKER) COAGULASE NEGATIVE A >100, 000 col/mL (test code = 1095) STAPHYLOCOCCUS Coagula se negative Staphylococcus Ampicillin (test code = 262) Ciprofloxacin (test code = 72) Clindamycin (test R code = 10) Daptomycin (test code = 59) Erythromycin (test R code = 4) Gentamicin (test code = 182) Gentamicin High Level Synergy (test code = 241) Levofloxacin (test R code = 22) Linezolid (test S code = 40) Moxifloxacin (test code = 36) Nitrofurantoin S (test code = 23) Oxacillin (test R code = 14) Rifampin (test code S = 43) Streptomycin High Level Synergy (test code = 242) Tetracycline (test S code = 2) Tigecycline (test code = 1332) Trimethoprim + S Sulfamethoxazole (test code = 47) Vancomycin (test S code = 13) URINALYSIS W/ [id number] 10:28:00 Test Item Value Reference Range Interpretation Comments COLOR (BEAKER) (test code Yellow = 470) CLARITY (BEAKER) (test Clear code = 469) SPECIFIC GRAVITY UA 1.014 1.001-1.035 (BEAKER) (test code = 468) PH UA (BEAKER) (test code 6.0 5.0-8.0 = 467) PROTEIN UA (BEAKER) (test 50 mg/dL Negative A code = 464) GLUCOSE UA (BEAKER) (test Negative Negative code = 365) KETONES UA (BEAKER) (test Negative Negative code = 371) BILIRUBIN UA (BEAKER) Negative Negative (test code = 462) BLOOD UA (BEAKER) (test Trace Negative A code = 461) NITRITE UA (BEAKER) (test Positive Negative A code = 465) LEUKOCYTE ESTERASE UA Large Negative A (BEAKER) (test code = 466) UROBILINOGEN UA (BEAKER) 0.2 mg/dL 0.2-1.0 (test code = 463) RBC UA (BEAKER) (test code 1 /HPF = 519) WBC UA (BEAKER) (test code 15 /HPF = 520) BACTERIA (BEAKER) (test Rare code = 517) HYALINE CASTS (BEAKER) 9 /LPF (test code = 514) CRYSTALS, URINE (BEAKER) Rare (test code = 1521) SOURCE(BEAKER) (test code Urine, Nephrostomy = 2795) BASIC METABOLIC [id number] 10:18:00 Test Item Value Reference Range Interpretation Comments SODIUM (BEAKER) 136 meq/L 136-145 (test code = 381) POTASSIUM (BEAKER) 3.8 meq/L 3.5-5.1 (test code = 379) CHLORIDE (BEAKER) 100 meq/L 98-107 (test code = 382) CO2 (BEAKER) (test 24 meq/L 22-29 code = 355) BLOOD UREA NITROGEN 26 mg/dL 7-21 H (BEAKER) (test code = 354) CREATININE (BEAKER) 0.89 mg/dL 0.57-1.25 (test code = 358) GLUCOSE RANDOM 82 mg/dL 70-105 (BEAKER) (test code = 652) CALCIUM (BEAKER) 9.3 mg/dL 8.4-10.2 (test code = 697) EGFR (BEAKER) (test 62 mL/min/1.73 ESTIMA AGUSTÍN GFR IS code = 1092) sq m NOT ACCURATE CREATININE CLEARANCE IN PREDICTING GLOMERULAR FILTRATION RATE . ESTIMATED GFR I S NOT APPLICABLE FOR DIALYSIS PATIEN TS. CBC W/PLT COUNT & AUTO [id number] 10:12:00 Test Item Value Reference Range Interpretation Comments WHITE BLOOD CELL COUNT (BEAKER) 9.6 K/ L 4.0-10.0 (test code = 775) RED BLOOD CELL COUNT (BEAKER) 3.48 M/ L 4.00-5.00 L (test code = 761) HEMOGLOBIN (BEAKER) (test code = 10.4 GM/DL 12.0-15.0 L 410) HEMATOCRIT (BEAKER) (test code = 33.0 % 36.0-45.0 L 411) MEAN CORPUSCULAR VOLUME (BEAKER) 94.8 fL 82.0-99.0 (test code = 753) MEAN CORPUSCULAR HEMOGLOBIN 29.9 pg 27.0-33.0 (BEAKER) (test code = 751) MEAN CORPUSCULAR HEMOGLOBIN CONC 31.5 GM/DL 32.0-36.0 L (BEAKER) (test code = 752) RED CELL DISTRIBUTION WIDTH 15.7 % 10.3-14.2 H (BEAKER) (test code = 412) PLATELET COUNT (BEAKER) (test 548 K/CU MM 150-430 H code = 756) MEAN PLATELET VOLUME (BEAKER) 6.2 fL 6.5-10.5 L (test code = 754) NUCLEATED RED BLOOD CELLS 0 /100 WBC 0-0 (BEAKER) (test code = 413) NEUTROPHILS RELATIVE PERCENT 70 % (BEAKER) (test code = 429) LYMPHOCYTES RELATIVE PERCENT 17 % (BEAKER) (test code = 430) MONOCYTES RELATIVE PERCENT 12 % (BEAKER) (test code = 431) EOSINOPHILS RELATIVE PERCENT 2 % (BEAKER) (test code = 432) BASOPHILS RELATIVE PERCENT 1 % (BEAKER) (test code = 437) NEUTROPHILS ABSOLUTE COUNT 6.65 K/ L 1.80-8.00 (BEAKER) (test code = 670) LYMPHOCYTES ABSOLUTE COUNT 1.58 K/ L 1.48-4.50 (BEAKER) (test code = 414) MONOCYTES ABSOLUTE COUNT (BEAKER) 1.11 K/ L 0.00-1.30 (test code = 415) EOSINOPHILS ABSOLUTE COUNT 0.17 K/ L 0.00-0.50 (BEAKER) (test code = 416) BASOPHILS ABSOLUTE COUNT (BEAKER) 0.06 K/ L 0.00-0.20 (test code = 417) [id number] 10:12:00 Test Item Value Reference Range Interpretation Comments PROTIME (BEAKER) (test code = 13.4 seconds 11.7-14.7 759) INR (BEAKER) (test code = 370) 1.0 <=5.9 PARTIAL THROMBOPLASTIN TIME 36.3 seconds 22.5-36.0 H (BEAKER) (test code = 760) RECOMMENDED COUMADIN/WARFARIN INR THERAPY RANGESSTANDARD DOSE: 2.0 - 3.0 Includes: PROPHYLAXIS forvenous thrombosis, systemic embolization; TREATMENT for venous thrombosis and/or pulmonary embolus.HIGH RISK: Target INR is 2.5-3.5 for patients with mechanical heart valves.POCT-GLUCOSE [id number] 13:22:00 Test Item Value Reference Range Interpretation Comments POC-GLUCOSE METER 136 mg/dL 70-110 H TESTED AT [facility] [address] ([facility]) (test code = [place] 1538) [id number] POCT-GLUCOSE [id number] 07:56:00 Test Item Value Reference Range Interpretation Comments POC-GLUCOSE METER 185 mg/dL 70-110 H TESTED AT [facility] [address] ([facility]) (test code = [place] 1538) [id number] HEMOGLOBIN AND [id number] 06:36:00 Test Item Value Reference Range Interpretation Comments HEMOGLOBIN (BEAKER) (test code = 9.1 GM/DL 12.0-15.0 L 410) HEMATOCRIT (BEAKER) (test code = 29.3 % 36.0-45.0 L 411) BASIC METABOLIC [id number] 06:21:00 Test Item Value Reference Range Interpretation Comments SODIUM (BEAKER) 142 meq/L 136-145 (test code = 381) POTASSIUM (BEAKER) 3.8 meq/L 3.5-5.1 (test code = 379) CHLORIDE (BEAKER) 108 meq/L 98-107 H (test code = 382) CO2 (BEAKER) (test 22 meq/L 22-29 code = 355) BLOOD UREA NITROGEN 30 mg/dL 7-21 H (BEAKER) (test code = 354) CREATININE (BEAKER) 1.44 mg/dL 0.57-1.25 H (test code = 358) GLUCOSE RANDOM 133 mg/dL 70-105 H (BEAKER) (test code = 652) CALCIUM (BEAKER) 8.3 mg/dL 8.4-10.2 L (test code = 697) EGFR (BEAKER) (test 36 mL/min/1.73 ESTIMA AGUSTÍN GFR IS code = 1092) sq m NOT ACCURATE CREATININE CLEARANCE IN PREDICTING GLOMERULAR FILTRATION RATE . ESTIMATED GFR I S NOT APPLICABLE FOR DIALYSIS PATIEN TS. [id number] 06:05:00 Test Item Value Reference Range Interpretation Comments PROTIME (BEAKER) (test code = 15.8 seconds 11.7-14.7 H 759) INR (BEAKER) (test code = 370) 1.3 <=5.9 PARTIAL THROMBOPLASTIN TIME 39.7 seconds 22.5-36.0 H (BEAKER) (test code = 760) RECOMMENDED COUMADIN/WARFARIN INR THERAPY RANGESSTANDARD DOSE: 2.0 - 3.0 Includes: PROPHYLAXIS forvenous thrombosis, systemic embolization; TREATMENT for venous thrombosis and/or pulmonary embolus.HIGH RISK: Target INR is 2.5-3.5 for patients with mechanical heart valves.POCT-GLUCOSE [id number] 20:59:00 Test Item Value Reference Range Interpretation Comments POC-GLUCOSE METER 139 mg/dL 70-110 H TESTED AT [place] [address] ([facility]) (test code = [facility] 1538) [id number] POCT-GLUCOSE [id number] 17:25:00 Test Item Value Reference Range Interpretation Comments POC-GLUCOSE METER 213 mg/dL 70-110 H TESTED AT [place] [address] ([facility]) (test code = [facility] 1538) [id number] BASIC METABOLIC [id number] 15:09:00 Test Item Value Reference Range Interpretation Comments SODIUM (BEAKER) 140 meq/L 136-145 (test code = 381) POTASSIUM (BEAKER) 3.8 meq/L 3.5-5.1 (test code = 379) CHLORIDE (BEAKER) 106 meq/L 98-107 (test code = 382) CO2 (BEAKER) (test 24 meq/L 22-29 code = 355) BLOOD UREA NITROGEN 35 mg/dL 7-21 H (BEAKER) (test code = 354) CREATININE (BEAKER) 1.64 mg/dL 0.57-1.25 H (test code = 358) GLUCOSE RANDOM 181 mg/dL 70-105 H (BEAKER) (test code = 652) CALCIUM (BEAKER) 8.2 mg/dL 8.4-10.2 L (test code = 697) EGFR (BEAKER) (test 31 mL/min/1.73 ESTIMA AGUSTÍN GFR IS code = 1092) sq m NOT ACCURATE CREATININE CLEARANCE IN PREDICTING GLOMERULAR FILTRATION RATE . ESTIMATED GFR I S NOT APPLICABLE FOR DIALYSIS PATIEN TS. PROTHROMBIN [id number] 14:53:00 Test Item Value Reference Range Interpretation Comments PROTIME (BEAKER) (test code = 15.6 seconds 11.7-14.7 H 759) INR (BEAKER) (test code = 370) 1.3 <=5.9 RECOMMENDED COUMADIN/WARFARIN INR THERAPY RANGESSTANDARD DOSE: 2.0 - 3.0 Includes: PROPHYLAXIS forvenous thrombosis, systemic embolization; TREATMENT for venous thrombosis and/or pulmonary embolus.HIGH RISK: Target INR is 2.5-3.5 for patients with mechanical heart valves.HEMOGLOBIN AND [id number] 14:50:00 Test Item Value Reference Range Interpretation Comments HEMOGLOBIN (BEAKER) (test code = 10.4 GM/DL 12.0-15.0 L 410) HEMATOCRIT (BEAKER) (test code = 32.6 % 36.0-45.0 L 411) CBC W/PLT COUNT & AUTO [id number] 12:10:00 Test Item Value Reference Range Interpretation Comments WHITE BLOOD CELL COUNT (BEAKER) 11.7 K/ L 4.0-10.0 H (test code = 775) RED BLOOD CELL COUNT (BEAKER) 3.31 M/ L 4.00-5.00 L (test code = 761) HEMOGLOBIN (BEAKER) (test code = 9.9 GM/DL 12.0-15.0 L 410) HEMATOCRIT (BEAKER) (test code = 31.3 % 36.0-45.0 L 411) MEAN CORPUSCULAR VOLUME (BEAKER) 94.5 fL 82.0-99.0 (test code = 753) MEAN CORPUSCULAR HEMOGLOBIN 30.0 pg 27.0-33.0 (BEAKER) (test code = 751) MEAN CORPUSCULAR HEMOGLOBIN CONC 31.7 GM/DL 32.0-36.0 L (BEAKER) (test code = 752) RED CELL DISTRIBUTION WIDTH 14.6 % 10.3-14.2 H (BEAKER) (test code = 412) PLATELET COUNT (BEAKER) (test 393 K/CU MM 150-430 code = 756) MEAN PLATELET VOLUME (BEAKER) 7.4 fL 6.5-10.5 (test code = 754) NUCLEATED RED BLOOD CELLS 0 /100 WBC 0-0 (BEAKER) (test code = 413) NEUTROPHILS RELATIVE PERCENT 76 % (BEAKER) (test code = 429) LYMPHOCYTES RELATIVE PERCENT 11 % (BEAKER) (test code = 430) MONOCYTES RELATIVE PERCENT 12 % (BEAKER) (test code = 431) EOSINOPHILS RELATIVE PERCENT 2 % (BEAKER) (test code = 432) BASOPHILS RELATIVE PERCENT 0 % (BEAKER) (test code = 437) NEUTROPHILS ABSOLUTE COUNT 8.83 K/ L 1.80-8.00 H (BEAKER) (test code = 670) LYMPHOCYTES ABSOLUTE COUNT 1.23 K/ L 1.48-4.50 L (BEAKER) (test code = 414) MONOCYTES ABSOLUTE COUNT (BEAKER) 1.42 K/ L 0.00-1.30 H (test code = 415) EOSINOPHILS ABSOLUTE COUNT 0.19 K/ L 0.00-0.50 (BEAKER) (test code = 416) BASOPHILS ABSOLUTE COUNT (BEAKER) 0.00 K/ L 0.00-0.20 (test code = 417) [id number] 11:59:00 Test Item Value Reference Range Interpretation Comments SODIUM (BEAKER) (test code = 381) 141 meq/L 136-145 POTASSIUM (BEAKER) (test code = 3.7 meq/L 3.5-5.1 379) CHLORIDE (BEAKER) (test code = 382) 107 meq/L 98-107 CO2 (BEAKER) (test code = 355) 24 meq/L 22-29 BUN AND [id number] 11:53:00 Test Item Value Reference Range Interpretation Comments BLOOD UREA NITROGEN 38 mg/dL 7-21 H (BEAKER) (test code = 354) CREATININE (BEAKER) 1.61 mg/dL 0.57-1.25 H (test code = 358) EGFR (BEAKER) (test 31 mL/min/1.73 ESTIMA AGUSTÍN GFR IS code = 1092) sq m NOT ACCURATE CREATININE CLEARANCE IN PREDICTING GLOMERULAR FILTRATION RATE . ESTIMATED GFR I S NOT APPLICABLE FOR DIALYSIS PATIEN TS. POCT-GLUCOSE [id number] 10:51:00 Test Item Value Reference Range Interpretation Comments POC-GLUCOSE METER 52 mg/dL 70-110 L Notified Jennifer Schafer MD/TESTED AT ([facility]) (test code = [facility] [address]) [facility] [phone]
--- NOTE | 2021-02-06 18:31 | RAD REPORT ---
EXAM DESCRIPTION: RAD - Knee Right 3 View - 02/06/2021 5:59 pm CLINICAL HISTORY: knee pain COMPARISON: No comparisonsNone. FINDINGS: No fracture, dislocation or periosteal reaction.No measurable joint effusion. Total knee p rosthesis in place with no radiographic evidence for loosening. No foreign body or other soft tissue abnormality. IMPRESSION: No implant or [place] bone acute finding.
[2021-02-06 19:12] LABS: Absolute Lymphocytes (CBC) 0.6 K/uL (0.7-4.9); Basophils % 0.7 % (0-1.3); Hematocrit 35.6 % (36.0-45.0); Lymphocytes % 7.1 % (15.3-44.8); MPV 8.8 fL (7.6-11.3); RBC Red Blood Cell Count 3.63 M/uL (3.86-4.86)
[2021-02-06 19:28] LABS: Albumin 2.6 g/dL (3.4-5.0); Bilirubin Total 0.4 mg/dL (0.2-1.0); Potassium 3.8 mmol/L (3.5-5.1); Protein, Total 7.8 g/dL (6.4-8.2)
--- NOTE | 2021-02-06 19:41 | RAD REPORT ---
EXAM DESCRIPTION: US - Extremity Venous Uni Ltd - 02/06/2021 6:39 pm CLINICAL HISTORY: Pain;Swelling COMPARISON: No relevant comparison TECHNIQUE: Real-time sonographic evaluation of the right lower extremity deep venous systems was per formed. FINDINGS: Normal compressibility, flow augmentation, phasic flow and spontaneous flow are identified in the right lower extremity common femoral, superficial femoral, popliteal and posterior tibial vei ns. No intraluminal filling defects seen in the deep venous system. Greater saphenous vein approximately 2 cm from the common femoral vein shows thrombus with limited or no blood flow identifiable on Doppler evaluation. IMPRESSION: Superficial venous thrombosis present in the right greater saphenous vein. No evidence for acute thrombus in the deep venous system.
[2021-02-06 19:47] LABS: Protime INR 1.1
--- NOTE | 2021-02-06 20:47 | RAD REPORT ---
EXAM DESCRIPTION: CT - Chest For Pe Angio - 02/06/2021 8:31 pm CLINICAL HISTORY: DVT, rule out PE COMPARISON: Chest Abd Pelvis Wo Con dated 03/10/2017; Extremity Venous Uni Ltd dated 02/06/2021 TECHNIQUE: Dynamically enhanced 3 mm thick images of the chest were obtained during administration o f approximately 150mL Isovue 370 IV contrast. Coronal and oblique MIP reconstruction images were gene rated and reviewed. Exam utilizes a protocol to evaluate the pulmonary arterial tree. All CT scans are performed using dose optimization technique as appropriate and may include automated exposure control or mA/KV adjustment according to patient size. FINDINGS: No pulmonary emboli are identified. The aorta as imaged shows no acute or suspicious finding. No pericardial thickening or effusion. Card iomegaly is present. No infiltrate or mass in the lung parenchyma. No pleural effusion or pleural thickening. No mediastinal or hilar suspicious masses. No chest wall masses or abnormal axillary lymphadenopathy. IMPRESSION: No pulmonary emboli identified. Cardiomegaly. No other significant findings.
--- NOTE | 2021-02-06 20:59 | ER ---
Nurse's Notes [facility] Name: Mary Archuleta Age: 80 yrs Sex: Female : 1940 Arrival Date: 02/06/2021 Time: 14:50 Bed 28 Private MD: Diagnosis: Phlebitis and thrombophlebitis of superficial vessels of right lower extremity Presentation: 02/06 14:56 Chief complaint: Patient states: R knee pain since Thursday, hard to reposition and ca1 pain with movement. Denies injury to the knee. Coronavirus screen: Client denies travel out of the [place] in the last 14 days. At this time, the client does not indicate any symptoms associated with coronavirus-19. Ebola Screen: Patient negative for fever greater than or equal to 101.5 degrees Fahrenheit, and additional compatible Ebola Virus Disease symptoms Patient denies exposure to infectious person. Patient denies travel to an Ebola-affected area in the 21 days before illness onset. No symptoms or risks identified at this time. Initial Sepsis Screen: Does the patient meet any 2 criteria? No. Patient's initial sepsis screen is negative. Does the patient have a suspected source of infection? No. Patient's initial sepsis screen is negative. Risk Assessment: Do you want to hurt yourself or someone else? Patient reports no desire to harm self or others. Onset of symptoms was February 06, 2021. 14:56 Method Of Arrival: Wheelchair ca1 14:56 Acuity: SILVERIO 4 ca1 18:41 Acuity: SILVERIO 3 iw Historical: - Allergies: 15:00 Lisinopril; ca1 - PMHx: 15:00 Atrial Fib; BREAST CA; cervical cancer; Depression; Diabetes - NIDDM; Hyperlipidemia; ca1 Hypertension; Hypothyroidism; lymphedema; peptic ulcers; - Immunization history:: Client reports receiving the 2nd dose of the Covid vaccine, Client reports receiving the 1st dose of the Covid vaccine, Pneumococcal vaccine is up to date, Flu vaccine is up to date. - Social history:: Smoking status: Patient denies any tobacco usage or history of. Screenin:27 Abuse screen: Denies threats or abuse. Denies injuries from another. Nutritional iw screening: No deficits noted. Tuberculosis screening: No symptoms or risk factors identified. Fall Risk None identified. Assessment: 18:00 General: Appears in no apparent distress. Behavior is calm, cooperative. Pain: Pain: iw Complains of pain in right leg. 18:26 Neuro: Level of Consciousness is awake, alert, obeys commands, Oriented to person, iw place, time, situation, Moves all extremities. Cardiovascular: Patient's skin is warm and dry. Respiratory: Respiratory effort is even, unlabored. Derm: Skin is intact. Musculoskeletal: Range of motion: limited in right knee. 20:43 Reassessment: Patient appears in no apparent distress at this time. Patient and/or em family updated on plan of care and expected duration. Pain level reassessed. Patient is alert, oriented x 3, equal unlabored respirations, skin warm/dry/pink. Vital Signs: 14:56 BP 117 / 65; Pulse 76; Resp 16; Temp 97.3; Pulse Ox 98% on R/A; Weight 61.23 kg (R); ca1 Height 5 ft. 2 in. (157.48 cm); Pain 4/10; 20:45 BP 170 / 78; Pulse 81; Resp 18; Pulse Ox 99% on R/A; em 14:56 Body Mass Index 24.69 (61.23 kg, 157.48 cm) ca1 ED Course: 14:50 Patient arrived in ED. am2 14:59 Triage completed. ca1 15:00 Arm band placed on right wrist. ca1 17:16 Danny Lo PA is PHCP. jmm 17:16 Tejas Matamoros MD is Attending Physician. jmm 17:24 Juju Shelton, RN is Primary Nurse. iw 17:59 Knee Right 3 View XRAY In Process Unspecified. EDMS 18:38 US Extremity Venous Unilateral Ltd In Process Unspecified. EDMS 18:56 Inserted saline lock: 20 gauge in left antecubital area, using aseptic technique. Blood mt collected. 20:31 CT Chest For PE Angio In Process Unspecified. EDMS 21:16 No provider procedures requiring assistance completed. IV discontinued, intact, em bleeding controlled, No redness/swelling at site. Pressure dressing applied. Administered Medications: No medications were administered Outcome: 20:58 Discharge ordered by . jmm 21:16 Discharged to home via wheelchair, with family. em 21:16 Condition: stable 21:16 Discharge instructions given to patient, Instructed on discharge instructions, follow up and referral plans. Demonstrated understanding of instructions, follow-up care. 21:17 Patient left the ED. em Signatures: Dispatcher [employer] Danny Grier PA PA jmm Munoz, Edgar, RN RN Juju Puentes RN RN iw Moreno, Amanda am2 Thompson, Moriah mt Acob, Cheryl, RN RN ca1 Corrections: (The following items were deleted from the chart) 18:27 18:00 Pain: ban cevallos
--- NOTE | 2021-02-06 20:59 | EDPHYS ---
Physician Documentation [facility] Name: Mary Archuleta Age: 80 yrs Sex: Female : 1940 Arrival Date: 02/06/2021 Time: 14:50 Bed 28 Private MD: ED Physician Tejas Matamoros HPI: 02/06 17:32 This 80 yrs old Female presents to ER via Wheelchair with complaints of Knee jmm Pain. 17:32 The patient presents with swelling. Onset: The symptoms/episode began/occurred jmm gradually, 4 day(s) ago. Modifying factors: The symptoms are alleviated by nothing. the symptoms are aggravated by movement, weight bearing. Associated signs and symptoms: Pertinent positives: swelling. This is a 80 year old female with a history of DM, depression, that presents to the ED with complaints of right knee pain which began this past Thursday after bending the knee, denies any other known injury. Denies fever. Patient is 9 years s/p TKR. Patient states she also has lymphedema of the right leg. Denies SOB. Historical: - Allergies: 15:00 Lisinopril; ca1 - PMHx: 15:00 Atrial Fib; BREAST CA; cervical cancer; Depression; Diabetes - NIDDM; Hyperlipidemia; ca1 Hypertension; Hypothyroidism; lymphedema; peptic ulcers; - Immunization history:: Client reports receiving the 2nd dose of the Covid vaccine, Client reports receiving the 1st dose of the Covid vaccine, Pneumococcal vaccine is up to date, Flu vaccine is up to date. - Social history:: Smoking status: Patient denies any tobacco usage or history of. ROS: 17:32 Constitutional: Negative for fever, chills, and weight loss, Cardiovascular: Negative jmm for chest pain, palpitations, and edema, Respiratory: Negative for shortness of breath, cough, wheezing, and pleuritic chest pain. 17:32 MS/extremity: Positive for pain, swelling. 17:32 All other systems are negative. Exam: 17:32 Constitutional: This is a well developed, well nourished patient who is awake, alert, jmm and in no acute distress. Head/Face: atraumatic. Eyes: EOMI, no conjunctival erythema appreciated ENT: Moist Mucus Membranes Neck: Trachea midline, Supple Chest/axilla: Normal chest wall appearance and motion. Cardiovascular: Regular rate and rhythm. No edema appreciated Respiratory: Normal respirations, no respiratory distress appreciated Abdomen/GI: Non distended, soft Back: Normal ROM Skin: General appearance color normal 17:32 Musculoskeletal/extremity: swelling and edema noted to the enttire right leg, painful flexion on rom, full dorsalis pulse, compartments are soft, NVI. 17:32 Skin: Appearance: Color: normal in color. 17:32 Neuro: Orientation: is normal, Mentation: is normal, Memory: is normal. 17:32 Psych: Behavior/mood is pleasant, cooperative. Vital Signs: 14:56 BP 117 / 65; Pulse 76; Resp 16; Temp 97.3; Pulse Ox 98% on R/A; Weight 61.23 kg (R); ca1 Height 5 ft. 2 in. (157.48 cm); Pain 4/10; 20:45 BP 170 / 78; Pulse 81; Resp 18; Pulse Ox 99% on R/A; em 14:56 Body Mass Index 24.69 (61.23 kg, 157.48 cm) ca1 MDM: 17:[address] [facility] 20:56 Data reviewed: vital signs, nurses notes. Counseling: I had a detailed discussion with mary the patient and/or guardian regarding: the historical points, exam findings, and any diagnostic results supporting the discharge/admit diagnosis, lab results, radiology results, the need for outpatient follow up, to return to the emergency department if symptoms worsen or persist or if there are any questions or concerns that arise at home. ED course: US reveals superficial DVT. Due to previous bleeding with Eliquis would advise to follow up with PCP for close US monitoring. Patient is otherwise given strict return precautions for increased pain or shortness of breath. . 02/06 18:39 Order name: CBC with Diff; Complete Time: 19:37 [facility] 02/06 18:39 Order name: CMP; Complete Time: 19:29 [facility] 02/06 17:31 Order name: Knee Right 3 View XRAY; Complete Time: 18:33 [facility] 02/06 17:31 Order name: US Extremity Venous Unilateral Ltd; Complete Time: 19:46 [facility] 02/06 18:39 Order name: PT-INR; Complete Time: 19:54 [facility] 02/06 19:30 Order name: CT Chest For PE Angio; Complete Time: 20:49 [facility] 02/06 18:39 Order name: Saline Lock; Complete Time: 18:56 [facility] Administered Medications: No medications were administered Disposition: 02/06/21 20:58 Discharged to Home. Impression: Phlebitis and thrombophlebitis of superficial vessels of right lower extremity. - Condition is Stable. - Discharge Instructions: Phlebitis. - Medication Reconciliation Form, Thank You Letter, Antibiotic Education, Prescription Opioid Use form. - Follow up: Private Physician; When: 2 - 3 days; Reason: Recheck today's complaints, Continuance of care, Re-evaluation by your physician. Addendum: 02/09/2021 07:08 Co-signature as Attending Physician, Tejas Matamoros MD. r n Signatures: Dispatcher [employer] EDDanny Lundberg PA PA jmm Munoz, Edgar, RN RN Tejas Piper MD MD rn Acob, TASHA Parekh RN ca1 Corrections: (The following items were deleted from the chart) 02/06 21:17 20:58 02/06/2021 20:58 Discharged to Home. Impression: Phlebitis and thrombophlebitis em of superficial vessels of right lower extremity. Condition is Stable. Forms are Medication Reconciliation Form, Thank You Letter, Antibiotic Education, Prescription Opioid Use. Follow up: Private Physician; When: 2 - 3 days; Reason: Recheck today's complaints, Continuance of care, Re-evaluation by your physician. [facility]
[2021-02-07 13:14] VITALS: TEMP 97.3
[2021-02-07 13:15] VITALS: BP 170/78; O2SAT 99
== END 2021-02-06 21:17 | disposition home or self-care (01) ==
LOC: ER 14:49
DX: I80.01 Phlebitis and thrombophlebitis of superficial vessels of right lower extremity (principal); I10 Essential (primary) hypertension; Z85.3 Personal history of malignant neoplasm of breast; Z85.41 Personal history of malignant neoplasm of cervix uteri; Z88.8 Allergy status to other drugs, medicaments and biological substances; Z96.651 Presence of right artificial knee joint
CPT/HCPCS: 85025; 36415; 85610; 80053; 71275; 73562; 93971; Q9967; 99283

== ENCOUNTER 2021-05-23 20:59 | Emergency (ER) | payer OTHER, BC ==
--- OUTSIDE RECORDS SUMMARY | 2021-05-23 21:06 | XMS REPORT | Continuity of Care Document ---
:[address] [facility] t Address [address] [place] [address] Care Team Providers Name Role Phone Aniya Kenny MD Primary Care Physician [phone] ANAT Attending Clinician Unavailable ROBERT Attending Clinician Unavailable KIMBERLEE Attending Clinician Unavailable MD SERGIO Attending Clinician Unavailable SHALINI Attending Clinician Unavailable Anthony Ambrose MD Attending Clinician ANTHONY AMBROSE Attending Clinician Unavailable MD VENITA COPPOLA Attending Clinician Unavailable RADHA Attending Clinician Unavailable FESTUS Attending Clinician Unavailable Schuyler BARNES Attending Clinician Unavailable KAMRYN CLEMENT Attending Clinician Unavailable BELLE ZUÑIGA Attending Clinician Unavailable DIDI SIMPSON Attending Clinician Unavailable MARGRET PRITCHARD Attending Clinician Unavailable TAVARES LOPEZ Attending Clinician Unavailable NITISH KEITA Attending Clinician Unavailable NITISH SALAS Attending Clinician Unavailable DAYANA CHARLES Attending Clinician Unavailable FRANCISCA Attending Clinician Unavailable FABY Attending Clinician Unavailable MARCELLE Admitting Clinician Unavailable KAEL Admitting Clinician Unavailable MD Marvel SCRUGGS Admitting Clinician Unavailable ANAT Admitting Clinician Unavailable MD VENITA COPPOLA Admitting Clinician Unavailable ANTHONY AMBROSE Admitting Clinician Unavailable MIREYA Admitting Clinician Unavailable DAYANA CHARLES Admitting Clinician Unavailable MALDONADO MICHELE Admitting Clinician Unavailable FRANCISCA Admitting Clinician Unavailable FABY Admitting Clinician Unavailable Payers Payer Name Policy Type Policy Effective Date Expiration Date Sour ce Number MEDICAREMEDICARE A [id number] 2007 GAURAV Taylor [id number] 2007-P 00:00:00 - Medical resentMedicare Center BLUE CROSS/BLUE [id number] 2015 GAURAV Conley L ukes SHIELDBCBS INDEMNITY 2 00:00:00 - [place] [id number] 2015 -[phone] [address], [place] [address] Problems Condition Condition Condition Status Onset Resolution Last Treating Co mments Source Name Details Category Date Date Treatment Clinician Date Hydronephr Hydronephr Disease Active 2016-[address] [facility]sis [facility]sis [facility]- [facility] 00 [place] Nephrostom Nephrostom Disease Active 2016-[address] y tube y tube 0- [facility] - displaced displaced 00:00: 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 03[facility]23 [facility] - 00:00: Medical 00 [place] History of History of Disease Active [facility] cervical cervical 11-02 [facility] - cancer cancer 00:00: Medical 00 Center Allergies, Adverse Reactions, Alerts Allergy Allergy Status Severity Reaction(s) Onset Inactive Treating Comm ents Source Name Type Date Date Clinician LISINOPR Allergy Active [facility] [place] 6-11 23:30: 39 LISINOPR Allergy Active [facility] [place] 6-11 23:30: 39 Lisinopr Drug Active Other (See Dry cough [facility] il Intolera Comments) 03-19 [facility] - nce 00:[facility]: Medical 00 Center Family History Family Member Diagnosis Comments Start Date Stop Date Source Natural daughter Heart disease [facility] ananda [facility] Natural father Cancer [facility] Natural mother Diabetes [facility] Natural mother Heart disease [facility] Natural sister Diabetes [facility] Social History Social Habit Start Date Stop Date Quantity Comments Source Sex Assigned At [facility] [place] Tobacco use and 2020-10-10 2020-10-[address] [facility] kes - exposure 00:00:00 00:00:00 Medical Center Alcohol intake 2020-10-10 2020-10-10 [facility]00 [facility] alcohol [facility] Center (finding) Smoking Status Start Date Stop Date Source [facility] Medications Ordered Filled Start Stop Current Ordering Indication Dosage Frequency Signature Comments Components Source Medication Medication Date Date Medication? Clinician (SIG) Name Name aspirin 81 Yes 81mg QD Take [address] MG EC 3-09 by mouth [facility] - tablet 11:59: daily. Medical 10 Center ferrous 2019-11 Yes 650mg Take 650 [facility] [...] tablet 23 :00 times Center daily. CHOLECALCIF Yes 1000U Q.5D Take 1,[address] PAO, 6-04 Units by [place] - VITAMIN D3, 15:24: mouth 2 Med ical (VITAMIN D3 09 (two) Center ORAL) times daily . HYDROcodone 2019- Yes 2{tbl} Take [address] -acetaminop 6-04 tablets by Keysha flores - hen (NORCO 15:24: mouth Medica l 10-325) 09 every 6 Center 10-325 mg (six) per tablet hours as needed for Pain . fLUoxetine 2019- Yes 10mg QD Take [address] (PROZAC) 10 6-04 by mouth Luke [facility] - MG capsule 15:24: daily. Medic al 09 Center pravastatin 2019- Yes 20mg QD Take [address] (PRAVACHOL) 6-04 by mouth Luke s - 20 MG 15:24: nightly. Medical tablet 09 Center potassium 2019- Yes 20meq QD Take [address] chloride 6-04 mEq by [facility] - (KLOR-CON) 15:24: mouth Medica l 20 mEq 09 daily . [place] packet metoprolol 2019-0 Yes 25mg QD Take [address] (TOPROL-XL) 6-04 by mouth Luke s - 25 MG 24 hr 15:24: daily. Medi yesica tablet 09 [place] torsemide 0 Yes 20mg QD Take [address] (DEMADEX) 6-04 by mouth [facility] - 20 MG 15:24: daily. Medical tablet 09 [place] omeprazole Yes 20mg QD Take [address] (PRILOSEC) 6-04 by mouth [facility] - 20 MG 15:24: daily . Medical capsule 09 [place] nystatin 2018-11- No Q.25D Apply [facility] (MYCOSTATIN 0-15 10-14 topically Keysha kes - ) 100,000 00:00: 23:59 4 (four) Med ical unit/gram 00 :00 times Center powder daily. ferrous 2018-11- No 325mg Take [address] sulfate 325 0-15 -14 tablet [facility] - (65 FE) MG 00:00: 23:59 (325 mg Med ical tablet 00 :00 total) by Center mouth daily with breakfast. phentermine Yes . [facility] (ADIPEX-P) 9-24 [facility] - 37.5 mg 00:00: Medical tablet 00 Center metFORMIN Yes 1{tbl} QD Take [address] (GLUCOPHAGE 7-06 tablet by Manda es - ) 500 MG 00:00: mouth Medical tablet 00 daily . [place] Vital Signs Vital Name Observation Time Observation Value Comments Source Systolic blood 2021-01-09 15:43:00 120 mm[Hg] [facility] Diastolic blood 2021-01-09 15:43:00 72 mm[Hg] [facility] t [facility] Heart rate 2021-01-09 15:43:00 54 /min [facility] Body temperature 2021-01-09 15:43:00 36.5 Stormy [facility] Respiratory rate 2021-01-09 15:43:00 18 /min [facility] Oxygen saturation in 2021-01-09 15:43:00 100 /min [facility] - Arterial blood by Medical Ce nter Pulse oximetry Body height 2021-01-09 13:11:00 157.5 cm [facility] Body weight 2021-01-09 13:11:00 60.782 kg [facility] BMI 2021-01-09 13:11:00 24.51 kg/m2 [facility] Procedures Procedure Date / Time Performed Performing Clinician Malgorzata e [id number] 2021-04-08 00:00:00 ENCPL [id number] 2021-04-08 00:00:00 ENCPL [id number] 2021-04-08 00:00:00 ENCPL [id number] 2021-04-08 00:00:00 ENCPL [id number] 2021-04-08 00:00:00 ENCPL [id number] 2021-04-02 00:00:00 ENCPL [id number] 2021-04-02 00:00:00 ENCPL [id number] 2021-04-02 00:00:00 ENCPL [id number] 2021-04-02 00:00:00 ENCPL [id number] 2021-04-02 00:00:00 ENCPL IR NEPHROSTOMY TUBE 2021-01-09 15:23:[address] [facility] CHANGE - [facility] [place] IR PERCUTANEOUS 2020-10-10 15:20:[address] [facility] NEPHROSTOMY TUBE [facility] PLACEMENT PROTHROMBIN TIME/INR 2020-10-10 10:38:00 Betsy Samson [facility] APTT 2020-10-10 10:38:00 Betsy Samson [facility] [place] [facility] CBC W/PLT COUNT & AUTO 2020-10-10 10:37:00 Betsy Samson [facility] - DIFFERENTIAL [facility] BASIC METABOLIC PANEL 2020-10-10 10:37:00 Betsy Samson [facility] [place] - ([address] [place] [address] IR PERC NEPHROSTOMY - 2020-07-16 13:35:00 [place]rose [facility] - INT. DRAIN [facility] CBC W/PLT COUNT & AUTO 2020-07-16 10:43:00 Rina Luis [facility] PROTHROMBIN TIME/INR 2020-07-16 10:43:00 Rina Luis [facility] APTT 2020-07-16 10:43:00 Rina Luis [facility] Plan of Care Planned Activity [...] 00:00:00 (1 of 1 - Medical Center [id number] PCV13) [code = PNEUMOCOCCAL 65+ YRS (1 of 1 - [id number] PCV13)] Future Scheduled 1992 SHINGLES VACCINES ([address] [facility] - Test 00:00:00 of 2) [code = SHINGLES Medic [facility] Center VACCINES (1 of 2)] Future Scheduled [...] Date/Time Type Type Clinicians Facility Department ID 2021-05-13 2021-05-13 Outpatient DEBBI COPPOLA [facility] [id number] [place] 00:00:00 00:00:[address] 2021-05-13 2021-05-13 Outpatient DEBBI COPPOLA [facility] 2100 [id number] [place] 00:00:00 00:00:[address] 2021-04-29 2021-04-29 Outpatient [facility] 2100 [id number] [place] 00:00:00 00:00:[address] 2021-04-29 2021-04-29 Outpatient [facility] 2100 [id number] [place] 00:00:00 00:00:[address] 2021-04-15 2021-04-15 Outpatient [facility] 2100 [id number] [place] 00:00:00 00:00:[address] 2021-04-15 2021-04-15 Outpatient [facility] 2100 [id number] [place] 00:00:00 00:00:[address] 2021-04-12 2021-04-12 Outpatient DALIA JONES, ENCSAIMA ENCCLR [id number] ENCCLR 00:00:00 00:00:00 Gilmar RODNEY 2021-03-13 2021-03-20 Inpatient [facility] [id number] [place] 00:00:00 00:00:00 CORNEL [address] 2021-03-11 2021-03-11 Outpatient [facility] 2100 [id number] [place] 00:00:00 00:00:[address] 2021-03-11 2021-03-11 Outpatient [facility] 2100 [id number] [place] 00:00:00 00:00:[address] 2021-02-20 2021-02-20 Outpatient [facility] 2100 [id number] [place] 00:00:00 00:00:[address] 2021-02-20 2021-02-20 Outpatient [facility] 2100 [id number] [place] 00:00:00 00:00:[address] 2021-02-20 2021-02-20 Outpatient [facility] 2100 [id number] [place] 00:00:00 00:00:[address] 2021-02-20 2021-02-20 Outpatient [facility] [id number] [id number] [place] 00:00:00 00:00:[address] 2021-01-15 2021-01-15 Outpatient ROBBEN, [facility] [id number] [place] 00:00:00 00:00:00 SRAVANTHISUSHANTER [address] 2020-12-25 2020-12-25 Outpatient [facility] [id number] [place] 00:00:00 00:00:[address] 2020-10-05 2020-10-05 Outpatient PARK DEBBI [facility] 2100 [id number] [place] 00:00:00 00:00:[address] 2020-10-05 2020-10-05 Outpatient PARK, DEBBI [facility] 2100 [id number] [place] 00:00:00 00:00:[address] 2020-08-03 2020-08-03 Outpatient PARK, DEBBI [facility] 2100 [id number] [place] 00:00:00 00:00:[address] 2020-08-03 2020-08-03 Outpatient [facility], [facility] 2100 [id number] [place] 00:00:00 00:00:[address] 2020-06-12 2020-06-12 Outpatient PARK, [facility] 2100 [id number] [place] 00:00:00 00:00:[address] 2020-06-12 2020-06-12 Outpatient [facility] [id number] [id number] [place] 00:00:00 00:00:[address] 2020-05-31 2020-06-03 Inpatient PARK, [facility] 021 [id number] [place] 00:00:00 00:00:[address] 2020-05-28 2020-05-28 Outpatient PARK, DEBBI [facility] [id number] [id number] [place] 00:00:00 00:00:[address] 2020-05-25 2020-05-25 [facility] 2100 [id number] [place] 00:00:00 00:00:[address] 2020-05-25 2020-05-25 Outpatient DEBBI COPPOLA [facility] [id number] [id number] [place] 00:00:00 00:00:[address] 2020-04-18 2020-04-18 Outpatient [facility] 2100 [id number] [place] 00:00:00 00:00:[address] 2020-03-13 2020-03-13 Outpatient [facility], [facility] 2100 [id number] [place] 00:00:00 00:00:[address] 2020-03-13 2020-03-13 Outpatient PARK, [facility] 2100 [id number] [place] 00:00:00 00:00:[address] 2020-03-13 2020-03-13 Outpatient [facility], [facility] 2100 [id number] [place] 00:00:00 00:00:[address] 2020-02-07 2020-02-07 Outpatient PARK, [facility] 2100 [id number] [place] 00:00:00 00:00:[address] 2020-02-07 2020-02-07 Outpatient [facility], [facility] 2100 [id number] [place] 00:00:00 00:00:[address] 2020-01-26 2020-01-26 Outpatient [facility], [facility] 2100 [id number] [place] 00:00:00 00:00:[address] 2020-01-16 2020-01-21 Inpatient [facility] [id number] [place] 00:00:00 00:00:00 MARGRET [address] 2020-01-06 2020-01-06 Outpatient [facility], [facility] 2100 [id number] [place] 00:00:00 00:00:[address] 2020-01-06 2020-01-06 Outpatient [facility], [facility] 2100 [id number] [place] 00:00:00 00:00:[address] 2020-01-06 2020-01-06 Outpatient PARK, [facility] 2100 [id number] [place] 00:00:00 00:00:[address] 2020-01-06 2020-01-06 Outpatient [facility], [facility] 2100 [id number] [place] 00:00:00 00:00:[address] 2020-01-06 2020-01-06 Outpatient [facility], [facility] 2100 [id number] [place] 00:00:00 00:00:[address] 2020-01-06 2020-01-06 Outpatient [facility], [facility] 2100 [id number] [place] 00:00:00 00:00:[address] 2020-01-06 2020-01-06 Outpatient DEBBI COPPOLA [facility] 2099 [id number] [place] 00:00:00 00:00:[address] 2020-01-06 2020-01-06 Outpatient DEBBI COPPOLA [facility] [id number] [place] 00:00:00 00:00:[address] 2020-01-06 2020-01-06 Outpatient DEBBI COPPOLA [facility] [id number] [id number] [place] 00:00:00 00:00:[address] 2016-02-07 2016-02-07 Outpatient FRANCISCA [facility] 018 [id number] [place] 00:00:00 00:00:00 ELIO [address] 2015-12-18 2015-12-19 Inpatient FABY [facility] [id number] [place] 00:00:00 00:00:00 JACKI Zelaya [facility] 2015-12-06 2015-12-06 Outpatient FABY [facility] [id number] [place] 00:00:00 00:00:00 JACKI [address] [facility] Results Test Description Test Time Test Comments Results Result Comments Source SARS-CoV-2 (COVID-19) RNA [Presence] in Respiratory sp ecimen by 2021-03-14 00:39:35 BIMAL with probe detection Test Item Value Reference Range Interpretation Comme nts SARS-CoV-2 (COVID-19) RNA [Presence] in Respiratory Not detected No t-Detected specimen by BIMAL with probe detection (test code = 44264-0) Whether patient is employed in a healthcare setting (test code = 77297-8) Whether the patient has symptoms related to condition of interest (test code = 22263-8) Patient was hospitalized because of this condition (test code = 05813-0) Whether the patient was admitted to intensive care unit (ICU) for condition of interest (test code = 09369-6) Whether patient resides in a congregate care setting (test code = 57605-0) ANG, NEPHROSTOMY TUBE CHANGE, [id number] 11:34:00Reason for Exam:- >HYDRONEPHROSIS, UNSPECIFIED HYDRONEPHROSIS TYPE (N13.30) [facility] : 1940 Sex: FAddendum BeginsREPORT STATUS:A ADDENDUM:Please note that the amount andtype of contrast administered was not correct. Instead Isovue 300 was administered and 40 mL total was given. Signed: Sukhi Oakes MDReport Verified Date/Time: 01/10/2021 11:34:23 Reading Location: [place] [address] Angio Body Reading RoomAddendum EndsFINAL REPORT PROCEDURE: Genitourinary catheter exchange Procedural PersonnelAttending physician(s): Yamila Peguero physician(s): NoneResident physician(s): NoneAdvanced practice provider(s): None Pre-procedure diagnosis: Indwelling right percutaneous nephrostomy and left percutaneous nephroureteral tubesPost-procedure diagnosis: SameIndication: Routine scheduled exchangeAdditional clinical history: None Complications: No immediate complications. 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 Plan: Successful exchange. Routine exchange every 8-10 weeks as long asurinary diversion is required. PROCEDU RE SUMMARY- Target organ: Bilateral [place] kidneys- Antegrade nephrostogram(s) via the existing access- [...] wire and position was confirmed with contrast injection.Pre- existing genitourinary catheter: 12 Egyptian multipurpose drainage catheterGenitourinary catheter(s) placed: 12 Egyptian multipurpose drainage catheter Findings: Complete obstruction of the distal right ureter, unable to be crossed. Successful right percutaneous nephrostomy tube exchange.External catheter securement: Non-absorbable suture Left genitourinary catheter exchangeLocal anesthesia was administered. Initial nephrostogram was performed. A wire was placed through the existing tube and it was removed. The new tube was advanced over the wire and position was confirmed with contrast injection.Pre- existing genitourinary catheter: 10 Egyptian 22 cm nephroureteral catheterGenitourinary catheter(s) placed: 10 Egyptian 22 cm no catheter Findings: Successful exchangeExternal catheter securement: None Additional genitourinary systeminterventionGenitourinary intervention: NoneLocation of intervention: Not applicableDevice used: NotapplicableDescription of intervention: Not applicablePost-intervention findings: Not applicable Contr astContrast agent: Omnipaque 300Contrast volume (mL): 20 Radiation [...] MDReport Verified Date/Time: 01/09/2021 16:21:59 Reading Location: [place] [address] Angio Body Reading Room Nephrosotomy Tube Change [id number] 16:21:00Interface, External Ris In - 01/10/2021 11:36 AM CSTAddendum BeginsREPORT STATUS:A ADDENDUM:Please note that the amount and type of contrast administered was not correct. InsteadIsovue 300 was administered and 40 mL total was given. Signed: Sukhi Oakes MDReport Verified Date/Time: 01/10/2021 11:34:23 Reading Location: [place] [address] Angio Body Reading RoomAddendum EndsFINAL REPORT PROCEDURE: Genitourinary catheter exchange Procedural PersonnelAttending physician(s): Yamila Peguero physician(s): NoneResident physician(s): NoneAdvanced practice provider(s): None Pre-procedure diagnosis: Indwelling right percutaneous nephrostomy and left percutaneous nephroureteral tubesPost-procedure diagnosis: SameIndication: Routine scheduled exchangeAdditionalclinical history: None Complications: No immediate complications. 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 Plan: Successful exchange. Routine exchange every 8-10 weeks as long as urinary diversion is required. PROCEDURE SUMMARY- Target organ: Bilateral [place] kidneys- Antegrade nephrostogram(s) via the existing access- Left nephroureteral and right nephrostomy tube exchange- Additional procedure(s): None PROCEDURE DETAILS: Pre-procedureConsent: Informed consent for theprocedure including risks, benefits and alternatives was obtained and time- out was performed prior to the procedure.Preparation: The site was prepared and draped using maximal sterile barrier techniqueincluding cutaneous antisepsis. Anesthesia/sedationLevel of anesthesia/sedation: No sedationAnesthesia/sedation [...] confirmed with contrast injection.Pre-existing genitourinary catheter: 12 Egyptian multipurpose drainage catheterGenitourinary catheter(s) placed: 12 Egyptian multipurpose drainage catheter Findings: Complete obstruction of [...] confirmed with contrast injection.Pre-existing genitourinary catheter: 10 Egyptian 22 cm nephroureteral catheterGenitourinary catheter(s) placed: 10 Egyptian 22 cm no catheter Findings: Successful exchangeExternal [...] than 10Standardized report: [email or web address] AttestationSigner name: MARKUS Strauss attest that I was present for the entire procedure. I reviewed the stored images and agree with the report as written. Signed: Sukhi Oakes MDReport Verified Date/Time: 01/09/2021 16:21:59 Reading Location: [place] [address] Angio Body Reading Room [facility], PERC, EXTERNAL [id number] 17:38:00[facility] 1940 Sex: FFINAL REPORT Left percutaneous nephroureterostomy and right percutaneous nephrostomy catheter exchange History: Chronic renal obstruction, patient presents for routine exchange of bilateral catheters Modality: Fluoroscopy Sedation: None. Drain Tile Machine Operator: Gerald Baeza MD. Sales And Service Agent: MD Merrick (fellow) Approach: Via indwelling bilateral [...] removed over wire and a new 12 Egyptian nephrostomy catheter was advanced over wire with pigtail formed within the right renal pelvis. Contrast injection confirmed positioning. The catheter spaces skin with silk suture.A sterile dressing was applied. Contrast was injected via the indwelling right percutaneous nephroureteral ostomy catheter confirming intraluminal position. 2% lidocaine was used for local anesthesia. The existing catheter was cut and a 0.035 wire advanced through the catheter and coiled within the urinary bladder. The existing catheter is was removed and a new 10.2 Egyptian by 22 cm nephroureteral ureterostomy catheter was advanced over wire with distal tip terminating within the urinary bladder and proximal pigtail within the left renal pelvis. Contrast injection confirmed positioning. The catheterspaces skin with silk suture. A sterile dressing was applied. The patient tolerated the procedure without immediate complication. Impression: Successfulfluoroscopic guided right percutaneous nephrostomy and left percutaneous nephroureterostomy exchangeas detailed above. Signed: Gerald Baeza MDReport Verified Date/Time: 10/10/2020 17:38:32 Reading Location: [place] [address] Angio Body Reading Room IR Percutaneous Nephrostomy - Ext. Drain [id number] 17:38:00Interface, External Ris In - 10/10/2020 5:40 PM CSTFINAL REPORT Left percutaneous nephroureterostomy and right percutaneous nephrostomy catheter exchange History: Chronic renal obstruction, patient presents for routine exchange of bilateral catheters Modality: Fluoroscopy Sedation: None. Drain Tile Machine Operator: Gerald Baeza MD. Sales And Service Agent: MD Merrick (fellow) Approach: Via indwelling bilateral nephrostomy catheters Estimated blood loss: < 5 cc. Specimen: None. Fluoroscopy Time: 4.2 mi n.Reference Air Kerma (Ka, r): 43.7 mGy. Technique: [...] removed over wire and a new 12 Egyptian nephrostomy catheter was advanced over wire with pigtail formed within the right renal pelvis. Contrast injection confirmed positioning. The catheter spaces skin with silk suture. A sterile dressing was applied. Contrast was injected via the indwelling right percutaneous nephroureteral ostomy catheter confirming intraluminal position. 2% lidocaine was used for local anesthesia. The existing catheter was cut and a 0.035 wire advancedthrough the catheter and coiled within the urinary bladder. The existing catheter is was removed celina new 10.2 Egyptian by 22 cm nephroureteral ureterostomy catheter was advanced over wire with distal tip terminating within the urinary bladder and proximal pigtail within the left renal pelvis. Contrastinjection confirmed positioning. The catheter spaces skin with silk suture. A sterile dressing was applied. The patient tolerated the procedure without immediate complication. Impression: Successful fluoroscopic guided right percutaneous nephrostomy andleft percutaneous nephroureterostomy exchange as detailed above. Signed: Gerald Baeza MDReport Verified Date/Time: 10/10/2020 17:38:32 Reading Location: [place] [address] Angio Body Reading Room [facility] MedicineProthrombin time/[id number] 11:04:00 Test Item Value Reference Interpretation Comments Range Protime (test code = 13.8 See_Comment [Autom ated 5902-2) message] The system which generated this result transmitted reference range : 11.9 - 14.2 seconds. The reference range was not used to interpret this result as normal/abnormal . INR (test code = 1.09 See_Comment [Automated 6301-6) message] The system which generated this result transmitted reference range : <=5.90. The reference range was not used to interpret this result as normal/abnormal . EDIL (test code = Effective 03/30/2019: EDIL) PT Reference Range ChangeNew: 11.9-14.2 Previous: 11.7-14.7 RECOMMENDED COUMADIN/WARFARIN INR THERAPY RANGESSTANDARD DOSE: 2.0-3.0 Includes: PROPHYLAXIS for venous thrombosis, systemic embolization; TREATMENT for venous thrombosis and/or pulmonary embolus.HIGH RISK: Target INR is 2.5-3.5 for patients wiht mechanical heart valves. Lab Interpretation Normal (test code = 92268-0) [facility]/[id number] 11:04:00 Test Item Value Reference Range Interpretation [...] for patients wiht mechanical heart valves.Basic Metabolic [id number] 11:03:00 Test Item Value Reference Range Interpretation Comments Sodium (test code = 138 meq/L 109-035 3450-2) Potassium (test code = 4.6 meq/L 3.5-5.1 2823-3) Chloride (test code = 106 meq/L 98-107 2075-0) CO2 (test code = 25 meq/L 22-29 2028-9) BUN (test code = 29 mg/dL 7-21 H 3094-0) Creatinine (test code 1.00 mg/dL 0.57-1.25 = 2160-0) Glucose (test code = 90 mg/dL 70-105 2345-7) Calcium (test code = 8.5 mg/dL 8.4-10.2 42424-6) EGFR (test code = 54 mL/min/1.73 [place] [address]-4) NOT ACCURATE CREATININE CLEARANCE IN PREDICTING GLOMERULAR FILTRATION RATE . ESTIMATED GFR I S NOT APPLICABLE FOR DIALYSIS PATIENTS. EDIL (test code = EDIL) Community Service Officer ID - REID C Lab Interpretation Abnormal (test code = 84407-3) [facility] [id number] 11:03:00 Test Item Value Reference Range Interpretation [...] S NOT APPLICABLE FOR DIALYSIS PATIEN TS. Community Service Officer ID - REID [id number] 11:01:00 Test Item Value Reference Range Interpretation Comments PTT (test code = 70334-2) 34.1 See_Comment [ Automated message] The system [employer] generated this result transmitted ref erence range: 22.5 - 3 6.0 seconds. The re ference range was not u sed to interpret this result as normal/abnor mal. Lab Interpretation (test Normal code = 40868-7) [facility]00 Test Item Value Reference Range Interpretation Comments PARTIAL THROMBOPLASTIN TIME 34.1 seconds 22.5-36.0 (BEAKER) (test code = 760) CBC with platelet count + automated [id number] 10:55:00 Test Item Value Reference Range Interpretation Comments WBC (test code = 6690-2) 4.6 See_Comment [A utomated message] The system [employer] generated this result transmitted ref erence range: 3.5 - 10 .5 K/L. The refe rence range was not u sed to interpret this result as normal/abnor mal. RBC (test code = 789-8) 3.32 See_Comment L [Au tomated message] The system [employer] generated this result transmitted ref erence range: 3.93 - 5 .22 M/L. The refe rence range was not u sed to interpret this result as normal/abnor mal. MCHC (test code = 786-4) 30.5 See_Comment L [A utomated message] The system [employer] generated this result transmitted ref erence range: [...] See_Comment [Aut omated message] 777-3) The system [employer] generated this result transmitted ref erence range: 150 - 45 0 K/CU MM. The referen ce range was not u sed to interpret this result as normal/abnor mal. MPV (test code = 9.9 fL 9.4-12.3 41092-0) nRBC (test code = 413) 0 See_Comment [Aut omated message] The system [employer] generated this result transmitted ref erence range: [...] See_Comment [Aut omated message] 670) The system [employer] generated this result transmitted ref erence range: 1.56 - 6 .13 K/L. The refe rence range was not u sed to interpret this result as normal/abnor mal. # Lymphs (test code = 0.62 See_Comment L [Auto mated message] 414) The system [employer] generated this result transmitted ref erence range: 1.18 - 3 .74 K/L. The refe rence range was not u sed to interpret this result as normal/abnor mal. # Monos (test code = 0.61 See_Comment H [Autom ated message] 415) The system [employer] generated this result transmitted ref erence range: 0.24 - 0 .36 K/L. The refe rence range was not u sed to interpret this result as normal/abnor mal. # Eos (test code = 416) 0.15 See_Comment [Au tomated message] The system [employer] generated this result transmitted ref erence range: 0.04 - 0 .36 K/L. The refe rence range was not u sed to interpret this result as normal/abnor mal. # Baso (test code = 417) 0.01 See_Comment [A utomated message] The system [employer] generated this result transmitted ref erence range: 0.01 - 0 .08 K/L. The refe rence range was not u sed to interpret this result as normal/abnor mal. Immature 0 % 0-1 Granulocytes-Relative (test code = 2801) Lab Interpretation (test Abnormal code = 64253-3) [facility] W/PLT COUNT & AUTO [id number] 10:55:00 Test Item Value Reference Range Interpretation [...] code = 2801) ANG, NEPHROSTOMY, PERC, INTERNAL [id number] 17:28:00Reason for Exam:->N13.30FINAL REPORT History: Chronic renal [...] and removed over wires. A new 12 Egyptian right external percutaneous nephrostomy catheter was placed over the wire through the existing tract and into position within the right renal pelvis under fluoroscopic guidance. Repeat contrast injection was performed to confirm position of this catheter. A new 10 Egyptian 22 cm left nephroureterostomy catheter was then [...] MDReport Verified Date/Time: 07/18/2020 17:28:56 Reading Location: [place] [id number] Angio Body Reading Room IR Percutaneous Nephrostomy - Int. Drain [id number] 17:28:00Interface, External Ris In - 07/18/2020 5:31 [...] and removed over wires. A new 12 Egyptian right external percutaneous nephrostomy catheter was placed over the wire through the existing tract and into position w ithin the right renal pelvis under fluoroscopic guidance. Repeat contrast injection was performed toconfirm position of this catheter. A new 10 Egyptian 22 cm left nephroureterostomy catheter was then [...] MDReport Verified Date/Time: 07/18/2020 17:28:56 Reading Location: [place] [address] Angio Body Reading Room [facility] MedicineAPTT2020-09-14 11:08:00 Test Item Value Reference Range Interpretation Comments PARTIAL THROMBOPLASTIN TIME 34.3 seconds 22.5-36.0 (BEAKER) (test code = 760) PROTHROMBIN TIME/[id number] 11:07:00 Test Item Value Reference Range Interpretation [...] mechanical heart valves.CBC W/PLT COUNT & AUTO [id number] 10:55:00 Test Item Value Reference Range Interpretation [...] 0-1 PERCENT (BEAKER) (test code = 2801) SARS-CoV-2 (COVID-19) RNA [Presence] in Respiratory specimen by BIMAL with probe [id number] 17:39:26 Test Item Value Reference Range Interpretation Comments SARS-CoV-2 (COVID-19) RNA Not detected Not-Detected [Presence] in Respiratory specimen by BIMAL with probe detection (test code = 18712-8) ANG, NEPHROSTOMY TUBE CHANGE, [id number] 20:05:00Reason for Exam:->N13.30FINAL REPORT History: Chronic renal [...] over the same with a new 10.2 Egyptian nephroureteral stent using fluoroscopic guidance and the existingaccess site. Repeat contrast injection was performed to confirm position of the new catheter. The patient's right external nephrostomy catheter was removed and replaced over a VM Enterprisesson wire with a similar size 12 Egyptian external nephrostomy catheter again using the existing access site and fluoroscopicguidance. Once placed, position of the new catheter was confirmed using a small contrast injection un tyrell fluoroscopy. Both catheters were placed to external [...] as (Ka,r): 74 mGy Signed: Leslie العراقي [facility]ep[facility] Verified Date/Time: 04/04/2020 20:05:30 Reading Location: [place] [address] Angio Body Reading Room [id number] 12:53:00 Test Item Value Reference Range Interpretation Comments PARTIAL THROMBOPLASTIN TIME 34.5 seconds 22.5-36.0 (BEAKER) (test code = 760) PROTHROMBIN TIME/[id number] 12:52:00 Test Item Value Reference Range Interpretation [...] mechanical heart valves.CBC W/PLT COUNT & AUTO [id number] 12:47:00 Test Item Value Reference Range Interpretation [...] code = 2801) ANG, NEPHROSTOMY TUBE CHANGE, [id number] 16:06:00Reason for Exam:->uti w/o hematuria site unspecified, hydrohephrosisFINAL REPORT PROCEDURE: Percutaneous nephrostomy catheter placement CLINICAL H ISTORY: uti w/o hematuria site unspecified, hydronephrosis unspecified PULMONOLOGIST INTENSIVIST: Damian Quiros DO, JD ANESTHESIA: Local lidocaine. DEVICE: On the right 12 Egyptian pigtail catheter, on the left 10.2 Egyptian 22 cm nephroureteral stent DOSE INFORMATION - [...] MDReport Verified Date/Time: 12/26/2019 16:06:22 Reading Location: [place] [address] Angio Body Reading Room ANG, NEPHROSTOMY TUBE CHANGE, [id number] 16:06:00Reason for Exam:->uti w/o hematuria site unspecified, hydronephrosis unspecifiedFINAL REPORT PROCEDURE: Percutaneous nephrostomy catheter placement CLINICAL HISTORY: uti w/o hematuria site unspecified, hydronephrosis unspecified PULMONOLOGIST INTENSIVIST: Damian Quiros DO, JD ANESTHESIA: Local lidocaine. DEVICE: On the right 12 Egyptian pigtail catheter, on the left 10.2 Egyptian 22 cm nephroureteral stent DOSE INFORMATION - [...] MDReport Verified Date/Time: 12/26/2019 16:06:22 Reading Location: [place] [address] Angio Body Reading Room ANG, NEPHROSTOMY TUBE CHANGE, [id number] 12:12:00Reason for Exam:->Chronic bilateral nephrostomy tubes for bilateral ureteral obstruction.FINAL REPORT Fluoroscopic guided right nephrostomy and left nephroureterostomy catheter exchange. History: Chronic ureteral obstruction Modality: Fluoroscopy Sedation: None Drain Tile Machine Operator: Tutu Kruse MD Sales And Service Agent: None. Approach: Via indwelling bilateral catheters Estimated [...] sterile gown for performing radiologist and scrub techno logist. 1% lidocaine was used for local anesthesia. Contrast was injected via the indwelling left percutaneous nephroureterostomy catheter confirming intraluminal position. The existing catheter was cut. A 0.035 wire was advanced through the existing catheter into the urinary bladder. The existing catheter was removed over wire. A new 10.2 Egyptian by 22 cm nephroureterostomy catheter was advanced [...] theexisting catheter was removed. A new 12 Egyptian nephrostomy catheter was advanced over wire with pigtail formed within the right renal pelvis. No external suture was used per patient's preference. A sterile dressing was applied. The patient tolerated the procedure without immediate complication. Impression: Successful fluoroscopic guided left percutaneous nephroureterostomy and right sided percutaneous nephrostomy catheter exchange. Signed: Tutu KruseMDReport Verified Date/Time: 10/11/2019 12:12:41 Reading Location: [place] [address] Angio Body Reading Room [id number] 10:56:00 Test Item Value Reference Range Interpretation Comments PARTIAL THROMBOPLASTIN TIME 43.6 seconds 22.5-36.0 H (BEAKER) (test code = 760) PROTHROMBIN TIME/[id number] 10:55:00 Test Item Value Reference Range Interpretation [...] mechanical heart valves.CBC W/PLT COUNT & AUTO [id number] 10:48:00 Test Item Value Reference Range Interpretation [...] PERCENT (BEAKER) (test code = 2801) PROTHROMBIN TIME/[id number] 14:50:00 Test Item Value Reference Range Interpretation [...] for patients wiht mechanical heart valves.URINALYSIS W/ [id number] 14:42:00 Test Item Value Reference Range Interpretation [...] 1585) SOURCE(BEAKER) (test code Urine, Nephrostomy = 3485) BASIC METABOLIC [id number] 14:37:00 Test Item Value Reference Range Interpretation [...] PATIEN TS. CBC W/PLT COUNT & AUTO [id number] 14:22:00 Test Item Value Reference Range Interpretation [...] code = 2801) RAD, ABDOMEN/KUB, 1 VIEW [id number] 18:36:00Reason for exam:->FLANK PAIN FINAL REPORT Abdomen. [...] MDReport Verified Date/Time: 08/15/2019 18:36:07 Reading Location: [address] Consult Reading Room , NEPHROSTOMY TUBE CHANGE, [id number] 18:18:00Reason for Exam:->hydronephrosisFINAL REPORT Procedure: Right percutaneous nephrostomy catheter exchange. Left percutaneous nephroureterostomy catheter exchange. History: Routine maintenance. . Drain Tile Machine Operator: Yaya Templeton M.D. Sales And Service Agent: None. Modality: Fluoroscopy. DOSE REDUCTION: The examination [...] local infiltration. Medicines: Not applicable Contrast medium: Shrtzf327, 30 cc. Estimated blood loss: < 5 [...] draped in the standard sterile fashion. A teaching pastor radiograph was performed showing the catheter to [...] immediate. Findings:As above. Impression:Successful fluoroscopic guided 12 Egyptian right nephrostomy catheter exchange and 10.2 Egyptian by 24 cm left nephroureteral stent exchange as described above. Further management dictated by the clinical scenario. The nephrostomycatheter should be exchanged at the latest in three months. Thank you for the opportunity to assist in the care of your patient. Signed: Yaya Templetoneport Verified Date/Time: 08/15/2019 18:18:25 Reading Location: [place] [address] Angio Body Reading Room CBC W/PLT COUNT & AUTO [id number] 17:21:00 Test Item Value Reference Range Interpretation [...] Received comment: User comments: Slide comments:BASIC METABOLIC [id number] 17:15:00 Test Item Value Reference Range Interpretation [...] DIALYSIS PATIEN TS. URINALYSIS W/ REFLEX URINE [id number] 17:12:00 Test Item Value Reference Range Interpretation [...] > /HPF SOURCE(BEAKER) (test code = 2795) [id number] 12:26:00 Test Item Value Reference Range Interpretation Comments MAGNESIUM (BEAKER) (test code = 1.8 mg/dL 1.6-2.6 627) BASIC METABOLIC [id number] 12:26:00 Test Item Value Reference Range Interpretation [...] DIALYSIS PATIEN TSMelvin MULLINS, NEPHROSTOMY TUBE CHANGE, [id number] 13:53:00Reason for Exam:- >hydronephrosis unspecifiedFINAL REPORT Fluoroscopic guided right nephrostomy and left nephroureterostomy catheter exchange. History: Chronic ureteral obstruction Modalit y: Fluoroscopy Sedation: None Drain Tile Machine Operator: Gerald Baeza MD. Sales And Service Agent: None. Approach: Via indwelling bilateral catheters Estimated [...] The Glidewire was exchanged over a 4 Egyptian Walsh catheter for a 0.035 inch Bentson wire. A new 10.2 Egyptian by 24 cm nephroureterostomy catheter was advanced [...] through the indwelling catheter. Subsequently, a 4 Egyptian Walsh catheter and 0.035 angled Glidewire was advanced alongside the catheter and access to the right renal pelvis was obtained. The existing catheter was rem mitchel. The Glidewire was exchanged for a 0.035 Bentson wire. A new 12 Egyptian nephrostomy catheter wasadvanced over wire with pigtail formed within the right renal pelvis. The catheter was fixed to the skin with silk suture. A sterile dressing was applied. The patient tolerated the procedure without immediate complication. Impression: Successful fluoroscopic guided left percutaneous nephroureterostomy and right sided percutaneous nephrostomy catheter exchange. Signed: Gerald Baeza MDReport Verified Date/Time: 06/02/2019 13:53:40 Reading Location: [place] [address] Angio Body Reading Room ANG, NEPHROSTOMY TUBE [...] was then cut and removed over a [employer] wire. A new 12 Egyptian external nephrostomy catheter was placed over the [...] removed over a wire. A new 10 Egyptian by 24 cm nephroureteral stent was placed [...] MDReport Verified Date/Time: 02/23/2019 19:15:22 Reading Location: [facility] B1 P048 Angio Body Reading Room BASI METABOLIC [id number] 11:18:00 Test Item Value Reference Range Interpretation [...] DIALYSIS PATIEN TS. MULLINS, NEPHROSTOMY TUBE CHANGE, [id number] 17:38:00Reason for Exam:->n13.30 FINAL REPORT Fluoroscopic guided right nephrostomy tube and left nephroureterostomy catheter replacement, 11/25/2018. Clinical History: Ureteral obstruction. Modality: Fluoroscopy. Drain Tile Machine Operator: Jenny. Sales And Service Agent: Macario. Sedation: None. Estimated Blood Loss: Less [...] catheter was removed and a new 10.2 Egyptian x 24 cm nephrostomy catheter was advancedover the wire through the kidney until the tip was in the bladder. The wire was then removed, and the pigtail of the catheter was locked. The catheter was then secured onto the skin with 2-0 silk. A Be ntson wire was then advanced through the existing right-sided nephrostomy catheter and curled withinthe right renal pelvis. The old catheter was removed and a new 12 Egyptian drainage catheter was advanced over the wire into the right renal pelvis. The patient tolerated the procedure well, without immediate complications. The patient's vital signs remained stable throughout the procedure. Patient disposition: The patient was discharged from the department in stable condition. Impression:Successful and uncomplicated fluoroscopic guided right nephrostomy tube and left nephroureterostomy catheter replacement. Signed: Tray Alvarado [facility] Verified Date/Time: 11/25/2018 17:38:15 Reading Location: [place] [id number] Angio Body Reading Room 05:38 PMANG, NEPHROSTOMY TUBE CHANGE, LEFT 2018-08-19 14:10:00Reason for Exam:->hydronephrosis unspecified hydronephrosis typeFINAL REPORT Right percutaneous nephrostomy and left percutaneous nephroureterostomy catheter exchange. History: Ureteral obstruction Modality: fluoroscopy. Sedation: None Drain Tile Machine Operator: Gerald Baeza MD. Sales And Service Agent: None. Approach: Lashonda Oakes (resident) Estimated blood [...] removed over wire and a new 12 Egyptian nephrostomy catheter was advanced over wire with [...] catheter was removed and a new 8.5 Egyptian by 24 cm nephroureterostomy catheter was advanced [...] Baeza Verified Date/Time: 08/19/2018 14:10:12 Reading Location: [place] [address] Angio Body Reading Room PT/APTT 2018-05-07 12:58:00 Test Item Value Reference Range Interpretation [...] for patients with mechanical heart valves.BASIC METABOLIC [id number] 12:19:00 Test Item Value Reference Range Interpretation [...] S NOT APPLICABLE FOR DIALYSIS PATIEN TS. [id number] 11:43:00 Test Item Value Reference Range Interpretation [...] = 2801) CLAU MULLINS/ FLUORO NEPH, TUBE [id number] 19:42:00FINAL REPORT Fluoroscopic guided bilateral nephrostomy tube exchange, 05/06/2018. Clinical History: Ureteral obstruction, clogged right PCN. Modality: Fluoroscopy. Drain Tile Machine Operator: Jenny. Sales And Service Agent: Biju. Sedation: None. Estimated Blood Loss: Less [...] catheter was removed and a new 8 Egyptian 24 cm nephroureterostomy catheter was advanced over the wire into the bladder. Pigtail was locked. Contrast was injected into the right PCN. A Glidewire was advanced through the catheter and curled within the right renal pelvis. The old catheter was removed and a new 12 Egyptian pigtail catheter was placed into the right [...] MDReport Verified Date/Time: 05/06/2018 19:42:30 Reading Location: [facility] P048 Angio Body Reading Room URINE [id number] 12:31:00 Test Item Value Reference Range Interpretation Comments CULTURE (BEAKER) (test >100,000 col/mL skin code = 1095) thomas ANG, NEPHROSTOMY TUBE CHANGE, [id number] 17:42:00Reason for exam:->Tube not drainingFINAL REPORT Right nephrostomy catheter exchange. History: Malfunction right nephrostomy catheter Modality: Fluoroscopy Sedation: None Drain Tile Machine Operator: Gerald Baeza MD. Sales And Service Agent: None. Approach: Right flank Estimated blood loss: [...] was removed over wire. A new 10.2 Egyptian nephrostomy catheter was advanced over wire with pigtail formed within the right renal pelvis. Contrast injection confirmed positioning. The catheter was fixed to the skin withsilk suture. A sterile dressing was applied. The patient tolerated the procedure well without immediate application. Impression: Successful right percutaneous nephrostomy catheter exchange. Signed: Gerald Baeza MDReport Verified Date/Time: 04/09/2018 17:42:07 Reading Location: [place] [address] Angio Body Reading Room URINALYSIS W/ [id number] 14:48:00 Test Item Value Reference Range Interpretation [...] 1582) SOURCE(BEAKER) (test code = Urine, [place] 9131) BASIC METABOLIC [id number] 14:16:00 Test Item Value Reference Range Interpretation [...] S NOT APPLICABLE FOR DIALYSIS PATIEN TS. [id number] 14:06:00 Test Item Value Reference Range Interpretation [...] code = 2801) ANG, NEPHROSTOMY TUBE CHANGE, [id number] 09:41:00Reason for exam:- >dysfunction nephrostomy tube on [...] removed over a wire. A new 10.2 Egyptian pigtail nephrostomy catheter was placed over the wire, t hrough the existing access tract and into position [...] Leslie العراقي Verified Date/Time: 03/15/2018 09:41:31 Reading Location:[facility] B1 P048 Angio Body Reading Room , NEPHROSTOMY TUBE CHANGE, LEFT 2018-02-24 16:05:00Reason for Exam:->n13.30FINAL REPORT Left percutaneous nephroureterostomy and right percutaneous nephrostomy catheter exchange. History: 77-year-old female with history of ureteral strictures presents for routine catheter exchange. Modality: FluoroscopySedation: None Drain Tile Machine Operator: Gerald Baeza MD. Sales And Service Agent: None. Approach: Bilateral flanks Estimated blood loss: [...] for performing radiologist and scrub technologist. A teaching pastor image images was obtained. Contrast was injected through the indwelling left percutaneous nephroureterostomy catheter confirming position. 2% lidocaine was used for local anesthesia. The indwelling catheter was cut and a 0.035 Bentson wire was advanced and coiled within the urinary bladder. The existing catheter was removed over wire and a new 8.5 Egyptian by 22 cm nephroureterostomy was advanced over [...] was removed thewire and a new 10.2 Egyptian pigtail catheter was advanced over wire with pigtail formed within the right renal pelvis. The catheter was fixed to the skin with silk suture and dressing was applied. The pa tient tolerated the procedure well without immediate complication. Impression: Successful fluoroscopic-guided left percutaneous nephroureterostomy and right percutaneous nephrostomy catheter exchange. Signed: Gerald Baeza MDReport Verified Date/Time: 02/24/2018 16:05:12 Reading Location: [place] [address] Angio Body Reading Room ANG, NEPHROSTOMY TUBE CHANGE, [id number] 16:05:00Reason for Exam:->n13.30FINAL REPORT Left percutaneous nephroureterostomy and right percutaneous nephrostomy catheter exchange. History: 77-year-old female with history of ureteral strictures presents for routine catheter exchange. Modality: FluoroscopySedation: None Drain Tile Machine Operator: Gerald Baeza MD. Sales And Service Agent: None. Approach: Bilateral flanks Estimated blood loss: <5 cc. Specimen: None. Fluoroscopy Time: 1.4 min.Reference Air Kerma (Ka, r): 17.0 mGy. Technique:Informed written consent was obtained. Discussion of risks, benefits, and alternatives were made with the patient. The patient expressed understanding and agreed to proceed. A universal timeout was per formed prior to starting the procedure. All elements maximal sterile barrier technique was utilizedfor this procedure, including utilization of sterile scrub solution for skin prep, a large sterile sheet to cover the areas of the patient that were not prepped, and hand hygiene, mask, head covering, and sterile gown for performing radiologist and scrub technologist. A teaching pastor image images was obtained. Contrast was injected through the indwelling left percutaneous nephroureterostomy catheter confirming position. 2% lidocaine was used for local anesthesia. The indwelling catheter was cut and a 0.035 Bentson wire was advanced and coiled within the urinary bladder. The existing catheter was removed over wire and a new 8.5 Egyptian by 22 cm nephroureterostomy was advanced over [...] was removed thewire and a new 10.2 Egyptian pigtail catheter was advanced over wire with pigtail formed within the right renal pelvis. The catheter was fixed to the skin with silk suture and dressing was applied. The patient tolerated the procedure well without immediate complication. Impression: Successful fluoroscopic-guided left percutaneous nephroureterostomy and right percutaneous nephrostomy catheter exchange. Signed: Gerald Baeza MDReport Verified Date/Time: 02/24/2018 16:05:12 Reading Location: [place] [address] Angio Body Reading Room ANG, NEPHROSTOMY TUBE CHANGE, [id number] 17:02:00Reason for exam:->ABDOMINAL PAIN, flank pain, blockageFINAL REPORT History: Malfunctioning right nephrostomy tube, renal obstruction. PROCEDURE: Following informed written consent, the patient's existing right external nephrostomy ca theter and surrounding skin site were prepped and [...] removed over a Bentsonwire. A new 10.2 Egyptian pigtail nephrostomy catheter was placed over the [...] MDReport Verified Date/Time: 12/29/2017 17:02:02 Reading Location: [facility] P048 Angio Body Reading Room URINE [id number] 12:00:00 Test Item Value Reference Range Interpretation Comments CULTURE (BEAKER) (test >100,000 col/mL skin code = 1095) thomas URINALYSIS W/ [id number] 10:15:00 Test Item Value Reference Range Interpretation Comments COLOR (BEAKER) (test code [place] = 470) CLARITY (BEAKER) (test Cloudy code [...] 1582) SOURCE(BEAKER) (test code Urine, Nephrostomy = 4911) BASIC METABOLIC [id number] 10:04:00 Test Item Value Reference Range Interpretation [...] 697) EGFR (BEAKER) (test 47 mL/min/1.73 ESTIMA AGUSTÍN GFR IS code = 1092) sq m NOT ACCURATE CREATININE CLEARANCE IN PREDICTING GLOMERULAR FILTRATION RATE . ESTIMATED GFR I S NOT APPLICABLE FOR DIALYSIS PATIEN TS. [id number] 09:53:00 Test Item Value Reference Range Interpretation [...] PERCENT (BEAKER) (test code = 2801) URINE [id number] 09:49:00 Test Item Value Reference Range Interpretation [...] >100,000 col/mL skin floraANG, NEPHROSTOMY TUBE CHANGE, [id number] 09:10:00Reason for exam:->ABDOMINAL PAINFINAL REPORT Fluoroscopic guided bilateral nephrostomy tube exchange ClinicalHistory: Abdominal pain, bilateral percutaneous nephrostomy catheter. Modality: Sonography and fluoroscopy Drain Tile Machine Operator: Star Brown MD. Sales And Service Agent: None.. SEDATION: None. Estimated Blood Loss: Less [...] catheter into the bladder. A new 8.5 Egyptian by 24 cm nephroureteral catheter was placed. [...] catheter into the bladder. A new 10 Egyptian pigtail catheter was placed. The wire was [...] Impression: 1. Uncomplicated exchange of left 8.5 Egyptian by 24 cm nephroureteral catheter. 2. Uncomplicated exchange of right 10 Egyptian percutaneous nephrostomy catheter. Signed: Star Brown MDReportVerified Date/Time: 12/14/2017 09:10:40 Reading Location: [facility] C013Y CT Body Reading Room , NEPHROSTOMY TUBE CHANGE, [id number] 09:10:00Reason for exam:- >ABDOMINAL PAINFINAL REPORT Fluoroscopic guided bilateral nephrostomy tube exchange ClinicalHistory: Abdominal pain, bilateral percutaneous nephrostomy catheter. Modality: Sonography and fluoroscopy Drain Tile Machine Operator: Star Brown MD. Sales And Service Agent: None.. SEDATION: None. Estimated Blood Loss: Less [...] catheter into the bladder. A new 8.5 Egyptian by 24 cm nephroureteral catheter was placed. [...] catheter into the bladder. A new 10 Egyptian pigtail catheter was placed. The wire was [...] Impression: 1. Uncomplicated exchange of left 8.5 Egyptian by 24 cm nephroureteral catheter. 2. Uncomplicated exchange of right 10 Egyptian percutaneous nephrostomy catheter. Signed: Star Brown MDReportVerified Date/Time: 12/14/2017 09:10:40 Reading Location: [facility] C013Y CT Body Reading Room CBC W/PLT COUNT & AUTO [id number] 15:37:00 Test Item Value Reference Range Interpretation [...] (BEAKER) (test code = 2801) BASIC METABOLIC [id number] 15:27:00 Test Item Value Reference Range Interpretation [...] APPLICABLE FOR DIALYSIS PATIEN TS. URINALYSIS W/ [id number] 15:22:00 Test Item Value Reference Range Interpretation [...] SOURCE(BEAKER) (test code Urine, Nephrostomy = 2795) HARPREET, NEPHROSTOMY TUBE CHANGE, [id number] 18:37:00Reason for Exam:->N13.30FINAL REPORT Procedure: Replacement of [...] guidewire and replaced with a fresh 8.5 Egyptian device with its tip in the renal pelvis. Approximately 80 cc of urine were removed. The left nephroureteral stent was removed over guidewire and a fresh 8.5 Egyptian by 24 cm nephroureteral stent placed with itstip in the bladder. Contrast was injected into each of the nephrostomy catheters confirming satisfactory positioning. CONCLUSION: Replacement of bilateral nephrostomy catheters. Signed: Tha Cheung MDReport Verified Date/Time: 11/19/2017 18:37:20 Reading Location: [place] [address] Angio Body Reading Room ANG, NEPHROSTOMY TUBE CHANGE, [id number] 15:09:00Reason for exam:->FLANK PAIN FINAL REPORT Exam: [...] tube was exchanged for a new 8.5 Egyptian nephrostomy tube with the tip advanced to [...] MDReport Verified Date/Time: 10/31/2017 15:09:40 Reading Location: [facility] P048 Angio Body Reading Room RAD, ABDOMEN, 2 OR MORE [id number] 14:41:00Reason for exam:->FLANK PAINFINAL REPORT Four views [...] MDReport Verified Date/Time: 10/31/2017 14:41:15 Reading Location: [facility] C013X Ortho Consult Reading Room BASIC METABOLIC [id number] 12:03:00 Test Item Value Reference Range Interpretation [...] PATIEN TS. CBC W/PLT COUNT & AUTO [id number] 11:30:00 Test Item Value Reference Range Interpretation [...] 0-1 PERCENT (BEAKER) (test code = 2801) [id number] 11:17:00 Test Item Value Reference Range Interpretation [...] 2.5-3.5 for patients with mechanical heart valves.BLOOD [id number] 11:00:00 Test Item Value Reference Range Interpretation Comments CULTURE (BEAKER) (test No growth in 5 days code = 1095) BLOOD [id number] 11:00:00 Test Item Value Reference Range Interpretation Comments CULTURE (BEAKER) (test No growth in 5 days code = 1095) URINE [id number] 10:04:00 Test Item Value Reference Range Interpretation Comments CULTURE (BEAKER) (test code = See comment 1095) >100,000 col/mL enteric organisms of >3 types including Pseudomonas species. No further workupperformed. Multiple organisms suggestive of colonization or contamination. Repeat collection recommended.URINE CULTURE 2017-08-07 13:38:00 Test Item Value Reference Range Interpretation Comments CULTURE (BEAKER) (test >100,000 col/mL skin code = 1095) thomas POCT-GLUCOSE [id number] 12:45:00 Test Item Value Reference Range Interpretation Comments POC-GLUCOSE METER 120 mg/dL 70-110 H TESTED AT [facility] 6720 (i.Meter) (test code = [place] 1538) [address] POCT-GLUCOSE [id number] 07:39:00 Test Item Value Reference Range Interpretation Comments POC-GLUCOSE METER 80 mg/dL 70-110 TESTED AT [facility] 6720 (BEAKER) (test code = [place] [address] 1538) CBC W/PLT COUNT & AUTO [id number] 06:22:00 Test Item Value Reference Range Interpretation [...] 0-1 PERCENT (BEAKER) (test code = 2801) [id number] 05:46:00 Test Item Value Reference Range Interpretation Comments MAGNESIUM (BEAKER) (test code = 1.4 mg/dL 1.6-2.6 L 627) BASIC METABOLIC [id number] 05:46:00 Test Item Value Reference Range Interpretation [...] NOT APPLICABLE FOR DIALYSIS PATIEN TS. POCT-GLUCOSE [id number] 21:07:00 Test Item Value Reference Range Interpretation Comments POC-GLUCOSE METER 170 mg/dL 70-110 H TESTED AT [facility] 6720 (BEAKER) (test code = [place] 1538) [address] ANG, NEPHROSTOMY TUBE CHANGE, [id number] 20:09:00FINAL REPORT Right nephrostomy catheter exchange. History: Malfunctioning right nephrostomy catheter Modality: Fluoroscopy Sedation: Moderate sedation was administered. 0.5 mg of Versed and 25 mcg of fentanyl IV was used for moderate sedation monitored under my direction. Total intra-service time of sedation was 30 minutes.The patient's vital signs were monitored throughout the procedure and recorded in the patient's medical record by the nurse. Drain Tile Machine Operator: Gerald Baeza MD. Sales And Service Agent: MD Ulysses (Fellow) Approach: Indwelling right nephrostomy [...] 2% lidocaine was used for local anesthesia. Debit Agent images were obtained demonstrating right n ephrostomy catheter retracted to a renal calyx. The indwelling tube was cut and a 0.035 wire was advanced into the right renal pelvis. The existing catheter was removed over wire and a new 8.5 Egyptian percutaneous nephrostomy catheter was advanced over wire with pigtail formed within the renal pelvis. There was immediate return of urine. Contrast injection confirmed position. The catheter was fixed tothe skin with silk suture. A sterile dressing was applied. The patient tolerated procedure well without immediate complication. IMPRESSION: Successful right percutaneous nephrostomy catheter exchange. Signed: Gerald Baeza MDReport Verified Date/Time: 08/06/2017 20:09:03 Reading Location: [place] [address] Angio Body Reading Room URINALYSIS W/ [id number] 19:55:00 Test Item Value Reference Range Interpretation [...] (test code Urine, Nephrostomy = 2795) POCT-GLUCOSE [id number] 12:58:00 Test Item Value Reference Range Interpretation Comments POC-GLUCOSE METER 131 mg/dL 70-110 H TESTED AT [place] [address] ([facility]) (test code = [facility] 1538) [address] HEMOGLOBIN [id number] 09:30:00 Test Item Value Reference Range Interpretation Comments HEMOGLOBIN A1C (BEAKER) (test code = 5.7 % 4.3-6.1 368) POCT-GLUCOSE [id number] 07:08:00 Test Item Value Reference Range Interpretation Comments POC-GLUCOSE METER 137 mg/dL 70-110 H TESTED AT [place] [address] ([facility]) (test code = [facility] 1538) [address] [id number] 04:00:00 Test Item Value Reference Range Interpretation [...] for patients with mechanical heart valves.U/S, RENAL, [id number] 03:58:00 Abdomen limited area? Add comment if [...] difficult to visualize. No nephroureterostomy tubing is vi sualized in the bladder. IMPRESSION: Severe right-sided hydronephrosis. [...] MDReport Verified Date/Time: 08/06/2017 03:58:39 Reading Location: [facility] C013X [facility] Consult Reading Room URINALYSIS W/ MICROSCOPIC 2017-08-06 01:01:00 Test Item Value Reference Range Interpretation [...] 1584) SOURCE(BEAKER) (test code = Urine, Voided 8254) [id number] 23:21:00 Test Item Value Reference Range Interpretation Comments LIPASE (BEAKER) (test code = 749) 31 U/L 8-78 [id number] 23:21:00 Test Item Value Reference Range Interpretation Comments AMYLASE (BEAKER) (test code = 349) 71 U/L 25-125 BASIC METABOLIC [id number] 23:21:00 Test Item Value Reference Range Interpretation [...] APPLICABLE FOR DIALYSIS PATIEN TS. HEPATIC FUNCTION [id number] 23:21:00 Test Item Value Reference Range Interpretation [...] 6-55 347) CBC W/PLT COUNT & AUTO [id number] 23:15:00 Test Item Value Reference Range Interpretation [...] code = 2801) ANG, NEPHROSTOMY TUBE CHANGE, [id number] 11:25:00Reason for exam:->BACK PAINReason for exam:->FINAL REPORT Exchange of right percutaneous nephrostomy tube and left percutaneous nephroureteral stent. History: Back pain. Patient presented to the emergency department with a decreased drainage from the right nephrostomy catheter. Modality: Fluoroscopy Sedation: None Drain Tile Machine Operator: Star Georges MD. Sales And Service Agent: None. Approach: ] Is approximately catheter and [...] exchanged over guidewire for a new 8.5 Egyptian nephrostomy catheter. After t he new catheter was placed contrast was injected which confirmed proper positioning. The catheter isin superior the patient's skin with 2-0 silk and connected to gravity drainage bag. The left nephroureteral stent was then exchanged over guidewire for a new 8.5 Egyptian by 22 cm nephroureteral stent. The distal [...] percutaneous left nephroureteral stent. Signed: Star Georges [facility] Ver[facility] Date/Time: 07/08/2017 11:25:07 Reading Location: [facility] P048 Angio Body Reading Room URINALYSIS W/ [id number] 09:16:00 Test Item Value Reference Range Interpretation [...] 516) SOURCE(BEAKER) (test code Urine, Nephrostomy = 0595) CBC W/PLT COUNT & AUTO [id number] 08:56:00 Test Item Value Reference Range Interpretation [...] (BEAKER) (test code = 2801) BASIC METABOLIC [id number] 08:48:00 Test Item Value Reference Range Interpretation [...] NOT APPLICABLE FOR DIALYSIS PATIEN TS. URINE [id number] 08:09:00 Test Item Value Reference Interpretation Comments [...] (test S code = 13) URINALYSIS W/ [id number] 10:28:00 Test Item Value Reference Range Interpretation [...] code Urine, Nephrostomy = 2795) BASIC METABOLIC [id number] 10:18:00 Test Item Value Reference Range Interpretation [...] PATIEN TS. CBC W/PLT COUNT & AUTO [id number] 10:12:00 Test Item Value Reference Range Interpretation [...] K/ L 0.00-0.20 (test code = 417) 0.00PT/[id number] 10:12:00 Test Item Value Reference Range Interpretation [...] 2.5-3.5 for patients with mechanical heart valves.POCT-GLUCOSE [id number] 13:22:00 Test Item Value Reference Range Interpretation Comments POC-GLUCOSE METER 136 mg/dL 70-110 H TESTED AT [facility] 67 ([facility]) (test code = AMIE Rodriguez [facility] 1538) [address] POCT-GLUCOSE [id number] 07:56:00 Test Item Value Reference Range Interpretation Comments POC-GLUCOSE METER 185 mg/dL 70-110 H TESTED AT [place] [address] ([facility]) (test code = [facility] Jennifer [facility] 1538) [address] HEMOGLOBIN AND [id number] 06:36:00 Test Item Value Reference Range Interpretation Comments HEMOGLOBIN (BEAKER) (test code = 9.1 GM/DL 12.0-15.0 L 410) HEMATOCRIT (BEAKER) (test code = 29.3 % 36.0-45.0 L 411) BASIC METABOLIC [id number] 06:21:00 Test Item Value Reference Range Interpretation [...] S NOT APPLICABLE FOR DIALYSIS PATIEN TS. [id number] 06:05:00 Test Item Value Reference Range Interpretation [...] 2.5-3.5 for patients with mechanical heart valves.POCT-GLUCOSE [id number] 20:59:00 Test Item Value Reference Range Interpretation Comments POC-GLUCOSE METER 139 mg/dL 70-110 H TESTED AT [place] [address] ([facility]) (test code = [facility] 1538) [address] POCT-GLUCOSE [id number] 17:25:00 Test Item Value Reference Range Interpretation Comments POC-GLUCOSE METER 213 mg/dL 70-110 H TESTED AT [place] [address] ([facility]) (test code = [facility] 1538) [address] BASIC METABOLIC [id number] 15:09:00 Test Item Value Reference Range Interpretation [...] NOT APPLICABLE FOR DIALYSIS PATIEN TS. PROTHROMBIN [id number] 14:53:00 Test Item Value Reference Range Interpretation Comments PROTIME (BEAKER) (test code = 15.6 seconds 11.7-14.7 H 759) INR (BEAKER) (test code = 370) 1.3 <=5.9 RECOMMENDED COUMADIN/WARFARIN INR THERAPY RANGESSTANDARD DOSE: 2.0 - 3.0 Includes: PROPHYLAXIS forvenous thrombosis, systemic embolization; TREATMENT for venous thrombosis and/or pulmonary embolus.HIGH RISK: Target INR is 2.5-3.5 for patients with mechanical heart valves.HEMOGLOBIN AND [id number] 14:50:00 Test Item Value Reference Range Interpretation Comments HEMOGLOBIN (BEAKER) (test code = 10.4 GM/DL 12.0-15.0 L 410) HEMATOCRIT (BEAKER) (test code = 32.6 % 36.0-45.0 L 411) CBC W/PLT COUNT & AUTO [id number] 12:10:00 Test Item Value Reference Range Interpretation [...] K/ L 0.00-0.20 (test code = 417) [id number] 11:59:00 Test Item Value Reference Range Interpretation Comments SODIUM (BEAKER) (test code = 381) 141 meq/L 136-145 POTASSIUM (BEAKER) (test code = 3.7 meq/L 3.5-5.1 379) CHLORIDE (BEAKER) (test code = 382) 107 meq/L 98-107 CO2 (BEAKER) (test code = 355) 24 meq/L 22-29 BUN AND [id number] 11:53:00 Test Item Value Reference Range Interpretation [...] NOT APPLICABLE FOR DIALYSIS PATIEN TS. POCT-GLUCOSE [id number] 10:51:00 Test Item Value Reference Range Interpretation Comments POC-GLUCOSE METER 52 mg/dL 70-110 L Notified Jennifer Schafer MD/TESTED AT ([facility]) (test [facility] = [facility] [address] [address]) [facility] [phone]
[2021-05-23 21:24] LABS: Absolute Lymphocytes (CBC) 0.2 K/uL (0.7-4.9); Basophils % 0.2 % (0-1.3); Lymphocytes % 1.1 % (15.3-44.8); MPV 7.4 fL (7.6-11.3)
[2021-05-23 21:38] LABS: Protime INR 1.25
[2021-05-23] MEDS ORDERED: ACETAMINOPHEN 500 MG TAB ONE (21:45)
[2021-05-23] MEDS ORDERED: NA CHLORIDE 0.9% 1,000 ML ONE (21:45)
[2021-05-23 21:46] LABS: Blood Morphology Comment NOT SEEN (NOT SEEN); Platelet Estimate ADEQ; White Blood Cell Scan OK (OK)
--- NOTE | 2021-05-23 21:49 | RAD REPORT ---
EXAM DESCRIPTION: Bhavik Single View05/23/2021 9:42 pm CLINICAL HISTORY: Palpitations COMPARISON: 2018 FINDINGS: The lungs appear clear of acute infiltrate. The heart is moderately enlarged IMPRESSION: No acute abnormalities displayed
--- NOTE | 2021-05-23 21:51 | RAD REPORT ---
EXAM DESCRIPTION: RAD - Knee Right 2 View - 05/23/2021 9:42 pm CLINICAL HISTORY: Right knee pain and swelling FINDINGS: Revision of a right knee arthroplasty. Rods have placed into femur tibia. Density within t he joint space presumably normal postsurgical change and should be correlated clinically. No fracture or dislocation. Diffuse edema within the subcutaneous tissues may indicate a cellulitis. If clinically indicated indicated further evaluation with CT could be obtained
[2021-05-23 22:13] LABS: Bilirubin Direct 0.2 mg/dL (0-0.2); Bilirubin Total 0.4 mg/dL (0.2-1.0); CKMB Creatine Kinase MB 1.9 ng/mL (1.0-3.6); Potassium 3.6 mmol/L (3.5-5.1); Protein, Total 7.1 g/dL (6.4-8.2); Troponin (Emerg Dept Use Only) 0.02 ng/mL (0.0-0.045)
[2021-05-23] MEDS ORDERED: NA CHLORIDE 0.9% 500 ML ONE (22:23)
[2021-05-23 22:26] LABS: Urine Blood 2+ (Negative); Urine Glucose Negative (Negative); Urine Protein 2+ (Negative); Urine Specific Gravity 1.015 (1.005-1.030); Urine pH 5.5 (5.0-7.0)
[2021-05-23] MEDS ORDERED: NA CHLORIDE 0.9% 100 ML ONE (22:53)
[2021-05-23] MEDS ORDERED: PIPERACIL/TAZO 3.375 GM VIAL IV ONE (22:53)
[2021-05-23 23:12] LABS: Urine Bacteria LOADED /HPF (<20); Urine Mucus 2+ /HPF (NONE SEEN)
--- NOTE | 2021-05-24 02:36 | EDPHYS ---
Physician Documentation [facility] Name: Mary Archuleta Age: 80 yrs Sex: Female : 1940 Arrival Date: 05/23/2021 Time: 21:01 Bed 2 Private MD: ED Physician Brenton Jaramillo HPI: 05/23 21:38 This 80 yrs old Female presents to ER via EMS with complaints of AFIB. pkl 21:38 The patient presents with confusion. Onset: The symptoms/episode began/occurred just pkl prior to arrival. Associated signs and symptoms: Pertinent positives: fever, chills and shaking, rapid heart rate ( 260 - 300 ), swelling redness right knee and leg. Patient was given IV Cardizem 25 mg by EMS and heart rate improved to 160. Patient had right knee surgery about 6 weeks ago at [facility] and developed knee infection. Had home IV antibiotics for 3 weeks. Historical: - Allergies: 21:08 Lisinopril; em - PMHx: 21:08 Atrial Fib; Diabetes - NIDDM; Hyperlipidemia; Depression; Hypertension; cervical em cancer; BREAST CA; Hypothyroidism; lymphedema; peptic ulcers; - Immunization history:: Adult Immunizations unknown. - Social history:: Smoking status: . ROS: 21:38 Eyes: Negative for injury, pain, redness, and discharge, ENT: Negative for injury, pkl pain, and discharge, Neck: Negative for injury, pain, and swelling, Cardiovascular: Negative for chest pain, palpitations, and edema, Respiratory: Negative for shortness of breath, cough, wheezing, and pleuritic chest pain, Abdomen/GI: Negative for abdominal pain, nausea, vomiting, diarrhea, and constipation, Back: Negative for injury and pain, : Negative for injury, bleeding, discharge, and swelling, Neuro: Negative for headache, weakness, numbness, tingling, and seizure. 21:38 MS/extremity: Positive for erythema, swelling, warmth, of the rlght knee and leg. Exam: 21:54 Head/Face: Normocephalic, atraumatic. Eyes: Pupils equal round and reactive to light, pkl extra-ocular motions intact. Lids and lashes normal. Conjunctiva and sclera are non-icteric and not injected. Cornea within normal limits. Periorbital areas with no swelling, redness, or edema. ENT: Nares patent. No nasal discharge, no septal abnormalities noted. Tympanic membranes are normal and external auditory canals are clear. Oropharynx with no redness, swelling, or masses, exudates, or evidence of obstruction, uvula midline. Mucous membranes moist. Neck: Trachea midline, no thyromegaly or masses palpated, and no cervical lymphadenopathy. Supple, full range of motion without nuchal rigidity, or vertebral point tenderness. No Meningismus. Chest/axilla: Normal chest wall appearance and motion. Nontender with no deformity. No lesions are appreciated. Cardiovascular: Regular rate and rhythm with a normal S1 and S2. No gallops, murmurs, or rubs. Normal PMI, no JVD. No pulse deficits. Respiratory: Lungs have equal breath sounds bilaterally, clear to auscultation and percussion. No rales, rhonchi or wheezes noted. No increased work of breathing, no retractions or nasal flaring. Abdomen/GI: Soft, non-tender, with normal bowel sounds. No distension or tympany. No guarding or rebound. No evidence of tenderness throughout. Back: No spinal tenderness. No costovertebral tenderness. Full range of motion. 21:54 Musculoskeletal/extremity: Extremities: grossly normal except: noted in the right knee and leg: erythema, swelling. Vital Signs: 21:04 BP 113 / 54; Pulse 97; Resp 18; Temp 102.9(O); Pulse Ox 96% on R/A; Pain 0/10; em 21:36 Weight 61.23 kg; em 22:55 BP 100 / 73; Pulse 102; Resp 20; Temp 101; ea 05/24 00:14 BP 114 / 44; Pulse 99; Resp 17 S; Pulse Ox 98% on R/A; Pain 0/10; em 01:14 BP 106 / 50; Pulse 110; Resp 18; Pulse Ox 99% on R/A; ea 01:39 BP 93 / 50; Pulse 85; Resp 17; Temp 99.9; Pulse Ox 100% on R/A; ea 02:47 BP 98 / 54; Pulse 80; Resp 22; Pulse Ox 99% on R/A; em 03:36 BP 102 / 58; Pulse 81; Resp 16; Temp 99; Pulse Ox 99% ; ea MDM: 05/23 21:21 Patient medically screened. pkl 05/24 02:31 Data reviewed: vital signs, nurses notes, lab test result(s), EKG, radiologic studies, pkl plain films. ED course: Discussed lab, EKG and imaging studies with patient. Advised transfer to [facility] where her Doctors are there. Patient agreed to the transfer. 05/23 21:05 Order name: Amylase, Serum 05/23 21:05 Order name: Basic Metabolic Panel 05/23 21:05 Order name: Blood Culture Adult (2) 05/23 21:05 Order name: CBC with Diff; Complete Time: 22:24 05/23 21:05 Order name: CPK; Complete Time: 22:24 05/23 21:05 Order name: Ckmb; Complete Time: 22:24 05/23 21:05 Order name: LFT's; Complete Time: 22:24 05/23 21:05 Order name: Lactate; Complete Time: 22:24 05/23 21:05 Order name: Lipase; Complete Time: 22:24 05/23 21:05 Order name: Procalcitonin; Complete Time: 22:24 05/23 21:05 Order name: Protime (+inr); Complete Time: 22:24 05/23 21:05 Order name: Ptt, Activated; Complete Time: 22:24 05/23 21:05 Order name: Troponin (emerg Dept Use Only); Complete Time: 22:24 05/23 21:05 Order name: Urine Microscopic Only; Complete Time: 23:37 05/23 21:05 Order name: Chest Single View XRAY; Complete Time: 22:24 05/23 21:06 Order name: Amylase; Complete Time: 22:24 EDSC 05/23 21:06 Order name: Basic Metabolic Panel; Complete Time: 22:24 EDSC 05/23 21:06 Order name: Blood Culture [facility] 05/23 21:21 Order name: Flu 05/23 21:21 Order name: Influenza Screen (A EDSC 05/23 21:26 Order name: COVID-19 : Document "Date of Symptom Onset" if Symptomatic. em 05/23 21:33 Order name: Sed Rate; Complete Time: 22:24 pk 05/23 21:35 Order name: C-Reactive Protein; Complete Time: 22:24 EDSC 05/23 21:46 Order name: CBC Smear Scan; Complete Time: 22:24 EDSC 05/23 22:27 Order name: Urine Dipstick-Ancillary; Complete Time: 22:35 EDSC 05/23 22:35 Order name: Urine Culture 05/23 23:28 Order name: SARS-COV-2 RT PCR; Complete Time: 23:37 EDSC 05/23 21:05 Order name: Accucheck; Complete Time: 22:11 05/23 21:05 Order name: Cardiac monitoring; Complete Time: 22:11 05/23 21:05 Order name: EKG - Nurse/Tech; Complete Time: 22:11 05/23 21:05 Order name: IV Saline Lock - Large Bore; Complete Time: 22:11 05/23 21:05 Order name: Labs collected and sent; Complete Time: 22:11 05/23 21:05 Order name: O2 Per Protocol; Complete Time: 22:11 05/23 21:05 Order name: O2 Sat Monitoring; Complete Time: 22:11 05/23 21:05 Order name: Urine Dipstick-Ancillary (obtain specimen); Complete Time: 22:11 05/23 21:31 Order name: XRAY Knee RIGHT 2 view; Complete Time: 22:24 Administered Medications: 05/23 21:27 Drug: NS 0.9% (30 ml/kg) 30 ml/kg {Note: per provider amdinister only 500 NS until ea further notice from provider .} Route: IV; Rate: bolus; Site: right antecubital; 22:34 Follow up: Response: No adverse reaction; IV Status: Completed infusion; IV Intake: ea 800ml 21:27 Drug: Tylenol 1000 mg Route: PO; ea 22:59 Follow up: Response: No adverse reaction; Temperature is decreased ea 22:34 Drug: NS 0.9% 1000 ml Route: IV; Rate: 125 ml/hr; Site: right antecubital; ea 05/24 03:51 Follow up: Response: No adverse reaction; IV Status: Infusion continued upon transfer ea 05/23 22:59 Drug: Zosyn (piperacillin-tazobactam) 3.375 grams Route: IVPB; Infused Over: 60 mins; ea Site: right antecubital; 05/24 00:13 Follow up: Response: No adverse reaction; IV Status: Completed infusion; IV Intake: em 100ml Disposition Summary: 05/24/21 02:36 Transfer Ordered Transfer Location: [facility] pkl Reason: Higher level of care pkl Condition: Stable pkl Problem: new pkl Symptoms: have improved pkl Accepting Physician: DR. João romero(05/24/21 03:53) aura Diagnosis - Cellulitis right knee pkl Discharge Instructions: - Discharge Summary Sheet em Forms: - Medication Reconciliation Form pkl - SBAR form em Signatures: Dispatcher [employer] EDMS Brenton Jaramillo MD MD pkl Josafat Lion, RN RN em Meredith Olsen RN RN ea Corrections: (The following items were deleted from the chart) 05/23 21:35 21:33 C-REACTIVE PROTEIN+C.LAB.BRZ ordered. EDMS EDMS 22:34 21:26 CORONAVIRUS ordered. EDMS EDMS 05/24 03:53 02:36 DR. João romero pkl ea
--- NOTE | 2021-05-24 02:36 | ER ---
Nurse's Notes [facility] Name: Mary Archuleta Age: 80 yrs Sex: Female : 1940 Arrival Date: 05/23/2021 Time: 21:01 Bed 2 Private MD: Diagnosis: Cellulitis right knee Presentation: 05/23 21:04 Chief complaint: EMS states: called out for shaking and AMS, on scene pt rate was em between 260-300s, hx of AFib, was given 25 mg Cardizem and rate improved to 160s, pt also has a temp. of 103, BGL 124, pt A\T\Ox3 now, also is being treated for a joint infection in the right knee, right leg is swollen and reports it is normal for pt. Coronavirus screen: Client denies travel out of the [place] in the last 14 days. Ebola Screen: Patient negative for fever greater than or equal to 101.5 degrees Fahrenheit, and additional compatible Ebola Virus Disease symptoms Patient denies exposure to infectious person. Patient denies travel to an Ebola-affected area in the 21 days before illness onset. No symptoms or risks identified at this time. Initial Sepsis Screen: Does the patient meet any 2 criteria? Temp <36.0*C (96.8*F)) or > 38.3*C (100.9*F). HR > 90 bpm. Yes Does the patient have a suspected source of infection? Yes: Bone or joint infection If YES to both, name of provider notified: Josafat Lion RN. Risk Assessment: Do you want to hurt yourself or someone else? Patient reports no desire to harm self or others. Onset of symptoms was May 23, 2021. 21:04 Method Of Arrival: EMS: [facility] em 21:04 Acuity: SILVERIO 2 em Historical: - Allergies: 21:08 Lisinopril; em - PMHx: 21:08 Atrial Fib; Diabetes - NIDDM; Hyperlipidemia; Depression; Hypertension; cervical em cancer; BREAST CA; Hypothyroidism; lymphedema; peptic ulcers; - Immunization history:: Adult Immunizations unknown. - Social history:: Smoking status: . Screenin:09 Abuse screen: Denies threats or abuse. Nutritional screening: No deficits noted. em Tuberculosis screening: No symptoms or risk factors identified. Fall Risk None identified. Assessment: 21:05 General: Appears in no apparent distress. distressed, comfortable, Behavior is calm, em cooperative, appropriate for age, Reports fever for. Pain: Denies pain. Neuro: Level of Consciousness is awake, alert, obeys commands, Oriented to person, place, time, situation, Appropriate for age. Cardiovascular: Denies chest pain, shortness of breath, Capillary refill < 3 seconds Patient's skin is warm and dry. Rhythm is atrial fibrillation. Respiratory: Airway is patent Respiratory effort is even, unlabored, Respiratory pattern is regular, symmetrical. GI: Patient currently denies nausea, vomiting. Derm: Skin is intact, is healthy with good turgor, Skin is pink, warm \T\ dry. Musculoskeletal: Capillary refill < 3 seconds, Range of motion: intact in all extremities, Swelling present in right leg. 21:43 Reassessment: 1L of NS administered per EMS. ea 21:53 Reassessment: Shannan Quinonez is pt's Power of Service Observer her phone number is [phone].bb 23:29 Reassessment: Patient appears in no apparent distress at this time. Patient and/or em family updated on plan of care and expected duration. Pain level reassessed. Patient is alert, oriented x 3, equal unlabored respirations, skin warm/dry/pink. 05/24 01:14 Reassessment: Patient and/or family updated on plan of care and expected duration. Pain ea level reassessed. Patient is alert, oriented x 3, equal unlabored respirations, skin warm/dry/pink. 02:47 Reassessment: Patient appears in no apparent distress at this time. Patient and/or em family updated on plan of care and expected duration. Pain level reassessed. Patient is alert, oriented x 3, equal unlabored respirations, skin warm/dry/pink. 03:52 Reassessment: Patient and/or family updated on plan of care and expected duration. Pain ea level reassessed. Patient is alert, oriented x 3, equal unlabored respirations, skin warm/dry/pink. [facility] at facility for transfer, pt left ED via stretcher per EMS, pt tolerating well. Vital Signs: 05/23 21:04 BP 113 / 54; Pulse 97; Resp 18; Temp 102.9(O); Pulse Ox 96% on R/A; Pain 0/10; em 21:36 Weight 61.23 kg; em 22:55 BP 100 / 73; Pulse 102; Resp 20; Temp 101; ea 05/24 00:14 BP 114 / 44; Pulse 99; Resp 17 S; Pulse Ox 98% on R/A; Pain 0/10; em 01:14 BP 106 / 50; Pulse 110; Resp 18; Pulse Ox 99% on R/A; ea 01:39 BP 93 / 50; Pulse 85; Resp 17; Temp 99.9; Pulse Ox 100% on R/A; ea 02:47 BP 98 / 54; Pulse 80; Resp 22; Pulse Ox 99% on R/A; em 03:36 BP 102 / 58; Pulse 81; Resp 16; Temp 99; Pulse Ox 99% ; ea ED Course: 05/23 21:01 Patient arrived in ED. cf2 21:04 Josafat Lion, RN is Primary Nurse. em 21:08 Triage completed. em 21:08 Arm band placed on. em 21:09 Patient has correct armband on for positive identification. Placed in gown. Bed in low em position. Call light in reach. Side rails up X2. [employer] executive director on. Pulse ox on. NIBP on. 21:09 Maintain EMS IV. Dressing intact. Good blood return noted. Site clean \T\ dry. Gauge \T\ em site: 18G RFA. 21:09 Maintain EMS IV. Dressing intact. Good blood return noted. Site clean \T\ dry. Gauge \T\ em site: 20 LFA. 21:21 Brenton Jaramillo MD is Attending Physician. pkl 21:42 Chest Single View XRAY In Process Unspecified. EDMS 21:42 XRAY Knee RIGHT 2 view In Process Unspecified. EDMS 23:30 initiated a transfer with Simi from [facility]. mw2 23:31 [facility] denied due to capacity. mw2 23:35 Called [phone] [facility] the office of Dr. bk Ibarra. Spoke to Natasha to see if she can page the Dr. Ibarra to speak to Dr. Jaramillo. 05/24 00:[address] Jaramillo with Dr[address] Real. mw2 00:11 initiated a transfer with Cheri Adler from [facility]. mw2 00:21 [facility] and [facility] denied due to capacity. mw2 00:23 initiated a transfer with Geneterin Tyson from [facility]. mw2 00:32 [facility] denied due to capacity. mw2 00:32 [facility] and [facility] the [place] denied due to capacity. mw2 00:36 initiated a transfer to [facility] the line got hung up. mw2 01:00 initiated a transfer to [facility] the expected wait time to speak to a coordinator is mw2 greater than 15 minutes. 01:25 still on hold with [facility] Transfer [place]. mw2 01:33 initiated a transfer with Jarrett from [facility] Transfer [place]. mw2 01:39 all of the [facility] campuses denied due to capacity. mw2 01:42 initiated a transfer with Simi from [facility]. mw2 02:25 administrative approval given by Simi Cooper/ patient has been accepted to [address]/ Dr. Herrmann accepted the patient in transfer/ pending bed assignment. 02:38 patient is going to [address] 749A. mw2 03:37 Patient admitted, IV remains in place. ea 03:37 No provider procedures requiring assistance completed. ea Administered Medications: 05/23 21:27 Drug: NS 0.9% (30 ml/kg) 30 ml/kg {Note: per provider amdinister only 500 NS until ea further notice from provider .} Route: IV; Rate: bolus; Site: right antecubital; 22:34 Follow up: Response: No adverse reaction; IV Status: Completed infusion; IV Intake: ea 800ml 21:27 Drug: Tylenol 1000 mg Route: PO; ea 22:59 Follow up: Response: No adverse reaction; Temperature is decreased ea 22:34 Drug: NS 0.9% 1000 ml Route: IV; Rate: 125 ml/hr; Site: right antecubital; ea 05/24 03:51 Follow up: Response: No adverse reaction; IV Status: Infusion continued upon transfer ea 05/23 22:59 Drug: Zosyn (piperacillin-tazobactam) 3.375 grams Route: IVPB; Infused Over: 60 mins; ea Site: right antecubital; 05/24 00:13 Follow up: Response: No adverse reaction; IV Status: Completed infusion; IV Intake: em 100ml Intake: 05/23 22:34 IV: 800ml; Total: 800ml. ea 05/24 00:13 IV: 100ml; Total: 900ml. em Outcome: 02:36 ER care complete, transfer ordered by . cortney 03:37 Discharged to home ambulatory, with family. ea 03:37 Condition: stable 03:37 Discharge instructions given to patient, Instructed on the need for transfer, Demonstrated understanding of instructions. 03:53 Patient left the ED. ea Addendum: 05/27/2021 08:25 Addendum: Culture Results: Positive urine culture. Positive blood culture. Faxed to a [address], spoke to Fatimah. Signatures: Dispatcher [employer] Brenton Lewis MD MD pkl Munoz, Edgar, RN RN Christianne Moody RN RN Julissa Arreola RN RN Meredith Webber RN RN Magi Urrutia mw2 [place] Hall cf2 Corrections: (The following items were deleted from the chart) 05/23 23:43 23:35 Called [facility] the office of Dr. Fran Ibarra. Spoke to Natasha to see if she can page the Dr. Ibarra to speak to Dr. Jaramillo. 2 05/24 01:08 00:36 tried to initiate a transfer to [facility] the line got hung up mw2 mw2 03:37 03:36 BP 102 / 48; Pulse 81bpm; Resp 16bpm; Pulse Ox 99%; Temp 99F; ea ea
[2021-05-24 04:58] VITALS: O2SAT 99
[2021-05-24 05:00] VITALS: BP 102/58; TEMP 99
--- NOTE | 2021-05-28 12:43 | EKG ---
Test Date: 2021-05-23 Test Time: 21:03:57 Bottom Crane Operator: PO MEASUREMENT RESULTS: Intervals: Rate: 99 ID: [id number]: [id number] QT: 348 QTc: 446 [place]: P: ID: [id number]: [id number] T: 36 INTERPRETIVE STATEMENTS: Atrial fibrillation with premature ventricular or aberrantly conducted complexes Left axis deviation Low voltage QRS Abnormal ECG Compared to ECG 08/18/2019 15:02:18 Ventricular premature complex(es) now present Left-axis deviation now present Myocardial infarct finding no longer present Electronically Signed On 05-28-21 12:38:08 CDT by Omero Szymanski
== END 2021-05-24 03:53 | disposition short-term general hospital (02) ==
LOC: ER 20:59
DX: L03.115 Cellulitis of right lower limb (principal); I48.91 Unspecified atrial fibrillation; I10 Essential (primary) hypertension; Z85.3 Personal history of malignant neoplasm of breast; Z88.8 Allergy status to other drugs, medicaments and biological substances; Z20.822 Contact with and (suspected) exposure to COVID-19; Z85.41 Personal history of malignant neoplasm of cervix uteri
CPT/HCPCS: 96365; 96367; 96361; 87040 ×2; 87088; 85025; 87086; 80048; 36415; 82150; 82550; 87205 ×4; 85610; 80076; 83605; 85730; 85652; 87077 ×3; 87186 ×3; 84484; 82553; 83690; 84145; 86140; 71045; 73560; 99284; U0003; J2543; J7040; J7030; 81003; 81015; 93005

== ENCOUNTER 2021-12-25 02:20 | Emergency (ER) | payer OTHER, BC ==
--- OUTSIDE RECORDS SUMMARY | 2021-12-25 02:24 | XMS REPORT | Continuity of Care Document ---
:1940 Author Organization [facility] t Address [address] [place] [address] Care Team Providers Name Role Phone GALEN JEAN Primary Care Physician Unavailable Leroy Pruett Attending Clinician Unavailable [id number] Attending Clinician Unavailable UVALDO BAEZ Attending Clinician Unavailable ROBERT Attending Clinician Unavailable ROSA AMBROSE Attending Clinician Unavailable LEO Attending Clinician Unavailable ANAT Attending Clinician Unavailable MERCEDEZ Attending Clinician Unavailable MD MERCEDEZ Attending Clinician Unavailable NELDA Attending Clinician Unavailable MD Clint OLIVAREZ Attending Clinician Unavailable KIMBERLEE Attending Clinician Unavailable MD SERGIO Attending Clinician Unavailable SHALINI Attending Clinician Unavailable MD VENITA COPPOLA Attending [...] Attending Clinician Unavailable FABY Attending Clinician Unavailable Leroy Pruett Admitting Clinician Unavailable [id number] Admitting Clinician Unavailable UVALDO BAEZ Admitting Clinician Unavailable MERCEDEZ Admitting Clinician Unavailable MD MERCEDEZ Admitting Clinician Unavailable MARCELLE Admitting Clinician Unavailable NATI Admitting Clinician Unavailable MD NATI Admitting Clinician Unavailable KAEL Admitting Clinician Unavailable MD Marvel SCRUGGS Admitting Clinician Unavailable ANAT Admitting Clinician Unavailable MD VENITA COPPOLA Admitting Clinician Unavailable ROSA AMBROSE Admitting Clinician Unavailable MIREYA Admitting Clinician Unavailable DAYANA CHARLES Admitting Clinician Unavailable MALDONADO MICHELE Admitting Clinician Unavailable FRANCISCA Admitting Clinician Unavailable FABY Admitting Clinician Unavailable Payers Payer Name Policy Type Policy Number Effective Date Expiration Date Katelyn knott MCR MCR [id number] BCTX BCTI [id number] MEDICARE A B [id number] 2007 00:00:00 [place] [id number] 2015 OS 00:00:00 Problems This patient has no known problems. Allergies, Adverse Reactions, Alerts Allergy Allergy Status Severity Reaction(s) Onset Inactive Treating Comm ents Source Name Type Date Date Clinician APIXABAN Allergy Active SLE 12-10 00:00: 00 LISINOPR Allergy Active [facility] [place] 6[place]11 23:30: 39 LISINOPR [place]ergy [place] [facility] [place] 6[place] 23:30: 39 LISINOPR [place]ergy [place] [place] 6[place] 23:30: 39 LISINOPR [place]ergy [place] [place] 6[place] 23:30: 39 [place]ISINOPR [place] [place] 6[place] 23:30: 39 [place]ISINOPR [place] [place] 6[place] 23:30: 39 LISINOPR Allergy [facility] [place] [facility] Medications This patient has no known medications. Vital Signs Vital Name Observation Time Observation Value Comments Source HEIGHT 2021-12-10 09:35:00 154.9 cm WEIGHT 2021-12-10 09:35:00 60.782 kg HEIGHT 2021-01-09 13:11:00 157.5 cm WEIGHT 2021-01-09 13:11:00 60.782 kg WEIGHT 2020-10-10 11:20:00 61.236 kg HEIGHT 2020-10-10 11:20:00 157.5 cm WEIGHT 2020-10-10 11:20:00 61.236 kg HEIGHT 2020-10-10 11:20:00 157.5 cm HEIGHT 2020-04-04 00:00:00 157.5 cm WEIGHT 2020-04-04 00:00:00 60.782 kg HEIGHT 2020-04-04 00:00:00 157.5 cm WEIGHT 2020-04-04 00:00:00 60.782 kg Procedures Procedure Date / Time Performed Performing Clinician Malgorzata guzman [id number] 2021-04-08 00:00:00 ENCPL 27NL22A 2021-04-08 00:00:00 ENCPL 05IS77F 2021-04-08 00:00:00 ENCPL 23UB33H 2021-04-08 00:00:00 ENCPL 76BZ66W 2021-04-08 00:00:00 ENCPL 54NY17X 2021-04-08 00:00:00 ENCPL 65QI05Z 2021-04-02 00:00:00 ENCPL 34FH52E 2021-04-02 00:00:00 ENCPL 55WZ40K 2021-04-02 00:00:00 ENCPL 50TV43V 2021-04-02 00:00:00 ENCPL 58SD45L 2021-04-02 00:00:00 ENCPL 15IJ64Z 2021-04-02 00:00:00 ENCPL Encounters Start End Encounter Admission Attending Care Care Encounter Source Date/Time Date/Time Type Type Clinicians Facility Department ID 2021-11-28 Outpatient [place] [id number] ENCPL 12:39:34 Leroy 0807 2021-11-28 [place]patient [place] [id number] ENCPL 12:39:12 Leroy 0806 2021-11-28 Outpatient 3 [id number] ENC[facility] REF [id number] ENCPL 12:38:20 0804 2021-11-28 Outpatient 3 [id number] ENCPL REF [id number] ENCPL 12:38:02 0803 2021-11-28 Outpatient 3 [place] [id number] ENCPL 12:09:59 UVALDO 0519 2021-11-28 Outpatient 3 [id number] ENCPL REF [id number] ENCPL 12:09:36 052021-11-28 Outpatient 3 [id number] ENCPL REF [id number] ENCPL 10:19:14 0802 2021-06-21 Outpatient ANGELITO MANNINGCLR [id number] ENCCLR 14:31:34 N RONEL 2021-12-10 2021-12-10 Outpatient EL LINK, SLE SLE [id number] SLEH 09:04:19 23:59:00 MARCO A 2021-11-15 2021-11-15 Outpatient [facility]INK, SLEH SLEH [id number] [facility] 00:00:00 23:59:00 MARCO A 2021-10-29 2021-10-29 Outpatient EL LINK, SLEH SLE [id number] [facility] 00:00:00 23:59:00 MARCO A 2021-10-24 2021-10-24 Outpatient EL LINK, SLE SLE [id number] [facility] 00:00:00 00:00:00 [facility] 2021-10-10 2021-10-10 Outpatient LEO [facility] [id number] [place] 00:00:00 00:00:00 EBONY 122 Method i 2021-08-01 2021-08-01 [facility] [id number] [place] 00:00:00 00:00:00 EBONY 817 Method i 2021-07-22 2021-07-22 Outpatient ANAT DEBBI [facility] 2100 [id number] [place] 00:00:00 00:00:00 403 Method i 2021-07-22 2021-07-22 Outpatient ANAT DEBBI [facility] 2100 [id number] [place] 00:00:00 00:00:00 111 Method i 2021-07-01 2021-07-01 Outpatient ANAT [facility] 2100 [id number] [place] 00:00:00 00:00:00 253 Method i 2021-07-01 2021-07-01 Outpatient ANAT DEBBI [facility] 2100 [id number] [place] 00:00:00 00:00:00 225 Method i 2021-07-01 2021-07-01 Outpatient ANAT EDBBI [facility] 2100 [id number] [place] 00:00:00 00:00:[address] 2021-06-12 2021-06-13 [id number] [place] 00:00:00 00:00:00 GISELLE [address] 2021-04-12 2021-06-10 Outpatient DALIA JONES, ENCCLR [facility] [id number] [facility]LR 00:00:00 00:00:00 Gilmar RONEL 2021-05-24 2021-06-08 Inpatient NELDA [facility] [id number] [place] 00:00:00 00:00:00 CHINONYEREM 410 Me thodi 2021-05-13 2021-05-13 Outpatient [facility] [id number] [place] 00:00:00 00:00:[address] 2021-05-13 2021-05-13 Outpatient [facility] 2100 [id number] [place] 00:00:00 00:00:[address] 2021-04-29 2021-04-29 Outpatient [facility] 2100 [id number] [place] 00:00:00 00:00:[address] 2021-04-29 2021-04-29 Outpatient [facility] 2100 [id number] [place] 00:00:00 00:00:[address] 2021-04-15 2021-04-15 Outpatient [facility] 2100 [id number] [place] 00:00:00 00:00:[address] 2021-04-15 2021-04-15 Outpatient [facility] 2100 [id number] [place] 00:00:00 00:00:[address] 2021-03-13 2021-03-20 Inpatient KIMBERLEE [facility] [id number] [place] 00:00:00 00:00:00 CORNEL [address] 2021-03-11 2021-03-11 Outpatient [facility] 2100 [id number] [place] 00:00:00 00:00:[address] 2021-03-11 2021-03-11 Outpatient [facility] 2100 [id number] [place] 00:00:00 00:00:[address] 2021-02-20 2021-02-20 Outpatient [facility] 2100 [id number] [place] 00:00:00 00:00:[address] 2021-02-20 2021-02-20 Outpatient PARK, DEBBI [facility] 2100 [id number] [place] 00:00:00 00:00:[address] 2021-02-20 2021-02-20 Outpatient ANAT DEBBI [facility] 2100 [id number] [place] 00:00:00 00:00:[address] 2021-02-20 2021-02-20 Outpatient ANAT DEBBI [facility] [id number] [place] 00:00:00 00:00:[address] 2021-01-15 2021-01-15 Outpatient SHALINI, [facility] [id number] [place] 00:00:00 00:00:00 AMARI [address] 2021-01-09 2021-01-09 [facility] [id number] [facility] 00:00:00 00:00:00 2020-12-25 2020-12-25 Outpatient [facility] [id number] [place] 00:00:00 00:00:[address] 2020-10-10 2020-10-10 Outpatient EL SLE SLE [id number] [facility] 00:00:00 00:00:00 2020-10-05 2020-10-05 Outpatient ANAT DEBBI [facility] [id number] [place] 00:00:00 00:00:[address] 2020-10-05 2020-10-05 Outpatient ANAT [facility] 2100 [id number] [place] 00:00:00 00:00:[address] 2020-08-03 2020-08-03 Outpatient ANAT [facility] 2100 [id number] [place] 00:00:00 00:00:[address] 2020-08-03 2020-08-03 Outpatient ANAT [facility] [id number] [id number] [place] 00:00:00 00:00:[address] 2020-07-16 2020-07-16 Outpatient EL SLE SLE [id number] SLE 00:00:00 00:00:00 2020-06-12 2020-06-12 Outpatient ANAT [facility] [id number] [place] 00:00:00 00:00:[address] 2020-06-12 2020-06-12 Outpatient PARK, DEBBI [facility] 2100 [id number] [place] 00:00:00 00:00:[address] 2020-05-31 2020-06-03 Inpatient PARK, DEBBI [facility] 021 [id number] [place] 00:00:00 00:00:[address] 2020-05-28 2020-05-28 Outpatient PARK, DEBBI [facility] 2100 [id number] [place] 00:00:00 00:00:[address] 2020-05-25 2020-05-25 Outpatient NEWGAGE [facility] [id number] [id number] [place] 00:00:00 00:00:[address] 2020-05-25 2020-05-25 Outpatient PARK, DEBBI [facility] [id number] [id number] [place] 00:00:00 00:00:[address] 2020-04-18 2020-04-18 Outpatient PARK, DEBBI [facility] 2100 [id number] [place] 00:00:00 00:00:[address] 2020-04-04 2020-04-04 Outpatient [facility] [id number] SLE 00:00:00 00:00:00 MARCO A 2020-03-13 2020-03-13 Outpatient PARK, DEBBI [facility] 2100 [id number] [place] 00:00:00 00:00:[address] 2020-03-13 2020-03-13 Outpatient PARK, DEBBI [facility] 2100 [id number] [place] 00:00:00 00:00:[address] 2020-03-13 2020-03-13 Outpatient PARK, [facility] 2100 [id number] [place] 00:00:00 00:00:[address] 2020-02-07 2020-02-07 Outpatient PARK, [facility] 2100 [id number] [place] 00:00:00 00:00:[address] 2020-02-07 2020-02-07 Outpatient PARK, [facility] 2100 [id number] [place] 00:00:00 00:00:[address] 2020-01-26 2020-01-26 Outpatient PARK, DEBBI [facility] 2100 [id number] [place] 00:00:00 00:00:[address] 2020-01-16 2020-01-21 Inpatient [place], [place] [id number] [place] 00:00:00 00:00:00 MARGRET [address] 2020-01-06 2020-01-06 Outpatient DEBBI COPPOLA [facility] 2100 [id number] [place] 00:00:00 00:00:[address] 2020-01-06 2020-01-06 Outpatient DEBBI COPPOLA [facility] 2100 [id number] [place] 00:00:00 00:00:[address] 2020-01-06 2020-01-06 Outpatient DEBBI COPPOLA [facility] [id number] [id number] [place] 00:00:00 00:00:[address] 2020-01-06 2020-01-06 Outpatient ANAT DEBBI [facility] 2100 [id number] [place] 00:00:00 00:00:[address] 2020-01-06 2020-01-06 Outpatient DEBBI COPPOLA [facility] [id number] [id number] [place] 00:00:00 00:00:[address] 2020-01-06 2020-01-06 Outpatient DEBBI COPPOLA [facility] 2100 [id number] [place] 00:00:00 00:00:[address] 2020-01-06 2020-01-06 Outpatient ANAT DEBBI [facility] [id number] [id number] [place] 00:00:00 00:00:[address] 2020-01-06 2020-01-06 Outpatient DEBBI COPPOLA [facility] 2100 [id number] [place] 00:00:00 00:00:[address] 2020-01-06 2020-01-06 Outpatient DEBBI COPPOLA [facility] 2100 [id number] [place] 00:00:00 00:00:[address] 2016-02-07 2016-02-07 Outpatient FRANCISCA, [facility] 018 [id number] [place] 00:00:00 00:00:00 ELIO [address] 2015-12-18 2015-12-19 Inpatient FABY [facility] [id number] [place] 00:00:00 00:00:00 JACKI [address] 2015-12-06 2015-12-06 Outpatient FABY [facility] [id number] [place] 00:00:00 00:00:00 JACKI [address] Results Test Description Test Time Test Comments Results Result Sourc e Comments ANG, NEPHROSTOMY 2021-12-11 Reason for TUBE CHANGE, RIGHT 15:07:00 Exam:->hydronep hrosis [facility] 1940 Sex: F *FINAL REPORT Fluoroscopic guided bilateral nephrostomy tube exchange. Clinical History: Ureteral strictures with urinary incontinence. Modality: Fluoroscopy [employer]: Sukhi Oakes MD. Per Diem Interpreter: None. Sedation: None Estimated Blood Loss: Less than 5 cc. Specimen: None. Fluoroscopy Time: 2.0 min.Reference Air Kerma (Ka, r): 7.4 mGy. Technique: Informed written consent was obtained. [...] gown for performing radiologist and scrub technologist. Initial aviculturist image demonstrates indwelling left PCNU and right PCN. Patient reports persistent incontinence. Contrast was injected through the catheter is to confirm location within the urinary collecting system. The left catheter was cut and a wire was placed through the catheter and into the bladder. The old catheter was removed. A new 10 Macedonian nephrostomy tube was advanced over the catheter. The wire was removed and the pigtail catheter was locked. The catheter was then secured onto the skin with 2-0 silk. A sterile dressing was applied. Repeat contrast injection was performed demonstrating good positioning within the left renal pelvis. Similar technique was used to exchange the right nephrostomy tube for a new 12 Macedonian nephrostomy tube with post placement contrast injections confirming good location within the renal pelvis. The catheter was then secured onto the skin with 2-0 silk. A sterile dressing was applied. The patient tolerated the procedure well, without immediate complications. The patient's vital signs remained stable throughout the procedure. Patient disposition: The patient was discharged from the department in stable condition. Impression:Successfu l and uncomplicated fluoroscopic guided right 12 Macedonian PCN exchange and left PCNU to 10 Macedonian PCN conversion. Signed: Sukhi Oakes MDReport Verified Date/Time: 12/11/2021 15:07:30 -CoV-2 (COVID-19) RNA [Presence] in Respiratory sp ecimen by 2021-06-12 22:03:21 BIMAL with probe detection Test Item Value Reference Range Interpretation Comme nts SARS-CoV-2 (COVID-19) RNA [Presence] in Respiratory Not detected No t-Detected specimen by BIMAL with probe detection (test code = 38169-6) Whether patient is employed in a healthcare setting (test code = 70990-8) Whether the patient has symptoms related to condition of interest (test code = 57439-6) Patient was hospitalized because of this condition (test code = 89036-9) Whether the patient was admitted to intensive care unit (ICU) for condition of interest (test code = 75485-5) Whether patient resides in a congregate care setting (test code = 70698-6) SARS-CoV-2 (COVID-19) RNA [Presence] in Respiratory specimen by BIMAL with probe [id number] 09:56:54 Test Item Value Reference Range Interpretation Comments SARS-CoV-2 (COVID-19) RNA Not detected Not-Detected [Presence] in Respiratory specimen by BIMAL with probe detection (test code = 10275-4) Whether patient is employed in a healthcare setting (test code = 56886-4) Whether the patient has symptoms related to condition of interest (test code = 65271-4) Patient was hospitalized because of this condition (test code = 90301-9) Whether the patient was admitted to intensive care unit (ICU) for condition of interest (test code = 07968-4) Whether patient resides in a congregate care setting (test code = 87555-9) SARS-CoV-2 (COVID-19) RNA [Presence] in Respiratory specimen by BIMAL with probe [id number] 00:39:35 Test Item Value Reference Range Interpretation Comments SARS-CoV-2 (COVID-19) RNA Not detected Not-Detected [Presence] in Respiratory specimen by BIMAL with probe detection (test code = 99721-3) Whether patient is employed in a healthcare setting (test code = 94424-4) Whether the patient has symptoms related to condition of interest (test code = 24301-5) Patient was hospitalized because of this condition (test code = 31971-5) Whether the patient was admitted to intensive care unit (ICU) for condition of interest (test code = 28875-2) Whether patient resides in a congregate care setting (test code = 02998-6) ANG, NEPHROSTOMY TUBE CHANGE, [id number] 11:34:00Reason for Exam:- >HYDRONEPHROSIS, UNSPECIFIED HYDRONEPHROSIS TYPE (N13.30) [facility] : 1940 Sex: FAddendum BeginsREPORT STATUS:A ADDENDUM:Please note that the amount andtype of contrast administered was not correct. Instead Isovue 300 was administered and 40 mL total was given. Signed: Sukhi Oakes MDReport Verified Date/Time: 01/10/2021 11:34:23 Reading Location: [place] [address] Angio Body Reading RoomAddendum EndsFINAL REPORT PROCEDURE: Genitourinary catheter exchange Procedural PersonnelAttending physician(s): Yamila Peguero physician(s): NoneResident physician(s): NoneAdvanced practice provider(s): None Pre-procedure diagnosis: Indwelling right percutaneous nephrostomy and left percutaneous nephroureteral tubesPost-procedure diagnosis: SameIndication: Routine scheduled exchangeAdditional clinical history: None Complications: No immediate complications. IMPRESSION: Successful right 12 - Macedonian PCN exchange and left 10 Macedonian PCNU exchange.Right antegrade nephrostogram demonstrates complete occlusion of the distal right ureter, unable to cross with a Glidewire. Plan: Successful exchange. Routine exchange every 8-10 weeks as long asurinary diversion is required. PROCEDU RE SUMMARY- Target organ: Bilateral muscogee kidneys- Antegrade nephrostogram(s) via the existing access- [...] with contrast injection.Pre- existing genitourinary catheter: 12 Macedonian multipurpose drainage catheterGenitourinary [...] with contrast injection.Pre- existing genitourinary catheter: 10 Macedonian 22 cm nephroureteral [...] Less than 10Standardized report: SIR_GUCatheterExchange_v3 AttestationSigner name: Sukhi Oakes MDI attest that I was present for the entire procedure. I reviewed the stored images and agree with the report as written. Signed: Sukhi Oakes MDReport Verified Date/Time: 01/09/2021 16:21:59 Reading Location: [place] [address] Angio Body Reading Room , NEPHROSTOMY, PERC, EXTERNAL [id number] 17:38:00 [facility] : 1940 Sex: FFINAL REPORT Left percutaneous nephroureterostomy and right percutaneous nephrostomy catheter exchange History: Chronic renal obstruction, patient presents for routine exchange of bilateral catheters Modality: Fluoroscopy Sedation: None. [employer]: Gerald Baeza MD. Per Diem Interpreter: MD Merrick (fellow) Approach: Via indwelling bilateral [...] MDReport Verified Date/Time: 10/10/2020 17:38:32 Reading Location: [facility] P048 Angio Body Reading Room PROTHROMBIN TIME/[id number] 11:04:00 Test Item Value Reference Range Interpretation [...] INR is2.5-3.5 for patients wiht mechanical heart valves.BASIC METABOLIC [id number] 11:03:00 Test Item Value Reference Range Interpretation [...] S NOT APPLICABLE FOR DIALYSIS PATIEN TS. Doll Wigs Hackler ID - REID [id number] 11:01:00 Test Item Value Reference Range Interpretation Comments PARTIAL THROMBOPLASTIN TIME 34.1 seconds 22.5-36.0 (BEAKER) (test code = 760) CBC W/PLT COUNT & AUTO [id number] 10:55:00 Test Item Value Reference Range Interpretation [...] code = 2801) ANG, NEPHROSTOMY, PERC, INTERNAL [id number] 17:28:00Reason for Exam:->N13.30FINAL REPORT History: Chronic renal [...] as (Ka,r): 18.3 mGy Signed: Leslie العراقي Verified Date/Time: 07/18/2020 17:28:56 Reading Location: [place] [address] Angio Body Reading Room APTT 2020-07-16 11:08:00 Test Item Value Reference Range Interpretation Comments PARTIAL THROMBOPLASTIN TIME 34.3 seconds 22.5-36.0 (BEAKER) (test code = 760) PROTHROMBIN TIME/[id number] 11:07:00 Test Item Value Reference Range Interpretation [...] mechanical heart valves.CBC W/PLT COUNT & AUTO [id number] 10:55:00 Test Item Value Reference Range Interpretation [...] in Respiratory specimen by BIMAL with probe [id number] 17:39:26 Test Item Value Reference Range Interpretation Comments SARS-CoV-2 (COVID-19) RNA Not detected Not-Detected [Presence] in Respiratory specimen by BIMAL with probe detection (test code = 56492-2) ANG, NEPHROSTOMY TUBE CHANGE, [id number] 20:05:00Reason for Exam:->N13.30FINAL REPORT History: Chronic renal [...] catheter was removed and replaced over a IndigoVisionson wire with a similar size 12 Macedonian [...] as (Ka,r): 74 mGy Signed: Leslie العراقي Verified Date/Time: 04/04/2020 20:05:30 Reading Location: [place] [address] Angio Body Reading Room [id number] 12:53:00 Test Item Value Reference Range Interpretation Comments PARTIAL THROMBOPLASTIN TIME 34.5 seconds 22.5-36.0 (BEAKER) (test code = 760) PROTHROMBIN TIME/[id number] 12:52:00 Test Item Value Reference Range Interpretation [...] mechanical heart valves.CBC W/PLT COUNT & AUTO [id number] 12:47:00 Test Item Value Reference Range Interpretation [...] code = 2801) ANG, NEPHROSTOMY TUBE CHANGE, [id number] 16:06:00Reason for Exam:->uti w/o hematuria site unspecified, hydrohephrosisFINAL REPORT PROCEDURE: Percutaneous nephrostomy catheter placement CLINICAL H ISTORY: uti w/o hematuria site unspecified, hydronephrosis unspecified DATA ENTRY REPRESENTATIVE: Damian Quiros DO, JD ANESTHESIA: Local lidocaine. [...] MDReport Verified Date/Time: 12/26/2019 16:06:22 Reading Location: [address] Body Reading Room ANG, NEPHROSTOMY TUBE CHANGE, [id number] 16:06:00Reason for Exam:->uti w/o hematuria site unspecified, hydronephrosis unspecifiedFINAL REPORT PROCEDURE: Percutaneous nephrostomy catheter placement CLINICAL HISTORY: uti w/o hematuria site unspecified, hydronephrosis unspecified DATA ENTRY REPRESENTATIVE: Damian Quiros DO, JD ANESTHESIA: Local lidocaine. [...] MDReport Verified Date/Time: 12/26/2019 16:06:22 Reading Location: [place] [address] Angio Body Reading Room ANG, NEPHROSTOMY TUBE CHANGE, [id number] 12:12:00Reason for Exam:->Chronic bilateral nephrostomy tubes for bilateral ureteral obstruction.FINAL REPORT Fluoroscopic guided right nephrostomy and left nephroureterostomy catheter exchange. History: Chronic ureteral obstruction Modality: Fluoroscopy Sedation: None [employer]: Tutu Kruse MD Per Diem Interpreter: None. Approach: Via indwelling bilateral catheters Estimated [...] right sided percutaneous nephrostomy catheter exchange. Signed: Marci Kruse Verified Date/Time: 10/11/2019 12:12:41 Reading Location: [place] [address] Angio Body Reading Room [id number] 10:56:00 Test Item Value Reference Range Interpretation Comments PARTIAL THROMBOPLASTIN TIME 43.6 seconds 22.5-36.0 H (BEAKER) (test code = 760) PROTHROMBIN TIME/[id number] 10:55:00 Test Item Value Reference Range Interpretation [...] mechanical heart valves.CBC W/PLT COUNT & AUTO [id number] 10:48:00 Test Item Value Reference Range Interpretation [...] PERCENT (BEAKER) (test code = 2801) PROTHROMBIN TIME/[id number] 14:50:00 Test Item Value Reference Range Interpretation [...] for patients wiht mechanical heart valves.URINALYSIS W/ [id number] 14:42:00 Test Item Value Reference Range Interpretation [...] 1585) SOURCE(BEAKER) (test code Urine, Nephrostomy = 9095) BASIC METABOLIC [id number] 14:37:00 Test Item Value Reference Range Interpretation [...] PATIEN TS. CBC W/PLT COUNT & AUTO [id number] 14:22:00 Test Item Value Reference Range Interpretation [...] code = 2801) RAD, ABDOMEN/KUB, 1 VIEW [id number] 18:36:00Reason for exam:->FLANK PAIN FINAL REPORT Abdomen. [...] MDReport Verified Date/Time: 08/15/2019 18:36:07 Reading Location: [facility] C013 Consult Reading Room , NEPHROSTOMY TUBE CHANGE, [id number] 18:18:00Reason for Exam:->hydronephrosisFINAL REPORT Procedure: Right percutaneous nephrostomy catheter exchange. Left percutaneous nephroureterostomy catheter exchange. History: Routine maintenance. . [employer]: Yaya Templeton M.D. Per Diem Interpreter: None. Modality: Fluoroscopy. DOSE REDUCTION: The examination [...] local infiltration. Medicines: Not applicable Contrast medium: [id number], 30 cc. Estimated blood loss: < 5 [...] draped in the standard sterile fashion. A aviculturist radiograph was performed showing the catheter to [...] immediate. Findings:As above. Impression:Successful fluoroscopic guided 12 Macedonian right nephrostomy catheter exchange and 10.2 Macedonian by 24 cm left nephroureteral stent exchange as described above. Further management dictated by the clinical scenario. The nephrostomycatheter should be exchanged at the latest in three months. Thank you for the opportunity to assist in the care of your patient. Signed: Yaya Templeton MDReport Verified Date/Time: 08/15/2019 18:18:25 Reading Location: [facility] P048 Angio Body Reading Room CBC W/PLT COUNT & AUTO [id number] 17:21:00 Test Item Value Reference Range Interpretation [...] Received comment: User comments: Slide comments:BASIC METABOLIC [id number] 17:15:00 Test Item Value Reference Range Interpretation [...] DIALYSIS PATIEN TS. URINALYSIS W/ REFLEX URINE [id number] 17:12:00 Test Item Value Reference Range Interpretation [...] 520) > /HPF SOURCE(BEAKER) (test code = 0680) [id number] 12:26:00 Test Item Value Reference Range Interpretation Comments MAGNESIUM (BEAKER) (test code = 1.8 mg/dL 1.6-2.6 627) BASIC METABOLIC [id number] 12:26:00 Test Item Value Reference Range Interpretation [...] DIALYSIS PATIEN TS. MULLINS, NEPHROSTOMY TUBE CHANGE, [id number] 13:53:00Reason for Exam:- >hydronephrosis unspecifiedFINAL REPORT Fluoroscopic guided right nephrostomy and left nephroureterostomy catheter exchange. History: Chronic ureteral obstruction Modalit y: Fluoroscopy Sedation: None [employer]: Gerald Baeza MD. Per Diem Interpreter: None. Approach: Via indwelling bilateral catheters Estimated [...] MDReport Verified Date/Time: 06/02/2019 13:53:40 Reading Location: [place] [address] Angio Body Reading Room ANG, NEPHROSTOMY TUBE [...] over a Bentson wire. A new 12 Macedonian external nephrostomy [...] 45 mGy Signed: Leslie العراقي MDReport Verified Date/Time: 02/23/2019 19:15:22 Reading Location: [place] [address] Angio Body Reading Room BASI METABOLIC [id number] 11:18:00 Test Item Value Reference Range Interpretation [...] mg/dL 8.4-10.2 (test code = 697) EGFR (BETERRY) (test 48 mL/min/1.73 ESTIMA AGUSTÍN GFR IS code = 1092) sq m NOT ACCURATE CREATININE CLEARANCE IN PREDICTING GLOMERULAR FILTRATION RATE . ESTIMATED GFR I S NOT APPLICABLE FOR DIALYSIS PATIEN TS. MULLINS, NEPHROSTOMY TUBE CHANGE, [id number] 17:38:00Reason for Exam:->n13.30 FINAL REPORT Fluoroscopic guided right nephrostomy tube and left nephroureterostomy catheter replacement, 11/25/2018. Clinical History: Ureteral obstruction. Modality: Fluoroscopy. [employer]: Jenny. Per Diem Interpreter: Macario. Sedation: None. Estimated Blood Loss: Less [...] for performing radiologist and scrub technologist. A IndigoVisionson wire was advanced through the existing left-sided [...] left nephroureterostomy catheter replacement. Signed: Tray Alvarado MDReport Verified Date/Time: 11/25/2018 17:38:15 Reading Location: [place] [id number] Angio Body Reading Room 05:38 PMANG, NEPHROSTOMY TUBE CHANGE, LEFT 2018-08-19 14:10:00Reason for Exam:->hydronephrosis unspecified hydronephrosis typeFINAL REPORT Right percutaneous nephrostomy and left percutaneous nephroureterostomy catheter exchange. History: Ureteral obstruction Modality: fluoroscopy. Sedation: None [employer]: Gerald Baeza MD. Per Diem Interpreter: None. Approach: Lashonda Oakes (resident) Estimated blood [...] exchange. Signed: Gerald Baeza MDReport Verified Date/Time: 08/19/2018 14:10:12 Reading Location: [place] [address] Angio Body Reading Room PT/APTT 2018-05-07 12:58:00 [...] for patients with mechanical heart valves.BASIC METABOLIC [id number] 12:19:00 Test Item Value Reference Range Interpretation [...] S NOT APPLICABLE FOR DIALYSIS PATIEN TS. [id number] 11:43:00 Test Item Value Reference Range Interpretation [...] PERCENT (BEAKER) (test code = 2801) ANG, REM W/ FLUORO NEPH, TUBE [id number] 19:42:00FINAL REPORT Fluoroscopic guided bilateral nephrostomy tube exchange, 05/06/2018. Clinical History: Ureteral obstruction, clogged right PCN. Modality: Fluoroscopy. [employer]: Jenny. Per Diem Interpreter: Biju. Sedation: None. Estimated Blood Loss: Less [...] MDReport Verified Date/Time: 05/06/2018 19:42:30 Reading Location: [place] [id number] Angio Body Reading Room URINE [id number] 12:31:00 Test Item Value Reference Range Interpretation Comments CULTURE (BEAKER) (test >100,000 col/mL skin code = 1095) thomas ANG, NEPHROSTOMY TUBE CHANGE, [id number] 17:42:00Reason for exam:->Tube not drainingFINAL REPORT Right nephrostomy catheter exchange. History: Malfunction right nephrostomy catheter Modality: Fluoroscopy Sedation: None [employer]: Gerald Baeza MD. Per Diem Interpreter: None. Approach: Right flank Estimated blood loss: [...] MDReport Verified Date/Time: 04/09/2018 17:42:07 Reading Location: [place] [address] Angio Body Reading Room URINALYSIS W/ [id number] 14:48:00 Test Item Value Reference Range Interpretation [...] 1582) SOURCE(BEAKER) (test code = Urine, [place] 7957) BASIC METABOLIC [id number] 14:16:00 Test Item Value Reference Range Interpretation [...] S NOT APPLICABLE FOR DIALYSIS PATIEN TS. [id number] 14:06:00 Test Item Value Reference Range Interpretation [...] 0-1 PERCENT (BEAKER) (test code = 2801) HARPREET, NEPHROSTOMY TUBE CHANGE, [id number] 09:41:00Reason for exam:- >dysfunction nephrostomy tube on [...] Leslie العراقي Verified Date/Time: 03/15/2018 09:41:31 Reading Location:[place] [address] Angio Body Reading Room ANG, NEPHROSTOMY TUBE CHANGE, LEFT 2018-02-24 16:05:00Reason for Exam:->n13.30FINAL REPORT Left percutaneous nephroureterostomy and right percutaneous nephrostomy catheter exchange. History: 77-year-old female with history of ureteral strictures presents for routine catheter exchange. Modality: FluoroscopySedation: None [employer]: Gerald Baeza MD. Per Diem Interpreter: None. Approach: Bilateral flanks Estimated blood loss: [...] for performing radiologist and scrub technologist. A aviculturist image images was obtained. Contrast was injected [...] MDReport Verified Date/Time: 02/24/2018 16:05:12 Reading Location: [place] [id number] Angio Body Reading Room ANG, NEPHROSTOMY TUBE CHANGE, [id number] 16:05:00Reason for Exam:->n13.30FINAL REPORT Left percutaneous nephroureterostomy and right percutaneous nephrostomy catheter exchange. History: 77-year-old female with history of ureteral strictures presents for routine catheter exchange. Modality: FluoroscopySedation: None [employer]: Gerald Baeza MD. Per Diem Interpreter: None. Approach: Bilateral flanks Estimated blood loss: [...] for performing radiologist and scrub technologist. A aviculturist image images was obtained. Contrast was injected [...] MDReport Verified Date/Time: 02/24/2018 16:05:12 Reading Location: [place] [id number] Angio Body Reading Room ANG, NEPHROSTOMY TUBE CHANGE, [id number] 17:02:00Reason for exam:->ABDOMINAL PAIN, flank pain, blockageFINAL [...] removed over a Bentsonwire. A new 10.2 Macedonian pigtail nephrostomy catheter [...] MDReport Verified Date/Time: 12/29/2017 17:02:02 Reading Location: [place] [address] Angio Body Reading Room URINE [id number] 12:00:00 Test Item Value Reference Range Interpretation Comments CULTURE (BEAKER) (test >100,000 col/mL skin code = 1095) thomas URINALYSIS W/ [id number] 10:15:00 Test Item Value Reference Range Interpretation Comments COLOR (BEAKER) (test code [place] = 470) CLARITY (BEAKER) (test Cloudy code [...] 1582) SOURCE(BEAKER) (test code Urine, Nephrostomy = 4616) BASIC METABOLIC [id number] 10:04:00 Test Item Value Reference Range Interpretation [...] S NOT APPLICABLE FOR DIALYSIS PATIEN TS. [id number] 09:53:00 Test Item Value Reference Range Interpretation [...] PERCENT (BEAKER) (test code = 2801) URINE [id number] 09:49:00 Test Item Value Reference Range Interpretation Comments CULTURE (AKER) (test code = 1095) Amikacin (test code [...] S 25) Resistant <0 or >4 CULTURE (AKER) (test A 80-89 ,000 col/mL code = 1095) Pseudomonas aeruginosa >100,000 col/mL skin floraANG, NEPHROSTOMY TUBE CHANGE, [id number] 09:10:00Reason for exam:->ABDOMINAL PAINFINAL REPORT Fluoroscopic guided bilateral nephrostomy tube exchange ClinicalHistory: Abdominal pain, bilateral percutaneous nephrostomy catheter. Modality: Sonography and fluoroscopy [employer]: Star Brown MD. Per Diem Interpreter: None.. SEDATION: None. Estimated Blood Loss: Less [...] Brown MDReportVerified Date/Time: 12/14/2017 09:10:40 Reading Location: [facility] B1 C013Y CT Body Reading Room REET, NEPHROSTOMY TUBE CHANGE, [id number] 09:10:00Reason for exam:- >ABDOMINAL PAINFINAL REPORT Fluoroscopic guided bilateral nephrostomy tube exchange ClinicalHistory: Abdominal pain, bilateral percutaneous nephrostomy catheter. Modality: Sonography and fluoroscopy [employer]: Star Brown MD. Per Diem Interpreter: None.. SEDATION: None. Estimated Blood Loss: Less [...] Brown MDReportVerified Date/Time: 12/14/2017 09:10:40 Reading Location: [facility] C013Y CT Body Reading Room CBC W/PLT COUNT & AUTO [id number] 15:37:00 Test Item Value Reference Range Interpretation [...] (BEAKER) (test code = 2801) BASIC METABOLIC [id number] 15:27:00 Test Item Value Reference Range Interpretation [...] APPLICABLE FOR DIALYSIS PATIEN TS. URINALYSIS W/ [id number] 15:22:00 Test Item Value Reference Range Interpretation [...] Nephrostomy = 2795) ANG, NEPHROSTOMY TUBE CHANGE, [id number] 18:37:00Reason for Exam:->N13.30FINAL REPORT Procedure: Replacement of [...] MDReport Verified Date/Time: 11/19/2017 18:37:20 Reading Location: [facility] P048 Angio Body Reading Room ANG, NEPHROSTOMY TUBE CHANGE, [id number] 15:09:00Reason for exam:->FLANK PAIN FINAL REPORT Exam: [...] MDReport Verified Date/Time: 10/31/2017 15:09:40 Reading Location: [place] [id number] Angio Body Reading Room RAD, ABDOMEN, 2 OR MORE [id number] 14:41:00Reason for exam:->FLANK PAINFINAL REPORT Four views [...] MDReport Verified Date/Time: 10/31/2017 14:41:15 Reading Location: [facility] C013X Ortho Consult Reading Room [facility] METABOLIC [id number] 12:03:00 Test Item Value Reference Range Interpretation [...] PATIEN TS. CBC W/PLT COUNT & AUTO [id number] 11:30:00 Test Item Value Reference Range Interpretation [...] 0-1 PERCENT (BEAKER) (test code = 2801) [id number] 11:17:00 Test Item Value Reference Range Interpretation [...] 2.5-3.5 for patients with mechanical heart valves.BLOOD [id number] 11:00:00 Test Item Value Reference Range Interpretation Comments CULTURE (BEAKER) (test No growth in 5 days code = 1095) BLOOD [id number] 11:00:00 Test Item Value Reference Range Interpretation Comments CULTURE (BEAKER) (test No growth in 5 days code = 1095) URINE [id number] 10:04:00 Test Item Value Reference Range Interpretation Comments CULTURE (BEAKER) (test code = See comment 1095) >100,000 col/mL enteric organisms of >3 types including Pseudomonas species. No further workupperformed. Multiple organisms suggestive of colonization or contamination. Repeat collection recommended.URINE CULTURE 2017-08-07 13:38:00 Test Item Value Reference Range Interpretation Comments CULTURE (BEAKER) (test >100,000 col/mL skin code = 1095) thomas POCT-GLUCOSE [id number] 12:45:00 Test Item Value Reference Range Interpretation Comments POC-GLUCOSE METER 120 mg/dL 70-110 H TESTED AT [place] [address] ([facility]) (test code = [facility] 1538) [address] POCT-GLUCOSE [id number] 07:39:00 Test Item Value Reference Range Interpretation Comments POC-GLUCOSE METER 80 mg/dL 70-110 TESTED AT [place] [address] ([facility]) (test code = [facility] [address] 1538) CBC W/PLT COUNT & AUTO [id number] 06:22:00 Test Item Value Reference Range Interpretation Comments WHITE BLOOD CELL COUNT (BEAKER) 12.7 K/ L 3.5-10.5 H (test code = 775) RED BLOOD CELL COUNT (BEAKER) 3.13 M/ L 3.93-5.22 L (test code = 761) HEMOGLOBIN (BEAKER) (test code = 10.0 GM/DL 11.2-15.7 L 410) HEMATOCRIT (BEAKER) (test code = 31.2 % 34.1-44.9 L 411) MEAN CORPUSCULAR VOLUME (AKER) 99.7 fL 79.4-94.8 H (test code = [...] 0-1 PERCENT (BEAKER) (test code = 2801) [id number] 05:46:00 Test Item Value Reference Range Interpretation Comments MAGNESIUM (BEAKER) (test code = 1.4 mg/dL 1.6-2.6 L 627) BASIC METABOLIC [id number] 05:46:00 Test Item Value Reference Range Interpretation Comments SODIUM (BEAKER) 135 meq/L 136-145 L (test code = 381) POTASSIUM (BEAKER) 3.8 meq/L 3.5-5.1 (test code = 379) CHLORIDE (BEAKER) 104 meq/L 98-107 (test code = 382) CO2 (BEAKER) (test 24 meq/L 22-29 code = 355) BLOOD UREA NITROGEN 29 mg/dL 7-21 H ([facility]) (test code = 354) CREATININE (AKER) 1.00 mg/dL 0.57-1.25 (test code = 358) GLUCOSE RANDOM 94 mg/dL 70-105 ([facility]) (test code = 652) CALCIUM (AKER) 8.4 mg/dL 8.4-10.2 (test code = 697) EGFR ([facility]) (test 54 mL/min/1.73 ESTIMA AGUSTÍN GFR IS code = 1092) sq m NOT ACCURATE CREATININE CLEARANCE IN PREDICTING GLOMERULAR FILTRATION RATE . ESTIMATED GFR I S NOT APPLICABLE FOR DIALYSIS PATIEN TS. POCT-GLUCOSE [id number] 21:07:00 Test Item Value Reference Range Interpretation Comments POC-GLUCOSE METER 170 mg/dL 70-110 H TESTED AT [facility] 67[address] ([facility]) (test code = [place] 1538) [address] ANG, NEPHROSTOMY TUBE CHANGE, [id number] 20:09:00FINAL REPORT Right nephrostomy catheter exchange. History: Malfunctioning right nephrostomy catheter Modality: Fluoroscopy Sedation: Moderate sedation was administered. 0.5 mg of Versed and 25 mcg of fentanyl IV was used for moderate sedation monitored under my direction. Total intra-service time of sedation was 30 minutes.The patient's vital signs were monitored throughout the procedure and recorded in the patient's medical record by the nurse. [employer]: Gerald Baeza MD. Per Diem Interpreter: MD Ulysses (Fellow) Approach: Indwelling right nephrostomy [...] 2% lidocaine was used for local anesthesia. Asbestos Worker Helper images were obtained demonstrating right n ephrostomy [...] MDReport Verified Date/Time: 08/06/2017 20:09:03 Reading Location: [place] [address] Angio Body Reading Room URINALYSIS W/ [id number] 19:55:00 Test Item Value Reference Range Interpretation [...] (test code Urine, Nephrostomy = 2795) POCT-GLUCOSE [id number] 12:58:00 Test Item Value Reference Range Interpretation Comments POC-GLUCOSE METER 131 mg/dL 70-110 H TESTED AT [facility] [address] ([facility]) (test code = AM[facility] [place] 1538) [address] HEMOGLOBIN [id number] 09:30:00 Test Item Value Reference Range Interpretation Comments HEMOGLOBIN A1C (VERONICA) (test code = 5.7 % 4.3-6.1 368) POCT-GLUCOSE [id number] 07:08:00 Test Item Value Reference Range Interpretation Comments POC-GLUCOSE METER 137 mg/dL 70-110 H TESTED AT [facility] 6720 (VERONICA) (test code = AMIE Rodriguez [place] 1538) [address] [id number] 04:00:00 Test Item Value Reference Range Interpretation Comments PROTIME (VERONICA) (test code = 13.4 seconds 11.7-14.7 759) INR ([facility]) (test code = 370) 1.0 <=5.9 PARTIAL THROMBOPLASTIN TIME 30.1 seconds 22.5-36.0 (VERONICA) (test code = 760) RECOMMENDED COUMADIN/WARFARIN INR THERAPY RANGESSTANDARD DOSE: 2.0 - 3.0 Includes: PROPHYLAXIS forvenous thrombosis, systemic embolization; TREATMENT for venous thrombosis and/or pulmonary embolus.HIGH RISK: Target INR is 2.5-3.5 for patients with mechanical heart valves.U/S, RENAL, [id number] 03:58:00 Abdomen limited area? Add comment if [...] MDReport Verified Date/Time: 08/06/2017 03:58:39 Reading Location: [facility] C013X Ortho Consult Reading Room URINALYSIS W/ MICROSCOPIC 2017-08-06 [...] 1584) SOURCE(BEAKER) (test code = Urine, Voided 0506) [id number] 23:21:00 Test Item Value Reference Range Interpretation Comments LIPASE (BEAKER) (test code = 749) 31 U/L 8-78 [id number] 23:21:00 Test Item Value Reference Range Interpretation Comments AMYLASE (BEAKER) (test code = 349) 71 U/L 25-125 BASIC METABOLIC [id number] 23:21:00 Test Item Value Reference Range Interpretation [...] APPLICABLE FOR DIALYSIS PATIEN TS. HEPATIC FUNCTION [id number] 23:21:00 Test Item Value Reference Range Interpretation [...] 6-55 347) CBC W/PLT COUNT & AUTO [id number] 23:15:00 Test Item Value Reference Range Interpretation [...] 0-1 PERCENT (BEAKER) (test code = 2801) HARPREET, NEPHROSTOMY TUBE CHANGE, [id number] 11:25:00Reason for exam:->BACK PAINReason for exam:->FINAL REPORT Exchange of right percutaneous nephrostomy tube and left percutaneous nephroureteral stent. History: Back pain. Patient presented to the emergency department with a decreased drainage from the right nephrostomy catheter. Modality: Fluoroscopy Sedation: None [employer]: Star Georges MD. Per Diem Interpreter: None. Approach: ] Is approximately catheter and [...] Signed: Star Georges MDReport Verified Date/Time: 07/08/2017 11:25:07 Reading Location: [facility] P048 Angio Body Reading Room URINALYSIS W/ [id number] 09:16:00 Test Item Value Reference Range Interpretation [...] 516) SOURCE(BEAKER) (test code Urine, Nephrostomy = 3777) CBC W/PLT COUNT & AUTO [id number] 08:56:00 Test Item Value Reference Range Interpretation [...] (BEAKER) (test code = 2801) BASIC METABOLIC [id number] 08:48:00 Test Item Value Reference Range Interpretation [...] NOT APPLICABLE FOR DIALYSIS PATIEN TS. URINE [id number] 08:09:00 Test Item Value Reference Interpretation Comments [...] (test S code = 13) URINALYSIS W/ [id number] 10:28:00 Test Item Value Reference Range Interpretation [...] code Urine, Nephrostomy = 2795) BASIC METABOLIC [id number] 10:18:00 Test Item Value Reference Range Interpretation [...] PATIEN TS. CBC W/PLT COUNT & AUTO [id number] 10:12:00 Test Item Value Reference Range Interpretation [...] K/ L 0.00-0.20 (test code = 417) [id number] 10:12:00 Test Item Value Reference Range Interpretation [...] 2.5-3.5 for patients with mechanical heart valves.POCT-GLUCOSE [id number] 13:22:00 Test Item Value Reference Range Interpretation Comments POC-GLUCOSE METER 136 mg/dL 70-110 H TESTED AT [facility] 67[address] ([facility]) (test code = [place] 1538) [address] POCT-GLUCOSE [id number] 07:56:00 Test Item Value Reference Range Interpretation Comments POC-GLUCOSE METER 185 mg/dL 70-110 H TESTED AT [facility] 6720 (BEAKER) (test code = [place] 1538) [address] HEMOGLOBIN AND [id number] 06:36:00 Test Item Value Reference Range Interpretation Comments HEMOGLOBIN (BEAKER) (test code = 9.1 GM/DL 12.0-15.0 L 410) HEMATOCRIT (BEAKER) (test code = 29.3 % 36.0-45.0 L 411) BASIC METABOLIC [id number] 06:21:00 Test Item Value Reference Range Interpretation [...] S NOT APPLICABLE FOR DIALYSIS PATIEN TS. [id number] 06:05:00 Test Item Value Reference Range Interpretation [...] 2.5-3.5 for patients with mechanical heart valves.POCT-GLUCOSE [id number] 20:59:00 Test Item Value Reference Range Interpretation Comments POC-GLUCOSE METER 139 mg/dL 70-110 H TESTED AT [facility] 6720 (BEAKER) (test code = AM[facility] Rodriguez [place] 1538) [address] POCT-GLUCOSE [id number] 17:25:00 Test Item Value Reference Range Interpretation Comments POC-GLUCOSE METER 213 mg/dL 70-110 H TESTED AT [facility] 6720 (BEAKER) (test code = AMIE Rodriguez [facility] 1538) [address] BASIC METABOLIC [id number] 15:09:00 Test Item Value Reference Range Interpretation [...] NOT APPLICABLE FOR DIALYSIS PATIEN TS. PROTHROMBIN [id number] 14:53:00 Test Item Value Reference Range Interpretation Comments PROTIME (BEAKER) (test code = 15.6 seconds 11.7-14.7 H 759) INR (BEAKER) (test code = 370) 1.3 <=5.9 RECOMMENDED COUMADIN/WARFARIN INR THERAPY RANGESSTANDARD DOSE: 2.0 - 3.0 Includes: PROPHYLAXIS forvenous thrombosis, systemic embolization; TREATMENT for venous thrombosis and/or pulmonary embolus.HIGH RISK: Target INR is 2.5-3.5 for patients with mechanical heart valves.HEMOGLOBIN AND [id number] 14:50:00 Test Item Value Reference Range Interpretation Comments HEMOGLOBIN (BEAKER) (test code = 10.4 GM/DL 12.0-15.0 L 410) HEMATOCRIT (BEAKER) (test code = 32.6 % 36.0-45.0 L 411) CBC W/PLT COUNT & AUTO [id number] 12:10:00 Test Item Value Reference Range Interpretation [...] K/ L 0.00-0.20 (test code = 417) [id number] 11:59:00 Test Item Value Reference Range Interpretation Comments SODIUM (BEAKER) (test code = 381) 141 meq/L 136-145 POTASSIUM (BEAKER) (test code = 3.7 meq/L 3.5-5.1 379) CHLORIDE (BEAKER) (test code = 382) 107 meq/L 98-107 CO2 (BEAKER) (test code = 355) 24 meq/L 22-29 BUN AND [id number] 11:53:00 Test Item Value Reference Range Interpretation [...] NOT APPLICABLE FOR DIALYSIS PATIEN TS. POCT-GLUCOSE [id number] 10:51:00 Test Item Value Reference Range Interpretation Comments POC-GLUCOSE METER 52 mg/dL 70-110 L Notified R Gilmar GRECO/TESTED AT (BEAKER) (test code = [facility] [address] [address]) [facility] [address]
[2021-12-25 03:25] LABS: Absolute Lymphocytes (CBC) 0.4 K/uL (0.7-4.9); Lymphocytes % 3.5 % (15.3-44.8); MPV 7.9 fL (7.6-11.3); RBC Red Blood Cell Count 3.26 M/uL (3.86-4.86)
[2021-12-25 03:29] LABS: Protime INR 1.04
[2021-12-25 03:38] LABS: Albumin 2.4 g/dL (3.4-5.0); Bilirubin Direct 0.1 mg/dL (0-0.2); Bilirubin Total 0.3 mg/dL (0.2-1.0); Potassium 4.2 mmol/L (3.5-5.1); Protein, Total 7.4 g/dL (6.4-8.2)
[2021-12-25 04:05] LABS: Blood Morphology Comment NOT SEEN (NOT SEEN); Platelet Estimate ADEQ
--- NOTE | 2021-12-25 04:31 | ER ---
Nurse's Notes [facility] Name: Mary Archuleta Age: 81 yrs Sex: Female : 1940 Arrival Date: 12/25/2021 Time: 02:25 Bed 8 Private MD: Diagnosis: Nephrostomy tube dislodgment, right Presentation: 12/25 02:26 Chief complaint: Patient states: pt's right nephrostomy tube came out tonight. sm5 complaining of R sided abd/back pain. 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 pt's urologist is Dr. Benoit. Coronavirus screen: Vaccine status: Patient reports receiving the 2nd dose of the covid vaccine. Ebola Screen: No symptoms or risks identified at this time. Initial Sepsis Screen: Does the patient meet any 2 criteria? No. Patient's initial sepsis screen is negative. Does the patient have a suspected source of infection? No. Patient's initial sepsis screen is negative. Risk Assessment: Do you want to hurt yourself or someone else? Patient reports no desire to harm self or others. Onset of symptoms was December 25, 2021. 02:26 Method Of Arrival: EMS: [facility] 02:26 Acuity: SILVERIO 3 5 Triage Assessment: 02:34 General: Appears in no apparent distress. Behavior is cooperative. Pain: Complains of sm5 pain in right side back and abdomen. Neuro: No deficits noted. Level of Consciousness is awake, alert, obeys commands, Oriented to person, place, time, situation. Cardiovascular: No deficits noted. Respiratory: No deficits noted. Airway is patent Trachea midline Respiratory effort is even, unlabored. : Reports right nephrostomy tube pulled out. Historical: - Allergies: 02:28 Lisinopril; sm5 02:28 Xarelto; sm5 - Home Meds: 02:28 fluoxetine 20 mg oral cap [Active]; Hydrocodone-Acetaminophen Oral [Active]; metoprolol sm5 succinate Oral [Active]; pravastatin 20 mg Oral tab 1 tab once daily [Active]; torsemide Oral [Active]; Potassium Chloride Oral [Active]; Vitamin C Oral [Active]; methocarbamol 500 mg Oral tab twice a day [Active]; Zinc Sulfate Oral twice a day [Active]; Vitamin D3 oral [Active]; gabapentin 100 mg oral cap 2 caps four times a day [Active]; sulfamethoxazole-trimethoprim Oral [Active]; ropinirole oral 1 tab twice a day [Active]; Iron CR 325mg Oral 2 tabs [Active]; - PMHx: 02:43 Cervical Cancer; Depressive disorder; Restless Leg Syndrome; Hypertensive disorder; sm5 - PSHx: 02:43 Vascular Leg Surgery; sm5 - Immunization history:: Client reports receiving the 2nd dose of the Covid vaccine. - Social history:: Smoking status: Patient denies any tobacco usage or history of. Screenin:34 Abuse screen: Denies threats or abuse. Denies injuries from another. Nutritional 5 screening: No deficits noted. Tuberculosis screening: No symptoms or risk factors identified. Fall Risk None identified. Assessment: 03:00 Reassessment: see triage assessment. [facility] 04:07 Reassessment: No changes from previously documented assessment. [facility] 05:12 Reassessment: Patient and/or family updated on plan of care and expected duration. Pain 5 level reassessed. Vital Signs: 02:26 BP 145 / 97; Pulse 71; Resp 18; Temp 98.1; Pulse Ox 99% on R/A; Weight 61.23 kg; Height 5 5 ft. 1 in. (154.94 cm); Pain 9/10; 03:00 BP 149 / 116; Pulse 82; Resp 30; Pulse Ox 97% on R/A; sm5 04:00 BP 159 / 85; Pulse 78; Resp 28; Pulse Ox 95% on R/A; sm5 05:00 BP 158 / 88; Pulse 75; Resp 29; Pulse Ox 97% on R/A; 5 02:26 Body Mass Index 25.51 (61.23 kg, 154.94 cm) 5 ED Course: 02:25 Patient arrived in ED. mw2 02:25 Mary Marin RN is Primary Nurse. 5 02:27 Emmanuel Vizcaino MD is Attending Physician. 7 02:28 Triage completed. 5 02:34 Arm band placed on right wrist. 5 02:34 Patient has correct armband on for positive identification. Bed in low position. Call [facility] light in reach. Side rails up X2. monitor technician on. Pulse ox on. NIBP on. 03:00 Maintain EMS IV. Dressing intact. Good blood return noted. Site clean \\T\\ dry. Gauge \\T\\ sm 5 site: 22G right wrist. 03:04 Basic Metabolic Panel Sent. sm5 03:04 CBC with Diff Sent. sm5 03:04 Hepatic Function Sent. sm5 03:04 Lipase Sent. sm5 03:04 Ptt, Activated Sent. sm5 03:04 Protime (+inr) Sent. sm5 03:04 Basic Metabolic Panel Sent. sm5 03:27 COVID-19 SARS RT PCR (Document "Date of Onset" if Symptomatic) Sent. sm5 03:31 initiated a transfer with Cary from [facility]. mw2 04:33 administrative approval given by Cary Murdock/ patient has been accepted to [address] to the ER/ Dr. Donaldson accepted the patient in transfer/report to be called to [phone]. 05:19 No provider procedures requiring assistance completed. Patient transferred, IV remains [address] Administered Medications: 03:04 Not Given (Physician Discretion): morphine 2 mg IVP once; (PAIN>8) RASS on ADMN: sm5 Combtv4, Very Agttd3, Agttd2, Rstlss1, AlertClm0, Drwsy-1, LtSdtn-2, ModSdtn-3, DpSdtn-4, UnArsble-5 x2 03:04 Not Given (given by emss): Zofran (Ondansetron) 4 mg IVP once; over 2 minutes 5 Outcome: 04:31 ER care complete, transfer ordered by . [facility] 05:19 Transferred by ground EMS to other acute care facility: [facility]. Transfer form 5 completed. 05:19 Condition: stable 05:19 Instructed on the need for transfer. 05:20 Patient left the ED. 5 Signatures: Magi Metcalf 2 Emmanuel Vizcaino MD MD 7 Mary Marin, TASHA RN 5 Corrections: (The following items were deleted from the chart) 02:34 02:28 Home Meds: omeprazole 40 mg Oral cpDR 1 cap once daily; 5 5 34 02:28 PMHx: Hyperlipidemia; sm5 5 :34 02:28 PMHx: Diabetes - NIDDM; sm5 5 :34 02:28 PMHx: Hypertension; sm5 sm5 :34 02:28 PMHx: Hypothyroidism; sm5 sm5 : 02:28 PMHx: BREAST CA; sm5 sm5 : 02:28 PMHx: cervical cancer; sm5 sm5 : 02:28 PMHx: Atrial Fib; sm5 sm5 : 02:28 PMHx: Depression; sm5 sm5 : 02:28 PMHx: lymphedema; sm5 sm5 : 02:28 PMHx: peptic ulcers; sm5 sm5
--- NOTE | 2021-12-25 04:32 | EDPHYS ---
Physician Documentation [facility] Name: Mary Archuleta Age: 81 yrs Sex: Female : 1940 Arrival Date: 12/25/2021 Time: 02:25 Bed 8 Private MD: ED Physician Emmanuel Vizcaino HPI: 12/25 02:58 This 81 yrs old Female presents to ER via EMS with complaints of Nephrostomy tube mh7 pulled out. 02:58 The patient presents with flank pain, on the right, Right nephrostomy tube accidentally mh7 pulled out. Onset: The symptoms/episode began/occurred last night, at an unknown time. Modifying factors: The symptoms are alleviated by nothing, the symptoms are aggravated by nothing. Associated signs and symptoms: Pertinent negatives: constipation, cramping, diarrhea, dyspareunia, dysuria, fever, hematuria, nausea, urinary frequency, vaginal bleeding, vaginal discharge, vomiting. Severity of symptoms: At their worst the symptoms were moderate, last night, in the emergency department the symptoms are unchanged. Patient states that her right nephrostomy tube accidentally got pulled out last night.. Historical: - Allergies: 02:28 Lisinopril; sm5 02:28 Xarelto; sm5 - Home Meds: 02:28 fluoxetine 20 mg oral cap [Active]; Hydrocodone-Acetaminophen Oral [Active]; metoprolol sm5 succinate Oral [Active]; pravastatin 20 mg Oral tab 1 tab once daily [Active]; torsemide Oral [Active]; Potassium Chloride Oral [Active]; Vitamin C Oral [Active]; methocarbamol 500 mg Oral tab twice a day [Active]; Zinc Sulfate Oral twice a day [Active]; Vitamin D3 oral [Active]; gabapentin 100 mg oral cap 2 caps four times a day [Active]; sulfamethoxazole-trimethoprim Oral [Active]; ropinirole oral 1 tab twice a day [Active]; Iron CR 325mg Oral 2 tabs [Active]; - PMHx: 02:43 Cervical Cancer; Depressive disorder; Restless Leg Syndrome; Hypertensive disorder; sm5 - PSHx: 02:43 Vascular Leg Surgery; sm5 - Immunization history:: Client reports receiving the 2nd dose of the Covid vaccine. - Social history:: Smoking status: Patient denies any tobacco usage or history of. ROS: 02:58 Constitutional: Negative for fever, chills, and weight loss, Eyes: Negative for injury, mh7 pain, redness, and discharge, ENT: Negative for injury, pain, and discharge, Neck: Negative for injury, pain, and swelling, Cardiovascular: Negative for chest pain, palpitations, and edema, Respiratory: Negative for shortness of breath, cough, wheezing, and pleuritic chest pain, Abdomen/GI: Negative for abdominal pain, nausea, vomiting, diarrhea, and constipation, : Negative for injury, bleeding, discharge, and swelling, MS/Extremity: Negative for injury and deformity, Skin: Negative for injury, rash, and discoloration, Neuro: Negative for headache, weakness, numbness, tingling, and seizure, Psych: Negative for depression, anxiety, suicide ideation, homicidal ideation, and hallucinations, Allergy/Immunology: Negative for hives, rash, and allergies, Endocrine: Negative for neck swelling, polydipsia, polyuria, polyphagia, and marked weight changes, Hematologic/Lymphatic: Negative for swollen nodes, abnormal bleeding, and unusual bruising. Exam: 02:58 Head/Face: Normocephalic, atraumatic. Eyes: Pupils equal round and reactive to light, mh7 extra-ocular motions intact. Lids and lashes normal. Conjunctiva and sclera are non-icteric and not injected. Cornea within normal limits. Periorbital areas with no swelling, redness, or edema. Neck: Trachea midline, no thyromegaly or masses palpated, and no cervical lymphadenopathy. Supple, full range of motion without nuchal rigidity, or vertebral point tenderness. No Meningismus. Chest/axilla: Normal chest wall appearance and motion. Nontender with no deformity. No lesions are appreciated. Cardiovascular: Regular rate and rhythm with a normal S1 and S2. No gallops, murmurs, or rubs. Normal PMI, no JVD. No pulse deficits. Respiratory: Lungs have equal breath sounds bilaterally, clear to auscultation and percussion. No rales, rhonchi or wheezes noted. No increased work of breathing, no retractions or nasal flaring. Abdomen/GI: Soft, non-tender, with normal bowel sounds. No distension or tympany. No guarding or rebound. No evidence of tenderness throughout. 02:58 Skin: Warm, dry with normal turgor. Normal color with no rashes, no lesions, and no evidence of cellulitis. MS/ Extremity: Pulses equal, no cyanosis. Neurovascular intact. Full, normal range of motion. Neuro: Awake and alert, GCS 15, oriented to person, place, time, and situation. Cranial nerves II-XII grossly intact. Motor strength 5/5 in all extremities. Sensory grossly intact. Cerebellar exam normal. Normal gait. Psych: Awake, alert, with orientation to person, place and time. Behavior, mood, and affect are within normal limits. 02:58 Constitutional: The patient appears in no acute distress, alert, awake, uncomfortable. 02:58 Back: CVA tenderness, that is mild, is noted on the right, Right nephrostomy site clean, dry, intact, tube is absent. Left nephrostomy site clean, dry, intact, tube is present.. Vital Signs: 02:26 BP 145 / 97; Pulse 71; Resp 18; Temp 98.1; Pulse Ox 99% on R/A; Weight 61.23 kg; Height [facility] 5 ft. 1 in. (154.94 cm); Pain 9/10; 03:00 BP 149 / 116; Pulse 82; Resp 30; Pulse Ox 97% on R/A; 5 04:00 BP 159 / 85; Pulse 78; Resp 28; Pulse Ox 95% on R/A; 5 05:00 BP 158 / 88; Pulse 75; Resp 29; Pulse Ox 97% on R/A; 5 02:26 Body Mass Index 25.51 (61.23 kg, 154.94 cm) [facility] MDM: 04:27 Differential diagnosis: Nephrostomy tube malfunction: Nephrostomy tube displacement, mh7 flank pain. Data reviewed: vital signs, nurses notes, EMS record, old medical records, lab test result(s), CBC, electrolytes. Data interpreted: Pulse oximetry: on room air is 99 %. Interpretation: normal. Counseling: I had a detailed discussion with the patient and/or guardian regarding: the historical points, exam findings, and any diagnostic results supporting the discharge/admit diagnosis, the presence of at least one elevated blood pressure reading (>120/80) during this emergency department visit, lab results, the need to transfer to another facility, [facility] does not immediately have the required specialist. Response to treatment: the patient's symptoms have mildly improved after treatment. ED course: Discussed with Dr. Benoit, patient's urologist at [facility] who agreed the patient is nephrostomy tube placed by interventional radiology and is agreeable to patient being transferred to the ER at [facility] in the [facility]. Patient is also agreeable with the plan.. 04:31 Patient medically screened. [facility] 12/25 02:53 Order name: Basic Metabolic Panel [facility] 12/25 02:53 Order name: CBC with Diff; Complete Time: 04:10 [facility] 12/25 02:53 Order name: Hepatic Function; Complete Time: 03:56 [facility] 12/25 02:53 Order name: Lipase; Complete Time: 03:56 [facility] 12/25 02:53 Order name: Basic Metabolic Panel; Complete Time: 03:56 [facility] 12/25 02:54 Order name: Protime (+inr); Complete Time: 03:36 [facility] 12/25 02:53 Order name: IV Saline Lock; Complete Time: 03:04 [facility] 12/25 02:53 Order name: Labs collected and sent; Complete Time: 03:04 [facility] 12/25 02:54 Order name: Ptt, Activated; Complete Time: 03:36 [facility] 12/25 03:11 Order name: COVID-19 SARS RT PCR (Document "Date of Onset" if Symptomatic); Complete [facility] Time: 04:10 12/25 03:28 Order name: Manual Differential; Complete Time: 04:10 EDMS Administered Medications: 03:04 Not Given (Physician Discretion): morphine 2 mg IVP once; (PAIN>8) RASS on ADMN: sm5 Combtv4, Very Agttd3, Agttd2, Rstlss1, AlertClm0, Drwsy-1, LtSdtn-2, ModSdtn-3, DpSdtn-4, UnArsble-5 x2 03:04 Not Given (given by emss): Zofran (Ondansetron) 4 mg IVP once; over 2 minutes sm5 Disposition Summary: 12/25/21 04:31 Transfer Ordered Transfer Location: [place] [id number] Reason: Higher level of care mh7 Condition: Stable mh7 Problem: new mh7 Symptoms: have improved mh7 Accepting Physician: Dr. Green(12/25/21 05:20) sm5 Diagnosis - Nephrostomy tube dislodgment, right 7 Forms: - Medication Reconciliation Form mh7 - SBAR form mh7 Signatures: Dispatcher [employer] Emmanuel Oquendo MD MD mh7 Mary Marin RN RN sm5 Corrections: (The following items were deleted from the chart) 02:34 02:28 Home Meds: omeprazole 40 mg Oral cpDR 1 cap once daily; sm5 sm5 02:34 02:28 PMHx: Hyperlipidemia; sm5 sm5 02:34 02:28 PMHx: Diabetes - NIDDM; sm5 sm5 02:34 02:28 PMHx: Hypertension; sm5 sm5 02:34 02:28 PMHx: Hypothyroidism; sm5 sm5 02:34 02:28 PMHx: BREAST CA; sm5 sm5 02:34 02:28 PMHx: cervical cancer; sm5 sm5 02:34 02:28 PMHx: Atrial Fib; sm5 sm5 02:34 02:28 PMHx: Depression; sm5 sm5 02:34 02:28 PMHx: lymphedema; sm5 sm5 02:34 02:28 PMHx: peptic ulcers; sm5 sm5 05:20 04:31 Dr. Green 7 sm5
[2021-12-25] MEDS ORDERED: MORPHINE 4 MG/ML SYR ONE (05:17)
[2021-12-25 05:54] VITALS: TEMP 98.1
[2021-12-25 06:03] VITALS: BP 158/88; O2SAT 97
== END 2021-12-25 05:20 | disposition short-term general hospital (02) ==
LOC: ER 02:20
DX: T83.022A Displacement of nephrostomy catheter, initial encounter (principal); Z20.822 Contact with and (suspected) exposure to COVID-19
CPT/HCPCS: 85025; 80048; 36415; 85610; 80076; 85730; 83690; 99285; U0003